=== PATIENT | female | born 1965 | race Caucasian/White ===

== ENCOUNTER 2019-04-29 11:57 | Emergency (ER) | payer SELFPAY ==
[2019-04-29] MEDS ORDERED: DIAZEPAM 5 MG TABLET ONE (13:21)
[2019-04-29] MEDS ORDERED: HYDROCODONE/APAP 10/325 TAB ONE (13:21)
--- NOTE | 2019-04-29 13:36 | RAD REPORT ---
EXAM DESCRIPTION: RAD - Shoulder Right 2 View - 04/29/2019 1:27 pm CLINICAL HISTORY: right arm pain COMPARISON: No comparisons FINDINGS: Mild AC joint degenerative changes are present. No acute fracture or dislocation seen.
--- NOTE | 2019-04-29 13:42 | RAD REPORT ---
EXAM DESCRIPTION: RAD - C Spine Ap/Lat - 04/29/2019 1:34 pm CLINICAL HISTORY: right arm pain COMPARISON: No comparisons FINDINGS: Cervical bodies are normal in height and alignment.No fracture or acute bony process seen. Small posterior osteophyte noted at C4-5. No prevertebral soft tissue thickening or other suspicious soft tissue finding. IMPRESSION: Mild C4-5 spondylosis.
--- NOTE | 2019-04-29 14:16 | ER ---
Nurse's Notes [facility] Name: Bárbara Beebe Age: 53 yrs Sex: Female : 1965 Arrival Date: 04/29/2019 Time: 12:00 Bed 11 Private MD: Diagnosis: Radiculopathy, cervical region Presentation: 04/29 12:22 Presenting complaint: Patient states: pain to R side of neck, R shoulder, and down R ch arm. worse with movment. denies trauma. states I hear my neck poping too. I have hx of scoliosis. pain has been there for the past 2.5 weeks, i cant take it any more. Transition of care: patient was not received from another setting of care. Onset of symptoms was March 2019. Risk Assessment: Do you want to hurt yourself or someone else? Patient reports no desire to harm self or others. Initial Sepsis Screen: Does the patient meet any 2 criteria? No. Patient's initial sepsis screen is negative. Does the patient have a suspected source of infection? No. Patient's initial sepsis screen is negative. Care prior to arrival: None. 12:22 Method Of Arrival: Ambulatory 12:22 Acuity: ANGELA 4 Triage Assessment: 12:24 General: Appears in no apparent distress. Behavior is calm, cooperative, appropriate for age. Pain: Complains of pain in right trapezius, right arm, right posterior aspect of neck and right lateral aspect of neck Pain currently is 7 out of 10 on a pain scale. Neuro: No deficits noted. 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 - Social history:: Smoking status: Patient uses tobacco products, smokes one-half pack cigarettes per day, Patient/guardian denies using alcohol, street drugs. - Ebola Screening: : Patient negative for fever greater than or equal to 101.5 degrees Fahrenheit, and additional compatible Ebola Virus Disease symptoms Patient denies exposure to infectious person Patient denies travel to an Ebola-affected area in the 21 days before illness onset No symptoms or risks identified at this time. Screenin:45 Abuse screen: Denies threats or abuse. Denies injuries from another. Nutritional ch screening: No deficits noted. Tuberculosis screening: No symptoms or risk factors identified. Fall Risk None identified. Assessment: 12:45 General: Appears in no apparent distress. uncomfortable, Behavior is cooperative, ch appropriate for age. Pain: Complains of pain in neck and right arm and right lateral aspect of neck Pain currently is 8 out of 10 on a pain scale. 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 pt co pain to R arm with movement. Respiratory: No deficits noted. Derm: Skin is pink, warm \T\ dry. Musculoskeletal: Capillary refill < 3 seconds, in bilateral fingers. toes. Range of motion: limited in right shoulder pt reports increase in pain with movement of R shoulder and neck. reports sharp shooting pains in entire arm. 14:23 Reassessment: Patient appears in no apparent distress at this time. Patient and/or ss family updated on plan of care and expected duration. Pain level reassessed. Patient is alert, oriented x 3, equal unlabored respirations, skin warm/dry/pink. Vital Signs: 12:24 BP 142 / 91; Pulse 94; Resp 16; Temp 97.8; Pulse Ox 98% on R/A; Weight 77.11 kg; Height 5 ft. 6 in. (167.64 cm); Pain 7/10; 12:24 Body Mass Index 27.44 (77.11 kg, 167.64 cm) ED Course: 12:00 Patient arrived in ED. as 12:23 Triage completed. 12:24 Arm band placed on right wrist. Patient placed in waiting room. 12:44 Nate Hansen PA is PHCP. [facility] 12:44 Juan Joaquin MD is Attending Physician. [facility] 12:45 Anupama Villela RN is Primary Nurse. 12:45 Patient has correct armband on for positive identification. Bed in low position. 13:28 XRAY C Spine Ap/lat In Process Unspecified. EDMS 13:28 Shoulder Right (2 View) XRAY In Process Unspecified. EDMS 14:15 Samson Reed MD is Referral Physician. [facility] 14:22 No provider procedures requiring assistance completed. Patient did not have IV access ss during this emergency room visit. Administered Medications: 13:22 Drug: [place] 10 mg-325 mg 1 tabs Route: PO; ss 14:23 Follow up: Response: No adverse reaction; Pain is decreased ss 13:22 Drug: Valium 5 mg Route: PO; ss 14:23 Follow up: Response: No adverse reaction; Marked relief of symptoms; Pain is decreased ss Outcome: 14:16 Discharge ordered by . jmm 14:22 Discharged to home ambulatory. ss 14:22 Condition: good 14:22 Discharge instructions given to patient, Instructed on discharge instructions, follow up and referral plans. medication usage, Demonstrated understanding of instructions, follow-up care, medications, Prescriptions given X 3. 14:23 Patient left the ED. ss Signatures: Dispatcher [employer] EDMS Anupama Villela, RN RN Nate Ma PA PA jmm Martinez, Amelia as Smirch, Shelby, RN RN ss
--- NOTE | 2019-04-29 14:16 | EDPHYS ---
Physician Documentation [facility] Name: Bárbara Beebe Age: 53 yrs Sex: Female : 1965 Arrival Date: 04/29/2019 Time: 12:00 Bed 11 Private MD: ED Physician Juan Joaquin HPI: 04/29 13:12 This 53 yrs old Female presents to ER via Ambulatory with complaints of Neck jmm Pain, <24hrs Old, Shoulder Pain. 13:12 The patient or guardian complains of pain. Onset: The symptoms/episode began/occurred jmm gradually, 3 week(s) ago. Associated signs and symptoms: Pertinent negatives: fever. The pain radiates to the right arm. Modifying factors: The symptoms are alleviated by nothing. the symptoms are aggravated by moving head. This is a 53 year old female with a history of htn, crohns disease that presents to the ED with complaints of right sided neck pain which radiates down the right arm. Denies chest pain. . 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 - Social history:: Smoking status: Patient uses tobacco products, smokes one-half pack cigarettes per day, Patient/guardian denies using alcohol, street drugs. - Ebola Screening: : Patient negative for fever greater than or equal to 101.5 degrees Fahrenheit, and additional compatible Ebola Virus Disease symptoms Patient denies exposure to infectious person Patient denies travel to an Ebola-affected area in the 21 days before illness onset No symptoms or risks identified at this time. ROS: 13:12 Constitutional: Negative for fever, chills, and weight loss, Cardiovascular: Negative jmm for chest pain, palpitations, and edema, Respiratory: Negative for shortness of breath, cough, wheezing, and pleuritic chest pain. 13:12 Neck: Positive for pain with movement. 13:12 MS/extremity: Positive for pain. 13:12 All other systems are negative. Exam: 13:12 Constitutional: This is a well developed, well nourished patient who is awake, alert, jmm and in no acute distress. Head/Face: atraumatic. Eyes: EOMI, no conjunctival erythema appreciated ENT: Moist Mucus Membranes Neck: Trachea midline, Supple Chest/axilla: Normal chest wall appearance and motion. Cardiovascular: Regular rate and rhythm. No edema appreciated Respiratory: Normal respirations, no respiratory distress appreciated Abdomen/GI: Non distended, soft Skin: General appearance color normal 13:12 Back: right trapezius is TTP, no midline tenderness. 13:12 Musculoskeletal/extremity: ROM: intact in all extremities, full media marketing specialist strength bilaterally. 13:12 Skin: Appearance: Color: normal in color. 13:12 Neuro: Orientation: is normal, Mentation: is normal, Memory: is normal. 13:12 Psych: Behavior/mood is pleasant, cooperative. Vital Signs: 12:24 BP 142 / 91; Pulse 94; Resp 16; Temp 97.8; Pulse Ox 98% on R/A; Weight 77.11 kg; Height ch 5 ft. 6 in. (167.64 cm); Pain 7/10; 12:24 Body Mass Index 27.44 (77.11 kg, 167.64 cm) ch MDM: 13:01 Patient medically screened. [facility] 14:14 Data reviewed: vital signs, nurses notes. Counseling: I had a detailed discussion with wilfrido the patient and/or guardian regarding: the historical points, exam findings, and any diagnostic results supporting the discharge/admit diagnosis, radiology results, the need for outpatient follow up, to return to the emergency department if symptoms worsen or persist or if there are any questions or concerns that arise at home. ED course: Patient is alert and non toxic in appearance in the ED. Patient is advised to follow up ith neurosurgery or pcp for further evaluation of pain. patient is advised to return to the ED if worsening pain or weakness develop. Patient understood and agrees with the plan of care. . 04/29 13:12 Order name: XRAY C Spine Ap/lat; Complete Time: 13:46 jm 04/29 13:12 Order name: Shoulder Right (2 View) XRAY; Complete Time: 13:43 [facility] Administered Medications: 13:22 Drug: [place] 10 mg-325 mg 1 tabs Route: PO; ss 14:23 Follow up: Response: No adverse reaction; Pain is decreased 13:22 Drug: Valium 5 mg Route: PO; ss 14:23 Follow up: Response: No adverse reaction; Marked relief of symptoms; Pain is decreased ss Disposition: 17:15 Co-signature as Attending Physician, Juan Joaquin MD. Disposition: 04/29/19 14:16 Discharged to Home. Impression: Radiculopathy, cervical region. - Condition is Stable. - Discharge Instructions: Cervical Radiculopathy. - Prescriptions for Tylenol- Codeine #3 300-30 mg Oral Tablet - take 1 tablet by ORAL route every 6 hours As needed; 20 tablet. Medrol (Remigio) 4 mg Oral Tablets, Dose Pack - take 1 tablet by ORAL route as directed - follow package instructions; 1 packet. orphenadrine citrate 100 mg Oral Tablet Sustained Release - take 1 tablet by ORAL route 2 times per day As needed; 20 tablet. - Medication Reconciliation Form, Thank You Letter, Antibiotic Education, Prescription Opioid Use form. - Follow up: Samson Reed MD; When: 2 - 3 days; Reason: Recheck today's complaints, Continuance of care, Re-evaluation by your physician. Signatures: Dispatcher [employer] EDAnupama Ruff RN RN Nate Ma PA PA jmm Smirch, Shelby, RN RN ss Starr, Gregory, MD MD Corrections: (The following items were deleted from the chart) 14:23 14:16 04/29/2019 14:16 Discharged to Home. Impression: Radiculopathy, cervical region. ss Condition is Stable. Forms are Medication Reconciliation Form, Thank You Letter, Antibiotic Education, Prescription Opioid Use. Follow up: Samson Reed; When: 2 - 3 days; Reason: Recheck today's complaints, Continuance of care, Re-evaluation by your physician. sajan
[2019-04-29 14:35] VITALS: BP 142/91; TEMP 97.8; O2SAT 98
== END 2019-04-29 14:23 | disposition home or self-care (01) ==
LOC: ER 11:57
DX: M54.12 Radiculopathy, cervical region (principal); I10 Essential (primary) hypertension
CPT/HCPCS: 72040; 99283

== ENCOUNTER 2019-07-05 12:13 | Emergency (ER) | payer SELFPAY ==
--- OUTSIDE RECORDS SUMMARY | 2019-07-05 12:16 | XMS REPORT ---
:1965 Author Organization [facility] Address [address] [place] [address] Care Team Providers Name Role Phone [facility] Primary Care Provider Unavailable Problems This patient has no known problems. Allergies, Adverse Reactions, Alerts This patient has no known allergies or adverse reactions. Medications This patient has no known medications. Encounters Start End Encounter Admission Attending Care Care Encounter Date/Time Date/Time Type Type Clinicians Facility Department ID 2017-03-26 2017-03-26 Emergency [facility] [id number] 14:55:00 14:55:00 2017-03-07 2017-03-07 Emergency [facility] [id number] 17:01:00 17:01:00 2017-02-22 2017-02-22 Emergency [facility] [id number] 11:40:00 11:40:00 Results Test Description Test Time Test Comments Text Results Atomic Results Result Comments XR Abdomen KUB 1 View 2019-03-15 18:15:18 Patient: KEKE HAYNES Date/Time03/15/2019 18:02 CDTReason for ExamAbdominal distentionReportXR ABDOMEN KUB 1 VIEWDIAGNOSIS: Right lower quadrant pain and distention for 3 daysNo bowel obstruction is seen. Vascular calcifications of the abdomen and pelvis. Surgical clips are noted from a cholecystectomy. Thoracolumbar dextroscoliosis and spondylosis are seen.IMPRESSION: No acute radiographic abnormality in the abdomen. Final Dictated by: MD Corrie, Rocky Mitchell DT/TM: 03/15/2019 6:14 pmSigned by: MD Denton Michael JackSigned (Electronic Signature): 03/15/2019 6:15 pm Urinalysis Microscopic 2019-03-15 16:19:42 Test Item Value Reference Range Comments UA WBC (test code=UA WBC) 0-5 /HPF 0-5 UA RBC (test code=UA RBC) 0-4 /HPF 0-4 UA Bacteria (test code=UA Bacteria) Negative /HPF Negative UA Squam Epithelial (test code=UA Squam Epithelial) 21-73 /LPF 0-20 Urinalysis with Culture, if [id number] 16:19:42 Test Item Value Reference Range Comments UA Color (test code=UA Color) Yellow Yellow UA Appear (test code=UA Appear) Clear Clear UA pH (test code=UA pH) 6.5 UA Spec Grav (test code=UA Spec 1.004 SGU 1.005-1.030 Grav) UA Glucose (test code=UA Negative Negative Glucose) UA Bili (test code=UA Bili) Negative Negative UA Ketones (test code=UA Negative Negative Ketones) UA Blood (test code=UA Blood) Trace Negative UA Protein (test code=UA Negative Negative Protein) UA Urobilinogen (test code=UA 0.2 EU/dL >0.2 Urobilinogen) UA Nitrite (test code=UA Negative Negative Nitrite) UA Leuk Est (test code=UA Leuk Negative Negative Est) UA Micro Ind? (test code=UA Indicated Not Indicated Result created by rule Micro Ind?) GL_SET_UA_MICRO_IND [id number] 16:13:11 Test Item Value Reference Range Comments Amylase Level (test code=Amylase Level) 53 IntlUnit/L 25-115 Comprehensive Metabolic [id number] 16:13:11 Test Item Value Reference Range Comments Sodium Level (test code=Sodium Level) 142 mmol/L 136-145 Potassium Level (test code=Potassium Level) 4.0 mmol/L 3.5-5.1 Chloride Level (test code=Chloride Level) 109 mmol/L 98-107 CO2 (test code=CO2) 26 mmol/L 21-32 Anion Gap (test code=Anion Gap) 7 mmol/L 7-16 BUN (test code=BUN) 11 mg/dL 7-18 Creatinine Level (test code=Creatinine Level) 0.5 mg/dL 0.6-1.0 Glucose Level (test code=Glucose Level) 95 mg/dL 74-106 Calcium Level (test code=Calcium Level) 9.4 mg/dL 8.5-10.1 Alk Phos (test code=Alk Phos) 109 IntlUnit/L 50-136 Bilirubin Total (test code=Bilirubin Total) 0.2 mg/dL 0.2-1.0 Albumin Level (test code=Albumin Level) 4.2 g/dL 3.4-5.0 Protein Total (test code=Protein Total) 7.5 g/dL 6.4-8.2 ALT (test code=ALT) 25 IntlUnit/L 12-78 AST (test code=AST) 20 IntlUnit/L 15-37 Comprehensive Metabolic [id number] 16:13:11 Test Item Value Reference Range Comments Sodium Level (test code=Sodium Level) 142 mmol/L 136-145 Potassium Level (test code=Potassium 4.0 mmol/L 3.5-5.1 Level) Chloride Level (test code=Chloride Level) 109 mmol/L 98-107 CO2 (test code=CO2) 26 mmol/L 21-32 Anion Gap (test code=Anion Gap) 7 mmol/L 7-16 BUN (test code=BUN) 11 mg/dL 7-18 Creatinine Level (test code=Creatinine 0.5 mg/dL 0.6-1.0 Level) Glucose Level (test code=Glucose Level) 95 mg/dL 74-106 Calcium Level (test code=Calcium Level) 9.4 mg/dL 8.5-10.1 Alk Phos (test code=Alk Phos) 109 IntlUnit/L 50-136 Bilirubin Total (test code=Bilirubin 0.2 mg/dL 0.2-1.0 Total) Albumin Level (test code=Albumin Level) 4.2 g/dL 3.4-5.0 Protein Total (test code=Protein Total) 7.5 g/dL 6.4-8.2 ALT (test code=ALT) 25 IntlUnit/L 12-78 AST (test code=AST) 20 IntlUnit/L 15-37 eGFR AA (test code=eGFR AA) >60 mL/min/1.73 m2 Comprehensive Metabolic [id number] 16:13:11 Test Item Value Reference Range Comments Sodium Level (test code=Sodium Level) 142 mmol/L 136-145 Potassium Level (test code=Potassium 4.0 mmol/L 3.5-5.1 Level) Chloride Level (test code=Chloride Level) 109 mmol/L 98-107 CO2 (test code=CO2) 26 mmol/L 21-32 Anion Gap (test code=Anion Gap) 7 mmol/L 7-16 BUN (test code=BUN) 11 mg/dL 7-18 Creatinine Level (test code=Creatinine 0.5 mg/dL 0.6-1.0 Level) Glucose Level (test code=Glucose Level) 95 mg/dL 74-106 Calcium Level (test code=Calcium Level) 9.4 mg/dL 8.5-10.1 Alk Phos (test code=Alk Phos) 109 IntlUnit/L 50-136 Bilirubin Total (test code=Bilirubin 0.2 mg/dL 0.2-1.0 Total) Albumin Level (test code=Albumin Level) 4.2 g/dL 3.4-5.0 Protein Total (test code=Protein Total) 7.5 g/dL 6.4-8.2 ALT (test code=ALT) 25 IntlUnit/L 12-78 AST (test code=AST) 20 IntlUnit/L 15-37 eGFR AA (test code=eGFR AA) >60 mL/min/1.73 m2 eGFR Non-AA (test code=eGFR Non-AA) >60 mL/min/1.73 m2 Automated [id number] 16:12:15 Test Item Value Reference Range Comments Neutro Auto (test code=Neutro Auto) 55.4 % Lymph Auto (test code=Lymph Auto) 36.3 % [place] Auto (test code=[place] Auto) 5.5 % Eos, Auto (test code=Eos, Auto) 1.9 % Basophil Auto (test code=Basophil Auto) 0.9 % Neutro Absolute (test code=Neutro Absolute) 4.9 x10 2.7-7.3 Lymph Absolute (test code=Lymph Absolute) 3.2 x10 0.8-3.5 [place] Absolute (test code=[place] Absolute) 0.5 x10 0.3-0.9 Eos Absolute (test code=Eos Absolute) 0.2 x10 0.0-0.3 Baso Absolute (test code=Baso Absolute) 0.1 x10 0.0-0.1 Complete Blood Count with [id number] 16:12:14 Test Item Value Reference Range Comments WBC (test code=WBC) 8.8 x10 4.8-10.8 RBC (test code=RBC) 4.47 x10 4.20-5.50 Hgb (test code=Hgb) 13.9 g/dL 12.0-16.0 MCV (test code=MCV) 91.6 fL 80.0-95.0 Hct (test code=Hct) 41.0 % 35.0-47.0 RDW (test code=RDW) 13.4 % 11.5-14.5 MCHC (test code=MCHC) 33.9 g/dL 31.0-36.0 MCH (test code=MCH) 31.0 pg 26.0-32.0 Platelets (test 342 x10 140-440 code=Platelets) MPV (test code=MPV) 6.8 fL 7.5-11.2 Slide Review (test code=Slide Auto Result created by Review) GL_SET_SLIDE_REVIEW_AUTO Comprehensive Metabolic [id number] 14:21:14 Test Item Value Reference Range Comments Sodium Level (test code=Sodium Level) 138 mmol/L 136-145 Potassium Level (test code=Potassium Level) 4.3 mmol/L 3.5-5.1 Chloride Level (test code=Chloride Level) 105 mmol/L 98-107 CO2 (test code=CO2) 27 mmol/L 21-32 Anion Gap (test code=Anion Gap) 6 mmol/L 7-16 BUN (test code=BUN) 6 mg/dL 7-18 Creatinine Level (test code=Creatinine Level) 0.6 mg/dL 0.6-1.0 Glucose Level (test code=Glucose Level) 114 mg/dL 74-106 Calcium Level (test code=Calcium Level) 9.4 mg/dL 8.5-10.1 Alk Phos (test code=Alk Phos) 125 IntlUnit/L 50-136 Bilirubin Total (test code=Bilirubin Total) 0.4 mg/dL 0.2-1.0 Albumin Level (test code=Albumin Level) 4.1 g/dL 3.4-5.0 Protein Total (test code=Protein Total) 7.5 g/dL 6.4-8.2 ALT (test code=ALT) 31 IntlUnit/L 12-78 AST (test code=AST) 22 IntlUnit/L 15-37 Comprehensive Metabolic [id number] 14:21:14 Test Item Value Reference Range Comments Sodium Level (test code=Sodium Level) 138 mmol/L 136-145 Potassium Level (test code=Potassium 4.3 mmol/L 3.5-5.1 Level) Chloride Level (test code=Chloride Level) 105 mmol/L 98-107 CO2 (test code=CO2) 27 mmol/L 21-32 Anion Gap (test code=Anion Gap) 6 mmol/L 7-16 BUN (test code=BUN) 6 mg/dL 7-18 Creatinine Level (test code=Creatinine 0.6 mg/dL 0.6-1.0 Level) Glucose Level (test code=Glucose Level) 114 mg/dL 74-106 Calcium Level (test code=Calcium Level) 9.4 mg/dL 8.5-10.1 Alk Phos (test code=Alk Phos) 125 IntlUnit/L 50-136 Bilirubin Total (test code=Bilirubin 0.4 mg/dL 0.2-1.0 Total) Albumin Level (test code=Albumin Level) 4.1 g/dL 3.4-5.0 Protein Total (test code=Protein Total) 7.5 g/dL 6.4-8.2 ALT (test code=ALT) 31 IntlUnit/L 78 AST (test code=AST) 22 IntlUnit/L 15-37 eGFR AA (test code=eGFR AA) >60 mL/min/1.73 m2 Comprehensive Metabolic [id number] 14:21:14 Test Item Value Reference Range Comments Sodium Level (test code=Sodium Level) 138 mmol/L 136-145 Potassium Level (test code=Potassium 4.3 mmol/L 3.5-5.1 Level) Chloride Level (test code=Chloride Level) 105 mmol/L 98-107 CO2 (test code=CO2) 27 mmol/L 21-32 Anion Gap (test code=Anion Gap) 6 mmol/L 7-16 BUN (test code=BUN) 6 mg/dL 7-18 Creatinine Level (test code=Creatinine 0.6 mg/dL 0.6-1.0 Level) Glucose Level (test code=Glucose Level) 114 mg/dL 74-106 Calcium Level (test code=Calcium Level) 9.4 mg/dL 8.5-10.1 Alk Phos (test code=Alk Phos) 125 IntlUnit/L 50-136 Bilirubin Total (test code=Bilirubin 0.4 mg/dL 0.2-1.0 Total) Albumin Level (test code=Albumin Level) 4.1 g/dL 3.4-5.0 Protein Total (test code=Protein Total) 7.5 g/dL 6.4-8.2 ALT (test code=ALT) 31 IntlUnit/L 12-78 AST (test code=AST) 22 IntlUnit/L 15-37 eGFR AA (test code=eGFR AA) >60 mL/min/1.73 m2 eGFR Non-AA (test code=eGFR Non-AA) >60 mL/min/1.73 m2 Pro B Natriuretic [id number] 14:05:15 Test Item Value Reference Range Comments NT-proBNP (test 6 pg/mL 0-125 < 300 pg/ml - heart failure code=NT-proBNP) unlikelyAge less than 50 years, > 450 pg/ml - heart failure lilkelyAge 50 - 75 years, > 900 pg/ml - heart failure likelyAge greater than 75 years, > 1800 pg/ml - heart failure likely Complete Blood Count with [id number] 13:59:12 Test Item Value Reference Range Comments WBC (test code=WBC) 12.0 x10 4.8-10.8 RBC (test code=RBC) 4.86 x10 4.20-5.50 Hgb (test code=Hgb) 14.6 g/dL 12.0-16.0 MCV (test code=MCV) 88.9 fL 80.0-95.0 Hct (test code=Hct) 43.2 % 35.0-47.0 MCHC (test code=MCHC) 33.9 g/dL 31.0-36.0 RDW (test code=RDW) 13.7 % 11.5-14.5 MCH (test code=MCH) 30.1 pg 26.0-32.0 Platelets (test 470 x10 140-440 code=Platelets) MPV (test code=MPV) 6.2 fL 7.5-11.2 Slide Review (test code=Slide Auto Result created by Review) GL_SET_SLIDE_REVIEW_AUTO Automated [id number] 13:59:12 Test Item Value Reference Range Comments Neutro Auto (test code=Neutro Auto) 68.5 % Lymph Auto (test code=Lymph Auto) 24.5 % [place] Auto (test code=[place] Auto) 5.6 % Eos, Auto (test code=Eos, Auto) 1.0 % Basophil Auto (test code=Basophil Auto) 0.4 % Neutro Absolute (test code=Neutro Absolute) 8.2 x10 2.7-7.3 Lymph Absolute (test code=Lymph Absolute) 2.9 x10 0.8-3.5 [place] Absolute (test code=[place] Absolute) 0.7 x10 0.3-0.9 Eos Absolute (test code=Eos Absolute) 0.1 x10 0.0-0.3 Baso Absolute (test code=Baso Absolute) 0.0 x10 0.0-0.1 XR Chest 2 [id number] 13:41:47Patient: KEKE HAYNES Date/Time02/24/201913:18 CDTReason for ExamShortness of breathReportInformation: Dyspnea, chest pain, cough and hypertensionChest 2 viewsIn comparison to prior chest x-ray dated 10/06/2018 there is bilateral pulmonary hyperexpansion. The heart and mediastinum are normal. Pulmonary vascularity is unremarkable. Small scattered healed fibrocalcific deposits are identified.IMPRESSION:1. Pulmonary hyperexpansion consistent with COPD2. Sequela of old granulomatous disease. Final Dictated by: MD Webster Gustavo MDictated DT/TM: 02/24/2019 1:40 pmSigned by : MD Webster Gustavo MSigned (Electronic Signature): 02/24/2019 1:41 pmXR Chest 2 [id number] 10:31:38Patient: KEKE HAYNES Date/Time10/06/2018 10:23 CDTReason for ExamCoughReportXR CHEST 2 VIEWSDIAGNOSIS: Cough and chest painThe heart, lungs and bony thorax are unremarkable and unchanged since 09/22/2018. Hyperinflation suggesting early COPD.IMPRESSION: No active disease and no change since 2018. Final Dictated by: MD Denton Michael JackDictjacob DT/TM: 10:30 amSigned by: MD Denton Michael JackSigned (Electronic Signature): 10/06/2018 10:31 amXR Chest 2 [id number] 14:38:49Patient: KEKE HAYNES Date/ Time09/22/201814:05 CSTReason for ExamRespiratory distressReportCHEST 2 VIEWS: HISTORY: Respiratory distress, fever, shortness of breathCOMPARISON: 2017The cardiomediastinal silhouette shows no significant abnormality.No pleural fluid or pulmonary infiltrates are identified.The bony architecture appears intact, where adequately seen.IMPRESSION:No active cardiopulmonary process is identified. Final Dictated by: MD Azevedo Ramon JulioDictated DT/TM: 09/22/2018 2:38 pmSigned by: MD Azevedo Ramon JulioSigned (Electronic Signature): 09/22/2018 2:38 pmXR Ankle Complete 3+ Views [id number] 07:53:52Patient: KEKE HAYNES Date/Time09/04/2018 22:40 CSTReason for ExamInjuryReportEXAMINATION: Right ankle 3 viewsTECHNIQUE: AP, lateral, and oblique views of the right ankle were performed.COMPARISON: NoneINDICATION: Fall with posttraumatic right ankle painFINDINGS:No acute fracture-dislocation. No osseous erosions or periosteal reaction. Jointspaces are are relatively well- maintained. No radiopaque foreign bodies. Soft tissues are grossly unremarkable.IMPRESSION:No acute osseous abnormalities of the right ankle. Final Dictated by: MD Cruz, SamerDictated DT/TM: 09/05/2018 7:49 amSigned by: MD Cruz, RuthrSigned (Electronic Signature): 09/05/2018 7: 53 amXR Foot Complete 3+ Views [id number] 07:53:39Patient: KEKE HAYNES Date/Time09/04/2018 22: 40 CSTReason for ExamInjuryReportEXAMINATION: Left foot 3 viewsTECHNIQUE: AP, lateral, and oblique views of the left foot were performed.COMPARISON: Left foot x-rays 01/05/2008INDICATION: Fall with posttraumatic left foot painFINDINGS: No acute fracture-dislocation. No osseous erosions or periostealreaction. Mild degenerative changes of the midfoot. No radiopaque foreign bodies. Soft tissues are grossly unremarkable.IMPRESSION:No acute osseous abnormalities of the left foot. Final Dictated by: MD Cruz, SamerDictated DT/TM: 2018 7:52 amSigned by: MD Cruz, SamerSigned(Electronic Signature): 2018 7:53 amCT Abdomen and Pelvis w/o [id number] 14:15:18Patient: KEKE HAYNES Date/ Time07/09/2018 13:45 CSTReason for Examhematuria, RLQ pain; HematuriaReportREASON FOR STUDY: Hematuria;hematuria, RLQ painCT ABDOMEN AND CT PELVIS WITHOUT CONTRAST:Radiation dose lowering techniques were used with automated exposure control, adjusting the mA according to patient's size.Multiple transverse images were obtained through the upper abdomen and the pelvis. No intravenous contrast material was administered, as ordered.Small 4 mm nodule noted in the right lower lobe. Suggest 6-8 month follow-up CT scan. Small bullous changes are noted in the left base. Stable density in the left base may represent a focal area of scar.Calcific granulomas are noted within the spleen.There is evidence of prior cholecystectomy.Surgical clip noted along the anterior upper pelvis. The spleen has a normal appearance. The pancreas is unremarkable.Common duct measures 7 mm without definite intrahepatic duct dilatation.No abnormalities are demonstrated in the kidneys. No hydronephrosis is observed.No enlarged lymph nodes areseen in the retroperitoneum or the pelvis. There are a few diverticula involving the left colon without signs of diverticulitis.IMPRESSION:4 mm right lower lobe nodule. Small additional area of focal scarring left lung base with a few small bulla present. Recommend follow-up CT chest 6-8 months.Statuspost cholecystectomy with no intrahepatic duct dilatation.Nonobstructive bowel pattern with a few noncomplicated left colonic diverticula. Final Dictated by: MD Leary Craig ADictated DT/TM: 07/09/2018 2:02 pmSigned by: MD Leary Craig ASigned ( Electronic Signature): 07/09/2018 2:[id number] 18:24:00 Test Item Value Reference Range Comments GLUCOSE (test code=URGLU) NEGATIVE MG/DL NEG-100 BILIRUBN (test code=URBILI) NEGATIVE NEGATIVE KETONE (test code=URKET) NEGATIVE MG/DL NEGATIVE BLOOD (test code=URBLD) TRACE UR PH (test code=URPH) 8.0 5.0-7.5 PROTEIN (test code=URPRO) NEGATIVE MG/DL NEGATIVE NITRITES (test code=URNIT) NEGATIVE NEGATIVE UROBILINGEN (test code=URURO) 0.2 EU/DL 0.2-1.0 LEUKOCYT (test code=URLEU) NEGATIVE NEGATIVE UA COLOR (test code=UA COLOR) YELLOW YELLOW CLARITY (test code=CLARITY) CLEAR CLEAR SP GRAV (test code=URSPGRAV) 1.005 1.000-1.025 UAMICRO (test code=UAMICRO) YES WBC (test code=URWBC) 0 /HPF 0-5 RBC (test code=URRBC) 3 /HPF 0-2 CASTS (test code=CAST) 1 /LPF 0-3 UR EPI (test code=EPI) 15 /LPF BACTERIA (test code=BACTERIA) NEGATIVE NONE [id number] 18:16:00 Test Item Value Reference Range Comments SODIUM (test code=NA) 143 MMOL/L 137-145 K+ (test code=KSERUM) 3.4 MMOL/L 3.5-5.1 PLEASE NOTE NEW REFERENCE RANGE(S) IN EFFECT EFFECTIVE 02/22/2010 - NEW ANALYZER (coRank [id number]) CHLORIDE (test code=CL) 108 MMOL/L 98-107 CO2 (test code=CO2) 30 MMOL/L 22-30 BUN (test code=BUN) 9 MG/DL 7-17 CREA (test code=CREA) 0.5 MG/DL 0.7-1.2 GLUCOSE (test 98 MG/DL 70-99 Fasting glucose normal code=GLUCOSE) <100 MG/DL- P[employer] recommendation CALCIUM (test 9.7 MG/DL 8.4-10.2 code=CABLOOD) TOTPROT (test 7.2 G/DL 6.3-8.2 code=TOTPROT) ALBUMIN (test 4.5 G/DL 3.5-5.0 code=ALBSERUM) BILITOT (test 0.3 MG/DL 0.2-1.3 code=BILITOT) AST (test code=AST) 27 U/L 15-46 PHOSALK (test 80 U/L 38-126 code=PHOSALK) ALT (test code=ALT) 33 U/L 13-69 GFR (test code=GFR) 137 mL/min/1.73m2 A GFR of >90 mL/min/1.73m2 is considered normal. [id number] 18:16:00 Test Item Value Reference Range Comments LIPASE (test code=LIPA) 95 U/L 23-300 [id number] 18:07:00 Test Item Value Reference Range Comments WBC (test code=WBC) 6.9 K/UL 3.5-10.9 RBC (test code=RBC) 4.14 M/UL 4.0-5.0 HGB (test code=HGB) 12.5 G/DL 11.5-15.5 HCT (test code=HCT) 36.5 % 34-46 MCV (test code=MCV) 88.2 FL 80-98 MCH (test code=MCH) 30.2 PG 28-32 MCHC (test code=MCHC) 34.2 G/DL 32.5-36.5 RDW (test code=RDW) 13.0 % 11.5-14.5 PLT (test code=PLT) 343 K/UL 150-450 MPV (test code=MPV) 8.8 FL 7.4-10.4 MANDIFF (test code=MANDIFF) NO SCAN (test code=SCAN) NO NEUT% (test code=NEUT%) 50.6 % 40-75 LYMPH% (test code=LYMPH%) 41.2 % 24-44 MONO% (test code=MONO%) 5.8 % 0-13 EOS% (test code=EOS%) 1.9 % 0-4 BASO % (test code=BASO%) 0.4 % 0-2 IG (test code=IG) 0 % 0-1 IG% (test code=IG%) 0.1 % 0-1 IG%=Metamyelocytes, Myelocytes, and Promyelocytes. (Immature neutrophils not including "bands".) > 3% IG indicates risk of sepsis NRBC% (test code=NRBC%) 0 /100 WBC ABS NEUT (test code=NEUT) 3.5 K/UL 1.2-7.2 OCCULT BLOOD, [id number] 06:35:00 Test Item Value Reference Range Comments OCCULT BLOOD FECES (test code=OCCBLFEC) NEGATIVE NEGATIVE LOT# CRD (test code=LOT# CRD) 23088 EXP CRD (test code=EXP CRD) 10-20 LOT# DVL (test code=LOT# DVL) [id number] EXP DVL (test code=EXP DVL) 7-21 INT QC (test code=INT QC) PASSED [id number] 00:14:00 Test Item Value Reference Range Comments SODIUM (test code=NA) 143 MMOL/L 137-145 K+ (test code=KSERUM) 4.5 MMOL/L 3.5-5.1 PLEASE NOTE NEW REFERENCE RANGE(S) IN EFFECT EFFECTIVE 02/22/2010 - NEW ANALYZER (coRank [id number]) CHLORIDE (test code=CL) 108 MMOL/L 98-107 CO2 (test code=CO2) 24 MMOL/L 22-30 BUN (test code=BUN) 12 MG/DL 7-17 CREA (test code=CREA) 0.6 MG/DL 0.7-1.2 GLUCOSE (test 95 MG/DL 70-99 Fasting glucose normal code=GLUCOSE) <100 MG/DL- P[employer] recommendation CALCIUM (test 9.8 MG/DL 8.4-10.2 code=CABLOOD) TOTPROT (test 6.8 G/DL 6.3-8.2 code=TOTPROT) ALBUMIN (test 4.2 G/DL 3.5-5.0 code=ALBSERUM) BILITOT (test 0.2 MG/DL 0.2-1.3 code=BILITOT) AST (test code=AST) 23 U/L 15-46 PHOSALK (test 87 U/L 38-126 code=PHOSALK) ALT (test code=ALT) 61 U/L 13-69 GFR (test code=GFR) 111 mL/min/1.73m2 A GFR of >90 mL/min/1.73m2 is considered normal. [id number] 00:14:00 Test Item Value Reference Range Comments LIPASE (test code=LIPA) 134 U/L 23-300 ABDOMEN 2 [id number] 21:18:[address] [id number] IMAGING REPORTPatient Name: Amaris HAYNES of Service: [id number]: 52 Sex: F Order #: [id number] [facility] 1965 [facility] Number: [id number] Record Number: [id number] Hospital Number: [id number] Physician: YANNA HAROOrdering Physician: Mallika MAY.History: Abdomen pain.Technique: 3 supine and upright abdominal projections were obtained andreviewed.Findings:There is no specific acute appearing abdominal abnormality.There is no evidence to suggest obstruction or free air.The osseous structures appear intact. There is rotatory dextroscoliosis ofthe lumbar spine.Impression:No specific acute appearing abdominal abnormalities.Electronically Signed By: Hao Cole M.D., 2017 9:16 PMLegally authenticated by CLARA Talley 2018-04-04 21:16: [id number] 17:07:00 Test Item Value Reference Range Comments WBC (test code=WBC) 10.3 K/UL 3.5-10.9 RBC (test code=RBC) 3.62 M/UL 4.0-5.0 HGB (test code=HGB) 11.5 G/DL 11.5-15.5 HCT (test code=HCT) 33.6 % 34-46 MCV (test code=MCV) 92.8 FL 80-98 MCH (test code=MCH) 31.8 PG 28-32 MCHC (test code=MCHC) 34.2 G/DL 32.5-36.5 RDW (test code=RDW) 14.1 % 11.5-14.5 PLT (test code=PLT) 663 K/UL 150-450 MPV (test code=MPV) 8.1 FL 7.4-10.4 MANDIFF (test code=MANDIFF) NO SCAN (test code=SCAN) NO NEUT% (test code=NEUT%) 54.7 % 40-75 LYMPH% (test code=LYMPH%) 35.4 % 24-44 MONO% (test code=MONO%) 6.4 % 0-13 EOS% (test code=EOS%) 2.4 % 0-4 BASO % (test code=BASO%) 0.4 % 0-2 IG (test code=IG) 0 % 0-1 IG% (test code=IG%) 0.7 % 0-1 IG%=Metamyelocytes, Myelocytes, and Promyelocytes. (Immature neutrophils not including "bands".) > 3% IG indicates risk of sepsis NRBC% (test code=NRBC%) 0 /100 WBC ABS NEUT (test code=NEUT) 5.6 K/UL 1.2-7.2 [id number] 17:06:00 Test Item Value Reference Range Comments GLUCOSE (test code=URGLU) NEGATIVE MG/DL NEG-100 BILIRUBN (test code=URBILI) NEGATIVE NEGATIVE KETONE (test code=URKET) NEGATIVE MG/DL NEGATIVE BLOOD (test code=URBLD) NEGATIVE UR PH (test code=URPH) 6.5 5.0-7.5 PROTEIN (test code=URPRO) NEGATIVE MG/DL NEGATIVE NITRITES (test code=URNIT) NEGATIVE NEGATIVE UROBILINGEN (test code=URURO) 0.2 EU/DL 0.2-1.0 LEUKOCYT (test code=URLEU) NEGATIVE NEGATIVE UA COLOR (test code=UA COLOR) YELLOW YELLOW CLARITY (test code=CLARITY) CLEAR CLEAR SP GRAV (test code=URSPGRAV) 1.005 1.000-1.025 UAMICRO (test code=UAMICRO) NO CT ABDOMEN/PELVIS [id number] 16:28:[address] [id number] IMAGING REPORTPatient Name : Amaris HAYNES of Service: [id number]: 52 Sex: F Order #: [id number] [facility] 1965 X-Ray Number: [id number] Record Number: [id number] Hospital Number: [id number] Physician: YANNA HAROOrdering Physician: DANETTE CLARK ABDOMEN/PELVIS WITH 04/01/2018 3:52 PMHistory: Abd pain without fever, nausea, vomiting, Crohn's diseaseComparisons : 01/26/2016This CT exam was performed using one or more of the following dosereduction techniques: Automated exposure control, adjustment of the MAand/ or KV according to patient size or use of iterative reconstructiontechnique.IV and oral contrast was administered for the procedure.FINDINGS:There is diffuse mucosal thickening of the distal descending colon andsigmoid colon, likely representing Crohn's disease.There is a moderate amount colonic fecal loading.There is no small bowel obstruction.There has been cholecystectomy with dilated biliary system also seen onprevious exam.Both kidneys enhance symmetrically without hydronephrosis.There are splenic calcifications.There is no evidence for ascites, pneumoperitoneum or pneumatosis.IMPRESSION:Nonspecific mucosal thickening of the distal colon most likely related tohistory of Crohn's disease.There is no associated perforation or abscess.Electronically Signed By: Juan Rodriguez M.D., 04/01/2018 4:25 PMLegally authenticated by GEORG[place] WISEMAN 2018-04-01 16:25:[id number] 14:29:00 Test Item Value Reference Range Comments BLOOD TYPE (test code=TYPE) O Rh Positive ANTIBODY SCREEN (test code=SCREEN) NEGATIVE NEGATIVE PROTHROMBIN TIME WITH [id number] 14:13:00 Test Item Value Reference Range Comments PROTHROMBIN TIME (test 12.5 SECONDS 12.0-14.6 INR Usual Range=2 to 3 for code=PT) prevention of deep vein thrombosis (DVT) INR (test code=INR) 0.9 [id number] 14:13:00 Test Item Value Reference Range Comments PTT (test code=PTT) 37.8 SECONDS 24.4-36.3 HEPARIN THERAPEUTIC RANGE 57-92 SECONDS [id number] 14:00:00 Test Item Value Reference Range Comments SODIUM (test code=NA) 140 MMOL/L 137-145 K+ (test code=KSERUM) 4.3 MMOL/L 3.5-5.1 PLEASE NOTE NEW REFERENCE RANGE(S) IN EFFECT EFFECTIVE 02/22/2010 - NEW ANALYZER (coRank [id number]) CHLORIDE (test code=CL) 103 MMOL/L 98-107 CO2 (test code=CO2) 29 MMOL/L 22-30 BUN (test code=BUN) 7 MG/DL 7-17 CREA (test code=CREA) 0.5 MG/DL 0.7-1.2 GLUCOSE (test 100 MG/DL 70-99 Fasting glucose normal code=GLUCOSE) <100 MG/DL- [employer] recommendation CALCIUM (test 9.5 MG/DL 8.4-10.2 code=CABLOOD) TOTPROT (test 6.6 G/DL 6.3-8.2 code=TOTPROT) ALBUMIN (test 4.1 G/DL 3.5-5.0 code=ALBSERUM) BILITOT (test 0.4 MG/DL 0.2-1.3 code=BILITOT) AST (test code=AST) 72 U/L 15-46 PHOSALK (test 117 U/L 38-126 code=PHOSALK) ALT (test code=ALT) 139 U/L 13-69 GFR (test code=GFR) 137 mL/min/1.73m2 A GFR of >90 mL/min/1.73m2 is considered normal. [id number] 14:00:00 Test Item Value Reference Range Comments LIPASE (test code=LIPA) 40 U/L 23-300 [id number] 13:51:00 Test Item Value Reference Range Comments WBC (test code=WBC) 12.5 K/UL 3.5-10.9 RBC (test code=RBC) 3.40 M/UL 4.0-5.0 HGB (test code=HGB) 10.5 G/DL 11.5-15.5 HCT (test code=HCT) 31.8 % 34-46 MCV (test code=MCV) 93.5 FL 80-98 MCH (test code=MCH) 30.9 PG 28-32 MCHC (test code=MCHC) 33.0 G/DL 32.5-36.5 RDW (test code=RDW) 13.8 % 11.5-14.5 PLT (test code=PLT) 441 K/UL 150-450 MPV (test code=MPV) 8.5 FL 7.4-10.4 MANDIFF (test code=MANDIFF) NO SCAN (test code=SCAN) NO NEUT% (test code=NEUT%) 70.7 % 40-75 LYMPH% (test code=LYMPH%) 21.5 % 24-44 MONO% (test code=MONO%) 4.7 % 0-13 EOS% (test code=EOS%) 2.3 % 0-4 BASO % (test code=BASO%) 0.2 % 0-2 IG (test code=IG) 0 % 0-1 IG% (test code=IG%) 0.6 % 0-1 IG%=Metamyelocytes, Myelocytes, and Promyelocytes. (Immature neutrophils not including "bands".) > 3% IG indicates risk of sepsis ABS NEUT (test code=NEUT) 8.8 K/UL 1.2-7.2 [id number] 13:22:00 Test Item Value Reference Range Comments GLUCOSE (test code=URGLU) NEGATIVE MG/DL NEG-100 BILIRUBN (test code=URBILI) NEGATIVE NEGATIVE KETONE (test code=URKET) NEGATIVE MG/DL NEGATIVE BLOOD (test code=URBLD) NEGATIVE UR PH (test code=URPH) 7.5 5.0-7.5 PROTEIN (test code=URPRO) NEGATIVE MG/DL NEGATIVE NITRITES (test code=URNIT) NEGATIVE NEGATIVE UROBILINGEN (test code=URURO) 0.2 EU/DL 0.2-1.0 LEUKOCYT (test code=URLEU) NEGATIVE NEGATIVE UA COLOR (test code=UA COLOR) YELLOW YELLOW CLARITY (test code=CLARITY) CLEAR CLEAR SP GRAV (test code=URSPGRAV) 1.003 1.000-1.025 UAMICRO (test code=UAMICRO) NO SPINE LUMBAR [id number] 13:32:[address] [id number] IMAGING REPORTPatient Name: DALLAS Amaris of Service: [id number]: 51 Sex: F Order #: [id number] Room: [facility]: 1965 X-Ray Number: [id number] Record Number: [id number] Hospital Number: [id number] Physician: MICHELLE YEOrdering Physician: LAURNECE HONG SPINE 5 VIEWS:CLINICALHISTORY: Back pain radiates into both legs and hipsTECHNIQUE: AP, lateral, bilateral oblique and coned-down lateral views wereobtainedFINDINGS:There are 5 nonrib-bearing lumbar vertebral bodies demonstrated.There is no fracture or dislocation demonstrated.Changes of discogenic disease are noted at L5-S1 with degenerative changesin the articular facets.There are surgical clips in the right upper quadrant and overlying theright sacroiliac joint.Impression:1. No acute changes are demonstrated.2. Chronic changes as described.Electronically Signed By: Jim Streeter M.D. , 10/16/2017 1:29 PMLegally authenticated by JENNIFER Daniels 2017-10-16 13:29 :[id number] 12:33:00 Test Item Value Reference Range Comments GLUCOSE (test code=URGLU) NEGATIVE MG/DL NEG-100 BILIRUBN (test code=URBILI) NEGATIVE NEGATIVE KETONE (test code=URKET) NEGATIVE MG/DL NEGATIVE BLOOD (test code=URBLD) NEGATIVE UR PH (test code=URPH) 5.5 5.0-7.5 PROTEIN (test code=URPRO) NEGATIVE MG/DL NEGATIVE NITRITES (test code=URNIT) NEGATIVE NEGATIVE UROBILINGEN (test code=URURO) 0.2 EU/DL 0.2-1.0 LEUKOCYT (test code=URLEU) NEGATIVE NEGATIVE UA COLOR (test code=UA COLOR) YELLOW YELLOW CLARITY (test code=CLARITY) CLEAR CLEAR SP GRAV (test code=URSPGRAV) 1.010 1.000-1.025 UAMICRO (test code=UAMICRO) NO WBC (test code=URWBC) 1 /HPF 0-5 RBC (test code=URRBC) 1 /HPF 0-2 CASTS (test code=CAST) 0 /LPF 0-3 UR EPI (test code=EPI) 25 /LPF BACTERIA (test code=BACTERIA) NEGATIVE NONE [id number] 06:46:50CHEST 2 VIEWREASON FOR STUDY: COPD-Cough- SOBFINDINGS:The heart and mediastinum are within normal limits. Minor linearscarring or atelectasis is noted involving the right infrahilar region.Lungs appear slightly hyperinflated. Bony structures appear intact. . No other significant findings. IMPRESSION: Minor linear scarring or atelectasis involving the right infrahilarregion. Chest is otherwise clear.
[2019-07-05] MEDS ORDERED: HYDROCODONE/APAP 5/325 MG TAB ONE (13:40)
[2019-07-05] MEDS ORDERED: DIAZEPAM 5 MG TABLET ONE (13:41)
[2019-07-05 13:50] LABS: Urine Blood TRACE (NEG); Urine Glucose NEGATIVE (NEG); Urine Protein NEGATIVE (NEG); Urine Specific Gravity <1.005 (1.005-1.030); Urine pH 5.5 (5.0-7.0)
[2019-07-05] MEDS ORDERED: dexAMETHasone 10 MG/ML VIAL ONE (13:55)
--- NOTE | 2019-07-05 14:57 | ER ---
Nurse's Notes [facility] Name: Bárbara Beebe Age: 53 yrs Sex: Female : 1965 Arrival Date: 07/05/2019 Time: 12:17 Bed 23 Private MD: Diagnosis: Low back pain Presentation: 07/05 12:20 Presenting complaint: Low back pain x 3 days. Denies injury. Transition of care: hb patient was not received from another setting of care. Onset of symptoms was July 03, 2019. Risk Assessment: Do you want to hurt yourself or someone else? Patient reports no desire to harm self or others. Initial Sepsis Screen: Does the patient meet any 2 criteria? No. Patient's initial sepsis screen is negative. Does the patient have a suspected source of infection? No. Patient's initial sepsis screen is negative. Care prior to arrival: None. 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 - Social history:: Smoking status: Patient uses tobacco products, smokes one-half pack cigarettes per day. - Ebola Screening: : No symptoms or risks identified at this time. Screenin:00 Fall Risk None identified. mg2 15:11 Abuse screen: Denies threats or abuse. Denies injuries from another. Nutritional mg2 screening: No deficits noted. Tuberculosis screening: No symptoms or risk factors identified. Assessment: 14:00 General: Appears in no apparent distress. comfortable, Behavior is calm, cooperative. mg2 14:00 Pain: Complains of pain in right low back Pain does not radiate. Pain currently is 8 mg2 out of 10 on a pain scale. Neuro: Level of Consciousness is awake, alert, obeys commands, Oriented to person, place, time, situation. Cardiovascular: Capillary refill < 3 seconds Patient's skin is warm and dry. Respiratory: Airway is patent Respiratory effort is even, unlabored, Respiratory pattern is regular, symmetrical. GI: No signs and/or symptoms were reported involving the gastrointestinal system. : No signs and/or symptoms were reported regarding the genitourinary system. EENT: No signs and/or symptoms were reported regarding the EENT system. Derm: Skin is intact, is healthy with good turgor, Skin is pink, warm \T\ dry. normal. Musculoskeletal: Circulation, motion, and sensation intact. Capillary refill < 3 seconds, Reports pain in back. Vital Signs: 12:21 BP 179 / 88; Pulse 90; Resp 16; Temp 98.3; Pulse Ox 100% on R/A; Weight 68.04 kg; hb Height 5 ft. 2 in. (157.48 cm); Pain 6/10; 15:05 BP 148 / 80; Pulse 72; Resp 16; Temp 97.9(O); Pulse Ox 98% ; lt1 12:21 Body Mass Index 27.44 (68.04 kg, 157.48 cm) hb ED Course: 12:17 Patient arrived in ED. mr 12:20 Triage completed. hb 12:21 Arm band placed on. hb 13:05 Nate Hansen PA is PHCP. [facility] 13:05 Kamari Salvador MD is Attending Physician. [facility] 13:27 Uri Miller, FRANKI is Primary Nurse. mg2 15:12 Patient has correct armband on for positive identification. mg2 15:12 No provider procedures requiring assistance completed. Patient did not have IV access mg2 during this emergency room visit. Administered Medications: 13:40 Drug: Valium 5 mg Route: PO; mg2 15:01 Follow up: Response: No adverse reaction; Marked relief of symptoms mg2 13:41 Drug: [place] 5 mg-325 mg 1 tabs Route: PO; mg2 15:01 Follow up: Response: No adverse reaction; Marked relief of symptoms mg2 13:57 Drug: Decadron 10 mg Route: IM; Site: left gluteus; mg2 15:01 Follow up: Response: No adverse reaction; Marked relief of symptoms mg2 Outcome: 14:56 Discharge ordered by . jmm 15:12 Discharged to home ambulatory, with family. mg2 15:12 Condition: stable 15:12 Discharge instructions given to patient, family, Instructed on discharge instructions, follow up and referral plans. medication usage, Demonstrated understanding of instructions, follow-up care, medications, Prescriptions given X 3. 15:12 Patient left the ED. mg2 Signatures: Nate Hansen PA PA [facility] Shade Kandice mr Mackenzie Palmer RN RN hb Uri Miller RN RN mg2 Tanesha, Ruby 1 Corrections: (The following items were deleted from the chart) 12:22 12:21 LMP N/A - Post-menopause hb hb
--- NOTE | 2019-07-05 14:58 | EDPHYS ---
Physician Documentation [facility] Name: Bárbara Beebe Age: 53 yrs Sex: Female : 1965 Arrival Date: 07/05/2019 Time: 12:17 Bed 23 Private MD: ED Physician Kamari Salvador HPI: 07/05 13:30 This 53 yrs old Female presents to ER via Ambulatory with complaints of Back jmm Pain. 13:30 The patient presents with pain that is acute. Onset: The symptoms/episode jmm began/occurred gradually, 2 day(s) ago. The pain does not radiate. Associated signs and symptoms: Pertinent negatives: abdominal pain, fever, hematuria, incontinence, nausea, numbness, vomiting, weakness. Patient complains of right lower back pain which began 2 days ago. Patient denies known injury but states she has been lifting her grandson. Denies radiation of pain or weakness. . 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 - Social history:: Smoking status: Patient uses tobacco products, smokes one-half pack cigarettes per day. - Ebola Screening: : No symptoms or risks identified at this time. ROS: 13:30 Constitutional: Negative for fever, chills, and weight loss, Cardiovascular: Negative jmm for chest pain, palpitations, and edema, Respiratory: Negative for shortness of breath, cough, wheezing, and pleuritic chest pain, Abdomen/GI: Negative for abdominal pain, nausea, vomiting, diarrhea, and constipation. 13:30 : Negative for injury, bleeding, discharge, and swelling. 13:30 Back: Positive for pain at rest, pain with movement. 13:30 Neuro: Negative for weakness. 13:30 All other systems are negative. Exam: 13:30 Constitutional: This is a well developed, well nourished patient who is awake, alert, jmm and in no acute distress. Head/Face: atraumatic. Eyes: EOMI, no conjunctival erythema appreciated ENT: Moist Mucus Membranes Neck: Trachea midline, Supple Chest/axilla: Normal chest wall appearance and motion. Cardiovascular: Regular rate and rhythm. No edema appreciated Respiratory: Normal respirations, no respiratory distress appreciated Abdomen/GI: Non distended, soft 13:30 Back: pain, that is mild, of the right low back, vertebral tenderness, is not appreciated. 13:30 Skin: Appearance: Color: normal in color. 13:30 Neuro: Orientation: is normal, Mentation: is normal, Memory: is normal. 13:30 Psych: Behavior/mood is pleasant, cooperative. Vital Signs: 12:21 BP 179 / 88; Pulse 90; Resp 16; Temp 98.3; Pulse Ox 100% on R/A; Weight 68.04 kg; hb Height 5 ft. 2 in. (157.48 cm); Pain 6/10; 15:05 BP 148 / 80; Pulse 72; Resp 16; Temp 97.9(O); Pulse Ox 98% ; lt1 12:21 Body Mass Index 27.44 (68.04 kg, 157.48 cm) hb MDM: 13:06 Patient medically screened. [facility] 14:54 Data reviewed: vital signs, nurses notes. Counseling: I had a detailed discussion with sajan the patient and/or guardian regarding: the historical points, exam findings, and any diagnostic results supporting the discharge/admit diagnosis, lab results, the need for outpatient follow up, to return to the emergency department if symptoms worsen or persist or if there are any questions or concerns that arise at home. ED course: Pain decreased in the ED. Patient given strict return precautions. patient understood and agrees with the plan of care. . 07/05 13:33 Order name: Urine Dipstick--Ancillary (enter results) bd 07/05 13:51 Order name: Urine Dipstick-Ancillary; Complete Time: 13:54 EDMS 07/05 13:06 Order name: Urine Dipstick-Ancillary (obtain specimen); Complete Time: 13:27 [facility] Administered Medications: 13:40 Drug: Valium 5 mg Route: PO; mg2 15:01 Follow up: Response: No adverse reaction; Marked relief of symptoms mg2 13:41 Drug: [place] 5 mg-325 mg 1 tabs Route: PO; mg2 15:01 Follow up: Response: No adverse reaction; Marked relief of symptoms mg2 13:57 Drug: Decadron 10 mg Route: IM; Site: left gluteus; mg2 15:01 Follow up: Response: No adverse reaction; Marked relief of symptoms mg2 Disposition: 14:54 Chart complete. [facility] 15:24 Co-signature as Attending Physician, Kamari Salvador MD I agree with the assessment and vanna plan of care. Disposition: 07/05/19 14:56 Discharged to Home. Impression: Low back pain. - Condition is Stable. - Discharge Instructions: Back Pain, Adult. - Prescriptions for Prednisone 20 mg Oral Tablet - take 3 tablet by ORAL route once daily for 5 days; 15 tablet. Zanaflex 4 mg Oral Tablet - take 1 tablet by ORAL route every 8 hours As needed; 20 tablet. Tramadol 50 mg Oral Tablet - take 1 tablet by ORAL route every 8 hours as needed; 12 tablet. - Medication Reconciliation Form, Thank You Letter, Antibiotic Education, Prescription Opioid Use form. - Follow up: Private Physician; When: 2 - 3 days; Reason: Recheck today's complaints, Continuance of care, Re-evaluation by your physician. Signatures: Dispatcher [employer] EDKamari Gilliam MD MD cha Mickail, Joel, PA PA [facility] Mackenzie Palmer, FRANKI RN Uri Miller RN RN mg2 Corrections: (The following items were deleted from the chart) 15:12 14:56 07/05/2019 14:56 Discharged to Home. Impression: Low back pain. Condition is mg2 Stable. Forms are Medication Reconciliation Form, Thank You Letter, Antibiotic Education, Prescription Opioid Use. Follow up: Private Physician; When: 2 - 3 days; Reason: Recheck today's complaints, Continuance of care, Re-evaluation by your physician. wilfrido
[2019-07-05 15:37] VITALS: BP 148/80; TEMP 97.9; O2SAT 98
== END 2019-07-05 15:12 | disposition home or self-care (01) ==
LOC: ER 12:13
DX: M54.5 Low back pain (principal); I10 Essential (primary) hypertension; F17.210 Nicotine dependence, cigarettes, uncomplicated
CPT/HCPCS: 81003; 96372; 99283; J1100

== ENCOUNTER 2019-08-01 19:10 | Emergency (ER) | payer SELFPAY ==
--- OUTSIDE RECORDS SUMMARY | 2019-08-01 19:13 | XMS REPORT ---
:1965 Author Organization [facility] Address [address] [place] [address] Care Team Providers Name Role Phone [facility] Primary Care Provider Unavailable Problems This patient has no known problems. Allergies, Adverse Reactions, Alerts This patient has no known allergies or adverse reactions. Medications This patient has no known medications. Encounters Start End Encounter Admission Attending Care Care Encounter Date/Time Date/Time Type Type Clinicians Facility Department ID 2017-03-26 2017-03-26 Emergency [facility] [id number] 14:55:00 14:55:00 2017-03-07 2017-03-07 Emergency [facility] [id number] 17:01:00 17:01:00 2017-02-22 2017-02-22 Emergency [facility] [id number] 11:40:00 11:40:00 Results Test Description Test Time [...] 21-73 /LPF 0-20 Urinalysis with Culture, if [id number] 16:19:42 Test Item Value Reference Range Comments [...] Result created by rule Micro Ind?) GL_SET_UA_MICRO_IND [id number] 16:13:11 Test Item Value Reference Range Comments Amylase Level (test code=Amylase Level) 53 IntlUnit/L 25-115 Comprehensive Metabolic [id number] 16:13:11 Test Item Value Reference Range Comments [...] (test code=AST) 20 IntlUnit/L 15-37 Comprehensive Metabolic [id number] 16:13:11 Test Item Value Reference Range Comments [...] code=eGFR AA) >60 mL/min/1.73 m2 Comprehensive Metabolic [id number] 16:13:11 Test Item Value Reference Range Comments [...] (test code=eGFR Non-AA) >60 mL/min/1.73 m2 Automated [id number] 16:12:15 Test Item Value Reference Range Comments Neutro Auto (test code=Neutro Auto) 55.4 % Lymph Auto (test code=Lymph Auto) 36.3 % [place] Auto (test code=[place] Auto) 5.5 % Eos, Auto (test code=Eos, Auto) 1.9 % Basophil Auto (test code=Basophil Auto) 0.9 % Neutro Absolute (test code=Neutro Absolute) 4.9 x10 2.7-7.3 Lymph Absolute (test code=Lymph Absolute) 3.2 x10 0.8-3.5 [place] Absolute (test code=[place] Absolute) 0.5 x10 0.3-0.9 Eos Absolute (test code=Eos Absolute) 0.2 x10 0.0-0.3 Baso Absolute (test code=Baso Absolute) 0.1 x10 0.0-0.1 Complete Blood Count with [id number] 16:12:14 Test Item Value Reference Range Comments [...] Result created by Review) GL_SET_SLIDE_REVIEW_AUTO Comprehensive Metabolic [id number] 14:21:14 Test Item Value Reference Range Comments [...] (test code=AST) 22 IntlUnit/L 15-37 Comprehensive Metabolic [id number] 14:21:14 Test Item Value Reference Range Comments [...] code=eGFR AA) >60 mL/min/1.73 m2 Comprehensive Metabolic [id number] 14:21:14 Test Item Value Reference Range Comments [...] Non-AA) >60 mL/min/1.73 m2 Pro B Natriuretic [id number] 14:05:15 Test Item Value Reference Range Comments NT-proBNP (test 6 pg/mL 0-125 < 300 pg/ml - heart failure code=NT-proBNP) unlikelyAge less than 50 years, > 450 pg/ml - heart failure lilkelyAge 50 - 75 years, > 900 pg/ml - heart failure likelyAge greater than 75 years, > 1800 pg/ml - heart failure likely Complete Blood Count with [id number] 13:59:12 Test Item Value Reference Range Comments [...] Auto Result created by Review) GL_SET_SLIDE_REVIEW_AUTO Automated Vnxtbbqpddlf2888-60-15 13:59:12 Test Item Value Reference Range Comments Neutro Auto (test code=Neutro Auto) 68.5 % Lymph Auto (test code=Lymph Auto) 24.5 % [place] Auto (test code=[place] Auto) 5.6 % Eos, Auto (test code=Eos, Auto) 1.0 % Basophil Auto (test code=Basophil Auto) 0.4 % Neutro Absolute (test code=Neutro Absolute) 8.2 x10 2.7-7.3 Lymph Absolute (test code=Lymph Absolute) 2.9 x10 0.8-3.5 [place] Absolute (test code=[place] Absolute) 0.7 x10 0.3-0.9 Eos Absolute (test code=Eos Absolute) 0.1 x10 0.0-0.3 Baso Absolute (test code=Baso Absolute) 0.0 x10 0.0-0.1 XR Chest 2 [id number] 13:41:47Patient: KEKE HAYNES Date/Time02/24/201913:18 CDTReason for ExamShortness [...] (Electronic Signature): 02/24/2019 1:41 pmXR Chest 2 [id number] 10:31:38Patient: KEKE HAYNES Date/Time10/06/2018 10:23 CDTReason for ExamCoughReportXR CHEST 2 VIEWSDIAGNOSIS: Cough and chest painThe heart, lungs and bony thorax are unremarkable and unchanged since 09/22/2018. Hyperinflation suggesting early COPD.IMPRESSION: No active disease and no change since 2018. Final Dictated by: MD Denton Michael JackDictjacob DT/TM: 10:30 amSigned by: MD Denton Michael JackSigned (Electronic Signature): 10/06/2018 10:31 amXR Chest 2 [id number] 14:38:49Patient: KEKE HAYNES Date/ Time09/22/201814:05 CSTReason for [...] 09/22/2018 2:38 pmXR Ankle Complete 3+ Views [id number] 07:53:52Patient: KEKE HAYNES Date/Time09/04/2018 22:40 CSTReason for [...] 7: 53 amXR Foot Complete 3+ Views [id number] 07:53:39Patient: KEKE HAYNES Date/Time09/04/2018 22: 40 CSTReason [...] 2018 7:53 amCT Abdomen and Pelvis w/o [id number] 14:15:18Patient: KEKE HAYNES Date/ Time07/09/2018 13:45 CSTReason [...] Leary Craig ASigned ( Electronic Signature): 07/09/2018 2:[id number] 18:24:00 Test Item Value Reference Range Comments [...] 15 /LPF BACTERIA (test code=BACTERIA) NEGATIVE NONE [id number] 18:16:00 Test Item Value Reference Range Comments SODIUM (test code=NA) 143 MMOL/L 137-145 K+ (test code=KSERUM) 3.4 MMOL/L 3.5-5.1 PLEASE NOTE NEW REFERENCE RANGE(S) IN EFFECT EFFECTIVE 02/22/2010 - NEW ANALYZER (Threadflip 5600) CHLORIDE (test code=CL) 108 MMOL/L 98-107 CO2 (test code=CO2) 30 MMOL/L 22-30 BUN (test code=BUN) 9 MG/DL 7-17 CREA (test code=CREA) 0.5 MG/DL 0.7-1.2 GLUCOSE (test 98 MG/DL 70-99 Fasting glucose normal code=GLUCOSE) <100 MG/DL- [employer] recommendation CALCIUM (test 9.7 MG/DL 8.4-10.2 code=CABLOOD) TOTPROT (test 7.2 G/DL 6.3-8.2 code=TOTPROT) ALBUMIN (test 4.5 G/DL 3.5-5.0 code=ALBSERUM) BILITOT (test 0.3 MG/DL 0.2-1.3 code=BILITOT) AST (test code=AST) 27 U/L 15-46 PHOSALK (test 80 U/L 38-126 code=PHOSALK) ALT (test code=ALT) 33 U/L 13-69 GFR (test code=GFR) 137 mL/min/1.73m2 A GFR of >90 mL/min/1.73m2 is considered normal. [id number] 18:16:00 Test Item Value Reference Range Comments LIPASE (test code=LIPA) 95 U/L 23-300 [id number] 18:07:00 Test Item Value Reference Range Comments [...] (test code=NEUT) 3.5 K/UL 1.2-7.2 OCCULT BLOOD, [id number] 06:35:00 Test Item Value Reference Range Comments OCCULT BLOOD FECES (test code=OCCBLFEC) NEGATIVE NEGATIVE LOT# CRD (test code=LOT# CRD) 34843 EXP CRD (test code=EXP CRD) 10-20 LOT# DVL (test code=LOT# DVL) 34687 EXP DVL (test code=EXP DVL) 7-21 INT QC (test code=INT QC) PASSED [id number] 00:14:00 Test Item Value Reference Range Comments SODIUM (test code=NA) 143 MMOL/L 137-145 K+ (test code=KSERUM) 4.5 MMOL/L 3.5-5.1 PLEASE NOTE NEW REFERENCE RANGE(S) IN EFFECT EFFECTIVE 02/22/2010 - NEW ANALYZER (Threadflip 5600) CHLORIDE (test code=CL) 108 MMOL/L 98-107 CO2 (test code=CO2) 24 MMOL/L 22-30 BUN (test code=BUN) 12 MG/DL 7-17 CREA (test code=CREA) 0.6 MG/DL 0.7-1.2 GLUCOSE (test 95 MG/DL 70-99 Fasting glucose normal code=GLUCOSE) <100 MG/DL- [employer] recommendation CALCIUM (test 9.8 MG/DL 8.4-10.2 code=CABLOOD) TOTPROT (test 6.8 G/DL 6.3-8.2 code=TOTPROT) ALBUMIN (test 4.2 G/DL 3.5-5.0 code=ALBSERUM) BILITOT (test 0.2 MG/DL 0.2-1.3 code=BILITOT) AST (test code=AST) 23 U/L 15-46 PHOSALK (test 87 U/L 38-126 code=PHOSALK) ALT (test code=ALT) 61 U/L 13-69 GFR (test code=GFR) 111 mL/min/1.73m2 A GFR of >90 mL/min/1.73m2 is considered normal. [id number] 00:14:00 Test Item Value Reference Range Comments LIPASE (test code=LIPA) 134 U/L 23-300 ABDOMEN 2 [id number] 21:18:[address] [id number] IMAGING REPORTPatient Name: Amaris HAYNES of Service: [id number]: 52 Sex: F Order #: [id number] [facility] 1965 [facility] Number: [id number] Record Number: [id number] Hospital Number: [id number] Physician: YANNA HAROOrdering Physician: Mallika MAY.History: Abdomen pain.Technique: 3 supine and upright abdominal projections were obtained andreviewed.Findings:There is no specific acute appearing abdominal abnormality.There is no evidence to suggest obstruction or free air.The osseous structures appear intact. There is rotatory dextroscoliosis ofthe lumbar spine.Impression:No specific acute appearing abdominal abnormalities.Electronically Signed By: Hao Cole M.D., 2017 9:16 PMLegally authenticated by CLARA Talley 2018-04-04 21:16: [id number] 17:07:00 Test Item Value Reference Range Comments [...] ABS NEUT (test code=NEUT) 5.6 K/UL 1.2-7.2 [id number] 17:06:00 Test Item Value Reference Range Comments [...] 1.000-1.025 UAMICRO (test code=UAMICRO) NO CT ABDOMEN/PELVIS [id number] 16:28:[address] [id number] IMAGING REPORTPatient Name : Amaris HAYNES of Service: [id number]: 52 Sex: F Order #: [id number] [facility] 1965 [facility] Number: [id number] Record Number: [id number] Hospital Number: [id number] Physician: YANNA HAROOrdering Physician: DANETTE CLARK ABDOMEN/PELVIS [...] 4:25 PMLegally authenticated by GEORGIA WISEMAN 2018-04-01 16:25:[id number] 14:29:00 Test Item Value Reference Range Comments BLOOD TYPE (test code=TYPE) O Rh Positive ANTIBODY SCREEN (test code=SCREEN) NEGATIVE NEGATIVE PROTHROMBIN TIME WITH [id number] 14:13:00 Test Item Value Reference Range Comments PROTHROMBIN TIME (test 12.5 SECONDS 12.0-14.6 INR Usual Range=2 to 3 for code=PT) prevention of deep vein thrombosis (DVT) INR (test code=INR) 0.9 [id number] 14:13:00 Test Item Value Reference Range Comments PTT (test code=PTT) 37.8 SECONDS 24.4-36.3 HEPARIN THERAPEUTIC RANGE 57-92 SECONDS [id number] 14:00:00 Test Item Value Reference Range Comments SODIUM (test code=NA) 140 MMOL/L 137-145 K+ (test code=KSERUM) 4.3 MMOL/L 3.5-5.1 PLEASE NOTE NEW REFERENCE RANGE(S) IN EFFECT EFFECTIVE 02/22/2010 - NEW ANALYZER (Threadflip 5600) CHLORIDE (test code=CL) 103 MMOL/L 98-107 CO2 (test code=CO2) 29 MMOL/L 22-30 BUN (test code=BUN) 7 MG/DL 7-17 CREA (test code=CREA) 0.5 MG/DL 0.7-1.2 GLUCOSE (test 100 MG/DL 70-99 Fasting glucose normal code=GLUCOSE) <100 MG/DL- [employer] recommendation CALCIUM (test 9.5 MG/DL 8.4-10.2 code=CABLOOD) TOTPROT (test 6.6 G/DL 6.3-8.2 code=TOTPROT) ALBUMIN (test 4.1 G/DL 3.5-5.0 code=ALBSERUM) BILITOT (test 0.4 MG/DL 0.2-1.3 code=BILITOT) AST (test code=AST) 72 U/L 15-46 PHOSALK (test 117 U/L 38-126 code=PHOSALK) ALT (test code=ALT) 139 U/L 13-69 GFR (test code=GFR) 137 mL/min/1.73m2 A GFR of >90 mL/min/1.73m2 is considered normal. [id number] 14:00:00 Test Item Value Reference Range Comments LIPASE (test code=LIPA) 40 U/L 23-300 [id number] 13:51:00 Test Item Value Reference Range Comments [...] ABS NEUT (test code=NEUT) 8.8 K/UL 1.2-7.2 [id number] 13:22:00 Test Item Value Reference Range Comments [...] 1.000-1.025 UAMICRO (test code=UAMICRO) NO SPINE LUMBAR [id number] 13:32:[address] [id number] IMAGING REPORTPatient Name: DALLAS Amaris of Service: [id number]: 51 Sex: F Order #: [id number] [facility]: 1965 X-Ray Number: [id number] Record Number: [id number] Hospital Number: [id number] Physician: MICHELLE YEOrdering Physician: LAURENCE HONG SPINE 5 VIEWS:CLINICALHISTORY: Back pain radiates [...] PMLegally authenticated by JENNIFER Daniels 2017-10-16 13:29 :[id number] 12:33:00 Test Item Value Reference Range Comments [...] 25 /LPF BACTERIA (test code=BACTERIA) NEGATIVE NONE 63781& [id number] 06:46:50CHEST 2 VIEWREASON FOR STUDY: COPD-Cough- SOBFINDINGS:The heart and mediastinum are within normal limits. Minor linearscarring or atelectasis is noted involving the right infrahilar region.Lungs appear slightly hyperinflated. Bony structures appear intact. . No other significant findings. IMPRESSION: Minor linear scarring or atelectasis involving the right infrahilarregion. Chest is otherwise clear.
[2019-08-01] MEDS ORDERED: IPRATROPIUM BROM 0.5MG/2.5ML ONE (20:01)
[2019-08-01] MEDS ORDERED: ALBUTEROL 2.5 MG/3 ML NEB SOL ONE (20:01)
[2019-08-01] MEDS ORDERED: predniSONE 20 MG TAB ONE (20:01)
--- NOTE | 2019-08-01 20:31 | RAD REPORT ---
EXAM DESCRIPTION: RAD - Chest Pa And Lat (2 Views) - 08/01/2019 7:48 pm CLINICAL HISTORY: SOB Chest pain. COMPARISON: No comparisons FINDINGS: Mild reticular opacities are present in both lungs may indicate asthma or interstitial pne umonitis/ bronchitis. No focal infiltrate typical of pneumonia seen. The heart is normal in size. No displaced fractures.
[2019-08-01] MEDS ORDERED: LEVALBUTEROL 0.63 MG/3 ML NEB ONE (21:46)
--- NOTE | 2019-08-01 22:29 | ER ---
Nurse's Notes [facility] Name: Bárbara Beebe Age: 53 yrs Sex: Female : 1965 Arrival Date: 08/01/2019 Time: 19:11 Bed 20 Private MD: Diagnosis: Acute sinusitis;Bronchitis, not specified as acute or chronic Presentation: 08/01 19:13 Presenting complaint: Patient states: "I've had this for 3 weeks it just keeps getting aj1 worse, I've been doing albuterol at home every 4 hours, and I have kind of an infection taste in my mouth and it just feels like I can't do it anymore" Reports subjective fever, cough, nasal congestion, body aches. Transition of care: patient was not received from another setting of care. Onset of symptoms was August 01, 2019. Risk Assessment: Do you want to hurt yourself or someone else? Patient reports no desire to harm self or others. Initial Sepsis Screen: Does the patient meet any 2 criteria? HR > 90 bpm. No. Patient's initial sepsis screen is negative. Does the patient have a suspected source of infection? Yes: Productive cough/pneumonia. Care prior to arrival: None. 19:13 Method Of Arrival: Ambulatory aj1 19:13 Acuity: ANGELA 3 aj1 Triage Assessment: 19:15 General: Appears in no apparent distress. uncomfortable, Behavior is calm, cooperative, aj1 appropriate for age. Pain: Denies pain. EENT: Reports nasal congestion nasal discharge. Neuro: Level of Consciousness is awake, alert, obeys commands. Cardiovascular: Patient's skin is warm and dry. Respiratory: Reports shortness of breath Airway is patent Respiratory effort is even, unlabored, Respiratory pattern is regular, symmetrical, tachypnea Onset: The symptoms/episode began/occurred 3 weeks ago, the patient has moderate shortness of breath. TUBE TURNER: 19:15 LMP N/A - Post-menopause aj1 Historical: - Allergies: 19:15 No Known Allergies; aj1 - PMHx: 19:15 Crohn's; Hypertension; COPD; aj1 - Immunization history:: Flu vaccine is not up to date. - Social history:: Smoking status: Patient uses tobacco products, denies chronic smoking, but will smoke occasionally. - Ebola Screening: : Patient denies travel to an Ebola-affected area in the 21 days before illness onset. Screenin:16 Abuse screen: Denies threats or abuse. Denies injuries from another. Nutritional wh screening: No deficits noted. Tuberculosis screening: No symptoms or risk factors identified. Fall Risk None identified. Assessment: 20:13 General: Appears in no apparent distress. Behavior is calm, cooperative, appropriate wh for age. Pain: Denies pain. Neuro: Level of Consciousness is awake, alert, obeys commands, Oriented to person, place, time, situation, Appropriate for age. Cardiovascular: Heart tones S1 S2 Rhythm is regular. Respiratory: Airway is patent Respiratory effort is even, unlabored, Respiratory pattern is regular, symmetrical, Breath sounds with wheezes. GI: Abdomen is flat, non-distended. : No signs and/or symptoms were reported regarding the genitourinary system. EENT: Throat is pink. Derm: Skin is intact, is healthy with good turgor, Skin is pink, warm \\T\\ dry. normal. Musculoskeletal: Circulation, motion, and sensation intact. 21:15 Reassessment: Patient appears in no apparent distress at this time. No changes from previously documented assessment. Patient and/or family updated on plan of care and expected duration. Pain level reassessed. Patient is alert, oriented x 3, equal unlabored respirations, skin warm/dry/pink. 22:41 Reassessment: Patient appears in no apparent distress at this time. No changes from previously documented assessment. Patient and/or family updated on plan of care and expected duration. Pain level reassessed. Patient is alert, oriented x 3, equal unlabored respirations, skin warm/dry/pink. Patient denies pain at this time. Patient states feeling better. Patient states symptoms have improved. Vital Signs: 19:15 BP 159 / 104; Pulse 98; Resp 24; Temp 98.4; Pulse Ox 98% on R/A; Weight 68.04 kg (R); aj1 Height 5 ft. 2 in. (157.48 cm) (R); Pain 0/10; 20:18 BP 133 / 76; Pulse 85; Resp 18; Pulse Ox 98% on R/A; wh 21:15 BP 127 / 79; Pulse 95; Resp 18; Pulse Ox 96% on R/A; wh 22:41 BP 132 / 62; Pulse 82; Resp 18; Pulse Ox 95% on R/A; wh 19:15 Body Mass Index 27.44 (68.04 kg, 157.48 cm) [facility] ED Course: 19:11 Patient arrived in ED. jg7 19:15 Triage completed. aj1 19:15 Arm band placed on Patient placed in an exam room. aj1 19:19 Salo Golden NP is PHCP. pm1 19:19 Arnulfo Jackson MD is Attending Physician. pm1 19:39 Hoa Cuevas is Primary Nurse. 19:48 Chest Pa And Lat (2 Views) XRAY In Process Unspecified. EDMS 20:16 Patient has correct armband on for positive identification. Bed in low position. Call light in reach. Side rails up X 1. Pulse ox on. NIBP on. 22:42 No provider procedures requiring assistance completed. Patient did not have IV access during this emergency room visit. Administered Medications: 20:03 Drug: Albuterol - atroVENT (3:1) (2.5 mg - 0.5 mg) 3 ml Route: Nebulizer; 21:48 Follow up: Response: No adverse reaction 21:49 Follow up: Response: No adverse reaction; Wheezing diminished 20:03 Drug: predniSONE 60 mg Route: PO; 21:49 Follow up: Response: No adverse reaction 21:48 Drug: Xopenex 1.25 mg Route: Inhalation; 22:43 Follow up: Response: No adverse reaction; Wheezing diminished Outcome: 22:28 Discharge ordered by MD. pm1 22:42 Discharged to home ambulatory. 22:42 Condition: stable 22:42 Discharge instructions given to patient, Instructed on discharge instructions, follow up and referral plans. medication usage, POC Demonstrated understanding of instructions, follow-up care, medications, POC Prescriptions given X 4. 22:43 Patient left the ED. Signatures: Dispatcher [employer] EDOK Selma Cole RN RN aj Salo Golden, MARISOL CARDIO CLINICIAN pm1 Hoa Cuevas Gala Jackson jg7
--- NOTE | 2019-08-01 22:29 | EDPHYS ---
Physician Documentation [facility] Name: Bárbara Beebe Age: 53 yrs Sex: Female : 1965 Arrival Date: 08/01/2019 Time: 19:11 Bed 20 Private MD: ED Physician Arnulfo Jackson HPI: 08/01 19:45 This 53 yrs old Female presents to ER via Ambulatory with complaints of pm1 Breathing Difficulty. 19:45 The patient has shortness of breath at rest. Onset: The symptoms/episode began/occurred pm1 3 week(s) ago. Duration: The symptoms are continuous. The patient's shortness of breath is aggravated by New environment, just moved to the area. House scent fresheners , is alleviated by nothing. Associated signs and symptoms: Pertinent positives: productive cough, Pertinent negatives: chest pain, fever. Severity of symptoms: in the emergency department the symptoms are worse. The patient has experienced similar episodes in the past, a few times. The patient has not recently seen a physician, just moved to the area. Patient reports sinus congestion, drainage, and post nasal drip for the past 3 weeks. Has been using breathing treatment without improvement. Feels that she might need some steroid treatment. 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 - Social history:: Smoking status: Patient uses tobacco products, denies chronic smoking, but will smoke occasionally. - Ebola Screening: : Patient denies travel to an Ebola-affected area in the 21 days before illness onset. ROS: 19:45 Constitutional: Negative for fever, chills, and weight loss, Eyes: Negative for injury, pm1 pain, redness, and discharge, Neck: Negative for injury, pain, and swelling, Cardiovascular: Negative for chest pain, palpitations, and edema. 19:45 Abdomen/GI: Negative for abdominal pain, nausea, vomiting, diarrhea, and constipation, Back: Negative for injury and pain, MS/Extremity: Negative for injury and deformity, Skin: Negative for injury, rash, and discoloration, Neuro: Negative for headache, weakness, numbness, tingling, and seizure. 19:45 ENT: Positive for nasal discharge, sinus congestion, sinus pain, Negative for drainage from ear(s), ear pain. 19:45 Respiratory: Positive for cough, shortness of breath, wheezing. Exam: 19:45 Constitutional: This is a well developed, well nourished patient who is awake, alert, pm1 and in no acute distress. Head/Face: Normocephalic, atraumatic. Neck: Trachea midline, no thyromegaly or masses palpated, and no cervical lymphadenopathy. Supple, full range of motion without nuchal rigidity, or vertebral point tenderness. No Meningismus. Chest/axilla: Normal chest wall appearance and motion. Nontender with no deformity. No lesions are appreciated. Cardiovascular: Regular rate and rhythm with a normal S1 and S2. No gallops, murmurs, or rubs. Normal PMI, no JVD. No pulse deficits. 19:45 Abdomen/GI: Soft, non-tender, with normal bowel sounds. No distension or tympany. No guarding or rebound. No evidence of tenderness throughout. Back: No spinal tenderness. No costovertebral tenderness. Full range of motion. Skin: Warm, dry with normal turgor. Normal color with no rashes, no lesions, and no evidence of cellulitis. MS/ Extremity: Pulses equal, no cyanosis. Neurovascular intact. Full, normal range of motion. 19:45 Respiratory: the patient does not display signs of respiratory distress, Respirations: normal, Breath sounds: wheezing: is heard diffusely. 19:45 Neuro: Orientation: is normal, Motor: is normal, moves all fours. Vital Signs: 19:15 BP 159 / 104; Pulse 98; Resp 24; Temp 98.4; Pulse Ox 98% on R/A; Weight 68.04 kg (R); aj1 Height 5 ft. 2 in. (157.48 cm) (R); Pain 0/10; 20:18 BP 133 / 76; Pulse 85; Resp 18; Pulse Ox 98% on R/A; wh 21:15 BP 127 / 79; Pulse 95; Resp 18; Pulse Ox 96% on R/A; wh 22:41 BP 132 / 62; Pulse 82; Resp 18; Pulse Ox 95% on R/A; wh 19:15 Body Mass Index 27.44 (68.04 kg, 157.48 cm) aj1 MDM: 19:26 Patient medically screened. pm1 22:23 Data reviewed: vital signs. Data interpreted: Pulse oximetry: on room air is 98 %. pm1 Interpretation: normal. Counseling: I had a detailed discussion with the patient and/or guardian regarding: the historical points, exam findings, and any diagnostic results supporting the discharge/admit diagnosis, lab results, radiology results, the need for outpatient follow up, to return to the emergency department if symptoms worsen or persist or if there are any questions or concerns that arise at home. 22:23 ED course: Patient with sinus symptoms for 3 weeks and history of COPD. Patient's pm1 symptoms improved with breathing treatments and steroids. Therefore will discharge the patient home with abx and steroids. 08/01 19:31 Order name: Flu; Complete Time: 20:33 pm1 08/01 19:31 Order name: Strep; Complete Time: 20:33 pm1 08/01 19:31 Order name: Chest Pa And Lat (2 Views) XRAY; Complete Time: 20:33 pm1 08/01 20:18 Order name: Throat Culture EDMS Administered Medications: 20:03 Drug: Albuterol - atroVENT (3:1) (2.5 mg - 0.5 mg) 3 ml Route: Nebulizer; 21:48 Follow up: Response: No adverse reaction 21:49 Follow up: Response: No adverse reaction; Wheezing diminished 20:03 Drug: predniSONE 60 mg Route: PO; 21:49 Follow up: Response: No adverse reaction 21:48 Drug: Xopenex 1.25 mg Route: Inhalation; 22:43 Follow up: Response: No adverse reaction; Wheezing diminished Disposition: 08/02 07:04 Co-signature as Attending Physician, Arnulfo Jackson MD. rn Disposition: 08/01/19 22:28 Discharged to Home. Impression: Acute sinusitis, Bronchitis, not specified as acute or chronic. - Condition is Stable. - Discharge Instructions: Acute Bronchitis, Adult, Sinusitis, Adult. - Prescriptions for Xopenex 1.25 mg/3 mL Inhalation Solution for Nebulization - inhale 1 unit by NEBULIZATION route every 8 hours As needed; 1 box. Medrol (Remigio) 4 mg Oral Tablets, Dose Pack - take 1 tablet by ORAL route as directed - follow package instructions; 1 packet. Guaifenesin AC 10- 100 mg/5 mL Oral Liquid - take 10 milliliter by ORAL route every 4 hours As needed; 240 milliliter. Zithromax Z- Remigio 250 mg Oral Tablet - take 1 tablet by ORAL route as directed for 5 days Day 1 - take two (2) tablets one time. Day 2, 3, 4 , 5 take one (1) tablet once daily.; 6 tablet. - Medication Reconciliation Form, Thank You Letter, Antibiotic Education, Prescription Opioid Use form. - Follow up: Emergency Department; When: As needed; Reason: Worsening of condition. Follow up: Private Physician; When: 2 - 3 days; Reason: Recheck today's complaints, Continuance of care, Re-evaluation by your physician. - Problem is new. - Symptoms have improved. Signatures: Dispatcher [employer] EDMS Selma Cole RN RN aj1 Arnulfo Jackson MD MD rn Marinas, Patrick, PIGMENT FURNACE TENDER PIGMENT FURNACE TENDER pm1 [place] Corrections: (The following items were deleted from the chart) 08/01 22:43 22:28 08/01/2019 22:28 Discharged to Home. Impression: Acute sinusitis; Bronchitis, not wh specified as acute or chronic. Condition is Stable. Forms are Medication Reconciliation Form, Thank You Letter, Antibiotic Education, Prescription Opioid Use. Follow up: Emergency Department; When: As needed; Reason: Worsening of condition. Follow up: Private Physician; When: 2 - 3 days; Reason: Recheck today's complaints, Continuance of care, Re-evaluation by your physician. Problem is new. Symptoms have improved. pm1
[2019-08-01 22:55] VITALS: TEMP 98.4
[2019-08-01 23:00] VITALS: BP 132/62; O2SAT 95
== END 2019-08-01 22:43 | disposition home or self-care (01) ==
LOC: ER 19:10
DX: J40 Bronchitis, not specified as acute or chronic (principal); J01.90 Acute sinusitis, unspecified; I10 Essential (primary) hypertension; Z72.0 Tobacco use
CPT/HCPCS: 71046; 87070; 87081; 87804; 94640; 99284; J7512

== ENCOUNTER 2019-09-28 12:34 | Emergency (ER) | payer SELFPAY ==
--- OUTSIDE RECORDS SUMMARY | 2019-09-28 12:45 | XMS REPORT ---
:1965 Author Organization [facility] Address [address] [place] [address] Care Team Providers Name Role Phone [facility] Primary Care Provider Unavailable Problems This patient has no known problems. Allergies, Adverse Reactions, Alerts This patient has no known allergies or adverse reactions. Medications This patient has no known medications. Encounters Start End Encounter Admission Attending Care Care Encounter Date/Time Date/Time Type Type Clinicians Facility Department ID 2017-03-26 2017-03-26 Emergency [facility] [id number] 14:55:00 14:55:00 2017-03-07 2017-03-07 Emergency [facility] [id number] 17:01:00 17:01:00 2017-02-22 2017-02-22 Emergency [facility] [id number] 11:40:00 11:40:00 Results Test Description Test Time [...] 21-73 /LPF 0-20 Urinalysis with Culture, if [id number] 16:19:42 Test Item Value Reference Range Comments [...] Result created by rule Micro Ind?) GL_SET_UA_MICRO_IND [id number] 16:13:11 Test Item Value Reference Range Comments Amylase Level (test code=Amylase Level) 53 IntlUnit/L 25-115 Comprehensive Metabolic [id number] 16:13:11 Test Item Value Reference Range Comments [...] (test code=AST) 20 IntlUnit/L 15-37 Comprehensive Metabolic [id number] 16:13:11 Test Item Value Reference Range Comments [...] code=eGFR AA) >60 mL/min/1.73 m2 Comprehensive Metabolic [id number] 16:13:11 Test Item Value Reference Range Comments [...] (test code=eGFR Non-AA) >60 mL/min/1.73 m2 Automated [id number] 16:12:15 Test Item Value Reference Range Comments Neutro Auto (test code=Neutro Auto) 55.4 % Lymph Auto (test code=Lymph Auto) 36.3 % [place] Auto (test code=[place] Auto) 5.5 % Eos, Auto (test code=Eos, Auto) 1.9 % Basophil Auto (test code=Basophil Auto) 0.9 % Neutro Absolute (test code=Neutro Absolute) 4.9 x10 2.7-7.3 Lymph Absolute (test code=Lymph Absolute) 3.2 x10 0.8-3.5 [place] Absolute (test code=[place] Absolute) 0.5 x10 0.3-0.9 Eos Absolute (test code=Eos Absolute) 0.2 x10 0.0-0.3 Baso Absolute (test code=Baso Absolute) 0.1 x10 0.0-0.1 Complete Blood Count with [id number] 16:12:14 Test Item Value Reference Range Comments [...] Result created by Review) GL_SET_SLIDE_REVIEW_AUTO Comprehensive Metabolic [id number] 14:21:14 Test Item Value Reference Range Comments [...] (test code=AST) 22 IntlUnit/L 15-37 Comprehensive Metabolic [id number] 14:21:14 Test Item Value Reference Range Comments [...] code=eGFR AA) >60 mL/min/1.73 m2 Comprehensive Metabolic [id number] 14:21:14 Test Item Value Reference Range Comments [...] Non-AA) >60 mL/min/1.73 m2 Pro B Natriuretic [id number] 14:05:15 Test Item Value Reference Range Comments NT-proBNP (test 6 pg/mL 0-125 < 300 pg/ml - heart failure code=NT-proBNP) unlikelyAge less than 50 years, > 450 pg/ml - heart failure lilkelyAge 50 - 75 years, > 900 pg/ml - heart failure likelyAge greater than 75 years, > 1800 pg/ml - heart failure likely Complete Blood Count with [id number] 13:59:12 Test Item Value Reference Range Comments [...] Auto Result created by Review) GL_SET_SLIDE_REVIEW_AUTO Automated [id number] 13:59:12 Test Item Value Reference Range Comments Neutro Auto (test code=Neutro Auto) 68.5 % Lymph Auto (test code=Lymph Auto) 24.5 % Raleigh Auto (test code=R[place] Auto) 5.6 % Eos, Auto (test code=Eos, Auto) 1.0 % Basophil Auto (test code=Basophil Auto) 0.4 % Neutro Absolute (test code=Neutro Absolute) 8.2 x10 2.7-7.3 Lymph Absolute (test code=Lymph Absolute) 2.9 x10 0.8-3.5 [place] Absolute (test code=[place] Absolute) 0.7 x10 0.3-0.9 Eos Absolute (test code=Eos Absolute) 0.1 x10 0.0-0.3 Baso Absolute (test code=Baso Absolute) 0.0 x10 0.0-0.1 XR Chest 2 [id number] 13:41:47Patient: KEKE HAYNES Date/Time02/24/201913:18 CDTReason for ExamShortness [...] (Electronic Signature): 02/24/2019 1:41 pmXR Chest 2 [id number] 10:31:38Patient: KEKE HAYNES Date/Time10/06/2018 10:23 CDTReason for ExamCoughReportXR CHEST 2 VIEWSDIAGNOSIS: Cough and chest painThe heart, lungs and bony thorax are unremarkable and unchanged since 09/22/2018. Hyperinflation suggesting early COPD.IMPRESSION: No active disease and no change since 2018. Final Dictated by: MD Denton Michael JackDictjacob DT/TM: 10:30 amSigned by: MD Denton Michael JackSigned (Electronic Signature): 10/06/2018 10:31 amXR Chest 2 [id number] 14:38:49Patient: KEKE HAYNES Date/ Time09/22/201814:05 CSTReason for [...] 09/22/2018 2:38 pmXR Ankle Complete 3+ Views [id number] 07:53:52Patient: KEKE HAYNES Date/Time09/04/2018 22:40 CSTReason for [...] 7: 53 amXR Foot Complete 3+ Views [id number] 07:53:39Patient: KEKE HAYNES Date/Time09/04/2018 22: 40 CSTReason [...] 2018 7:53 amCT Abdomen and Pelvis w/o [id number] 14:15:18Patient: KEKE HAYNES Date/ Time07/09/2018 13:45 CSTReason [...] Leary Craig ASigned ( Electronic Signature): 07/09/2018 2:[id number] 18:24:00 Test Item Value Reference Range Comments [...] 15 /LPF BACTERIA (test code=BACTERIA) NEGATIVE NONE [id number] 18:16:00 Test Item Value Reference Range Comments SODIUM (test code=NA) 143 MMOL/L 137-145 K+ (test code=KSERUM) 3.4 MMOL/L 3.5-5.1 PLEASE NOTE NEW REFERENCE RANGE(S) IN EFFECT EFFECTIVE 02/22/2010 - NEW ANALYZER (GeneCapture 5600) CHLORIDE (test code=CL) 108 MMOL/L 98-107 CO2 (test code=CO2) 30 MMOL/L 22-30 BUN (test code=BUN) 9 MG/DL 7-17 CREA (test code=CREA) 0.5 MG/DL 0.7-1.2 GLUCOSE (test 98 MG/DL 70-99 Fasting glucose normal code=GLUCOSE) <100 MG/DL- [place] [employer] recommendation CALCIUM (test 9.7 MG/DL 8.4-10.2 code=CABLOOD) TOTPROT (test 7.2 G/DL 6.3-8.2 code=TOTPROT) ALBUMIN (test 4.5 G/DL 3.5-5.0 code=ALBSERUM) BILITOT (test 0.3 MG/DL 0.2-1.3 code=BILITOT) AST (test code=AST) 27 U/L 15-46 PHOSALK (test 80 U/L 38-126 code=PHOSALK) ALT (test code=ALT) 33 U/L 13-69 GFR (test code=GFR) 137 mL/min/1.73m2 A GFR of >90 mL/min/1.73m2 is considered normal. [id number] 18:16:00 Test Item Value Reference Range Comments LIPASE (test code=LIPA) 95 U/L 23-300 [id number] 18:07:00 Test Item Value Reference Range Comments [...] (test code=NEUT) 3.5 K/UL 1.2-7.2 OCCULT BLOOD, [id number] 06:35:00 Test Item Value Reference Range Comments OCCULT BLOOD FECES (test code=OCCBLFEC) NEGATIVE NEGATIVE LOT# CRD (test code=LOT# CRD) [id number] EXP CRD (test code=EXP CRD) 10-20 LOT# DVL (test code=LOT# DVL) [id number] EXP DVL (test code=EXP DVL) 7-21 INT QC (test code=INT QC) PASSED [id number] 00:14:00 Test Item Value Reference Range Comments SODIUM (test code=NA) 143 MMOL/L 137-145 K+ (test code=KSERUM) 4.5 MMOL/L 3.5-5.1 PLEASE NOTE NEW REFERENCE RANGE(S) IN EFFECT EFFECTIVE 02/22/2010 - NEW ANALYZER (GeneCapture 5600) CHLORIDE (test code=CL) 108 MMOL/L 98-107 CO2 (test code=CO2) 24 MMOL/L 22-30 BUN (test code=BUN) 12 MG/DL 7-17 CREA (test code=CREA) 0.6 MG/DL 0.7-1.2 GLUCOSE (test 95 MG/DL 70-99 Fasting glucose normal code=GLUCOSE) <100 MG/DL- [place] [employer] recommendation CALCIUM (test 9.8 MG/DL 8.4-10.2 code=CABLOOD) TOTPROT (test 6.8 G/DL 6.3-8.2 code=TOTPROT) ALBUMIN (test 4.2 G/DL 3.5-5.0 code=ALBSERUM) BILITOT (test 0.2 MG/DL 0.2-1.3 code=BILITOT) AST (test code=AST) 23 U/L 15-46 PHOSALK (test 87 U/L 38-126 code=PHOSALK) ALT (test code=ALT) 61 U/L 13-69 GFR (test code=GFR) 111 mL/min/1.73m2 A GFR of >90 mL/min/1.73m2 is considered normal. [id number] 00:14:00 Test Item Value Reference Range Comments LIPASE (test code=LIPA) 134 U/L 23-300 ABDOMEN 2 [id number] 21:18:[address] [id number] IMAGING REPORTPatient Name: Amaris HAYNES of Service: [id number]: 52 Sex: F Order #: [id number] [facility] 1965 [facility] Number: [id number] Record Number: [id number] Hospital Number: [id number] Physician: YANNA HAROOrdering Physician: Mallika MAY.History: Abdomen pain.Technique: 3 supine and upright abdominal projections were obtained andreviewed.Findings:There is no specific acute appearing abdominal abnormality.There is no evidence to suggest obstruction or free air.The osseous structures appear intact. There is rotatory dextroscoliosis ofthe lumbar spine.Impression:No specific acute appearing abdominal abnormalities.Electronically Signed By: Hao Cole M.D., 2017 9:16 PMLegally authenticated by CLARA Talley 2018-04-04 21:16: [id number] 17:07:00 Test Item Value Reference Range Comments [...] ABS NEUT (test code=NEUT) 5.6 K/UL 1.2-7.2 [id number] 17:06:00 Test Item Value Reference Range Comments [...] 1.000-1.025 UAMICRO (test code=UAMICRO) NO CT ABDOMEN/PELVIS [id number] 16:28:[address] [id number] IMAGING REPORTPatient Name : Amaris HAYNES of Service: [id number]: 52 Sex: F Order #: [id number] [facility] 1965 [facility] Number: [id number] Record Number: [id number] Hospital Number: [id number] Physician: YANNA HAROOrdering Physician: DANETTE CLARK ABDOMEN/PELVIS [...] 4:25 PMLegally authenticated by GEORGIA WISEMAN 2018-04-01 16:25:[id number] 14:29:00 Test Item Value Reference Range Comments BLOOD TYPE (test code=TYPE) O Rh Positive ANTIBODY SCREEN (test code=SCREEN) NEGATIVE NEGATIVE PROTHROMBIN TIME WITH [id number] 14:13:00 Test Item Value Reference Range Comments PROTHROMBIN TIME (test 12.5 SECONDS 12.0-14.6 INR Usual Range=2 to 3 for code=PT) prevention of deep vein thrombosis (DVT) INR (test code=INR) 0.9 [id number] 14:13:00 Test Item Value Reference Range Comments PTT (test code=PTT) 37.8 SECONDS 24.4-36.3 HEPARIN THERAPEUTIC RANGE 57-92 SECONDS [id number] 14:00:00 Test Item Value Reference Range Comments SODIUM (test code=NA) 140 MMOL/L 137-145 K+ (test code=KSERUM) 4.3 MMOL/L 3.5-5.1 PLEASE NOTE NEW REFERENCE RANGE(S) IN EFFECT EFFECTIVE 02/22/2010 - NEW ANALYZER (GeneCapture 5600) CHLORIDE (test code=CL) 103 MMOL/L 98-107 CO2 (test code=CO2) 29 MMOL/L 22-30 BUN (test code=BUN) 7 MG/DL 7-17 CREA (test code=CREA) 0.5 MG/DL 0.7-1.2 GLUCOSE (test 100 MG/DL 70-99 Fasting glucose normal code=GLUCOSE) <100 MG/DL- [place] [employer] recommendation CALCIUM (test 9.5 MG/DL 8.4-10.2 code=CABLOOD) TOTPROT (test 6.6 G/DL 6.3-8.2 code=TOTPROT) ALBUMIN (test 4.1 G/DL 3.5-5.0 code=ALBSERUM) BILITOT (test 0.4 MG/DL 0.2-1.3 code=BILITOT) AST (test code=AST) 72 U/L 15-46 PHOSALK (test 117 U/L 38-126 code=PHOSALK) ALT (test code=ALT) 139 U/L 13-69 GFR (test code=GFR) 137 mL/min/1.73m2 A GFR of >90 mL/min/1.73m2 is considered normal. [id number] 14:00:00 Test Item Value Reference Range Comments LIPASE (test code=LIPA) 40 U/L 23-300 [id number] 13:51:00 Test Item Value Reference Range Comments [...] ABS NEUT (test code=NEUT) 8.8 K/UL 1.2-7.2 [id number] 13:22:00 Test Item Value Reference Range Comments [...] 1.000-1.025 UAMICRO (test code=UAMICRO) NO SPINE LUMBAR [id number] 13:32:[address] [id number] IMAGING REPORTPatient Name: DALLAS Amaris of Service: [id number]: 51 Sex: F Order #: [id number] [facility]: 1965 X-Ray Number: [id number] Record Number: [id number] Hospital Number: [id number] Physician: MICHELLE YEOrdering Physician: LAURENCE HONG SPINE [...] PMLegally authenticated by JENNIFER Daniels 2017-10-16 13:29 :[id number] 12:33:00 Test Item Value Reference Range Comments [...] 25 /LPF BACTERIA (test code=BACTERIA) NEGATIVE NONE 84180& [id number] 06:46:50CHEST 2 VIEWREASON FOR STUDY: COPD-Cough- SOBFINDINGS:The heart and mediastinum are within normal limits. Minor linearscarring or atelectasis is noted involving the right infrahilar region.Lungs appear slightly hyperinflated. Bony structures appear intact. . No other significant findings. IMPRESSION: Minor linear scarring or atelectasis involving the right infrahilarregion. Chest is otherwise clear.
[2019-09-28] MEDS ORDERED: dexAMETHasone 10 MG/ML VIAL ONE (14:08)
[2019-09-28] MEDS ORDERED: KETOROLAC 30 MG/ML INJ ONE (14:08)
--- NOTE | 2019-09-28 14:17 | RAD REPORT ---
EXAM DESCRIPTION: RAD - Lumbar Spine 3 Views - 09/28/2019 2:09 pm CLINICAL HISTORY: Back pain FINDINGS: Mild scoliosis involves the thoracolumbar spine. No fracture or dislocation is seen. Mild spondylosis involves the lumbar spine. Bones appear osteoporotic
--- NOTE | 2019-09-28 15:02 | ER ---
Nurse's Notes [facility] Name: Bárbara Beebe Age: 53 yrs Sex: Female : 1965 Arrival Date: 09/28/2019 Time: 12:39 Bed 25 Private MD: Diagnosis: Low back pain;Rash and other nonspecific skin eruption;Sciatica, left side;Spondylolysis, lumbar region Presentation: 09/27 13:06 Chief complaint: Patient states: pain to L hip/ buttock area that began 2 weeks ago. ss Also reports rash in that same area. Coronavirus screen: The patient has NOT traveled to a country currently being monitored by the CDC within the last 14 days. Ebola Screen: Patient denies exposure to infectious person. Patient denies travel to an Ebola-affected area in the 21 days before illness onset. Initial Sepsis Screen: Does the patient meet any 2 criteria? No. Patient's initial sepsis screen is negative. Does the patient have a suspected source of infection? No. Patient's initial sepsis screen is negative. Risk Assessment: Do you want to hurt yourself or someone else? Patient reports no desire to harm self or others. 13:06 Method Of Arrival: Ambulatory ss 13:06 Acuity: ANGELA 4 ss 15:31 Onset of symptoms was September 14, 2019. 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 - Social history:: Smoking status: Patient reports the use of cigarette tobacco products, < 1/2 pppd. - Family history:: not pertinent. Screenin:13 Abuse screen: Denies threats or abuse. Nutritional screening: No deficits noted. ll1 Tuberculosis screening: No symptoms or risk factors identified. Fall Risk None identified. Total Gant Fall Scale indicates No Risk (0-24 pts). Assessment: 14:11 General: Appears uncomfortable, Behavior is calm, cooperative. Pain: Complains of pain ll1 in left low back. Neuro: Level of Consciousness is awake, alert, Oriented to person, place, time, situation, Ship'S Officer are equal bilaterally Moves all extremities. Full function Gait is steady, Speech is normal, Facial symmetry appears normal. Cardiovascular: No deficits noted. Respiratory: No deficits noted. Derm: Rash noted that is Reports rash to buttocks/groin area bilaterally. Musculoskeletal: Capillary refill < 3 seconds, Reports pain in left leg and left lower back. Vital Signs: 13:06 BP 167 / 93; Pulse 86; Resp 16; Temp 98.4(TE); Pulse Ox 99% on R/A; Weight 68.04 kg; Height 5 ft. 2 in. (157.48 cm); Pain 7/10; 15:13 BP 114 / 76; Pulse 78; Resp 16; Temp 98.4; Pulse Ox 99% ; Pain 7/10; ll1 13:06 Body Mass Index 27.44 (68.04 kg, 157.48 cm) ED Course: 12:39 Patient arrived in ED. rg4 13:09 Triage completed. 13:09 Arm band placed on right wrist. 13:42 Kamari Salvador MD is Attending Physician. [facility] 13:45 Le Taylor, FRANKI is Primary Nurse. ll1 14:09 Lumbar Spine (3 Views) XRAY In Process Unspecified. EDMS 14:14 Patient has correct armband on for positive identification. Bed in low position. Call ll1 light in reach. Side rails up X 1. 15:02 Maco Mazariegos MD is Referral Physician. [facility] 15:30 No provider procedures requiring assistance completed. Patient did not have IV access ll1 during this emergency room visit. Administered Medications: 14:19 Drug: Decadron 10 mg Route: IM; Site: right gluteus; ll1 15:33 Follow up: Response: No adverse reaction; Pain is unchanged, physician notified ll1 14:19 Drug: TORadol 60 mg Route: IM; Site: left gluteus; ll1 15:33 Follow up: Response: No adverse reaction; Pain is unchanged, physician notified ll1 Outcome: 15:02 Discharge ordered by . vanna 15:31 Discharged to home ambulatory. ll1 15:31 Condition: stable 15:31 Discharge instructions given to patient, Instructed on discharge instructions, follow up and referral plans. medication usage, Demonstrated understanding of instructions, follow-up care, medications. 15:33 Patient left the ED. ll1 Signatures: Dispatcher [employer] EDCA Kamari Salvador MD MD cha Smirch, Shelby, RN RN Jo Diego rg4 Le Taylor RN RN ll1 Corrections: (The following items were deleted from the chart) 13:10 13:06 Acuity: ANGELA 5 ss ss
--- NOTE | 2019-09-28 15:03 | EDPHYS ---
Physician Documentation [facility] Name: Bárbara Beebe Age: 53 yrs Sex: Female : 1965 Arrival Date: 09/28/2019 Time: 12:39 Bed 25 Private MD: SILVA Physician Kamari Salvador HPI: 09/27 13:53 This 53 yrs old Female presents to ER via Ambulatory with complaints of Back vanna Pain, Weakness. 13:53 The patient presents with pain that is acute, with no known mechanism of injury. The vanna symptoms are located in the low back, left low back. Onset: The symptoms/episode began/occurred 3 day(s) ago. The pain radiates to the left lower back, left gluteus renae and left leg. Associated signs and symptoms: The patient has no apparent associated signs or symptoms. The problem was sustained from unknown cause. Modifying factors: The patient symptoms are alleviated by remaining still, the patient symptoms are aggravated by movement. Severity of symptoms: At their worst the symptoms were moderate, in the emergency department the symptoms are unchanged. The patient has not experienced similar symptoms in the past. 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 - Social history:: Smoking status: Patient reports the use of cigarette tobacco products, < 1/2 pppd. - Family history:: not pertinent. ROS: 13:53 Constitutional: Negative for fever, chills, and weight loss, Eyes: Negative for injury, vanna pain, redness, and discharge, ENT: Negative for injury, pain, and discharge, Neck: Negative for injury, pain, and swelling, Cardiovascular: Negative for chest pain, palpitations, and edema, Respiratory: Negative for shortness of breath, cough, wheezing, and pleuritic chest pain, Abdomen/GI: Negative for abdominal pain, nausea, vomiting, diarrhea, and constipation, : Negative for injury, bleeding, discharge, and swelling, MS/Extremity: Negative for injury and deformity, Skin: Negative for injury, rash, and discoloration, Neuro: Negative for headache, weakness, numbness, tingling, and seizure, Psych: Negative for depression, anxiety, suicide ideation, homicidal ideation, and hallucinations, Allergy/Immunology: Negative for hives, rash, and allergies, Endocrine: Negative for neck swelling, polydipsia, polyuria, polyphagia, and marked weight changes, Hematologic/Lymphatic: Negative for swollen nodes, abnormal bleeding, and unusual bruising. 13:53 Back: Positive for decreased range of motion, pain at rest, pain with movement, radiated pain, of the left low back. Exam: 13:53 Constitutional: This is a well developed, well nourished patient who is awake, alert, vanna and in no acute distress. Head/Face: Normocephalic, atraumatic. Eyes: Pupils equal round and reactive to light, extra-ocular motions intact. Lids and lashes normal. Conjunctiva and sclera are non-icteric and not injected. Cornea within normal limits. Periorbital areas with no swelling, redness, or edema. ENT: Nares patent. No nasal discharge, no septal abnormalities noted. Tympanic membranes are normal and external auditory canals are clear. Oropharynx with no redness, swelling, or masses, exudates, or evidence of obstruction, uvula midline. Mucous membranes moist. Neck: Trachea midline, no thyromegaly or masses palpated, and no cervical lymphadenopathy. Supple, full range of motion without nuchal rigidity, or vertebral point tenderness. No Meningismus. Chest/axilla: Normal chest wall appearance and motion. Nontender with no deformity. No lesions are appreciated. Cardiovascular: Regular rate and rhythm with a normal S1 and S2. No gallops, murmurs, or rubs. Normal PMI, no JVD. No pulse deficits. Respiratory: Lungs have equal breath sounds bilaterally, clear to auscultation and percussion. No rales, rhonchi or wheezes noted. No increased work of breathing, no retractions or nasal flaring. Abdomen/GI: Soft, non-tender, with normal bowel sounds. No distension or tympany. No guarding or rebound. No evidence of tenderness throughout. Skin: Warm, dry with normal turgor. Normal color with no rashes, no lesions, and no evidence of cellulitis. MS/ Extremity: Pulses equal, no cyanosis. Neurovascular intact. Full, normal range of motion. Neuro: Awake and alert, GCS 15, oriented to person, place, time, and situation. Cranial nerves II-XII grossly intact. Motor strength 5/5 in all extremities. Sensory grossly intact. Cerebellar exam normal. Normal gait. Psych: Awake, alert, with orientation to person, place and time. Behavior, mood, and affect are within normal limits. 13:53 Back: pain, that is mild, that is moderate, ROM is painful, normal spinal alignment noted, CVA tenderness, is absent, vertebral tenderness, is not appreciated. Vital Signs: 13:06 BP 167 / 93; Pulse 86; Resp 16; Temp 98.4(TE); Pulse Ox 99% on R/A; Weight 68.04 kg; ss Height 5 ft. 2 in. (157.48 cm); Pain 7/10; 15:13 BP 114 / 76; Pulse 78; Resp 16; Temp 98.4; Pulse Ox 99% ; Pain 7/10; ll1 13:06 Body Mass Index 27.44 (68.04 kg, 157.48 cm) ss MDM: 13:42 Patient medically screened. [facility] 09/27 13:52 Order name: Urine Culture [facility] 09/27 14:09 Order name: Urine Dipstick--Ancillary (enter results) 09/27 13:52 Order name: Urine Dipstick-Ancillary (obtain specimen); Complete Time: 14:19 [facility] 09/27 13:52 Order name: Lumbar Spine (3 Views) XRAY; Complete Time: 15:01 [facility] Administered Medications: 14:19 Drug: Decadron 10 mg Route: IM; Site: right gluteus; ll1 15:33 Follow up: Response: No adverse reaction; Pain is unchanged, physician notified ll1 14:19 Drug: TORadol 60 mg Route: IM; Site: left gluteus; ll1 15:33 Follow up: Response: No adverse reaction; Pain is unchanged, physician notified ll1 Disposition: 09/28/19 15:02 Discharged to Home. Impression: Low back pain, Rash and other nonspecific skin eruption, Sciatica, left side, Spondylolysis, lumbar region. - Condition is Stable. - Discharge Instructions: Back Pain, Adult, Chronic Back Pain, Musculoskeletal Pain, Rash, Sciatica, Back Injury Prevention, Chde-pe-Uqpd, Back Pain, Adult, Rjou-eb-Khbj, Rash, Kwzq-fh-Gbxs, Sciatica, Rawy-xn-Bkgq, Back Exercises, Ktjt-fo-Wplt. - Prescriptions for Ibuprofen 600 mg Oral Tablet - take 1 tablet by ORAL route every 6 hours As needed take with food; 20 tablet. Tylenol- Codeine #3 300-30 mg Oral Tablet - take 2 tablets by ORAL route every 6 hours As needed; 24 tablet. Medrol (Remigio) 4 mg Oral Tablets, Dose Pack - take 1 tablet by ORAL route as directed - follow package instructions; 1 packet. Cyclobenzaprine 5 mg Oral Tablet - take 1 tablet by ORAL route 3 times per day As needed; 15 tablet. Nystatin- Triamcinolone 100,000-0.1 unit/g-% Topical Cream - apply 1 application by TOPICAL route 2 times per day; 45 gram. - Medication Reconciliation Form, Thank You Letter, Antibiotic Education, Prescription Opioid Use form. - Follow up: Private Physician; When: 2 - 3 days; Reason: Recheck today's complaints, Continuance of care, Re-evaluation by your physician. Follow up: Maco Mazariegos MD; When: 2 - 3 days; Reason: Recheck today's complaints, Re-evaluation by your physician. - Problem is new. - Symptoms have improved. Signatures: Dispatcher [employer] EDKamari Gilliam MD MD cha Smirch, Shelby, RN RN ss Le Taylor RN RN ll1 Corrections: (The following items were deleted from the chart) 15:02 15:02 09/28/2019 15:02 Discharged to Home. Impression: Low back pain; Rash and other vanna nonspecific skin eruption; Sciatica, left side; Spondylolysis, lumbar region. Condition is Stable. Discharge Instructions: Back Pain, Adult, Chronic Back Pain, Musculoskeletal Pain, Rash, Sciatica, Back Injury Prevention, Rmhc-sp-Ddpz, Back Pain, Adult, Komo-rw-Rioy, Rash, Oxvp-gs-Dvya, Sciatica, Qezi-ue-Ucry, Back Exercises, Mmba-tb-Vkgm. Prescriptions for Ibuprofen 600 mg Oral Tablet - take 1 tablet by ORAL route every 6 hours As needed take with food; 20 tablet, Tylenol-Codeine #3 300-30 mg Oral Tablet - take 2 tablets by ORAL route every 6 hours As needed; 24 tablet, Medrol (Remigio) 4 mg Oral Tablets, Dose Pack - take 1 tablet by ORAL route as directed - follow package instructions; 1 packet, Cyclobenzaprine 5 mg Oral Tablet - take 1 tablet by ORAL route 3 times per day As needed; 15 tablet, Nystatin-Triamcinolone 100,000-0.1 unit/g-% Topical Cream - apply 1 application by TOPICAL route 2 times per day; 45 gram. and Forms are Medication Reconciliation Form, Thank You Letter, Antibiotic Education, Prescription Opioid Use. Follow up: Private Physician; When: 2 - 3 days; Reason: Recheck today's complaints, Continuance of care, Re-evaluation by your physician. Problem is new. Symptoms have improved. vanna 15:33 15:02 09/28/2019 15:02 Discharged to Home. Impression: Low back pain; Rash and other ll1 nonspecific skin eruption; Sciatica, left side; Spondylolysis, lumbar region. Condition is Stable. Discharge Instructions: Back Pain, Adult, Chronic Back Pain, Musculoskeletal Pain, Rash, Sciatica, Back Injury Prevention, Ewtz-az-Bxvz, Back Pain, Adult, Jkeu-op-Ffbe, Rash, Yxli-dt-Sfbn, Sciatica, Gwzb-rp-Kzjn, Back Exercises, Raob-cp-Qyig. Prescriptions for Ibuprofen 600 mg Oral Tablet - take 1 tablet by ORAL route every 6 hours As needed take with food; 20 tablet, Tylenol-Codeine #3 300-30 mg Oral Tablet - take 2 tablets by ORAL route every 6 hours As needed; 24 tablet, Medrol (Remigio) 4 mg Oral Tablets, Dose Pack - take 1 tablet by ORAL route as directed - follow package instructions; 1 packet, Cyclobenzaprine 5 mg Oral Tablet - take 1 tablet by ORAL route 3 times per day As needed; 15 tablet, Nystatin-Triamcinolone 100,000-0.1 unit/g-% Topical Cream - apply 1 application by TOPICAL route 2 times per day; 45 gram. and Forms are Medication Reconciliation Form, Thank You Letter, Antibiotic Education, Prescription Opioid Use. Follow up: Private Physician; When: 2 - 3 days; Reason: Recheck today's complaints, Continuance of care, Re-evaluation by your physician. Follow up: Dr. Maco Mazariegos; When: 2 - 3 days; Reason: Recheck today's complaints, Re-evaluation by your physician. Problem is new. Symptoms have improved. vanna
[2019-09-28 15:12] LABS: Urine Blood TRACE (NEG); Urine Glucose NEGATIVE (NEG); Urine Protein NEGATIVE (NEG); Urine Specific Gravity <1.005 (1.005-1.030); Urine pH 5.5 (5.0-7.0)
[2019-09-28 16:26] VITALS: TEMP 98.4; O2SAT 99
[2019-09-28 16:28] VITALS: BP 114/76
== END 2019-09-28 15:33 | disposition home or self-care (01) ==
LOC: ER 12:34
DX: M54.42 Lumbago with sciatica, left side (principal); M47.896 Other spondylosis, lumbar region; R21 Rash and other nonspecific skin eruption; F17.210 Nicotine dependence, cigarettes, uncomplicated
CPT/HCPCS: 72100; 81003; 87086; 87088; 96372; 99283; J1100

== ENCOUNTER 2019-11-09 17:29 | Emergency (ER) | payer SELFPAY ==
--- OUTSIDE RECORDS SUMMARY | 2019-11-09 17:32 | XMS REPORT ---
:1965 Author Organization [facility] t Address [address] [place] [address] Care Team Providers Name Role Phone [facility] Primary Care Provider Unavailable Problems This patient has no known problems. Allergies, Adverse Reactions, Alerts This patient has no known allergies or adverse reactions. Medications This patient has no known medications. Encounters Start End Encounter Admission Attending Care Care Encounter Date/Time Date/Time Type Type Clinicians Facility Department ID 2017-03-26 2017-03-26 Emergency [facility] [id number] 14:55:00 14:55:00 2017-03-07 2017-03-07 Emergency [facility] [id number] 17:01:00 17:01:00 2017-02-22 2017-02-22 Emergency [facility] [id number] 11:40:00 11:40:00 Results Test Description Test Time Test Comments Text Results Atomic Results Result Comments XR Abdomen KUB 1 View 2019-03-15 18:15:18 Patient: KEKE MCCAULEY Date/Time03/15 18:02 CDTReason for ExamAbdominal distentionReportXR ABDOMEN K UB 1 VIEWDIAGNOSIS: Right lower q uadrant pain and distention for 3 da ysNo bowel obstruction is seen. Vascula r calcifications of the abdome n and pelvis. Surgical clips are n oted from a cholecystectomy. Thoracolumb ar dextroscoliosis and spondylo sis are seen.IMPRESSION: No acute ra diographic abnormality in the abdomen.* Final Dictated by: MD Corrie, Rocky Mitchell DT/TM: 03/15/2019 6:14 pmSigned by: Jae Denton, Rocky Luico (Electronic Signa ture): 03/15/2019 6:15 pm Urinalysis Microscopic 2019-03-15 16:19:42 Test Item Value Reference Range Comments UA WBC (test code = UA WBC) 0-5 /HPF 0-5 UA RBC (test code = UA RBC) 0-4 /HPF 0-4 UA Bacteria (test code = UA Bacteria) Negative /HPF Negative UA Squam Epithelial (test code = UA Squam Epithelial) 21-73 /LPF 0-20 Urinalysis with Culture, if [id number] 16:19:42 Test Item Value Reference Range Comments UA Color (test code = UA Color) Yellow Yellow UA Appear (test code = UA Clear Clear Appear) UA pH (test code = UA pH) 6.5 UA Spec Grav (test code = UA 1.004 SGU 1.005-1.030 Spec Grav) UA Glucose (test code = UA Negative Negative Glucose) UA Bili (test code = UA Bili) Negative Negative UA Ketones (test code = UA Negative Negative Ketones) UA Blood (test code = UA Blood) Trace Negative UA Protein (test code = UA Negative Negative Protein) UA Urobilinogen (test code = UA 0.2 EU/dL >0.2 Urobilinogen) UA Nitrite (test code = UA Negative Negative Nitrite) UA Leuk Est (test code = UA Leuk Negative Negative Est) UA Micro Ind? (test code = UA Indicated Not Indicated Re sult created by rule Micro Ind?) GL_SET_UA_MICRO_ IND [id number] 16:13:11 Test Item Value Reference Range Comments Amylase Level (test code = Amylase Level) 53 IntlUnit/L 25-115 Comprehensive Metabolic [id number] 16:13:11 Test Item Value Reference Range Comments Sodium Level (test code = Sodium Level) 142 mmol/L 136-145 Potassium Level (test code = Potassium Level) 4.0 mmol/L 3. 5-5.1 Chloride Level (test code = Chloride Level) 109 mmol/L 98-1 07 CO2 (test code = CO2) 26 mmol/L 21-32 Anion Gap (test code = Anion Gap) 7 mmol/L 7-16 BUN (test code = BUN) 11 mg/dL 7-18 Creatinine Level (test code = Creatinine 0.5 mg/dL 0.6-1.0 Level) Glucose Level (test code = Glucose Level) 95 mg/dL 74-106 Calcium Level (test code = Calcium Level) 9.4 mg/dL 8.5-10 .1 Alk Phos (test code = Alk Phos) 109 IntlUnit/L 50-136 Bilirubin Total (test code = Bilirubin Total) 0.2 mg/dL 0. 2-1.0 Albumin Level (test code = Albumin Level) 4.2 g/dL 3.4-5. 0 Protein Total (test code = Protein Total) 7.5 g/dL 6.4-8. 2 ALT (test code = ALT) 25 IntlUnit/L 12-78 AST (test code = AST) 20 IntlUnit/L 15-37 Comprehensive Metabolic [id number] 16:13:11 Test Item Value Reference Range Comments Sodium Level (test code = Sodium Level) 142 mmol/L 136-145 Potassium Level (test code = Potassium 4.0 mmol/L 3.5-5.1 Level) Chloride Level (test code = Chloride 109 mmol/L 98-107 Level) CO2 (test code = CO2) 26 mmol/L 21-32 Anion Gap (test code = Anion Gap) 7 mmol/L 7-16 BUN (test code = BUN) 11 mg/dL 7-18 Creatinine Level (test code = Creatinine 0.5 mg/dL 0.6-1.0 Level) Glucose Level (test code = Glucose Level) 95 mg/dL 74-106 Calcium Level (test code = Calcium Level) 9.4 mg/dL 8.5-10 .1 Alk Phos (test code = Alk Phos) 109 IntlUnit/L 50-136 Bilirubin Total (test code = Bilirubin 0.2 mg/dL 0.2-1.0 Total) Albumin Level (test code = Albumin Level) 4.2 g/dL 3.4-5. 0 Protein Total (test code = Protein Total) 7.5 g/dL 6.4-8. 2 ALT (test code = ALT) 25 IntlUnit/L 12-78 AST (test code = AST) 20 IntlUnit/L 15-37 eGFR AA (test code = eGFR AA) >60 mL/min/1.73 m2 Comprehensive Metabolic [id number] 16:13:11 Test Item Value Reference Range Comments Sodium Level (test code = Sodium Level) 142 mmol/L 136-145 Potassium Level (test code = Potassium 4.0 mmol/L 3.5-5.1 Level) Chloride Level (test code = Chloride 109 mmol/L 98-107 Level) CO2 (test code = CO2) 26 mmol/L 21-32 Anion Gap (test code = Anion Gap) 7 mmol/L 7-16 BUN (test code = BUN) 11 mg/dL 7-18 Creatinine Level (test code = Creatinine 0.5 mg/dL 0.6-1.0 Level) Glucose Level (test code = Glucose Level) 95 mg/dL 74-106 Calcium Level (test code = Calcium Level) 9.4 mg/dL 8.5-10 .1 Alk Phos (test code = Alk Phos) 109 IntlUnit/L 50-136 Bilirubin Total (test code = Bilirubin 0.2 mg/dL 0.2-1.0 Total) Albumin Level (test code = Albumin Level) 4.2 g/dL 3.4-5. 0 Protein Total (test code = Protein Total) 7.5 g/dL 6.4-8. 2 ALT (test code = ALT) 25 IntlUnit/L 12-78 AST (test code = AST) 20 IntlUnit/L 15-37 eGFR AA (test code = eGFR AA) >60 mL/min/1.73 m2 eGFR Non-AA (test code = eGFR Non-AA) >60 mL/min/1.73 m2 Automated [id number] 16:12:15 Test Item Value Reference Range Comments Neutro Auto (test code = Neutro Auto) 55.4 % Lymph Auto (test code = Lymph Auto) 36.3 % [place] Auto (test code = [place] Auto) 5.5 % Eos, Auto (test code = Eos, Auto) 1.9 % Basophil Auto (test code = Basophil Auto) 0.9 % Neutro Absolute (test code = Neutro Absolute) 4.9 x10 2. 7-7.3 Lymph Absolute (test code = Lymph Absolute) 3.2 x10 0.8- 3.5 [place] Absolute (test code = [place] Absolute) 0.5 x10 0.3-0. 9 Eos Absolute (test code = Eos Absolute) 0.2 x10 0.0-0.3 Baso Absolute (test code = Baso Absolute) 0.1 x10 0.0-0. 1 Complete Blood Count with [id number] 16:12:14 Test Item Value Reference Range Comments WBC (test code = WBC) 8.8 x10 4.8-10.8 RBC (test code = RBC) 4.47 x10 4.20-5.50 Hgb (test code = Hgb) 13.9 g/dL 12.0-16.0 MCV (test code = MCV) 91.6 fL 80.0-95.0 Hct (test code = Hct) 41.0 % 35.0-47.0 RDW (test code = RDW) 13.4 % 11.5-14.5 MCHC (test code = MCHC) 33.9 g/dL 31.0-36.0 MCH (test code = MCH) 31.0 pg 26.0-32.0 Platelets (test code = 342 x10 140-440 Platelets) MPV (test code = MPV) 6.8 fL 7.5-11.2 Slide Review (test code = Auto Result created by Slide Review) GL_SET_SLIDE_REV IEW_AUTO Comprehensive Metabolic [id number] 14:21:14 Test Item Value Reference Range Comments Sodium Level (test code = Sodium Level) 138 mmol/L 136-145 Potassium Level (test code = Potassium Level) 4.3 mmol/L 3. 5-5.1 Chloride Level (test code = Chloride Level) 105 mmol/L 98-1 07 CO2 (test code = CO2) 27 mmol/L 21-32 Anion Gap (test code = Anion Gap) 6 mmol/L 7-16 BUN (test code = BUN) 6 mg/dL 7-18 Creatinine Level (test code = Creatinine 0.6 mg/dL 0.6-1.0 Level) Glucose Level (test code = Glucose Level) 114 mg/dL 74-106 Calcium Level (test code = Calcium Level) 9.4 mg/dL 8.5-10 .1 Alk Phos (test code = Alk Phos) 125 IntlUnit/L 50-136 Bilirubin Total (test code = Bilirubin Total) 0.4 mg/dL 0. 2-1.0 Albumin Level (test code = Albumin Level) 4.1 g/dL 3.4-5. 0 Protein Total (test code = Protein Total) 7.5 g/dL 6.4-8. 2 ALT (test code = ALT) 31 IntlUnit/L 12-78 AST (test code = AST) 22 IntlUnit/L 15-37 Comprehensive Metabolic [id number] 14:21:14 Test Item Value Reference Range Comments Sodium Level (test code = Sodium Level) 138 mmol/L 136-145 Potassium Level (test code = Potassium 4.3 mmol/L 3.5-5.1 Level) Chloride Level (test code = Chloride 105 mmol/L 98-107 Level) CO2 (test code = CO2) 27 mmol/L 21-32 Anion Gap (test code = Anion Gap) 6 mmol/L 7-16 BUN (test code = BUN) 6 mg/dL 7-18 Creatinine Level (test code = Creatinine 0.6 mg/dL 0.6-1.0 Level) Glucose Level (test code = Glucose Level) 114 mg/dL 74-106 Calcium Level (test code = Calcium Level) 9.4 mg/dL 8.5-10 .1 Alk Phos (test code = Alk Phos) 125 IntlUnit/L 50-136 Bilirubin Total (test code = Bilirubin 0.4 mg/dL 0.2-1.0 Total) Albumin Level (test code = Albumin Level) 4.1 g/dL 3.4-5. 0 Protein Total (test code = Protein Total) 7.5 g/dL 6.4-8. 2 ALT (test code = ALT) 31 IntlUnit/L 12-78 AST (test code = AST) 22 IntlUnit/L 15-37 eGFR AA (test code = eGFR AA) >60 mL/min/1.73 m2 Comprehensive Metabolic [id number] 14:21:14 Test Item Value Reference Range Comments Sodium Level (test code = Sodium Level) 138 mmol/L 136-145 Potassium Level (test code = Potassium 4.3 mmol/L 3.5-5.1 Level) Chloride Level (test code = Chloride 105 mmol/L 98-107 Level) CO2 (test code = CO2) 27 mmol/L 21-32 Anion Gap (test code = Anion Gap) 6 mmol/L 7-16 BUN (test code = BUN) 6 mg/dL 7-18 Creatinine Level (test code = Creatinine 0.6 mg/dL 0.6-1.0 Level) Glucose Level (test code = Glucose Level) 114 mg/dL 74-106 Calcium Level (test code = Calcium Level) 9.4 mg/dL 8.5-10 .1 Alk Phos (test code = Alk Phos) 125 IntlUnit/L 50-136 Bilirubin Total (test code = Bilirubin 0.4 mg/dL 0.2-1.0 Total) Albumin Level (test code = Albumin Level) 4.1 g/dL 3.4-5. 0 Protein Total (test code = Protein Total) 7.5 g/dL 6.4-8. 2 ALT (test code = ALT) 31 IntlUnit/L 12-78 AST (test code = AST) 22 IntlUnit/L 15-37 eGFR AA (test code = eGFR AA) >60 mL/min/1.73 m2 eGFR Non-AA (test code = eGFR Non-AA) >60 mL/min/1.73 m2 Pro B Natriuretic [id number] 14:05:15 Test Item Value Reference Range Comments NT-proBNP (test code = 6 pg/mL 0-125 < 300 pg/ ml - heart failure NT-proBNP) unlikelyAge less than 50 years, > 450 pg/ml - hear t failure lilkelyAge 50 - 75 years, > 900 pg/ml - heart fa ilure likelyAge greater than 75 years, > 1800 pg/ml - heart fa ilure likely Complete Blood Count with [id number] 13:59:12 Test Item Value Reference Range Comments WBC (test code = WBC) 12.0 x10 4.8-10.8 RBC (test code = RBC) 4.86 x10 4.20-5.50 Hgb (test code = Hgb) 14.6 g/dL 12.0-16.0 MCV (test code = MCV) 88.9 fL 80.0-95.0 Hct (test code = Hct) 43.2 % 35.0-47.0 MCHC (test code = MCHC) 33.9 g/dL 31.0-36.0 RDW (test code = RDW) 13.7 % 11.5-14.5 MCH (test code = MCH) 30.1 pg 26.0-32.0 Platelets (test code = 470 x10 140-440 Platelets) MPV (test code = MPV) 6.2 fL 7.5-11.2 Slide Review (test code = Auto Result created by Slide Review) GL_SET_SLIDE_REV IEW_AUTO Automated [id number] 13:59:12 Test Item Value Reference Range Comments Neutro Auto (test code = Neutro Auto) 68.5 % Lymph Auto (test code = Lymph Auto) 24.5 % [place] Auto (test code = [place] Auto) 5.6 % Eos, Auto (test code = Eos, Auto) 1.0 % Basophil Auto (test code = Basophil Auto) 0.4 % Neutro Absolute (test code = Neutro Absolute) 8.2 x10 2. 7-7.3 Lymph Absolute (test code = Lymph Absolute) 2.9 x10 0.8- 3.5 [place] Absolute (test code = [place] Absolute) 0.7 x10 0.3-0. 9 Eos Absolute (test code = Eos Absolute) 0.1 x10 0.0-0.3 Baso Absolute (test code = Baso Absolute) 0.0 x10 0.0-0. 1 XR Chest 2 [id number] 13:41:47Patient: KEKE HAYNES Date/Time02/24/201913:18 CDTReason for ExamShortness [...] Webster Gustavo MDictated DT/TM: 02/24/2019 1:40 pmSigned by: MD Webster Gustavo MSigned (Electronic Signature): 02/24/2019 1:41 pmXR Chest 2 [id number] 10:31:38Patient: KEKE HAYNES Date/Time10/06/2018 10:23 CDTReason for ExamCoughReportXR CHEST 2 VIEWSDIAGNOSIS: Cough and chest painThe heart, lungs and bony thorax are unremarkable and unchanged since 09/22/2018. Hyperinflation suggesting early COPD.IMPRESSION: No active disease and no change since 12/07/2018. Final Dictated by: MD Corrie, Rocky Melendezctjacob DT/TM: 10/06/2018 10:30 amSigned by: MD Denton Michael JackSignsubha (Electronic Signature): 10/06/2018 10:31 amXR Chest 2 Views 2018-09-22 14:38:49Patient: KEKE HAYNES Date/Time09/22/201814:05 CSTReason for ExamRespiratory distressReportCHEST 2 VIEWS:HISTORY: Respiratory distress, fever, shortness of breathCOMPARISON: 03/29/2018The cardiomediastinal silhouette shows no significant abnormality.No pleural fluid or pulmonary infiltrates are identified.The bony architecture appears intact, where adequately seen.IMPRESSION:No active cardiopulmonary process is identified. Final Dictated by: MD Azevedo Ramon JulioDictated DT/TM: 09/22/2018 2:38 pmSigned by: MD Azevedo Ramon JulioSigned (Electronic Signature): 09/22/2018 2:38 pmXR Ankle Complete 3+ Views [id number] 07:53:52Patient: KEKE HAYNES Date/Time09/04/2018 22:40 CSTReason for ExamInjuryReportEXAMINATION: Right ankle 3 viewsTECHNIQUE: AP, lateral, and obli que views of the right ankle were performed.COMPARISON: NoneINDICATION: Fall with posttraumatic right ankle painFINDINGS:No acute fracture-dislocation. No osseous erosions or periosteal reaction. Jointspaces are are relatively well- maintained. No radiopaque foreign bodies. Soft tissues are grossly unr emarkable.IMPRESSION:No acute osseous abnormalities of the right ankle. Final Dictated by: MD Cruz, SamerDictated DT/TM: 09/05/2018 7:49 amSigned by: MD Cruz, RuthrSigned (Electronic Signature): 09/05/2018 7:53 amXR Foot Complete 3+ Views [id number] 07:53:39Patient: KEKE HAYNES Date/Time09/04/2018 22:40 CSTReason for ExamInjuryReportEXAMINATION: Left foot 3 viewsTECHNIQUE: AP, lateral, and oblique views of the left foot were performed.COMPARISON: Left foot x-rays 01/05/2008INDICATION: Fall with posttraumatic left foot painFINDINGS:No acute fracture-dislocation. No osseous erosions or periostealreaction. Mild degenerative changes of the midfoot. No radiopaque foreign bodies. Soft tissues are grossly unremarkable.IMPRESSION:No acute osseous abnormalities of the left foot. Final Dictated by: MD Cruz, SamerDictated DT/TM: 09/05/2018 7:52 amSigned by: MD Cruz, SamerSigned(Electronic Signature): 09/05/2018 7:53 amCT Abdomen and Pelvis w/o [id number] 14:15:18Patient: KEKE HAYNES Date/Time07/09/2018 13:45 CSTReason for Examhematuria, RLQ pain;HematuriaReportREASON FOR STUDY: Hematuria;hematuria, RLQ painCT ABDOMEN AND [...] with a few small bulla present. Recommend follow- up CT chest 6-8 months.Statuspost cholecystectomy with no intrahepatic duct dilatation.Nonobstructive bowel pattern with a few noncomplicated left colonic diverticula. Final Dictated by: MD Leary Craig ADictated DT/TM: 07/09/2018 2:02 pmSigned by: MD Leary Craig ASigned (Electronic Signature): 07/09/2018 2:[id number] 18:24:00 Test Item Value Reference Range Comments GLUCOSE (test code = URGLU) NEGATIVE MG/DL NEG-100 BILIRUBN (test code = URBILI) NEGATIVE NEGATIVE KETONE (test code = URKET) NEGATIVE MG/DL NEGATIVE BLOOD (test code = URBLD) TRACE UR PH (test code = URPH) 8.0 5.0-7.5 PROTEIN (test code = URPRO) NEGATIVE MG/DL NEGATIVE NITRITES (test code = URNIT) NEGATIVE NEGATIVE UROBILINGEN (test code = URURO) 0.2 EU/DL 0.2-1.0 LEUKOCYT (test code = URLEU) NEGATIVE NEGATIVE UA COLOR (test code = UA COLOR) YELLOW YELLOW CLARITY (test code = CLARITY) CLEAR CLEAR SP GRAV (test code = URSPGRAV) 1.005 1.000-1.025 UAMICRO (test code = UAMICRO) YES WBC (test code = URWBC) 0 /HPF 0-5 RBC (test code = URRBC) 3 /HPF 0-2 CASTS (test code = CAST) 1 /LPF 0-3 UR EPI (test code = EPI) 15 /LPF BACTERIA (test code = BACTERIA) NEGATIVE NONE [id number] 18:16:00 Test Item Value Reference Range Comments SODIUM (test code = NA) 143 MMOL/L 137-145 K+ (test code = KSERUM) 3.4 MMOL/L 3.5-5.1 PLE ASE NOTE NEW REFERENCE RANGE( S) IN EFFECT EFFE CTIVE 02/22/2010 - NEW A NALYZER (VITROS 5600) CHLORIDE (test code = CL) 108 MMOL/L 98-107 CO2 (test code = CO2) 30 MMOL/L 22-30 BUN (test code = BUN) 9 MG/DL 7-17 CREA (test code = CREA) 0.5 MG/DL 0.7-1.2 GLUCOSE (test code = 98 MG/DL 70-99 Fasting g lucose normal GLUCOSE) <100 MG/DL- [facility] Diabetes Assoc recommendation CALCIUM (test code = 9.7 MG/DL 8.4-10.2 CABLOOD) TOTPROT (test code = 7.2 G/DL 6.3-8.2 TOTPROT) ALBUMIN (test code = 4.5 G/DL 3.5-5.0 ALBSERUM) BILITOT (test code = 0.3 MG/DL 0.2-1.3 BILITOT) AST (test code = AST) 27 U/L 15-46 PHOSALK (test code = 80 U/L 38-126 PHOSALK) ALT (test code = ALT) 33 U/L 13-69 GFR (test code = GFR) 137 mL/min/1.73m2 A GFR of >90 mL/min/1.73m2 is considered no rmal. [id number] 18:16:00 Test Item Value Reference Range Comments LIPASE (test code = LIPA) 95 U/L 23-300 [id number] 18:07:00 Test Item Value Reference Range Comments WBC (test code = WBC) 6.9 K/UL 3.5-10.9 RBC (test code = RBC) 4.14 M/UL 4.0-5.0 HGB (test code = HGB) 12.5 G/DL 11.5-15.5 HCT (test code = HCT) 36.5 % 34-46 MCV (test code = MCV) 88.2 FL 80-98 MCH (test code = MCH) 30.2 PG 28-32 MCHC (test code = MCHC) 34.2 G/DL 32.5-36.5 RDW (test code = RDW) 13.0 % 11.5-14.5 PLT (test code = PLT) 343 K/UL 150-450 MPV (test code = MPV) 8.8 FL 7.4-10.4 MANDIFF (test code = NO MANDIFF) SCAN (test code = SCAN) NO NEUT% (test code = NEUT%) 50.6 % 40-75 LYMPH% (test code = LYMPH%) 41.2 % 24-44 MONO% (test code = MONO%) 5.8 % 0-13 EOS% (test code = EOS%) 1.9 % 0-4 BASO % (test code = BASO%) 0.4 % 0-2 IG (test code = IG) 0 % 0-1 IG% (test code = IG%) 0.1 % 0-1 IG% = [place] myelocytes, Myelocytes, and Promyelocytes. (Immature neutro phils not including "bands ".) > 3% IG indicates risk o f sepsis NRBC% (test code = NRBC%) 0 /100 WBC ABS NEUT (test code = NEUT) 3.5 K/UL 1.2-7.2 OCCULT BLOOD, [id number] 06:35:00 Test Item Value Reference Range Comments OCCULT BLOOD FECES (test code = OCCBLFEC) NEGATIVE NEGATI VE LOT# CRD (test code = LOT# CRD) 61584 EXP CRD (test code = EXP CRD) 10-20 LOT# DVL (test code = LOT# DVL) [id number] EXP DVL (test code = EXP DVL) 7-21 INT QC (test code = INT QC) PASSED [id number] 00:14:00 Test Item Value Reference Range Comments SODIUM (test code = NA) 143 MMOL/L 137-145 K+ (test code = KSERUM) 4.5 MMOL/L 3.5-5.1 PLE ASE NOTE NEW REFERENCE RANGE( S) IN EFFECT EFFE CTIVE 02/22/2010 - NEW A NALYZER (VITROS 5600) CHLORIDE (test code = CL) 108 MMOL/L 98-107 CO2 (test code = CO2) 24 MMOL/L 22-30 BUN (test code = BUN) 12 MG/DL 7-17 CREA (test code = CREA) 0.6 MG/DL 0.7-1.2 GLUCOSE (test code = 95 MG/DL 70-99 Fasting g lucose normal GLUCOSE) <100 MG/DL- [employer] [place] [employer] recommendation CALCIUM (test code = 9.8 MG/DL 8.4-10.2 CABLOOD) TOTPROT (test code = 6.8 G/DL 6.3-8.2 TOTPROT) ALBUMIN (test code = 4.2 G/DL 3.5-5.0 ALBSERUM) BILITOT (test code = 0.2 MG/DL 0.2-1.3 BILITOT) AST (test code = AST) 23 U/L 15-46 PHOSALK (test code = 87 U/L 38-126 PHOSALK) ALT (test code = ALT) 61 U/L 13-69 GFR (test code = GFR) 111 mL/min/1.73m2 A GFR of >90 mL/min/1.73m2 is considered no rmal. [id number] 00:14:00 Test Item Value Reference Range Comments LIPASE (test code = LIPA) 134 U/L 23-300 ABDOMEN 2 [id number] 21:18:[address] [id number] IMAGING REPORTPatient Name: Amaris HAYNES of Service: [id number]: [id number] Sex: F Order #: [id number] Room: [facility]: 1965 X-Ray Number: [id number] Record Number: [id number] Hospital Number: [id number] Physician: YANNA HAROOrdering Physician: Mallika MAY.History: Abdomen pain.Technique: 3 supine and upright abdominal projections were obtained andreviewed.Findings:There is no s pecific acute appearing abdominal abnormality.There is no evidence to suggest obstruction or free air.The osseous structures appear intact. There is rotatory dextroscoliosis ofthe lumbar spine.Impression:No specific acute appearing abdominal abnormalities.Electronically Signed By: Hao Cole M.D., 04/04/2018 9:16 PMLegally authenticated by CLARA Talley 2018-04-04 21:16:02 [id number] 17:07:00 Test Item Value Reference Range Comments WBC (test code = WBC) 10.3 K/UL 3.5-10.9 RBC (test code = RBC) 3.62 M/UL 4.0-5.0 HGB (test code = HGB) 11.5 G/DL 11.5-15.5 HCT (test code = HCT) 33.6 % 34-46 MCV (test code = MCV) 92.8 FL 80-98 MCH (test code = MCH) 31.8 PG 28-32 MCHC (test code = MCHC) 34.2 G/DL 32.5-36.5 RDW (test code = RDW) 14.1 % 11.5-14.5 PLT (test code = PLT) 663 K/UL 150-450 MPV (test code = MPV) 8.1 FL 7.4-10.4 MANDIFF (test code = NO MANDIFF) SCAN (test code = SCAN) NO NEUT% (test code = NEUT%) 54.7 % 40-75 LYMPH% (test code = LYMPH%) 35.4 % 24-44 MONO% (test code = MONO%) 6.4 % 0-13 EOS% (test code = EOS%) 2.4 % 0-4 BASO % (test code = BASO%) 0.4 % 0-2 IG (test code = IG) 0 % 0-1 IG% (test code = IG%) 0.7 % 0-1 IG% = [place] myelocytes, Myelocytes, and Promyelocytes. (Immature neutro phils not including "bands ".) > 3% IG indicates risk o f sepsis NRBC% (test code = NRBC%) 0 /100 WBC ABS NEUT (test code = NEUT) 5.6 K/UL 1.2-7.2 [id number] 17:06:00 Test Item Value Reference Range Comments GLUCOSE (test code = URGLU) NEGATIVE MG/DL NEG-100 BILIRUBN (test code = URBILI) NEGATIVE NEGATIVE KETONE (test code = URKET) NEGATIVE MG/DL NEGATIVE BLOOD (test code = URBLD) NEGATIVE UR PH (test code = URPH) 6.5 5.0-7.5 PROTEIN (test code = URPRO) NEGATIVE MG/DL NEGATIVE NITRITES (test code = URNIT) NEGATIVE NEGATIVE UROBILINGEN (test code = URURO) 0.2 EU/DL 0.2-1.0 LEUKOCYT (test code = URLEU) NEGATIVE NEGATIVE UA COLOR (test code = UA COLOR) YELLOW YELLOW CLARITY (test code = CLARITY) CLEAR CLEAR SP GRAV (test code = URSPGRAV) 1.005 1.000-1.025 UAMICRO (test code = UAMICRO) NO CT ABDOMEN/PELVIS [id number] 16:28:[address] [id number] IMAGING REPORTPatient Name: Amaris HAYNES of Service: [id number]: 52 Sex: F Order #: [id number] Room: ERSDOB: 1965 X-Ray Number: [id number] Record Number: [id number] Hospital Number: [id number] Physician: YANNA HAROOrderkelsi Physician: DANETTE CLARK ABDOMEN/PELVIS WITH 04/01/2018 3:52 PMHistory: Abd pain without fever, nausea, vomiting, Crohn's diseaseComparisons: 01/26/2016This CT exam was performed using one or more of the following dosereduction techniques: Automated exposure control, adjustment of the MAand/or KV according to patient size or use of iterative reconstruc tiontechnique.IV and oral contrast was administered for the [...] 4:25 PMLegally authenticated by GEORGIA WISEMAN 2018-04-01 16:25:[id number] 14:29:00 Test Item Value Reference Range Comments BLOOD TYPE (test code = TYPE) O Rh Positive ANTIBODY SCREEN (test code = SCREEN) NEGATIVE NEGATIVE PROTHROMBIN TIME WITH [id number] 14:13:00 Test Item Value Reference Range Comments PROTHROMBIN TIME (test code = 12.5 SECONDS 12.0-14.6 IN R Usual Range = 2 to 3 PT) for prevention o f deep vein thrombosis (DVT) INR (test code = INR) 0.9 [id number] 14:13:00 Test Item Value Reference Range Comments PTT (test code = PTT) 37.8 SECONDS 24.4-36.3 HEPARIN TH ERAPEUTIC RANGE 57-92 SECONDS [id number] 14:00:00 Test Item Value Reference Range Comments SODIUM (test code = NA) 140 MMOL/L 137-145 K+ (test code = KSERUM) 4.3 MMOL/L 3.5-5.1 PLE ASE NOTE NEW REFERENCE RANGE( S) IN EFFECT EFFE CTIVE 02/22/2010 - NEW A NALYZER (VITROS 5600) CHLORIDE (test code = CL) 103 MMOL/L 98-107 CO2 (test code = CO2) 29 MMOL/L 22-30 BUN (test code = BUN) 7 MG/DL 7-17 CREA (test code = CREA) 0.5 MG/DL 0.7-1.2 GLUCOSE (test code = 100 MG/DL 70-99 Fasting g lucose normal GLUCOSE) <100 MG/DL- [employer] [place] [employer] recommendation CALCIUM (test code = 9.5 MG/DL 8.4-10.2 CABLOOD) TOTPROT (test code = 6.6 G/DL 6.3-8.2 TOTPROT) ALBUMIN (test code = 4.1 G/DL 3.5-5.0 ALBSERUM) BILITOT (test code = 0.4 MG/DL 0.2-1.3 BILITOT) AST (test code = AST) 72 U/L 15-46 PHOSALK (test code = 117 U/L 38-126 PHOSALK) ALT (test code = ALT) 139 U/L 13-69 GFR (test code = GFR) 137 mL/min/1.73m2 A GFR of >90 mL/min/1.73m2 is considered no rmal. [id number] 14:00:00 Test Item Value Reference Range Comments LIPASE (test code = LIPA) 40 U/L 23-300 [id number] 13:51:00 Test Item Value Reference Range Comments WBC (test code = WBC) 12.5 K/UL 3.5-10.9 RBC (test code = RBC) 3.40 M/UL 4.0-5.0 HGB (test code = HGB) 10.5 G/DL 11.5-15.5 HCT (test code = HCT) 31.8 % 34-46 MCV (test code = MCV) 93.5 FL 80-98 MCH (test code = MCH) 30.9 PG 28-32 MCHC (test code = MCHC) 33.0 G/DL 32.5-36.5 RDW (test code = RDW) 13.8 % 11.5-14.5 PLT (test code = PLT) 441 K/UL 150-450 MPV (test code = MPV) 8.5 FL 7.4-10.4 MANDIFF (test code = NO MANDIFF) SCAN (test code = SCAN) NO NEUT% (test code = NEUT%) 70.7 % 40-75 LYMPH% (test code = LYMPH%) 21.5 % 24-44 MONO% (test code = MONO%) 4.7 % 0-13 EOS% (test code = EOS%) 2.3 % 0-4 BASO % (test code = BASO%) 0.2 % 0-2 IG (test code = IG) 0 % 0-1 IG% (test code = IG%) 0.6 % 0-1 IG% = [place] myelocytes, Myelocytes, and Promyelocytes. (Immature neutro phils not including "bands ".) > 3% IG indicates risk o f sepsis ABS NEUT (test code = NEUT) 8.8 K/UL 1.2-7.2 [id number] 13:22:00 Test Item Value Reference Range Comments GLUCOSE (test code = URGLU) NEGATIVE MG/DL NEG-100 BILIRUBN (test code = URBILI) NEGATIVE NEGATIVE KETONE (test code = URKET) NEGATIVE MG/DL NEGATIVE BLOOD (test code = URBLD) NEGATIVE UR PH (test code = URPH) 7.5 5.0-7.5 PROTEIN (test code = URPRO) NEGATIVE MG/DL NEGATIVE NITRITES (test code = URNIT) NEGATIVE NEGATIVE UROBILINGEN (test code = URURO) 0.2 EU/DL 0.2-1.0 LEUKOCYT (test code = URLEU) NEGATIVE NEGATIVE UA COLOR (test code = UA COLOR) YELLOW YELLOW CLARITY (test code = CLARITY) CLEAR CLEAR SP GRAV (test code = URSPGRAV) 1.003 1.000-1.025 UAMICRO (test code = UAMICRO) NO SPINE LUMBAR [id number] 13:32:[address] [id number] IMAGING REPORTPatient Name: Amaris HAYNES of Service: [id number]: [id number] Sex: F Order #: [id number] [facility] 1965 [facility] Number: [id number] Record Number: [id number] Hospital Number: [id number] Physician: MICHELLE YEOrdering Physician: LAURENCE HONG SPINE [...] changes as described.Electronically Signed By: Jim Streeter M.D., 10/16/2017 1:29 PMLegally authenticated by JENNIFER Daniels 2017-10-16 13:29:[id number] 12:33:00 Test Item Value Reference Range Comments GLUCOSE (test code = URGLU) NEGATIVE MG/DL NEG-100 BILIRUBN (test code = URBILI) NEGATIVE NEGATIVE KETONE (test code = URKET) NEGATIVE MG/DL NEGATIVE BLOOD (test code = URBLD) NEGATIVE UR PH (test code = URPH) 5.5 5.0-7.5 PROTEIN (test code = URPRO) NEGATIVE MG/DL NEGATIVE NITRITES (test code = URNIT) NEGATIVE NEGATIVE UROBILINGEN (test code = URURO) 0.2 EU/DL 0.2-1.0 LEUKOCYT (test code = URLEU) NEGATIVE NEGATIVE UA COLOR (test code = UA COLOR) YELLOW YELLOW CLARITY (test code = CLARITY) CLEAR CLEAR SP GRAV (test code = URSPGRAV) 1.010 1.000-1.025 UAMICRO (test code = UAMICRO) NO WBC (test code = URWBC) 1 /HPF 0-5 RBC (test code = URRBC) 1 /HPF 0-2 CASTS (test code = CAST) 0 /LPF 0-3 UR EPI (test code = EPI) 25 /LPF BACTERIA (test code = BACTERIA) NEGATIVE NONE [id number] 06:46:50CHEST 2 VIEWREASON FOR STUDY: [id number]:The heart and mediastinum are within normal limits. Minor linearscarring or atelectasis is noted involving the right infrahilar region.Lungs appear slightly hyperinflated. Bony structures appear intact. . No other significant findings. IMPRESSION: Minor linear scarring or atelectasis involving the right infrahilarregion. Chest is otherwise clear.
[2019-11-09] MEDS ORDERED: HYDROCODONE/APAP 10/325 TAB ONE (18:27)
--- NOTE | 2019-11-09 18:41 | RAD REPORT ---
EXAM DESCRIPTION: RAD - Pelvis - 11/09/2019 6:33 pm CLINICAL HISTORY: pelvic and back pain COMPARISON: No comparisons FINDINGS: No fracture, dislocation or radiographic evidence of AVN. IMPRESSION: Negative study.
--- NOTE | 2019-11-09 18:42 | RAD REPORT ---
EXAM DESCRIPTION: RAD - Lumbar Spine 3 Views - 11/09/2019 6:35 pm CLINICAL HISTORY: Pain;Lower back pain Radiculopathy COMPARISON: Lumbar Spine 3 Views dated 09/28/2019 FINDINGS: Vertebral body heights appear maintained. No compression fracture noted. Disc thinning wit h small endplate osteophytes noted lower lumbar levels. Mild dextroscoliosis. Aortic atherosclerosis. Cholecystectomy clips. IMPRESSION: Mild lower lumbar spondylosis.
--- NOTE | 2019-11-09 18:47 | EDPHYS ---
Physician Documentation [facility] Name: Bárbara Beebe Age: 54 yrs Sex: Female : 1965 Arrival Date: 11/09/2019 Time: 17:30 Bed 19 Private MD: ED Physician Toñito Baldwin HPI: 11/09 08:13 This 54 yrs old Female presents to ER via Ambulatory with complaints of Fall kdr Injury. 08:13 Details of fall: The patient fell from an upright position, while standing, while kdr walking. Onset: The symptoms/episode began/occurred suddenly, yesterday. Associated injuries: The patient sustained injury to the low back. Severity of symptoms: At their worst the symptoms were mild, in the emergency department the symptoms are unchanged. The patient has not experienced similar symptoms in the past. The patient has not recently seen a physician. Historical: - Allergies: 11/08 17:45 No Known Allergies; ll1 - PMHx: 17:45 COPD; Crohn's; Hypertension; psoriasis; ll1 - PSHx: 17:45 Appendectomy; Hysterectomy; Tonsillectomy; ll1 - Immunization history:: Flu vaccine is not up to date. - Social history:: Smoking status: Patient reports the use of cigarette tobacco products, smokes one-half pack cigarettes per day, Patient/guardian denies using alcohol, street drugs. ROS: 11/09 08:13 Constitutional: Negative for fever, chills, and weight loss, Eyes: Negative for injury, kdr pain, redness, and discharge, ENT: Negative for injury, pain, and discharge, Neck: Negative for injury, pain, and swelling, Cardiovascular: Negative for chest pain, palpitations, and edema, Respiratory: Negative for shortness of breath, cough, wheezing, and pleuritic chest pain, Abdomen/GI: Negative for abdominal pain, nausea, vomiting, diarrhea, and constipation, : Negative for injury, bleeding, discharge, and swelling, MS/Extremity: Negative for injury and deformity, Skin: Negative for injury, rash, and discoloration, Neuro: Negative for headache, weakness, numbness, tingling, and seizure activity. Psych: Negative for depression, anxiety, suicide ideation, homicidal ideation, and hallucinations, Allergy/Immunology: Negative for hives, rash, and allergies, Endocrine: Negative for neck swelling, polydipsia, polyuria, polyphagia, and marked weight changes, Hematologic/Lymphatic: Negative for swollen nodes, abnormal bleeding, and unusual bruising. Back: Positive for injury or acute deformity, pain at rest, pain with movement, of the low back area. Exam: 08:13 Constitutional: This is a well developed, well nourished patient who is awake, alert, kdr and in no acute distress. Head/Face: Normocephalic, atraumatic. Eyes: Pupils equal round and reactive to light, extra-ocular motions intact. Lids and lashes normal. Conjunctiva and sclera are non-icteric and not injected. Cornea within normal limits. Periorbital areas with no swelling, redness, or edema. Neck: Trachea midline, no thyromegaly or masses palpated, and no cervical lymphadenopathy. Supple, full range of motion without nuchal rigidity, or vertebral point tenderness. No Meningismus. Chest/axilla: Normal chest wall appearance and motion. Nontender with no deformity. No lesions are appreciated. Cardiovascular: Regular rate and rhythm with a normal S1 and S2. No gallops, murmurs, or rubs. Normal PMI, no JVD. No pulse deficits. Respiratory: Lungs have equal breath sounds bilaterally, clear to auscultation and percussion. No rales, rhonchi or wheezes noted. No increased work of breathing, no retractions or nasal flaring. Abdomen/GI: Soft, non-tender, with normal bowel sounds. No distension or tympany. No guarding or rebound. No evidence of tenderness throughout. MS/ Extremity: Pulses equal, no cyanosis. Neurovascular intact. Full, normal range of motion. Neuro: Awake and alert, GCS 15, oriented to person, place, time, and situation. Cranial nerves II-XII grossly intact. Motor strength 5/5 in all extremities. Sensory grossly intact. Cerebellar exam normal. Normal gait. Psych: Awake, alert, with orientation to person, place and time. Behavior, mood, and affect are within normal limits. 08:13 Back: pain, that is mild, of the low back area, normal spinal alignment noted, vertebral tenderness, is appreciated at lumbar spine. 08:13 Skin: injury, contusion(s), that are superficial, of the low back area. Vital Signs: 11/08 17:42 BP 181 / 80; Pulse 99; Resp 18; Temp 98.0; Pulse Ox 97% ; Weight 70.31 kg; Height 5 ft. ll1 2 in. (157.48 cm); Pain 7/10; 17:42 Body Mass Index 28.35 (70.31 kg, 157.48 cm) ll1 MDM: 18:46 Patient medically screened. kdr 11/09 08:49 Data reviewed: vital signs, nurses notes, radiologic studies. Counseling: I had a kdr detailed discussion with the patient and/or guardian regarding: the historical points, exam findings, and any diagnostic results supporting the discharge/admit diagnosis, radiology results, the need for outpatient follow up. 11/08 18:12 Order name: Lumbar Spine (3 Views) XRAY; Complete Time: 18:44 kdr 11/08 18:12 Order name: Pelvis XRAY; Complete Time: 18:44 kdr Administered Medications: 11/08 18:25 Drug: Omar 10 mg-325 mg 1 tabs Route: PO; 18:25 Follow up: Response: No adverse reaction Disposition: 11/09/19 18:46 Discharged to Home. Impression: Contusion of back wall of thorax, Contusion of left back wall of thorax, Contusion of right back wall of thorax, Low back pain. - Condition is Stable. - Discharge Instructions: Musculoskeletal Pain, Back Pain, Adult, [id number]. - Prescriptions for Ibuprofen 600 mg Oral Tablet - take 1 tablet by ORAL route every 6 hours As needed take with food; 16 tablet. Tylenol- Codeine #3 300-30 mg Oral Tablet - take 2 tablets by ORAL route every 6 hours As needed; 12 tablet. Cyclobenzaprine 10 mg Oral Tablet - take 1 tablet by ORAL route every 8 hours As needed; 16 tablet. - Medication Reconciliation Form, Thank You Letter, Prescription Opioid Use form. - Follow up: Private Physician; When: 2 - 3 days; Reason: If symptoms return, Further diagnostic work-up, Recheck today's complaints, Continuance of care, Re-evaluation by your physician. - Problem is new. - Symptoms are unchanged. Signatures: Dispatcher [employer] EDToñito Jean MD MD [facility] Griselda Monson RN RN ah Lewis, Lynsay, RN RN ll1 Corrections: (The following items were deleted from the chart) 19:10 18:46 11/09/2019 18:46 Discharged to Home. Impression: Contusion of back wall of ah thorax; Contusion of left back wall of thorax; Contusion of right back wall of thorax; Low back pain. Condition is Stable. Forms are Medication Reconciliation Form, Thank You Letter, Antibiotic Education, Prescription Opioid Use. Follow up: Private Physician; When: 2 - 3 days; Reason: If symptoms return, Further diagnostic work-up, Recheck today's complaints, Continuance of care, Re-evaluation by your physician. Problem is new. Symptoms are unchanged. kdr
--- NOTE | 2019-11-09 18:47 | ER ---
Nurse's Notes [facility] Name: Bárbara Beebe Age: 54 yrs Sex: Female : 1965 Arrival Date: 11/09/2019 Time: 17:30 Bed 19 Private MD: Diagnosis: Contusion of back wall of thorax;Contusion of left back wall of thorax;Contusion of right back wall of thorax;Low back pain Presentation: 11/08 17:42 Chief complaint: Patient states: Back seized up last night and she fell down. Hit Right ll1 lower back on stairs. Pain to entire lower back and left hip pain. Bruising noted to right lower back. No blood thinners. No LOC. + legs aching also. Coronavirus screen: Proceed with normal triage. Patient denies a cough. Patient denies shortness of breath or difficulty breathing. Patient denies measured and/or subjective temperature greater than 100.4F prior to today's visit. Patient denies travel on a cruise ship or to a country [facility] currently lists as an affected area. Patient denies contact with known and/or suspected case of COVID-19. Ebola Screen: Patient denies travel to an Ebola-affected area in the 21 days before illness onset. Initial Sepsis Screen: Does the patient meet any 2 criteria? HR > 90 bpm. No. Patient's initial sepsis screen is negative. Does the patient have a suspected source of infection? No. Patient's initial sepsis screen is negative. Risk Assessment: Do you want to hurt yourself or someone else? Patient reports no desire to harm self or others. Onset of symptoms was November 08, 2019. 17:42 Method Of Arrival: Ambulatory ll1 17:42 Acuity: ANGELA 3 ll1 Triage Assessment: 17:45 General: Behavior is calm, cooperative. 23:02 General: Appears. Historical: - Allergies: 17:45 No Known Allergies; ll1 - PMHx: 17:45 COPD; Crohn's; Hypertension; psoriasis; ll1 - PSHx: 17:45 Appendectomy; Hysterectomy; Tonsillectomy; ll1 - Immunization history:: Flu vaccine is not up to date. - Social history:: Smoking status: Patient reports the use of cigarette tobacco products, smokes one-half pack cigarettes per day, Patient/guardian denies using alcohol, street drugs. Screenin:45 Abuse screen: Denies threats or abuse. Nutritional screening: No deficits noted. Tuberculosis screening: No symptoms or risk factors identified. Fall Risk None identified. Assessment: 17:45 General: Appears uncomfortable, Behavior is calm, cooperative. Pain: Complains of pain ah in low back area Pain radiates to right leg Pain currently is 6 out of 10 on a pain scale. Quality of pain is described as aching, Pain began 1 day ago. Is continuous, Aggravated by increased activity, weight bearing. 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 Cardiovascular: Heart tones S1 S2 present. Cardiovascular: Capillary refill < 3 seconds Patient's skin is warm and dry. Respiratory: Airway is patent Respiratory effort is even, unlabored, Respiratory pattern is regular, symmetrical. GI: Bowel sounds present X 4 quads. Abd is soft and non tender. : No signs and/or symptoms were reported regarding the genitourinary system. EENT: No signs and/or symptoms were reported regarding the EENT system. Derm: No signs and/or symptoms reported regarding the dermatologic system. Musculoskeletal: Circulation, motion, and sensation intact. Reports bruising noted to right hip from falling down the steps. She states that her back tensed up and her legs went out from under her. Vital Signs: 17:42 BP 181 / 80; Pulse 99; Resp 18; Temp 98.0; Pulse Ox 97% ; Weight 70.31 kg; Height 5 ft. ll1 2 in. (157.48 cm); Pain 7/10; 17:42 Body Mass Index 28.35 (70.31 kg, 157.48 cm) ll1 ED Course: 17:30 Patient arrived in ED. ag5 17:44 Triage completed. ll1 17:46 Arm band placed on Patient placed in an exam room, on a stretcher. ll1 17:49 Griselda Monson RN is Primary Nurse. ah 17:52 Toñito Baldwin MD is Attending Physician. kdr 18:00 Patient has correct armband on for positive identification. Placed in gown. Bed in low ah position. Call light in reach. 18:32 Pelvis XRAY In Process Unspecified. EDMS 18:34 Lumbar Spine (3 Views) XRAY In Process Unspecified. EDMS 18:45 No provider procedures requiring assistance completed. Patient did not have IV access during this emergency room visit. Administered Medications: 18:25 Drug: Rinard 10 mg-325 mg 1 tabs Route: PO; 18:25 Follow up: Response: No adverse reaction Outcome: 18:46 Discharge ordered by . [facility] 19:05 Discharged to home ambulatory. 19:05 Condition: stable 19:05 Discharge instructions given to patient, Instructed on discharge instructions, follow up and referral plans. medication usage, Demonstrated understanding of instructions, follow-up care, medications, Prescriptions given X 3. 19:10 Patient left the ED. Signatures: Dispatcher [employer] EDFL Toñito Baldwin MD MD kdr Gaskin, Ajare ag5 Griselda Monson, RN RN Le Taylor RN RN ll1
[2019-11-09 19:16] VITALS: BP 181/80; TEMP 98; O2SAT 97
== END 2019-11-09 19:10 | disposition home or self-care (01) ==
LOC: ER 17:29
DX: S20.222A Contusion of left back wall of thorax, initial encounter (principal); S20.221A Contusion of right back wall of thorax, initial encounter; W19.XXXA Unspecified fall, initial encounter; Y93.01 Activity, walking, marching and hiking; Y92.9 Unspecified place or not applicable; I10 Essential (primary) hypertension; F17.210 Nicotine dependence, cigarettes, uncomplicated
CPT/HCPCS: 72100; 72170; 99283

== ENCOUNTER 2019-12-23 10:41 | Emergency (ER) | payer SELFPAY ==
--- OUTSIDE RECORDS SUMMARY | 2019-12-23 11:48 | XMS REPORT | Continuity of Care Document ---
:1965 Author Organization [facility] t Address [address] [place] [address] Care Team Providers Name Role Phone GC Primary Care Physician Unavailable Problems This patient has no known problems. Allergies, Adverse Reactions, Alerts This patient has no known allergies or adverse reactions. Medications This patient has no known medications. Procedures This patient has no known procedures. Encounters Start End Encounter Admission Attending Care Care Encounter Source Date/Time Date/Time Type Type Clinicians Facility Department ID 2017-03-26 2017-03-26 Emergency [facility] [id number] Medical 14:55:00 14:55:00 [facility] 2017-03-07 2017-03-07 Emergency [facility] [id number] Medical 17:01:00 17:01:00 [facility] 2017-02-22 2017-02-22 Emergency [facility] [id number] Medical 11:40:00 11:40:00 [facility] Results Test Description Test Time Test Comments Results Result Sourc e Comments XR Abdomen KUB 1 2019-03-15 Patient: Lisseth HAYNES 18:15:18 KEKE Date/Time03/15/2019 18:02 CDTReason for ExamAbdominal distentionReportXR ABDOMEN KUB 1 VIEWDIAGNOSIS: Right lower quadrant pain and distention for 3 daysNo bowel obstruction is seen. Vascular calcifications of the abdomen and pelvis. Surgical clips are noted from a cholecystectomy. Thoracolumbar dextroscoliosis and spondylosis are seen.IMPRESSION: No acute radiographic abnormality in the abdomen. Final Dictated by: MD Denton Michael JackDictated DT/TM: 03/15/2019 6:14 pmSigned by: MD Denton Michael JackSigned (Electronic Signature): 03/15/2019 6:15 pm Urinalysis Microscopic 2019-03-15 16:19:42 Test Item Value Reference Range Interpretation Comme nts UA WBC (test code = UA WBC) 0-5 /HPF 0-5 UA RBC (test code = UA RBC) 0-4 /HPF 0-4 UA Bacteria (test code = UA Bacteria) Negative /HPF Negative UA Squam Epithelial (test code = UA Squam Epithelial) 21-73 /LPF 0-20 A Urinalysis with Culture, if [id number] 16:19:42 Test Item Value Reference Range Interpretation Comments UA Color (test code = UA Yellow Yellow Color) UA Appear (test code = Clear Clear UA Appear) UA pH (test code = UA 6.5 pH) UA Spec Grav (test code 1.004 SGU 1.005-1.030 L = UA Spec Grav) UA Glucose (test code = Negative Negative UA Glucose) UA Bili (test code = UA Negative Negative Bili) UA Ketones (test code = Negative Negative UA Ketones) UA Blood (test code = UA Trace Negative A Blood) UA Protein (test code = Negative Negative UA Protein) UA Urobilinogen (test 0.2 EU/dL >0.2 code = UA Urobilinogen) UA Nitrite (test code = Negative Negative UA Nitrite) UA Leuk Est (test code = Negative Negative UA Leuk Est) UA Micro Ind? (test code Indicated Not Indicated A Re sult created by = UA Micro Ind?) rule GL_SET_UA_MICRO _IND [id number] 16:13:11 Test Item Value Reference Range Interpretation Comments Amylase Level (test code = 53 IntlUnit/L 25-115 Amylase Level) Comprehensive Metabolic [id number] 16:13:11 Test Item Value Reference Range Interpretation Comments Sodium Level (test code = 142 mmol/L 136-145 Sodium Level) Potassium Level (test code = 4.0 mmol/L 3.5-5.1 Potassium Level) Chloride Level (test code = 109 mmol/L 98-107 H Chloride Level) CO2 (test code = CO2) 26 mmol/L 21-32 Anion Gap (test code = Anion 7 mmol/L 7-16 Gap) BUN (test code = BUN) 11 mg/dL 7-18 Creatinine Level (test code = 0.5 mg/dL 0.6-1.0 L Creatinine Level) Glucose Level (test code = 95 mg/dL 74-106 Glucose Level) Calcium Level (test code = 9.4 mg/dL 8.5-10.1 Calcium Level) Alk Phos (test code = Alk 109 IntlUnit/L 50-136 Phos) Bilirubin Total (test code = 0.2 mg/dL 0.2-1.0 Bilirubin Total) Albumin Level (test code = 4.2 g/dL 3.4-5.0 Albumin Level) Protein Total (test code = 7.5 g/dL 6.4-8.2 Protein Total) ALT (test code = ALT) 25 IntlUnit/L 12-78 AST (test code = AST) 20 IntlUnit/L 15- Comprehensive Metabolic [id number] 16:13:11 Test Item Value Reference Range Interpretation Comments Sodium Level (test code = 142 mmol/L 136-145 Sodium Level) Potassium Level (test code 4.0 mmol/L 3.5-5.1 = Potassium Level) Chloride Level (test code 109 mmol/L 98-107 H = Chloride Level) CO2 (test code = CO2) 26 mmol/L 21-32 Anion Gap (test code = 7 mmol/L 7-16 Anion Gap) BUN (test code = BUN) 11 mg/dL 7-18 Creatinine Level (test 0.5 mg/dL 0.6-1.0 L code = Creatinine Level) Glucose Level (test code = 95 mg/dL 74-106 Glucose Level) Calcium Level (test code = 9.4 mg/dL 8.5-10.1 Calcium Level) Alk Phos (test code = Alk 109 IntlUnit/L 50-136 Phos) Bilirubin Total (test code 0.2 mg/dL 0.2-1.0 = Bilirubin Total) Albumin Level (test code = 4.2 g/dL 3.4-5.0 Albumin Level) Protein Total (test code = 7.5 g/dL 6.4-8.2 Protein Total) ALT (test code = ALT) 25 IntlUnit/L 12-78 AST (test code = AST) 20 IntlUnit/L 15-37 eGFR AA (test code = eGFR >60 mL/min/1.73 m2 N AA) Comprehensive Metabolic [id number] 16:13:11 Test Item Value Reference Range Interpretation Comments Sodium Level (test code = 142 mmol/L 136-145 Sodium Level) Potassium Level (test code 4.0 mmol/L 3.5-5.1 = Potassium Level) Chloride Level (test code 109 mmol/L 98-107 H = Chloride Level) CO2 (test code = CO2) 26 mmol/L 21-32 Anion Gap (test code = 7 mmol/L 7-16 Anion Gap) BUN (test code = BUN) 11 mg/dL 7-18 Creatinine Level (test 0.5 mg/dL 0.6-1.0 L code = Creatinine Level) Glucose Level (test code = 95 mg/dL 74-106 Glucose Level) Calcium Level (test code = 9.4 mg/dL 8.5-10.1 Calcium Level) Alk Phos (test code = Alk 109 IntlUnit/L 50-136 Phos) Bilirubin Total (test code 0.2 mg/dL 0.2-1.0 = Bilirubin Total) Albumin Level (test code = 4.2 g/dL 3.4-5.0 Albumin Level) Protein Total (test code = 7.5 g/dL 6.4-8.2 Protein Total) ALT (test code = ALT) 25 IntlUnit/L 12-78 AST (test code = AST) 20 IntlUnit/L 15-37 eGFR AA (test code = eGFR >60 mL/min/1.73 m2 N AA) eGFR Non-AA (test code = >60 mL/min/1.73 m2 N eGFR Non-AA) Automated [id number] 16:12:15 Test Item Value Reference Range Interpretation Comments Neutro Auto (test code = Neutro Auto) 55.4 % N Lymph Auto (test code = Lymph Auto) 36.3 % N Lincoln Auto (test code = Lincoln Auto) 5.5 % N Eos, Auto (test code = Eos, Auto) 1.9 % N Basophil Auto (test code = Basophil 0.9 % N Auto) Neutro Absolute (test code = Neutro 4.9 x10 2.7-7.3 Absolute) Lymph Absolute (test code = Lymph 3.2 x10 0.8-3.5 Absolute) Lincoln Absolute (test code = Lincoln 0.5 x10 0.3-0.9 Absolute) Eos Absolute (test code = Eos 0.2 x10 0.0-0.3 Absolute) Baso Absolute (test code = Baso 0.1 x10 0.0-0.1 Absolute) Complete Blood Count with [id number] 16:12:14 Test Item Value Reference Range Interpretation Comments WBC (test code = WBC) 8.8 [...] (test code = MPV) 6.8 fL 7.5-11.2 L Slide Review (test code Auto N Resu lt created by = Slide Review) GL_SET_SLIDE _REVIEW_A [facility] Comprehensive Metabolic [id number] 14:21:14 Test Item Value Reference Range Interpretation Comments Sodium Level (test code = 138 mmol/L 136-145 Sodium Level) Potassium Level (test code = 4.3 mmol/L 3.5-5.1 Potassium Level) Chloride Level (test code = 105 mmol/L 98-107 Chloride Level) CO2 (test code = CO2) 27 mmol/L 21-32 Anion Gap (test code = Anion 6 mmol/L 7-16 L Gap) BUN (test code = BUN) 6 mg/dL 7-18 L Creatinine Level (test code = 0.6 mg/dL 0.6-1.0 Creatinine Level) Glucose Level (test code = 114 mg/dL 74-106 H Glucose Level) Calcium Level (test code = 9.4 mg/dL 8.5-10.1 Calcium Level) Alk Phos (test code = Alk 125 IntlUnit/L 50-136 Phos) Bilirubin Total (test code = 0.4 mg/dL 0.2-1.0 Bilirubin Total) Albumin Level (test code = 4.1 g/dL 3.4-5.0 Albumin Level) Protein Total (test code = 7.5 g/dL 6.4-8.2 Protein Total) ALT (test code = ALT) 31 IntlUnit/L 12-78 AST (test code = AST) 22 IntlUnit/L 15-37 Comprehensive Metabolic [id number] 14:21:14 Test Item Value Reference Range Interpretation Comments Sodium Level (test code = 138 mmol/L 136-145 Sodium Level) Potassium Level (test code 4.3 mmol/L 3.5-5.1 = Potassium Level) Chloride Level (test code 105 mmol/L 98-107 = Chloride Level) CO2 (test code = CO2) 27 mmol/L 21-32 Anion Gap (test code = 6 mmol/L 7-16 L Anion Gap) BUN (test code = BUN) 6 mg/dL 7-18 L Creatinine Level (test 0.6 mg/dL 0.6-1.0 code = Creatinine Level) Glucose Level (test code = 114 mg/dL 74-106 H Glucose Level) Calcium Level (test code = 9.4 mg/dL 8.5-10.1 Calcium Level) Alk Phos (test code = Alk 125 IntlUnit/L 50-136 Phos) Bilirubin Total (test code 0.4 mg/dL 0.2-1.0 = Bilirubin Total) Albumin Level (test code = 4.1 g/dL 3.4-5.0 Albumin Level) Protein Total (test code = 7.5 g/dL 6.4-8.2 Protein Total) ALT (test code = ALT) 31 IntlUnit/L 12-78 AST (test code = AST) 22 IntlUnit/L 15-37 eGFR AA (test code = eGFR >60 mL/min/1.73 m2 N AA) Comprehensive Metabolic [id number] 14:21:14 Test Item Value Reference Range Interpretation Comments Sodium Level (test code = 138 mmol/L 136-145 Sodium Level) Potassium Level (test code 4.3 mmol/L 3.5-5.1 = Potassium Level) Chloride Level (test code 105 mmol/L 98-107 = Chloride Level) CO2 (test code = CO2) 27 mmol/L 21-32 Anion Gap (test code = 6 mmol/L 7-16 L Anion Gap) BUN (test code = BUN) 6 mg/dL 7-18 L Creatinine Level (test 0.6 mg/dL 0.6-1.0 code = Creatinine Level) Glucose Level (test code = 114 mg/dL 74-106 H Glucose Level) Calcium Level (test code = 9.4 mg/dL 8.5-10.1 Calcium Level) Alk Phos (test code = Alk 125 IntlUnit/L 50-136 Phos) Bilirubin Total (test code 0.4 mg/dL 0.2-1.0 = Bilirubin Total) Albumin Level (test code = 4.1 g/dL 3.4-5.0 Albumin Level) Protein Total (test code = 7.5 g/dL 6.4-8.2 Protein Total) ALT (test code = ALT) 31 IntlUnit/L 12-78 AST (test code = AST) 22 IntlUnit/L 15-37 eGFR AA (test code = eGFR >60 mL/min/1.73 m2 N AA) eGFR Non-AA (test code = >60 mL/min/1.73 m2 N eGFR Non-AA) Pro B Natriuretic [id number] 14:05:15 Test Item Value Reference Range Interpretation Comments NT-proBNP (test code 6 pg/mL 0-125 < 300 p g/ml - heart = NT-proBNP) failure unlikel yAge less than 50 years, > 450 pg/ml - heart f ailure lilkelyAge 50 - 75 years, > 900 pg/ml - h eart failure likelyA ge greater than 75 years, > 1800 pg/ml - heart f ailure likely Complete Blood Count with [id number] 13:59:12 Test Item Value Reference Range Interpretation Comments WBC (test code = WBC) 12.0 x10 4.8-10.8 H RBC (test code = RBC) 4.86 x10 4.20-5.50 Hgb (test code = Hgb) 14.6 g/dL 12.0-16.0 MCV (test code = MCV) 88.9 fL 80.0-95.0 Hct (test code = Hct) 43.2 % 35.0-47.0 MCHC (test code = MCHC) 33.9 g/dL 31.0-36.0 RDW (test code = RDW) 13.7 % 11.5-14.5 MCH (test code = MCH) 30.1 pg 26.0-32.0 Platelets (test code = 470 x10 140-440 H Platelets) MPV (test code = MPV) 6.2 fL 7.5-11.2 L Slide Review (test code Auto N Resu lt created by = Slide Review) GL_SET_SLIDE _REVIEW_A UTO Automated [id number] 13:59:12 Test Item Value Reference Range Interpretation Comments Neutro Auto (test code = Neutro Auto) 68.5 % N Lymph Auto (test code = Lymph Auto) 24.5 % N Lincoln Auto (test code = Lincoln Auto) 5.6 % N Eos, Auto (test code = Eos, Auto) 1.0 % N Basophil Auto (test code = Basophil 0.4 % N Auto) Neutro Absolute (test code = Neutro 8.2 x10 2.7-7.3 H Absolute) Lymph Absolute (test code = Lymph 2.9 x10 0.8-3.5 Absolute) Lincoln Absolute (test code = Lincoln 0.7 x10 0.3-0.9 Absolute) Eos Absolute (test code = Eos 0.1 x10 0.0-0.3 Absolute) Baso Absolute (test code = Baso 0.0 x10 0.0-0.1 Absolute) XR Chest 2 [id number] 13:41:47Patient: KEKE HAYNES Date/Time02/24/201913:18 CDTReason for ExamShortness [...] (Electronic Signature): 02/24/2019 1:41 pmXR Chest 2 [id number] 10:31:38Patient: KEKE HAYNES Date/Time10/06/2018 10:23 CDTReason for ExamCoughReportXR CHEST 2 VIEWSDIAGNOSIS: Cough and chest painThe heart, lungs and bony thorax are unremarkable and unchanged since 09/22/2018. Hyperinflation suggesting early COPD.IMPRESSION: No active disease and no change since 12/07/2018. Final Dictated by: MD Corrie, Rocky Mitchell DT/TM: 10/06/2018 10:30 amSigned by: MD Corrie, Rocky Lucio (Electronic Signature): 10/06/2018 10:31 amXR Chest 2 Views 2018-09-22 14:38:49Patient: KEKE HAYNES Date/Time09/22/201814:05 CSTReason for ExamRespiratory distressReportCHEST 2 VIEWS:HISTORY: Respiratory distress, fever, shortness of breathCOMPARISON: 03/29/2018The cardiomediastinal silhouette shows no significant abnormality.No pleural fluid or pulmonary infiltrates are identified.The bony architecture appears intact, where adequately seen.IMPRESSION:No active cardiopulmonary process is identified. Final Dictated by: MD Azevedo Ramon JulioDictjacob DT/TM: 09/22/2018 2:38 pmSigned by: MD Azevedo Ramon JulioSigned (Electronic Signature): 09/22/2018 2:38 pmXR Ankle Complete 3+ Views [id number] 07:53:52Patient: KEKE HAYNES Date/Time09/04/2018 22:40 CSTReason for [...] DT/TM: 09/05/2018 7:49 amSigned by: MD Cruz, Apoloniaigned (Electronic Signature): 09/05/2018 7:53 amXR Foot Complete 3+ Views [id number] 07:53:39Patient: KEKE HAYNES Date/Time09/04/2018 22:40 CSTReason for [...] SamerDictated DT/TM: 09/05/2018 7:52 amSigned by: MD Arroyo SamerSigned(Electronic Signature): 09/05/2018 7:53 amCT Abdomen and Pelvis w/o [id number] 14:15:18Patient: KEKE HAYNES Date/Time07/09/2018 13:45 CSTReason for [...] MD Leary Craig ASigned (Electronic Signature): 07/09/2018 2:[id number] 18:24:00 Test Item Value Reference Range Interpretation Comments GLUCOSE (test code = URGLU) NEGATIVE MG/DL NEG-100 BILIRUBN (test code = URBILI) NEGATIVE NEGATIVE KETONE (test code = URKET) NEGATIVE MG/DL NEGATIVE BLOOD (test code = URBLD) TRACE UR PH (test code = URPH) 8.0 5.0-7.5 H PROTEIN (test code = URPRO) NEGATIVE MG/DL NEGATIVE NITRITES (test code = URNIT) NEGATIVE NEGATIVE UROBILINGEN (test code = 0.2 EU/DL 0.2-1.0 URURO) LEUKOCYT (test code = URLEU) NEGATIVE NEGATIVE UA COLOR (test code = UA YELLOW YELLOW COLOR) CLARITY (test code = CLARITY) CLEAR CLEAR SP GRAV (test code = URSPGRAV) 1.005 1.000-1.025 UAMICRO (test code = UAMICRO) YES WBC (test code = URWBC) 0 /HPF 0-5 RBC (test code = URRBC) 3 /HPF 0-2 H CASTS (test code = CAST) 1 /LPF 0-3 UR EPI (test code = EPI) 15 /LPF BACTERIA (test code = NEGATIVE NONE BACTERIA) [id number] 18:16:00 Test Item Value Reference Range Interpretation Comments SODIUM (test code = 143 MMOL/L 137-145 NA) K+ (test code = 3.4 MMOL/L 3.5-5.1 L PLEASE NOTE NEW KSERUM) REFERENCE RANGE (S) IN EFFECT EFFECTIVE 010 - NEW ANALYZER (V ITROS 5600) CHLORIDE (test code 108 MMOL/L 98-107 H = CL) CO2 (test code = 30 MMOL/L 22-30 CO2) BUN (test code = 9 MG/DL 7-17 BUN) CREA (test code = 0.5 MG/DL 0.7-1.2 L CREA) GLUCOSE (test code 98 MG/DL 70-99 Fasting glucose = GLUCOSE) normal <100 MG/ DL- [employer] recommendation* * CALCIUM (test code 9.7 MG/DL 8.4-10.2 = CABLOOD) TOTPROT (test code 7.2 G/DL 6.3-8.2 = TOTPROT) ALBUMIN (test code 4.5 G/DL 3.5-5.0 = ALBSERUM) BILITOT (test code 0.3 MG/DL 0.2-1.3 = BILITOT) AST (test code = 27 U/L 15-46 AST) PHOSALK (test code 80 U/L 38-126 = PHOSALK) ALT (test code = 33 U/L 13-69 ALT) GFR (test code = 137 A GFR of >9 0 GFR) mL/min/1.73m2 mL/min/1.73m2 is considered norm al. [id number] 18:16:00 Test Item Value Reference Range Interpretation Comments LIPASE (test code = LIPA) 95 U/L 23-300 [id number] 18:07:00 Test Item Value Reference Range Interpretation Comments WBC (test code = 6.9 K/UL 3.5-10.9 WBC) RBC (test code = 4.14 M/UL 4.0-5.0 RBC) HGB (test code = 12.5 G/DL 11.5-15.5 HGB) HCT (test code = 36.5 % 34-46 HCT) MCV (test code = 88.2 FL 80-98 MCV) MCH (test code = 30.2 PG 28-32 MCH) MCHC (test code = 34.2 G/DL 32.5-36.5 MCHC) RDW (test code = 13.0 % 11.5-14.5 RDW) PLT (test code = 343 K/UL 150-450 PLT) MPV (test code = 8.8 FL 7.4-10.4 MPV) MANDIFF (test code = NO MANDIFF) SCAN (test code = NO SCAN) NEUT% (test code = 50.6 % 40-75 NEUT%) LYMPH% (test code = 41.2 % 24-44 LYMPH%) MONO% (test code = 5.8 % 0-13 MONO%) EOS% (test code = 1.9 % 0-4 EOS%) BASO % (test code = 0.4 % 0-2 BASO%) IG (test code = IG) 0 % 0-1 IG% (test code = 0.1 % 0-1 IG% = Metam yelocytes, IG%) Myelocytes, and Promyelocytes. (Immature neutr ophils not including " bands".) > 3% IG indic ates risk of sepsis NRBC% (test code = 0 /100 WBC NRBC%) ABS NEUT (test code 3.5 K/UL 1.2-7.2 = NEUT) OCCULT BLOOD, [id number] 06:35:00 Test Item Value Reference Range Interpretation Comments OCCULT BLOOD FECES (test code = NEGATIVE NEGATIVE OCCBLFEC) LOT# CRD (test code = LOT# CRD) [id number] EXP CRD (test code = EXP CRD) 10-20 LOT# DVL (test code = LOT# DVL) [id number] EXP DVL (test code = EXP DVL) 7- INT QC (test code = INT QC) PASSED [id number] 00:14:00 Test Item Value Reference Range Interpretation Comments SODIUM (test code = 143 MMOL/L 137-145 NA) K+ (test code = 4.5 MMOL/L 3.5-5.1 PLEASE NOTE NEW KSERUM) REFERENCE RANGE (S) IN EFFECT EFFECTIVE 010 - NEW ANALYZER (V ITROS 5600) CHLORIDE (test code 108 MMOL/L 98-107 H = CL) CO2 (test code = 24 MMOL/L 22-30 CO2) BUN (test code = 12 MG/DL 7-17 BUN) CREA (test code = 0.6 MG/DL 0.7-1.2 L CREA) GLUCOSE (test code 95 MG/DL 70-99 Fasting glucose = GLUCOSE) normal <100 MG/ DL- [employer] recommendation* * CALCIUM (test code 9.8 MG/DL 8.4-10.2 = CABLOOD) TOTPROT (test code 6.8 G/DL 6.3-8.2 = TOTPROT) ALBUMIN (test code 4.2 G/DL 3.5-5.0 = ALBSERUM) BILITOT (test code 0.2 MG/DL 0.2-1.3 = BILITOT) AST (test code = 23 U/L 15-46 AST) PHOSALK (test code 87 U/L 38-126 = PHOSALK) ALT (test code = 61 U/L 13-69 ALT) GFR (test code = 111 A GFR of >9 0 GFR) mL/min/1.73m2 mL/min/1.73m2 is considered norm al. [id number] 00:14:00 Test Item Value Reference Range Interpretation Comments LIPASE (test code = LIPA) 134 U/L 23-300 ABDOMEN 2 [id number] 21:18:[address] [id number] IMAGING REPORTPatient Name: Amaris HAYNES of Service: [id number]: 52 Sex: F Order #: [id number] Room: [facility]: 1965 X-Ray Number: [id number] Record Number: [id number] Hospital Number: [id number] Physician: YANNA HAROOrdering Physician: Mallika MAY.History: Abdomen [...] PMLegally authenticated by CLARA Talley 2018-04-04 21:16:02 [id number] 17:07:00 Test Item Value Reference Range Interpretation Comments WBC (test code = 10.3 K/UL 3.5-10.9 WBC) RBC (test code = 3.62 M/UL 4.0-5.0 L RBC) HGB (test code = 11.5 G/DL 11.5-15.5 HGB) HCT (test code = 33.6 % 34-46 L HCT) MCV (test code = 92.8 FL 80-98 MCV) MCH (test code = 31.8 PG 28-32 MCH) MCHC (test code = 34.2 G/DL 32.5-36.5 MCHC) RDW (test code = 14.1 % 11.5-14.5 RDW) PLT (test code = 663 K/UL 150-450 H PLT) MPV (test code = 8.1 FL 7.4-10.4 MPV) MANDIFF (test code = NO MANDIFF) SCAN (test code = NO SCAN) NEUT% (test code = 54.7 % 40-75 NEUT%) LYMPH% (test code = 35.4 % 24-44 LYMPH%) MONO% (test code = 6.4 % 0-13 MONO%) EOS% (test code = 2.4 % 0-4 EOS%) BASO % (test code = 0.4 % 0-2 BASO%) IG (test code = IG) 0 % 0-1 IG% (test code = 0.7 % 0-1 IG% = Metam yelocytes, IG%) Myelocytes, and Promyelocytes. (Immature neutr ophils not including " bands".) > 3% IG indic ates risk of sepsis NRBC% (test code = 0 /100 WBC NRBC%) ABS NEUT (test code 5.6 K/UL 1.2-7.2 = NEUT) [id number] 17:06:00 Test Item Value Reference Range Interpretation Comments GLUCOSE (test code = URGLU) NEGATIVE MG/DL NEG-100 BILIRUBN (test code = URBILI) NEGATIVE NEGATIVE KETONE (test code = URKET) NEGATIVE MG/DL NEGATIVE BLOOD (test code = URBLD) NEGATIVE UR PH (test code = URPH) 6.5 5.0-7.5 PROTEIN (test code = URPRO) NEGATIVE MG/DL NEGATIVE NITRITES (test code = URNIT) NEGATIVE NEGATIVE UROBILINGEN (test code = 0.2 EU/DL 0.2-1.0 URURO) LEUKOCYT (test code = URLEU) NEGATIVE NEGATIVE UA COLOR (test code = UA YELLOW YELLOW COLOR) CLARITY (test code = CLARITY) CLEAR CLEAR SP GRAV (test code = URSPGRAV) 1.005 1.000-1.025 UAMICRO (test code = UAMICRO) NO CT ABDOMEN/PELVIS [id number] 16:28:[address] [id number] IMAGING REPORTPatient Name: Amaris HAYNES of Service: [id number]: 52 Sex: F Order #: [id number] [facility] 1965 [facility] Number: [id number] Record Number: [id number] Hospital Number: [id number] Physician: YANNA HAROOrdering Physician: DANETTE CLARK ABDOMEN/PELVIS [...] 4:25 PMLegally authenticated by GEORGIA WISEMAN 2018-04-01 16:25:[id number] 14:29:00 Test Item Value Reference Range Interpretation Comments BLOOD TYPE (test code = TYPE) O Rh Positive ANTIBODY SCREEN (test code = NEGATIVE NEGATIVE SCREEN) PROTHROMBIN TIME WITH [id number] 14:13:00 Test Item Value Reference Range Interpretation Comments PROTHROMBIN TIME 12.5 SECONDS 12.0-14.6 INR Usual R john = 2 (test code = PT) to 3 for pr evention of deep vein thrombosis (DVT ) INR (test code = INR) 0.9 [id number] 14:13:00 Test Item Value Reference Range Interpretation Comments PTT (test code = 37.8 SECONDS 24.4-36.3 H HEPARIN THE RAPEUTIC PTT) RANGE 57-92 SEC ONDS [id number] 14:00:00 Test Item Value Reference Range Interpretation Comments SODIUM (test code = 140 MMOL/L 137-145 NA) K+ (test code = 4.3 MMOL/L 3.5-5.1 PLEASE NOTE NEW KSERUM) REFERENCE RANGE (S) IN EFFECT EFFECTIVE 010 - NEW ANALYZER (V ITROS 5600) CHLORIDE (test code 103 MMOL/L 98-107 = CL) CO2 (test code = 29 MMOL/L 22-30 CO2) BUN (test code = 7 MG/DL 7-17 BUN) CREA (test code = 0.5 MG/DL 0.7-1.2 L CREA) GLUCOSE (test code 100 MG/DL 70-99 H Fasting glucose = GLUCOSE) normal <100 MG/ DL- [employer] recommendation* * CALCIUM (test code 9.5 MG/DL 8.4-10.2 = CABLOOD) TOTPROT (test code 6.6 G/DL 6.3-8.2 = TOTPROT) ALBUMIN (test code 4.1 G/DL 3.5-5.0 = ALBSERUM) BILITOT (test code 0.4 MG/DL 0.2-1.3 = BILITOT) AST (test code = 72 U/L 15-46 H AST) PHOSALK (test code 117 U/L 38-126 = PHOSALK) ALT (test code = 139 U/L 13-69 H ALT) GFR (test code = 137 A GFR of >9 0 GFR) mL/min/1.73m2 mL/min/1.73m2 is considered norm al. [id number] 14:00:00 Test Item Value Reference Range Interpretation Comments LIPASE (test code = LIPA) 40 U/L 23-300 [id number] 13:51:00 Test Item Value Reference Range Interpretation Comments WBC (test code = 12.5 K/UL 3.5-10.9 H WBC) RBC (test code = 3.40 M/UL 4.0-5.0 L RBC) HGB (test code = 10.5 G/DL 11.5-15.5 L HGB) HCT (test code = 31.8 % 34-46 L HCT) MCV (test code = 93.5 FL 80-98 MCV) MCH (test code = 30.9 PG 28-32 MCH) MCHC (test code = 33.0 G/DL 32.5-36.5 MCHC) RDW (test code = 13.8 % 11.5-14.5 RDW) PLT (test code = 441 K/UL 150-450 PLT) MPV (test code = 8.5 FL 7.4-10.4 MPV) MANDIFF (test code = NO MANDIFF) SCAN (test code = NO SCAN) NEUT% (test code = 70.7 % 40-75 NEUT%) LYMPH% (test code = 21.5 % 24-44 L LYMPH%) MONO% (test code = 4.7 % 0-13 MONO%) EOS% (test code = 2.3 % 0-4 EOS%) BASO % (test code = 0.2 % 0-2 BASO%) IG (test code = IG) 0 % 0-1 IG% (test code = 0.6 % 0-1 IG% = Metam yelocytes, IG%) Myelocytes, and Promyelocytes. (Immature neutrophils not including "band s".) > 3% IG indicates risk of sepsis ABS NEUT (test code 8.8 K/UL 1.2-7.2 H = NEUT) [id number] 13:22:00 Test Item Value Reference Range Interpretation Comments GLUCOSE (test code = URGLU) NEGATIVE MG/DL NEG-100 BILIRUBN (test code = URBILI) NEGATIVE NEGATIVE KETONE (test code = URKET) NEGATIVE MG/DL NEGATIVE BLOOD (test code = URBLD) NEGATIVE UR PH (test code = URPH) 7.5 5.0-7.5 PROTEIN (test code = URPRO) NEGATIVE MG/DL NEGATIVE NITRITES (test code = URNIT) NEGATIVE NEGATIVE UROBILINGEN (test code = 0.2 EU/DL 0.2-1.0 URURO) LEUKOCYT (test code = URLEU) NEGATIVE NEGATIVE UA COLOR (test code = UA YELLOW YELLOW COLOR) CLARITY (test code = CLARITY) CLEAR CLEAR SP GRAV (test code = URSPGRAV) 1.003 1.000-1.025 UAMICRO (test code = UAMICRO) NO SPINE LUMBAR [id number] 13:32:[address] [id number] IMAGING REPORTPatient Name: Amaris HAYNES of Service: [id number]: [phone] Sex: F Order #: [id number] [facility] 1965 [facility] Number: [id number] Record Number: [id number] Hospital Number: [id number] Physician: MICHELLE YEOrdering Physician: LAURENCE HONG SPINE [...] 1:29 PMLegally authenticated by JENNIFER Daniels 2017-10-16 13:29:[id number] 12:33:00 Test Item Value Reference Range Interpretation Comments GLUCOSE (test code = URGLU) NEGATIVE MG/DL NEG-100 BILIRUBN (test code = URBILI) NEGATIVE NEGATIVE KETONE (test code = URKET) NEGATIVE MG/DL NEGATIVE BLOOD (test code = URBLD) NEGATIVE UR PH (test code = URPH) 5.5 5.0-7.5 PROTEIN (test code = URPRO) NEGATIVE MG/DL NEGATIVE NITRITES (test code = URNIT) NEGATIVE NEGATIVE UROBILINGEN (test code = 0.2 EU/DL 0.2-1.0 URURO) LEUKOCYT (test code = URLEU) NEGATIVE NEGATIVE UA COLOR (test code = UA YELLOW YELLOW COLOR) CLARITY (test code = CLARITY) CLEAR CLEAR SP GRAV (test code = URSPGRAV) 1.010 1.000-1.025 UAMICRO (test code = UAMICRO) NO WBC (test code = URWBC) 1 /HPF 0-5 RBC (test code = URRBC) 1 /HPF 0-2 CASTS (test code = CAST) 0 /LPF 0-3 UR EPI (test code = EPI) 25 /LPF BACTERIA (test code = NEGATIVE NONE BACTERIA) [id number]& [id number] 06:46:50CHEST 2 VIEWREASON FOR STUDY: [id number]:The heart and mediastinum are within normal limits. Minor linearscarring or atelectasis is noted involving the right infrahilar region.Lungs appear slightly hyperinflated. Bony structures appear intact. . No other significant findings. IMPRESSION: Minor linear scarring or atelectasis involving the right infrahilarregion. Chest is otherwise clear.
[2019-12-23] MEDS ORDERED: MORPHINE 4 MG/ML SYR ONE (11:49)
[2019-12-23] MEDS ORDERED: ONDANSETRON 4 MG (ODT) TAB ONE (11:49)
--- NOTE | 2019-12-23 11:52 | RAD REPORT ---
EXAM DESCRIPTION: CT - Abdomen Pelvis Wo Contrast - 12/23/2019 11:35 am CLINICAL HISTORY: Abdominal pain COMPARISON: None TECHNIQUE: Computed axial tomography of the abdomen and pelvis was obtained. IV and oral contrast we re not requested. All CT scans are performed using dose optimization technique as appropriate and may include automated exposure control or mA/KV adjustment according to patient size. FINDINGS: The evaluation of solid organs, vessels and bowel is limited secondary to the lack of con trast administration. The liver, spleen, pancreas, adrenals and kidneys appear grossly normal. There is no evidence of diverticulitis. Hysterectomy. Cholecystectomy IMPRESSION: No acute abnormality is displayed.
--- NOTE | 2019-12-23 14:18 | RAD REPORT ---
EXAM DESCRIPTION: MRI - Lumbar Spine Wo Thomas - 12/23/2019 1:45 pm CLINICAL HISTORY: low back pain, bowel incontinence COMPARISON: No comparisons TECHNIQUE: Sagittal T1-weighted, T2-weighted and T2-STIR weighted sequences were obtained. Axial T1 -weighted and heavily T2-weighted sequenceswere obtained through the lumbar disc levels. FINDINGS: Lumbar bodies are normal in height and alignment. No suspicious marrow replacing pattern. Scattered fatty degenerative changes are present. There are active marrow edema changes along the ri ght side of the L4-5 disc level at the endplates. Conus is normal with no clumping or thickening of the cauda equina. T12-L1 level: No significant findings. L1-2 level: No significant findings. L2-3 level: Disc is desiccated with slight loss in disc height. Prominent anterior endplate spurring and protruding disc material. In the midline central canal and extending into the left exit foramen t here is prominent disc herniation. This is 5 mm AP x 16 mm CC by 13 mm TR. No central spinal stenosis present. Patient does have moderate severity left foraminal stenosis from the protrusion of disc mat erial. Facet degenerative changes minimal. No right foraminal stenosis. L3-4 level: Early desiccation change. No other significant finding. L4-5 level: Disc is desiccated with minimal loss in disc height. A small midline annular fissure is p resent. There is a minimal bulging of disc material across the central canal and into each exit tia en. No significant left foraminal encroachment. Central canal is 10 mm. Right foraminal encroachment is mild with perineural fat still surrounding the exiting nerve roots. L5-S1 level: Disc is desiccated with central canal disc herniation 5 mm AP x 11 mm CC x 14 mm TR. The herniated disc material contacts and posteriorly displaces the S1 nerve roots. Central spinal stenos is is present down to 7 mm. No significant foraminal encroachment. IMPRESSION: L5-S1 central canal disc herniation contacting and displacing the S1 nerve root sleeves. Central canal is stenotic to 7 mm. No foraminal encroachment. L2-3 disc herniation without central spinal stenosis. Patient has moderately severe left foraminal st enosis from protruding disc material. No abnormality involving the conus near the thoracolumbar junction. Fatty marrow degenerative changes in the L4-5 disc level. No aggressive marrow process in any vertebr ae.
--- NOTE | 2019-12-23 15:18 | ER ---
Nurse's Notes [facility] Name: Bárbara Beebe Age: 54 yrs Sex: Female : 1965 Arrival Date: 12/23/2019 Time: 10:42 Bed 13 Private MD: Diagnosis: Sciatica, left side Presentation: 12/22 10:56 Chief complaint: Patient states: had a fall 6 weeks ago, left hip keeps popping and now iw has tingling down her spine and left leg X 10 days, had xrays done December 20, was told she probably needed an MRI. Coronavirus screen: Proceed with normal triage. Patient denies a cough. Patient denies shortness of breath or difficulty breathing. Patient denies measured and/or subjective temperature greater than 100.4F prior to today's visit. Patient denies travel on a cruise ship or to a country the [facility] currently lists as an affected area. Patient denies contact with known and/or suspected case of COVID-19. Ebola Screen: Patient negative for fever greater than or equal to 101.5 degrees Fahrenheit, and additional compatible Ebola Virus Disease symptoms Patient denies exposure to infectious person. Patient denies travel to an Ebola-affected area in the 21 days before illness onset. No symptoms or risks identified at this time. Initial Sepsis Screen: Does the patient meet any 2 criteria? No. Patient's initial sepsis screen is negative. Does the patient have a suspected source of infection? No. Patient's initial sepsis screen is negative. Risk Assessment: Do you want to hurt yourself or someone else? Patient reports no desire to harm self or others. Onset of symptoms was October 2019. 10:56 Method Of Arrival: Ambulatory iw 10:56 Acuity: ANGELA 3 iw Historical: - Allergies: 10:59 No Known Allergies; iw - Home Meds: 10:59 trazodone 50 mg Oral tab nightly [Active]; iw - PMHx: 10:59 COPD; Crohn's; Hypertension; psoriasis; iw - PSHx: 10:59 Appendectomy; Hysterectomy; Tonsillectomy; iw - Immunization history:: Adult Immunizations up to date. - Social history:: Smoking status: Patient reports the use of cigarette tobacco products, smokes one-half pack cigarettes per day. Screenin:45 Abuse screen: Denies threats or abuse. Denies injuries from another. Nutritional jl7 screening: No deficits noted. Tuberculosis screening: No symptoms or risk factors identified. Fall Risk None identified. Assessment: 11:30 General: Appears in no apparent distress. uncomfortable, Behavior is calm, cooperative, jl7 appropriate for age. Pain: Complains of pain in low back area Pain radiates to thoracic area and left leg. Neuro: Level of Consciousness is awake, alert, obeys commands, Oriented to person, place, time, situation. Cardiovascular: Patient's skin is warm and dry. Respiratory: Airway is patent Respiratory effort is even, unlabored, Respiratory pattern is regular, symmetrical. Derm: Skin is pink, warm \T\ dry. 12:41 Reassessment: Patient appears in no apparent distress at this time. Patient and/or jl7 family updated on plan of care and expected duration. Pain level reassessed. Patient is alert, oriented x 3, equal unlabored respirations, skin warm/dry/pink. pain reduced to 6/10. 13:53 Reassessment: Patient appears in no apparent distress at this time. No changes from jl7 previously documented assessment. Patient and/or family updated on plan of care and expected duration. Pain level reassessed. Patient is alert, oriented x 3, equal unlabored respirations, skin warm/dry/pink. Vital Signs: 10:56 BP 152 / 97; Pulse 92; Resp 16; Temp 99.0; Pulse Ox 98% on R/A; Weight 70.31 kg; Height iw 5 ft. 2 in. (157.48 cm); Pain 7/10; 11:45 BP 146 / 86; Pulse 74; Resp 16; Pulse Ox 99% ; Pain 7/10; jl7 12:34 BP 133 / 87; Pulse 70; Resp 16; Pulse Ox 100% ; Pain 6/10; jl7 13:53 BP 130 / 85; Pulse 79; Resp 17; Pulse Ox 100% ; jl7 15:00 BP 125 / 83; Pulse 75; Resp 16; Pulse Ox 100% ; ca1 10:56 Body Mass Index 28.35 (70.31 kg, 157.48 cm) iw ED Course: 10:42 Patient arrived in ED. ag5 10:58 Triage completed. iw 10:59 Arm band placed on. iw 11:01 Verónica Jacob RN is Primary Nurse. jl7 11:03 Mickail, Nate, PA is PHCP. [facility] 11:03 Toñito Baldwin MD is Attending Physician. [facility] 11:38 CT Abd/Pelvis - Without Contrast In Process Unspecified. EDMS 11:45 Patient has correct armband on for positive identification. Bed in low position. Call jl7 light in reach. Side rails up X2. Pulse ox on. NIBP on. 13:45 MRI Lumbar Spine wo Con In Process Unspecified. EDMS 15:38 No provider procedures requiring assistance completed. Patient did not have IV access ca1 during this emergency room visit. Administered Medications: 11:45 Drug: Zofran (Ondansetron) 4 mg Route: PO; jl7 15:38 Follow up: Response: No adverse reaction ca1 11:47 Drug: morphine 4 mg Route: IM; Site: right deltoid; jl7 12:30 Follow up: Response: No adverse reaction; Pain is decreased ca1 Outcome: 15:17 Discharge ordered by MD. [facility] 15:38 Discharged to home ambulatory. ca1 15:38 Condition: stable 15:38 Discharge instructions given to patient, Instructed on discharge instructions, follow up and referral plans. medication usage, Demonstrated understanding of instructions, follow-up care, medications, Prescriptions given X 2. 15:38 Patient left the ED. ca1 Signatures: Dispatcher [employer] EDTN Nate Hansen PA PA Lien Gant, RN Verónica Bearden RN RN jl7 Dorys Singh RN RN ca1 Lynnette Zepeda ag5 Corrections: (The following items were deleted from the chart) 12:43 12:34 BP 140 / 86; Pulse 70bpm; Resp 16bpm; Pulse Ox 100%; Pain 6/10; jl7 jl7
--- NOTE | 2019-12-23 15:19 | EDPHYS ---
Physician Documentation [facility] Name: Bárbara Beebe Age: 54 yrs Sex: Female : 1965 Arrival Date: 12/23/2019 Time: 10:42 Bed 13 Private MD: ED Physician Toñito Baldwin HPI: 12/22 11:22 This 54 yrs old Female presents to ER via Ambulatory with complaints of Hip jmm Pain, Low Back Pain, Leg Pain. 11:22 The patient or guardian reports pain. Onset: The symptoms/episode began/occurred jmm acutely, 8 week(s) ago. Modifying factors: The symptoms are alleviated by nothing, the symptoms are aggravated by any movement. This is a 54 year old female with a history of COPD, Crohns, HTN, that presents to the ED with complaints of lower back pain which radiates down the left hip. Patient states she injured herself approx 2 months ago and since has had ongoing pain. Denies fever, weakness. . Historical: - Allergies: 10:59 No Known Allergies; iw - Home Meds: 10:59 trazodone 50 mg Oral tab nightly [Active]; iw - PMHx: 10:59 COPD; Crohn's; Hypertension; psoriasis; iw - PSHx: 10:59 Appendectomy; Hysterectomy; Tonsillectomy; iw - Immunization history:: Adult Immunizations up to date. - Social history:: Smoking status: Patient reports the use of cigarette tobacco products, smokes one-half pack cigarettes per day. ROS: 11:22 Constitutional: Negative for fever, chills, and weight loss, Cardiovascular: Negative jmm for chest pain, palpitations, and edema, Respiratory: Negative for shortness of breath, cough, wheezing, and pleuritic chest pain. 11:22 Back: Positive for pain at rest, pain with movement. 11:22 MS/extremity: Positive for pain. 11:22 All other systems are negative. Exam: 11:22 Constitutional: This is a well developed, well nourished patient who is awake, alert, jmm and in no acute distress. Head/Face: atraumatic. Eyes: EOMI, no conjunctival erythema appreciated ENT: Moist Mucus Membranes Neck: Trachea midline, Supple Chest/axilla: Normal chest wall appearance and motion. Cardiovascular: Regular rate and rhythm. No edema appreciated Respiratory: Normal respirations, no respiratory distress appreciated Abdomen/GI: Non distended, soft 11:22 Back: ROM is painful, with all movement, vertebral tenderness, is appreciated at L1, L2 and L3. 11:22 Musculoskeletal/extremity: ROM: intact in all extremities, Circulation is intact in all extremities. Sensation intact. 11:22 Skin: Appearance: Color: normal in color. 11:22 Neuro: Orientation: is normal, Mentation: is normal, Memory: is normal. 11:22 Psych: Behavior/mood is pleasant, cooperative. Vital Signs: 10:56 BP 152 / 97; Pulse 92; Resp 16; Temp 99.0; Pulse Ox 98% on R/A; Weight 70.31 kg; Height iw 5 ft. 2 in. (157.48 cm); Pain 7/10; 11:45 BP 146 / 86; Pulse 74; Resp 16; Pulse Ox 99% ; Pain 7/10; jl7 12:34 BP 133 / 87; Pulse 70; Resp 16; Pulse Ox 100% ; Pain 6/10; jl7 13:53 BP 130 / 85; Pulse 79; Resp 17; Pulse Ox 100% ; jl7 15:00 BP 125 / 83; Pulse 75; Resp 16; Pulse Ox 100% ; ca1 10:56 Body Mass Index 28.35 (70.31 kg, 157.48 cm) iw MDM: 11:22 Patient medically screened. justice 15:15 Data reviewed: vital signs, nurses notes. Counseling: I had a detailed discussion with sajan the patient and/or guardian regarding: the historical points, exam findings, and any diagnostic results supporting the discharge/admit diagnosis, lab results, radiology results, the need for outpatient follow up, to return to the emergency department if symptoms worsen or persist or if there are any questions or concerns that arise at home. ED course: Patient advised to follow up with pain management/neurosurgery for further evaluation. I discussed MRI with radiologist. Negative for an acute emergent process. I discussed the findings with the patient. Will follow up with pcp with results. . 12/22 11:24 Order name: CT Abd/Pelvis - Without Contrast; Complete Time: 12:04 justice 12/22 12:37 Order name: MRI Lumbar Spine wo Con; Complete Time: 14:[address] [facility] Administered Medications: 11:45 Drug: Zofran (Ondansetron) 4 mg Route: PO; jl7 15:38 Follow up: Response: No adverse reaction ca1 11:47 Drug: morphine 4 mg Route: IM; Site: right deltoid; jl7 12:30 Follow up: Response: No adverse reaction; Pain is decreased ca1 Disposition: 17:06 Co-signature as Attending Physician, Toñito Baldwin MD I agree with the assessment and kdr plan of care. Disposition: 12/23/19 15:17 Discharged to Home. Impression: Sciatica, left side. - Condition is Stable. - Discharge Instructions: Sciatica. - Prescriptions for Prednisone 20 mg Oral Tablet - take 3 tablet by ORAL route once daily for 5 days; 15 tablet. Zanaflex 4 mg Oral Tablet - take 1 tablet by ORAL route every 8 hours As needed; 20 tablet. levalbuterol HCl 0.63 mg/3 mL Inhalation solution for nebulization - inhale 3 milliliter by NEBULIZATION route every 8 hours; 1 box. - Medication Reconciliation Form, Thank You Letter, Antibiotic Education, Prescription Opioid Use form. - Follow up: Private Physician; When: 2 - 3 days; Reason: Recheck today's complaints, Continuance of care, Re-evaluation by your physician. Signatures: Dispatcher [employer] EDToñito Jean MD MD kdr Mickail, Joel, PA PA [facility] Lien Massey, FRANKI DOAN iw Verónica Jacob RN RN jl7 Dorys Singh RN RN ca1 Corrections: (The following items were deleted from the chart) 15:38 15:17 12/23/2019 15:17 Discharged to Home. Impression: Sciatica, left side. Condition ca1 is Stable. Forms are Medication Reconciliation Form, Thank You Letter, Antibiotic Education, Prescription Opioid Use. Follow up: Private Physician; When: 2 - 3 days; Reason: Recheck today's complaints, Continuance of care, Re-evaluation by your physician. sajan
[2019-12-23 15:53] VITALS: TEMP 99
[2019-12-23 15:56] VITALS: O2SAT 100
[2019-12-23 15:58] VITALS: BP 125/83
== END 2019-12-23 15:38 | disposition home or self-care (01) ==
LOC: ER 10:41
DX: M54.32 Sciatica, left side (principal); F17.210 Nicotine dependence, cigarettes, uncomplicated; I10 Essential (primary) hypertension
CPT/HCPCS: 72148; 74176; 96372; 99284

== ENCOUNTER 2020-08-13 12:09 | Emergency (ER) | payer SELFPAY ==
--- OUTSIDE RECORDS SUMMARY | 2020-08-13 12:12 | XMS REPORT | Continuity of Care Document ---
:1965 Author Organization [facility] t Address [address] [place] [address] Care Team Providers Name Role Phone [facility] Primary Care Physician Unavailable Taylor Taveras MD Attending Clinician Problems This patient has no known problems. Allergies, Adverse Reactions, Alerts This patient has no known allergies or adverse reactions. Medications This patient has no known medications. Procedures This patient has no known procedures. Encounters Start End Encounter Admission Attending Care Care Encounter Source Date/Time Date/Time Type Type Clinicians Facility Department ID 2020-04-04 2020-04-04 Office LUCIUS Taveras [id number] 10:33:36 10:48:36 Visit [facility] [id number] [place] [id number] [place] [id number] Medical [facility] Office Building 2017-03-26 2017-03-26 Emergency [facility] [id number] Medical 14:55:00 14:55:00 [facility] 2017-03-07 2017-03-07 Emergency E [facility] [id number] Medical 17:01:00 17:01:00 [facility] 2017-02-22 2017-02-22 Emergency E [facility] [id number] Medical 11:40:00 11:40:00 [facility] Results Test Description Test Time Test Comments Results Result Sourc e Comments XR Abdomen KUB 1 2019-03-15 Patient: CARVER, View 18:15:18 KEKE Date/Time03/15/2019 18:02 CDTReason for ExamAbdominal [...] /LPF 0-20 A Urinalysis with Culture, if [id number] 16:19:42 Test Item Value Reference Range Interpretation [...] = UA Micro Ind?) rule GL_SET_UA_MICRO _IND [id number] 16:13:11 Test Item Value Reference Range Interpretation Comments Amylase Level (test code = 53 IntlUnit/L 25-115 Amylase Level) Comprehensive Metabolic [id number] 16:13:11 Test Item Value Reference Range Interpretation [...] = AST) 20 IntlUnit/L 15-37 Comprehensive Metabolic [id number] 16:13:11 Test Item Value Reference Range Interpretation [...] >60 mL/min/1.73 m2 N AA) Comprehensive Metabolic [id number] 16:13:11 Test Item Value Reference Range Interpretation [...] >60 mL/min/1.73 m2 N eGFR Non-AA) Automated [id number] 16:12:15 Test Item Value Reference Range Interpretation Comments Neutro Auto (test code = Neutro Auto) 55.4 % N Lymph Auto (test code = Lymph Auto) 36.3 % N Lanier Auto (test code = Lanier Auto) 5.5 % N Eos, Auto (test code = Eos, Auto) 1.9 % N Basophil Auto (test code = Basophil 0.9 % N Auto) Neutro Absolute (test code = Neutro 4.9 x10 2.7-7.3 Absolute) Lymph Absolute (test code = Lymph 3.2 x10 0.8-3.5 Absolute) Lanier Absolute (test code = Lanier 0.5 x10 0.3-0.9 Absolute) Eos Absolute (test code = Eos 0.2 x10 0.0-0.3 Absolute) Baso Absolute (test code = Baso 0.1 x10 0.0-0.1 Absolute) Complete Blood Count with [id number] 16:12:14 Test Item Value Reference Range Interpretation [...] created by = Slide Review) GL_SET_SLIDE _REVIEW_A [facility] Comprehensive Metabolic [id number] 14:21:14 Test Item Value Reference Range Interpretation [...] = AST) 22 IntlUnit/L 15-37 Comprehensive Metabolic [id number] 14:21:14 Test Item Value Reference Range Interpretation [...] >60 mL/min/1.73 m2 N AA) Comprehensive Metabolic [id number] 14:21:14 Test Item Value Reference Range Interpretation [...] m2 N eGFR Non-AA) Pro B Natriuretic [id number] 14:05:15 Test Item Value Reference Range Interpretation [...] f ailure likely Complete Blood Count with [id number] 13:59:12 Test Item Value Reference Range Interpretation [...] = Slide Review) GL_SET_SLIDE _REVIEW_A UTO Automated [id number] 13:59:12 Test Item Value Reference Range Interpretation Comments Neutro Auto (test code = Neutro Auto) 68.5 % N Lymph Auto (test code = Lymph Auto) 24.5 % N Lanier Auto (test code = Lanier Auto) 5.6 % N Eos, Auto (test code = Eos, Auto) 1.0 % N Basophil Auto (test code = Basophil 0.4 % N Auto) Neutro Absolute (test code = Neutro 8.2 x10 2.7-7.3 H Absolute) Lymph Absolute (test code = Lymph 2.9 x10 0.8-3.5 Absolute) Lanier Absolute (test code = Lanier 0.7 x10 0.3-0.9 Absolute) Eos Absolute (test code = Eos 0.1 x10 0.0-0.3 Absolute) Baso Absolute (test code = Baso 0.0 x10 0.0-0.1 Absolute) XR Chest 2 [id number] 13:41:47Patient: KEKE HAYNES Date/Time02/24/201913:18 CDTReason for ExamShortness [...] (Electronic Signature): 02/24/2019 1:41 pmXR Chest 2 [id number] 10:31:38Patient: KEKE HAYNES Date/Time10/06/2018 10:23 CDTReason for ExamCoughReportXR CHEST 2 VIEWSDIAGNOSIS: Cough and chest painThe heart, lungs and bony thorax are unremarkable and unchanged since 09/22/2018. Hyperinflation suggesting early COPD.IMPRESSION: No active disease and no change since 12/07/2018. Final Dictated by: MD Denton Michael JackDictated DT/TM: 10/06/2018 10:30 amSigned by: MD Denton Michael JackSigned [...] Ramon JulioDictated DT/TM: 09/22/2018 2:38 pmSigned by: Roberto Carlos, MD, Wei JulioSigned (Electronic Signature): 09/22/2018 2:38 pmXR Ankle Complete 3+ Views [id number] 07:53:52Patient: KEKE HAYNES Date/Time09/04/2018 22:40 CSTReason for [...] SamerDictated DT/TM: 09/05/2018 7:49 amSigned by: MD Arroyo SamerSigned (Electronic Signature): 09/05/2018 7:53 amXR Foot Complete 3+ Views [id number] 07:53:39Patient: KEKE HAYNES Date/Time09/04/2018 22:40 CSTReason for [...] 09/05/2018 7:53 amCT Abdomen and Pelvis w/o [id number] 14:15:18Patient: KEKE HAYNES Date/Time07/09/2018 13:45 CSTReason for [...] MD Leary Craig ASigned (Electronic Signature): 07/09/2018 2:[id number] 18:24:00 Test Item Value Reference Range Interpretation [...] BACTERIA (test code = NEGATIVE NONE BACTERIA) [id number] 18:16:00 Test Item Value Reference Range Interpretation [...] glucose = GLUCOSE) normal <100 MG/ DL- [place] recommendation* * CALCIUM (test [...] GFR) mL/min/1.73m2 mL/min/1.73m2 is considered norm al. [id number] 18:16:00 Test Item Value Reference Range Interpretation Comments LIPASE (test code = LIPA) 95 U/L 23-300 [id number] 18:07:00 Test Item Value Reference Range Interpretation [...] 3.5 K/UL 1.2-7.2 = NEUT) OCCULT BLOOD, [id number] 06:35:00 Test Item Value Reference Range Interpretation Comments OCCULT BLOOD FECES (test code = NEGATIVE NEGATIVE OCCBLFEC) LOT# CRD (test code = LOT# CRD) [id number] EXP CRD (test code = EXP CRD) 10-20 LOT# DVL (test code = LOT# DVL) 76863 EXP DVL (test code = EXP DVL) 7- INT QC (test code = INT QC) PASSED [id number] 00:14:00 Test Item Value Reference Range Interpretation [...] glucose = GLUCOSE) normal <100 MG/ DL- [place] [employer] recommendation* * CALCIUM (test [...] GFR) mL/min/1.73m2 mL/min/1.73m2 is considered norm al. [id number] 00:14:00 Test Item Value Reference Range Interpretation Comments LIPASE (test code = LIPA) 134 U/L 23-300 ABDOMEN 2 [id number] 21:18:[address] [id number] IMAGING REPORTPatient Name: Amaris HAYNES of Service: [id number]: 52 Sex: F Order #: [id number] Room: [facility]: 1965 X-Ray Number: [id number] Record Number: [id number] Hospital Number: [id number] Physician: YANNA HAROOrdering Physician: Mallika MAY.History: Abdomen [...] PMLegally authenticated by CLARA Talley 2018-04-04 21:16:02 [id number] 17:07:00 Test Item Value Reference Range Interpretation [...] (test code 5.6 K/UL 1.2-7.2 = NEUT) [id number] 17:06:00 Test Item Value Reference Range Interpretation [...] (test code = UAMICRO) NO CT ABDOMEN/PELVIS [id number] 16:28:[address] [id number] IMAGING REPORTPatient Name: Amaris HAYNES of Service: [id number]: 52 Sex: F Order #: [id number] Room: [facility]: 1965 X-Ray Number: [id number] Record Number: [id number] Hospital Number: [id number] Physician: YANNA HAROOrdering Physician: DANETTE CLARK ABDOMEN/PELVIS [...] 4:25 PMLegally authenticated by GEORGIA WISEMAN 2018-04-01 16:25:[id number] 14:29:00 Test Item Value Reference Range Interpretation Comments BLOOD TYPE (test code = TYPE) O Rh Positive ANTIBODY SCREEN (test code = NEGATIVE NEGATIVE SCREEN) PROTHROMBIN TIME WITH [id number] 14:13:00 Test Item Value Reference Range Interpretation Comments PROTHROMBIN TIME 12.5 SECONDS 12.0-14.6 INR Usual R john = 2 (test code = PT) to 3 for pr evention of deep vein thrombosis (DVT ) INR (test code = INR) 0.9 [id number] 14:13:00 Test Item Value Reference Range Interpretation Comments PTT (test code = 37.8 SECONDS 24.4-36.3 H HEPARIN THE RAPEUTIC PTT) RANGE 57-92 SEC ONDS [id number] 14:00:00 Test Item Value Reference Range Interpretation [...] glucose = GLUCOSE) normal <100 MG/ DL- [place] recommendation* * CALCIUM (test [...] GFR) mL/min/1.73m2 mL/min/1.73m2 is considered norm al. [id number] 14:00:00 Test Item Value Reference Range Interpretation Comments LIPASE (test code = LIPA) 40 U/L 23-300 [id number] 13:51:00 Test Item Value Reference Range Interpretation [...] code 8.8 K/UL 1.2-7.2 H = NEUT) [id number] 13:22:00 Test Item Value Reference Range Interpretation [...] (test code = UAMICRO) NO SPINE LUMBAR [id number] 13:32:[address] [id number] IMAGING REPORTPatient Name: Amaris HAYNES of Service: [id number]: 51 Sex: F Order #: [id number] [facility] 1965 [facility] Number: [id number] Record Number: [id number] Hospital Number: [id number] Physician: Abelardo YEing Physician: LAURENCE HONG SPINE 5 VIEWS:CLINICALHISTORY: Back [...] 1:29 PMLegally authenticated by JENNIFER Daniels 2017-10-16 13:29:[id number] 12:33:00 Test Item Value Reference Range Interpretation [...] BACTERIA (test code = NEGATIVE NONE BACTERIA) 14824& [id number] 06:46:50CHEST 2 VIEWREASON FOR STUDY: [id number]:The heart and mediastinum are within normal limits. Minor linearscarring or atelectasis is noted involving the right infrahilar region.Lungs appear slightly hyperinflated. Bony structures appear intact. . No other significant findings. IMPRESSION: Minor linear scarring or atelectasis involving the right infrahilarregion. Chest is otherwise clear.
[2020-08-13 13:10] LABS: Absolute Lymphocytes (CBC) 2.9 K/uL (0.7-4.9); Basophils % 0.9 % (0-1.3); Hematocrit 44.3 % (36.0-45.0); Lymphocytes % 29.2 % (15.3-44.8); MPV 7.8 fL (7.6-11.3)
[2020-08-13] MEDS ORDERED: METHYLPREDNISOLONE 125 MG INJ ONE (13:20)
[2020-08-13] MEDS ORDERED: ALBUTEROL 2.5 MG/3 ML NEB SOL ONE (13:21)
[2020-08-13] MEDS ORDERED: IPRATROPIUM BROM 0.5MG/2.5ML ONE (13:21)
[2020-08-13] MEDS ORDERED: Magnesium Sulfate 2gm IVPB 2 G/50 ML BAG IV ONE (13:21)
[2020-08-13 13:24] LABS: BUN Blood Urea Nitrogen 10 mg/dL (7-18); Bicarbonate 26 mmol/L (21-32); Glucose Level 85 mg/dL (74-106); Potassium 4.2 mmol/L (3.5-5.1); Sodium Level 141 mmol/L (136-145)
[2020-08-13 14:01] LABS: Urine Blood TRACE (NEG); Urine Glucose NEGATIVE (NEG); Urine Protein NEGATIVE (NEG)
[2020-08-13 14:20] LABS: SARS-COV-2 RT PCR NEGATIVE (NEGATIVE)
--- NOTE | 2020-08-13 15:19 | RAD REPORT ---
EXAM DESCRIPTION: RAD - Chest Single View - 08/13/2020 2:38 pm CLINICAL HISTORY: Dyspnea;Cough COMPARISON: Two-view chest July 2019 TECHNIQUE: AP portable chest image was obtained 08/13/2020 2:38 pm . FINDINGS: No focal lung parenchymal process seen. Interstitial pattern is mildly prominent but stabl e. Heart and vasculature are normal. No measurable pleural effusion and no pneumothorax. No acute bon y abnormality seen. No acute aortic findings suspected. IMPRESSION: No acute cardiopulmonary process. No significant change from the comparison study.
--- NOTE | 2020-08-13 15:21 | ER ---
Nurse's Notes [facility] Name: Bárbara Beebe Age: 54 yrs Sex: Female : 1965 Arrival Date: 08/13/2020 Time: 12:10 Bed 13 Private MD: Diagnosis: Chronic obstructive pulmonary disease with (acute) exacerbation Presentation: 08/13 12:13 Chief complaint: Patient states: HX of COPD, SOB 2 - 3 days, a little cough. Exposure ca1 to Covid-19. Denies fever. Reports colds sweats and chills. Pain on on the R upper back started 3 days [employer]. Coronavirus screen: Client denies travel out of the [place] in the last 14 days. chills, cough unrelated to allergies, shortness of breath, Client presents with at least one sign or symptom that may indicate coronavirus-19. Standard/surgical mask placed on the client. Provider contacted for isolation considerations. Ebola Screen: Patient negative for fever greater than or equal to 101.5 degrees Fahrenheit, and additional compatible Ebola Virus Disease symptoms Patient denies exposure to infectious person. Patient denies travel to an Ebola-affected area in the 21 days before illness onset. No symptoms or risks identified at this time. Initial Sepsis Screen: Does the patient meet any 2 criteria? No. Patient's initial sepsis screen is negative. Does the patient have a suspected source of infection? No. Patient's initial sepsis screen is negative. Risk Assessment: Do you want to hurt yourself or someone else? Patient reports no desire to harm self or others. Onset of symptoms was August 10, 2020. 12:13 Method Of Arrival: Ambulatory ca1 12:13 Acuity: ANGELA 2 ca1 Triage Assessment: 13:33 General: Appears in no apparent distress. uncomfortable. Respiratory: Onset: The zb symptoms/episode began/occurred yesterday, the patient has moderate shortness of breath. Historical: - Allergies: 12:17 unknown steroid; ca1 - Home Meds: 12:17 meloxicam 15 mg oral tab 1 tab once daily [Active]; metoprolol succinate 50 mg oral ca1 Tb24 1 tab once daily [Active]; - PMHx: 12:17 COPD; Crohn's; Hypertension; psoriasis; ca1 - PSHx: 12:17 Appendectomy; Hysterectomy; Tonsillectomy; ca1 - Immunization history:: Flu vaccine is up to date. - Social history:: Smoking status: Patient reports the use of cigarette tobacco products, smokes one-half pack cigarettes per day. Screenin:34 Abuse screen: Denies threats or abuse. Denies injuries from another. Nutritional zb screening: No deficits noted. Tuberculosis screening: No symptoms or risk factors identified. Fall Risk None identified. Assessment: 12:31 General: Appears uncomfortable, Behavior is cooperative, anxious, Reports chills for zb 1-2 days, feeling ill for 1-2 days, fatigue for 1-2 days, Denies fever. Pain: Complains of pain in right mid back and right low back Pain does not radiate. Pain currently is 6 out of 10 on a pain scale. Quality of pain is described as aching, tender. Neuro: Cardiovascular: Heart tones S1 S2 present Capillary refill < 3 seconds in bilateral fingers Patient's skin is warm and dry. Respiratory: Airway is patent Respiratory effort is labored, Respiratory pattern is tachypnea Breath sounds with wheezes bilaterally. GI: Abdomen is round non-distended, Bowel sounds present X 4 quads. Abd is soft and non tender X 4 quads. Reports diarrhea, nausea, vomiting. : No signs and/or symptoms were reported regarding the genitourinary system. EENT: No signs and/or symptoms were reported regarding the EENT system. Derm: Skin is intact, is healthy with good turgor, Skin is dry, Skin is normal, Skin temperature is warm. Musculoskeletal: Circulation, motion, and sensation intact. Capillary refill < 3 seconds, in bilateral fingers. Range of motion: intact in all extremities. 13:22 Reassessment: Patient appears in no apparent distress at this time. Patient and/or zb family updated on plan of care and expected duration. Pain level reassessed. Patient is alert, oriented x 3, equal unlabored respirations, skin warm/dry/pink. pt receiving neb treatment at this time. 14:30 Reassessment: Patient appears in no apparent distress at this time. Patient and/or zb family updated on plan of care and expected duration. Pain level reassessed. Patient is alert, oriented x 3, equal unlabored respirations, skin warm/dry/pink. pt able to ambulate to restroom. c/o of body aches. Cardiovascular:. 15:30 Reassessment: Patient appears in no apparent distress at this time. Patient and/or zb family updated on plan of care and expected duration. Pain level reassessed. Patient is alert, oriented x 3, equal unlabored respirations, skin warm/dry/pink. 16:18 Reassessment: Patient appears in no apparent distress at this time. d/c instructions zb given. patient left ambulatory. gait steady. 16:20 Cardiovascular: Rhythm is regular. zb Vital Signs: 12:13 BP 147 / 73; Pulse 106; Resp 20; Temp 97.6(TE); Pulse Ox 98% on R/A; Weight 68.95 kg ca1 (R); Height 5 ft. 2 in. (157.48 cm) (R); Pain 5/10; 13:00 BP 130 / 70; Pulse 98; Resp 22; Pulse Ox 98% on R/A; zb 14:00 BP 141 / 90; Pulse 86; Resp 20; Pulse Ox 97% on R/A; zb 15:00 BP 116 / 74; Pulse 92; Resp 20; Pulse Ox 96% on R/A; zb 16:00 BP 118 / 80; Pulse 94; Resp 20; Pulse Ox 95% on R/A; zb 12:13 Body Mass Index 27.80 (68.95 kg, 157.48 cm) ca1 ED Course: 12:10 Patient arrived in ED. as 12:15 Triage completed. ca1 12:17 Arm band placed on right wrist. ca1 12:18 Delilah Perez FNP-C is [facility]. kb 12:18 Arnulfo Jackson MD is Attending Physician. kb 12:19 Kym Del Rosario RN is Primary Nurse. zb 12:34 Patient has correct armband on for positive identification. Bed in low position. Call zb light in reach. Pulse ox on. NIBP on. 12:50 Inserted saline lock: 20 gauge in right forearm, using aseptic technique. zb 14:38 Chest Single View XRAY In Process Unspecified. EDMS 16:20 No provider procedures requiring assistance completed. IV discontinued, intact, zb bleeding controlled, No redness/swelling at site. Pressure dressing applied. Administered Medications: 13:20 Drug: SOLU-Medrol 125 mg Route: IVP; Site: right femoral; zb 14:00 Follow up: Response: No adverse reaction zb 13:20 Drug: DuoNeb (3:1) (2.5 mg - 0.5 mg) 3 ml Route: Nebulizer; zb 14:00 Follow up: Response: No adverse reaction zb 13:21 Drug: Magnesium Sulfate 2 grams Route: IVPB; Infused Over: 2 hrs; Site: right forearm; zb 15:00 Follow up: Response: No adverse reaction; IV Status: Completed infusion; IV Intake: 50mlzb Intake: 15:00 IV: 50ml; Total: 50ml. zb Outcome: 15:20 Discharge ordered by MD. mars 16:21 Discharged to home ambulatory. zb 16:21 Condition: stable 16:21 Discharge instructions given to patient, Instructed on discharge instructions, follow up and referral plans. medication usage, covid precautions Demonstrated understanding of instructions, follow-up care, medications, Prescriptions given X 2. 16:22 Patient left the ED. zb Signatures: Dispatcher [employer] EDDelilah Wilson, AMITA YATES-Gudelia Brewer Cheryl RN Kym Conner RN RN zb
--- NOTE | 2020-08-13 15:22 | EDPHYS ---
Physician Documentation [facility] Name: Bárbara Beebe Age: 54 yrs Sex: Female : 1965 Arrival Date: 08/13/2020 Time: 12:10 Bed 13 Private MD: ED Physician Arnulfo Jackson HPI: 08/13 15:24 This 54 yrs old Female presents to ER via Ambulatory with complaints of kb Shortness Of Breath. 15:24 The patient has shortness of breath at rest, and the patient has a history of COPD. kb Onset: The symptoms/episode began/occurred 3 day(s) ago. Duration: The symptoms are continuous. The patient's shortness of breath is aggravated by exertion, is alleviated by nothing. Associated signs and symptoms: Pertinent positives: non-productive cough, Pertinent negatives: chest pain, productive cough, fever. Severity of symptoms: At their worst the symptoms were moderate in the emergency department the symptoms are unchanged. The patient has experienced similar episodes in the past, a few times. The patient has not recently seen a physician. Historical: - Allergies: 12:17 unknown steroid; ca1 - Home Meds: 12:17 meloxicam 15 mg oral tab 1 tab once daily [Active]; metoprolol succinate 50 mg oral ca1 Tb24 1 tab once daily [Active]; - PMHx: 12:17 COPD; Crohn's; Hypertension; psoriasis; ca1 - PSHx: 12:17 Appendectomy; Hysterectomy; Tonsillectomy; ca1 - Immunization history:: Flu vaccine is up to date. - Social history:: Smoking status: Patient reports the use of cigarette tobacco products, smokes one-half pack cigarettes per day. ROS: 12:26 Constitutional: Negative for fever, chills, and weight loss, Cardiovascular: Negative kb for chest pain, palpitations, and edema, Abdomen/GI: Negative for abdominal pain, nausea, vomiting, diarrhea, and constipation, Back: Negative for injury and pain, MS/Extremity: Negative for injury and deformity, Skin: Negative for injury, rash, and discoloration, Neuro: Negative for headache, weakness, numbness, tingling, and seizure. 12:26 Respiratory: Positive for cough, dyspnea on exertion, shortness of breath. Exam: 15:22 Constitutional: This is a well developed, well nourished patient who is awake, alert, kb and in no acute distress. Head/Face: Normocephalic, atraumatic. Chest/axilla: Normal chest wall appearance and motion. Nontender with no deformity. No lesions are appreciated. Cardiovascular: Regular rate and rhythm with a normal S1 and S2. No gallops, murmurs, or rubs. Normal PMI, no JVD. No pulse deficits. Abdomen/GI: Soft, non-tender, with normal bowel sounds. No distension or tympany. No guarding or rebound. No evidence of tenderness throughout. Skin: Warm, dry with normal turgor. Normal color with no rashes, no lesions, and no evidence of cellulitis. MS/ Extremity: Pulses equal, no cyanosis. Neurovascular intact. Full, normal range of motion. Neuro: Awake and alert, GCS 15, oriented to person, place, time, and situation. Cranial nerves II-XII grossly intact. Motor strength 5/5 in all extremities. Sensory grossly intact. Cerebellar exam normal. Normal gait. 15:22 Respiratory: mild respiratory distress is noted, Respirations: labored breathing, Breath sounds: decreased breath sounds, that are moderate, are located in both bases, wheezing: expiratory that is moderate, is scattered. Vital Signs: 12:13 BP 147 / 73; Pulse 106; Resp 20; Temp 97.6(TE); Pulse Ox 98% on R/A; Weight 68.95 kg ca1 (R); Height 5 ft. 2 in. (157.48 cm) (R); Pain 5/10; 13:00 BP 130 / 70; Pulse 98; Resp 22; Pulse Ox 98% on R/A; zb 14:00 BP 141 / 90; Pulse 86; Resp 20; Pulse Ox 97% on R/A; zb 15:00 BP 116 / 74; Pulse 92; Resp 20; Pulse Ox 96% on R/A; zb 16:00 BP 118 / 80; Pulse 94; Resp 20; Pulse Ox 95% on R/A; zb 12:13 Body Mass Index 27.80 (68.95 kg, 157.48 cm) ca1 MDM: 12:20 Patient medically screened. kb 12:27 Data reviewed: vital signs, nurses notes. Data interpreted: Pulse oximetry: on room air kb is 98 %. Interpretation: normal. 15:16 Counseling: I had a detailed discussion with the patient and/or guardian regarding: the kb historical points, exam findings, and any diagnostic results supporting the discharge/admit diagnosis, lab results, radiology results, the need for outpatient follow up, a family practitioner, to return to the emergency department if symptoms worsen or persist or if there are any questions or concerns that arise at home. 15:20 Response to treatment: the patient's symptoms have markedly improved after treatment. kb 08/13 12:27 Order name: CBC with Diff; Complete Time: 13:19 kb 08/13 12:27 Order name: Basic Metabolic Panel; Complete Time: 13:30 kb 08/13 12:27 Order name: Blood Culture Adult (2) kb 08/13 12:27 Order name: Lactate; Complete Time: 13:30 kb 08/13 12:27 Order name: Procalcitonin; Complete Time: 14:02 kb 08/13 13:31 Order name: Chest Single View XRAY; Complete Time: 15:21 kb 08/13 13:36 Order name: Urine Dipstick--Ancillary (enter results) eb 08/13 13:36 Order name: Urine Dipstick-Ancillary; Complete Time: 14:02 EDMS 08/13 14:21 Order name: COVID-19/FLU A+B; Complete Time: 14:22 EDMS 08/13 12:27 Order name: IV Start; Complete Time: 13:21 kb 08/13 13:04 Order name: Urine Dipstick-Ancillary (obtain specimen); Complete Time: 13:21 zb Administered Medications: 13:20 Drug: SOLU-Medrol 125 mg Route: IVP; Site: right femoral; zb 14:00 Follow up: Response: No adverse reaction zb 13:20 Drug: DuoNeb (3:1) (2.5 mg - 0.5 mg) 3 ml Route: Nebulizer; zb 14:00 Follow up: Response: No adverse reaction zb 13:21 Drug: Magnesium Sulfate 2 grams Route: IVPB; Infused Over: 2 hrs; Site: right forearm; zb 15:00 Follow up: Response: No adverse reaction; IV Status: Completed infusion; IV Intake: 50mlzb Disposition: 17:48 Co-signature as Attending Physician, Arnulfo Jackson MD. rn Disposition: 08/13/20 15:20 Discharged to Home. Impression: Chronic obstructive pulmonary disease with (acute) exacerbation. - Condition is Stable. - Discharge Instructions: Chronic Obstructive Pulmonary Disease Exacerbation. - Prescriptions for Prednisone 20 mg Oral Tablet - take 2 tablet by ORAL route once daily for 5 days; 10 tablet. Albuterol Sulfate 2.5 mg /3 mL (0.083 %) Inhalation Solution for Nebulization - inhale 1 unit by NEBULIZATION route every 8 hours As needed; 1 box. Albuterol Sulfate 90 mcg/actuation - inhale 1-2 puff by INHALATION route every 4-6 hours; 1 Inhaler. - Medication Reconciliation Form, Thank You Letter, Antibiotic Education, Prescription Opioid Use form. - Follow up: Emergency Department; When: As needed; Reason: Worsening of condition. Follow up: Private Physician; When: 2 - 3 days; Reason: Recheck today's complaints, Continuance of care, Re-evaluation by your physician. Signatures: Dispatcher [employer] EDAR Delilah Perez, MECHANICAL ENGINEERING TECHNOLOGIST-C MECHANICAL ENGINEERING TECHNOLOGIST-CkArnulfo Garcia MD MD rn Acob, FRANKI Saul RN, Z[place]or[place], RN RN zb Corrections: (The following items were deleted from the chart) 13:17 12:39 CORONAVIRUS+MR.LAB.BRZ ordered. [facility] 16:22 15:20 08/13/2020 15:20 Discharged to Home. Impression: Chronic obstructive pulmonary zb disease with (acute) exacerbation. Condition is Stable. Forms are Medication Reconciliation Form, Thank You Letter, Antibiotic Education, Prescription Opioid Use. Follow up: Emergency Department; When: As needed; Reason: Worsening of condition. Follow up: Private Physician; When: 2 - 3 days; Reason: Recheck today's complaints, Continuance of care, Re-evaluation by your physician. kb
[2020-08-13 16:26] VITALS: TEMP 97.6
[2020-08-13 16:31] VITALS: BP 118/80; O2SAT 95
== END 2020-08-13 16:22 | disposition home or self-care (01) ==
LOC: ER 12:09
DX: J44.1 Chronic obstructive pulmonary disease with (acute) exacerbation (principal); Z20.822 Contact with and (suspected) exposure to COVID-19; I10 Essential (primary) hypertension; F17.210 Nicotine dependence, cigarettes, uncomplicated; Z88.8 Allergy status to other drugs, medicaments and biological substances
CPT/HCPCS: 0240U; 36415; 71045; 80048; 81003; 83605; 84145; 85025; 87040; 96365; 96366; 96375; 99284; J2930; J3475

== ENCOUNTER 2020-10-02 11:55 | Emergency (ER) | payer SELFPAY ==
--- OUTSIDE RECORDS SUMMARY | 2020-10-02 11:58 | XMS REPORT | Continuity of Care Document ---
:1965 Author Organization [facility] t Address [address] [place] [address] Care Team Providers Name Role Phone [facility]ERT[facility] [place] Primary Care Physician Unavailable Nitin WEBB, Taylor Attending Clinician Problems This patient has no known problems. Allergies, Adverse Reactions, Alerts This patient has no known allergies or adverse reactions. Medications This patient has no known medications. Procedures This patient has no known procedures. Encounters Start End Encounter Admission Attending Care Care Encounter Source Date/Time Date/Time Type Type Clinicians Facility Department ID 2020-04-04 2020-04-04 Office LUCIUS Taveras [id number] 10:33:36 10:48:36 Visit [facility] [id number] [place] [id number] [place] [id number] Medical [facility] Office Building 2017-03-26 2017-03-26 Emergency E [facility] [id number] Medical 14:55:00 14:55:00 [facility] 2017-03-07 2017-03-07 Emergency E [facility] [id number] Medical 17:01:00 17:01:00 [facility] 2017-02-22 2017-02-22 Emergency E [facility] [id number] Medical 11:40:00 11:40:00 [facility] Results Test Description Test Time Test Comments [...] abdomen. Final Dictated by: MD Corrie, Rocky Melendezctated DT/TM: 03/15/2019 6:14 pmSigned by: MD Denton [...] /LPF 0-20 A Urinalysis with Culture, if [id number] 16:19:42 Test Item Value Reference Range Interpretation [...] = UA Micro Ind?) rule GL_SET_UA_MICRO _IND [id number] 16:13:11 Test Item Value Reference Range Interpretation Comments Amylase Level (test code = 53 IntlUnit/L 25-115 Amylase Level) Comprehensive Metabolic [id number] 16:13:11 Test Item Value Reference Range Interpretation [...] = AST) 20 IntlUnit/L 15-37 Comprehensive Metabolic [id number] 16:13:11 Test Item Value Reference Range Interpretation [...] >60 mL/min/1.73 m2 N AA) Comprehensive Metabolic [id number] 16:13:11 Test Item Value Reference Range Interpretation [...] >60 mL/min/1.73 m2 N eGFR Non-AA) Automated [id number] 16:12:15 Test Item Value Reference Range Interpretation Comments Neutro Auto (test code = Neutro Auto) 55.4 % N Lymph Auto (test code = Lymph Auto) 36.3 % N [facility] Auto (test code = [facility] Auto) 5.5 % N Eos, Auto (test code = Eos, Auto) 1.9 % N Basophil Auto (test code = Basophil 0.9 % N Auto) Neutro Absolute (test code = Neutro 4.9 x10 2.7-7.3 Absolute) Lymph Absolute (test code = Lymph 3.2 x10 0.8-3.5 Absolute) [facility] Absolute (test code = [facility] 0.5 x10 0.3-0.9 Absolute) Eos Absolute (test code = Eos 0.2 x10 0.0-0.3 Absolute) Baso Absolute (test code = Baso 0.1 x10 0.0-0.1 Absolute) Complete Blood Count with [id number] 16:12:14 Test Item Value Reference Range Interpretation [...] created by = Slide Review) GL_SET_SLIDE _REVIEW_A [facility] Comprehensive Metabolic [id number] 14:21:14 Test Item Value Reference Range Interpretation [...] = AST) 22 IntlUnit/L 15-37 Comprehensive Metabolic [id number] 14:21:14 Test Item Value Reference Range Interpretation [...] >60 mL/min/1.73 m2 N AA) Comprehensive Metabolic [id number] 14:21:14 Test Item Value Reference Range Interpretation [...] m2 N eGFR Non-AA) Pro B Natriuretic [id number] 14:05:15 Test Item Value Reference Range Interpretation [...] f ailure likely Complete Blood Count with [id number] 13:59:12 Test Item Value Reference Range Interpretation [...] = Slide Review) GL_SET_SLIDE _REVIEW_A UTO Automated [id number] 13:59:12 Test Item Value Reference Range Interpretation Comments Neutro Auto (test code = Neutro Auto) 68.5 % N Lymph Auto (test code = Lymph Auto) 24.5 % N [facility] Auto (test code = [facility] Auto) 5.6 % N Eos, Auto (test code = Eos, Auto) 1.0 % N Basophil Auto (test code = Basophil 0.4 % N Auto) Neutro Absolute (test code = Neutro 8.2 x10 2.7-7.3 H Absolute) Lymph Absolute (test code = Lymph 2.9 x10 0.8-3.5 Absolute) [facility] Absolute (test code = [facility] 0.7 x10 0.3-0.9 Absolute) Eos Absolute (test code = Eos 0.1 x10 0.0-0.3 Absolute) Baso Absolute (test code = Baso 0.0 x10 0.0-0.1 Absolute) XR Chest 2 [id number] 13:41:47Patient: KEKE HAYNES Date/Time02/24/201913:18 CDTReason for ExamShortness [...] (Electronic Signature): 02/24/2019 1:41 pmXR Chest 2 [id number] 10:31:38Patient: KEKE HAYNES Date/Time10/06/2018 10:23 CDTReason for [...] amXR Chest 2 Views 2018-09-22 14:38:49Patient: KEKE HANYES Date/Time09/22/201814:05 CSTReason for ExamRespiratory distressReportCHEST 2 VIEWS:HISTORY: [...] 09/22/2018 2:38 pmXR Ankle Complete 3+ Views [id number] 07:53:52Patient: KEKE HAYNES Date/Time09/04/2018 22:40 CSTReason for [...] 09/05/2018 7:53 amXR Foot Complete 3+ Views [id number] 07:53:39Patient: KEKE HAYNES Date/Time09/04/2018 22:40 CSTReason for [...] 09/05/2018 7:53 amCT Abdomen and Pelvis w/o [id number] 14:15:18Patient: KEKE HAYNES Date/Time07/09/2018 13:45 CSTReason for [...] MD Leary Craig ASigned (Electronic Signature): 07/09/2018 2:[id number] 18:24:00 Test Item Value Reference Range Interpretation [...] BACTERIA (test code = NEGATIVE NONE BACTERIA) [id number] 18:16:00 Test Item Value Reference Range Interpretation [...] glucose = GLUCOSE) normal <100 MG/ DL- [place] recommendation* * CALCIUM (test [...] GFR) mL/min/1.73m2 mL/min/1.73m2 is considered norm al. [id number] 18:16:00 Test Item Value Reference Range Interpretation Comments LIPASE (test code = LIPA) 95 U/L 23-300 [id number] 18:07:00 Test Item Value Reference Range Interpretation [...] 3.5 K/UL 1.2-7.2 = NEUT) OCCULT BLOOD, [id number] 06:35:00 Test Item Value Reference Range Interpretation Comments OCCULT BLOOD FECES (test code = NEGATIVE NEGATIVE OCCBLFEC) LOT# CRD (test code = LOT# CRD) 29951 EXP CRD (test code = EXP CRD) 10-20 LOT# DVL (test code = LOT# DVL) 93145 EXP DVL (test code = EXP DVL) 7-21 INT QC (test code = INT QC) PASSED [id number] 00:14:00 Test Item Value Reference Range Interpretation [...] glucose = GLUCOSE) normal <100 MG/ DL- [place] recommendation* * CALCIUM (test [...] GFR) mL/min/1.73m2 mL/min/1.73m2 is considered norm al. [id number] 00:14:00 Test Item Value Reference Range Interpretation Comments LIPASE (test code = LIPA) 134 U/L 23-300 ABDOMEN 2 [id number] 21:18:[address] [id number] IMAGING REPORTPatient Name: Amaris HAYNES of Service: [id number]: 52 Sex: F Order #: [id number] Room: [facility]: 1965 X-Ray Number: [id number] Record Number: [id number] Hospital Number: [id number] Physician: YANNA HAROOrdering Physician: Mallika MAY.History: Abdomen [...] PMLegally authenticated by CLARA Talley 2018-04-04 21:16:02 [id number] 17:07:00 Test Item Value Reference Range Interpretation [...] (test code 5.6 K/UL 1.2-7.2 = NEUT) [id number] 17:06:00 Test Item Value Reference Range Interpretation [...] (test code = UAMICRO) NO CT ABDOMEN/PELVIS [id number] 16:28:[address] [id number] IMAGING REPORTPatient Name: Amaris HAYNES of Service: [id number]: 52 Sex: F Order #: [id number] Room: [facility]: 1965 X-Ray Number: [id number] Record Number: [id number] Hospital Number: [id number] Physician: YANNA HAROOrderkelsi Physician: DANETTE CLARK ABDOMEN/PELVIS [...] 4:25 PMLegally authenticated by GEORGIA WISEMAN 2018-04-01 16:25:[id number] 14:29:00 Test Item Value Reference Range Interpretation Comments BLOOD TYPE (test code = TYPE) O Rh Positive ANTIBODY SCREEN (test code = NEGATIVE NEGATIVE SCREEN) PROTHROMBIN TIME WITH [id number] 14:13:00 Test Item Value Reference Range Interpretation Comments PROTHROMBIN TIME 12.5 SECONDS 12.0-14.6 INR Usual R john = 2 (test code = PT) to 3 for pr evention of deep vein thrombosis (DVT ) INR (test code = INR) 0.9 [id number] 14:13:00 Test Item Value Reference Range Interpretation Comments PTT (test code = 37.8 SECONDS 24.4-36.3 H HEPARIN THE RAPEUTIC PTT) RANGE 57-92 SEC ONDS [id number] 14:00:00 Test Item Value Reference Range Interpretation [...] glucose = GLUCOSE) normal <100 MG/ DL- [place] recommendation* * CALCIUM (test [...] GFR) mL/min/1.73m2 mL/min/1.73m2 is considered norm al. [id number] 14:00:00 Test Item Value Reference Range Interpretation Comments LIPASE (test code = LIPA) 40 U/L 23-300 [id number] 13:51:00 Test Item Value Reference Range Interpretation [...] code 8.8 K/UL 1.2-7.2 H = NEUT) [id number] 13:22:00 Test Item Value Reference Range Interpretation [...] (test code = UAMICRO) NO SPINE LUMBAR [id number] 13:32:[address] [id number] IMAGING REPORTPatient Name: Amaris HAYNES of Service: [id number]: 51 Sex: F Order #: [id number] Room: [facility]: 1965 X-Ray Number: [id number] Record Number: [id number] Hospital Number: [id number] Physician: Abelardo YEing Physician: LAURENCE HONG SPINE [...] 1:29 PMLegally authenticated by JENNIFER Daniels 2017-10-16 13:29:[id number] 12:33:00 Test Item Value Reference Range Interpretation [...] BACTERIA (test code = NEGATIVE NONE BACTERIA) 07881& [id number] 06:46:50CHEST 2 VIEWREASON FOR STUDY: [id number]:The heart and mediastinum are within normal limits. Minor linearscarring or atelectasis is noted involving the right infrahilar region.Lungs appear slightly hyperinflated. Bony structures appear intact. . No other significant findings. IMPRESSION: Minor linear scarring or atelectasis involving the right infrahilarregion. Chest is otherwise clear.
[2020-10-02] MEDS ORDERED: ONDANSETRON 4 MG/2 ML VIAL ONE (13:50)
[2020-10-02 13:51] LABS: BUN Blood Urea Nitrogen 17 mg/dL (7-18); Bicarbonate 24 mmol/L (21-32); Glucose Level 100 mg/dL (74-106); Sodium Level 141 mmol/L (136-145)
[2020-10-02 13:53] LABS: Absolute Lymphocytes (CBC) 2.8 K/uL (0.7-4.9); Basophils % 1.1 % (0-1.3); Hematocrit 39.4 % (36.0-45.0); Lymphocytes % 27.6 % (15.3-44.8); MPV 7.2 fL (7.6-11.3); RBC Red Blood Cell Count 4.32 M/uL (3.86-4.86)
[2020-10-02] MEDS ORDERED: ACETAMINOPHEN 500 MG TAB ONE (14:31)
[2020-10-02] MEDS ORDERED: MORPHINE 2 MG/ML SYR ONE (15:48)
[2020-10-02 16:58] LABS: Urine Bacteria NONE SEEN /HPF (<20)
[2020-10-02 16:59] LABS: Urine Blood TRACE (NEG); Urine Glucose TRACE (NEG); Urine Protein NEGATIVE (NEG); Urine Specific Gravity 1.015 (1.005-1.030)
--- NOTE | 2020-10-02 17:10 | RAD REPORT ---
EXAM DESCRIPTION: CT - Abdomen Pelvis W Contrast - 10/02/2020 4:20 pm CLINICAL HISTORY: Abdominal pain COMPARISON: 2019 TECHNIQUE: Computed axial tomography of the abdomen pelvis was obtained. 100 cc Isovue-300 was admin istered intravenously. Oral contrast was not requested which limits evaluation of bowel. All CT scans are performed using dose optimization technique as appropriate and may include automated exposure control or mA/KV adjustment according to patient size. FINDINGS: The liver, pancreas, adrenals kidneys appear unremarkable. Splenic granulomata are present . Cholecystectomy. The common bile duct has become more prominent than on prior exam. Mild dilatation i ntrahepatic biliary tree. Hysterectomy. There is no evidence of diverticulitis. IMPRESSION: Prominence of the biliary tree. This can be physiologic in patient status post cholecyst ectomy. Pathology such as stricture or stone can also result in this appearance and should be correla sherry clinically and with appropriate lab values
--- NOTE | 2020-10-02 17:29 | ER ---
Nurse's Notes [facility] Name: Bárbara Beebe Age: 54 yrs Sex: Female : 1965 Arrival Date: 10/02/2020 Time: 12:00 Bed 23 Private MD: Diagnosis: Dysuria;Rash and other nonspecific skin eruption Presentation: 10/02 12:03 Chief complaint: Patient states: Pain with urination, urinary urgency and frequency, ca1 nausea since yesterday. R flank pain. Coronavirus screen: Client denies travel out of the [place] in the last 14 days. nausea, Client presents with at least one sign or symptom that may indicate coronavirus-19. Standard/surgical mask placed on the client. Provider contacted for isolation considerations. Ebola Screen: Patient negative for fever greater than or equal to 101.5 degrees Fahrenheit, and additional compatible Ebola Virus Disease symptoms Patient denies exposure to infectious person. Patient denies travel to an Ebola-affected area in the 21 days before illness onset. No symptoms or risks identified at this time. Initial Sepsis Screen: Does the patient meet any 2 criteria? No. Patient's initial sepsis screen is negative. Does the patient have a suspected source of infection? No. Patient's initial sepsis screen is negative. Risk Assessment: Do you want to hurt yourself or someone else? Patient reports no desire to harm self or others. Onset of symptoms was October 02, 2020. 12:03 Method Of Arrival: Ambulatory ca1 12:03 Acuity: ANGELA 4 ca1 13:13 Acuity: ANGELA 3 iw Historical: - Allergies: 12:05 UNKNOWN STEROID; ca1 - Home Meds: 12:05 None [Active]; ca1 - PMHx: 12:05 COPD; Crohn's; Hypertension; psoriasis; ca1 - PSHx: 12:05 Appendectomy; Hysterectomy; Tonsillectomy; ca1 - Immunization history:: Flu vaccine is up to date. - Social history:: Smoking status: Patient reports the use of cigarette tobacco products, smokes one-half pack cigarettes per day. Screenin:27 Abuse screen: Denies threats or abuse. Denies injuries from another. Nutritional iw screening: No deficits noted. Tuberculosis screening: No symptoms or risk factors identified. Fall Risk None identified. Assessment: 13:05 General: Appears in no apparent distress. Behavior is calm, cooperative. Pain: iw Complains of pain in posterior aspect of right lateral abdomen. 13:05 Neuro: Level of Consciousness is awake, alert, obeys commands, Oriented to person, iw place, time, situation, Moves all extremities. Full function. Cardiovascular: Patient's skin is warm and dry. Respiratory: Respiratory effort is even, unlabored, Respiratory pattern is regular. : Reports pain with urination. Derm: Skin is intact, is healthy with good turgor. 13:36 General: Appears in no apparent distress. uncomfortable, Behavior is calm, cooperative, zb appropriate for age. Pain: Complains of pain in right flank and abdomen and posterior aspect of right lateral abdomen Pain does not radiate. Pain currently is 6 out of 10 on a pain scale. Quality of pain is described as aching, squeezing, Pain began 2-3 days ago. Neuro: Level of Consciousness is awake, alert, obeys commands, Oriented to person, place, time, situation, Gait is steady, Speech is normal. Cardiovascular: Patient's skin is warm and dry. Respiratory: Airway is patent Respiratory effort is even, unlabored, Respiratory pattern is regular, symmetrical. GI: No signs and/or symptoms were reported involving the gastrointestinal system. : Reports pain with urination. EENT: No signs and/or symptoms were reported regarding the EENT system. Derm: Skin is intact, is healthy with good turgor, Rash noted that is itchy, papular, red. Musculoskeletal: Range of motion: intact in all extremities. 14:15 Reassessment: Patient appears in no apparent distress at this time. Patient and/or zb family updated on plan of care and expected duration. Pain level reassessed. Patient is alert, oriented x 3, equal unlabored respirations, skin warm/dry/pink. pt reported pain. notified ECP. medication ordered. 15:29 Reassessment: Patient appears in no apparent distress at this time. Patient and/or zb family updated on plan of care and expected duration. Pain level reassessed. Patient is alert, oriented x 3, equal unlabored respirations, skin warm/dry/pink. patient c/o of pain. notified ecp medication ordered. 16:44 Reassessment: Patient appears in no apparent distress at this time. Patient and/or zb family updated on plan of care and expected duration. Pain level reassessed. Patient is alert, oriented x 3, equal unlabored respirations, skin warm/dry/pink. lights dimmed patient appears to be resting. 17:32 Reassessment: Patient appears in no apparent distress at this time. Patient and/or zb family updated on plan of care and expected duration. Pain level reassessed. Patient is alert, oriented x 3, equal unlabored respirations, skin warm/dry/pink. ecp at bedside discussing care. patient d/c gait steady and even. no questions at this time. Vital Signs: 12:03 BP 125 / 78; Pulse 99; Resp 17 S; Temp 97.6(TE); Pulse Ox 98% on R/A; Weight 67.59 kg ca1 (R); Height 5 ft. 2 in. (157.48 cm) (R); Pain 2/10; 13:38 BP 118 / 70; Pulse 78; Resp 16; Pulse Ox 99% on R/A; zb 14:30 BP 142 / 103; Pulse 75; Resp 16; Pulse Ox 100% on R/A; zb 15:32 BP 131 / 85; Pulse 79; Resp 16; Pulse Ox 95% on R/A; zb 16:00 BP 99 / 80; Pulse 73; Resp 16; Pulse Ox 100% on R/A; zb 17:30 BP 115 / 77; Pulse 69; Resp 16; Pulse Ox 100% on R/A; zb 12:03 Body Mass Index 27.25 (67.59 kg, 157.48 cm) ca1 ED Course: 12:00 Patient arrived in ED. am2 12:05 Triage completed. ca1 12:05 Arm band placed on right wrist. ca1 12:54 Lien Massey, FRANKI is Primary Nurse. iw 12:58 Nate Hansen PA is PHCP. jmm 12:58 Kamari Salvador MD is Attending Physician. [facility] 13:06 Urine collected: clean catch specimen, ORANGE URINE COLOR. 5 13:08 Urine Culture Sent. 5 13:08 Urine Culture Sent. 5 15:00 Patient has correct armband on for positive identification. Placed in gown. Bed in low zb position. Call light in reach. Side rails up X 1. Pulse ox on. NIBP on. 16:20 CT Abd/Pelvis - IV Contrast Only In Process Unspecified. EDMS 17:32 No provider procedures requiring assistance completed. IV discontinued, intact, zb bleeding controlled, No redness/swelling at site. Pressure dressing applied. Administered Medications: 13:32 Drug: Zofran (Ondansetron) 4 mg Route: IVP; Site: right antecubital; zb 14:20 Follow up: Response: No adverse reaction; Nausea is decreased zb 14:20 Drug: Tylenol 1000 mg Route: PO; zb 15:28 Follow up: Response: No adverse reaction; Pain is decreased zb 15:00 Drug: morphine 2 mg {Note: rass 0.} Route: IVP; Site: right antecubital; zb 16:42 Follow up: Response: No adverse reaction; Pain is decreased zb 17:30 Drug: Rocephin (cefTRIAXone) 1 grams Route: IV; Rate: calculated rate; Site: right zb antecubital; 17:30 Follow up: Response: No adverse reaction; IV Status: Completed infusion; IV Intake: 20mlzb Intake: 17:30 IV: 20ml; Total: 20ml. zb Outcome: 17:29 Discharge ordered by . sajan 17:33 Discharged to home ambulatory. zb 17:33 Condition: stable 17:33 Discharge instructions given to patient, Instructed on discharge instructions, follow up and referral plans. medication usage, Demonstrated understanding of instructions, follow-up care, medications, Prescriptions given X 2. 17:37 Patient left the ED. zb Signatures: Dispatcher [employer] EDMS Nate Hansen PA PA jmm Williams, Irene, RN RN Dulce Tafoya [facility] Fabiana Mcmahon Cheryl, RN RN ca1 Brown, Zipporah, RN RN zb Corrections: (The following items were deleted from the chart) 13:27 13:05 Pain: Complains of pain in posterior aspect of right lateral abdomen iw iw 16:42 15:00 morphine 2 mg IVP in right antecubital zb zb
--- NOTE | 2020-10-02 17:29 | EDPHYS ---
Physician Documentation [facility] Name: Bárbara Beebe Age: 54 yrs Sex: Female : 1965 Arrival Date: 10/02/2020 Time: 12:00 Bed 23 Private MD: SILVA Physician Kamari Salvador HPI: 10/02 13:51 This 54 yrs old Female presents to ER via Ambulatory with complaints of Pain jmm With Urination, Back Pain. 13:51 The patient presents with urinary symptoms, dysuria. Onset: The symptoms/episode jmm began/occurred gradually, 2 day(s) ago. Modifying factors: The symptoms are alleviated by nothing, the symptoms are aggravated by nothing. Associated signs and symptoms: Pertinent negatives: fever. This is a 54 year old female with a history of crohns, htn, copd that presents to the ED with dysuria, right sided back pain, chills beginning approx 2 days ago. . Historical: - Allergies: 12:05 UNKNOWN STEROID; ca1 - Home Meds: 12:05 None [Active]; ca1 - PMHx: 12:05 COPD; Crohn's; Hypertension; psoriasis; ca1 - PSHx: 12:05 Appendectomy; Hysterectomy; Tonsillectomy; ca1 - Immunization history:: Flu vaccine is up to date. - Social history:: Smoking status: Patient reports the use of cigarette tobacco products, smokes one-half pack cigarettes per day. ROS: 13:51 Constitutional: Positive for body aches, chills. jmm 13:51 Back: Positive for flank pain, on the right. 13:51 : Positive for urinary symptoms. 13:51 All other systems are negative. Exam: 13:51 Constitutional: This is a well developed, well nourished patient who is awake, alert, jmm and in no acute distress. Head/Face: atraumatic. Eyes: EOMI, no conjunctival erythema appreciated ENT: Moist Mucus Membranes Neck: Trachea midline, Supple Chest/axilla: Normal chest wall appearance and motion. Cardiovascular: Regular rate and rhythm. No edema appreciated Respiratory: Normal respirations, no respiratory distress appreciated 13:51 Back: Normal ROM Skin: General appearance color normal MS/ Extremity: Moves all extremities, no obvious deformities appreciated, no edema noted to the lower extremities Neuro: Awake and alert, normal gait Psych: Behavior is normal, Mood is normal, Patient is cooperative and pleasant 13:51 Abdomen/GI: Inspection: abdomen appears normal, Bowel sounds: normal, Palpation: soft, mild abdominal tenderness, in the right lower quadrant. 13:51 Back: CVA tenderness, that is moderate, is noted on the right. Vital Signs: 12:03 BP 125 / 78; Pulse 99; Resp 17 S; Temp 97.6(TE); Pulse Ox 98% on R/A; Weight 67.59 kg ca1 (R); Height 5 ft. 2 in. (157.48 cm) (R); Pain 2/10; 13:38 BP 118 / 70; Pulse 78; Resp 16; Pulse Ox 99% on R/A; zb 14:30 BP 142 / 103; Pulse 75; Resp 16; Pulse Ox 100% on R/A; zb 15:32 BP 131 / 85; Pulse 79; Resp 16; Pulse Ox 95% on R/A; zb 16:00 BP 99 / 80; Pulse 73; Resp 16; Pulse Ox 100% on R/A; zb 17:30 BP 115 / 77; Pulse 69; Resp 16; Pulse Ox 100% on R/A; zb 12:03 Body Mass Index 27.25 (67.59 kg, 157.48 cm) ca1 MDM: 13:06 Patient medically screened. sajan 17:27 Data reviewed: vital signs, nurses notes. Counseling: I had a detailed discussion with sajan the patient and/or guardian regarding: the historical points, exam findings, and any diagnostic results supporting the discharge/admit diagnosis, lab results, radiology results, the need for outpatient follow up, to return to the emergency department if symptoms worsen or persist or if there are any questions or concerns that arise at home. ED course: Patient is alert and non toxic in appearance in the ED. Patient is advised to follow up with pcp and otherwise given strict return precautions. Patient understood and agrees with the plan of care. . 10/02 13:07 Order name: Urine Culture [facility] 10/02 13:07 Order name: Urine Culture [facility] 10/02 13:09 Order name: BMP; Complete Time: 14:09 [facility] 10/02 13:09 Order name: CBC with Diff; Complete Time: 14:09 [facility] 10/02 13:09 Order name: Procalcitonin; Complete Time: 15:00 [facility] 10/02 13:09 Order name: Lactate; Complete Time: 14:09 [facility] 10/02 13:09 Order name: Urine Microscopic Only; Complete Time: 17:14 [facility] 10/02 13:10 Order name: Urine --Ancillary (enter results); Complete Time: 17:14 10/02 13:10 Order name: Urine Dipstick--Ancillary (enter results); Complete Time: 17:14 10/02 15:57 Order name: CT Abd/Pelvis - IV Contrast Only; Complete Time: 17:14 [facility] 10/02 13:07 Order name: Urine Dipstick-Ancillary (obtain specimen); Complete Time: 13:08 [facility] 10/02 13:09 Order name: Saline Lock; Complete Time: 13:31 [facility] Administered Medications: 13:32 Drug: Zofran (Ondansetron) 4 mg Route: IVP; Site: right antecubital; zb 14:20 Follow up: Response: No adverse reaction; Nausea is decreased zb 14:20 Drug: Tylenol 1000 mg Route: PO; zb 15:28 Follow up: Response: No adverse reaction; Pain is decreased zb 15:00 Drug: morphine 2 mg {Note: rass 0.} Route: IVP; Site: right antecubital; zb 16:42 Follow up: Response: No adverse reaction; Pain is decreased zb 17:30 Drug: Rocephin (cefTRIAXone) 1 grams Route: IV; Rate: calculated rate; Site: right zb antecubital; 17:30 Follow up: Response: No adverse reaction; IV Status: Completed infusion; IV Intake: 20mlzb Disposition: 10/03 09:44 Co-signature as Attending Physician, Kamari Salvador MD I agree with the assessment and vanna plan of care. Disposition: 10/02/20 17:29 Discharged to Home. Impression: Dysuria, Rash and other nonspecific skin eruption. - Condition is Stable. - Discharge Instructions: Dysuria, Rash. - Prescriptions for Cephalexin 500 mg Oral Capsule - take 1 capsule by ORAL route every 8 hours for 10 days; 30 capsule. Hydroxyzine HCl 25 mg Oral Tablet - take 1 tablet by ORAL route every 6 hours As needed; 30 tablet. - Medication Reconciliation Form, Thank You Letter, Antibiotic Education, Prescription Opioid Use form. - Follow up: Private Physician; When: 2 - 3 days; Reason: Recheck today's complaints, Continuance of care, Re-evaluation by your physician. Signatures: Dispatcher [employer] Kamari Allison MD MD cha Mickail, Joel, PA PA jmm Acob, Cheryl, RN RN ca1 Brown, Zipporah, RN RN zb Corrections: (The following items were deleted from the chart) 10/02 17:37 17:29 10/02/2020 17:29 Discharged to Home. Impression: Dysuria; Rash and other zb nonspecific skin eruption. Condition is Stable. Forms are Medication Reconciliation Form, Thank You Letter, Antibiotic Education, Prescription Opioid Use. Follow up: Private Physician; When: 2 - 3 days; Reason: Recheck today's complaints, Continuance of care, Re-evaluation by your physician. sajan
[2020-10-02] MEDS ORDERED: CEFTRIAXONE/SWI 1gm 1 GM/10 ML SYR ONE (17:44)
[2020-10-02 23:45] VITALS: TEMP 97.6
[2020-10-02 23:49] VITALS: O2SAT 100
[2020-10-02 23:50] VITALS: BP 115/77
== END 2020-10-02 17:37 | disposition home or self-care (01) ==
LOC: ER 11:55
DX: R30.0 Dysuria (principal); R21 Rash and other nonspecific skin eruption; J44.9 Chronic obstructive pulmonary disease, unspecified; K50.90 Crohn's disease, unspecified, without complications; I10 Essential (primary) hypertension; L40.9 Psoriasis, unspecified; F17.210 Nicotine dependence, cigarettes, uncomplicated
CPT/HCPCS: 36415; 74177; 80048; 81003; 81015; 81025; 83605; 84145; 85025; 87086; 87088; 96374; 96375; 99284; J0696; J2270; J2405; Q9967

== ENCOUNTER 2020-10-30 13:30 | Emergency (ER) | payer SELFPAY ==
--- OUTSIDE RECORDS SUMMARY | 2020-10-30 13:33 | XMS REPORT | Continuity of Care Document ---
:1965 Author Organization [facility] t Address [address] [place] [address] Care Team Providers Name Role Phone [facility] Primary Care Physician Unavailable Yves Gaston DO Attending Clinician Taylor Taveras MD Attending Clinician Problems This patient has no known problems. Allergies, Adverse Reactions, Alerts This patient has no known allergies or adverse reactions. Medications This patient has no known medications. Procedures This patient has no known procedures. Encounters Start End Encounter Admission Attending Care Care Encounter Source Date/Time Date/Time Type Type Clinicians Facility Department ID 2020-10-10 2020-10-10 Patient LUCIUS Gaston [id number] 00:00:00 00:00:00 Outreach [facility] [id number] Yves [facility] [id number] YEISON [id number] [facility] 2020-04-04 2020-04-04 Office LUCIUS Taveras [id number] 10:33:36 10:48:36 Visit [facility] [id number] [place] [id number] [place] [phone] Medical [facility] Office Building 2017-03-26 2017-03-26 Emergency E [facility] [id number] Medical 14:55:00 14:55:00 [facility] 2017-03-07 2017-03-07 Emergency E [facility] [id number] Medical 17:01:00 17:01:00 [facility] 2017-02-22 2017-02-22 Emergency E [facility] [id number] Medical 11:40:00 11:40:00 [facility] Results Test Description Test Time Test Comments Results Result Sourc e Comments XR Abdomen KUB 1 2019-03-15 Patient: [place], View 18:15:18 KEKE Date/Time03/15/2019 18:02 CDTReason for [...] /LPF 0-20 A Urinalysis with Culture, if [id number] 16:19:42 Test Item Value Reference Range Interpretation [...] = UA Micro Ind?) rule GL_SET_UA_MICRO _IND [id number] 16:13:11 Test Item Value Reference Range Interpretation Comments Amylase Level (test code = 53 IntlUnit/L 25-115 Amylase Level) Comprehensive Metabolic [id number] 16:13:11 Test Item Value Reference Range Interpretation [...] = AST) 20 IntlUnit/L 15-37 Comprehensive Metabolic [id number] 16:13:11 Test Item Value Reference Range Interpretation [...] >60 mL/min/1.73 m2 N AA) Comprehensive Metabolic [id number] 16:13:11 Test Item Value Reference Range Interpretation [...] >60 mL/min/1.73 m2 N eGFR Non-AA) Automated [id number] 16:12:15 Test Item Value Reference Range Interpretation Comments Neutro Auto (test code = Neutro Auto) 55.4 % N Lymph Auto (test code = Lymph Auto) 36.3 % N [place] Auto (test code = [place] Auto) 5.5 % N Eos, Auto (test code = Eos, Auto) 1.9 % N Basophil Auto (test code = Basophil 0.9 % N Auto) Neutro Absolute (test code = Neutro 4.9 x10 2.7-7.3 Absolute) Lymph Absolute (test code = Lymph 3.2 x10 0.8-3.5 Absolute) [place] Absolute (test code = [place] 0.5 x10 0.3-0.9 Absolute) Eos Absolute (test code = Eos 0.2 x10 0.0-0.3 Absolute) Baso Absolute (test code = Baso 0.1 x10 0.0-0.1 Absolute) Complete Blood Count with [id number] 16:12:14 Test Item Value Reference Range Interpretation [...] created by = Slide Review) GL_SET_SLIDE _REVIEW_A [facility] Comprehensive Metabolic [id number] 14:21:14 Test Item Value Reference Range Interpretation [...] = AST) 22 IntlUnit/L 15-37 Comprehensive Metabolic [id number] 14:21:14 Test Item Value Reference Range Interpretation [...] >60 mL/min/1.73 m2 N AA) Comprehensive Metabolic [id number] 14:21:14 Test Item Value Reference Range Interpretation [...] m2 N eGFR Non-AA) Pro B Natriuretic [id number] 14:05:15 Test Item Value Reference Range Interpretation [...] f ailure likely Complete Blood Count with [id number] 13:59:12 Test Item Value Reference Range Interpretation [...] = Slide Review) GL_SET_SLIDE _REVIEW_A UTO Automated [id number] 13:59:12 Test Item Value Reference Range Interpretation Comments Neutro Auto (test code = Neutro Auto) 68.5 % N Lymph Auto (test code = Lymph Auto) 24.5 % N [place] Auto (test code = [place] Auto) 5.6 % N Eos, Auto (test code = Eos, Auto) 1.0 % N Basophil Auto (test code = Basophil 0.4 % N Auto) Neutro Absolute (test code = Neutro 8.2 x10 2.7-7.3 H Absolute) Lymph Absolute (test code = Lymph 2.9 x10 0.8-3.5 Absolute) [place] Absolute (test code = [place] 0.7 x10 0.3-0.9 Absolute) Eos Absolute (test code = Eos 0.1 x10 0.0-0.3 Absolute) Baso Absolute (test code = Baso 0.0 x10 0.0-0.1 Absolute) XR Chest 2 [id number] 13:41:47Patient: KEKE HAYNES Date/Time02/24/201913:18 CDTReason for ExamShortness [...] (Electronic Signature): 02/24/2019 1:41 pmXR Chest 2 [id number] 10:31:38Patient: KEKE HAYNES Date/Time10/06/2018 10:23 CDTReason for [...] 09/22/2018 2:38 pmXR Ankle Complete 3+ Views [id number] 07:53:52Patient: KEKE HAYNES Date/Time09/04/2018 22:40 CSTReason for [...] right ankle. Final Dictated by: MD Cruz, Mansiictjacob DT/TM: 09/05/2018 7:49 amSigned by: MD Cruz, RuthrSigned (Electronic Signature): 09/05/2018 7:53 amXR Foot Complete 3+ Views [id number] 07:53:39Patient: KEKE HAYNES Date/Time09/04/2018 22:40 CSTReason for [...] left foot. Final Dictated by: MD Cruz, SameEzekielictated DT/TM: 09/05/2018 7:52 amSigned by: MD Cruz, SamerSigned(Electronic Signature): 09/05/2018 7:53 amCT Abdomen and Pelvis w/o [id number] 14:15:18Patient: KEKE HAYNES Date/Time07/09/2018 13:45 CSTReason for [...] MD Leary Craig ASigned (Electronic Signature): 07/09/2018 2:[id number] 18:24:00 Test Item Value Reference Range Interpretation [...] BACTERIA (test code = NEGATIVE NONE BACTERIA) [id number] 18:16:00 Test Item Value Reference Range Interpretation [...] glucose = GLUCOSE) normal <100 MG/ DL- [employer] recommendation* * CALCIUM (test [...] GFR) mL/min/1.73m2 mL/min/1.73m2 is considered norm al. [id number] 18:16:00 Test Item Value Reference Range Interpretation Comments LIPASE (test code = LIPA) 95 U/L 23-300 [id number] 18:07:00 Test Item Value Reference Range Interpretation [...] 3.5 K/UL 1.2-7.2 = NEUT) OCCULT BLOOD, [id number] 06:35:00 Test Item Value Reference Range Interpretation Comments OCCULT BLOOD FECES (test code = NEGATIVE NEGATIVE OCCBLFEC) LOT# CRD (test code = LOT# CRD) [id number] EXP CRD (test code = EXP CRD) 10- LOT# DVL (test code = LOT# DVL) 39576 EXP DVL (test code = EXP DVL) 7-21 INT QC (test code = INT QC) PASSED [id number] 00:14:00 Test Item Value Reference Range Interpretation [...] glucose = GLUCOSE) normal <100 MG/ DL- [employer] recommendation* * CALCIUM (test [...] GFR) mL/min/1.73m2 mL/min/1.73m2 is considered norm al. [id number] 00:14:00 Test Item Value Reference Range Interpretation Comments LIPASE (test code = LIPA) 134 U/L 23-300 ABDOMEN 2 [id number] 21:18:[address] [id number] IMAGING REPORTPatient Name: Amaris HAYNES of Service: [id number]: 52 Sex: F Order #: [id number] Room: ERDOB: 1965 X-Ray Number: [id number] Record Number: [id number] Hospital Number: [id number] Physician: YANNA HAROOrdering Physician: Mallika MAY.History: Abdomen [...] PMLegally authenticated by CLARA Talley 2018-04-04 21:16:02 [id number] 17:07:00 Test Item Value Reference Range Interpretation [...] (test code 5.6 K/UL 1.2-7.2 = NEUT) [id number] 17:06:00 Test Item Value Reference Range Interpretation [...] (test code = UAMICRO) NO CT ABDOMEN/PELVIS [id number] 16:28:[address] [id number] IMAGING REPORTPatient Name: Amaris HAYNES of Service: [id number]: 52 Sex: F Order #: [id number] [facility] 1965 [facility] Number: [id number] Record Number: [id number] Hospital Number: [id number] Physician: YANNA HAROOrdering Physician: DANETTE CLARK ABDOMEN/PELVIS [...] 4:25 PMLegally authenticated by GEORGIA WISEMAN 2018-04-01 16:25:[id number] 14:29:00 Test Item Value Reference Range Interpretation Comments BLOOD TYPE (test code = TYPE) O Rh Positive ANTIBODY SCREEN (test code = NEGATIVE NEGATIVE SCREEN) PROTHROMBIN TIME WITH [id number] 14:13:00 Test Item Value Reference Range Interpretation Comments PROTHROMBIN TIME 12.5 SECONDS 12.0-14.6 INR Usual R john = 2 (test code = PT) to 3 for pr evention of deep vein thrombosis (DVT ) INR (test code = INR) 0.9 [id number] 14:13:00 Test Item Value Reference Range Interpretation Comments PTT (test code = 37.8 SECONDS 24.4-36.3 H HEPARIN THE RAPEUTIC PTT) RANGE 57-92 SEC ONDS [id number] 14:00:00 Test Item Value Reference Range Interpretation [...] glucose = GLUCOSE) normal <100 MG/ DL- [employer] recommendation* * CALCIUM (test [...] GFR) mL/min/1.73m2 mL/min/1.73m2 is considered norm al. [id number] 14:00:00 Test Item Value Reference Range Interpretation Comments LIPASE (test code = LIPA) 40 U/L 23-300 [id number] 13:51:00 Test Item Value Reference Range Interpretation [...] code 8.8 K/UL 1.2-7.2 H = NEUT) [id number] 13:22:00 Test Item Value Reference Range Interpretation [...] (test code = UAMICRO) NO SPINE LUMBAR [id number] 13:32:[address] [id number] IMAGING REPORTPatient Name: Amaris HAYNES of Service: [id number]: 51 Sex: F Order #: [id number] [facility] 1965 [facility]-Ray Number: [id number] Record Number: [id number] Hospital Number: [id number] Physician: MICHELLE YEOrdering Physician: LAURENCE HONG SPINE [...] 1:29 PMLegally authenticated by JENNIFER Daniels 2017-10-16 13:29:[id number] 12:33:00 Test Item Value Reference Range Interpretation [...] BACTERIA (test code = NEGATIVE NONE BACTERIA) 34795& [id number] 06:46:50CHEST 2 VIEWREASON FOR STUDY: [id number]:The heart and mediastinum are within normal limits. Minor linearscarring or atelectasis is noted involving the right infrahilar region.Lungs appear slightly hyperinflated. Bony structures appear intact. . No other significant findings. IMPRESSION: Minor linear scarring or atelectasis involving the right infrahilarregion. Chest is otherwise clear.
--- NOTE | 2020-10-30 14:52 | RAD REPORT ---
EXAM DESCRIPTION: RAD - Chest Pa And Lat (2 Views) - 10/30/2020 2:27 pm CLINICAL HISTORY: COUGH, shortness of breath, body aches COMPARISON: Single-view chest July 2020 TECHNIQUE: Frontal and lateral views of the chest were obtained. FINDINGS: The lungs are clear of an acute process. Interstitial pattern matches comparison. Heart size is normal and central vasculature is within normal limits. No pleural effusion or pneumothorax seen. No acute bony finding noted. No aortic abnormality. No significant change from comparison s tudy. IMPRESSION: No acute cardiopulmonary process.
[2020-10-30] MEDS ORDERED: METHYLPREDNISOLONE 125 MG INJ ONE (16:32)
[2020-10-30] MEDS ORDERED: LEVALBUTEROL 1.25 MG/3 ML NEB ONE (16:32)
[2020-10-30 16:51] LABS: SARS-COV-2 RT PCR NEGATIVE (NEGATIVE)
--- NOTE | 2020-10-30 17:16 | EDPHYS ---
Physician Documentation [facility] Name: Bárbara Beebe Age: 54 yrs Sex: Female : 1965 Arrival Date: 10/30/2020 Time: 13:31 Bed 16 Private MD: Marisa Franklin ED Physician Kamari Salvador HPI: 10/30 15:34 This 54 yrs old Female presents to ER via Ambulatory with complaints of pm1 Shortness Of Breath, Headache. 15:34 The patient has shortness of breath at rest. pm1 15:34 Onset: The symptoms/episode began/occurred 3 day(s) ago. Duration: The symptoms are pm1 continuous. The patient's shortness of breath is aggravated by nothing, is alleviated by nothing. Associated signs and symptoms: Pertinent positives: non-productive cough, Pertinent negatives: chest pain, fever. Severity of symptoms: in the emergency department the symptoms are worse. The patient has experienced similar episodes in the past, multiple times. The patient has not recently seen a physician. Historical: - Allergies: 14:02 UNKNOWN STEROID; ca1 - PMHx: 14:02 COPD; Crohn's; Hypertension; psoriasis; ca1 - PSHx: 14:02 Appendectomy; Hysterectomy; Tonsillectomy; back surgery; ca1 - Immunization history:: Flu vaccine is up to date. - Social history:: Smoking status: Patient reports the use of cigarette tobacco products, smokes one-half pack cigarettes per day. ROS: 15:34 Neck: Negative for injury, pain, and swelling, Cardiovascular: Negative for chest pain, pm1 palpitations, and edema. 15:34 Abdomen/GI: Negative for abdominal pain, nausea, vomiting, diarrhea, and constipation, Back: Negative for injury and pain, MS/Extremity: Negative for injury and deformity, Skin: Negative for injury, rash, and discoloration. 15:34 Constitutional: Positive for body aches, chills, Negative for fever. 15:34 Respiratory: Positive for cough, with no reported sputum. 15:34 Neuro: Positive for headache, Negative for numbness, tingling, weakness. Exam: 15:34 Constitutional: This is a well developed, well nourished patient who is awake, alert, pm1 and in no acute distress. Head/Face: Normocephalic, atraumatic. 15:34 Back: No spinal tenderness. No costovertebral tenderness. Full range of motion. Skin: Warm, dry with normal turgor. Normal color with no rashes, no lesions, and no evidence of cellulitis. MS/ Extremity: Pulses equal, no cyanosis. Neurovascular intact. Full, normal range of motion. 15:34 Cardiovascular: Exam negative for acute changes, Rate: normal, Rhythm: regular, Pulses: no pulse deficits are appreciated. 15:34 Respiratory: the patient does not display signs of respiratory distress, Respirations: normal, Breath sounds: wheezing: expiratory that is mild, is heard diffusely. 15:34 Neuro: Exam negative for acute changes, Orientation: is normal, Mentation: is normal, Motor: is normal, moves all fours. Vital Signs: 13:59 BP 152 / 93; Pulse 83; Resp 16 S; Temp 97.1(TE); Pulse Ox 99% on R/A; Weight 65.77 kg ca1 (R); Height 5 ft. 2 in. (157.48 cm) (R); Pain 7/10; 15:39 BP 158 / 98; Pulse 69; Resp 18; Temp 98.0(O); Pulse Ox 97% ; mh5 16:36 BP 156 / 120; Pulse 73; Resp 16; Pulse Ox 100% ; bp 17:41 BP 150 / 75; Pulse 78; Resp 17; Temp 98; Pulse Ox 95% ; bp 13:59 Body Mass Index 26.52 (65.77 kg, 157.48 cm) ca1 MDM: 15:26 Patient medically screened. [facility] 16:52 Data reviewed: vital signs. Data interpreted: Pulse oximetry: on room air is 100 %. pm1 Interpretation: normal. 17:16 Counseling: I had a detailed discussion with the patient and/or guardian regarding: the pm1 historical points, exam findings, and any diagnostic results supporting the discharge/admit diagnosis, lab results, radiology results, the need for outpatient follow up, to return to the emergency department if symptoms worsen or persist or if there are any questions or concerns that arise at home. 10/30 14:03 Order name: Chest Pa And Lat (2 Views) XRAY; Complete Time: 15:30 ca1 10/30 16:51 Order name: COVID-19/FLU A+B; Complete Time: 16:58 EDMS Administered Medications: 16:05 Drug: Xopenex (3) 1.25 mg Route: Inhalation; bp 16:05 Drug: SOLU-Medrol 125 mg Route: IM; Site: left deltoid; bp 17:42 Follow up: Response: No adverse reaction bp Disposition: 10/30/20 17:16 Discharged to Home. Impression: Bronchitis, not specified as acute or chronic. - Condition is Stable. - Discharge Instructions: Acute Bronchitis, Adult, How to Use an Inhaler. - Prescriptions for Prednisone 20 mg Oral Tablet - take 3 tablet by ORAL route once daily for 5 days; 15 tablet. Xopenex 1.25 mg/3 mL Inhalation Solution for Nebulization - inhale 1 unit by NEBULIZATION route every 8 hours As needed; 1 box. Guaifenesin AC 10- 100 mg/5 mL Oral Liquid - take 10 milliliter by ORAL route every 4 hours As needed; 240 milliliter. - Medication Reconciliation Form, Thank You Letter, Antibiotic Education, Prescription Opioid Use form. - Follow up: Emergency Department; When: As needed; Reason: Worsening of condition. Follow up: Private Physician; When: 2 - 3 days; Reason: Recheck today's complaints, Continuance of care, Re-evaluation by your physician. - Problem is new. - Symptoms have improved. Addendum: 11/01/2020 06:51 Co-signature as Attending Physician, Kamari Salvador MD I agree with the assessment and c burger plan of care. Signatures: Dispatcher [employer] [facility] Kamari Salvador MD MD cha Marinas, Patrick, PERSONAL INJURY PARALEGAL PERSONAL INJURY PARALEGAL pm1 Wilfredo Whyte RN RN bp Acob, Cheryl, RN RN ca1 Corrections: (The following items were deleted from the chart) 10/30 16:01 14:04 CORONAVIRUS+MR.LAB.BRZ ordered. [facility] 17:42 17:16 10/30/2020 17:16 Discharged to Home. Impression: Bronchitis, not specified as bp acute or chronic. Condition is Stable. Discharge Instructions: Acute Bronchitis, Adult, How to Use an Inhaler. Prescriptions for Prednisone 20 mg Oral Tablet - take 3 tablet by ORAL route once daily for 5 days; 15 tablet, Xopenex 1.25 mg/3 mL Inhalation Solution for Nebulization - inhale 1 unit by NEBULIZATION route every 8 hours As needed; 1 box, Guaifenesin AC 10-100 mg/5 mL Oral Liquid - take 10 milliliter by ORAL route every 4 hours As needed; 240 milliliter. and Forms are Medication Reconciliation Form, Thank You Letter, Antibiotic Education, Prescription Opioid Use. Follow up: Emergency Department; When: As needed; Reason: Worsening of condition. Follow up: Private Physician; When: 2 - 3 days; Reason: Recheck today's complaints, Continuance of care, Re-evaluation by your physician. Problem is new. Symptoms have improved. pm1
--- NOTE | 2020-10-30 17:16 | ER ---
Nurse's Notes [facility] Name: Bárbara Beebe Age: 54 yrs Sex: Female : 1965 Arrival Date: 10/30/2020 Time: 13:31 Bed 16 Private MD: Marisa Franklin Diagnosis: Bronchitis, not specified as acute or chronic Presentation: 10/30 13:59 Chief complaint: Patient states: cough, SOB, headache, nausea, body aches x 3 days. ca1 Pain on R shoulder blade. Been using inhaler for the SOB, no relief. Coronavirus screen: Client denies travel out of the [place] in the last 14 days. congestion, cough unrelated to allergies, headache, nausea, shortness of breath, Client presents with at least one sign or symptom that may indicate coronavirus-19. Standard/surgical mask placed on the client. Provider contacted for isolation considerations. Ebola Screen: Patient negative for fever greater than or equal to 101.5 degrees Fahrenheit, and additional compatible Ebola Virus Disease symptoms Patient denies exposure to infectious person. Patient denies travel to an Ebola-affected area in the 21 days before illness onset. No symptoms or risks identified at this time. Initial Sepsis Screen: Does the patient meet any 2 criteria? No. Patient's initial sepsis screen is negative. Does the patient have a suspected source of infection? No. Patient's initial sepsis screen is negative. Risk Assessment: Do you want to hurt yourself or someone else? Patient reports no desire to harm self or others. Onset of symptoms was October 30, 2020. 13:59 Method Of Arrival: Ambulatory ca1 13:59 Acuity: ANGELA 3 ca1 Triage Assessment: 15:20 General: Appears in no apparent distress. uncomfortable, Behavior is cooperative, bp appropriate for age, anxious. Pain: Complains of pain in head. EENT: No deficits noted. Neuro: Reports headache. Cardiovascular: No deficits noted. Respiratory: Reports shortness of breath Onset: The symptoms/episode began/occurred 3 DAYS, the patient has moderate shortness of breath. GI: No signs and/or symptoms were reported involving the gastrointestinal system. : No signs and/or symptoms were reported regarding the genitourinary system. Derm: No deficits noted. Musculoskeletal: No deficits noted. Historical: - Allergies: 14:02 UNKNOWN STEROID; ca1 - PMHx: 14:02 COPD; Crohn's; Hypertension; psoriasis; ca1 - PSHx: 14:02 Appendectomy; Hysterectomy; Tonsillectomy; back surgery; ca1 - Immunization history:: Flu vaccine is up to date. - Social history:: Smoking status: Patient reports the use of cigarette tobacco products, smokes one-half pack cigarettes per day. Screenin:20 Abuse screen: Denies threats or abuse. Denies injuries from another. Nutritional bp screening: No deficits noted. Tuberculosis screening: No symptoms or risk factors identified. Fall Risk None identified. Assessment: 15:20 General: SEE TRIAGE NOTE. Cardiovascular: Rhythm is regular. Respiratory: Airway is bp patent Respiratory effort is even, unlabored, Breath sounds with wheezes bilaterally. 16:30 Reassessment: No changes from previously documented assessment. Patient and/or family bp updated on plan of care and expected duration. Pain level reassessed. Patient is alert, oriented x 3, equal unlabored respirations, skin warm/dry/pink. 17:41 Reassessment: PT D/C HOME AMBULATORY, DX WITH BRONCHITIS. bp Vital Signs: 13:59 BP 152 / 93; Pulse 83; Resp 16 S; Temp 97.1(TE); Pulse Ox 99% on R/A; Weight 65.77 kg ca1 (R); Height 5 ft. 2 in. (157.48 cm) (R); Pain 7/10; 15:39 BP 158 / 98; Pulse 69; Resp 18; Temp 98.0(O); Pulse Ox 97% ; mh5 16:36 BP 156 / 120; Pulse 73; Resp 16; Pulse Ox 100% ; bp 17:41 BP 150 / 75; Pulse 78; Resp 17; Temp 98; Pulse Ox 95% ; bp 13:59 Body Mass Index 26.52 (65.77 kg, 157.48 cm) ca1 ED Course: 13:31 Patient arrived in ED. am2 13:31 Marisa Franklin MD is Private Physician. am2 14:01 Triage completed. ca1 14:02 Arm band placed on right wrist. ca1 14:27 Chest Pa And Lat (2 Views) XRAY In Process Unspecified. EDMS 15:20 Patient has correct armband on for positive identification. Bed in low position. Call bp light in reach. Side rails up X2. 15:21 Salo Golden NP is PHCP. pm1 15:21 Kamari Salvador MD is Attending Physician. pm1 15:22 Wilfredo Whyte, RN is Primary Nurse. bp 15:38 COVID swab sent to lab. Flu and/or RSV swab sent to lab. 5 17:41 No provider procedures requiring assistance completed. Patient did not have IV access bp during this emergency room visit. Administered Medications: 16:05 Drug: Xopenex (3) 1.25 mg Route: Inhalation; bp 16:05 Drug: SOLU-Medrol 125 mg Route: IM; Site: left deltoid; bp 17:42 Follow up: Response: No adverse reaction bp Outcome: 17:16 Discharge ordered by . pm1 17:41 Discharged to home ambulatory. bp 17:41 Condition: stable 17:41 Discharge instructions given to patient, Instructed on discharge instructions, follow up and referral plans. medication usage, Demonstrated understanding of instructions, follow-up care, medications, Prescriptions given X 3. 17:42 Patient left the ED. bp Signatures: Dispatcher [employer] EDMS Salo Golden NP INORGANIC CHEMIST pm1 Dulce Tafoya 5 Fabiana Mcmahon am2 Wilfredo Whyte, RN RN bp Dorys Singh RN RN ca1 Corrections: (The following items were deleted from the chart) 14:01 13:59 Chief complaint: Patient states: cough, SOB, headache, nausea, body aches x 3 ca1 days. Pain on R shoulder blade ca1 16:01 14:05 CORONAVIRUS+MR.LAB.SAÚL drawn and sent. ca1 EDMS
[2020-10-30 17:53] VITALS: BP 150/75; TEMP 98; O2SAT 95
== END 2020-10-30 17:42 | disposition home or self-care (01) ==
LOC: ER 13:30
DX: J40 Bronchitis, not specified as acute or chronic (principal); Z20.822 Contact with and (suspected) exposure to COVID-19; I10 Essential (primary) hypertension; F17.210 Nicotine dependence, cigarettes, uncomplicated; Z88.8 Allergy status to other drugs, medicaments and biological substances
CPT/HCPCS: 0240U; 71046; 96372; 99284; J2930

== ENCOUNTER 2021-01-24 15:02 | Emergency (ER) | payer OTHER, SELFPAY ==
--- OUTSIDE RECORDS SUMMARY | 2021-01-24 15:31 | XMS REPORT | Continuity of Care Document ---
:1965 Author Organization [facility] t Address [address] [place] [address] Care Team Providers Name Role Phone [facility] Primary Care Physician Unavailable Yves Gaston [...] Clinicians Facility Department ID 2020-10-10 2020-10-10 Patient Alek [facility] [id number] 00:00:00 00:00:00 Outreach [facility] [id number] Yves [facility] [id number] YEISON [id number] 2020-04-04 2020-04-04 Office LUCIUS Taveras [id number] 10:33:36 10:48:36 Visit [facility]ly [facility] [id number] [place] [id number] [place] [phone] Medical [facility] Office Building 2017-03-26 2017-03-26 Emergency E [facility] [id number] Medical 14:55:00 14:55:00 [facility] 2017-03-07 2017-03-07 Emergency E [facility] [id number] Medical 17:01:00 17:01:00 [facility] 2017-02-22 2017-02-22 Emergency E [facility] [id number] Medical 11:40:00 11:40:00 [facility] Results Test Description Test Time Test [...] /LPF 0-20 A Urinalysis with Culture, if [id number] 16:19:42 Test Item Value Reference Range Interpretation [...] = UA Micro Ind?) rule GL_SET_UA_MICRO _IND [id number] 16:13:11 Test Item Value Reference Range Interpretation Comments Amylase Level (test code = 53 IntlUnit/L 25-115 Amylase Level) Comprehensive Metabolic [id number] 16:13:11 Test Item Value Reference Range Interpretation [...] = AST) 20 IntlUnit/L 15-37 Comprehensive Metabolic [id number] 16:13:11 Test Item Value Reference Range Interpretation [...] >60 mL/min/1.73 m2 N AA) Comprehensive Metabolic [id number] 16:13:11 Test Item Value Reference Range Interpretation [...] >60 mL/min/1.73 m2 N eGFR Non-AA) Automated [id number] 16:12:15 Test Item Value Reference Range Interpretation Comments Neutro Auto (test code = Neutro Auto) 55.4 % N Lymph Auto (test code = Lymph Auto) 36.3 % N [place] Auto (test code = [place] Auto) 5.5 % N Eos, Auto (test code = Eos, Auto) 1.9 % N Basophil Auto (test code = Basophil 0.9 % N Auto) Neutro Absolute (test code = Neutro 4.9 x10 2.7-7.3 Absolute) Lymph Absolute (test code = Lymph 3.2 x10 0.8-3.5 Absolute) [place] Absolute (test code = [place] 0.5 x10 0.3-0.9 Absolute) Eos Absolute (test code = Eos 0.2 x10 0.0-0.3 Absolute) Baso Absolute (test code = Baso 0.1 x10 0.0-0.1 Absolute) Complete Blood Count with [id number] 16:12:14 Test Item Value Reference Range Interpretation [...] created by = Slide Review) GL_SET_SLIDE _REVIEW_A [facility] Comprehensive Metabolic [id number] 14:21:14 Test Item Value Reference Range Interpretation [...] = AST) 22 IntlUnit/L 15-37 Comprehensive Metabolic [id number] 14:21:14 Test Item Value Reference Range Interpretation [...] >60 mL/min/1.73 m2 N AA) Comprehensive Metabolic [id number] 14:21:14 Test Item Value Reference Range Interpretation [...] m2 N eGFR Non-AA) Pro B Natriuretic [id number] 14:05:15 Test Item Value Reference Range Interpretation [...] f ailure likely Complete Blood Count with Pbsabwbncekr4840-13-56 13:59:12 Test Item Value Reference Range Interpretation [...] = Slide Review) GL_SET_SLIDE _REVIEW_A UTO Automated [id number] 13:59:12 Test Item Value Reference Range Interpretation Comments Neutro Auto (test code = Neutro Auto) 68.5 % N Lymph Auto (test code = Lymph Auto) 24.5 % N [place] Auto (test code = [place] Auto) 5.6 % N Eos, Auto (test code = Eos, Auto) 1.0 % N Basophil Auto (test code = Basophil 0.4 % N Auto) Neutro Absolute (test code = Neutro 8.2 x10 2.7-7.3 H Absolute) Lymph Absolute (test code = Lymph 2.9 x10 0.8-3.5 Absolute) [place] Absolute (test code = [place] 0.7 x10 0.3-0.9 Absolute) Eos Absolute (test code = Eos 0.1 x10 0.0-0.3 Absolute) Baso Absolute (test code = Baso 0.0 x10 0.0-0.1 Absolute) XR Chest 2 [id number] 13:41:47Patient: KEKE HAYNES Date/Time02/24/201913:18 CDTReason for ExamShortness [...] (Electronic Signature): 02/24/2019 1:41 pmXR Chest 2 [id number] 10:31:38Patient: KEKE HAYNES Date/Time10/06/2018 10:23 CDTReason for [...] 09/22/2018 2:38 pmXR Ankle Complete 3+ Views [id number] 07:53:52Patient: KEKE HAYNES Date/Time09/04/2018 22:40 CSTReason for [...] DT/TM: 09/05/2018 7:49 amSigned by: MD Cruz, SamerSigned (Electronic Signature): 09/05/2018 7:53 amXR Foot Complete 3+ Views [id number] 07:53:39Patient: KEKE HAYNES Date/Time09/04/2018 22:40 CSTReason for [...] 09/05/2018 7:53 amCT Abdomen and Pelvis w/o Qsbzrjlp5415-06-04 14:15:18Patient: KEKE HAYNES Date/Time07/09/2018 13:45 CSTReason for [...] MD Leary Craig ASigned (Electronic Signature): 07/09/2018 2:[id number] 18:24:00 Test Item Value Reference Range Interpretation [...] BACTERIA (test code = NEGATIVE NONE BACTERIA) [id number] 18:16:00 Test Item Value Reference Range Interpretation [...] glucose = GLUCOSE) normal <100 MG/ DL- [employer] recommendation* * CALCIUM (test [...] GFR) mL/min/1.73m2 mL/min/1.73m2 is considered norm al. [id number] 18:16:00 Test Item Value Reference Range Interpretation Comments LIPASE (test code = LIPA) 95 U/L 23-300 [id number] 18:07:00 Test Item Value Reference Range Interpretation [...] 3.5 K/UL 1.2-7.2 = NEUT) OCCULT BLOOD, [id number] 06:35:00 Test Item Value Reference Range Interpretation Comments OCCULT BLOOD FECES (test code = NEGATIVE NEGATIVE OCCBLFEC) LOT# CRD (test code = LOT# CRD) 08824 EXP CRD (test code = EXP CRD) 10- LOT# DVL (test code = LOT# DVL) 74528 EXP DVL (test code = EXP DVL) 7-21 INT QC (test code = INT QC) PASSED [id number] 00:14:00 Test Item Value Reference Range Interpretation [...] glucose = GLUCOSE) normal <100 MG/ DL- [employer] recommendation* * CALCIUM (test [...] GFR) mL/min/1.73m2 mL/min/1.73m2 is considered norm al. [id number] 00:14:00 Test Item Value Reference Range Interpretation Comments LIPASE (test code = LIPA) 134 U/L 23-300 ABDOMEN 2 [id number] 21:18:[address] [id number] IMAGING REPORTPatient Name: Amaris HAYNES of Service: [id number]: 52 Sex: F Order #: [id number] Room: ERDOB: 1965 X-Ray Number: [id number] Record Number: [id number] Hospital Number: [id number] Physician: YANNA HAROOrdering Physician: Mallika MAY.History: Abdomen [...] PMLegally authenticated by CLARA Talley 2018-04-04 21:16:02 [id number] 17:07:00 Test Item Value Reference Range Interpretation [...] (test code 5.6 K/UL 1.2-7.2 = NEUT) [id number] 17:06:00 Test Item Value Reference Range Interpretation [...] (test code = UAMICRO) NO CT ABDOMEN/PELVIS [id number] 16:28:[address] [id number] IMAGING REPORTPatient Name: Amaris HAYNES of Service: [id number]: 52 Sex: F Order #: [id number] [facility] [place] 1965 X-Ray Number: [id number] Record Number: [id number] Hospital Number: [id number] Physician: YANNA HAROOrdering Physician: DANETTE CLARK ABDOMEN/PELVIS [...] 4:25 PMLegally authenticated by GEORGIA WISEMAN 2018-04-01 16:25:[id number] 14:29:00 Test Item Value Reference Range Interpretation Comments BLOOD TYPE (test code = TYPE) O Rh Positive ANTIBODY SCREEN (test code = NEGATIVE NEGATIVE SCREEN) PROTHROMBIN TIME WITH [id number] 14:13:00 Test Item Value Reference Range Interpretation Comments PROTHROMBIN TIME 12.5 SECONDS 12.0-14.6 INR Usual R john = 2 (test code = PT) to 3 for pr evention of deep vein thrombosis (DVT ) INR (test code = INR) 0.9 [id number] 14:13:00 Test Item Value Reference Range Interpretation Comments PTT (test code = 37.8 SECONDS 24.4-36.3 H HEPARIN THE RAPEUTIC PTT) RANGE 57-92 SEC ONDS [id number] 14:00:00 Test Item Value Reference Range Interpretation [...] glucose = GLUCOSE) normal <100 MG/ DL- [employer] recommendation* * CALCIUM (test [...] GFR) mL/min/1.73m2 mL/min/1.73m2 is considered norm al. [id number] 14:00:00 Test Item Value Reference Range Interpretation Comments LIPASE (test code = LIPA) 40 U/L 23-300 [id number] 13:51:00 Test Item Value Reference Range Interpretation [...] code 8.8 K/UL 1.2-7.2 H = NEUT) [id number] 13:22:00 Test Item Value Reference Range Interpretation [...] (test code = UAMICRO) NO SPINE LUMBAR [id number] 13:32:[address] [id number] IMAGING REPORTPatient Name: Amaris HAYNES of Service: [id number]: 51 Sex: F Order #: [id number] [facility] 1965 [facility] Number: [id number] Record Number: [id number] Hospital Number: [id number] Physician: MICHELLE YEOrdering Physician: PRITI HONGDOUGLAS SPINE 5 VIEWS:CLINICALHISTORY: Back pain radiates into [...] 1:29 PMLegally authenticated by JENNIFER Daniels 2017-10-16 13:29:[id number] 12:33:00 Test Item Value Reference Range Interpretation [...] BACTERIA (test code = NEGATIVE NONE BACTERIA) 15281& [id number] 06:46:50CHEST 2 VIEWREASON FOR STUDY: [id number]-[id number]:The heart and mediastinum are within normal limits. Minor linearscarring or atelectasis is noted involving the right infrahilar region.Lungs appear slightly hyperinflated. Bony structures appear intact. . No other significant findings. IMPRESSION: Minor linear scarring or atelectasis involving the right infrahilarregion. Chest is otherwise clear.
[2021-01-24] MEDS ORDERED: ALBUTEROL 2.5 MG/3 ML NEB SOL ONE (16:21)
[2021-01-24] MEDS ORDERED: IPRATROPIUM BROM 0.5MG/2.5ML ONE (16:21)
[2021-01-24] MEDS ORDERED: ONDANSETRON 4 MG/2 ML VIAL ONE (16:32)
[2021-01-24] MEDS ORDERED: MORPHINE 4 MG/ML SYR ONE (16:32)
[2021-01-24] MEDS ORDERED: PANTOPRAZOLE 40 MG INJ ONE (16:32)
[2021-01-24] MEDS ORDERED: NA CHLORIDE 0.9% 1,000 ML ONE (16:32)
[2021-01-24 16:39] LABS: Absolute Lymphocytes (CBC) 3.2 K/uL (0.7-4.9); Basophils % 0.5 % (0-1.3); Hematocrit 39.5 % (36.0-45.0); Lymphocytes % 43.8 % (15.3-44.8); MPV 7.1 fL (7.6-11.3); RBC Red Blood Cell Count 4.46 M/uL (3.86-4.86)
[2021-01-24 16:48] LABS: ALT/SGPT 30 U/L (12-78); AST/SGOT 17 U/L (15-37); Albumin 3.9 g/dL (3.4-5.0); Alkaline Phosphatase 109 U/L (45-117); BUN Blood Urea Nitrogen 10 mg/dL (7-18); Bicarbonate 26 mmol/L (21-32); Bilirubin Direct < 0.1 mg/dL (0-0.2); Bilirubin Total 0.4 mg/dL (0.2-1.0); Glucose Level 99 mg/dL (74-106); Lipase 45 U/L (73-393); Potassium 3.7 mmol/L (3.5-5.1); Protein, Total 7.4 g/dL (6.4-8.2); Sodium Level 141 mmol/L (136-145)
--- NOTE | 2021-01-24 17:36 | RAD REPORT ---
EXAM DESCRIPTION: CT - Abdomen Pelvis W Contrast - 01/24/2021 5:04 pm CLINICAL HISTORY: Abdominal pain COMPARISON: September 2020 TECHNIQUE: Computed axial tomography of the abdomen pelvis was obtained. 100 cc Isovue-300 was admin istered intravenously. Oral contrast was not requested which limits evaluation of bowel. All CT scans are performed using dose optimization technique as appropriate and may include automated exposure control or mA/KV adjustment according to patient size. FINDINGS: Sub centimeter low-density area within the liver are too small to characterize by CT crite sachin. Cholecystectomy. Common bile duct remains prominent. Splenic granulomata. The Pancreas, adrenal and kidneys appear unremarkable. There is no evidence of diverticulitis. Hysterectomy. No adnexal mass seen IMPRESSION: Prominence of the biliary tree may be physiologic or secondary to pathology in the regio n of the distal common bile duct. This should be correlated clinically and with appropriate lab value s
--- NOTE | 2021-01-24 17:36 | RAD REPORT ---
EXAM DESCRIPTION: Phuc Single View01/24/2021 4:56 pm CLINICAL HISTORY: Shortness of breath COMPARISON: October 2020 FINDINGS: The lungs appear clear of acute infiltrate. The heart is normal size IMPRESSION: No acute abnormalities displayed
--- NOTE | 2021-01-24 18:26 | EDPHYS ---
Physician Documentation [facility] Name: Bárbara Beebe Age: 55 yrs Sex: Female : 1965 Arrival Date: 01/24/2021 Time: 15:05 Bed 28 Private MD: ED Physician Toñito Baldwin HPI: 01/24 16:31 This 55 yrs old Female presents to ER via Ambulatory with complaints of kb Abdominal Swelling, Weakness. 16:31 The patient presents with abdominal pain that is diffuse, abdominal distention that is kb diffuse. Onset: The symptoms/episode began/occurred 4 day(s) ago. The symptoms do not radiate. Associated signs and symptoms: Pertinent positives: blood in stools, shortness of breath. The symptoms are described as constant. Modifying factors: The symptoms are alleviated by nothing, the symptoms are aggravated by nothing. Severity of pain: At its worst the pain was moderate in the emergency department the pain is unchanged. The patient has experienced similar episodes in the past, a few times. The patient has not recently seen a physician. Pt reports abd pain and swelling with black, tarry stools for 4 days. Also reports weakness and shortness of breath. Historical: - Allergies: 15:17 UNKNOWN STEROID; ll1 - PMHx: 15:17 COPD; Crohn's; Hypertension; psoriasis; bleeding ulcers; ll1 - PSHx: 15:17 hysterectomy; Cholecystectomy; Appendectomy; ll1 - Immunization history:: Client reports having NOT received the Covid vaccine. Flu vaccine is up to date. - Social history:: Smoking status: Patient reports the use of cigarette tobacco products, smokes one-half pack cigarettes per day. ROS: 16:30 Constitutional: Negative for fever, chills, and weight loss. kb 16:30 Respiratory: Positive for shortness of breath. 16:30 Abdomen/GI: Positive for abdominal pain, abdominal distension, black/tarry stool. 16:30 Neuro: Positive for weakness. 16:30 All other systems are negative. Exam: 16:30 Constitutional: This is a well developed, well nourished patient who is awake, alert, kb and in no acute distress. Head/Face: Normocephalic, atraumatic. ENT: Moist Mucous membranes Cardiovascular: Regular rate and rhythm with a normal S1 and S2. No gallops, murmurs, or rubs. No pulse deficits. Skin: Warm, dry with normal turgor. Normal color. MS/ Extremity: Pulses equal, no cyanosis. Neurovascular intact. Full, normal range of motion. Neuro: Awake and alert, GCS 15, oriented to person, place, time, and situation. Moves all extremities. Normal gait. Psych: Awake, alert, with orientation to person, place and time. Behavior, mood, and affect are within normal limits. 16:30 Respiratory: the patient does not display signs of respiratory distress, Respirations: normal, Breath sounds: wheezing: inspiratory expiratory that is moderate, is scattered. 16:30 Abdomen/GI: Inspection: distension, that is mild, that is moderate, in the abdomen diffusely, Bowel sounds: normal, Palpation: soft, in all quadrants, moderate abdominal tenderness, in all quadrants. 01/25 00:37 Abdomen/GI: Rectal exam: rectal tone normal, Stool: normal, guaiac negative. kb Vital Signs: 01/24 15:19 BP 144 / 67; Pulse 86; Resp 17; Temp 99.2; Pulse Ox 99% ; Weight 68.04 kg; Height 5 ft. ll1 2 in. (157.48 cm); Pain 8/10; 15:31 BP 137 / 70; Pulse 86; Resp 22; Pulse Ox 97% on R/A; Pain 7/10; ld1 15:58 BP 122 / 71 LA Supine (man/); Pulse 81; Resp 18; ld1 16:00 BP 134 / 86 LA Sitting (auto/); Pulse 82; ld1 16:01 BP 127 / 84 LA Standing (auto/); Pulse 85; ld1 16:25 BP 114 / 78; Pulse 76; Resp 17; Pulse Ox 100% on R/A; ld1 17:07 BP 126 / 76; Pulse 82; Resp 18; Pulse Ox 99% on R/A; ld1 18:16 BP 132 / 84; Pulse 76; Resp 18; Pulse Ox 100% ; ld1 15:19 Body Mass Index 27.44 (68.04 kg, 157.48 cm) ll1 MDM: 15:35 Patient medically screened. kb 16:30 Data reviewed: vital signs, nurses notes. Data interpreted: Pulse oximetry: on room air kb is 100 %. Interpretation: normal. 18:25 Counseling: I had a detailed discussion with the patient and/or guardian regarding: the kb historical points, exam findings, and any diagnostic results supporting the discharge/admit diagnosis, lab results, radiology results, the need for outpatient follow up, a family practitioner, to return to the emergency department if symptoms worsen or persist or if there are any questions or concerns that arise at home. 01/24 15:35 Order name: Basic Metabolic Panel; Complete Time: 16:51 kb 01/24 15:35 Order name: CBC with Diff; Complete Time: 16:46 kb 01/24 15:35 Order name: Hepatic Function; Complete Time: 16:51 kb 01/24 15:35 Order name: Lipase; Complete Time: 16:51 kb 01/24 16:06 Order name: Type And Screen; Complete Time: 17:11 kb 01/24 17:37 Order name: ABO/RH no charge; Complete Time: 17:37 EDMS 01/24 15:54 Order name: Chest Single View XRAY; Complete Time: 17:37 kb 01/24 15:54 Order name: CT Abd/Pelvis - IV Contrast Only; Complete Time: 17:37 kb 01/24 15:35 Order name: IV Saline Lock; Complete Time: 16:24 kb 01/24 15:35 Order name: Labs collected and sent; Complete Time: 16:24 kb 01/24 15:54 Order name: Orthostatics; Complete Time: 16:08 kb Administered Medications: 16:08 Drug: DuoNeb (albuterol 2.5 mg, ipratropium 0.5 mg) (3:1) (2.5 mg - 0.5 mg) 3 ml Route: ld1 Nebulizer; 16:24 Follow up: Response: No adverse reaction ld1 16:23 Drug: NS 0.9% 1000 ml Route: IV; Rate: 1000 ml; Site: left antecubital; ld1 16:24 Follow up: Response: No adverse reaction; IV Status: Infusion continued ld1 16:23 Drug: ProTONIX (pantoprazole) 40 mg Route: IVP; Site: left antecubital; ld1 16:23 Follow up: Response: No adverse reaction ld1 16:23 Drug: Zofran (Ondansetron) 4 mg Route: IVP; Site: left antecubital; ld1 16:23 Follow up: Response: No adverse reaction ld1 16:23 Drug: morphine 4 mg Route: IVP; Site: left antecubital; ld1 16:23 Follow up: Response: No adverse reaction ld1 Disposition: 19:06 Co-signature as Attending Physician, Toñito Baldwin MD I agree with the assessment and kdr plan of care. Disposition Summary: 01/24/21 18:26 Discharge Ordered Location: Home kb Condition: Stable kb Diagnosis - Abdominal pain, unspecified kb Followup: kb - With: Emergency Department - When: As needed - Reason: Worsening of condition Followup: kb - With: Private Physician - When: 2 - 3 days - Reason: Recheck today's complaints, Continuance of care, Re-evaluation by your physician Discharge Instructions: - Discharge Summary Sheet kb - Abdominal Pain, Adult, Lbij-tz-Cnug kb Forms: - Medication Reconciliation Form kb - Thank You Letter kb - Antibiotic Education kb - Prescription Opioid Use kb Prescriptions: - dicyclomine 20 mg Oral Tablet - take 1 tablet by ORAL route 4 times per day; 20 tablet; Refills: 0, Product kb Selection Permitted Signatures: Dispatcher [employer] EDMS Delilah Perez, DENTAL MECHANIC-C DENTAL MECHANIC-Toñito Burton MD MD kdr Le Taylor RN RN ll1 Roxanne Luke, RN RN ld1
--- NOTE | 2021-01-24 18:26 | ER ---
Nurse's Notes [facility] Priya Name: Bárbara Beebe Age: 55 yrs Sex: Female : 1965 Arrival Date: 01/24/2021 Time: 15:05 Bed 28 Private MD: Diagnosis: Abdominal pain, unspecified Presentation: 01/24 15:19 Chief complaint: Patient states: Epigastric pain for 4 days with black tarry stools. ll1 History of bleeding ulcers, has had blood transfusions in the past. Feels weak and dizzy. Coronavirus screen: Client denies travel out of the [place] in the last 14 days. At this time, the client does not indicate any symptoms associated with coronavirus-19. Ebola Screen: Patient denies travel to an Ebola-affected area in the 21 days before illness onset. Initial Sepsis Screen: Does the patient meet any 2 criteria? No. Patient's initial sepsis screen is negative. Does the patient have a suspected source of infection? Yes: Acute abdominal pain. Risk Assessment: Do you want to hurt yourself or someone else? Patient reports no desire to harm self or others. Onset of symptoms was January 21, 2021. 15:19 Method Of Arrival: Ambulatory ll1 15:19 Acuity: ANGELA 3 ll1 Historical: - Allergies: 15:17 UNKNOWN STEROID; ll1 - PMHx: 15:17 COPD; Crohn's; Hypertension; psoriasis; bleeding ulcers; ll1 - PSHx: 15:17 hysterectomy; Cholecystectomy; Appendectomy; ll1 - Immunization history:: Client reports having NOT received the Covid vaccine. Flu vaccine is up to date. - Social history:: Smoking status: Patient reports the use of cigarette tobacco products, smokes one-half pack cigarettes per day. Screenin:31 Abuse screen: Denies threats or abuse. Denies injuries from another. Nutritional ld1 screening: No deficits noted. Tuberculosis screening: No symptoms or risk factors identified. Fall Risk None identified. Assessment: 15:31 General: Appears in no apparent distress. comfortable, Behavior is calm, cooperative, ld1 appropriate for age. Pain: Complains of pain in right upper quadrant and left upper quadrant Pain does not radiate. Pain currently is 7 out of 10 on a pain scale. Quality of pain is described as stabbing, throbbing, Pain began 2-3 days ago. Is continuous. Neuro: Level of Consciousness is awake, alert, obeys commands, Oriented to person, place, time, situation, Appropriate for age. Cardiovascular: Capillary refill < 3 seconds Patient's skin is warm and dry. Respiratory: Airway is patent Respiratory effort is even, unlabored, Respiratory pattern is regular, symmetrical. GI: Abdomen is round distended, Bowel sounds present X 4 quads. Abd is soft Abdomen is tender to palpation in right upper quadrant and left upper quadrant Reports bloody stool, epigastric pain. : No signs and/or symptoms were reported regarding the genitourinary system. EENT: No signs and/or symptoms were reported regarding the EENT system. Derm: No signs and/or symptoms reported regarding the dermatologic system. Musculoskeletal: No signs and/or symptoms reported regarding the musculoskeletal system. 16:25 Reassessment: Patient appears in no apparent distress at this time. No changes from ld1 previously documented assessment. Patient and/or family updated on plan of care and expected duration. Pain level reassessed. Patient is alert, oriented x 3, equal unlabored respirations, skin warm/dry/pink. 17:07 Reassessment: Patient appears in no apparent distress at this time. No changes from ld1 previously documented assessment. Patient and/or family updated on plan of care and expected duration. Pain level reassessed. 18:16 Reassessment: Patient appears in no apparent distress at this time. No changes from ld1 previously documented assessment. Patient and/or family updated on plan of care and expected duration. Pain level reassessed. Patient is alert, oriented x 3, equal unlabored respirations, skin warm/dry/pink. 18:31 Reassessment:. ld1 Vital Signs: 15:19 BP 144 / 67; Pulse 86; Resp 17; Temp 99.2; Pulse Ox 99% ; Weight 68.04 kg; Height 5 ft. ll1 2 in. (157.48 cm); Pain 8/10; 15:31 BP 137 / 70; Pulse 86; Resp 22; Pulse Ox 97% on R/A; Pain 7/10; ld1 15:58 BP 122 / 71 LA Supine (man/); Pulse 81; Resp 18; ld1 16:00 BP 134 / 86 LA Sitting (auto/); Pulse 82; ld1 16:01 BP 127 / 84 LA Standing (auto/); Pulse 85; ld1 16:25 BP 114 / 78; Pulse 76; Resp 17; Pulse Ox 100% on R/A; ld1 17:07 BP 126 / 76; Pulse 82; Resp 18; Pulse Ox 99% on R/A; ld1 18:16 BP 132 / 84; Pulse 76; Resp 18; Pulse Ox 100% ; ld1 15:19 Body Mass Index 27.44 (68.04 kg, 157.48 cm) ll1 ED Course: 15:05 Patient arrived in ED. ds1 15:17 Arm band placed on. ll1 15:20 Triage completed. ll1 15:21 Roxanne Luke, FRANKI is Primary Nurse. ld1 15:31 Patient has correct armband on for positive identification. Placed in gown. Bed in low ld1 position. Call light in reach. Side rails up X2. quality assurance monitor chassis on. Pulse ox on. NIBP on. Door closed. Noise minimized. Warm blanket given. 15:31 No provider procedures requiring assistance completed. ld1 15:35 Delilah Perez FNP-C is PHCP. kb 15:35 Toñito Baldwin MD is Attending Physician. kb 16:24 Type And Screen Sent. ld1 16:56 Chest Single View XRAY In Process Unspecified. EDMS 17:04 CT Abd/Pelvis - IV Contrast Only In Process Unspecified. EDMS 18:31 IV discontinued, intact, bleeding controlled, No redness/swelling at site. ld1 Administered Medications: 16:08 Drug: DuoNeb (albuterol 2.5 mg, ipratropium 0.5 mg) (3:1) (2.5 mg - 0.5 mg) 3 ml Route: ld1 Nebulizer; 16:24 Follow up: Response: No adverse reaction ld1 16:23 Drug: NS 0.9% 1000 ml Route: IV; Rate: 1000 ml; Site: left antecubital; ld1 16:24 Follow up: Response: No adverse reaction; IV Status: Infusion continued ld1 16:23 Drug: ProTONIX (pantoprazole) 40 mg Route: IVP; Site: left antecubital; ld1 16:23 Follow up: Response: No adverse reaction ld1 16:23 Drug: Zofran (Ondansetron) 4 mg Route: IVP; Site: left antecubital; ld1 16:23 Follow up: Response: No adverse reaction ld1 16:23 Drug: morphine 4 mg Route: IVP; Site: left antecubital; ld1 16:23 Follow up: Response: No adverse reaction ld1 Outcome: 18:26 Discharge ordered by MD. mars 18:31 Discharged to home ambulatory. ld1 18:31 Condition: stable 18:31 Discharge instructions given to patient, Instructed on discharge instructions, follow up and referral plans. medication usage, Demonstrated understanding of instructions, follow-up care, medications. 18:32 Patient left the ED. ld1 Signatures: Dispatcher [employer] EDMS Delilah Perez, CHOREOGRAPHY DIRECTOR-C CHOREOGRAPHY DIRECTOR-Wilda Valencia ds1 Le Taylor RN RN ll1 Roxanne Luke RN RN ld1 Corrections: (The following items were deleted from the chart) 16:08 16:06 BP 122 / 71 Supine Manual L Arm; Pulse 81bpm; Resp 18bpm; ld1 ld1 16:08 16:06 BP 134 / 86 Sitting Auto L Arm; Pulse 82bpm; ld1 ld1 16:08 16:06 BP 127 / 84 Standing Auto L Arm; Pulse 85bpm; ld1 ld1
[2021-01-24] MEDS ORDERED: DICYCLOMINE HCL 10 MG CAP ONE (18:41)
[2021-01-24 18:42] VITALS: TEMP 99.2
[2021-01-24 18:51] VITALS: BP 132/84; O2SAT 100
== END 2021-01-24 18:32 | disposition home or self-care (01) ==
LOC: ER 15:02
DX: R10.9 Unspecified abdominal pain (principal); F17.210 Nicotine dependence, cigarettes, uncomplicated; I10 Essential (primary) hypertension; Z88.8 Allergy status to other drugs, medicaments and biological substances
CPT/HCPCS: 85025; 80048; 36415; 86900; 86850; 86901; 80076; 83690; 74177; 71045; 96375; 96374; 99285; Q9967; C9113; J7030; J2405

== ENCOUNTER 2021-02-26 16:41 | Emergency (ER) | payer OTHER ==
--- OUTSIDE RECORDS SUMMARY | 2021-02-26 16:44 | XMS REPORT | Continuity of Care Document ---
:1965 Author Organization [facility] t Address [address] [place] [address] Care Team Providers Name Role Phone [facility] Primary Care Physician Unavailable Yves Gaston [...] Facility Department ID 2020-10-10 2020-10-10 Patient Alek [facility] [id number] 00:00:00 00:00:00 Outreach [facility] [id number] Yves [facility] [id number] [place]ISON [id number] [id number] 2020-04-04 2020-04-04 Office Nitin PAMARIELENA [id number] 10:33:36 10:48:36 Visit [facility] [id number] [place] [id number] [place] [phone] Medical [facility] Office Building 2017-03-26 2017-03-26 Emergency E [facility] [id number] Medical 14:55:00 14:55:00 [facility] 2017-03-07 2017-03-07 Emergency E [facility] [id number] Medical 17:01:00 17:01:00 [facility] 2017-02-22 2017-02-22 Emergency E [facility] [id number] Medical 11:40:00 11:40:00 [facility] Results Test Description Test Time Test [...] /LPF 0-20 A Urinalysis with Culture, if [id number] 16:19:42 Test Item Value Reference Range Interpretation [...] = UA Micro Ind?) rule GL_SET_UA_MICRO _IND [id number] 16:13:11 Test Item Value Reference Range Interpretation Comments Amylase Level (test code = 53 IntlUnit/L 25-115 Amylase Level) Comprehensive Metabolic [id number] 16:13:11 Test Item Value Reference Range Interpretation [...] = AST) 20 IntlUnit/L 15-37 Comprehensive Metabolic [id number] 16:13:11 Test Item Value Reference Range Interpretation [...] >60 mL/min/1.73 m2 N AA) Comprehensive Metabolic [id number] 16:13:11 Test Item Value Reference Range Interpretation [...] >60 mL/min/1.73 m2 N eGFR Non-AA) Automated [id number] 16:12:15 Test Item Value Reference Range Interpretation Comments Neutro Auto (test code = Neutro Auto) 55.4 % N Lymph Auto (test code = Lymph Auto) 36.3 % N Putnam Auto (test code = Putnam Auto) 5.5 % N Eos, Auto (test code = Eos, Auto) 1.9 % N Basophil Auto (test code = Basophil 0.9 % N Auto) Neutro Absolute (test code = Neutro 4.9 x10 2.7-7.3 Absolute) Lymph Absolute (test code = Lymph 3.2 x10 0.8-3.5 Absolute) Putnam Absolute (test code = Putnam 0.5 x10 0.3-0.9 Absolute) Eos Absolute (test code = Eos 0.2 x10 0.0-0.3 Absolute) Baso Absolute (test code = Baso 0.1 x10 0.0-0.1 Absolute) Complete Blood Count with [id number] 16:12:14 Test Item Value Reference Range Interpretation [...] created by = Slide Review) GL_SET_SLIDE _REVIEW_A [facility] Comprehensive Metabolic [id number] 14:21:14 Test Item Value Reference Range Interpretation [...] = AST) 22 IntlUnit/L 15-37 Comprehensive Metabolic [id number] 14:21:14 Test Item Value Reference Range Interpretation [...] >60 mL/min/1.73 m2 N AA) Comprehensive Metabolic [id number] 14:21:14 Test Item Value Reference Range Interpretation [...] m2 N eGFR Non-AA) Pro B Natriuretic [id number] 14:05:15 Test Item Value Reference Range Interpretation [...] f ailure likely Complete Blood Count with [id number] 13:59:12 Test Item Value Reference Range Interpretation [...] = Slide Review) GL_SET_SLIDE _REVIEW_A UTO Automated [id number] 13:59:12 Test Item Value Reference Range Interpretation Comments Neutro Auto (test code = Neutro Auto) 68.5 % N Lymph Auto (test code = Lymph Auto) 24.5 % N Putnam Auto (test code = Putnam Auto) 5.6 % N Eos, Auto (test code = Eos, Auto) 1.0 % N Basophil Auto (test code = Basophil 0.4 % N Auto) Neutro Absolute (test code = Neutro 8.2 x10 2.7-7.3 H Absolute) Lymph Absolute (test code = Lymph 2.9 x10 0.8-3.5 Absolute) Putnam Absolute (test code = Putnam 0.7 x10 0.3-0.9 Absolute) Eos Absolute (test code = Eos 0.1 x10 0.0-0.3 Absolute) Baso Absolute (test code = Baso 0.0 x10 0.0-0.1 Absolute) XR Chest 2 [id number] 13:41:47Patient: KEKE HAYNES Date/Time02/24/201913:18 CDTReason for ExamShortness [...] (Electronic Signature): 02/24/2019 1:41 pmXR Chest 2 [id number] 10:31:38Patient: KEKE HAYNES Date/Time10/06/2018 10:23 CDTReason for [...] 09/22/2018 2:38 pmXR Ankle Complete 3+ Views [id number] 07:53:52Patient: KEKE HAYNES Date/Time09/04/2018 22:40 CSTReason for [...] 09/05/2018 7:53 amXR Foot Complete 3+ Views [id number] 07:53:39Patient: KEKE HAYNES Date/Time09/04/2018 22:40 CSTReason for [...] 09/05/2018 7:53 amCT Abdomen and Pelvis w/o [id number] 14:15:18Patient: KEKE HAYNES Date/Time07/09/2018 13:45 CSTReason for [...] MD Leary Craig ASigned (Electronic Signature): 07/09/2018 2:[id number] 18:24:00 Test Item Value Reference Range Interpretation [...] BACTERIA (test code = NEGATIVE NONE BACTERIA) [id number] 18:16:00 Test Item Value Reference Range Interpretation [...] glucose = GLUCOSE) normal <100 MG/ DL- [employer] recommendation* * CALCIUM (test [...] GFR) mL/min/1.73m2 mL/min/1.73m2 is considered norm al. [id number] 18:16:00 Test Item Value Reference Range Interpretation Comments LIPASE (test code = LIPA) 95 U/L 23-300 [id number] 18:07:00 Test Item Value Reference Range Interpretation [...] 3.5 K/UL 1.2-7.2 = NEUT) OCCULT BLOOD, [id number] 06:35:00 Test Item Value Reference Range Interpretation Comments OCCULT BLOOD FECES (test code = NEGATIVE NEGATIVE OCCBLFEC) LOT# CRD (test code = LOT# CRD) 59758 EXP CRD (test code = EXP CRD) 10- LOT# DVL (test code = LOT# DVL) 53485 EXP DVL (test code = EXP DVL) 7-21 INT QC (test code = INT QC) PASSED [id number] 00:14:00 Test Item Value Reference Range Interpretation [...] glucose = GLUCOSE) normal <100 MG/ DL- [employer] recommendation* * CALCIUM (test [...] GFR) mL/min/1.73m2 mL/min/1.73m2 is considered norm al. [id number] 00:14:00 Test Item Value Reference Range Interpretation Comments LIPASE (test code = LIPA) 134 U/L 23-300 ABDOMEN 2 [id number] 21:18:[address] [id number] IMAGING REPORTPatient Name: Amaris HAYNES of Service: [id number]: 52 Sex: F Order #: [id number] Room: ERDOB: 1965 X-Ray Number: [id number] Record Number: [id number] Hospital Number: [id number] Physician: YANNA HAROOrdering Physician: Mallika MAY.History: Abdomen [...] PMLegally authenticated by CLARA Talley 2018-04-04 21:16:02 [id number] 17:07:00 Test Item Value Reference Range Interpretation [...] (test code 5.6 K/UL 1.2-7.2 = NEUT) [id number] 17:06:00 Test Item Value Reference Range Interpretation [...] (test code = UAMICRO) NO CT ABDOMEN/PELVIS [id number] 16:28:[address] [id number] IMAGING REPORTPatient Name: Amaris HAYNES of Service: [id number]: 52 Sex: F Order #: [id number] [facility] 1965 X-[facility] Number: [id number] Record Number: [id number] Hospital Number: [id number] Physician: YANNA HAROOrdering Physician: DANETTE CLARK ABDOMEN/PELVIS [...] 4:25 PMLegally authenticated by GEORGIA WISEMAN 2018-04-01 16:25:[id number] 14:29:00 Test Item Value Reference Range Interpretation Comments BLOOD TYPE (test code = TYPE) O Rh Positive ANTIBODY SCREEN (test code = NEGATIVE NEGATIVE SCREEN) PROTHROMBIN TIME WITH [id number] 14:13:00 Test Item Value Reference Range Interpretation Comments PROTHROMBIN TIME 12.5 SECONDS 12.0-14.6 INR Usual R john = 2 (test code = PT) to 3 for pr evention of deep vein thrombosis (DVT ) INR (test code = INR) 0.9 [id number] 14:13:00 Test Item Value Reference Range Interpretation Comments PTT (test code = 37.8 SECONDS 24.4-36.3 H HEPARIN THE RAPEUTIC PTT) RANGE 57-92 SEC ONDS [id number] 14:00:00 Test Item Value Reference Range Interpretation [...] glucose = GLUCOSE) normal <100 MG/ DL- [employer] recommendation* * CALCIUM (test [...] GFR) mL/min/1.73m2 mL/min/1.73m2 is considered norm al. [id number] 14:00:00 Test Item Value Reference Range Interpretation Comments LIPASE (test code = LIPA) 40 U/L 23-300 [id number] 13:51:00 Test Item Value Reference Range Interpretation [...] code 8.8 K/UL 1.2-7.2 H = NEUT) [id number] 13:22:00 Test Item Value Reference Range Interpretation [...] (test code = UAMICRO) NO SPINE LUMBAR [id number] 13:32:[address] [id number] IMAGING REPORTPatient Name: Amaris HAYNES of Service: [id number]: 51 Sex: F Order #: [id number] [facility] 1965 [facility]-Ray Number: [id number] Record Number: [id number] Hospital Number: [id number] Physician: MICHELLE YEOrdering Physician: PRITI HONGDOUGLAS SPINE [...] 1:29 PMLegally authenticated by JENNIFER Daniels 2017-10-16 13:29:[id number] 12:33:00 Test Item Value Reference Range Interpretation [...] BACTERIA (test code = NEGATIVE NONE BACTERIA) 56393& [id number] 06:46:50CHEST 2 VIEWREASON FOR STUDY: [id number]-[id number]-[id number]:The heart and mediastinum are within normal limits. Minor linearscarring or atelectasis is noted involving the right infrahilar region.Lungs appear slightly hyperinflated. Bony structures appear intact. . No other significant findings. IMPRESSION: Minor linear scarring or atelectasis involving the right infrahilarregion. Chest is otherwise clear.
[2021-02-26] MEDS ORDERED: HYDROCODONE/APAP 10/325 TAB ONE (17:50)
--- NOTE | 2021-02-26 18:07 | RAD REPORT ---
EXAM DESCRIPTION: RAD - Lumbar Spine 3 Views - 02/26/2021 5:58 pm CLINICAL HISTORY: LOWER BACK PAIN COMPARISON: Lumbar Spine 3 Views dated 11/09/2019; Lumbar Spine 3 Views dated 09/28/2019 FINDINGS: No acute fracture of the lumbar spine is identified. Mild multilevel degenerate disc disea se with disc height loss and endplate spurring. Partially imaged thoracolumbar scoliosis. Surgical cl ips in right upper quadrant IMPRESSION: No acute fracture of the lumbar spine.
--- NOTE | 2021-02-26 18:22 | ER ---
Nurse's Notes [facility] Name: Bárbara Beebe Age: 55 yrs Sex: Female : 1965 Arrival Date: 02/26/2021 Time: 16:50 Bed Waiting Private MD: Diagnosis: Lumbago with sciatica, left side Presentation: 02/26 17:20 Chief complaint: Patient states: Back pain x 2 days. Pt stated she was pulling a box kg and fell backwards onto her bottom. Denies hitting head. 17:20 Method Of Arrival: Ambulatory kg 17:21 Coronavirus screen: Client denies travel out of the [place] in the last 14 days. At this kg time, unable to obtain information related to travel outside the [place] At this time, the client does not indicate any symptoms associated with coronavirus-19. Ebola Screen: Patient negative for fever greater than or equal to 101.5 degrees Fahrenheit, and additional compatible Ebola Virus Disease symptoms Patient denies exposure to infectious person. Patient denies travel to an Ebola-affected area in the 21 days before illness onset. No symptoms or risks identified at this time. Initial Sepsis Screen: Does the patient meet any 2 criteria? No. Patient's initial sepsis screen is negative. Does the patient have a suspected source of infection? No. Patient's initial sepsis screen is negative. Risk Assessment: Do you want to hurt yourself or someone else? Patient reports no desire to harm self or others. Onset of symptoms was February 24, 2021. 17:21 Acuity: ANGELA 4 kg Triage Assessment: 17:23 General: Appears in no apparent distress. Behavior is calm, cooperative, appropriate kg for age, quiet. Pain: Complains of pain in lumbar area, left low back and right low back Pain currently is 8 out of 10 on a pain scale. at worst was 10 out of 10 on a pain scale. level that patient reports is acceptable is 3 out of 10 on a pain scale. Historical: - Allergies: 17:23 Z-Pack- Possibly but unsure,; kg 17:23 UNKNOWN STEROID; kg - Home Meds: 17:23 Flexeril 10 mg Oral tab [Active]; Bleed pressure medications [Active]; kg - PMHx: 17:23 bleeding ulcers; COPD; Crohn's; Hypertension; psoriasis; kg - PSHx: 17:23 hysterectomy; Cholecystectomy; Appendectomy; Back Sx; kg - Immunization history:: Adult Immunizations up to date, Client reports having NOT received the Covid vaccine. - Social history:: Smoking status: Patient/guardian denies using tobacco, Stopped _ months ago 1. Screenin:58 Abuse screen: Denies threats or abuse. Denies injuries from another. Nutritional kg screening: No deficits noted. Tuberculosis screening: No symptoms or risk factors identified. Fall Risk None identified. Vital Signs: 17:21 BP 154 / 82; Pulse 79; Resp 20; Temp 98.2(O); Pulse Ox 97% on R/A; Weight 68.04 kg (R); kg Height 5 ft. 2 in. (157.48 cm) (R); Pain 8/10; 17:21 Body Mass Index 27.44 (68.04 kg, 157.48 cm) kg ED Course: 16:50 Patient arrived in ED. mr 17:23 Triage completed. kg 17:23 Salo Golden NP is PHCP. pm1 17:23 Arnulfo Jackson MD is Attending Physician. pm1 17:23 Arm band placed on. kg 17:57 Lumbar Spine (3 Views) XRAY In Process Unspecified. EDMS 18:23 Samson Reed MD is Referral Physician. pm1 18:58 Patient has correct armband on for positive identification. kg 18:58 No provider procedures requiring assistance completed. kg 18:58 Patient did not have IV access during this emergency room visit. kg Administered Medications: 17:29 Drug: Roach (HYDROcodone-acetaminophen) 10 mg-325 mg 1 tabs Route: PO; kg 18:00 Follow up: Response: No adverse reaction; Marked relief of symptoms kg Outcome: 18:22 Discharge ordered by . pm1 18:33 Patient left the ED. iw 18:58 Discharged to home ambulatory. kg 18:58 Condition: good 18:58 Discharge instructions given to patient, Instructed on discharge instructions, follow up and referral plans. Demonstrated understanding of instructions, follow-up care, medications, Prescriptions given X 1. Signatures: Dispatcher [employer] [facility] ShadeKandice mr Lien Massey RN RN iw Salo Golden NP TRACK LABORER pm1 Anahi Calderón RN RN kg Corrections: (The following items were deleted from the chart) 17:26 17:23 Home Meds: meloxicam 15 mg Oral tab 1 tab once daily; kg kg
--- NOTE | 2021-02-26 18:23 | EDPHYS ---
Physician Documentation [facility] Name: Bárbara Beebe Age: 55 yrs Sex: Female : 1965 Arrival Date: 02/26/2021 Time: 16:50 Bed Waiting Private MD: ED Physician Arnulfo Jackson HPI: 02/26 17:24 This 55 yrs old Female presents to ER via Unassigned with complaints of Fall pm1 Injury, Back Pain. 17:24 Details of fall: The patient fell from an upright position, while standing. Onset: The pm1 symptoms/episode began/occurred 2 day(s) ago. Associated injuries: The patient sustained injury to the low back, pain. Severity of symptoms: in the emergency department the symptoms are unchanged. Patient with a history of low back injury due to fall down stairs about 1 year ago requiring surgical intervention for possible compression fracture. The patient has not recently seen a physician. Patient was pulling a table. She lost her chancellor and fell backwards landing on her buttocks 2 days ago. Pain to lower back with radiation of pain down left leg. No numbness or tingling. No urinary or stool incontinence. Historical: - Allergies: 17:23 Z-Pack- Possibly but unsure,; kg 17:23 UNKNOWN STEROID; kg - Home Meds: 17:23 Flexeril 10 mg Oral tab [Active]; Bleed pressure medications [Active]; kg - PMHx: 17:23 bleeding ulcers; COPD; Crohn's; Hypertension; psoriasis; kg - PSHx: 17:23 hysterectomy; Cholecystectomy; Appendectomy; Back Sx; kg - Immunization history:: Adult Immunizations up to date, Client reports having NOT received the Covid vaccine. - Social history:: Smoking status: Patient/guardian denies using tobacco, Stopped _ months ago 1. ROS: 17:24 Constitutional: Negative for fever, chills, and weight loss, Neck: Negative for injury, pm1 pain, and swelling, Cardiovascular: Negative for chest pain, palpitations, and edema, Respiratory: Negative for shortness of breath, cough, wheezing, and pleuritic chest pain, Abdomen/GI: Negative for abdominal pain, nausea, vomiting, diarrhea, and constipation. 17:24 : Negative for injury, bleeding, discharge, and swelling, MS/Extremity: Negative for injury and deformity, Skin: Negative for injury, rash, and discoloration. 17:24 Back: Positive for of the lumbar area, pain. Radiation of pain to left leg. 17:24 Neuro: Negative for numbness, tingling, weakness. 17:24 All other systems are negative. Exam: 17:24 Constitutional: This is a well developed, well nourished patient who is awake, alert, pm1 and in no acute distress. Head/Face: Normocephalic, atraumatic. 17:24 Skin: Warm, dry with normal turgor. Normal color with no rashes, no lesions, and no evidence of cellulitis. MS/ Extremity: Pulses equal, no cyanosis. Neurovascular intact. Full, normal range of motion. 17:24 Cardiovascular: Rate: normal, Rhythm: regular, Pulses: no pulse deficits are appreciated. 17:24 Respiratory: Exam negative for acute changes, respiratory distress, shortness of breath. 17:24 Back: normal spinal alignment noted, vertebral tenderness, is appreciated at lumbar spine, muscle spasm, is not present. 17:24 Neuro: Exam negative for acute changes, Orientation: is normal, Mentation: is normal, Motor: is normal, moves all fours, strength is 5/5 in all extremities, Sensation: is normal, no obvious gross deficits. Vital Signs: 17:21 BP 154 / 82; Pulse 79; Resp 20; Temp 98.2(O); Pulse Ox 97% on R/A; Weight 68.04 kg (R); kg Height 5 ft. 2 in. (157.48 cm) (R); Pain 8/10; 17:21 Body Mass Index 27.44 (68.04 kg, 157.48 cm) kg MDM: 17:36 Patient medically screened. pm1 18:20 Data reviewed: vital signs. Data interpreted: Pulse oximetry: on room air is 97 %. pm1 Interpretation: normal. Counseling: I had a detailed discussion with the patient and/or guardian regarding: the historical points, exam findings, and any diagnostic results supporting the discharge/admit diagnosis, radiology results, the need for outpatient follow up, a family practitioner, a neurosurgeon, to return to the emergency department if symptoms worsen or persist or if there are any questions or concerns that arise at home, MRI of back if symptoms continue. 18:26 ED course: FIELD MARKETING ASSOCIATE Aware reviewed. Patient with history of ulcers. Will not prescribe pm1 NSAIDs. Will prescribe the patient Tylenol with codeine. Patient is currently taking Flexeril for her back pain. 02/26 17:24 Order name: Lumbar Spine (3 Views) XRAY; Complete Time: 18:16 pm1 Administered Medications: 17:29 Drug: [place] (HYDROcodone-acetaminophen) 10 mg-325 mg 1 tabs Route: PO; kg 18:00 Follow up: Response: No adverse reaction; Marked relief of symptoms kg Disposition: 18:44 Co-signature as Attending Physician, Arnulfo Jackson MD I agree with the assessment and rn plan of care. Attestation: The patient's history, exam findings, diagnostics, and a summary of any interventions or procedures was reviewed in detail with Salo Golden NP. Disposition Summary: 02/26/21 18:22 Discharge Ordered Location: Home pm1 Problem: new pm1 Symptoms: have improved pm1 Condition: Stable pm1 Diagnosis - Lumbago with sciatica, left side pm1 Followup: pm1 - With: Emergency Department - When: As needed - Reason: Worsening of condition Followup: pm1 - With: Private Physician - When: 2 - 3 days - Reason: Recheck today's complaints, Continuance of care, Re-evaluation by your physician Followup: pm1 - With: Samson Reed MD - When: 2 - 3 days - Reason: Recheck today's complaints, Continuance of care, Re-evaluation by your physician Discharge Instructions: - Discharge Summary Sheet pm1 - Acute Back Pain, Adult pm1 - Sciatica pm1 Forms: - Medication Reconciliation Form pm1 - Thank You Letter pm1 - Antibiotic Education pm1 - Prescription Opioid Use pm1 Prescriptions: - acetaminophen-codeine 300-15 mg Oral tablet - take 2 tablet by ORAL route every 6 hours As needed as needed; 20 tablet; pm1 Refills: 0, Product Selection Permitted Signatures: Dispatcher [employer] EDMS Arnulfo Jackson MD MD rn Marinas, Patrick, NP AIR DISPATCHER pm1 Anahi Calderón RN RN kg Corrections: (The following items were deleted from the chart) 17:26 17:23 Home Meds: meloxicam 15 mg Oral tab 1 tab once daily; kg kg 18:22 18:20 Counseling: I had a detailed discussion with the patient and/or guardian pm1 regarding: the historical points, exam findings, and any diagnostic results supporting the discharge/admit diagnosis, radiology results, the need for outpatient follow up, a family practitioner, a neurosurgeon, to return to the emergency department if symptoms worsen or persist or if there are any questions or concerns that arise at home, pm1 18:28 18:26 ED course: FIELD MARKETING ASSOCIATE Aware reviewed. Patient with history of ulcers. Will not prescribe pm1 NSAIDs. Will prescribe the patient Tylenol with codeine. pm1
[2021-02-26 18:48] VITALS: BP 154/82; TEMP 98.2; O2SAT 97
== END 2021-02-26 18:33 | disposition home or self-care (01) ==
LOC: ER 16:41
DX: M54.42 Lumbago with sciatica, left side (principal); I10 Essential (primary) hypertension; J44.9 Chronic obstructive pulmonary disease, unspecified; Z88.8 Allergy status to other drugs, medicaments and biological substances
CPT/HCPCS: 72100; 99283

== ENCOUNTER 2021-04-14 13:31 | Emergency (ER) | payer OTHER ==
[2021-04-14 14:22] LABS: Urine Blood Trace-intact (Negative); Urine Glucose Negative (Negative); Urine Protein Negative (Negative); Urine pH 6.5 (5.0-7.0)
[2021-04-14] MEDS ORDERED: ONDANSETRON 4 MG/2 ML VIAL ONE (15:10)
[2021-04-14] MEDS ORDERED: LIDOCAINE 4% PATCH ONE (15:10)
[2021-04-14] MEDS ORDERED: MORPHINE 4 MG/ML SYR ONE ×2 (15:10→17:33)
[2021-04-14 15:13] LABS: Basophils % 0.5 % (0-1.3); Hematocrit 35.3 % (36.0-45.0); RBC Red Blood Cell Count 3.89 M/uL (3.86-4.86)
--- NOTE | 2021-04-14 15:16 | RAD REPORT ---
EXAM DESCRIPTION: CT - Stone Protocol - 04/14/2021 3:01 pm CLINICAL HISTORY: Flank pain. Low back pain COMPARISON: Abdomen Pelvis W Contrast dated 01/24/2021 TECHNIQUE: Axial images were obtained without oral or IV contrast. Lack of contrast limits solid org an and vascular assessment. The [id number] spans the entirety of the system partially obscuring uppermost abdomen and lung bases. Coronal reformatted images were obtained and reviewed. All CT scans are performed using dose optimization technique as appropriate and may include automated exposure control or mA/KV adjustment according to patient size. FINDINGS: The lower lung carnes are clear. Cholecystectomy clips. Imaged portions of the liver and spleen show no suspicious findings on non-contrast imaging. The panc reas and adrenal glands are normal. No pathologic lymphadenopathy in the abdomen or pelvis. No urinary tract stones or obstructive uropathy. No bowel obstruction, free air, free fluid or abscess. Appendectomy. Prominent degenerative change at L2-3. IMPRESSION: No urinary tract stones or obstructive uropathy. Prominent degenerative spondylosis L2-3.
[2021-04-14 15:30] LABS: ALT/SGPT 103 U/L (12-78); AST/SGOT 30 U/L (15-37); Albumin 3.7 g/dL (3.4-5.0); Alkaline Phosphatase 132 U/L (45-117); BUN Blood Urea Nitrogen 10 mg/dL (7-18); Bicarbonate 28 mmol/L (21-32); Bilirubin Direct 0.1 mg/dL (0-0.2); Bilirubin Total 0.4 mg/dL (0.2-1.0); Glucose Level 95 mg/dL (74-106); Lipase 85 U/L (73-393); Potassium 4.1 mmol/L (3.5-5.1); Protein, Total 7.1 g/dL (6.4-8.2); Sodium Level 141 mmol/L (136-145)
--- NOTE | 2021-04-14 17:01 | ER ---
Nurse's Notes [facility] Name: Bárbara Beebe Age: 55 yrs Sex: Female : 1965 Arrival Date: 04/14/2021 Time: 13:33 Bed 10 Private MD: Diagnosis: Low back pain Presentation: 04/14 13:51 Chief complaint: Patient states: Low back pain for 2 weeks, worse than usual. Pain ll1 radiates down L leg. Dr. Buckner gave her tramadol time release. Coronavirus screen: Client denies travel out of the [place] in the last 14 days. At this time, the client does not indicate any symptoms associated with coronavirus-19. Ebola Screen: Patient denies travel to an Ebola-affected area in the 21 days before illness onset. Initial Sepsis Screen: Does the patient meet any 2 criteria? No. Patient's initial sepsis screen is negative. Does the patient have a suspected source of infection? No. Patient's initial sepsis screen is negative. Risk Assessment: Do you want to hurt yourself or someone else? Patient reports no desire to harm self or others. Onset of symptoms was March 31, 2021. 13:51 Method Of Arrival: Ambulatory ll1 13:51 Acuity: ANGELA 3 ll1 Historical: - Allergies: 13:53 Z-Pack- Possibly but unsure,; ll1 - PMHx: 13:53 bleeding ulcers; COPD; Crohn's; Hypertension; psoriasis; ll1 - PSHx: 13:53 Appendectomy; back sx; Cholecystectomy; hysterectomy; ll1 - Immunization history:: Client reports having NOT received the Covid vaccine. Flu vaccine is not up to date. - Social history:: Smoking status: Patient/guardian denies using tobacco, Stopped _ months ago 3. Screenin:13 Abuse screen: Denies threats or abuse. Nutritional screening: No deficits noted. vg1 Tuberculosis screening: No symptoms or risk factors identified. Fall Risk No fall in past 12 months (0 pts). No secondary diagnosis (0 pts). No IV (0 pts). Ambulatory Aid- None/Bed Rest/Nurse Assist (0 pts). Gait- Normal/Bed Rest/Wheelchair (0 pts) Mental Status- Oriented to own ability (0 pts). Total Gant Fall Scale indicates No Risk (0-24 pts). Assessment: 14:10 General: Appears in no apparent distress. uncomfortable, Behavior is calm, cooperative. vg1 Pain: Complains of pain in back Pain currently is 10 out of 10 on a pain scale. Pain began x2 weeks Noted to be grimacing, moaning. Neuro: Level of Consciousness is awake, alert, obeys commands, Oriented to person, place, time, situation, Reports numbness in right arm and left arm that happens every morning paresthesias. Cardiovascular: Patient's skin is warm and dry. Respiratory: Airway is patent Respiratory effort is even, unlabored. GI: Reports nausea, lose BM and states 'sometimes I have a BM without knowing until I can feel it in my pants'. : No signs and/or symptoms were reported regarding the genitourinary system. EENT: No signs and/or symptoms were reported regarding the EENT system. Derm: Skin is intact, is healthy with good turgor. Musculoskeletal: Circulation, motion, and sensation intact. 15:14 Reassessment: Patient appears in no apparent distress at this time. Patient and/or vg1 family updated on plan of care and expected duration. Pain level reassessed. Patient is alert, oriented x 3, equal unlabored respirations, skin warm/dry/pink. Stated pain subsided; stated back pain 6/10 Patient states feeling better. 16:21 Reassessment: Patient appears in no apparent distress at this time. Patient and/or vg1 family updated on plan of care and expected duration. Pain level reassessed. Patient is alert, oriented x 3, equal unlabored respirations, skin warm/dry/pink. Stated pain is still 6/10. Vital Signs: 13:51 BP 148 / 85; Pulse 89; Resp 17; Temp 98.6; Pulse Ox 99% ; Weight 68.04 kg; Height 5 ft. ll1 2 in. (157.48 cm); Pain 10/10; 14:13 BP 137 / 84; Pulse 82; Resp 16; Pulse Ox 100% ; vg1 15:15 BP 132 / 76; Pulse 70; Resp 16; Pulse Ox 99% ; vg1 16:21 BP 117 / 76; Pulse 70; Resp 16; Pulse Ox 99% ; vg1 17:27 BP 135 / 72; Pulse 68; Resp 16; Pulse Ox 100% ; vg1 13:51 Body Mass Index 27.44 (68.04 kg, 157.48 cm) ll1 ED Course: 13:33 Patient arrived in ED. ds1 13:41 Yaneth Peoples MD is Attending Physician. ma2 13:51 Arm band placed on. ll1 13:53 Triage completed. ll1 13:59 Angelique Azevedo, RN is Primary Nurse. vg1 14:05 Salo Golden NP is PHCP. pm1 14:05 Yaneth Peoples MD is Attending Physician. pm1 14:13 Patient has correct armband on for positive identification. Bed in low position. Call vg1 light in reach. Side rails up X 1. 14:48 Initial lab(s) drawn, by me, sent to lab. Inserted saline lock: 20 gauge in right vg1 antecubital area, using aseptic technique. Blood collected. 15:01 CT Stone Protocol In Process Unspecified. EDMS 17:00 Samson Reed MD is Referral Physician. pm1 17:28 No provider procedures requiring assistance completed. IV discontinued, intact, vg1 bleeding controlled, No redness/swelling at site. Pressure dressing applied. Administered Medications: 14:09 CANCELLED (Physician Discretion): NS 0.9% 1000 ml IV at 1 bolus Per protocol; 1000 mL vg1 bolus 14:50 Drug: Zofran (Ondansetron) 4 mg Route: IVP; Site: right antecubital; vg1 15:14 Follow up: Response: No adverse reaction vg1 14:52 Drug: morphine 4 mg Route: IVP; Site: right antecubital; vg1 15:14 Follow up: Response: Pain is decreased vg1 15:14 Drug: Lidoderm Patch 5 % (700 mg/patch) 1 patches Route: Topical; Site: affected area; vg1 17:27 Follow up: Response: No adverse reaction vg1 17:13 Drug: Decadron - Dexamethasone 10 mg Route: IVP; Site: right antecubital; vg1 17:27 Follow up: Response: Medication administered at discharge. vg1 17:15 Drug: morphine 4 mg Route: IVP; Site: right antecubital; vg1 17:27 Follow up: Response: Medication administered at discharge. vg1 Outcome: 17:00 Discharge ordered by . pm1 17:28 Discharged to home ambulatory. vg1 17:28 Condition: stable 17:28 Discharge instructions given to patient, Instructed on discharge instructions, follow up and referral plans. medication usage, Demonstrated understanding of instructions, follow-up care, medications, Prescriptions given X 2. 17:28 Patient left the ED. vg1 Signatures: Dispatcher [employer] EDIN Wilda Kent dsSha Salo Golden, CLINICAL NURSE OCCUPATIONAL MEDICINE CLINICAL NURSE OCCUPATIONAL MEDICINE pm1 Yaneth Peoples MD MD ma2 Angelique Azevedo RN RN vg1 Le Taylor RN RN ll1 Corrections: (The following items were deleted from the chart) 14:14 14:10 GI: Reports lose BM and states 'sometimes I have a BM without knowing until I can vg1 feel it in my pants' vg1 15:15 15:14 Reassessment: Patient appears in no apparent distress at this time. Patient vg1 and/or family updated on plan of care and expected duration. Pain level reassessed. Patient is alert, oriented x 3, equal unlabored respirations, skin warm/dry/pink. Patient states feeling better. vg1
--- NOTE | 2021-04-14 17:01 | EDPHYS ---
Physician Documentation [facility] Name: Bárbara Beebe Age: 55 yrs Sex: Female : 1965 Arrival Date: 04/14/2021 Time: 13:33 Bed 10 Private MD: ED Physician Yaneth Peoples HPI: 04/14 14:36 This 55 yrs old Female presents to ER via Ambulatory with complaints of Back pm1 Pain. 14:36 The patient presents with pain that is chronic. The symptoms are located in the low pm1 back. Onset: The symptoms/episode began/occurred Back pain worse the past 2 weeks. The pain radiates to the left leg. Associated signs and symptoms: Pertinent positives: Patient reports occasional stool incontinence for the past 3 days, Pertinent negatives: abdominal pain, chest pain, dysuria, fever, numbness, tingling. The problem was sustained from a chronic condition. Modifying factors: The patient symptoms are alleviated by nothing, the patient symptoms are aggravated by movement. Severity of symptoms: in the emergency department the symptoms are actually worse. The patient has been recently seen by a physician: the patient's primary care provider, Dr. Anderson, and prescribed tramadol for her pain. Reports no improvement with that medication. Historical: - Allergies: 13:53 Z-Pack- Possibly but unsure,; ll1 - PMHx: 13:53 bleeding ulcers; COPD; Crohn's; Hypertension; psoriasis; ll1 - PSHx: 13:53 Appendectomy; back sx; Cholecystectomy; hysterectomy; ll1 - Immunization history:: Client reports having NOT received the Covid vaccine. Flu vaccine is not up to date. - Social history:: Smoking status: Patient/guardian denies using tobacco, Stopped _ months ago 3. ROS: 14:36 Constitutional: Negative for fever, chills, and weight loss, Cardiovascular: Negative pm1 for chest pain, palpitations, and edema, Respiratory: Negative for shortness of breath, cough, wheezing, and pleuritic chest pain. 14:36 Abdomen/GI: Negative for abdominal pain, nausea, vomiting, diarrhea, and constipation, MS/Extremity: Negative for injury and deformity, Skin: Negative for injury, rash, and discoloration, Neuro: Negative for headache, weakness, numbness, tingling, and seizure. 14:36 : Negative for injury, bleeding, discharge, and swelling. 14:36 Back: Positive for of the left low back, Pain. 14:36 All other systems are negative. Exam: 14:36 Constitutional: This is a well developed, well nourished patient who is awake, alert, pm1 and in no acute distress. Head/Face: Normocephalic, atraumatic. 14:36 Skin: Warm, dry with normal turgor. Normal color with no rashes, no lesions, and no evidence of cellulitis. MS/ Extremity: Pulses equal, no cyanosis. Neurovascular intact. Full, normal range of motion. 14:36 Eyes: Exam is negative for acute changes, Extraocular movements: intact throughout, Conjunctiva: no acute changes, no injection. 14:36 ENT: Exam is negative for acute changes, Mouth: Lips: normal, moist, Oral mucosa: normal, pink and intact, moist. 14:36 Cardiovascular: Rate: normal, Rhythm: regular, Pulses: no pulse deficits are appreciated, Edema: is not appreciated. 14:36 Respiratory: Exam negative for acute changes, respiratory distress, shortness of breath. 14:36 Abdomen/GI: Inspection: abdomen appears normal, Palpation: abdomen is soft and non-tender, in all quadrants. 14:36 Back: vertebral tenderness, is not appreciated, muscle spasm, is appreciated in the right low back, Straight leg raises: right lower extremity illicits pain, at 45 degrees, left lower extremity illicits pain, at 15 degrees. 14:36 Neuro: Exam negative for acute changes, Orientation: is normal, Mentation: is normal, Motor: is normal, moves all fours. 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 Vital Signs: 13:51 BP 148 / 85; Pulse 89; Resp 17; Temp 98.6; Pulse Ox 99% ; Weight 68.04 kg; Height 5 ft. ll1 2 in. (157.48 cm); Pain 10/10; 14:13 BP 137 / 84; Pulse 82; Resp 16; Pulse Ox 100% ; vg1 15:15 BP 132 / 76; Pulse 70; Resp 16; Pulse Ox 99% ; vg1 16:21 BP 117 / 76; Pulse 70; Resp 16; Pulse Ox 99% ; vg1 17:27 BP 135 / 72; Pulse 68; Resp 16; Pulse Ox 100% ; vg1 13:51 Body Mass Index 27.44 (68.04 kg, 157.48 cm) ll1 MDM: 13:41 Patient medically screened. ma2 16:59 Data reviewed: vital signs. Data interpreted: Pulse oximetry: on room air is 99 %. pm1 Interpretation: normal. Counseling: I had a detailed discussion with the patient and/or guardian regarding: the historical points, exam findings, and any diagnostic results supporting the discharge/admit diagnosis, lab results, radiology results, the need for outpatient follow up, to return to the emergency department if symptoms worsen or persist or if there are any questions or concerns that arise at home. 17:25 ED course: CALL TAKER aware reviewed and patient with recent prescription for tramadol 60 pm1 pills. Prescribed on 04/09/2021. Therefore patient will need to follow-up with PCP for different pain medications. 04/14 14:21 Order name: Urine Dipstick-Ancillary; Complete Time: 14:35 EDMS 04/14 14:38 Order name: Basic Metabolic Panel; Complete Time: 15:33 pm1 04/14 13:41 Order name: EKG; Complete Time: 13:43 ma2 04/14 14:38 Order name: CBC with Diff; Complete Time: 15:19 pm1 04/14 14:38 Order name: Hepatic Function; Complete Time: 15:33 pm1 04/14 14:38 Order name: Lipase; Complete Time: 15:33 pm1 04/14 14:38 Order name: CT Stone Protocol; Complete Time: 15:19 pm1 04/14 14:36 Order name: IV Saline Lock; Complete Time: 14:54 pm1 04/14 14:38 Order name: Labs collected and sent; Complete Time: 14:54 pm1 Administered Medications: 14:09 CANCELLED (Physician Discretion): NS 0.9% 1000 ml IV at 1 bolus Per protocol; 1000 mL vg1 bolus 14:50 Drug: Zofran (Ondansetron) 4 mg Route: IVP; Site: right antecubital; vg1 15:14 Follow up: Response: No adverse reaction vg1 14:52 Drug: morphine 4 mg Route: IVP; Site: right antecubital; vg1 15:14 Follow up: Response: Pain is decreased vg1 15:14 Drug: Lidoderm Patch 5 % (700 mg/patch) 1 patches Route: Topical; Site: affected area; vg1 17:27 Follow up: Response: No adverse reaction vg1 17:13 Drug: Decadron - Dexamethasone 10 mg Route: IVP; Site: right antecubital; vg1 17:27 Follow up: Response: Medication administered at discharge. vg1 17:15 Drug: morphine 4 mg Route: IVP; Site: right antecubital; vg1 17:27 Follow up: Response: Medication administered at discharge. vg1 Disposition Summary: 04/14/21 17:00 Discharge Ordered Location: Home pm1 Problem: new pm1 Symptoms: have improved pm1 Condition: Stable pm1 Diagnosis - Low back pain pm1 Followup: pm1 - With: Emergency Department - When: As needed - Reason: Worsening of condition Followup: pm1 - With: Private Physician - When: 2 - 3 days - Reason: Recheck today's complaints, Continuance of care, Re-evaluation by your physician Followup: pm1 - With: Samson Reed MD - When: 2 - 3 days - Reason: Recheck today's complaints, Continuance of care, Re-evaluation by your physician Discharge Instructions: - Discharge Summary Sheet pm1 - Chronic Back Pain pm1 Forms: - Medication Reconciliation Form pm1 - Thank You Letter pm1 - Antibiotic Education pm1 - Prescription Opioid Use pm1 Prescriptions: - Prednisone 20 mg Oral Tablet - take 3 tablets by ORAL route once daily for 5 days; 15 tablet; Refills: 0, pm1 Product Selection Permitted - Lidoderm 5 % Topical adhesive patch,medicated - apply 1 patch by TRANSDERMAL route once daily As needed 12 hours on and 12 pm1 hours off in a 24 hour period; 10 patch; Refills: 0, Product Selection Permitted Signatures: Dispatcher [employer] EDMS Salo Golden NP REROLLING MACHINE OPERATOR pm1 Yaneth Peoples MD MD ma2 Angelique Azevedo, RN RN vg1 Le Taylor RN RN ll1 Corrections: (The following items were deleted from the chart) 13:44 13:42 CT-STROKE BRAIN W/O CONTRAST+CT.RAD.BRZ ordered. EDMS EDMS 13:46 13:42 AMYLASE, SERUM+C.LAB.BRZ ordered. EDMS EDMS 13:46 13:42 BASIC METABOLIC PANEL+C.LAB.BRZ ordered. EDMS EDMS 13:46 13:42 CBC+H.LAB.BRZ ordered. EDMS EDMS 13:46 13:42 CREATINE PHOSPHOKINASE+C.LAB.BRZ ordered. EDMS EDMS 13:46 13:42 CKMB+C.LAB.BRZ ordered. EDMS EDMS 13:46 13:42 HEPATIC FUNCTION+C.LAB.BRZ ordered. EDMS EDMS 13:46 13:42 LIPASE+C.LAB.BRZ ordered. EDMS EDMS 13:46 13:42 MAGNESIUM+C.LAB.BRZ ordered. EDMS EDMS 13:46 13:42 PROTIME (+INR)+COAG.LAB.BRZ ordered. EDMS EDMS 13:46 13:42 PTT, ACTIVATED+COAG.LAB.BRZ ordered. EDMS EDMS 13:46 13:42 TROPONIN (EMERG DEPT USE ONLY)+C.LAB.BRZ ordered. EDMS EDMS 13:46 13:42 URINE DRUG SCREEN+CHEM UR.LAB.BRZ ordered. EDMS EDMS 14:01 13:42 Chest Single View+RAD.RAD.BRZ ordered. EDMS EDMS 14:08 13:41 Stroke Swallow Screen ordered. [place] [id number] 14:09 13:41 Accucheck ordered. [place] [id number] 14:09 13:41 Cardiac monitoring ordered. [place] [id number] 14:09 13:41 EKG - Nurse/Tech ordered. [place] [id number] 14:09 13:41 IV Saline Lock ordered. [place] [id number] 14:09 13:41 Labs collected and sent ordered. [place] [id number] 14:09 13:41 NPO ordered. [place] [id number] 14:09 13:41 Oxygen Per Protocol ordered. [place] [id number] 14:09 13:41 O2 Sat Monitoring ordered. [place] [id number] 14:09 13:42 NS 0.9% 1000 ml IV at 1 bolus Per protocol; 1000 mL bolus ordered. [place] [id number]
[2021-04-14] MEDS ORDERED: dexAMETHasone 10 MG/ML VIAL ONE (17:33)
[2021-04-14 17:48] VITALS: TEMP 98.6
[2021-04-14 17:53] VITALS: BP 135/72; O2SAT 100
== END 2021-04-14 17:28 | disposition home or self-care (01) ==
LOC: ER 13:31
DX: M54.5 Low back pain (principal)
CPT/HCPCS: 85025; 80048; 36415; 80076; 81003; 83690; 76377; 74176; 96375; 96374; 99284; J1100; J2405

== ENCOUNTER 2021-05-20 09:52 | Emergency (ER) | payer OTHER ==
--- NOTE | 2021-05-20 11:15 | RAD REPORT ---
EXAM DESCRIPTION: Shoulder Right 2 View - 05/20/2021 10:27 am CLINICAL HISTORY: PAIN, work injury COMPARISON: Shoulder Right 2 View dated 04/29/2019 TECHNIQUE: Internal and external rotation views of the right shoulder were obtained. FINDINGS: Acromial humeral joint space is normal. No soft tissue calcifications. AC joint is normal in appearance. No acute or suspicious findings. No identifiable changes from the comparison study. IMPRESSION: Negative two-view right shoulder examination.
[2021-05-20] MEDS ORDERED: CYCLOBENZAPRINE 10 MG TAB ONE (11:16)
[2021-05-20] MEDS ORDERED: KETOROLAC 30 MG/ML INJ ONE (11:16)
[2021-05-20] MEDS ORDERED: LIDOCAINE 4% PATCH ONE (11:17)
--- NOTE | 2021-05-20 11:59 | EDPHYS ---
Physician Documentation [facility] Name: Bárbara Beebe Age: 55 yrs Sex: Female : 1965 Arrival Date: 05/20/2021 Time: 09:54 Bed 2 Private MD: Heron Anderson ED Physician Toñito Baldwin HPI: 05/20 10:08 This 55 yrs old Female presents to ER via Unassigned with complaints of pm1 Shoulder Pain. 10:08 The patient or guardian complains of pain, that is acute. right shoulder and right pm1 trapezius. 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 Negative for trauma. Onset: The symptoms/episode began/occurred 3 day(s) ago. Modifying factors: the symptoms are alleviated by remaining still, The symptoms are aggravated by movement. Associated signs and symptoms: Pertinent negatives: abdominal pain, chest pain, Numbness in right arm tingling. Severity of symptoms: in the emergency department the symptoms are actually worse. Treatment prior to arrival includes: no previous treatment. The patient has not experienced similar symptoms in the past. The patient has not recently seen a physician. Patient reports onset of right trapezius and right shoulder pain onset . 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 Historical: - Allergies: 10:10 UNKNOWN STEROID; bp 10:10 Z-Pack- Possibly but unsure,; bp - Home Meds: 10:10 irbesartan oral [Active]; bp - PMHx: 10:10 bleeding ulcers; COPD; Crohn's; Hypertension; psoriasis; bp - PSHx: 10:10 Appendectomy; back sx; Cholecystectomy; hysterectomy; bp - Immunization history:: Adult Immunizations up to date. - Social history:: Smoking status: Patient denies any tobacco usage or history of. ROS: 10:08 Constitutional: Negative for fever, chills, and weight loss. pm1 10:08 Cardiovascular: Negative for chest pain, palpitations, and edema, Respiratory: Negative for shortness of breath, cough, wheezing, and pleuritic chest pain, Abdomen/GI: Negative for abdominal pain, nausea, vomiting, diarrhea, and constipation. 10:08 Skin: Negative for injury, rash, and discoloration, Neuro: Negative for headache, weakness, numbness, tingling, and seizure. 10:08 Back: Positive for of the right trapezius, Pain. 10:08 MS/extremity: Positive for pain, of the right shoulder. 10:08 All other systems are negative. Exam: 10:08 Constitutional: This is a well developed, well nourished patient who is awake, alert, pm1 and in no acute distress. Head/Face: Normocephalic, atraumatic. 10:08 Skin: Warm, dry with normal turgor. Normal color with no rashes, no lesions, and no evidence of cellulitis. 10:08 Neck: C-spine: vertebral tenderness, is not appreciated. 10:08 Chest/axilla: Exam negative for acute changes. 10:08 Cardiovascular: Exam negative for acute changes, Rate: normal, Rhythm: regular, Pulses: no pulse deficits are appreciated, Pulses are 2+ in right radial artery. 10:08 Respiratory: Exam negative for acute changes, the patient does not display signs of respiratory distress, Respirations: normal, Breath sounds: are clear throughout. 10:08 Back: muscle spasm, is appreciated in the right trapezius and right shoulder. 10:08 Musculoskeletal/extremity: Extremities: grossly normal except: noted in the right shoulder, muscle spasm: tenderness. 10:08 Neuro: Exam negative for acute changes, Orientation: is normal, Motor: is normal, moves all fours. Vital Signs: 10:08 BP 165 / 68; Pulse 98; Resp 17; Temp 97.9; Pulse Ox 99% ; Weight 68.04 kg; Height 5 ft. bp 2 in. (157.48 cm); 11:26 BP 128 / 83; Pulse 75; Resp 16; Pulse Ox 98% ; aa5 10:08 Body Mass Index 27.44 (68.04 kg, 157.48 cm) bp MDM: 10:03 Patient medically screened. pm1 10:13 Data reviewed: vital signs. Data interpreted: Pulse oximetry: on room air is 99 %. pm1 Interpretation: normal. 11:57 Counseling: I had a detailed discussion with the patient and/or guardian regarding: the pm1 historical points, exam findings, and any diagnostic results supporting the discharge/admit diagnosis, radiology results, the need for outpatient follow up, to return to the emergency department if symptoms worsen or persist or if there are any questions or concerns that arise at home. 05/20 10:08 Order name: Shoulder Right (2 View) XRAY; Complete Time: 11:56 pm1 05/20 10:34 Order name: Sling; Complete Time: 10:54 pm1 Administered Medications: 10:26 Drug: Ketorolac 60 mg Route: IM; Site: right gluteus; aa5 12:05 Follow up: Response: No adverse reaction aa5 10:27 Drug: Flexeril (cyclobenzaprine) 10 mg Route: PO; aa5 12:05 Follow up: Response: No adverse reaction aa5 10:27 Drug: Lidoderm Patch 5 % (700 mg/patch) 1 patches {Note: to right shoulder.} Route: aa5 Topical; Site: affected area; 12:05 Follow up: Response: No adverse reaction aa5 Disposition: 14:00 Co-signature as Attending Physician, Toñito Baldwin MD I agree with the assessment and kdr plan of care. Disposition Summary: 05/20/21 11:58 Discharge Ordered Location: Home pm1 Problem: new pm1 Symptoms: have improved pm1 Condition: Stable pm1 Diagnosis - Strain of other muscles, fascia and tendons at shoulder and upper arm level, right pm1 arm Followup: pm1 - With: Emergency Department - When: As needed - Reason: Worsening of condition Followup: pm1 - With: Private Physician - When: 2 - 3 days - Reason: Recheck today's complaints, Continuance of care, Re-evaluation by your physician Discharge Instructions: - Discharge Summary Sheet pm1 - Shoulder Pain pm1 - How to Use a Sling pm1 Forms: - Medication Reconciliation Form pm1 - Thank You Letter pm1 - Antibiotic Education pm1 - Prescription Opioid Use pm1 Prescriptions: - Cyclobenzaprine 10 mg Oral Tablet - take 1 tablet by ORAL route every 8 hours As needed; 30 tablet; Refills: 0, pm1 Product Selection Permitted - Diclofenac Sodium 75 mg Oral tablet,delayed release (DR/EC) - take 1 tablet by ORAL route 2 times per day As needed; 30 tablet; Refills: 0, pm1 Product Selection Permitted Signatures: Dispatcher [employer] EDToñito Jean MD MD kdr Calderon, Audri, RN RN aa5 Salo Golden NP FINAL INSPECTOR pm1 Wilfredo Whyte, RN RN bp Corrections: (The following items were deleted from the chart) 10:11 10:10 Home Meds: Bleed pressure medications; bp bp
--- NOTE | 2021-05-20 11:59 | ER ---
Nurse's Notes [facility] Name: Bárbara Beebe Age: 55 yrs Sex: Female : 1965 Arrival Date: 05/20/2021 Time: 09:54 Bed 2 Private MD: Heron Anderson Diagnosis: Strain of other muscles, fascia and tendons at shoulder and upper arm level, right arm Presentation: 05/20 10:08 Chief complaint: Patient states: R SHOULDER PAIN, RADICULOPATHY PATTERN. Coronavirus bp screen: At this time, the client does not indicate any symptoms associated with coronavirus-19. Ebola Screen: No symptoms or risks identified at this time. Initial Sepsis Screen: Does the patient meet any 2 criteria? No. Patient's initial sepsis screen is negative. Does the patient have a suspected source of infection? No. Patient's initial sepsis screen is negative. Risk Assessment: Do you want to hurt yourself or someone else? Patient reports no desire to harm self or others. Onset of symptoms was May 17, 2021. 10:08 Method Of Arrival: Ambulatory bp 10:08 Acuity: ANGELA 3 bp Triage Assessment: 10:10 General: Appears distressed, uncomfortable, Behavior is cooperative, appropriate for bp age, anxious. Pain: Complains of pain in right shoulder. EENT: No deficits noted. Neuro: Level of Consciousness is awake, alert, obeys commands, Oriented to Appropriate for age. Cardiovascular: Rhythm is sinus rhythm. Respiratory: No deficits noted. GI: No signs and/or symptoms were reported involving the gastrointestinal system. : No signs and/or symptoms were reported regarding the genitourinary system. Derm: No deficits noted. Musculoskeletal: Range of motion: limited in right shoulder. Historical: - Allergies: 10:10 UNKNOWN STEROID; bp 10:10 Z-Pack- Possibly but unsure,; bp - Home Meds: 10:10 irbesartan oral [Active]; bp - PMHx: 10:10 bleeding ulcers; COPD; Crohn's; Hypertension; psoriasis; bp - PSHx: 10:10 Appendectomy; back sx; Cholecystectomy; hysterectomy; bp - Immunization history:: Adult Immunizations up to date. - Social history:: Smoking status: Patient denies any tobacco usage or history of. Assessment: 10:10 General: SEE TRIAGE NOTE. bp 10:27 Reassessment: x-ray completed . aa5 11:27 Reassessment: No changes from previously documented assessment. Patient and/or family bp updated on plan of care and expected duration. Pain level reassessed. SLING IN PLACE. 12:07 Reassessment: Patient is alert, oriented x 3, equal unlabored respirations, skin aa5 warm/dry/pink. Vital Signs: 10:08 BP 165 / 68; Pulse 98; Resp 17; Temp 97.9; Pulse Ox 99% ; Weight 68.04 kg; Height 5 ft. bp 2 in. (157.48 cm); 11:26 BP 128 / 83; Pulse 75; Resp 16; Pulse Ox 98% ; aa5 10:08 Body Mass Index 27.44 (68.04 kg, 157.48 cm) bp ED Course: 09:54 Patient arrived in ED. as 09:54 Herno Anderson MD is Private Physician. as 10:03 Salo Golden NP is PHCP. pm1 10:03 Toñito Baldwin MD is Attending Physician. pm1 10:08 Wilfredo Whyte, FRANKI is Primary Nurse. bp 10:09 Triage completed. bp 10:10 Arm band placed on. bp 10:27 Shoulder Right (2 View) XRAY In Process Unspecified. EDMS 12:07 No provider procedures requiring assistance completed. Patient did not have IV access aa5 during this emergency room visit. Administered Medications: 10:26 Drug: Ketorolac 60 mg Route: IM; Site: right gluteus; aa5 12:05 Follow up: Response: No adverse reaction aa5 10:27 Drug: Flexeril (cyclobenzaprine) 10 mg Route: PO; aa5 12:05 Follow up: Response: No adverse reaction aa5 10:27 Drug: Lidoderm Patch 5 % (700 mg/patch) 1 patches {Note: to right shoulder.} Route: aa5 Topical; Site: affected area; 12:05 Follow up: Response: No adverse reaction aa5 Outcome: 11:58 Discharge ordered by . pm1 12:07 Discharged to home ambulatory. aa5 12:07 Condition: improved 12:07 Discharge instructions given to patient, Instructed on discharge instructions, follow up and referral plans. medication usage, Demonstrated understanding of instructions, follow-up care, medications, Prescriptions given X 2. 12:07 Patient left the ED. aa5 Signatures: Dispatcher [employer] EDMS Gudelia Tafoya as Xenia Chris, RN RN aa5 Salo Golden, MARISOL CASE HARDENER pm1 Wilfredo Whyte RN RN bp Corrections: (The following items were deleted from the chart) 10: 10:10 Home Meds: Bleed pressure medications; bp bp 10: 10:08 Xenia Chris, RN is Primary Nurse. aa5 aa5 10: 10:08 Primary Nurse role handed off by Xenia Chris, RN bp aa5 12:08 11:26 BP 128 / 3; Pulse 75bpm; Resp 16bpm; Pulse Ox 98%; bp aa5
[2021-05-20 12:11] VITALS: TEMP 97.9
[2021-05-20 12:13] VITALS: BP 128/83; O2SAT 98
== END 2021-05-20 12:07 | disposition home or self-care (01) ==
LOC: ER 09:52
DX: S46.811A Strain of other muscles, fascia and tendons at shoulder and upper arm level, right arm, initial encounter (principal); I10 Essential (primary) hypertension; Z88.8 Allergy status to other drugs, medicaments and biological substances
CPT/HCPCS: 96372; 99284

== ENCOUNTER 2021-08-17 18:36 | Emergency (ER) | payer OTHER ==
--- OUTSIDE RECORDS SUMMARY | 2021-08-17 18:44 | XMS REPORT | Continuity of Care Document ---
:1965 Author Organization [facility] t Address [address] [place] [address] Care Team Providers Name Role Phone [facility] Primary Care Physician Unavailable Titus Attending Clinician Unavailable Yves Gaston DO Attending Clinician INGRID ANDRADE Attending Clinician Unavailable Ingrid Andrade MD Attending Clinician NASREEN Attending Clinician Unavailable Nasreen WEBB Attending Clinician Doctor Unassigned, Name Attending Clinician Unavailable Clinic, Resident Attending Clinician Unavailable Frank Attending Clinician Geo CORONADO Attending Clinician Tanner Bansal MD Attending Clinician Alex WEBB Attending Clinician Avis WEBB Attending Clinician Tong Hart Attending Clinician Tong GUTIERREZ Attending Clinician Unavailable Shar Anderson Admitting Clinician Unavailable Alex WEBB Admitting Clinician Payers Payer Name Policy Type Policy Number Effective Date Expiration Date S ource Problems Condition Condition Condition Status Onset Resolution Last Treating Co mments Source Name Details Category Date Date Treatment Clinician Date Lumbar Lumbar Disease Active Univers stenosis stenosis 01-23 ity of with with 00:00: [place] neurogenic neurogenic 00 Me dical claudicati claudicati Br anch on on Perforated Perforated Disease Active U nivers ulcer ulcer 03-29 ity of 00:00: [place] 00 Medical Branch Melena Melena Disease Active Overview: Univer s 03-29 Added ity of 00:00: automatic [place] 00 ally from Medical request Branch for surgery [id number] Allergies, Adverse Reactions, Alerts Allergy Allergy Status Severity Reaction(s) Onset Inactive Treating Comm ents Source Name Type Date Date Clinician No Known DA Active U 2020-07 [facility] Allergie 0[facility]22 [place] 00:[facility]: d 00 [facility] sucralfa FA Active U Rash 2020-07 [facility] te 0-22 [place] 00:00: d 00 [facility] No Known DA Active U 2020-07 [facility] Allergie 0-22 [place] 00:[facility]: d 00 [facility] sucralfa FA Active U 2020-07 [facility] te 0[facility] [place] [facility] NO KNOWN Drug Active Univers ALLERGIE Class ity of S [facility] Social History Social Habit Start Date Stop Date Quantity Comments Source History of Cigarette Smoker Universi ty of tobacco use [facility] Exposure to Not sure [facility] SARS-CoV-2 [facility] (event) Branch Tobacco use and 2020-03-02 2020-03-02 Never used Universit y of exposure 00:00:00 00:00:00 [facility] Alcohol intake 2020-03-02 2020-03-02 Current University of 00:00:00 00:00:00 non-drinker of [facility] alcohol (finding) Branch Tobacco Comment 2020-01-21 2020-01-21 1/2 pack a day Unive rsity of 00:00:00 00:00:00 [facility] Sex [birth year] Universit y of 00:00:00 00:00:00 [facility] Smoking Status Start Date Stop Date Source Current every day smoker 2020-03-02 00:00:00 Uni versity of [facility] Medications Ordered Filled Start Stop Current Ordering Indication Dosage Frequency Signature Comments Components Source Medication Medication Date Date Medication? Clinician (SIG) Name Name gabapentin 2020- No [id number] 600mg Take 1 Univers 600 mg 02-21 tablet by ity of tablet 00:00: 05:59 mouth 3 [place] 00 :00 (three) Medical times Branch daily for 90 days. cyclobenzap 2020-0 2020- No [id number] 10mg Take 1 Univers rine 10 mg 8-04 11-03 tablet by ity of tablet 00:00: 05:59 mouth 3 [place] 00 :00 (three) Medical times Branch daily for 90 days. gabapentin 2020-0 2020- No [id number] 600mg Take 1 Univers 600 mg 8-04 11-03 tablet by ity of tablet 00:00: 05:59 mouth 3 [place] 00 :00 (three) Medical times Branch daily for 90 days. cyclobenzap 2020-0 2020- No [id number] 10mg Take 1 Univers rine 10 mg 8-04 11-03 tablet by ity of tablet 00:00: 05:59 mouth 3 [place] 00 :00 (three) Medical times Branch daily for 90 days. gabapentin 2020-0 2020- No [id number] 600mg Take 1 Univers 600 mg 8-04 11-03 tablet by ity of tablet 00:00: 05:59 mouth 3 [place] 00 :00 (three) Medical times Branch daily for 90 days. cyclobenzap 2020-0 2020- No [id number] 10mg Take 1 Univers rine 10 mg 8-04 11-03 tablet by ity of tablet 00:00: 05:59 mouth 3 [place] 00 :00 (three) Medical times Branch daily for 90 days. gabapentin 2020-0 2020- No [id number] 600mg Take 1 Univers 600 mg 8-04 11-03 tablet by ity of tablet 00:00: 05:59 mouth 3 [place] 00 :00 (three) Medical times Branch daily for 90 days. cyclobenzap 2020-0 2020- No [id number] 10mg Take 1 Univers rine 10 mg 8-04 11-03 tablet by ity of tablet 00:00: 05:59 mouth 3 [place] 00 :00 (three) Medical times Branch daily for 90 days. gabapentin 2020-0 2020- No [id number] 600mg Take 1 Univers 600 mg 8-04 11-03 tablet by ity of tablet 00:00: 05:59 mouth 3 [place] 00 :00 (three) Medical times Branch daily for 90 days. cyclobenzap 2020-0 2020- No [id number] 10mg Take 1 Univers rine 10 mg 8-04 11-03 tablet by ity of tablet 00:00: 05:59 mouth 3 [place] 00 :00 (three) Medical times Branch daily for 90 days. gabapentin 2020-0 2020- No [id number] 600mg Take 1 Univers 600 mg 8-04 11-03 tablet by ity of tablet 00:00: 05:59 mouth 3 [place] 00 :00 (three) Medical times Branch daily for 90 days. cyclobenzap 2020-0 2020- No [id number] 10mg Take 1 Univers rine 10 mg 8-04 11-03 tablet by ity of tablet 00:00: 05:59 mouth 3 [place] 00 :00 (three) Medical times Branch daily for 90 days. gabapentin 2020-0 2020- No [id number] 600mg Take 1 Univers 600 mg 8-04 11-03 tablet by ity of tablet 00:00: 05:59 mouth 3 [place] 00 :00 (three) Medical times Branch daily for 90 days. cyclobenzap 2020-0 2020- No [id number] 10mg Take 1 Univers rine 10 mg 8-04 11-03 tablet by ity of tablet 00:00: 05:59 mouth 3 [place] 00 :00 (three) Medical times Branch daily for 90 days. gabapentin 2020-0 2020- No [id number] 600mg Take 1 Univers 600 mg 8-04 11-03 tablet by ity of tablet 00:00: 05:59 mouth 3 [place] 00 :00 (three) Medical times Branch daily for 90 days. cyclobenzap 2020-0 2020- No [id number] 10mg Take 1 Univers rine 10 mg 8-04 11-03 tablet by ity of tablet 00:00: 05:59 mouth 3 [place] 00 :00 (three) Medical times Branch daily for 90 days. gabapentin 2020-0 2020- No [id number] 600mg Take 1 Univers 600 mg 8-04 11-03 tablet by ity of tablet 00:00: 05:59 mouth 3 [place] 00 :00 (three) Medical times Branch daily for 90 days. cyclobenzap 2020-0 2020- No [id number] 10mg Take 1 Univers rine 10 mg 8-04 11-03 tablet by ity of tablet 00:00: 05:59 mouth 3 [place] 00 :00 (three) Medical times Branch daily for 90 days. gabapentin 2020-0 2020- No [id number] 600mg Take 1 Univers 600 mg 8-04 11-03 tablet by ity of tablet 00:00: 05:59 mouth 3 [place] 00 :00 (three) Medical times Branch daily for 90 days. cyclobenzap 2020-0 2020- No [id number] 10mg Take 1 Univers rine 10 mg 8- 11-03 tablet by ity of tablet 00:00: 05:59 mouth 3 [place] 00 :00 (three) Medical times Branch daily for 90 days. gabapentin 2020-0 2020- No [id number] 600mg Take 1 Univers 600 mg 8- 11-03 tablet by ity of tablet 00:00: 05:59 mouth 3 [place] 00 :00 (three) Medical times Branch daily for 90 days. cyclobenzap 2020-0 2020- No [id number] 10mg Take 1 Univers rine 10 mg 8-10 29-03 tablet by ity of tablet 00:00: 05:59 mouth 3 [place] 00 :00 (three) Medical times Branch daily for 90 days. methylPREDN 2020-0 Yes [id number] Take by Univers ISolone 7-30 mouth ity of (MEDROL, 00:00: SEE-INSTRU [place] as NGA,) 4 mg 00 CTIONS. Medica l tablets follow Branch package directions methylPREDN 2020-0 Yes [id number] Take by Univers ISolone 7-30 mouth ity of (MEDROL, 00:00: SEE-INSTRU [place] NGA,) 4 mg 00 CTIONS. Medica l tablets follow Branch package directions methylPREDN 2020-0 Yes [id number] Take by Univers ISolone 7-30 mouth ity of (MEDROL, 00:00: SEE-INSTRU [place] NGA,) 4 mg 00 CTIONS. Medica l tablets follow Branch package directions methylPREDN 2020-0 Yes [id number] Take by Univers ISolone 7-30 mouth ity of (MEDROL, 00:00: SEE-INSTRU [place] NGA,) 4 mg 00 CTIONS. Medica l tablets follow Branch package directions methylPREDN 2020-0 Yes [id number] Take by Univers ISolone 7-30 mouth ity of (MEDROL, 00:00: SEE-INSTRU [place] NGA,) 4 mg 00 CTIONS. Medica l tablets follow Branch package directions methylPREDN 2020-0 Yes [id number] Take by Univers ISolone 7-30 mouth ity of (MEDROL, 00:00: SEE-INSTRU [place] NGA,) 4 mg 00 CTIONS. Medica l tablets follow Branch package directions methylPREDN 2020-0 Yes [id number] Take by Univers ISolone 7-30 mouth ity of (MEDROL, 00:00: SEE-INSTRU [place] NGA,) 4 mg 00 CTIONS. Medica l tablets follow Branch package directions methylPREDN 2020-0 Yes [id number] Take by Univers ISolone 7-30 mouth ity of (MEDROL, 00:00: SEE-INSTRU [place] NGA,) 4 mg 00 CTIONS. Medica l tablets follow Branch package directions methylPREDN 2020-0 Yes [id number] Take by Univers ISolone 7-30 mouth ity of (MEDROL, 00:00: SEE-INSTRU [place] NGA,) 4 mg 00 CTIONS. Medica l tablets follow Branch package directions methylPREDN 2020-0 Yes [id number] Take by Univers ISolone 7-30 mouth ity of (MEDROL, 00:00: SEE-INSTRU [place] NGA,) 4 mg 00 CTIONS. Medica l tablets follow Branch package directions methylPREDN 2020-0 Yes [id number] Take by Univers ISolone 7-30 mouth ity of (MEDROL, 00:00: SEE-INSTRU [place] NGA,) 4 mg 00 CTIONS. Medica l tablets follow Branch package directions methylPREDN 2020-0 Yes [id number] Take by Univers ISolone 7-30 mouth ity of (MEDROL, 00:00: SEE-INSTRU [place] NGA,) 4 mg 00 CTIONS. Medica l tablets follow Branch package directions methylPREDN 2020-0 Yes [id number] Take by Univers ISolone 7-30 mouth ity of (MEDROL, 00:00: SEE-INSTRU [place] NGA,) 4 mg 00 CTIONS. Medica l tablets follow Branch package directions heparin 2020-0 Yes 5000U 5,000 Univers (porcine) 7-11 Units, ity of injection 01:00: [place] 5,000 Units 00 us, BID, Medi niranjan First dose Branch on Fri01/28/20 at 2000, Until Discontinu ed, Routine traZODone 2020-0 Yes 50mg Take 50 mg Un satinder 50 mg 7-10 by mouth ity of tablet 20:46: as needed [place] 54 for Medical Insomnia. Branch traZODone 2020-0 Yes 50mg Take 50 mg Un satinder 50 mg 7-10 by mouth ity of tablet 20:46: as needed [place] 54 for Medical Insomnia. Branch traZODone 2020-0 Yes 50mg Take 50 mg Un satinder 50 mg 7-10 by mouth ity of tablet 20:46: as needed [place] 54 for Medical Insomnia. Branch traZODone 2020-0 Yes 50mg Take 50 mg Un satinder 50 mg 7-10 by mouth ity of tablet 20:46: as needed [place] 54 for Medical Insomnia. Branch traZODone 2020-0 Yes 50mg Take 50 mg Un satinder 50 mg 7-10 by mouth ity of tablet 20:46: as needed [place] 54 for Medical Insomnia. Branch traZODone 2020-0 Yes 50mg Take 50 mg Un satinder 50 mg 7-10 by mouth ity of tablet 20:46: as needed [place] 54 for Medical Insomnia. Branch traZODone 2020-0 Yes 50mg Take 50 mg Un satinder 50 mg 7-10 by mouth ity of tablet 20:46: as needed [place] 54 for Medical Insomnia. Branch traZODone 2020-0 Yes 50mg Take 50 mg Un satinder 50 mg 7-10 by mouth ity of tablet 20:46: as needed [place] 54 for Medical Insomnia. Branch traZODone 2020-0 Yes 50mg Take 50 mg Un satinder 50 mg 7-10 by mouth ity of tablet 20:46: as needed [place] 54 for Medical Insomnia. Branch traZODone 2020-0 Yes 50mg Take 50 mg Un satinder 50 mg 7-10 by mouth ity of tablet 20:46: as needed [place] 54 for Medical Insomnia. Branch traZODone 2020-0 Yes 50mg Take 50 mg Un satinder 50 mg 7-10 by mouth ity of tablet 20:46: as needed [place] 54 for Medical Insomnia. Branch traZODone 2020-0 Yes 50mg Take 50 mg Un satinder 50 mg 7-10 by mouth ity of tablet 20:46: as needed [place] 54 for Medical Insomnia. Branch traZODone 2020-0 Yes 50mg Take 50 mg Un satinder 50 mg 7-10 by mouth ity of tablet 20:46: as needed [place] 54 for Medical Insomnia. Branch traZODone 2020-0 Yes 50mg Take 50 mg Un satinder 50 mg 7-10 by mouth ity of tablet 20:46: as needed [place] 54 for Medical Insomnia. Branch traZODone 2020-0 Yes 50mg Take 50 mg Un satinder 50 mg 7-10 by mouth ity of tablet 20:46: as needed [place] [address] for Medical Insomnia. Branch traZODone 2020-0 Yes 50mg Take 50 mg Un satinder 50 mg 7-10 by mouth ity of tablet 20:46: as needed [place] [address] for Medical Insomnia. Branch traZODone 2020-0 Yes 50mg Take 50 mg Un satinder 50 mg 7-10 by mouth ity of tablet 20:46: as needed [place] [address] for Medical Insomnia. Branch traZODone 2020-0 Yes 50mg Take 50 mg Un satinder 50 mg 7-10 by mouth ity of tablet 20:46: as needed [place] [address] for Medical Insomnia. Branch traZODone 2020-0 Yes 50mg Take 50 mg Un satinder 50 mg 7-10 by mouth ity of tablet 20:46: as needed [place] [address] for Medical Insomnia. Branch traZODone 2020-0 Yes 50mg Take 50 mg Un satinder 50 mg 7-10 by mouth ity of tablet 20:46: as needed [place] [address] for Medical Insomnia. Branch pneumococca 2020-0 2020- No .5mL 0.5 mL, Un satinder l vac 7-10 07-10 Intramuscu ity of polyvalent 19:30: 20:00 lar, ONCE, [place] (PNEUMOVAX- 00 :00 1 dose, Medic al 23) [place] [facility] Branch injection 01/28/20 at 0.5 mL 1430, Routine cyclobenzap 2020-0 Yes [id number] 5mg Take 1 Univers rine 5 mg 7-10 tablet by ity o f tablet 00:00: mouth 3 [place] 00 (three) Medical times Branch daily. cyclobenzap 2020-0 Yes [id number] 5mg Take 1 Univers rine 5 mg 7-10 tablet by ity o f tablet 00:00: mouth 3 [place] 00 (three) Medical times Branch daily. cyclobenzap 2020-0 Yes [id number] 5mg Take 1 Univers rine 5 mg 7-10 tablet by ity o f tablet 00:00: mouth 3 [place] 00 (three) Medical times Branch daily. cyclobenzap 2020-0 Yes [id number] 5mg Take 1 Univers rine 5 mg 7-10 tablet by ity o f tablet 00:00: mouth 3 [place] 00 (three) Medical times Branch daily. cyclobenzap 2020-0 Yes [id number] 5mg Take 1 Univers rine 5 mg 7-10 tablet by ity o f tablet 00:00: mouth 3 00 (three) Medical times Branch daily. cyclobenzap 2020-0 Yes [id number] 5mg Take 1 Univers rine 5 mg 7-10 tablet by ity o f tablet 00:00: mouth 3 00 (three) Medical times Branch daily. cyclobenzap 2020-0 Yes [id number] 5mg Take 1 Univers rine 5 mg 7-10 tablet by ity o f tablet 00:00: mouth 3 00 (three) Medical times Branch daily. cyclobenzap 2020-0 Yes [id number] 5mg Take 1 Univers rine 5 mg 7-10 tablet by ity o f tablet 00:00: mouth 3 (three) Medical times Branch daily. cyclobenzap 2020-0 Yes [id number] 5mg Take 1 Univers rine 5 mg 7-10 tablet by ity o f tablet 00:00: mouth 3 (three) Medical times Branch daily. cyclobenzap 2020-0 Yes [id number] 5mg Take 1 Univers rine 5 mg 7-10 tablet by ity o f tablet 00:00: mouth 3 (three) Medical times Branch daily. cyclobenzap 2020-0 Yes [id number] 5mg Take 1 Univers rine 5 mg 7-10 tablet by ity o f tablet 00:00: mouth 3 (three) Medical times Branch daily. cyclobenzap 2020-0 Yes [id number] 5mg Take 1 Univers rine 5 mg 7-10 tablet by ity o f tablet 00:00: mouth 3 (three) Medical times Branch daily. cyclobenzap 2020-0 Yes [id number] 5mg Take 1 Univers rine 5 mg 7-10 tablet by ity o f tablet 00:00: mouth 3 00 (three) Medical times Branch daily. cyclobenzap 2020-0 Yes [id number] 5mg Take 1 Univers rine 5 mg 7-10 tablet by ity o f tablet 00:00: mouth 3 00 (three) Medical times Branch daily. cyclobenzap 2020-0 Yes [id number] 5mg Take 1 Univers rine 5 mg 7-10 tablet by ity o f tablet 00:00: mouth 3 00 (three) Medical times Branch daily. cyclobenzap 2020-0 Yes [id number] 5mg Take 1 Univers rine 5 mg 7-10 tablet by ity o f tablet 00:00: mouth 3 [place] 00 (three) Medical times Branch daily. cyclobenzap 2020-0 Yes [id number] 5mg Take 1 Univers rine 5 mg 7-10 tablet by ity o f tablet 00:00: mouth 3 [place] 00 (three) Medical times Branch daily. cyclobenzap 2020-0 Yes [id number] 5mg Take 1 Univers rine 5 mg 7-10 tablet by ity o f tablet 00:00: mouth 3 [place] 00 (three) Medical times Branch daily. cyclobenzap 2020-0 Yes [id number] 5mg Take 1 Univers rine 5 mg 7-10 tablet by ity o f tablet 00:00: mouth 3 [place] 00 (three) Medical times Branch daily. cyclobenzap 2020-0 Yes [id number] 5mg Take 1 Univers rine 5 mg 7-10 tablet by ity o f tablet 00:00: mouth 3 [place] 00 (three) Medical times Branch daily. HYDROcodone 2019-2019- No [id number] 1{tbl} Take 1 U nivers -acetaminop 7-10 07-18 tablet by it y of hen 5-325 00:00: 04:59 mouth [place] mg tablet 00 :00 every 6 Medical (six) Branch hours as needed for Pain (scale 4-6) or Pain (scale 7-10) for up to 7 days. Indication s: acute pain HYDROcodone 2019-2019- No 4647 1{tbl} Take 1 U nivers -acetaminop 7-10 07-18 tablet by it y of hen 5-325 00:00: 04:59 mouth [place] mg tablet 00 :00 every 6 Medical (six) Branch hours as needed for Pain (scale 4-6) or Pain (scale 7-10) for up to 7 days. Indication s: acute pain HYDROcodone 2019-0 2019- No 4647 1{tbl} Take 1 U nivers -acetaminop 7-10 07-18 tablet by it y of hen 5-325 00:00: 04:59 mouth [place] mg tablet 00 :00 every 6 Medical (six) Branch hours as needed for Pain (scale 4-6) or Pain (scale 7-10) for up to 7 days. Indication s: acute pain HYDROcodone 2020-0 2019- No 4647 1{tbl} Take 1 U nivers -acetaminop 01-27 tablet by it y of hen 5-325 00:00: 04:59 mouth [place] mg tablet 00 :00 every 6 Medical (six) Branch hours as needed for Pain (scale 4-6) or Pain (scale 7-10) for up to 7 days. Indication s: acute pain HYDROcodone 2020-0 2020- No 4647 1{tbl} Take 1 U nivers -acetaminop -02-04 tablet by it y of hen 5-325 00:00: 04:59 mouth [place] mg tablet 00 :00 every 6 Medical (six) Branch hours as needed for Pain (scale 4-6) or Pain (scale 7-10) for up to 7 days. Indication s: acute pain morpHINE 2020-0 Yes 4mg 4 mg, Slow Uni vers injection 4 01-26 IV Push, ity of mg 23:20: Q3HPRN, [place] 12 Starting Medical [facility]af 01/27/20 Branch at 1820, Until Discontinu ed, Routine, severe pain not controlled by tylenol acetaminoph 2020-0 Yes 650mg 650 mg, Un satinder en 01-26 Oral, ity of (TYLENOL) 23:18: Q6HPRN, [place] tablet 650 26 Starting Medic al mg [facility] 01/27/20 Branch at 1818, Until Discontinu ed, Routine, Pain (scale 1-3), Temp > 38.5 C ceFAZolin 2019-0 2020- No 1000mg 1,000 mg, Univers (ANCEF) 01-26 IV ity of 1,000 mg in 23:15: 23:14 Piggyback, [place] NaCl 0.9% 00 :00 Q8H ABX, 3 Medi niranjan (NS) 50 mL doses, Branch MINI-BAG First dose on Sadaf 01/27/20 at 1815, Last dose on Fri01/28/20 at 1015, 50 mL
Reas on for Anti-Infec tive: Surgical Prophylaxi s
Surgi niranjan Prophylaxi s: Neurosurge ry
Dura tion of therapy: within 24 hours of surgery HYDROcodone 2020-0 2020- No 1{tbl} 1 tablet, Univers -acetaminop 01-26 Oral, ity of hen (NORCO 22:45: 22:50 ONCE, 1 [place] as 5) 5-325 mg 00 :00 dose, Sadaf Med ical tablet 1 01/27/20 at [place] tablet 1745, Routine, PACU HYDROmorpho 2020-0 2020- No .2mg 0.2 mg, Un satinder ne 01-26 07- Slow IV ity of (DILAUDID) 22:32: 23:48 Push, [place] injection 54 :12 Q5MIN PRN, Medi niranjan 0.2 mg 10 doses, Branch Starting Fri01/27/20 at 1732, Until Sadaf 01/27/20 at 1848, Routine, Pain (scale 7-10), PACU
Us e approved by (Faculty): PACU USE -ANESTHESI A SERVICE-HY DROMORPHON E INJECTIONS nicotine 2020-0 Yes 1{patch 1 Patch, Un satinder (NICODERM) 01-25 } Topical, ity o f 14 mg/24 hr 22:15: Administer [place] patch 1 00 over 24 Medical Patch Hours, [place] Q24H, First dose on Fri01/26/20 at 1715, Until Discontinu ed, Routine diphenhydrA 2020-0 Yes 25mg 25 mg, Univ ers MINE 01-24 Oral, ity of (BENADRYL) 17:05: Q6HPRN, [place] tablet 25 56 Starting Medica l mg Fri01/25/20 Branch at 1205, Until Discontinu ed, Routine, Itching docusate 2020-0 Yes 100mg 100 mg, Unive rs (COLACE) 01-24 Oral, ity of capsule 100 14:00: DAILY, [place] mg 00 First dose Medical on [place] 01/25/20 at 0900, Until Discontinu ed, Routine pantoprazol 2020-0 Yes 40mg 40 mg, Univ ers e 01-24 Oral, BID, ity of (PROTONIX) 01:00: First dose [place] tablet 00 on [facility] 40 mg 01/24/20 at [place] 1999, Until Discontinu ed, Routine gabapentin 2020-0 Yes 300mg 300 mg, Uni vers (NEURONTIN) 01-24 Oral, TID, it y of capsule 300 01:00: First dose [place] mg 00 on [facility] 01/24/20 at Branch 1999, Until Discontinu ed, Routine NaCl 0.9% 2020-0 Yes 1000mL at 50 Unive rs (NS) IV 7-06 mL/hr, IV ity of infusion 22:45: Infusion, [place] 1,000 mL 00 CONTINUOUS Medic al , Starting Branch [facility] 01/24/20 at 1745, Until Discontinu ed, Routine traZODone 2020-0 Yes 50mg 50 mg, Univer s (DESYREL) 7-06 Oral, ity of tablet 50 21:54: QHSPRN, [place] mg 43 Starting Medical [facility] 01/24/20 Branch at 1654, Until Discontinu ed, Routine, Insomnia ondansetron 2020-0 Yes 4mg 4 mg, Slow Univers (ZOFRAN 7- IV Push, ity of (PF)) 21:38: Q6HPRN, [place] injection 4 49 Starting Medi niranjan mg [facility] 01/24/20 Branch at 1638, Until Discontinu ed, Routine, Nausea and Vomiting (N/V) HYDROcodone 2020-0 Yes 1{tbl} 1 tablet, Univers -acetaminop 7 Oral, ity of hen (NORCO 21:38: Q4HPRN, [place] 5) 5-325 mg 49 Starting Medi niranjan tablet 1 Fri01/24/20 Branc h tablet at 1638, Until Discontinu ed, Routine, Pain (scale 7-10) traMADol 2020-0 Yes 50mg 50 mg, Univers (ULTRAM) 7-06 Oral, ity of tablet 50 21:38: Q4HPRN, [place] mg 49 Starting Medical [facility] 01/24/20 Branch at 1638, Until Discontinu ed, Routine, Pain (scale 4-6) acetaminoph 2020-0 2020- No 650mg 650 mg, U nivers en 01-23 07-06 Oral, ity of (TYLENOL) 15:00: 14:45 ONCE, 1 [place] tablet 650 00 :00 dose, Mon Medi niranjan mg 01/24/20 at Branch 1000, MC gadoteridol 2020-0 2020- No .2mL/kg 14.42 mL Univers (PROHANCE-1 01-23-06 (0.2 mL/kg i ty of 5 mL) 02:30: 02:00 ?72.1 kg), [place] injection 00 :00 Intravenou Medi niranjan 14.42 mL s, ONCE, 1 Branc h dose, 01/23/20 at 2130, Routine traZODone 2020-0 Yes 50mg Take 50 mg Un satinder 50 mg 7-03 by mouth ity of tablet 18:45: as needed [place] 45 for Medical Insomnia. Branch traZODone 2020-0 Yes 50mg Take 50 mg Un satinder 50 mg 7-03 by mouth ity of tablet 18:45: as needed [place] 45 for Medical Insomnia. Branch gabapentin 2020-0 Yes [id number] 300mg Take 1 Univers 300 mg 7-03 capsule by ity of capsule 00:00: mouth 3 [place] 00 (three) Medical times Branch daily. gabapentin 2020-0 Yes [id number] 300mg Take 1 Univers 300 mg 7-03 capsule by ity of capsule 00:00: mouth 3 [place] (three) Medical times Branch daily. gabapentin 2020-0 Yes [id number] 300mg Take 1 Univers 300 mg 7-03 capsule by ity of capsule 00:00: mouth 3 [place] (three) Medical times Branch daily. gabapentin 2020-0 Yes [id number] 300mg Take 1 Univers 300 mg 7-03 capsule by ity of capsule 00:00: mouth [place] (three) Medical times Branch daily. gabapentin 2020-0 Yes [id number] 300mg Take 1 Univers 300 mg 7-03 capsule by ity of capsule 00:00: mouth [place] (three) Medical times Branch daily. gabapentin 2020-0 Yes [id number] 300mg Take 1 Univers 300 mg 7-03 capsule by ity of capsule 00:00: mouth 3 [place] (three) Medical times Branch daily. gabapentin 2020-0 Yes [id number] 300mg Take 1 Univers 300 mg 7-03 capsule by ity of capsule 00:00: mouth 3 [place] (three) Medical times Branch daily. gabapentin 2020-0 Yes [id number] 300mg Take 1 Univers 300 mg 7-03 capsule by ity of capsule 00:00: mouth 3 [place] 00 (three) Medical times Branch daily. gabapentin 2020-0 Yes [id number] 300mg Take 1 Univers 300 mg 7-03 capsule by ity of capsule 00:00: mouth 3 00 (three) Medical times Branch daily. gabapentin 2020-0 Yes [id number] 300mg Take 1 Univers 300 mg 7-03 capsule by ity of capsule 00:00: mouth 3 [place] 00 (three) Medical times Branch daily. gabapentin 2020-0 Yes [id number] 300mg Take 1 Univers 300 mg 7-03 capsule by ity of capsule 00:00: mouth (three) Medical times Branch daily. gabapentin 2020-0 Yes [id number] 300mg Take 1 Univers 300 mg 7-03 capsule by ity of capsule 00:00: mouth (three) Medical times Branch daily. gabapentin 2020-0 Yes [id number] 300mg Take 1 Univers 300 mg 7-03 capsule by ity of capsule 00:00: mouth (three) Medical times Branch daily. gabapentin 2020-0 Yes [id number] 300mg Take 1 Univers 300 mg 7-03 capsule by ity of capsule 00:00: mouth (three) Medical times Branch daily. gabapentin 2020-0 Yes [id number] 300mg Take 1 Univers 300 mg 7-03 capsule by ity of capsule 00:00: mouth (three) Medical times Branch daily. gabapentin 2020-0 Yes [id number] 300mg Take 1 Univers 300 mg 7-03 capsule by ity of capsule 00:00: mouth (three) Medical times Branch daily. gabapentin 2020-0 Yes [id number] 300mg Take 1 Univers 300 mg 7-03 capsule by ity of capsule 00:00: mouth (three) Medical times Branch daily. gabapentin 2020-0 Yes [id number] 300mg Take 1 Univers 300 mg 7-03 capsule by ity of capsule 00:00: mouth (three) Medical times Branch daily. gabapentin 2020-0 Yes [id number] 300mg Take 1 Univers 300 mg 7-03 capsule by ity of capsule 00:00: mouth (three) Medical times Branch daily. gabapentin 2020-0 Yes [id number] 300mg Take 1 Univers 300 mg 7-03 capsule by ity of capsule 00:00: mouth (three) Medical times Branch daily. gabapentin 2020-0 Yes [id number] 300mg Take 1 Univers 300 mg 7-03 capsule by ity of capsule 00:00: mouth (three) Medical times Branch daily. gabapentin 2020-0 Yes [id number] 300mg Take 1 Univers 300 mg 7-03 capsule by ity of capsule 00:00: mouth 3 (three) Medical times Branch daily. pantoprazol 2018-0 Yes 40mg Take 1 Univ ers e 40 mg EC 9-11 tablet by ity of tablet 00:00: mouth 2 (two) Medical times Branch daily. pantoprazol 2018-0 Yes 40mg Take 1 Univ ers e 40 mg EC 9-11 tablet by ity of tablet 00:00: mouth (two) Medical times Branch daily. albuterol 2018-0 Yes 2{puff} Inhale 2 U nivers 90 9-11 Puffs ity of mcg/actuati 00:00: every 6 [place] as on inhaler 00 (six) Medical hours as Branch needed for Wheezing or Shortness of Breath. albuterol 2018-0 Yes 2{puff} Inhale 2 U nivers 90 9-11 Puffs ity of mcg/actuati 00:00: every 6 [place] as on inhaler 00 (six) Medical hours as Branch needed for Wheezing or Shortness of Breath. pantoprazol 2018-0 Yes 40mg Take 1 Univ ers e 40 mg EC 9-11 tablet by ity of tablet 00:00: mouth (two) Medical times Branch daily. albuterol 2018-0 Yes 2{puff} Inhale 2 U nivers 90 9-11 Puffs ity of mcg/actuati 00:00: every 6 [place] as on inhaler 00 (six) Medical hours as Branch needed for Wheezing or Shortness of Breath. pantoprazol 2018-0 Yes 40mg Take 1 Univ ers e 40 mg EC 9-11 tablet by ity of tablet 00:00: mouth 2 (two) Medical times Branch daily. albuterol 2018-0 Yes 2{puff} Inhale 2 U nivers 90 9-11 Puffs ity of mcg/actuati 00:00: every 6 [place] as on inhaler 00 (six) Medical hours as Branch needed for Wheezing or Shortness of Breath. pantoprazol 2018-0 Yes 40mg Take 1 Univ ers e 40 mg EC 9-11 tablet by ity of tablet 00:00: mouth (two) Medical times Branch daily. albuterol 2018-0 Yes 2{puff} Inhale 2 U nivers 90 9-11 Puffs ity of mcg/actuati 00:00: every 6 [place] as on inhaler 00 (six) Medical hours as Branch needed for Wheezing or Shortness of Breath. pantoprazol 2018-0 Yes 40mg Take 1 Univ ers e 40 mg EC 9-11 tablet by ity of tablet 00:00: mouth 2 (two) Medical times Branch daily. albuterol 2018-0 Yes 2{puff} Inhale 2 U nivers 90 9-11 Puffs ity of mcg/actuati 00:00: every 6 [place] as on inhaler 00 (six) Medical hours as Branch needed for Wheezing or Shortness of Breath. pantoprazol 2018-0 Yes 40mg Take 1 Univ ers e 40 mg EC 9-11 tablet by ity of tablet 00:00: mouth (two) Medical times Branch daily. albuterol 2018-0 Yes 2{puff} Inhale 2 U nivers 90 9-11 Puffs ity of mcg/actuati 00:00: every 6 [place] as on inhaler 00 (six) Medical hours as Branch needed for Wheezing or Shortness of Breath. pantoprazol 2018-0 Yes 40mg Take 1 Univ ers e 40 mg EC 9-11 tablet by ity of tablet 00:00: mouth (two) Medical times Branch daily. albuterol 2018-0 Yes 2{puff} Inhale 2 U nivers 90 9-11 Puffs ity of mcg/actuati 00:00: every 6 [place] on inhaler 00 (six) Medical hours as Branch needed for Wheezing or Shortness of Breath. pantoprazol 2018-0 Yes 40mg Take 1 Univ ers e 40 mg EC 9-11 tablet by ity of tablet 00:00: mouth (two) Medical times Branch daily. albuterol 2018-0 Yes 2{puff} Inhale 2 U nivers 90 9-11 Puffs ity of mcg/actuati 00:00: every 6 [place] as on inhaler 00 (six) Medical hours as Branch needed for Wheezing or Shortness of Breath. pantoprazol 2018-0 Yes 40mg Take 1 Univ ers e 40 mg EC 9-11 tablet by ity of tablet 00:00: mouth 2 (two) Medical times Branch daily. albuterol 2018-0 Yes 2{puff} Inhale 2 U nivers 90 9-11 Puffs ity of mcg/actuati 00:00: every 6 [place] as on inhaler 00 (six) Medical hours as Branch needed for Wheezing or Shortness of Breath. pantoprazol 2018-0 Yes 40mg Take 1 Univ ers e 40 mg EC 9-11 tablet by ity of tablet 00:00: mouth (two) Medical times Branch daily. albuterol 2018-0 Yes 2{puff} Inhale 2 U nivers 90 9-11 Puffs ity of mcg/actuati 00:00: every 6 [place] as on inhaler 00 (six) Medical hours as Branch needed for Wheezing or Shortness of Breath. pantoprazol 2018-0 Yes 40mg Take 1 Univ ers e 40 mg EC 9-11 tablet by ity of tablet 00:00: mouth (two) Medical times Branch daily. albuterol 2018-0 Yes 2{puff} Inhale 2 U nivers 90 9-11 Puffs ity of mcg/actuati 00:00: every 6 [place] as on inhaler 00 (six) Medical hours as Branch needed for Wheezing or Shortness of Breath. pantoprazol 2018-0 Yes 40mg Take 1 Univ ers e 40 mg EC 9-11 tablet by ity of tablet 00:00: mouth (two) Medical times Branch daily. pantoprazol 2018-0 Yes 40mg Take 1 Univ ers e 40 mg EC 9-11 tablet by ity of tablet 00:00: mouth (two) Medical times Branch daily. albuterol 2018-0 Yes 2{puff} Inhale 2 U nivers 90 9-11 Puffs ity of mcg/actuati 00:00: every 6 [place] as on inhaler 00 (six) Medical hours as Branch needed for Wheezing or Shortness of Breath. albuterol 2018-0 Yes 2{puff} Inhale 2 U nivers 90 9-11 Puffs ity of mcg/actuati 00:00: every 6 [place] as on inhaler 00 (six) Medical hours as Branch needed for Wheezing or Shortness of Breath. pantoprazol 2018-0 Yes 40mg Take 1 Univ ers e 40 mg EC 9-11 tablet by ity of tablet 00:00: mouth (two) Medical times Branch daily. albuterol 2018-0 Yes 2{puff} Inhale 2 U nivers 90 9-11 Puffs ity of mcg/actuati 00:00: every 6 [place] as on inhaler 00 (six) Medical hours as Branch needed for Wheezing or Shortness of Breath. pantoprazol 2018-0 Yes 40mg Take 1 Univ ers e 40 mg EC 9-11 tablet by ity of tablet 00:00: mouth (two) Medical times Branch daily. albuterol 2018-0 Yes 2{puff} Inhale 2 U nivers 90 9-11 Puffs ity of mcg/actuati 00:00: every 6 [place] as on inhaler 00 (six) Medical hours as Branch needed for Wheezing or Shortness of Breath. pantoprazol 2018-0 Yes 40mg Take 1 Univ ers e 40 mg EC 9-11 tablet by ity of tablet 00:00: mouth (two) Medical times Branch daily. albuterol 2018-0 Yes 2{puff} Inhale 2 U nivers 90 9-11 Puffs ity of mcg/actuati 00:00: every 6 [place] as on inhaler 00 (six) Medical hours as Branch needed for Wheezing or Shortness of Breath. pantoprazol 2018-0 Yes 40mg Take 1 Univ ers e 40 mg EC 9-11 tablet by ity of tablet 00:00: mouth (two) Medical times Branch daily. albuterol 2018-0 Yes 2{puff} Inhale 2 U nivers 90 9-11 Puffs ity of mcg/actuati 00:00: every 6 [place] as on inhaler 00 (six) Medical hours as Branch needed for Wheezing or Shortness of Breath. pantoprazol 2018-0 Yes 40mg Take 1 Univ ers e 40 mg EC 9-11 tablet by ity of tablet 00:00: mouth (two) Medical times Branch daily. albuterol 2018-0 Yes 2{puff} Inhale 2 U nivers 90 9-11 Puffs ity of mcg/actuati 00:00: every 6 [place] as on inhaler 00 (six) Medical hours as Branch needed for Wheezing or Shortness of Breath. pantoprazol 2018-0 Yes 40mg Take 1 Univ ers e 40 mg EC 9-11 tablet by ity of tablet 00:00: mouth (two) Medical times Branch daily. albuterol 2018-0 Yes 2{puff} Inhale 2 U nivers 90 9-11 Puffs ity of mcg/actuati 00:00: every 6 [place] as on inhaler 00 (six) Medical hours as Branch needed for Wheezing or Shortness of Breath. pantoprazol 2018-0 Yes 40mg Take 1 Univ ers e 40 mg EC 9-11 tablet by ity of tablet 00:00: mouth 2 [place] 00 (two) Medical times Branch daily. albuterol Yes 2{puff} Inhale 2 U nivers 90 9-11 Puffs ity of mcg/actuati 00:00: every 6 [place] as on inhaler 00 (six) Medical hours as Branch needed for Wheezing or Shortness of Breath. pantoprazol Yes 40mg Take 1 Univ ers e 40 mg EC 9-11 tablet by ity of tablet 00:00: mouth 2 [place] 00 (two) Medical times Branch daily. albuterol Yes 2{puff} Inhale 2 U nivers 90 9-11 Puffs ity of mcg/actuati 00:00: every 6 [place] as on inhaler 00 (six) Medical hours as Branch needed for Wheezing or Shortness of Breath. Immunizations Ordered Filled Immunization Date Status Comments [facility] Immunization Name Name Pneumococcal 2020-01-28 Completed University o f Polysaccharide, 00:00:00 [place] [facility] ical PPSV23 (PNEUMOVAX) Branch Pneumococcal 2020-01-28 Completed University o f Polysaccharide, 00:00:00 [place] [facility] ical PPSV23 (PNEUMOVAX) Branch Pneumococcal 2020-01-28 Completed University o f Polysaccharide, 00:00:00 [place] [facility] ical PPSV23 (PNEUMOVAX) Branch Pneumococcal 2020-01-28 Completed University o f Polysaccharide, 00:00:00 [place] [facility] ical PPSV23 (PNEUMOVAX) Branch Pneumococcal 2020-01-28 Completed University o f Polysaccharide, 00:00:00 [place] [facility] ical PPSV23 (PNEUMOVAX) Branch Pneumococcal 2020-01-28 Completed University o f Polysaccharide, 00:00:00 [place] [facility] ical PPSV23 (PNEUMOVAX) Branch Pneumococcal 2020-01-28 Completed University o f Polysaccharide, 00:00:00 [place] [facility] ical PPSV23 (PNEUMOVAX) Branch Pneumococcal 2020-01-28 Completed University o f Polysaccharide, 00:00:00 [place] [facility] ical PPSV23 (PNEUMOVAX) Branch Pneumococcal 2020-01-28 Completed University o f Polysaccharide, 00:00:00 [place] [facility] ical PPSV23 (PNEUMOVAX) Branch Pneumococcal 2020-01-28 Completed University o f Polysaccharide, 00:00:00 [place] [facility] ical PPSV23 (PNEUMOVAX) Branch Pneumococcal 2020-01-28 Completed University o f Polysaccharide, 00:00:00 [place] [facility] ical PPSV23 (PNEUMOVAX) Branch Pneumococcal 2020-01-28 Completed University o f Polysaccharide, 00:00:00 [place] [facility] ical PPSV23 (PNEUMOVAX) Branch Pneumococcal 2020-01-28 Completed University o f Polysaccharide, 00:00:00 [place] [facility] ical PPSV23 (PNEUMOVAX) Branch Pneumococcal 2020-01-28 Completed University o f Polysaccharide, 00:00:00 [place] [facility] ical PPSV23 (PNEUMOVAX) Branch Pneumococcal 2020-01-28 Completed University o f Polysaccharide, 00:00:00 [place] [facility] ical PPSV23 (PNEUMOVAX) Branch Pneumococcal 2020-01-28 Completed University o f Polysaccharide, 00:00:00 [place] [facility] ical PPSV23 (PNEUMOVAX) Branch Pneumococcal 2020-01-28 Completed University o f Polysaccharide, 00:00:00 [place] [facility] ical PPSV23 (PNEUMOVAX) Branch Pneumococcal 2020-01-28 Completed University o f Polysaccharide, 00:00:00 [place] [facility] ical PPSV23 (PNEUMOVAX) Branch Pneumococcal 2020-01-28 Completed University o f Polysaccharide, 00:00:00 [place] [facility] ical PPSV23 (PNEUMOVAX) Branch Vital Signs Vital Name Observation Time Observation Value Comments Source Systolic blood 2020-04-04 16:13:00 137 mm[Hg] Univer [facility] Diastolic blood 2020-04-04 16:13:00 82 mm[Hg] Unive rsity of [facility] Heart rate 2020-04-04 16:13:00 101 /min [facility] Body height 2020-04-04 16:13:00 157.5 cm [facility] Body weight 2020-04-04 16:13:00 72.576 kg [facility] BMI 2020-04-04 16:13:00 29.26 kg/m2 [facility] Systolic blood 2020-04-04 16:13:00 137 mm[Hg] Univer sity of pressure [facility] Diastolic blood 2020-04-04 16:13:00 82 mm[Hg] Unive rsity of pressure [facility] Heart rate 2020-04-04 16:13:00 101 /min [facility] [place] [facility] Body height 2020-04-04 16:13:00 157.5 cm [facility] [place] [facility] Body weight 2020-04-04 16:13:00 72.576 kg [facility] [place] [facility] BMI 2020-04-04 16:13:00 29.26 kg/m2 Universi ty of [facility] Systolic blood 2020-03-02 13:56:00 128 mm[Hg] Univer sity of pressure [place] [facility] Diastolic blood 2020-03-02 13:56:00 78 mm[Hg] Unive rsity of pressure [facility] Heart rate 2020-03-02 13:55:00 100 /min Universi ty of [facility] Respiratory rate 2020-03-02 13:55:00 16 /min Univ ersity of [facility] Body height 2020-03-02 13:55:00 157.5 cm Universi ty of [facility] Body weight 2020-03-02 13:55:00 73.755 kg [facility]i [facility] [place] [facility] BMI 2020-03-02 13:55:00 29.74 kg/m2 [facility] [place] [facility] Oxygen saturation in 2020-03-02 13:55:00 98 /min University of Arterial blood by [facility] Pulse oximetry Branch Systolic blood 2020-02-22 19:48:00 128 mm[Hg] Univer sity of pressure [place] [facility] Diastolic blood 2020-02-22 19:48:00 77 mm[Hg] Unive rsity of pressure [facility] Branch Heart rate 2020-02-22 19:48:00 109 /min [facility]i [facility] [place] [facility] Body height 2020-02-22 19:48:00 157.5 cm [facility] [place] [facility] Body weight 2020-02-22 19:48:00 72.984 kg [facility] [place] [facility] BMI 2020-02-22 19:48:00 29.43 kg/m2 Universi ty of [facility] Systolic blood 2020-01-28 16:24:00 126 mm[Hg] Univer sity of pressure [place] [facility] Diastolic blood 2020-01-28 16:24:00 64 mm[Hg] Unive rsity of pressure [facility] Branch Heart rate 2020-01-28 16:24:00 88 /min Universi ty of [facility] Body temperature 2020-01-28 16:24:00 36.67 Stefany [facility] Respiratory rate 2020-01-28 16:24:00 18 /min [facility] Oxygen saturation in 2020-01-28 16:24:00 97 /min [facility] Arterial blood by [facility] Pulse oximetry Branch Body height 2020-01-25 02:01:00 157.5 cm Universi ty [facility] Body weight 2020-01-25 02:01:00 67.586 kg Universi ty [facility] BMI 2020-01-25 02:01:00 27.25 kg/m2 Universi ty [facility] Systolic blood 2020-01-21 18:46:00 143 mm[Hg] Univer sity of [facility] Diastolic blood 2020-01-21 18:46:00 84 mm[facility]Hg[facility] 2020-01-21 18:46:00 76 /min Universi [facility] Body temperature 2020-01-21 18:43:00 37.17 Stefany [facility] 2020-01-21 18:43:00 15 /min [facility] Body height 2020-01-21 18:43:00 157.5 cm Universi ty [facility] Body weight 2020-01-21 18:43:00 [facility] BMI 2020-01-21 18:43:00 29.08 kg/m2 [facility] Procedures Procedure Date / Time Performing Clinician Source Performed PATIENT QUESTIONNAIRE 2020-03-02 05:01:00 Doctor Unassigned, No [facility] BASIC METABOLIC PANEL 2020-01-28 09:58:00 [facility] (NA, K, CL, CO2, Medical Branch GLUCOSE, BUN, CREATININE, CA) CBC WITH DIFFERENTIAL 2020-01-28 09:58:00 Wilfredo Devine [facility] XR LUMBAR SPINE 1 VW 2020-01-27 20:09:01 Eris Marcano [facility] XR LUMBAR SPINE 1 VW 2020-01-27 19:46:40 Eris Marcano [facility] LAMINECTOMY LUMBAR WITH 2020-01-27 18:12:00 Qian Andrade Ingrid [facility] DISCECTOMY [facility] Branch URINE CULTURE 2020-01-27 17:19:00 Nilson [facility] PROTHROMBIN TIME / INR 2020-01-27 12:35:00 [facility] ACTIVATED PARTIAL 2020-01-27 12:35:00 Nilson [facility] HB ABO GROUPING 2020-01-27 12:30:00 Nilson [facility] CBC WITH DIFFERENTIAL 2020-01-27 10:04:00 Nilson [facility] BASIC METABOLIC PANEL 2020-01-27 10:04:00 Nilson [facility] (NA, K, CL, CO2, Medical Branch GLUCOSE, BUN, CREATININE, CA) CBC WITH DIFFERENTIAL 2020-01-26 09:35:00 Nilson [facility] BASIC METABOLIC PANEL 2020-01-26 09:35:00 Nilson [facility] (NA, K, CL, CO2, Medical Branch GLUCOSE, BUN, CREATININE, CA) CBC WITH DIFFERENTIAL 2020-01-25 09:15:00 Nilson [facility] BASIC METABOLIC PANEL 2020-01-25 09:15:00 Nilson [facility] (NA, K, CL, CO2, Medical Branch GLUCOSE, BUN, CREATININE, CA) PROTHROMBIN TIME / INR 2020-01-25 00:22:00 [facility] 2020-01-25 00:22:00 [facility] 2020-01-25 00:22:00 Nilson [facility] BASIC METABOLIC PANEL 2020-01-25 00:22:00 Nilson [facility] (NA, K, CL, CO2, Medical Branch GLUCOSE, BUN, CREATININE, CA) CBC WITH DIFFERENTIAL 2020-01-25 00:21:00 Nilson [facility] MR LUMBAR SPINE W WO 2020-01-24 02:15:00 Shin Albarran [facility] COVID-19 (ID NOW RAPID 2020-01-24 00:01:00 Shin Albarran [facility] TESTING) Medical Branch URINALYSIS 2020-01-23 22:59:00 [facility] o f [facility] BASIC METABOLIC PANEL 2020-01-23 22:58:00 Shin [facility] (NA, K, CL, CO2, Medical Branch GLUCOSE, BUN, CREATININE, CA) Encounters Start End Encounter Admission Attending Care Care Encounter Source Date/Time Date/Time Type Type Clinicians Facility Department ID 2021-05-[address] [facility] [id number] [facility]-05-11 Inpatient HCAPM CHERYL [id number] [facility] 17:52:00 [id number] [facility] 2021-05-11 2021-05-11 Emergency EM Federico Qureshi HCAPM CHERYL [id number] [facility] 17:52:00 21:42:00 14 [facility] 2020-10-10 2020-10-10 [facility] 1.2.840.114 [id number] Univers 00:00:00 00:00:00 Outreach Mohit PRIMARY [id number] i ty of [place] CARE [id number] [place] [phone] Nh dical [address] [place] [address] 2020-10-10 2020-10-10 [facility] 1.2.840.114 [id number] 00:00:00 00:00:00 Outreach Mohit PRIMARY [id number] Yves CARE [id number] PAVILLION [id number] 2020-04-04 2020-04-04 [facility] [id number] Q-[id number] Univers 11:15:00 11:15:00 [id number] [facility] 2020-04-04 2020-04-[address] [facility] [id number] Univers 11:15:00 11:15:00 DECEMBER ity [facility] 2020-04-04 2020-04-04 [facility] [id number] Univers 11:15:00 11:15:00 DECEMBER ity [facility] 2020-04-04 2020-04-04 Office Nitin [facility] 1.2.840.114 [id number] Univers 10:33:36 10:48:36 Visit Qian [facility] [id number] ity [id number] [phone] [address] Office Building 2020-04-04 2020-04-04 Office Nitin [facility] 1.2.840.114 [id number] 10:33:36 10:48:36 Visit [facility] [id number] [place] [id number] [place] [id number] [address] 2020-03-29 2020-03-[address] [facility] [id number] Q-[id number] Univers 11:15:00 11:15:00 December [facility] 2020-03-29 2020-03-[address] [facility] [id number] Univers 11:15:00 11:15:00 [facility] ity [facility] 2020-03-24 2020-03-24 Telephone [facility] 1.2.840.114 [id number] Univers 00:00:00 00:00:00 [facility] [id number] ity [id number] [id number] [address] Office Building 2020-03-23 2020-03-[address] [facility] [id number] Univers 14:30:00 14:30:00 [facility] 2020-03-23 2020-03-[address] [facility] [id number] Univers 14:30:00 14:30:00 [facility] 2020-03-23 2020-03-23 Telephone [facility] 1.2.840.114 [id number] Univers 00:00:00 00:00:00 Bahman MULTISPEC [id number] ity [id number] [id number] [facility] [address] [facility] 2020-03-22 2020-03-22 [address] [facility] [id number] Q-[id number] Univers 13:15:00 13:15:00 December ity of [facility] 2020-03-15 2020-03-[address] [facility] [id number] Q-[id number] Univers 10:30:00 10:30:00 [id number] ity of [facility] 2020-03-15 2020-03-15 Outpatient [facility] [id number] Univers 10:30:00 10:30:00 DECEMBER ity of [facility] 2020-03-07 2020-03-07 Outpatient R [facility] [id number] Q-20 Univers 10:45:00 10:45:00 [id number] ity of [facility] 2020-03-02 2020-03-02 Office [facility] 1.2.840.114 [id number] Univers 08:38:55 10:24:57 Visit Bahman [facility] [id number] ity of [facility] [id number] [facility] [place] [phone] [facility] 2020-03-02 2020-03-02 [facility] [id number] Univers 09:00:00 09:00:00 BAHMAN [id number] ity of [facility] 2020-03-02 2020-03-[address] [facility] [id number] Univers 09:00:00 09:00:00 [facility] ity [facility] 2020-03-02 2020-03-02 Orders Doctor ANU 1.2.840.114 [id number] Univers 00:00:00 00:00:00 Only Unassigned, TRAY [id number] ity of [place] [facility] [id number] [place] [phone] [place] [address] Branch 2020-02-22 2020-02-22 [facility] 1.2.840.114 [id number] Univers 13:48:46 15:34:27 Visit December [facility] [id number] ity [id number] [phone] [address] Office Building 2020-02-22 2020-02-[address] [facility] [id number] Q-[id number] Univers 14:15:00 14:15:00 December ity of [facility] 2020-02-22 2020-02-22 [facility] [id number] Univers 14:15:00 14:15:00 QIAN ity [facility] 2020-02-17 2020-02-17 Telephone [facility] 1.2.840.114 [id number] Univers 00:00:00 00:00:00 Qian [facility] [id number] ity [id number] [id number] [address] Office Building 2020-02-11 2020-02-11 Office Clinic, Neurosurgery Residen t UNIVERSIT 1.2.840.114 [id number] Univers 12:40:36 14:03:31 Visit Nitin Qian [employer] [facility] 350.1.13 .10 ity of [id number] [id number] [address] 2020-02-11 2020-02-[address] [facility] [id number] Univers 13:00:00 13:00:00 QIAN ity [facility] 2020-02-03 2020-02-03 Telephone [facility] 1.2.840.114 [id number] Univers 00:00:00 00:00:00 Qian [facility] [id number] ity [id number] [id number] [address] Office Building 2020-01-31 2020-01-31 Transition Kristina Marie 1.2.840.114 [id number] Univers 00:00:00 00:00:00 of Care Michaela Alanis [id number] ity [id number] [phone] [address] 2020-01-23 2020-01-28 [facility] Jenelle Guardado 1.2.84 0.114 [id number] Univers 16:20:21 15:18:00 Encounter Eduin Bansal 350.1.13.1 0 ity of [facility] [id number] [place] Qian Andrade [id number] Medical 094 Branch 2020-01-25 2020-01-25 Telephone ANU Albarran 1.2.840.114 [id number] Univers 00:00:00 00:00:00 Shin FELIZ [id number] it y of [facility] [id number] [place] [phone] [facility] 019 Branch 2020-01-21 2020-01-21 Office SEVEN Gutierrez 1.2.840.114 [id number] Univers 13:30:27 14:00:27 Visit Yadi Fortune [facility] [id number] ity of [facility] [id number] Kaleb comer [id number] [facility] 196 Branch 2020-01-21 2020-01-[address] [facility] [id number] Univers 13:15:00 13:15:00 YADI [facility] 2017-03-26 2017-03-26 Emergency E [facility] [id number] Medical 14:55:00 14:55:00 [facility] [facility] 2017-03-07 2017-03-07 Emergency E [facility] MED [id number] Medical 17:01:00 17:01:00 [facility] 2017-02-22 2017-02-22 Emergency E [facility] MED [id number] Medical 11:40:00 11:40:00 [facility] Results Test Description Test Time Test Comments Results Result [facility] e Comments - CT ABD PELVIS 2021-05-11 W/CONT 20:45:00 [facility] DONNALANDName: KEKE HAYNES : 1965 Sex: F Name: KEKE HAYNES : 1965 Age/S: 55 / F [address] [place] Unit #: [id number] Loc: [place] [address] Phys: Federico Qureshi DO Acct: [id number] Dis Date: Status: REG ER PHONE #: [phone] Exam Date: 05/11/20212029 FAX #: Reason: pain - s/p colonoscopy yesterday EXAMS: CPT: [id number] CT ABD PELVIS W/CONT 54939 EXAMINATION: - CT ABD PELVIS W/CONT COMPARISON: None HISTORY: Abdominal pain after colonoscopy LOCATION CODE: C3 TECHNIQUE: CT of the Abdomen and Pelvis with intravenous contrast. Oral contrast was not administered. Axial contrast enhanced images of the abdomen and pelvis were obtained and reviewed in soft tissue, bone and lung windows. Coronal and sagittal reconstructed images were also provided for review. All CT scans are performed using dose optimization techniques as appropriate to a performed exam including one or more of the following: ?Automated exposure control ?Adjustment of the mA and/or kV according to patient size ?Use of iterative reconstruction technique FINDINGS ABDOMEN: 1 cm cyst is seen inferiorly in the right lobe the liver. The liver is otherwise normal. The gallbladder is absent. The common bile duct is dilated measuring 1.9 cm there is also dilatation of intrahepatic biliary system. The common bile duct is patent throughout the head of the pancreas and there is no dilatation of the pancreatic duct. In the absence of abnormal laboratory values, findings may be related to reservoir effect secondary to the patient's cholecystectomy status. Benign granulomas are present in the spleen. The pancreas, adrenal glands and kidneys are normal. There is no free air, free fluid or lymphadenopathy. Atheromatous plaquing is present in the vessels. Dependent atelectasis is seen in the lower lungs. Bilateral breast implants are present and are partially imaged. Dextroscoliosis and degenerative disc changes are present in the spine. FINDINGS PELVIS: Urinary bladder is mildly distended but is otherwise unremarkable. Uterus and ovaries are absent. There is no free air, free fluid or lymphadenopathy. Atheromatous plaquing is present in the vessels. No suspicious bowel lesions are identified. Osteoarthritic changes are seen in the hips and sacroiliac joints. IMPRESSION: PAGE 1 Signed Report (CONTINUED) Name: KEKE HAYNES : 1965 Age/S: 55 / F [address] Unit #: [id number] Loc: [place] [address] Phys: Federico Qureshi DO Acct: [id number] Dis Date: Status: REG ER PHONE #: [phone] Exam Date: 05/11/20212029 FAX #: Reason: pain - s/p colonoscopy yesterday EXAMS: CPT: [id number] CT ABD PELVIS W/CONT 39099 <Continued> No evidence of bowel perforation or other acute abnormality Dilated common bile duct and intrahepatic biliary system. In the absence of abnormal laboratory values, findings may be related to reservoir effect secondary to the patient's cholecystectomy status at 2044 Reported and signed by: Silvia Olmedo M.D. CC: Federico Qureshi DO Technologist:RT Todd (R)(CT) CTDI: DLP: Trnscb Date/Time: 05/11/2021 (2044) [id number] Orig Print D/T: S: 05/11/2021 (2047) PAGE 2 Signed Report LIPASE 2021-05-11 19:26:00 Test Item Value Reference Range Interpretation Comme nts LIPASE (test code = LIP) 73 Unit/L 114-286 L BASIC METABOLIC [id number] 19:26:00 Test Item Value Reference Range Interpretation Comments SODIUM (test code = NA) 138 mmol/L 134-147 N POTASSIUM (test code = 3.7 mmol/L 3.4-5.0 N K) CHLORIDE (test code = 104 mmol/L 100-108 N CL) CARBON DIOXIDE (test 26 mmol/L 21-32 N code = CO2) ANION GAP (test code = 8.0 GAP calc 4.0-15.0 N GAP) GLUCOSE (test code = 102 MG/DL 70-110 N GLU) BLOOD UREA NITROGEN 9 MG/DL 7-18 N (test code = BUN) GLOMERULAR FILTRATION >=60 max estimate >60 RATE (test code = GFR) estGFR CREATININE (test code = 0.6 MG/DL 0.6-1.0 N CREAT) CALCIUM (test code = CA) 9.5 MG/DL 8.5-10.1 N HEPATIC FUNCTION [id number] 19:26:00 Test Item Value Reference Range Interpretation Comments TOTAL PROTEIN (test code = PROT) 7.9 G/DL 6.4-8.2 N ALBUMIN (test code = ALB) 4.1 G/DL 3.4-5.0 N BILIRUBIN TOTAL (test code = 0.40 MG/DL 0.2-1.2 N BILT) BILIRUBIN DIRECT (test code = < 0.10 MG/DL 0.00-0.30 N BILD) BILIRUBIN INDIRECT (test code = 0.30 MG/DL 0.2-1.2 N BILIND) SGOT/AST (test code = AST) 29 Unit/L 15-37 N SGPT/ALT (test code = ALT) 52 Unit/L 12-78 N ALKALINE PHOSPHATASE TOTAL (test 108 Unit/L 45-117 N code = ALKP) UA RFLX MICR CULT IF [id number] 19:08:00 Test Item Value Reference Range Interpretation Comments UA COLOR (test code = YELLOW discript YEL/STRAW COLU) UA APPEARANCE (test code CLEAR discript CLEAR = APPU) UA GLUCOSE DIPSTICK (test NEGATIVE mg/dL NEG code = DGLUU) UA BILIRUBIN DIPSTICK NEGATIVE mg/dL NEG (test code = BILU) UA KETONE DIPSTICK (test NEGATIVE mg/dL NEG code = KETU) UA SPECIFIC GRAVITY (test <=1.005 SG 1.005-1.030 code = SGU) UA BLOOD DIPSTICK (test 1+ mg/DL NEG A code = ERMELINDA) UA PH DIPSTICK (test code 6.0 pH UNITS 5.0-7.0 = SID) UA PROTEIN DIPSTICK (test NEGATIVE mg/dL NEG code = PROU) UA UROBILINIOGEN DIPSTICK 0.2 mg/dL <2.0 (test code = URO) UA NITRITE DIPSTICK (test NEGATIVE SCREEN NEG code = RADHA) UA LEUKOCYTE ESTERASE NEGATIVE Leuk/mcL NEGATIVE DIPSTICK (test code = LEUU) UA CULTURE NEEDED? (test NO, WBC<10 Criteria Culture CHK code = UACULT) UA WBC (test code = WBCU) NONE SEEN #WBC/HPF 0-3 UA RBC (test code = RBCU) NONE SEEN #RBC/HPF 0-3 UA BACTERIA (test code = TRACE /HPF NONE-TRACE BACU) Indication for culture: Flank PainCBC W/AUTO [id number] 18:41:00 Test Item Value Reference Range Interpretation Comments WHITE BLOOD CELL (test code = 6.6 K/mm3 3.5-11.0 N WBC) RED BLOOD CELL (test code = 4.27 M/mm3 4.70-6.10 L RBC) HEMOGLOBIN (test code = HGB) 12.9 G/DL 10.4-14.9 N HEMATOCRIT (test code = HCT) 39.5 % 31.5-44.1 N MEAN CELL VOLUME (test code = 92.5 Fl 84.5-98.6 N MCV) MEAN CELL HGB (test code = MCH) 30.2 pg 27.0-34.2 N MEAN CELL HGB CONCETRATION 32.7 G/DL 31.5-34.0 N (test code = MCHC) RED CELL DISTRIBUTION WIDTH 12.7 SD 11.5-14.5 N (test code = RDW) PLATELET COUNT (test code = 344 K/mm3 150-450 N PLT) MEAN PLATELET VOLUME (test code 8.30 fL 7.0-10.5 N = MPV) NEUTROPHIL % (test code = NT%) 52.6 % 40-76 N IMMATURE GRANULOCYTE % (test 0.2 % 0.0-5.0 N code = IG%) LYMPHOCYTE % (test code = LY%) 36.7 % 20.5-51.1 N MONOCYTE % (test code = MO%) 7.2 % 1.7-9.3 N EOSINOPHIL % (test code = EO%) 3.0 % 0.0-6.0 N BASOPHIL % (test code = BA%) 0.3 % 0.0-2.0 N NUCLEATED RBC % (test code = 0.0 /100WBC% 0.0-1.0 N NRBC%) NEUTROPHIL # (test code = NT#) 3.5 K/mm3 1.8-7.6 N IMMATURE GRANULOCYTE # (test 0.01 x10 3/uL 0.00-0.03 N code = IG#) LYMPHOCYTE # (test code = LY#) 2.4 K/mm3 0.6-3.2 N MONOCYTE # (test code = MO#) 0.5 K/mm3 0.3-1.1 N EOSINOPHIL # (test code = EO#) 0.2 K/mm3 0.0-0.4 N BASOPHIL # (test code = BA#) 0.0 K/mm3 0.0-0.1 N NUCLEATED RBC # (test code = 0.0 K/mm3 0.0-0.1 N NRBC#) MANUAL DIFF REQUIRED (test code NO DIFF/SCN CRITERIA = MDIFF) URINE [id number] 11:57:00 Test Item Value Reference Range Interpretation Comments URINE CULTURE (test No aerobic organisms code = 630-4) isolated [facility] METABOLIC PANEL (NA, K, CL, CO2, GLUCOSE, BUN, CREATININE, CA)2020-01-28 10:47:00 Test Item Value Reference Range Interpretation Comments NA (test code = 135 mmol/L 135-145 9367261817) K (test code = 4.0 mmol/L 3.5-5 0812583546) CL (test code = 104 mmol/L 98-108 3601279436) CO2 TOTAL (test code = 26 mmol/L 23-31 6323592690) AGAP (test code = 2-16 8421684290) BUN (test code = 7 mg/dL 7-23 9126442699) GLUCOSE (test code = 128 mg/dL 70-110 H 4084598044) CREATININE (test code = 0.42 mg/dL 0.5-1.04 L 1113271976) CALCIUM (test code = 9.1 mg/dL 8.6-10.6 3046513793) eGFR Calculation mL/min/1.73m2 (Non-) (test code = 0020170663) eGFR Calculation mL/min/1.73m2 () (test code = 2982908138) SOLEDAD (test code = SOLEDAD) Association of Glomerular Filtration Rate (GFR) and Staging of Kidney Disease* + --+ --+ ------+| GFR (mL/min/1.73 m2) ?| With Kidney Damage ?| ?Without Kidney Damage+ --------+ --------+ +| ?>90 ?| ?Stage one ?| ? Normal ?+ ---+ ---+ -------+| ?60-89 ?| ?Stage two ?| ? Decreased GFR ? + --+ --+ ------+| ?30-59 ?| ?Stage three ?| ? Stage three ? + --+ --+ ------+| ?15-29 ?| ?Stage four ? | ? Stage four ?+ ---+ ---+ -------+| ?<15 (or dialysis) ? ?| ?Stage five ? | ? Stage five ?+ ---+ ---+ -------+ *Each stage assumes the associated GFR level has been in effect for at least three months. ?Stages 1 to 5, with or without kidney disease, indicate chronic kidney disease. Notes: Determination of stages one and two (with eGFR >59mL/min/1.73 m2) requires estimation of kidney damage for at least three months as defined by structural or functional abnormalities of the kidney, manifested by either:Pathological abnormalities or Markers of kidney damage (including abnormalities in the composition of the blood or urine or abnormalities in imaging tests). Lab Interpretation Abnormal (test code = 88554-2) [facility] WITH [id number] 10:28:00 Test Item Value Reference Range Interpretation Comments WBC (test code = See_Comment H [Automated 4158-2) message] The system which generated this result transmit sherry reference range : 4.30 - 11.10 10*3/?L. The reference range was not used to interpret this result as normal/abnormal . RBC (test code = See_Comment L [Automated 259-8) message] The system which generated this result transmit sherry reference range : 3.93 - 5.25 10*6/?L. The reference range was not used to interpret this result as normal/abnormal . HGB (test code = 11.6 g/dL 11.6-15 718-7) HCT (test code = 34.9 % 35.7-45.2 L 4544-3) MCV (test code = 90.9 fL 80.6-95.5 787-2) MCH (test code = 30.2 pg 25.9-32.8 785-6) MCHC (test code = 33.2 g/dL 31.6-35.1 786-4) RDW-SD (test code = 40.6 fL 39-49.9 75457-0) RDW-CV (test code = 12.2 % 12-15.5 788-0) PLT (test code = See_Comment [Automated 777-3) message] The system which generated this result transmit sherry reference range : 166 - 358 10*3/ ?L. The reference range was not u sed to interpret th is result as normal/abnormal . MPV (test code = 8.8 fL 9.5-12.9 L 40997-7) NRBC/100 WBC (test See_Comment [Automat ed code = 6571201390) message] The system which generated this result transmit sherry reference range : 0.0 - 10.0 /100 WBCs. The reference range was not used to interpret this result as normal/abnormal . NRBC x10^3 (test code <0.01 See_Comment [Auto mated = 9554280521) message] The system which generated this result transmit sherry reference range : 10*3/?L. The reference range was not used to interpret this result as normal/abnormal . GRAN MAT (NEUT) % 84.9 % (test code = 770-8) IMM GRAN % (test code 0.40 % = 3372739282) LYMPH % (test code = 10.7 % 736-9) MONO % (test code = 3.7 % 5905-5) EOS % (test code = 0.1 % 713-8) BASO % (test code = 0.2 % 706-2) GRAN MAT x10^3(ANC) 10.00 10*3/uL 1.88-7.09 H (test code = 5084368850) IMM GRAN x10^3 (test 0.05 10*3/uL 0-0.06 code = 1662565782) LYMPH x10^3 (test code 1.26 10*3/uL 1.32-3.29 L = 731-0) MONO x10^3 (test code 0.43 10*3/uL 0.33-0.92 = 742-7) EOS x10^3 (test code = <0.03 0.03-0.39 L 711-2) BASO x10^3 (test code <0.03 0.01-0.07 = 704-7) Lab Interpretation Abnormal (test code = 00095-2) [facility] LUMBAR SPINE 1 [id number] 20:33:47 Lateral intraoperative radiographs of the lumbar spine was obtained. ?Themost inferior fully formeddisc is presumed L5-S1. On the second lateral intraoperative radiograph, superior localizinginstrument tips are identified L2- L3 level. Inferior localizing instrumenttip is identified at L5-S1 level.EXA MINATION: XR LUMBAR SPINE 1 CLINICAL HISTORY: Intraoperative COMPARISON: ?None [facility], Radiant Results Inft User - 01/27/2020 3:34 PM CDTEXAMINATION: XR LUMBAR SPINE 1 VWCLINICAL HISTORY: IntraoperativeCOMPARISON: NoneIMPRESSIONLateral intraoperative radiographs of the lumbar spine was obtained. Themost inferior fully formed disc is presumed L5-S1.On the second lateral intraoperative radiograph, superior localizinginstrument tips are identified L2-L3 level. Inferior localizing instrumenttip is identified at L5-S1 level.[facility] LUMBAR SPINE 1 [id number] 19:58:40 Single lateral intraoperative radiograph of the lumbar spine was obtained. The most inferior fully formed disc is presumed L5-S1. The superior localizing instrument tip is posterior to the L1 spinousprocess at the level of the L2 vertebral body. The inferior localizinginstrument tip is at the level of the L5 vertebral body.EXAMINATION: XR LUMBAR SPINE 1 CLINICAL HISTORY: Intraoperative COMPARISON: ?None [facility], Radiant Results Inft User - 01/27/2020 2:59 PM CDTEXAMINATION: XR LUMBAR SPINE 1 VWCLINICAL HISTORY: IntraoperativeCOMPARISON: NoneIMPRESSIONSingle lateral intraoperative radiograph of the lumbar spine was obtained. The most inferior fully formed disc is presumed L5-S1.The superior localizing instrument tip is posterior to the L1 spinousprocess at the level of the L2 vertebral body. The inferior localizinginstrument tip is at the level of the L5 vertebral body.[facility] CenterPROTHROMBIN TIME / [id number] 13:21:00 Test Item Value Reference Range Interpretation Comments PROTIME PATIENT (test See_Comment [Auto mated message] code = 5964-2) The system [facility] generated this result transmitted ref erence range: 10.1 - 1 2.6 Seconds. The re ference range was not u sed to interpret this result as normal/abnor mal. INR (test code = 6301-6) Nor mal INR <1.1; Warfarin Therap eutic range 2.0 to 3. 0 or 2.5 to 3.5, dep ending upon the indica tions. Lab Interpretation (test Normal code = 49847-5) [facility] CenteraPTT2020-07-09 13:21:00 Test Item Value Reference Range Interpretation Comments APTT Patient (test code See_Comment H [Au tomated message] = 3173-2) The system [employer] generated this result transmitted ref erence range: 26 - 36 Seconds. The reference range was not used to int erpret this result as normal/abnormal . Lab Interpretation (test Abnormal code = 03794-7) [facility] CenterType and Screen - ONCE [id number] 13:15:10 Test Item Value Reference Range Interpretation Comments ABO & RH (test code O POSITIVE Performe d at [facility] = 20) Laboratory Serv [facility] s [address]Hice Free: [phone] A No. [id number] IAT (test code = Negative Performed a t [facility] 1185) Laboratory Serv [facility] s [address]Mqkm Free: [phone] A No. [id number] [facility] CenterBAS[facility] METABOLIC PANEL (NA, K, CL, CO2, GLUCOSE, BUN, CREATININE, CA)2020-01-27 10:53:00 Test Item Value Reference Range Interpretation Comments NA (test code = 138 mmol/L 135-145 2063537402) K (test code = 3.7 mmol/L 3.5-5 1833476557) CL (test code = 105 mmol/L 98-108 3014587571) CO2 TOTAL (test code = 26 mmol/L 23-31 9205991635) AGAP (test code = 2-16 5454837350) BUN (test code = 13 mg/dL 7-23 4658636068) GLUCOSE (test code = 98 mg/dL 70-110 0691949513) CREATININE (test code 0.51 mg/dL 0.5-1.04 = 0085227480) CALCIUM (test code = 9.1 mg/dL 8.6-10.6 4145803356) eGFR Calculation mL/min/1.73m2 (Non-) (test code = 6767107692) eGFR Calculation mL/min/1.73m2 () (test code = 0946504980) SOLEDAD (test code = SOLEDAD) Association of Glomerular Filtration Rate (GFR) and Staging of Kidney Disease* + -+ + ---+| GFR (mL/min/1.73 m2) ?| With Kidney Damage ?| ?Without Kidney Damage+ -------+ ------+ ---------+| ?>90 ?| ?Stage one ?| ? Normal ?+ --+ -+ ----+| ?60-89 ?| ?Stage two ?| ? Decreased GFR ? + -+ + ---+| ?30-59 ?| ?Stage three ?| ? Stage three ? + -+ + ---+| ?15-29 ?| ?Stage four ? | ? Stage four ?+ --+ -+ ----+| ?<15 (or dialysis) ? ?| ?Stage five ? | ? Stage five ?+ --+ -+ ----+ *Each stage assumes the associated GFR level has been in effect for at least three months. ?Stages 1 to 5, with or without kidney disease, indicate chronic kidney disease. Notes: Determination of stages one and two (with eGFR >59mL/min/1.73 m2) requires estimation of kidney damage for at least three months as defined by structural or functional abnormalities of the kidney, manifested by either:Pathological abnormalities or Markers of kidney damage (including abnormalities in the composition of the blood or urine or abnormalities in imaging tests). [facility] WITH [id number] 10:32:00 Test Item Value Reference Range Interpretation Comments WBC (test code = See_Comment [Automated 4732-2) message] The sy stem which generated this result transmitted reference range : 4.30 - 11.10 10*3/?L. The reference range was not used to interpret this result as normal/abnormal . RBC (test code = See_Comment [Automated 789-8) message] The sy stem which generated this result transmitted reference range : 3.93 - 5.25 10*6/?L. The reference range was not used to interpret this result as normal/abnormal . HGB (test code = 12.5 g/dL 11.6-15 718-7) HCT (test code = 37.1 % 35.7-45.2 4544-3) MCV (test code = 89.6 fL 80.6-95.5 787-2) MCH (test code = 30.2 pg 25.9-32.8 785-6) MCHC (test code = 33.7 g/dL 31.6-35.1 786-4) RDW-SD (test code = 39.8 fL 39-49.9 48707-6) RDW-CV (test code = 12.2 % 12-15.5 788-0) PLT (test code = See_Comment [Automated 777-3) message] The sy stem which generated this result transmitted reference range : 166 - 358 10*3/ ?L. The reference r john was not used to interpret this result as normal/abnormal . MPV (test code = 8.5 fL 9.5-12.9 L 83108-7) NRBC/100 WBC (test See_Comment [Automat ed code = 0146125530) message] The system which generated this result transmitted reference range : 0.0 - 10.0 /100 WBCs. The refer ence range was not u sed to interpret th is result as normal/abnormal . NRBC x10^3 (test code <0.01 See_Comment [Auto mated = 7968128652) message] The s ystem which generated this result transmitted reference range : 10*3/?L. The reference range was not used to interpret this result as normal/abnormal . GRAN MAT (NEUT) % 44.4 % (test code = 770-8) IMM GRAN % (test code 0.30 % = 7132760844) LYMPH % (test code = 42.7 % 736-9) MONO % (test code = 7.1 % 5905-5) EOS % (test code = 4.9 % 713-8) BASO % (test code = 0.6 % 706-2) GRAN MAT x10^3(ANC) 2.81 10*3/uL 1.88-7.09 (test code = 6973774275) IMM GRAN x10^3 (test <0.03 0-0.06 code = 9679125185) LYMPH x10^3 (test code 2.71 10*3/uL 1.32-3.29 = 731-0) MONO x10^3 (test code 0.45 10*3/uL 0.33-0.92 = 742-7) EOS x10^3 (test code = 0.31 10*3/uL 0.03-0.39 711-2) BASO x10^3 (test code 0.04 10*3/uL 0.01-0.07 = 704-7) Lab Interpretation Abnormal (test code = 42328-7) [facility] METABOLIC PANEL (NA, K, CL, CO2, GLUCOSE, BUN, CREATININE, CA)2020-01-26 11:01:00 Test Item Value Reference Range Interpretation Comments NA (test code = 135 mmol/L 135-145 9623116732) K (test code = 4.3 mmol/L 3.5-5 Slight 5720962453) hemolysis CL (test code = 105 mmol/L 98-108 4301380544) CO2 TOTAL (test code 22 mmol/L 23-31 L = 2519956441) AGAP (test code = 2-16 9301020174) BUN (test code = 17 mg/dL 7-23 Slight 1759203812) hemolysis GLUCOSE (test code = 103 mg/dL 70-110 3864218254) CREATININE (test code 0.59 mg/dL 0.5-1.04 = 8279343533) CALCIUM (test code = 9.3 mg/dL 8.6-10.6 7321486329) eGFR Calculation mL/min/1.73m2 (Non-) (test code = 9263471980) eGFR Calculation mL/min/1.73m2 () (test code = 1501889351) SOLEDAD (test code = SOLEDAD) Association of Glomerular Filtration Rate (GFR) and Staging of Kidney Disease* + -----+ --------+ +| GFR (mL/min/1.73 m2) ?| With Kidney Damage ?| ?Without Kidney Damage+ +------- +---- --+| ?>90 ?| ?Stage one ?| ? Normal ?+ ------+ ---------+--------- +| ?60-89 ?| ?Stage two ?| ? Decreased GFR ? + -----+ --------+ +| ?30-59 ?| ?Stage three ?| ? Stage three ? + -----+ --------+ +| ?15-29 ?| ?Stage four ? | ? Stage four ?+ ------+ ---------+--------- +| ?<15 (or dialysis) ? ?| ?Stage five ? | ? Stage five ?+ ------+ ---------+--------- + *Each stage assumes the associated GFR level has been in effect for at least three months. ?Stages 1 to 5, with or without kidney disease, indicate chronic kidney disease. Notes: Determination of stages one and two (with eGFR >59mL/min/1.73 m2) requires estimation of kidney damage for at least three months as defined by structural or functional abnormalities of the kidney, manifested by either:Pathological abnormalities or Markers of kidney damage (including abnormalities in the composition of the blood or urine or abnormalities in imaging tests). Lab Interpretation Abnormal (test code = 74493-1) [facility] WITH [id number] 10:18:00 Test Item Value Reference Range Interpretation Comments WBC (test code = See_Comment [Automated 3723-2) message] The sy stem which generated this result transmitted reference range : 4.30 - 11.10 10*3/?L. The reference range was not used to interpret this result as normal/abnormal . RBC (test code = See_Comment [Automated 836-8) message] The sy stem which generated this result transmitted reference range : 3.93 - 5.25 10*6/?L. The reference range was not used to interpret this result as normal/abnormal . HGB (test code = 12.8 g/dL 11.6-15 718-7) HCT (test code = 38.0 % 35.7-45.2 4544-3) MCV (test code = 90.7 fL 80.6-95.5 787-2) MCH (test code = 30.5 pg 25.9-32.8 785-6) MCHC (test code = 33.7 g/dL 31.6-35.1 786-4) RDW-SD (test code = 40.5 fL 39-49.9 58848-7) RDW-CV (test code = 12.2 % 12-15.5 788-0) PLT (test code = See_Comment H [Automated 777-3) message] The sy stem which generated this result transmitted reference range : 166 - 358 10*3/ ?L. The reference r john was not used to interpret this result as normal/abnormal . MPV (test code = 9.1 fL 9.5-12.9 L 76590-1) NRBC/100 WBC (test See_Comment [Automat ed code = 5105058804) message] The system which generated this result transmitted reference range : 0.0 - 10.0 /100 WBCs. The refer ence range was not u sed to interpret th is result as normal/abnormal . NRBC x10^3 (test code <0.01 See_Comment [Auto mated = 3029820241) message] The s ystem which generated this result transmitted reference range : 10*3/?L. The reference range was not used to interpret this result as normal/abnormal . GRAN MAT (NEUT) % 44.6 % (test code = 770-8) IMM GRAN % (test code 0.10 % = 2640214031) LYMPH % (test code = 42.5 % 736-9) MONO % (test code = 7.2 % 5905-5) EOS % (test code = 5.2 % 713-8) BASO % (test code = 0.4 % 706-2) GRAN MAT x10^3(ANC) 3.01 10*3/uL 1.88-7.09 (test code = 7902971033) IMM GRAN x10^3 (test <0.03 0-0.06 code = 8290553847) LYMPH x10^3 (test code 2.88 10*3/uL 1.32-3.29 = 731-0) MONO x10^3 (test code 0.49 10*3/uL 0.33-0.92 = 742-7) EOS x10^3 (test code = 0.35 10*3/uL 0.03-0.39 711-2) BASO x10^3 (test code 0.03 10*3/uL 0.01-0.07 = 704-7) Lab Interpretation Abnormal (test code = 31282-0) [facility] WITH [id number] 10:55:00 Test Item Value Reference Range Interpretation Comments WBC (test code = See_Comment [Automated 6690-2) message] The sy stem which generated this result transmitted reference range : 4.30 - 11.10 10*3/?L. The reference range was not used to interpret this result as normal/abnormal . RBC (test code = See_Comment [Automated 789-8) message] The sy stem which generated this result transmitted reference range : 3.93 - 5.25 10*6/?L. The reference range was not used to interpret this result as normal/abnormal . HGB (test code = 12.3 g/dL 11.6-15 718-7) HCT (test code = 37.1 % 35.7-45.2 4544-3) MCV (test code = 90.9 fL 80.6-95.5 787-2) MCH (test code = 30.1 pg 25.9-32.8 785-6) MCHC (test code = 33.2 g/dL 31.6-35.1 786-4) RDW-SD (test code = 41.4 fL 39-49.9 48381-2) RDW-CV (test code = 12.5 % 12-15.5 788-0) PLT (test code = See_Comment [Automated 777-3) message] The sy stem which generated this result transmitted reference range : 166 - 358 10*3/ ?L. The reference r john was not used to interpret this result as normal/abnormal . MPV (test code = 9.2 fL 9.5-12.9 L 15454-6) NRBC/100 WBC (test See_Comment [Automat ed code = 1991851514) message] The system which generated this result transmitted reference range : 0.0 - 10.0 /100 WBCs. The refer ence range was not u sed to interpret th is result as normal/abnormal . NRBC x10^3 (test code <0.01 See_Comment [Auto mated = 2927373629) message] The s ysteRunMyProcess which generated this result transmitted reference range : 10*3/?L. The reference range was not used to interpret this result as normal/abnormal . GRAN MAT (NEUT) % 31.3 % (test code = 770-8) IMM GRAN % (test code 0.20 % = 3572410359) LYMPH % (test code = 53.1 % 736-9) MONO % (test code = 8.6 % 5905-5) EOS % (test code = 6.3 % 713-8) BASO % (test code = 0.5 % 706-2) GRAN MAT x10^3(ANC) 1.79 10*3/uL 1.88-7.09 L (test code = 9508593403) IMM GRAN x10^3 (test <0.03 0-0.06 code = 7782760732) LYMPH x10^3 (test code 3.04 10*3/uL 1.32-3.29 = 731-0) MONO x10^3 (test code 0.49 10*3/uL 0.33-0.92 = 742-7) EOS x10^3 (test code = 0.36 10*3/uL 0.03-0.39 711-2) BASO x10^3 (test code 0.03 10*3/uL 0.01-0.07 = 704-7) REACT LYMPHS (test Moderate code = 1149538269) Lab Interpretation Abnormal (test code = 38930-5) [facility] METABOLIC PANEL (NA, K, CL, CO2, GLUCOSE, BUN, CREATININE, CA)2020-01-25 10:38:00 Test Item Value Reference Range Interpretation Comments NA (test code = 139 mmol/L 135-145 1162424298) K (test code = 4.0 mmol/L 3.5-5 3704409926) CL (test code = 105 mmol/L 98-108 8071309524) CO2 TOTAL (test code = 26 mmol/L 23-31 1675685640) AGAP (test code = 2-16 3335830141) BUN (test code = 12 mg/dL 7-23 7955089683) GLUCOSE (test code = 99 mg/dL 70-110 0703192691) CREATININE (test code = 0.47 mg/dL 0.5-1.04 L 9233071907) CALCIUM (test code = 9.2 mg/dL 8.6-10.6 8597345243) eGFR Calculation mL/min/1.73m2 (Non-) (test code = 8997446233) eGFR Calculation mL/min/1.73m2 () (test code = 7638099258) SOLEDAD (test code = SOLEDAD) Association of Glomerular Filtration Rate (GFR) and Staging of Kidney Disease* + --+ --+ ------+| GFR (mL/min/1.73 m2) ?| With Kidney Damage ?| ?Without Kidney Damage+ --------+ --------+ +| ?>90 ?| ?Stage one ?| ? Normal ?+ ---+ ---+ -------+| ?60-89 ?| ?Stage two ?| ? Decreased GFR ? + --+ --+ ------+| ?30-59 ?| ?Stage three ?| ? Stage three ? + --+ --+ ------+| ?15-29 ?| ?Stage four ? | ? Stage four ?+ ---+ ---+ -------+| ?<15 (or dialysis) ? ?| ?Stage five ? | ? Stage five ?+ ---+ ---+ -------+ *Each stage assumes the associated GFR level has been in effect for at least three months. ?Stages 1 to 5, with or without kidney disease, indicate chronic kidney disease. Notes: Determination of stages one and two (with eGFR >59mL/min/1.73 m2) requires estimation of kidney damage for at least three months as defined by structural or functional abnormalities of the kidney, manifested by either:Pathological abnormalities or Markers of kidney damage (including abnormalities in the composition of the blood or urine or abnormalities in imaging tests). Lab Interpretation Abnormal (test code = 11558-2) [facility] METABOLIC PANEL (NA, K, CL, CO2, GLUCOSE, BUN, CREATININE, CA)2020-01-25 00:52:00 Test Item Value Reference Range Interpretation Comments NA (test code = 138 mmol/L 135-145 1063873122) K (test code = 5.0 mmol/L 3.5-5 Slight hemoly sis 0119036325) CL (test code = 107 mmol/L 98-108 4058873801) CO2 TOTAL (test 24 mmol/L 23-31 code = 8508917487) AGAP (test code = 2-16 3610817591) BUN (test code = 8 mg/dL 7-23 Slight hemo lysis 5544077449) GLUCOSE (test code 107 mg/dL 70-110 = 1260628584) CREATININE (test 0.53 mg/dL 0.5-1.04 code = 0355652502) CALCIUM (test code 9.3 mg/dL 8.6-10.6 = 3538335422) eGFR Calculation mL/min/1.73m2 (Non-) (test code = 1677453283) eGFR Calculation mL/min/1.73m2 () (test code = 0965373963) SOLEDAD (test code = Association of SOLEDAD) Glomerular Filtration Rate (GFR) and Staging of Kidney Disease* + ----+ ------+ +| GFR (mL/min/1.73 m2) ?| With Kidney Damage ?| ?Without Kidney Damage+ +--------- +------- +| ?>90 ?| ?Stage one ?| ? Normal ?+ -----+ -------+ +| ?60-89 ?| ?Stage two ?| ? Decreased GFR ? + ----+ ------+ +| ?30-59 ?| ?Stage three ?| ? Stage three ? + ----+ ------+ +| ?15-29 ?| ?Stage four ? | ? Stage four ?+ -----+ -------+ +| ?<15 (or dialysis) ? ?| ?Stage five ? | ? Stage five ?+ -----+ -------+ + *Each stage assumes the associated GFR level has been in effect for at least three months. ?Stages 1 to 5, with or without kidney disease, indicate chronic kidney disease. Notes: Determination of stages one and two (with eGFR >59mL/min/1.73 m2) requires estimation of kidney damage for at least three months as defined by structural or functional abnormalities of the kidney, manifested by either:Pathological abnormalities or Markers of kidney damage (including abnormalities in the composition of the blood or urine or abnormalities in imaging tests). [facility] / [id number] 00:41:00 Test Item Value Reference Range Interpretation Comments PROTIME PATIENT (test See_Comment [Auto mated message] code = 5964-2) The system wh ich generated this result transmitted ref erence range: 10.1 - 1 2.6 Seconds. The re ference range was not u sed to interpret this result as normal/abnor mal. INR (test code = 6301-6) Nor mal INR <1.1; Warfarin Therap eutic range 2.0 to 3. 0 or 2.5 to 3.5, dep ending upon the indica tions. Lab Interpretation (test Normal code = 94928-1) [facility] 00:[facility]00 Test Item Value Reference Range Interpretation Comments APTT Patient (test code See_Comment H [Au tomated message] = 3173-2) The system whic h generated this result transmitted ref erence range: 26 - 36 Seconds. The reference range was not used to int erpret this result as normal/abnormal . Lab Interpretation (test Abnormal code = 61244-8) [facility]EN2020-[facility]07 00:41:00 Test Item Value Reference Range Interpretation Comments Fibrinogen (test code = 2332085025) 488 mg/dL 167-453 H Lab Interpretation (test code = Abnormal 17811-9) [facility] CenterCBC WITH [id number] 00:37:00 Test Item Value Reference Range Interpretation Comments WBC (test code = See_Comment [Automated 4072-2) message] The sy stem which generated this result transmitted reference range : 4.30 - 11.10 10*3/?L. The reference range was not used to interpret this result as normal/abnormal . RBC (test code = See_Comment [Automated 659-8) message] The sy stem which generated this result transmitted reference range : 3.93 - 5.25 10*6/?L. The reference range was not used to interpret this result as normal/abnormal . HGB (test code = 13.4 g/dL 11.6-15 718-7) HCT (test code = 40.7 % 35.7-45.2 4544-3) MCV (test code = 90.0 fL 80.6-95.5 787-2) MCH (test code = 29.6 pg 25.9-32.8 785-6) MCHC (test code = 32.9 g/dL 31.6-35.1 786-4) RDW-SD (test code = 41.0 fL 39-49.9 27954-6) RDW-CV (test code = 12.4 % 12-15.5 788-0) PLT (test code = See_Comment H [Automated 777-3) message] The sy stem which generated this result transmitted reference range : 166 - 358 10*3/ ?L. The reference r john was not used to interpret this result as normal/abnormal . MPV (test code = 8.6 fL 9.5-12.9 L 41174-1) NRBC/100 WBC (test See_Comment [Automat ed code = 2287476826) message] The system which generated this result transmitted reference range : 0.0 - 10.0 /100 WBCs. The refer ence range was not u sed to interpret th is result as normal/abnormal . NRBC x10^3 (test code <0.01 See_Comment [Auto mated = 9355115502) message] The s ystem which generated this result transmitted reference range : 10*3/?L. The reference range was not used to interpret this result as normal/abnormal . GRAN MAT (NEUT) % 44.8 % (test code = 770-8) IMM GRAN % (test code 0.20 % = 2202126012) LYMPH % (test code = 41.3 % 736-9) MONO % (test code = 8.3 % 5905-5) EOS % (test code = 4.8 % 713-8) BASO % (test code = 0.6 % 706-2) GRAN MAT x10^3(ANC) 2.91 10*3/uL 1.88-7.09 (test code = 9255439294) IMM GRAN x10^3 (test <0.03 0-0.06 code = 1556120737) LYMPH x10^3 (test code 2.68 10*3/uL 1.32-3.29 = 731-0) MONO x10^3 (test code 0.54 10*3/uL 0.33-0.92 = 742-7) EOS x10^3 (test code = 0.31 10*3/uL 0.03-0.39 711-2) BASO x10^3 (test code 0.04 10*3/uL 0.01-0.07 = 704-7) Lab Interpretation Abnormal (test code = 50999-1) [facility] CenterMR [facility] W WO [id number] 13:56:48 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 Narrowing of subarticular zones at L2-L3 and L5-S1 with potentialimpingement on the descending L3 and S1 nerve roots.EXAM: MR LUMBAR SPINE W WO CONTRAST HISTORY: Back pain, cauda equina syndr ome suspected TECHNIQUE: MRI of the lumbar spine was performed on 1.5 Yesenia withoutintravenous contrast. COMPARISON: None. FINDINGS: The vertebral bodies are normal in height and alignment. Mild heterogenicity of the background bone marrow signal likely due topatchy T1/T2 hyperintensities likely reflective of fatty infiltration. Noabnormal enhancement. Conus medullaris terminates at L1 and is normal. Cauda equina nerve rootsare unremarkable. No abnormal intraspinal enhancement. Disc desiccation isnoted at L2-S1. At L1-L2, no high-grade spinal canal stenosis or significant neuralforaminal narrowing. At L2-L3, there is diffuse disc bulge with left paracentral discprotrusion, mild facet arthrosis a nd ligamentum flavum thickening result inmoderate spinal canal stenosis and mild left neural foraminal narrowing.There is narrowing of subarticular zones with potential impingement on thedescending L3 nerve roots. At L3-L4, mild diffuse disc bulge with mild ligamentum flavum thickening.No high-grade spinal canal stenosis or significant neural foraminalnarrowing. At L4-L5, mild diffuse disc bulge with mild facet arthrosis and ligamentumflavum thickening result in mild bilateral neural foraminal narrowing andmild spinal canal stenosis. Small annular fissure noted. At L5-S1, there is a broad-based central disc protrusion with ligamentumflavum thickening result in moderate spinal canal stenosis and lucas barticularzones narrowing with potential impingement on the descending S1 nerveroots. The paraspinalsoft tissues are unremarkable. [facility], Radiant Results Inft User - 01/24/2020 8:57 AM CDTEXAM: MR LUMBAR SPINE W WO CONTRASTHISTORY: Back pain, cauda equina syndrome suspected TECHNIQUE: MRI of the lumbar spine was performed on 1.5 [place] withoutintravenous contrast.COMPARISON: None.FINDINGS: The vertebral bodies are normal in height and alignment.Mild heterogenicity of the background bone marrow signal likely due topatchy T1/T2 hyperintensities likely reflective of fatty infiltration. Noabnormal enhan cement.Conus medullaris terminates at L1 and is normal. Cauda equina nerve rootsare unremarkable. Noabnormal intraspinal enhancement.Disc desiccation is noted at L2-S1.At L1-L2, no high-grade spinal canal stenosis or significant neuralforaminal narrowing.At L2-L3, there is diffuse disc bulge with left paracentral discprotrusion, mild facet arthrosis and ligamentum flavum thickening result inmoderatespinal canal stenosis and mild left neural foraminal narrowing.There is narrowing of subarticular zones with potential impingement on thedescending L3 nerve roots. At L3-L4, mild diffuse disc bulge with mild ligamentum flavum thickening.No high-grade spinal canal stenosis or significant neural foraminalnarrowing.At L4-L5, mild diffuse disc bulge with mild facet arthrosis and ligamentumflavum thickening result in mild bilateral neural foraminal narrowing andmild spinal canal stenosis. Small annular fissure noted.At L5-S1, there is a broad-based central disc protrusion with ligamentumflavum thickening result in moderate spinal canal stenosis and subarticularzones narrowing with potential impingementon the descending S1 nerveroots.The paraspinal soft tissues are unremarkable.IMPRESSIONSpondylosis an d spondyloarthropathy result in moderate spinal canalstenosis at L2-L3 and L5- S1, mild at L4-L5.Narrowing of subarticular zones at L2-L3 and L5-S1 with potentialimpingement on the descending L3 and S1 nerve roots.[facility] CenterCOVID-19 (ID NOW RAPID TESTING)2020-01-24 00:44:00 Test Item Value Reference Range Interpretation Comments SARS-CoV-2 Rapid ID NOW Not Detected Not Detected (test code = 41256-7) SOLEDAD (test code = SOLEDAD) ID NOW COVID-19 Assay is an isothermal nucleic acid amplification test intended for the qualitative detection of nucleic acid from SARS-CoV-2 viral RNA in nasopharyngeal (TICKER WIRER) specimens. It is used under Emergency Use Authorization (EUA) by FDA. The limit of detection (LOD) of the assay is 125 Genome Equivalents/mL. A positive result is indicative of the presence of SARS-CoV-2 RNA. ?Clinical correlation with patient history and other diagnostic information is necessary to determine patient infection status. A negative (Not Detected) result does not preclude SARS-CoV-2 infection. In patients with clinical symptoms and other tests that are consistent with SARS-CoV-2 infection, negative results should be treated as presumptive negative and a new specimen should be tested with alternative PCR molecular test. Invalid: Please collect a new specimen for repeat patient testing if clinically indicated. Lab Interpretation Normal (test code = 78237-4) [facility] METABOLIC PANEL (NA, K, CL, CO2, GLUCOSE, BUN, CREATININE, CA)2020-01-23 23:29:00 Test Item Value Reference Range Interpretation Comments NA (test code = 138 mmol/L 135-145 3888097160) K (test code = 4.3 mmol/L 3.5-5 0483360614) CL (test code = 108 mmol/L 98-108 7945119061) CO2 TOTAL (test code = 23 mmol/L 23-31 7960168507) AGAP (test code = 2-16 7858337929) BUN (test code = 8 mg/dL 7-23 0411807057) GLUCOSE (test code = 83 mg/dL 70-110 8019351094) CREATININE (test code = 0.44 mg/dL 0.5-1.04 L 1764115272) CALCIUM (test code = 9.6 mg/dL 8.6-10.6 2769804675) eGFR Calculation mL/min/1.73m2 (Non-) (test code = 1934679298) eGFR Calculation mL/min/1.73m2 () (test code = 9296662962) SOLEDAD (test code = SOLEDAD) Association of Glomerular Filtration Rate (GFR) and Staging of Kidney Disease* + --+ --+ ------+| GFR (mL/min/1.73 m2) ?| With Kidney Damage ?| ?Without Kidney Damage+ --------+ --------+ +| ?>90 ?| ?Stage one ?| ? Normal ?+ ---+ ---+ -------+| ?60-89 ?| ?Stage two ?| ? Decreased GFR ? + --+ --+ ------+| ?30-59 ?| ?Stage three ?| ? Stage three ? + --+ --+ ------+| ?15-29 ?| ?Stage four ? | ? Stage four ?+ ---+ ---+ -------+| ?<15 (or dialysis) ? ?| ?Stage five ? | ? Stage five ?+ ---+ ---+ -------+ *Each stage assumes the associated GFR level has been in effect for at least three months. ?Stages 1 to 5, with or without kidney disease, indicate chronic kidney disease. Notes: Determination of stages one and two (with eGFR >59mL/min/1.73 m2) requires estimation of kidney damage for at least three months as defined by structural or functional abnormalities of the kidney, manifested by either:Pathological abnormalities or Markers of kidney damage (including abnormalities in the composition of the blood or urine or abnormalities in imaging tests). Lab Interpretation Abnormal (test code = 88307-5) [facility] CenterURINALYSIS2020-07-05 23:25:00 Test Item Value Reference Range Interpretation Comments APPEARANCE (test code = Clear Clear 0709132409) COLOR (test code = Yellow Yellow 5244334010) PH (test code = 4.8-8.0 7479680487) SP GRAVITY (test code = 1.003-1.030 7783553022) GLU U QUAL (test code = Normal Normal 8475251226) BLOOD (test code = 1+ Negative A 7609221986) KETONES (test code = Negative Negative 9933188492) PROTEIN (test code = Negative Negative 2887-8) UROBILIN (test code = Normal Normal 6958694775) BILIRUBIN (test code = Negative Negative 9568674906) NITRITE (test code = Negative Negative 4911746483) LEUK IRAJ (test code = Negative Negative 8780194794) RBC/HPF (test code = See_Comment [Autom ated message] 0979637768) The system [employer] generated this result transmitted ref erence range: 0 - 3 HP F. The reference range was not used to int erpret this result as normal/abnormal . WBC/HPF (test code = See_Comment [Autom ated message] 8760745495) The system [employer] generated this result transmitted ref erence range: 0 - 5 HP F. The reference range was not used to int erpret this result as normal/abnormal . BACTERIA (test code = Negative Negative 4695269114) SQ EPITH (test code = See_Comment [Auto mated message] 0949998349) The system [employer] generated this result transmitted ref erence range: <=2 HPF. The reference range was not used to int erpret this result as normal/abnormal . Lab Interpretation (test Abnormal code = 84306-1) [facility] CenterXR Abdomen KUB 1 Hfey9332-63-08 18:15:18 Patient: KEKE HAYNES Date/Time03/15/2019 18:02 CDTReason [...] [place] Michael JackSigned (Electronic Signature): 03/15/2019 6:15 pmUrinalysis Sjkfgwgkijg5053-97-70 16:19:42 Test Item Value Reference Range Interpretation Comments UA WBC (test code = UA WBC) 0-5 /HPF 0-5 UA RBC (test code = UA RBC) 0-4 /HPF 0-4 UA Bacteria (test code = UA Negative /HPF Negative Bacteria) UA Squam Epithelial (test code 21-73 /LPF 0-20 A = UA Squam Epithelial) Urinalysis with Culture, if jplbadjfz9350-34-84 16:19:42 Test Item Value Reference Range Interpretation [...] = UA Micro Ind?) rule GL_SET_UA_MICRO _IND Aloqmsx4877-02-02 16:13:11 Test Item Value Reference Range Interpretation Comments Amylase Level (test code = 53 IntlUnit/L 25-115 Amylase Level) Comprehensive Metabolic Dpfuk8682-00-82 16:13:11 Test Item Value Reference Range Interpretation [...] = AST) 20 IntlUnit/L 15-37 Comprehensive Metabolic Prgwz0640-65-24 16:13:11 Test Item Value Reference Range Interpretation [...] >60 mL/min/1.73 m2 N AA) Comprehensive Metabolic Nhjfp5638-68-13 16:13:11 Test Item Value Reference Range Interpretation [...] >60 mL/min/1.73 m2 N eGFR Non-AA) Automated Awbvxpfcyzfw4872-88-74 16:12:15 Test Item Value Reference Range Interpretation Comments Neutro Auto (test code = Neutro Auto) 55.4 % N Lymph Auto (test code = Lymph Auto) 36.3 % N [place] Auto (test code = [place] Auto) 5.5 % N Eos, Auto (test code = Eos, Auto) 1.9 % N Basophil Auto (test code = Basophil 0.9 % N Auto) Neutro Absolute (test code = Neutro 4.9 x10 2.7-7.3 Absolute) Lymph Absolute (test code = Lymph 3.2 x10 0.8-3.5 Absolute) [place] Absolute (test code = [place] 0.5 x10 0.3-0.9 Absolute) Eos Absolute (test code = Eos 0.2 x10 0.0-0.3 Absolute) Baso Absolute (test code = Baso 0.1 x10 0.0-0.1 Absolute) Complete Blood Count with Ahhkmrqjvcik4791-05-61 16:12:14 Test Item Value Reference Range Interpretation [...] created by = Slide Review) GL_SET_SLIDE _REVIEW_A [facility] Comprehensive Metabolic Rpmir8796-53-41 14:21:14 Test Item Value Reference Range Interpretation [...] = AST) 22 IntlUnit/L 15-37 Comprehensive Metabolic Xrrla8151-30-94 14:21:14 Test Item Value Reference Range Interpretation [...] >60 mL/min/1.73 m2 N AA) Comprehensive Metabolic Deren3633-59-30 14:21:14 Test Item Value Reference Range Interpretation [...] m2 N eGFR Non-AA) Pro B Natriuretic Bodbvic3010-62-27 14:05:15 Test Item Value Reference Range Interpretation [...] f ailure likely Complete Blood Count with Pnchrcstklui0718-57-35 13:59:12 Test Item Value Reference Range Interpretation [...] = Slide Review) GL_SET_SLIDE _REVIEW_A UTO Automated Crzrwmwghfob2255-40-25 13:59:12 Test Item Value Reference Range Interpretation Comments Neutro Auto (test code = Neutro Auto) 68.5 % N Lymph Auto (test code = Lymph Auto) 24.5 % N [place] Auto (test code = [place] Auto) 5.6 % N Eos, Auto (test code = Eos, Auto) 1.0 % N Basophil Auto (test code = Basophil 0.4 % N Auto) Neutro Absolute (test code = Neutro 8.2 x10 2.7-7.3 H Absolute) Lymph Absolute (test code = Lymph 2.9 x10 0.8-3.5 Absolute) [place] Absolute (test code = [place] 0.7 x10 0.3-0.9 Absolute) Eos Absolute (test code = Eos 0.1 x10 0.0-0.3 Absolute) Baso Absolute (test code = Baso 0.0 x10 0.0-0.1 Absolute) XR Chest 2 Toefv7203-69-49 13:41:47Patient: KEKE HAYNES Date/Time02/24/201913:18 CDTReason for ExamShortness [...] (Electronic Signature): 02/24/2019 1:41 pmXR Chest 2 Famlh8602-56-23 10:31:38Patient: KEKE HAYNES Date/Time10/06/2018 10:23 CDTReason for [...] 09/22/2018 2:38 pmXR Ankle Complete 3+ Views Gehek2354-30-12 07:53:52Patient: KEKE HAYNES Date/Time09/04/2018 22:40 CSTReason for [...] 09/05/2018 7:53 amXR Foot Complete 3+ Views Clcs6268-08-68 07:53:39Patient: KEKE HAYNES Date/Time09/04/2018 22:40 CSTReason for [...] 09/05/2018 7:53 amCT Abdomen and Pelvis w/o Lbhjemtz2341-47-80 14:15:18Patient: KEKE HAYNES Date/Time07/09/2018 13:45 CSTReason for [...] MD Leary Craig ASigned (Electronic Signature): 07/09/2018 2:51biBWEKGZJTQC3258-88-49 18:24:00 Test Item Value Reference Range Interpretation [...] BACTERIA (test code = NEGATIVE NONE BACTERIA) [id number] 18:16:00 Test Item Value Reference Range Interpretation [...] glucose = GLUCOSE) normal <100 MG/ DL- [place] [employer] recommendation* * CALCIUM (test [...] GFR) mL/min/1.73m2 mL/min/1.73m2 is considered norm al. [id number] 18:16:00 Test Item Value Reference Range Interpretation Comments LIPASE (test code = LIPA) 95 U/L 23-300 [id number] 18:07:00 Test Item Value Reference Range Interpretation [...] 3.5 K/UL 1.2-7.2 = NEUT) OCCULT BLOOD, [id number] 06:35:00 Test Item Value Reference Range Interpretation Comments OCCULT BLOOD FECES (test code = NEGATIVE NEGATIVE OCCBLFEC) LOT# CRD (test code = LOT# CRD) 84742 EXP CRD (test code = EXP CRD) 10- LOT# DVL (test code = LOT# DVL) 00648 EXP DVL (test code = EXP DVL) 7- INT QC (test code = INT QC) PASSED [id number] 00:14:00 Test Item Value Reference Range Interpretation [...] glucose = GLUCOSE) normal <100 MG/ DL- [place] [employer] recommendation* * CALCIUM (test [...] GFR) mL/min/1.73m2 mL/min/1.73m2 is considered norm al. [id number] 00:14:00 Test Item Value Reference Range Interpretation Comments LIPASE (test code = LIPA) 134 U/L 23-300 ABDOMEN 2 [id number] 21:18:[address] [id number] IMAGING REPORTPatient Name: Amaris HAYNES of Service: [id number]: 52 Sex: F Order #: [id number] Room: ERB: 1965 X-Ray Number: [id number] Record Number: [id number] Hospital Number: [id number] Physician: YANNA GUTIERREZOrdering Physician: Mallika MAY.History: Abdomen pain.Technique: 3 supine and upright abdominal projections were obtained andreviewed.Findings:There is no s pecific acute appearing abdominal abnormality.There is no evidence to suggest obstruction or free air.The osseous structures appear intact. There is rotatory dextroscoliosis ofthe lumbar spine.Impression:No specific acute appearing abdominal abnormalities.Electronically Signed By: Hao Cole M.D., 04/04/2018 9:16 PMLegally authenticated by CLARA Talley 2018-04-04 21:16:02 [id number] 17:07:00 Test Item Value Reference Range Interpretation [...] (test code 5.6 K/UL 1.2-7.2 = NEUT) [id number] 17:06:00 Test Item Value Reference Range Interpretation [...] (test code = UAMICRO) NO CT ABDOMEN/PELVIS NAHJ1891-11-61 16:28:[address] [id number] IMAGING REPORTPatient Name: Amaris HAYNES of Service: [id number]: 52 Sex: F Order #: [id number] Room: [facility]: 1965 X-Ray Number: [id number] Record Number: [id number] Hospital Number: [id number] Physician: YANNA GUTIERREZOrdering Physician: DANETTE CLARK ABDOMEN/PELVIS WITH 04/01/2018 3:52 [...] 4:25 PMLegally authenticated by GEORGIA WISEMAN 2018-04-01 16:25:[id number] 14:29:00 Test Item Value Reference Range Interpretation Comments BLOOD TYPE (test code = TYPE) O Rh Positive ANTIBODY SCREEN (test code = NEGATIVE NEGATIVE SCREEN) PROTHROMBIN TIME WITH [id number] 14:13:00 Test Item Value Reference Range Interpretation Comments PROTHROMBIN TIME 12.5 SECONDS 12.0-14.6 INR Usual R john = 2 (test code = PT) to 3 for pr evention of deep vein thrombosis (DVT ) INR (test code = INR) 0.9 [id number] 14:13:00 Test Item Value Reference Range Interpretation Comments PTT (test code = 37.8 SECONDS 24.4-36.3 H HEPARIN THE RAPEUTIC PTT) RANGE 57-92 SEC ONDS [id number] 14:00:00 Test Item Value Reference Range Interpretation [...] glucose = GLUCOSE) normal <100 MG/ DL- [employer] recommendation* * CALCIUM (test [...] GFR) mL/min/1.73m2 mL/min/1.73m2 is considered norm al. [id number] 14:00:00 Test Item Value Reference Range Interpretation Comments LIPASE (test code = LIPA) 40 U/L 23-300 [id number] 13:51:00 Test Item Value Reference Range Interpretation [...] code 8.8 K/UL 1.2-7.2 H = NEUT) [id number] 13:22:00 Test Item Value Reference Range Interpretation [...] (test code = UAMICRO) NO SPINE LUMBAR [id number] 13:32:[address] [id number] IMAGING REPORTPatient Name: Amaris HAYNES of Service: [id number]: [id number] Sex: F Order #: [id number] [facility] 1965 [facility]-Ray Number: [id number] Record Number: [id number] Hospital Number: [id number] Physician: MICHELLE YEOrdering Physician: LAURENCE HONG SPINE [...] 1:29 PMLegally authenticated by JENNIFER Daniels 2017-10-16 13:29:[id number] 12:33:00 Test Item Value Reference Range Interpretation [...] BACTERIA (test code = NEGATIVE NONE BACTERIA) [id number] 06:46:50CHEST 2 VIEWREASON FOR STUDY: [id number]:The heart and mediastinum are within normal limits. Minor linearscarring or atelectasis is noted involving the right infrahilar region.Lungs appear slightly hyperinflated. Bony structures appear intact. . No other significant findings. IMPRESSION: Minor linear scarring or atelectasis involving the right infrahilarregion. Chest is otherwise clear.
[2021-08-17 20:07] LABS: Urine Blood 3+ (Negative); Urine Glucose Negative (Negative); Urine Protein 1+ (Negative); Urine Specific Gravity 1.025 (1.005-1.030)
[2021-08-17] MEDS ORDERED: FENTANYL CITR 100 MCG/2 ML ONE (21:05)
[2021-08-17 21:28] LABS: Absolute Lymphocytes (CBC) 3.1 K/uL (0.7-4.9); Hematocrit 42.1 % (36.0-45.0); MPV 6.1 fL (7.6-11.3); RBC Red Blood Cell Count 4.69 M/uL (3.86-4.86)
[2021-08-17 21:41] LABS: ALT/SGPT 51 U/L (12-78); AST/SGOT 32 U/L (15-37); Albumin 3.8 g/dL (3.4-5.0); Alkaline Phosphatase 89 U/L (45-117); BUN Blood Urea Nitrogen 11 mg/dL (7-18); Bicarbonate 30 mmol/L (21-32); Bilirubin Direct < 0.1 mg/dL (0-0.2); Bilirubin Total 0.5 mg/dL (0.2-1.0); Glucose Level 87 mg/dL (74-106); Lipase 53 U/L (73-393); Potassium 3.7 mmol/L (3.5-5.1); Protein, Total 7.5 g/dL (6.4-8.2); Sodium Level 142 mmol/L (136-145)
[2021-08-17] MEDS ORDERED: NA CHLORIDE 0.9% 500 ML ONE (21:45)
--- NOTE | 2021-08-17 21:51 | RAD REPORT ---
EXAM DESCRIPTION: CT - Stone Protocol - 08/17/2021 9:30 pm CLINICAL HISTORY: Abdominal pain. Right flank pain COMPARISON: January 2021 TECHNIQUE: Computed axial tomography of the abdomen pelvis was obtained without oral or IV contrast. Lack of IV and oral contrast limits evaluation of solid organs, bowel, and vessels. Coronal reformat sherry images were obtained and reviewed. All CT scans are performed using dose optimization technique as appropriate and may include automated exposure control or mA/KV adjustment according to patient size. FINDINGS: A renal calculus is not seen. An ureteral calculus is not noted. A bladder calculus is not present. Cholecystectomy. The liver, spleen, pancreas and adrenals appear grossly normal There is no evidence of diverticulitis. Marked narrowing of L2-3 with vacuum phenomena. Subchondral sclerosis is present. This has progressed since prior exam. IMPRESSION: Negative for a genitourinary calculus Marked narrowing of L2-3 with vacuum phenomena. Subchondral sclerosis is present. This has progressed since prior exam. This could be secondary to an inflammatory/infectious process or simply progressio n in marked spondylosis. This should be correlated clinically and with appropriate lab values
[2021-08-17] MEDS ORDERED: NA CHLORIDE 0.9% 50 ML ONE (23:33)
[2021-08-17] MEDS ORDERED: CEFTRIAXONE 1000 MG/VIAL ONE (23:33)
[2021-08-17 23:49] LABS: Urine Blood 3+ (Negative); Urine Glucose Negative (Negative); Urine Protein Negative (Negative); Urine Specific Gravity 1.015 (1.005-1.030)
[2021-08-18] LABS: Urine Bacteria 20-50 /HPF (<20); Urine RBC TNTC /HPF (NONE SEEN)
--- NOTE | 2021-08-18 00:15 | ER ---
Nurse's Notes [facility] Name: Bárbara Beebe Age: 55 yrs Sex: Female : 1965 Arrival Date: 08/17/2021 Time: 18:39 Bed 18 Private MD: Heron Anderson Diagnosis: UTI/ Urinary tract infection, site not specified;Low back pain Presentation: 08/17 19:18 Chief complaint: Patient states: 2-3 weeks ago symptoms started with blood in urine did sf1 a virtual visit with pcp and he prescribed antibiotics (macrobid) - 2-3 days ago symptoms have gotten worse with back pain and night sweats. 20:14 Coronavirus screen: Vaccine status: Patient reports being unvaccinated. Client denies sf1 travel out of the [place] in the last 14 days. Ebola Screen: Patient negative for fever greater than or equal to 101.5 degrees Fahrenheit, and additional compatible Ebola Virus Disease symptoms. Initial Sepsis Screen: Does the patient meet any 2 criteria? No. Patient's initial sepsis screen is negative. Does the patient have a suspected source of infection? Yes: Dysuria/Frequency/Urgency/UTI. Risk Assessment: Do you want to hurt yourself or someone else? Patient reports no desire to harm self or others. Onset of symptoms was August 14, 2021. 20:14 Method Of Arrival: Ambulatory sf1 20:14 Acuity: ANGELA 3 sf1 Triage Assessment: 20:09 General: Appears in no apparent distress. uncomfortable, Behavior is calm, cooperative, sf1 appropriate for age. Pain: Complains of pain in low back area and right low back. Musculoskeletal: Capillary refill < 3 seconds. Historical: - Allergies: 20:09 UNKNOWN STEROID; sf1 - Home Meds: 20:09 methocarbamol 750 mg Oral tab 1 tab 3 times per day [Active]; losartan 100 mg oral tab sf1 1 tab once daily [Active]; gabapentin 300 mg oral cap 1 cap 3 times per day [Active]; Lunesta 3 mg oral tab 1 tab once daily [Active]; - PMHx: 20:09 bleeding ulcers; COPD; Crohn's; Hypertension; psoriasis; sf1 - PSHx: 20:09 Appendectomy; back sx; Cholecystectomy; hysterectomy; sf1 - Immunization history:: Flu vaccine is up to date. - Social history:: Smoking status: Patient/guardian denies using tobacco, Stopped _ months ago 7. Screenin:13 Abuse screen: Denies threats or abuse. Nutritional screening: No deficits noted. sf1 Tuberculosis screening: No symptoms or risk factors identified. Fall Risk None identified. Assessment: 21:50 General: Appears in no apparent distress. uncomfortable, Behavior is cooperative, ll3 anxious. General: Behavior is calm. Pain: Complains of pain in back and low back area. Neuro: Level of Consciousness is awake, alert, obeys commands, Oriented to person, place, time, situation. Cardiovascular: Patient's skin is warm and dry. Respiratory: Respiratory effort is even, unlabored, Respiratory pattern is regular, symmetrical. Derm: Skin is pink, warm \T\ dry. Musculoskeletal: Range of motion: limited in low back area Reports pain in low back area. 22:58 Reassessment: Patient appears in no apparent distress at this time. No changes from ll3 previously documented assessment. Patient and/or family updated on plan of care and expected duration. Pain level reassessed. Patient is alert, oriented x 3, equal unlabored respirations, skin warm/dry/pink. 08/18 00:08 Reassessment: Patient appears in no apparent distress at this time. Patient and/or ll3 family updated on plan of care and expected duration. Pain level reassessed. Patient is alert, oriented x 3, equal unlabored respirations, skin warm/dry/pink. Patient states feeling better. Vital Signs: 08/17 19:18 BP 164 / 79; Pulse 105; Resp 18; Temp 99.0(TE); Pulse Ox 100% ; sf1 21:59 BP 160 / 78; Pulse 84; Resp 17; Pulse Ox 100% on R/A; ll3 22:58 BP 140 / 72; Pulse 79; Resp 16; Pulse Ox 100% on R/A; ll3 08/18 00:08 BP 144 / 75; Pulse 88; Resp 16; Pulse Ox 98% on R/A; ll3 ED Course: 08/17 18:39 Patient arrived in ED. mr 18:39 Heron Anderson MD is Private Physician. mr 20:14 Triage completed. sf1 20:20 Kamari Ames PA is PHCP. cp 20:20 Stew Bolaños MD is Attending Physician. cp 21:17 Inserted saline lock: 20 gauge in right antecubital area, using aseptic technique. tp1 Blood collected. 21:17 Patient has correct armband on for positive identification. Bed in low position. Call tp1 light in reach. 21:27 Nany Dawn, FRANKI is Primary Nurse. ll3 21:30 CT Stone Protocol In Process Unspecified. EDMS 21:52 No provider procedures requiring assistance completed. ll3 21:52 Arm band placed on Patient placed in an exam room. ll3 08/18 00:14 Heron Anderson MD is Referral Physician. cp 00:47 IV discontinued, intact, bleeding controlled, No redness/swelling at site. Pressure ll3 dressing applied. Administered Medications: 08/17 21:49 Drug: NS 0.9% 500 ml Route: IV; Rate: bolus; Site: right antecubital; ll3 23:01 Follow up: Response: No adverse reaction; IV Status: Completed infusion; IV Intake: ll3 500ml 21:50 Drug: fentaNYL (PF) 25 mcg Route: IVP; Site: right antecubital; ll3 22:19 Follow up: Response: No adverse reaction ll3 23:41 Drug: Rocephin - (cefTRIAXone) 1 grams Route: IVPB; Infused Over: 30 mins; Site: right ll3 antecubital; 08/18 00:46 Follow up: Response: No adverse reaction; IV Status: Completed infusion; IV Intake: [id number] Intake: 08/17 23:01 IV: 500ml; Total: 500ml. ll3 08/18 00:46 IV: 50ml; Total: 550ml. ll3 Outcome: 00:15 Discharge ordered by . cp 00:47 Discharged to home ambulatory. ll3 00:47 Condition: stable 00:47 Discharge instructions given to patient, Instructed on discharge instructions, follow up and referral plans. Demonstrated understanding of instructions, follow-up care, medications, Prescriptions given X 4. 00:48 Patient left the ED. ll3 Signatures: Dispatcher [employer] [facility] ShadeKandice Corey, PA PA cp Nany Dawn, RN RN ll3 Alesia iWlkerson tp1 Kerry Maharaj RN RN sf1
--- NOTE | 2021-08-18 00:15 | EDPHYS ---
Physician Documentation [facility] Name: Bárbara Beebe Age: 55 yrs Sex: Female : 1965 Arrival Date: 08/17/2021 Time: 18:39 Bed 18 Private MD: Heron Anderson ED Physician Stew Bolaños HPI: 08/17 22:20 This 55 yrs old Female presents to ER via Ambulatory with complaints of Back Pain. cp 22:50 The patient presents with pain that is chronic, became worse. cp 22:50 The symptoms are located in the right low back. The pain radiates to the right flank. cp Associated signs and symptoms: Pertinent positives: dysuria, night sweats, Pertinent negatives: abdominal pain, chest pain, constipation, hematuria, numbness, weakness. Patient reports recently finishing prescribed Macrobid for UTI, but symptoms did not resolve. Historical: - Allergies: 20:09 UNKNOWN STEROID; sf1 - Home Meds: 20:09 methocarbamol 750 mg Oral tab 1 tab 3 times per day [Active]; losartan 100 mg oral tab sf1 1 tab once daily [Active]; gabapentin 300 mg oral cap 1 cap 3 times per day [Active]; Lunesta 3 mg oral tab 1 tab once daily [Active]; - PMHx: 20:09 bleeding ulcers; COPD; Crohn's; Hypertension; psoriasis; sf1 - PSHx: 20:09 Appendectomy; back sx; Cholecystectomy; hysterectomy; sf1 - Immunization history:: Flu vaccine is up to date. - Social history:: Smoking status: Patient/guardian denies using tobacco, Stopped _ months ago 7. ROS: 22:05 Constitutional: Positive for night sweats, Negative for fever. cp 22:05 Eyes: Negative for injury, pain, redness, and discharge. cp 22:05 Cardiovascular: Negative for chest pain. 22:05 Respiratory: Negative for cough, shortness of breath, wheezing. 22:05 Abdomen/GI: Negative for vomiting, diarrhea, constipation. 22:05 Back: Positive for flank pain, on the right, of the right low back. 22:05 : Positive for urinary symptoms. 22:05 Neuro: Negative for altered mental status, headache, weakness. 22:05 All other systems are negative. Exam: 22:30 Constitutional: The patient appears in no acute distress, alert, awake, non-toxic, well cp developed, well nourished, uncomfortable. 22:30 Head/Face: Normocephalic, atraumatic. cp 22:30 Eyes: Periorbital structures: appear normal, Conjunctiva: normal, no exudate, no injection, Sclera: no appreciated abnormality, Lids and lashes: appear normal, bilaterally. 22:30 ENT: External ear(s): are unremarkable, Nose: is normal, Mouth: Lips: moist, Oral mucosa: moist, Posterior pharynx: Airway: no evidence of obstruction, patent. 22:30 Chest/axilla: Inspection: normal. 22:30 Cardiovascular: Rate: normal, Rhythm: regular. 22:30 Respiratory: the patient does not display signs of respiratory distress, Respirations: normal, no use of accessory muscles, no retractions, labored breathing, is not present, Breath sounds: are clear throughout, no decreased breath sounds, no stridor, no wheezing. 22:30 Abdomen/GI: Inspection: abdomen appears normal, Bowel sounds: active, all quadrants, Palpation: soft, in all quadrants, moderate abdominal tenderness, in the posterior lower aspect of right lateral abdomen and anterior lower aspect of right lateral abdomen, voluntary guarding, is not appreciated, involuntary guarding, is not appreciated. 22:30 Back: pain, that is moderate, of the right low back, ROM is painful, with all movement. 22:30 Skin: no rash present. 22:30 Neuro: Orientation: to person, place \T\ time. Mentation: is normal, Motor: moves all fours, strength is normal, Sensation: is normal, Gait: is steady, at a normal pace, without difficulty. Vital Signs: 19:18 BP 164 / 79; Pulse 105; Resp 18; Temp 99.0(TE); Pulse Ox 100% ; sf1 21:59 BP 160 / 78; Pulse 84; Resp 17; Pulse Ox 100% on R/A; ll3 22:58 BP 140 / 72; Pulse 79; Resp 16; Pulse Ox 100% on R/A; ll3 08/18 00:08 BP 144 / 75; Pulse 88; Resp 16; Pulse Ox 98% on R/A; ll3 MDM: 08/17 21:00 Differential diagnosis: Cholelithiasis chronic back pain, Pyelonephritis ruptured disc, cp Ureterolithiasis. 21:06 Patient medically screened. 08/18 00:15 Data reviewed: vital signs, nurses notes, lab test result(s), radiologic studies, CT cp scan. 00:15 Counseling: I had a detailed discussion with the patient and/or guardian regarding: the cp historical points, exam findings, and any diagnostic results supporting the discharge/admit diagnosis, lab results, radiology results, to return to the emergency department if symptoms worsen or persist or if there are any questions or concerns that arise at home. Response to treatment: the patient's symptoms have markedly improved after treatment, VSS. Pain improved. Patient appears non-toxic. Will discharge to home for continued monitoring. 08/17 20:07 Order name: Urine Dipstick-Ancillary; Complete Time: 22:14 EDSD 08/17 22:14 Interpretation: Normal except: UBLD 3+; UPROT 1+; UESTR Trace. 08/17 20:09 Order name: Urine Microscopic Only; Complete Time: 00:14 [facility] 08/18 00:14 Interpretation: Normal except: UWBC 5-10; URBC TNTC; UBACT 20-50. 08/17 20:21 Order name: Basic Metabolic Panel; Complete Time: 22:12 08/17 22:13 Interpretation: Reviewed. 08/17 20:21 Order name: CBC with Diff; Complete Time: 21:33 08/17 21:34 Interpretation: Normal except: MPV 6.1. 08/17 20:21 Order name: Hepatic Function; Complete Time: 22:12 08/17 22:13 Interpretation: Normal except: GLOB 3.7; A/G 1.0. 08/17 20:21 Order name: Lipase; Complete Time: 22:12 08/17 22:13 Interpretation: LIP 53; Reviewed. 08/17 20:02 Order name: Urine Dipstick-Ancillary (obtain specimen); Complete Time: 20:08 [facility] 08/17 20:21 Order name: CT Stone Protocol; Complete Time: 22:12 08/17 20:21 Order name: IV Saline Lock; Complete Time: 21:18 08/17 23:24 Order name: Urine Culture 08/17 23:48 Order name: Urine Dipstick-Ancillary; Complete Time: 00:14 EDSD 08/17 20:21 Order name: Labs collected and sent; Complete Time: 21:18 cp Administered Medications: 08/17 21:49 Drug: NS 0.9% 500 ml Route: IV; Rate: bolus; Site: right antecubital; ll3 23:01 Follow up: Response: No adverse reaction; IV Status: Completed infusion; IV Intake: ll3 500ml 21:50 Drug: fentaNYL (PF) 25 mcg Route: IVP; Site: right antecubital; ll3 22:19 Follow up: Response: No adverse reaction ll3 23:41 Drug: Rocephin - (cefTRIAXone) 1 grams Route: IVPB; Infused Over: 30 mins; Site: right ll3 antecubital; 08/18 00:46 Follow up: Response: No adverse reaction; IV Status: Completed infusion; IV Intake: [id number] Disposition: 02:44 Co-signature as Attending Physician, Stew Bolaños MD. [email or web address] Disposition Summary: 08/18/21 00:15 Discharge Ordered Location: Home cp Problem: new cp Symptoms: have improved cp Condition: Stable cp Diagnosis - UTI/ Urinary tract infection, site not specified cp - Low back pain cp Followup: cp - With: Heron Anderson MD - When: 2 - 3 days - Reason: Recheck today's complaints Discharge Instructions: - Discharge Summary Sheet cp - Urinary Tract Infection, Adult cp - Heat Therapy cp - Back Exercises cp Forms: - Medication Reconciliation Form cp - Thank You Letter cp - Antibiotic Education cp - Prescription Opioid Use cp Prescriptions: - Lidoderm 5 % Topical adhesive patch,medicated - apply 1 patch by TOPICAL route once daily; 1 box; Refills: 0, Product Selection cp Permitted - Zofran 4 mg Oral Tablet - take 1 tablet by ORAL route every 12 hours As needed; 20 tablet; Refills: 0, cp Product Selection Permitted - Cyclobenzaprine 10 mg Oral Tablet - take 1 tablet by ORAL route every 8 hours As needed; 20 tablet; Refills: 0, cp Product Selection Permitted - Bactrim DS 800-160 mg Oral Tablet - take 1 tablet by ORAL route every 12 hours for 7 days; 14 tablet; Refills: 0, cp Product Selection Permitted Signatures: Dispatcher [facility] Kamari Ames PA PA Stew Dao MD MD 7 Loubet, Lynsea, RN RN ll3 Fillers, Kerry, RN RN sf1
[2021-08-18 00:51] VITALS: TEMP 99
[2021-08-18 00:55] VITALS: BP 144/75; O2SAT 98
== END 2021-08-18 00:48 | disposition home or self-care (01) ==
LOC: ER 18:36
DX: N39.0 Urinary tract infection, site not specified (principal); I10 Essential (primary) hypertension; J44.9 Chronic obstructive pulmonary disease, unspecified; Z88.8 Allergy status to other drugs, medicaments and biological substances
CPT/HCPCS: 96365; 96361; 87088; 85025; 87086; 80048; 36415; 80076; 83690; 76377; 74176; 96375; 99284; J3010; J7040; 81003; 81015

== ENCOUNTER 2021-09-12 07:01 | Emergency (ER) | payer OTHER ==
--- OUTSIDE RECORDS SUMMARY | 2021-09-12 07:07 | XMS REPORT | Continuity of Care Document ---
:1965 Author Organization [facility] t Address [address] [place] [address] Care Team Providers Name Role Phone [facility] Primary Care Physician Unavailable Titus Attending Clinician [...] Lumbar Lumbar Disease Active Univers stenosis stenosis 7-06 ity of with with 00:00: [place] neurogenic neurogenic 00 Me dical claudicati claudicati Br anch on on Perforated Perforated Disease Active U nivers ulcer ulcer 03-29 ity of 00:00: [place] 00 Medical Branch Melena Melena Disease Active Overview: Univer s 03-29 Added ity of 00:00: automatic [place] 00 ally from Medical request Branch for surgery [id number] Allergies, Adverse Reactions, Alerts Allergy Allergy Status Severity Reaction(s) Onset Inactive Treating Comm ents Source Name Type Date Date Clinician No Known DA Active U 2020-07 [facility] Allergie 0-22 [place] [facility] 00:[facility]: d 00 [facility] sucralfa FA Active U Rash 2020-07 [facility] te 022 [place] 00:00: d 00 [facility] No Known DA Active U 2020-07 [facility] Allergie 0-22 [place] 00:00: d 00 [facility] sucralfa FA Active U 2020-07 [facility] te 0-22 [place] [facility]: [facility] NO KNOWN Drug Active Univers ALLERGIE Class ity of S [facility] Social History Social Habit Start Date Stop Date Quantity Comments Source History of Cigarette Smoker Universi ty of tobacco use [facility] Exposure to Not sure [facility] SARS-CoV-2 [facility] (event) [facility] Tobacco use and 2020-03-02 2020-03-02 Never used Universit y of exposure 00:00:00 00:00:00 [facility] Alcohol intake 2020-03-02 2020-03-02 Current University of 00:00:00 00:00:00 non-drinker of [facility] alcohol (finding) Branch Tobacco Comment 2020-01-21 2020-01-21 1/2 pack a day Unive rsity of 00:00:00 00:00:00 [facility] Sex Ass[birth year] At [birth year] Universit y of 00:00:00 00:00:00 [facility] Smoking Status Start Date Stop Date Source Current every day smoker 2020-03-02 00:00:00 Uni versity of [facility] Medications Ordered Filled Start Stop Current Ordering Indication Dosage Frequency Signature Comments Components Source Medication Medication Date Date Medication? Clinician (SIG) Name Name gabapentin 2020- No [id number] 600mg Take 1 Univers 600 mg 8-04 11-03 tablet by ity of tablet 00:00: 05:59 mouth 3 [place] 00 :00 (three) Medical times Branch daily for 90 days. cyclobenzap 2020-0 2020- No [id number] 10mg Take 1 Univers rine 10 mg 8-04 11-03 tablet by ity of tablet 00:00: 05:59 mouth 3 [place] 00 :00 (three) Medical times Branch daily for 90 days. gabapentin 2020-0 2020- No [id number] 600mg Take 1 Univers 600 mg 8-04 11-03 tablet by ity of tablet 00:00: 05:59 mouth 3 [place] 00 :00 (three) Medical times Branch daily for 90 days. cyclobenzap 2020-0 2020- No [id number] 10mg Take 1 Univers rine 10 mg 8-04 11-03 tablet by ity of tablet 00:00: 05:59 mouth 3 [place] 00 :00 (three) Medical times Branch daily for 90 days. gabapentin 2020-0 2020- No [id number] 600mg Take 1 Univers 600 mg 8-04 11-03 tablet by ity of tablet 00:00: 05:59 mouth 3 [place] 00 :00 (three) Medical times Branch daily for 90 days. cyclobenzap 2020-0 2020- No [id number] 10mg Take 1 Univers rine 10 mg 8-04 11-03 tablet by ity of tablet 00:00: 05:59 mouth 3 [place] 00 :00 (three) Medical times Branch daily for 90 days. gabapentin 2020-0 2020- No [id number] 600mg Take 1 Univers 600 mg 8-04 11-03 tablet by ity of tablet 00:00: 05:59 mouth 3 [place] 00 :00 (three) Medical times Branch daily for 90 days. cyclobenzap 2020-0 2020- No [id number] 10mg Take 1 Univers rine 10 mg 8-04 11-03 tablet by ity of tablet 00:00: 05:59 mouth 3 [place] 00 :00 (three) Medical times Branch daily for 90 days. gabapentin 2020-0 2020- No [id number] 600mg Take 1 Univers 600 mg 8-04 11-03 tablet by ity of tablet 00:00: 05:59 mouth 3 [place] 00 :00 (three) Medical times Branch daily for 90 days. cyclobenzap 2020-0 2020- No [id number] 10mg Take 1 Univers rine 10 mg 8-04 11-03 tablet by ity of tablet 00:00: 05:59 mouth 3 [place] 00 :00 (three) Medical times Branch daily for 90 days. gabapentin 2020-0 2020- No [id number] 600mg Take 1 Univers 600 mg 8-04 11-03 tablet by ity of tablet 00:00: 05:59 mouth 3 [place] 00 :00 (three) Medical times Branch daily for 90 days. cyclobenzap 2020-0 2020- No [id number] 10mg Take 1 Univers rine 10 mg 8-04 11-03 tablet by ity of tablet 00:00: 05:59 mouth 3 [place] 00 :00 (three) Medical times Branch daily for 90 days. gabapentin 2020-0 2020- No [id number] 600mg Take 1 Univers 600 mg 8-04 11-03 tablet by ity of tablet 00:00: 05:59 mouth 3 [place] 00 :00 (three) Medical times Branch daily for 90 days. cyclobenzap 2020-0 2020- No [id number] 10mg Take 1 Univers rine 10 mg 8-04 11-03 tablet by ity of tablet 00:00: 05:59 mouth 3 [place] 00 :00 (three) Medical times Branch daily for 90 days. gabapentin 2020-0 2020- No [id number] 600mg Take 1 Univers 600 mg 8-04 11-03 tablet by ity of tablet 00:00: 05:59 mouth 3 [place] 00 :00 (three) Medical times Branch daily for 90 days. cyclobenzap 2020-0 2020- No [id number] 10mg Take 1 Univers rine 10 mg 8-04 11-03 tablet by ity of tablet 00:00: 05:59 mouth 3 [place] 00 :00 (three) Medical times Branch daily for 90 days. gabapentin 2020-0 2020- No [id number] 600mg Take 1 Univers 600 mg 8-04 11-03 tablet by ity of tablet 00:00: 05:59 mouth 3 [place] 00 :00 (three) Medical times Branch daily for 90 days. cyclobenzap 2020-0 2020- No [id number] 10mg Take 1 Univers rine 10 mg 8-04 11-03 tablet by ity of tablet 00:00: 05:59 mouth 3 [place] 00 :00 (three) Medical times Branch daily for 90 days. gabapentin 2020-0 2020- No [id number] 600mg Take 1 Univers 600 mg 8-04 11-03 tablet by ity of tablet 00:00: 05:59 mouth 3 [place] 00 :00 (three) Medical times Branch daily for 90 days. cyclobenzap 2020-0 2020- No [id number] 10mg Take 1 Univers rine 10 mg 8-10 29-03 tablet by ity of tablet 00:00: 05:59 mouth 3 [place] 00 :00 (three) Medical times Branch daily for 90 days. gabapentin 2020-0 2020- No [id number] 600mg Take 1 Univers 600 mg 8- 11-03 tablet by ity of tablet 00:00: 05:59 mouth 3 [place] 00 :00 (three) Medical times Branch daily for 90 days. cyclobenzap 2020-0 2020- No [id number] 10mg Take 1 Univers rine 10 mg 8-10 29-03 tablet by ity of tablet 00:00: 05:59 mouth 3 [place] 00 :00 (three) Medical times Branch daily for 90 days. methylPREDN 2020-0 Yes [id number] Take by Univers ISolone 7-30 mouth ity of (MEDROL, 00:00: SEE-INSTRU [place] NGA,) 4 mg 00 CTIONS. Medica l tablets follow Branch package directions methylPREDN 2020-0 Yes [id number] Take by Univers ISolone 7-30 mouth ity of (MEDROL, 00:00: SEE-INSTRU [place] NGA,) 4 mg 00 CTIONS. Medica l tablets follow Branch package directions methylPREDN 2020-0 Yes [id number] Take by Univers ISolone 7-30 mouth ity of (MEDROL, 00:00: SEE-INSTRU [place] NGA,) 4 mg 00 CTIONS. Medica l tablets follow Branch package directions methylPREDN 2020-0 Yes [id number] Take by Univers ISolone 7-30 mouth ity of (MEDROL, 00:00: SEE-INSTRU [place] NGA,) 4 mg 00 CTIONS. Medica l tablets follow Branch package directions methylPREDN 2020-0 Yes [id number] Take by Univers ISolone 7-30 mouth ity of (MEDROL, 00:00: SEE-INSTRU [place] NGA,) 4 mg 00 CTIONS. Medica l tablets follow Branch package directions methylPREDN 2020-0 Yes [id number] Take by Univers ISolone 7-30 mouth ity of (MEDROL, 00:00: SEE-INSTRU [place]GA,) 4 mg 00 CTIONS. Medica l tablets follow Branch package directions methylPREDN 2020-0 Yes [id number] Take by Univers ISolone 7-30 mouth ity of (MEDROL, 00:00: SEE-INSTRU [place] NGA,) 4 mg 00 CTIONS. Medica l tablets follow Branch package directions methylPREDN 2020-0 Yes [id number] Take by Univers ISolone 7-30 mouth ity of (MEDROL, 00:00: SEE-INSTRU [place] NGA,) 4 mg 00 CTIONS. Medica l tablets follow Branch package directions methylPREDN 2020-0 Yes [id number] Take by Univers ISolone 7-30 mouth ity of (MEDROL, 00:00: SEE-INSTRU [place]GA,) 4 mg 00 CTIONS. Medica l tablets follow Branch package directions methylPREDN 2020-0 Yes [id number] Take by Univers ISolone 7-30 mouth ity of (MEDROL, 00:00: SEE-INSTRU [place] NGA,) 4 mg 00 CTIONS. Medica l tablets follow Branch package directions methylPREDN 2020-0 Yes [id number] Take by Univers ISolone 7-30 mouth ity of (MEDROL, 00:00: SEE-INSTRU [place] as NGA,) 4 mg 00 CTIONS. Medica l tablets follow Branch package directions methylPREDN 2020-0 Yes [id number] Take by Univers ISolone 7-30 mouth ity of (MEDROL, 00:00: SEE-INSTRU [place] NGA,) 4 mg 00 CTIONS. Medica l tablets follow Branch package directions methylPREDN 2020-0 Yes [id number] Take by Univers ISolone 7-30 mouth ity [...] mouth ity of tablet 20:46: as needed [place] [id number] for Medical Insomnia. Branch traZODone 2020-0 Yes 50mg Take 50 mg Un satinder 50 mg 7-10 by mouth ity of tablet 20:46: as needed [place] [id number] for Medical Insomnia. Branch traZODone 2020-0 Yes 50mg Take 50 mg Un satinder 50 mg 7-10 by mouth ity of tablet 20:46: as needed [place] [address] for Medical Insomnia. Branch traZODone 2020-0 Yes 50mg Take 50 mg Un satinder 50 mg 7-10 by mouth ity of tablet 20:46: as needed [place] [address] for Medical Insomnia. Branch traZODone 2020-0 Yes 50mg Take 50 mg Un satinder 50 mg 7-10 by mouth ity of tablet 20:46: as needed [place] [address] for Medical Insomnia. Branch traZODone 2020-0 Yes 50mg Take 50 mg Un satinder 50 mg 7-10 by mouth ity of tablet 20:46: as needed [place] [address] for Medical Insomnia. Branch pneumococca 2020-0 2020- No .5mL 0.5 mL, Un satinder l vac 7-10 07-10 Intramuscu ity of polyvalent 19:30: 20:00 lar, ONCE, [place] (PNEUMOVAX- 00 :00 1 dose, Medic al 23) Fri Branch injection 01/28/20 at 0.5 mL 1430, Routine cyclobenzap 2020-0 Yes [id number] 5mg Take 1 Univers rine 5 mg 7-10 tablet by ity o f tablet 00:00: mouth 3 [place] 00 (three) Medical times Branch daily. cyclobenzap 2020-0 Yes [id number] 5mg Take 1 Univers rine 5 mg 7-10 tablet by ity o f tablet 00:00: mouth 3 [place] 00 (three) Medical times Branch daily. cyclobenzap 2020-0 Yes [id number] 5mg Take 1 Univers rine 5 mg 7-10 tablet by ity o f tablet 00:00: mouth 3 [place] 00 (three) Medical times Branch daily. cyclobenzap 2020-0 Yes [id number] 5mg Take 1 Univers rine 5 mg 7-10 tablet by ity o f tablet 00:00: mouth 3 [place] 00 (three) Medical times Branch daily. cyclobenzap 2020-0 Yes [id number] 5mg Take 1 Univers rine 5 mg 7-10 tablet by ity o f tablet 00:00: mouth 3 00 (three) Medical times Branch daily. cyclobenzap 2020-0 Yes [id number] 5mg Take 1 Univers rine 5 mg 7-10 tablet by ity o f tablet 00:00: mouth 3 00 (three) Medical times Branch daily. cyclobenzap 2020-0 Yes [id number] 5mg Take 1 Univers rine 5 mg 7-10 tablet by ity o f tablet 00:00: mouth 3 00 (three) Medical times Branch daily. cyclobenzap 2020-0 Yes [id number] 5mg Take 1 Univers rine 5 mg 7-10 tablet by ity o f tablet 00:00: mouth 3 (three) Medical times Branch daily. cyclobenzap 2020-0 Yes [id number] 5mg Take 1 Univers rine 5 mg 7-10 tablet by ity o f tablet 00:00: mouth 3 (three) Medical times Branch daily. cyclobenzap 2020-0 Yes [id number] 5mg Take 1 Univers rine 5 mg 7-10 tablet by ity o f tablet 00:00: mouth 3 (three) Medical times Branch daily. cyclobenzap 2020-0 Yes [id number] 5mg Take 1 Univers rine 5 mg 7-10 tablet by ity o f tablet 00:00: mouth 3 (three) Medical times Branch daily. cyclobenzap 2020-0 Yes [id number] 5mg Take 1 Univers rine 5 mg 7-10 tablet by ity o f tablet 00:00: mouth 3 (three) Medical times Branch daily. cyclobenzap 2020-0 Yes [id number] 5mg Take 1 Univers rine 5 mg 7-10 tablet by ity o f tablet 00:00: mouth 3 00 (three) Medical times Branch daily. cyclobenzap 2020-0 Yes [id number] 5mg Take 1 Univers rine 5 mg 7-10 tablet by ity o f tablet 00:00: mouth 3 00 (three) Medical times Branch daily. cyclobenzap 2020-0 Yes [id number] 5mg Take 1 Univers rine 5 mg 7-10 tablet by ity o f tablet 00:00: mouth 3 00 (three) Medical times Branch daily. cyclobenzap 2020-0 Yes [id number] 5mg Take 1 Univers rine 5 mg 7-10 tablet by ity o f tablet 00:00: mouth 3 [place] 00 (three) Medical times Branch daily. cyclobenzap 2020-0 Yes [id number] 5mg Take 1 Univers rine 5 mg 7-10 tablet by ity o f tablet 00:00: mouth 3 [place] 00 (three) Medical times Branch daily. cyclobenzap 2020-0 Yes [id number] 5mg Take 1 Univers rine 5 mg 7-10 tablet by ity o f tablet 00:00: mouth 3 [place] 00 (three) Medical times Branch daily. cyclobenzap 2020-0 Yes [id number] 5mg Take 1 Univers rine 5 mg 7-10 tablet by ity o f tablet 00:00: mouth 3 [place] 00 (three) Medical times Branch daily. cyclobenzap 2020-0 Yes [id number] 5mg Take 1 Univers rine 5 mg 7-10 tablet by ity o f tablet 00:00: mouth 3 [place] 00 (three) Medical times Branch daily. HYDROcodone 2019-0 2019- No [id number] 1{tbl} Take [...] IV Push, ity of mg 23:20: Q3HPRN, [place] 12 Starting Medical Sadaf 01/27/20 Branch at 1820, Until Discontinu ed, Routine, severe pain not controlled by tylenol acetaminoph 2019-0 Yes 650mg 650 mg, Un satinder en 01-26 Oral, ity of (TYLENOL) 23:18: Q6HPRN, [place] tablet 650 26 Starting Medic al mg [facility] 01/27/20 Branch at 1818, Until Discontinu ed, Routine, Pain (scale 1-3), Temp > 38.5 C ceFAZolin 2019-0 2020- No 1000mg 1,000 mg, Univers (ANCEF) 01-26 IV ity of 1,000 mg in 23:15: 23:14 Piggyback, [place] NaCl 0.9% 00 :00 Q8H ABX, 3 Medi niranjan (NS) 50 mL doses, Branch MINI-BAG First dose on Fri01/27/20 at 1815, Last dose on Fri01/28/20 at [...] Sadaf Med ical tablet 1 01/27/20 at [facility] tablet 1745, Routine, PACU HYDROmorpho 2020-0 2020- No .2mg 0.2 mg, Un satinder ne 01-26 07-09 Slow IV ity of (DILAUDID) 22:32: 23:48 Push, [place] injection 54 :12 Q5MIN PRN, Medi niranjan 0.2 mg 10 doses, Branch Starting Fri01/27/20 at 1732, Until Fri01/27/20 at 1848, Routine, Pain (scale 7-10), PACU
Us e approved by (Faculty): PACU USE -ANESTHESI A SERVICE-HY DROMORPHON E INJECTIONS nicotine 2020-0 Yes 1{patch 1 Patch, Un satinder (NICODERM) 01-25 } Topical, ity o f 14 mg/24 hr 22:15: Administer [place] patch 1 00 over 24 Medical Patch Hours, [facility] Q24H, First dose on Fri01/26/20 at 1715, [...] s mg 00 First dose Medical on Fri [facility] 01/25/20 at 0900, Until Discontinu ed, Routine pantoprazol 2020-0 Yes 40mg 40 mg, Univ ers e 01-24 Oral, BID, ity of (PROTONIX) 01:00: First dose [place] tablet 00 on [facility] 40 mg 01/24/20 at [facility] 1999, Until Discontinu ed, Routine gabapentin 2020-0 Yes 300mg 300 mg, Uni vers (NEURONTIN) 01-24 Oral, TID, it y of capsule 300 01:00: First dose [place] mg 00 on [facility] 01/24/20 at Branch 1999, Until Discontinu ed, Routine NaCl 0.9% 2020-0 Yes 1000mL at 50 Unive rs (NS) IV 7-06 mL/hr, IV ity of infusion 22:45: Infusion, [place] 1,000 mL 00 CONTINUOUS Medic al , Starting Branch [facility] 01/24/20 at 1745, Until Discontinu ed, Routine traZODone 2020-0 Yes 50mg 50 mg, Univer s (DESYREL) 7-06 Oral, ity of tablet 50 21:54: QHSPRN, [place] mg 43 Starting Medical [facility] 01/24/20 Branch at 1654, Until Discontinu ed, Routine, Insomnia ondansetron 2020-0 Yes 4mg 4 mg, Slow Univers (ZOFRAN 7- IV Push, ity of (PF)) 21:38: Q6HPRN, [place] injection 4 49 Starting Medi niranjan mg [facility] 01/24/20 Branch at 1638, Until Discontinu ed, [...] 21:38: Q4HPRN, [place] mg 49 Starting Medical [facility] 01/24/20 Branch at 1638, Until Discontinu ed, Routine, Pain (scale 4-6) acetaminoph 2020-0 2020- No 650mg 650 mg, U nivers en 01-23 07- Oral, ity of (TYLENOL) 15:00: 14:45 ONCE, 1 [place] tablet 650 00 :00 dose, Mon Medi niranjan mg 01/24/20 at Branch 1000, [facility] gadoteridol 2020-0 2020- No .2mL/kg 14.42 mL Univers (PROHANCE-1 01-23- (0.2 mL/kg i ty of 5 mL) 02:30: 02:00 ?72.1 kg), [place] injection 00 :00 Intravenou Medi niranjan 14.42 mL s, ONCE, 1 Branc h dose, 01/23/20 at 2130, Routine traZODone 2020-0 Yes 50mg Take 50 mg Un satinder 50 mg 7-03 by mouth ity of tablet 18:45: as needed [place] 45 for Medical Insomnia. Branch traZODone 2020-0 Yes 50mg Take 50 mg Un satinder 50 mg 7-03 by mouth ity of tablet 18:45: as needed [place] 45 for Medical Insomnia. Branch gabapentin 2020-0 Yes [id number] 300mg Take 1 Univers 300 mg 7-03 capsule by ity of capsule 00:00: mouth 3 [place] 00 (three) Medical times Branch daily. gabapentin 2020-0 Yes [id number] 300mg Take 1 Univers 300 mg 7-03 capsule by ity of capsule 00:00: mouth 3 (three) Medical times Branch daily. gabapentin 2020-0 Yes [id number] 300mg Take 1 Univers 300 mg 7-03 capsule by ity of capsule 00:00: mouth (three) Medical times Branch daily. gabapentin 2020-0 Yes [id number] 300mg Take 1 Univers 300 mg 7-03 capsule by ity of capsule 00:00: mouth (three) Medical times Branch daily. gabapentin 2020-0 Yes [id number] 300mg Take 1 Univers 300 mg 7-03 capsule by ity of capsule 00:00: mouth 3 (three) Medical times Branch daily. gabapentin 2020-0 Yes [id number] 300mg Take 1 Univers 300 mg 7-03 capsule by ity of capsule 00:00: mouth 3 (three) Medical times Branch daily. gabapentin 2020-0 Yes [id number] 300mg Take 1 Univers 300 mg 7-03 capsule by ity of capsule 00:00: mouth 3 [place] (three) Medical times Branch daily. gabapentin 2020-0 Yes [id number] 300mg Take 1 Univers 300 mg 7-03 capsule by ity of capsule 00:00: mouth 3 [place] 00 (three) Medical times Branch daily. gabapentin 2020-0 Yes [id number] 300mg Take 1 Univers 300 mg 7-03 capsule by ity of capsule 00:00: mouth 3 (three) Medical times Branch daily. gabapentin 2020-0 Yes [id number] 300mg Take 1 Univers 300 mg 7-03 capsule by ity of capsule 00:00: mouth 3 [place] (three) Medical times Branch daily. gabapentin 2020-0 Yes [id number] 300mg Take 1 Univers 300 mg 7-03 capsule by ity of capsule 00:00: mouth (three) Medical times Branch daily. gabapentin 2020-0 Yes [id number] 300mg Take 1 Univers 300 mg 7-03 capsule by ity of capsule 00:00: mouth 3 (three) Medical times Branch daily. gabapentin 2020-0 Yes [id number] 300mg Take 1 Univers 300 mg 7-03 capsule by ity of capsule 00:00: mouth (three) Medical times Branch daily. gabapentin 2020-0 Yes [id number] 300mg Take 1 Univers 300 mg 7-03 capsule by ity of capsule 00:00: mouth (three) Medical times Branch daily. gabapentin 2020-0 Yes [id number] 300mg Take 1 Univers 300 mg 7-03 capsule by ity of capsule 00:00: mouth (three) Medical times Branch daily. gabapentin 2020-0 Yes [id number] 300mg Take 1 Univers 300 mg 7-03 capsule by ity of capsule 00:00: mouth (three) Medical times Branch daily. gabapentin 2020-0 Yes [id number] 300mg Take 1 Univers 300 mg 7-03 capsule by ity of capsule 00:00: mouth (three) Medical times Branch daily. gabapentin 2020-0 Yes [id number] 300mg Take 1 Univers 300 mg 7-03 capsule by ity of capsule 00:00: mouth (three) Medical times Branch daily. gabapentin 2020-0 Yes [id number] 300mg Take 1 Univers 300 mg 7-03 capsule by ity of capsule 00:00: mouth (three) Medical times Branch daily. gabapentin 2020-0 Yes [id number] 300mg Take 1 Univers 300 mg 7-03 capsule by ity of capsule 00:00: mouth (three) Medical times Branch daily. gabapentin 2020-0 Yes [id number] 300mg Take 1 Univers 300 mg 7-03 capsule by ity of capsule 00:00: mouth (three) Medical times Branch daily. gabapentin 2020-0 Yes [id number] 300mg Take 1 Univers 300 mg 7-03 [...] by ity of tablet 00:00: mouth 2 [place] 00 (two) Medical times Branch daily. albuterol Yes 2{puff} Inhale 2 U nivers 90 9-11 Puffs ity of mcg/actuati 00:00: every 6 [place] as on inhaler 00 (six) Medical hours as Branch needed for Wheezing or Shortness of Breath. pantoprazol Yes 40mg Take 1 Univ ers e 40 mg EC 9-11 tablet by ity of tablet 00:00: mouth 2 [place] 00 (two) Medical times Branch daily. albuterol Yes 2{puff} Inhale 2 U nivers 90 9-11 Puffs ity of mcg/actuati 00:00: every 6 [place] as on inhaler 00 (six) Medical hours as Branch needed for Wheezing or Shortness of Breath. Immunizations Ordered Filled Immunization Date Status Comments [facility] Immunization Name Name Pneumococcal 2020-01-28 [...] blood 2020-04-04 16:13:00 137 mm[Hg] Univer sity [facility] Diastolic blood 2020-04-04 16:13:00 82 mm[Hg] Unive rsity of [facility] Heart rate 2020-04-04 16:13:00 101 /min [facility] Body height 2020-04-04 16:13:00 157.5 cm [facility] Body weight 2020-04-04 16:13:00 72.576 kg [facility] BMI 2020-04-04 16:13:00 29.26 kg/m2 [facility] Systolic blood 2020-04-04 16:13:00 137 mm[Hg] Univer sity of [facility] Diastolic blood 2020-04-04 16:13:00 82 mm[Hg] Unive rsity of pressure [facility] Heart rate 2020-04-04 16:13:00 101 /min Universi ty of [place] [facility] Body height 2020-04-04 16:13:00 157.5 cm Universi ty of [place] [facility] Body weight 2020-04-04 16:13:00 72.576 kg Universi ty of [place] [facility] BMI 2020-04-04 16:13:00 29.26 kg/m2 Universi ty of [facility] Branch Systolic blood 2020-03-02 13:56:00 128 mm[Hg] Univer sity of pressure [place] [facility] Diastolic blood 2020-03-02 13:56:00 78 mm[Hg] Unive rsity of pressure [place] [facility] Heart rate 2020-03-02 13:55:00 100 /min Universi ty of [facility] Branch Respiratory rate 2020-03-02 13:55:00 16 /min Univ ersity of [facility] Branch Body height 2020-03-02 13:55:00 157.5 cm Universi ty of [place] [facility] Body weight 2020-03-02 13:55:00 73.755 kg Universi ty of [place] [facility] BMI 2020-03-02 13:55:00 29.74 kg/m2 Universi ty of [place] [facility] Oxygen saturation in 2020-03-02 13:55:00 98 /min University of Arterial blood by [facility] Pulse oximetry Branch Systolic blood 2020-02-22 19:48:00 128 mm[Hg] Univer sity of pressure [place] [facility] Diastolic blood 2020-02-22 19:48:00 77 mm[Hg] Unive rsity of pressure [facility] Branch Heart rate 2020-02-22 19:48:00 109 /min Universi ty of [place] [facility] Body height 2020-02-22 19:48:00 157.5 cm Universi ty of [place] [facility] Body weight 2020-02-22 19:48:00 72.984 kg Universi ty of [place] [facility] BMI 2020-02-22 19:48:00 29.43 kg/m2 Universi ty of [place] [facility] Systolic blood 2020-01-28 16:24:00 126 mm[Hg] Univer sity of pressure [place] [facility] Diastolic blood 2020-01-28 16:24:00 64 mm[Hg] Unive rsity of pressure [place] [facility] Heart rate 2020-01-28 16:24:00 88 /min Universi ty of [facility] Branch Body temperature 2020-01-28 16:24:00 36.67 Stefany [facility] Respiratory rate 2020-01-28 16:24:00 18 /min [facility] Oxygen saturation in 2020-01-28 16:24:00 97 /min [facility] Arterial blood by [facility] Pulse oximetry Branch Body height 2020-01-25 02:01:00 157.5 cm Universi ty of [facility] Body weight 2020-01-25 02:01:00 67.586 kg Universi ty of [facility] BMI 2020-01-25 02:01:00 27.25 kg/m2 Universi ty of [facility] Systolic blood 2020-01-21 18:46:00 143 mm[Hg] [facility] sity of [facility] Diastolic blood 2020-01-21 18:46:00 84 mm[Hg] [facility] Heart rate 2020-01-21 18:46:00 76 /min Universi ty of [facility] Body temperature 2020-01-21 18:43:00 37.17 Stefany [facility] Respiratory rate 2020-01-21 18:43:00 15 /min [facility] Body height 2020-01-21 18:43:00 157.5 cm Universi ty of [facility] Body weight 2020-01-21 18:43:00 72.122 kg Universi ty [facility] BMI 2020-01-21 18:43:00 29.08 kg/m2 [facility] [place] [facility] Procedures Procedure Date / Time Performing Clinician Source Performed PATIENT QUESTIONNAIRE 2020-03-02 05:01:00 Doctor Unassigned, No [facility] BASIC METABOLIC PANEL 2020-01-28 09:58:00 Wilfredo Devine [facility] (NA, K, CL, CO2, Medical Branch GLUCOSE, BUN, CREATININE, CA) CBC WITH DIFFERENTIAL 2020-01-28 09:58:00 Wilfredo Devine [facility] XR LUMBAR SPINE 1 VW 2020-01-27 20:09:01 Eris Marcano [facility] XR LUMBAR SPINE 1 VW 2020-01-27 19:46:40 Eris Marcano [facility] LAMINECTOMY LUMBAR WITH 2020-01-27 18:12:00 Qian Andrade Ingrid [facility] DISCECTOMY Medical Branch URINE CULTURE 2020-01-27 17:19:00 Nilson [facility] PROTHROMBIN TIME / INR 2020-01-27 12:35:00 [facility] ACTIVATED PARTIAL 2020-01-27 12:35:00 Nilson [facility] HB ABO GROUPING 2020-01-27 12:30:00 [facility] WITH DIFFERENTIAL 2020-01-27 10:04:00 Nilson [facility] BASIC METABOLIC PANEL 2020-01-27 10:04:00 Nilson [facility] (NA, K, CL, CO2, Medical Branch GLUCOSE, BUN, CREATININE, CA) CBC WITH DIFFERENTIAL 2020-01-26 09:35:00 Nilson [facility] BASIC METABOLIC PANEL 2020-01-26 09:35:00 Nilson [facility] (NA, K, CL, CO2, Medical Branch GLUCOSE, BUN, CREATININE, CA) CBC WITH DIFFERENTIAL 2020-01-25 09:15:00 Nilson [facility] BASIC METABOLIC PANEL 2020-01-25 09:15:00 Nilson [facility] (NA, K, CL, CO2, Medical Branch GLUCOSE, BUN, CREATININE, CA) PROTHROMBIN TIME / INR 2020-01-25 00:22:00 Wilfredo Devine [facility] ACTIVATED PARTIAL 2020-01-25 00:22:00 [facility] 2020-01-25 00:22:00 Nilson [facility] BASIC METABOLIC PANEL 2020-01-25 00:22:00 Nilson [facility] (NA, K, CL, CO2, Medical Branch GLUCOSE, BUN, CREATININE, CA) CBC WITH DIFFERENTIAL 2020-01-25 00:21:00 Nilson [facility] MR LUMBAR SPINE W WO 2020-01-24 02:15:00 Shin Albarran [facility] COVID-19 (ID NOW RAPID 2020-01-24 00:01:00 Shin Albarran [facility] TESTING) Medical Branch URINALYSIS 2020-01-23 22:59:00 Avis [place] [facility] BASIC METABOLIC PANEL 2020-01-23 22:58:00 Shin Albarran [facility] (NA, K, CL, CO2, Medical Branch GLUCOSE, BUN, CREATININE, CA) Encounters Start End Encounter Admission Attending Care Care Encounter Source Date/Time Date/Time Type Type Clinicians Facility Department ID 2021-05-18 Emergency [facility] [id number] Univers 04:44:59 [facility] 2021-05-11 Inpatient HCAPM CHERYL [id number] [facility] 17:52:00 [id number] [facility] 2021-05-11 2021-05-11 Emergency EM Federico Qureshi HCAPM CHERYL [id number] [facility] 17:52:00 21:42:00 14 [facility] 2020-10-10 2020-10-10 [facility] 1.2.840.114 [id number] Univers 00:00:00 00:00:00 Outreach Mohit PRIMARY 350.1.13.10 i ty of [place] [phone] Ut dical [facility] Branch 2020-10-10 2020-10-10 [facility] 1.2.840.114 [id number] 00:00:00 00:00:00 Outreach Mohit PRIMARY 350.1.13.10 [place] CARE 4.2.7.2.686 PAVILLION [id number] 388 2020-04-04 2020-04-04 Outpatient Radha ANDRADE [facility] [id number] Q-20 Univers 11:15:00 11:15:00 [id number] [facility] 2020-04-04 2020-04-04 Outpatient Radha ANDRADE [facility] [id number] Univers 11:15:00 11:15:00 DECEMBER [facility] 2020-04-04 2020-04-04 [facility] [id number] Univers 11:15:00 11:15:00 QIAN ity [facility] 2020-04-04 2020-04-04 Office Nitin [facility] 1.2.840.114 [id number] Univers 10:33:36 10:48:36 Visit [facility] 350.1.13.10 [place] [phone] [address] Office Building 2020-04-04 2020-04-04 Office [facility] 1.2.840.114 [id number] 10:33:36 10:48:36 Visit [facility] 350.1.13.10 Clear 4.2.7.2.686 [place] [phone] [address] 2020-03-29 2020-03-29 Outpatient [facility] [id number] Q-20 Univers 11:15:00 11:15:00 December [facility] 2020-03-29 2020-03-29 Outpatient Radha ANDRADE [facility] [id number] Univers 11:15:00 11:15:00 [facility] 2020-03-24 2020-03-24 Telephone [facility] 1.2.840.114 [id number] Univers 00:00:00 00:00:00 [facility] 350.1.13.10 [place] [phone] [address] Office [facility] 2020-03-23 2020-03-23 Outpatient Radha DOWNEY [facility] [id number] Univers 14:30:00 14:30:00 [facility] 2020-03-23 2020-03-23 Outpatient R NASREEN [facility] [id number] Univers 14:30:00 14:30:00 [facility] 2020-03-23 2020-03-23 Telephone [facility] 1.2.840.114 [id number] Univers 00:00:00 00:00:00 Bahman MULTISPEC 350.1.13.10 ity of [place] [phone] [facility] AND BLAS [facility] [facility] 2020-03-22 2020-03-22 Outpatient R MARIAJOSESTEFFI [facility] [id number] Q-20 Univers 13:15:00 13:15:00 December ity of [facility] 2020-03-15 2020-03-15 Outpatient R MARIAJOSESTEFFI [facility] [id number] Q-20 Univers 10:30:00 10:30:00 [id number] ity of [facility] 2020-03-15 2020-03-15 Outpatient R MARIAJOSESTEFFI [facility] [id number] Univers 10:30:00 10:30:00 DECEMBER ity of [facility] 2020-03-07 2020-03-07 Outpatient R MARIAJOSESTEFFI [facility] [id number] Q-20 Univers 10:45:00 10:45:00 [id number] ity [facility] 2020-03-02 2020-03-02 Office [facility] 1.2.840.114 [id number] Univers 08:38:55 10:24:[address] [facility] 350.1.13.10 ity of [facility] 4.2.7.2.686 [facility] [phone] [facility] 2020-03-02 2020-03-02 Outpatient R NASREEN [facility] [id number] Univers 09:00:00 09:00:00 BAHMAN [id number] ity [facility] 2020-03-02 2020-03-02 Outpatient R NASREEN [facility] [id number] Univers 09:00:00 09:00:00 [facility] 2020-03-02 2020-03-02 Orders Doctor ANU 1.2.840.114 [id number] Univers 00:00:00 00:00:00 Only Unassigned, TRAY 350.1.13.10 ity of [facility] 4.2.7.2.686 [facility] [phone] [place] [address] Branch 2020-02-22 2020-02-22 Office [facility] 1.2.840.114 [id number] Univers 13:48:46 15:34:27 Visit Qian [facility] 350.1.13.10 [place] [phone] [address] Office Building 2020-02-22 2020-02-22 Outpatient R NITIN [facility] [id number] Q-20 Univers 14:15:00 14:15:00 December ity of [facility] 2020-02-22 2020-02-22 Outpatient [facility] [id number] Univers 14:15:00 14:15:00 QIAN ity of [facility] 2020-02-17 2020-02-17 Telephone [facility] 1.2.840.114 [id number] Univers 00:00:00 00:00:00 [facility] 350.1.13.10 [place] [phone] [address] Office Building 2020-02-11 2020-02-11 Office Clinic, Neurosurgery Residen t [facility]ERS[facility] 1.2.840.114 [id number] Univers 12:40:36 14:03:31 Visit Qian Andrade [facility] 350.1.13 .10 ity of CL[place] [phone] [address] 2020-02-11 2020-02-11 Outpatient R NITIN [facility] [id number] Univers 13:00:00 13:00:00 QIAN ity [facility] 2020-02-03 2020-02-03 Telephone [facility] 1.2.840.114 [id number] Univers 00:00:00 00:00:00 Qian [facility] 350.1.13.10 [place] [phone] [address] Office Building 2020-01-31 2020-01-31 Transition Kristina Marie 1.2.840.114 [id number] Univers 00:00:00 00:00:00 of Care Michaela Alanis 350.1.13.10 [place] [phone] [address] 2020-01-23 2020-01-28 Hospital Jenelle Guardado 1.2.84 0.114 [id number] Univers 16:20:21 15:18:00 Encounter Eduin Bansal 350.1.13.1 0 ity of [facility] 4.2.7.2.686 [place] Qian Andradewtgiselle [id number] Medical 094 Branch 2020-01-25 2020-01-25 Telephone ANU Albarran 1.2.840.114 [id number] Univers 00:00:00 00:00:00 Shinosvaldo FELIZ 350.1.13.10 it [facility] 4.2.7.2.686 [place] [phone] [facility] 019 Branch 2020-01-21 2020-01-21 Office SEVEN Gutierrez 1.2.840.114 [id number] Univers 13:30:27 14:00:27 Visit Yadi [facility] 350.1.13.10 ity of [facility] 4.2.7.2.686 Kaleb comer [phone] [facility] 196 Branch 2020-01-21 2020-01-21 Outpatient Radha GUTIERREZ [facility] [id number] Univers 13:15:00 13:15:00 YADI [facility] 2017-03-26 2017-03-26 Emergency E [facility] [id number] Medical 14:55:00 14:55:00 [facility] 2017-03-07 2017-03-07 Emergency E [facility] [id number] Medical 17:01:00 17:01:00 [facility] 2017-02-22 2017-02-22 Emergency E [facility] [id number] Medical 11:40:00 11:40:00 [facility] Results Test Description Test Time Test Comments Results Result [facility] e Comments - CT ABD PELVIS 2021-05-11 W/CONT 20:45:00 [facility] 1965 Sex: F Name: KEKE HAYNES : 1965 Age/S: 55 / F [address] [place] Unit #: [id number] Loc: [place] [address] Phys: Federico Qureshi DO Acct: [id number] Dis Date: Status: REG ER PHONE #: [phone] Exam Date: 05/11/20212029 FAX #: Reason: pain - s/p colonoscopy yesterday EXAMS: CPT: [id number] CT ABD PELVIS W/CONT 63417 EXAMINATION: - CT ABD PELVIS W/CONT COMPARISON: [...] HAYNES : 1965 Age/S: 55 / F [address] [address] [place] Unit #: [id number] Loc: [place] [address] Phys: Federico Qureshi DO Acct: [id number] Dis Date: Status: REG ER PHONE #: [phone] Exam Date: 05/11/20212029 FAX #: Reason: pain - s/p colonoscopy yesterday EXAMS: CPT: [id number] CT ABD PELVIS W/CONT 95820 <Continued> No evidence of bowel perforation or other acute abnormality Dilated common bile duct and intrahepatic biliary system. In the absence of abnormal laboratory values, findings may be related to reservoir effect secondary to the patient's cholecystectomy status at 2044 Reported and signed by: Silvia Olmedo M.D. CC: Federico Qureshi DO Technologist:Jonelle Mazariegos, RT (R)(CT) CTDI: DLP: Trnscb Date/Time: 05/11/2021 (2044) Chantell.AG38 Orig Print D/T: S: 05/11/2021 (2047) PAGE 2 Signed Report LIPASE 2021-05-11 19:26:00 Test Item Value Reference Range Interpretation Comme nts LIPASE (test code = LIP) 73 Unit/L 114-286 L BASIC METABOLIC [id number] 19:26:00 Test Item Value Reference Range Interpretation [...] CA) 9.5 MG/DL 8.5-10.1 N HEPATIC FUNCTION [id number] 19:26:00 Test Item Value Reference Range Interpretation [...] = ALKP) UA RFLX MICR CULT IF [id number] 19:08:00 Test Item Value Reference Range Interpretation [...] BACU) Indication for culture: Flank PainCBC W/AUTO [id number] 18:41:00 Test Item Value Reference Range Interpretation [...] code NO DIFF/SCN CRITERIA = MDIFF) URINE [id number] 11:57:00 Test Item Value Reference Range Interpretation Comments URINE CULTURE (test No aerobic organisms code = 630-4) isolated [facility] METABOLIC PANEL (NA, K, CL, CO2, GLUCOSE, BUN, CREATININE, CA)2020-01-28 10:47:00 Test Item Value Reference Range Interpretation Comments NA (test code = 135 mmol/L 135-145 5883017860) K (test code = 4.0 mmol/L 3.5-5 5939676931) CL (test code = 104 mmol/L 98-108 2399170536) CO2 TOTAL (test code = 26 mmol/L 23-31 9769655525) AGAP (test code = 2-16 8173527726) BUN (test code = 7 mg/dL 7-23 1213084462) GLUCOSE (test code = 128 mg/dL 70-110 H 3770844631) CREATININE (test code = 0.42 mg/dL 0.5-1.04 L 0826160975) CALCIUM (test code = 9.1 mg/dL 8.6-10.6 5777912424) eGFR Calculation mL/min/1.73m2 (Non-) (test code = 0824413228) eGFR Calculation mL/min/1.73m2 () (test code = 1372134703) SOLEDAD (test code = SOLEDAD) Association of [...] tests). Lab Interpretation Abnormal (test code = 14731-0) [facility] WITH [id number] 10:28:00 Test Item Value Reference Range Interpretation Comments WBC (test code = See_Comment H [Automated 7210-2) message] The system which generated this result transmit sherry reference range : 4.30 - 11.10 10*3/?L. The reference range was not used to interpret this result as normal/abnormal . RBC (test code = See_Comment L [Automated 013-8) message] The system which generated this result [...] RDW-SD (test code = 40.6 fL 39-49.9 04137-6) RDW-CV (test code = 12.2 % 12-15.5 788-0) PLT (test code = See_Comment [Automated 777-3) message] The system which generated this result transmit sherry reference range : 166 - 358 10*3/ ?L. The reference range was not u sed to interpret th is result as normal/abnormal . MPV (test code = 8.8 fL 9.5-12.9 L 29366-3) NRBC/100 WBC (test See_Comment [Automat ed code = 5056160332) message] The system which generated this result transmit sherry reference range : 0.0 - 10.0 /100 WBCs. The reference range was not used to interpret this result as normal/abnormal . NRBC x10^3 (test code <0.01 See_Comment [Auto mated = 0570404979) message] The system which generated this result transmit shrery reference range : 10*3/?L. The reference range was not used to interpret this result as normal/abnormal . GRAN MAT (NEUT) % 84.9 % (test code = 770-8) IMM GRAN % (test code 0.40 % = 1468519382) LYMPH % (test code = 10.7 % 736-9) MONO % (test code = 3.7 % 5905-5) EOS % (test code = 0.1 % 713-8) BASO % (test code = 0.2 % 706-2) GRAN MAT x10^3(ANC) 10.00 10*3/uL 1.88-7.09 H (test code = 9834464093) IMM GRAN x10^3 (test 0.05 10*3/uL 0-0.06 code = 9499124993) LYMPH x10^3 (test code 1.26 10*3/uL 1.32-3.29 L = 731-0) MONO x10^3 (test code 0.43 10*3/uL 0.33-0.92 = 742-7) EOS x10^3 (test code = <0.03 0.03-0.39 L 711-2) BASO x10^3 (test code <0.03 0.01-0.07 = 704-7) Lab Interpretation Abnormal (test code = 20558-3) [facility] LUMBAR SPINE 1 [id number] 20:33:47 Lateral intraoperative radiographs of the lumbar spine was obtained. ?Themost inferior fully formeddisc is presumed L5-S1. On the second lateral intraoperative radiograph, superior localizinginstrument tips are identified L2- L3 level. Inferior localizing instrumenttip is identified at L5-S1 level.EXA MINATION: XR LUMBAR SPINE 1 CLINICAL HISTORY: Intraoperative COMPARISON: ?None [facility], Radiant Results Inft User - 01/27/2020 3:34 PM CDTEXAMINATION: XR LUMBAR SPINE 1 CLINICAL HISTORY: IntraoperativeCOMPARISON: NoneIMPRESSIONLateral intraoperative radiographs of the lumbar spine was obtained. Themost inferior fully formed disc is presumed L5-S1.On the second lateral intraoperative radiograph, superior localizinginstrument tips are identified L2-L3 level. Inferior localizing instrumenttip is identified at L5-S1 level.[facility] LUMBAR SPINE 1 [id number] 19:58:40 Single lateral intraoperative radiograph of the [...] 2:59 PM CDTEXAMINATION: XR LUMBAR SPINE 1 CLINICAL HISTORY: IntraoperativeCOMPARISON: NoneIMPRESSIONSingle lateral intraoperative radiograph of the lumbar spine was obtained. The most inferior fully formed disc is presumed L5-S1.The superior localizing instrument tip is posterior to the L1 spinousprocess at the level of the L2 vertebral body. The inferior localizinginstrument tip is at the level of the L5 vertebral body.[facility] / [id number] 13:21:00 Test Item Value Reference Range Interpretation Comments PROTIME PATIENT (test See_Comment [Auto mated message] code = 5964-2) The system [facility] generated this result transmitted ref erence range: 10.1 - 1 2.6 Seconds. The re ference range was not u sed to interpret this result as normal/abnor mal. INR (test code = 6301-6) Nor mal INR <1.1; Warfarin Therap eutic range 2.0 to 3. 0 or 2.5 to 3.5, dep ending upon the indica tions. Lab Interpretation (test Normal code = 13035-2) [facility] 13:21:00 Test Item Value Reference Range Interpretation Comments APTT Patient (test code See_Comment H [Au tomated message] = 3173-2) The system [employer] generated this result transmitted ref erence range: 26 - 36 Seconds. The reference range was not used to int erpret this result as normal/abnormal . Lab Interpretation (test Abnormal code = 90385-4) [facility]Type and Screen - ONCE [id number] 13:15:10 Test Item Value Reference Range Interpretation Comments ABO & RH (test code O POSITIVE Performe d at [facility] = 20) Laboratory Serv [facility] [place] [address] s [id number] Free: [phone] A No. [id number] IAT (test code = Negative Performed a t [facility] 1185) Laboratory Serv [facility] [address] [place] [address] s [id number] Free: [phone] A No. [id number] [facility] (NA, K, CL, CO2, GLUCOSE, BUN, CREATININE, CA)2020-01-27 10:53:00 Test Item Value Reference Range Interpretation Comments NA (test code = 138 mmol/L 135-145 5082732390) K (test code = 3.7 mmol/L 3.5-5 0595578941) CL (test code = 105 mmol/L 98-108 5805519860) CO2 TOTAL (test code = 26 mmol/L 23-31 5204296151) AGAP (test code = 2-16 4642670798) BUN (test code = 13 mg/dL 7-23 2551148492) GLUCOSE (test code = 98 mg/dL 70-110 4218037576) CREATININE (test code 0.51 mg/dL 0.5-1.04 = 0906602895) CALCIUM (test code = 9.1 mg/dL 8.6-10.6 0686746421) eGFR Calculation mL/min/1.73m2 (Non-) (test code = 9977011881) eGFR Calculation mL/min/1.73m2 () (test code = 8235583403) SOLEDAD (test code = SOLEDAD) Association of [...] or urine or abnormalities in imaging tests). [facility] WITH [id number] 10:32:00 Test Item Value Reference Range Interpretation Comments WBC (test code = See_Comment [Automated 2890-2) message] The sy stem which generated this [...] RDW-SD (test code = 39.8 fL 39-49.9 81045-7) RDW-CV (test code = 12.2 % 12-15.5 788-0) PLT (test code = See_Comment [Automated 777-3) message] The sy stem which generated this result transmitted reference range : 166 - 358 10*3/ ?L. The reference r john was not used to interpret this result as normal/abnormal . MPV (test code = 8.5 fL 9.5-12.9 L 43851-7) NRBC/100 WBC (test See_Comment [Automat ed code = 8048045432) message] The system which generated this result transmitted reference range : 0.0 - 10.0 /100 WBCs. The refer ence range was not u sed to interpret th is result as normal/abnormal . NRBC x10^3 (test code <0.01 See_Comment [Auto mated = 6484256375) message] The s ystem which generated this result transmitted reference range : 10*3/?L. The reference range was not used to interpret this result as normal/abnormal . GRAN MAT (NEUT) % 44.4 % (test code = 770-8) IMM GRAN % (test code 0.30 % = 0495768577) LYMPH % (test code = 42.7 % 736-9) MONO % (test code = 7.1 % 5905-5) EOS % (test code = 4.9 % 713-8) BASO % (test code = 0.6 % 706-2) GRAN MAT x10^3(ANC) 2.81 10*3/uL 1.88-7.09 (test code = 4255129570) IMM GRAN x10^3 (test <0.03 0-0.06 code = 0373879827) LYMPH x10^3 (test code 2.71 10*3/uL 1.32-3.29 = 731-0) MONO x10^3 (test code 0.45 10*3/uL 0.33-0.92 = 742-7) EOS x10^3 (test code = 0.31 10*3/uL 0.03-0.39 711-2) BASO x10^3 (test code 0.04 10*3/uL 0.01-0.07 = 704-7) Lab Interpretation Abnormal (test code = 43830-1) [facility] METABOLIC PANEL (NA, K, CL, CO2, GLUCOSE, BUN, CREATININE, CA)2020-01-26 11:01:00 Test Item Value Reference Range Interpretation Comments NA (test code = 135 mmol/L 135-145 4183195491) K (test code = 4.3 mmol/L 3.5-5 Slight 6932549722) hemolysis CL (test code = 105 mmol/L 98-108 5252830474) CO2 TOTAL (test code 22 mmol/L 23-31 L = 2216124070) AGAP (test code = 2-16 2365135727) BUN (test code = 17 mg/dL 7-23 Slight 6515379963) hemolysis GLUCOSE (test code = 103 mg/dL 70-110 9072184284) CREATININE (test code 0.59 mg/dL 0.5-1.04 = 7612448230) CALCIUM (test code = 9.3 mg/dL 8.6-10.6 0770303417) eGFR Calculation mL/min/1.73m2 (Non-) (test code = 2323332683) eGFR Calculation mL/min/1.73m2 () (test code = 9153507865) SOLEDAD (test code = SOLEDAD) Association of [...] tests). Lab Interpretation Abnormal (test code = 65553-4) [facility] WITH [id number] 10:18:00 Test Item Value Reference Range Interpretation Comments WBC (test code = See_Comment [Automated 3532-2) message] The sy stem which generated this result transmitted reference range : 4.30 - 11.10 10*3/?L. The reference range was not used to interpret this result as normal/abnormal . RBC (test code = See_Comment [Automated 762-8) message] The sy stem which generated this [...] RDW-SD (test code = 40.5 fL 39-49.9 12972-0) RDW-CV (test code = 12.2 % 12-15.5 788-0) PLT (test code = See_Comment H [Automated 777-3) message] The sy stem which generated this result transmitted reference range : 166 - 358 10*3/ ?L. The reference r john was not used to interpret this result as normal/abnormal . MPV (test code = 9.1 fL 9.5-12.9 L 96970-2) NRBC/100 WBC (test See_Comment [Automat ed code = 3542277543) message] The system which generated this result transmitted reference range : 0.0 - 10.0 /100 WBCs. The refer ence range was not u sed to interpret th is result as normal/abnormal . NRBC x10^3 (test code <0.01 See_Comment [Auto mated = 1182840286) message] The s ystem which generated this result transmitted reference range : 10*3/?L. The reference range was not used to interpret this result as normal/abnormal . GRAN MAT (NEUT) % 44.6 % (test code = 770-8) IMM GRAN % (test code 0.10 % = 0654506343) LYMPH % (test code = 42.5 % 736-9) MONO % (test code = 7.2 % 5905-5) EOS % (test code = 5.2 % 713-8) BASO % (test code = 0.4 % 706-2) GRAN MAT x10^3(ANC) 3.01 10*3/uL 1.88-7.09 (test code = 0567056818) IMM GRAN x10^3 (test <0.03 0-0.06 code = 7286354241) LYMPH x10^3 (test code 2.88 10*3/uL 1.32-3.29 = 731-0) MONO x10^3 (test code 0.49 10*3/uL 0.33-0.92 = 742-7) EOS x10^3 (test code = 0.35 10*3/uL 0.03-0.39 711-2) BASO x10^3 (test code 0.03 10*3/uL 0.01-0.07 = 704-7) Lab Interpretation Abnormal (test code = 66410-0) [facility] WITH [id number] 10:55:00 Test Item Value Reference Range Interpretation [...] RDW-SD (test code = 41.4 fL 39-49.9 78586-5) RDW-CV (test code = 12.5 % 12-15.5 788-0) PLT (test code = See_Comment [Automated 777-3) message] The sy stem which generated this result transmitted reference range : 166 - 358 10*3/ ?L. The reference r john was not used to interpret this result as normal/abnormal . MPV (test code = 9.2 fL 9.5-12.9 L 31732-2) NRBC/100 WBC (test See_Comment [Automat ed code = [id number]) message] The system which generated this result transmitted reference range : 0.0 - 10.0 /100 WBCs. The refer ence range was not u sed to interpret th is result as normal/abnormal . NRBC x10^3 (test code <0.01 See_Comment [Auto mated = [id number]) message] The [employer] which generated this result transmitted reference range : 10*3/?L. The reference range was not used to interpret this result as normal/abnormal . GRAN MAT (NEUT) % 31.3 % (test code = 770-8) IMM GRAN % (test code 0.20 % = 9433782166) LYMPH % (test code = 53.1 % 736-9) MONO % (test code = 8.6 % 5905-5) EOS % (test code = 6.3 % 713-8) BASO % (test code = 0.5 % 706-2) GRAN MAT x10^3(ANC) 1.79 10*3/uL 1.88-7.09 L (test code = 3602741864) IMM GRAN x10^3 (test <0.03 0-0.06 code = 2233882188) LYMPH x10^3 (test code 3.04 10*3/uL 1.32-3.29 = 731-0) MONO x10^3 (test code 0.49 10*3/uL 0.33-0.92 = 742-7) EOS x10^3 (test code = 0.36 10*3/uL 0.03-0.39 711-2) BASO x10^3 (test code 0.03 10*3/uL 0.01-0.07 = 704-7) REACT LYMPHS (test Moderate code = 0434336818) Lab Interpretation Abnormal (test code = 88968-0) [facility] METABOLIC PANEL (NA, K, CL, CO2, GLUCOSE, BUN, CREATININE, CA)2020-01-25 10:38:00 Test Item Value Reference Range Interpretation Comments NA (test code = 139 mmol/L 135-145 5971117389) K (test code = 4.0 mmol/L 3.5-5 5459553616) CL (test code = 105 mmol/L 98-108 6710018494) CO2 TOTAL (test code = 26 mmol/L 23-31 8466410913) AGAP (test code = 2-16 5126955799) BUN (test code = 12 mg/dL 7-23 4298524275) GLUCOSE (test code = 99 mg/dL 70-110 2774008357) CREATININE (test code = 0.47 mg/dL 0.5-1.04 L 6501206631) CALCIUM (test code = 9.2 mg/dL 8.6-10.6 0287803502) eGFR Calculation mL/min/1.73m2 (Non-) (test code = 8515370637) eGFR Calculation mL/min/1.73m2 () (test code = 4987604094) SOLEDAD (test code = SOLEDAD) Association of [...] tests). Lab Interpretation Abnormal (test code = 91196-3) [facility] METABOLIC PANEL (NA, K, CL, CO2, GLUCOSE, BUN, CREATININE, CA)2020-01-25 00:52:00 Test Item Value Reference Range Interpretation Comments NA (test code = 138 mmol/L 135-145 1094748655) K (test code = 5.0 mmol/L 3.5-5 Slight hemoly sis 4103645490) CL (test code = 107 mmol/L 98-108 1439435936) CO2 TOTAL (test 24 mmol/L 23-31 code = 0563342892) AGAP (test code = 2-16 0701077207) BUN (test code = 8 mg/dL 7-23 Slight hemo lysis 1846823170) GLUCOSE (test code 107 mg/dL 70-110 = 3665349214) CREATININE (test 0.53 mg/dL 0.5-1.04 code = 9037063224) CALCIUM (test code 9.3 mg/dL 8.6-10.6 = 0898789005) eGFR Calculation mL/min/1.73m2 (Non-) (test code = 5091765271) eGFR Calculation mL/min/1.73m2 () (test code = 1863437974) SOLEDAD (test code = Association of SOLEDAD) [...] or urine or abnormalities in imaging tests). [facility] [id number] 00:41:00 Test Item Value Reference Range Interpretation [...] tions. Lab Interpretation (test Normal code = 11888-5) [facility]00 Test Item Value Reference Range Interpretation Comments APTT Patient (test code See_Comment H [Au tomated message] = 3173-2) The system whic h generated this result transmitted ref erence range: 26 - 36 Seconds. The reference range was not used to int erpret this result as normal/abnormal . Lab Interpretation (test Abnormal code = 82269-2) [facility] 00:41:00 Test Item Value Reference Range Interpretation Comments Fibrinogen (test code = 5607095935) 488 mg/dL 167-453 H Lab Interpretation (test code = Abnormal 87877-0) [facility]CBC WITH [id number] 00:37:00 Test Item Value Reference Range Interpretation Comments WBC (test code = See_Comment [Automated 0133-2) message] The sy stem which generated this result transmitted reference range : 4.30 - 11.10 10*3/?L. The reference range was not used to interpret this result as normal/abnormal . RBC (test code = See_Comment [Automated 809-8) message] The sy stem which generated this [...] RDW-SD (test code = 41.0 fL 39-49.9 18689-7) RDW-CV (test code = 12.4 % 12-15.5 788-0) PLT (test code = See_Comment H [Automated 777-3) message] The sy stem which generated this result transmitted reference range : 166 - 358 10*3/ ?L. The reference r john was not used to interpret this result as normal/abnormal . MPV (test code = 8.6 fL 9.5-12.9 L 19191-5) NRBC/100 WBC (test See_Comment [Automat ed code = 9781345984) message] The system which generated this result transmitted reference range : 0.0 - 10.0 /100 WBCs. The refer ence range was not u sed to interpret th is result as normal/abnormal . NRBC x10^3 (test code <0.01 See_Comment [Auto mated = 3074060239) message] The s ystem which generated this result transmitted reference range : 10*3/?L. The reference range was not used to interpret this result as normal/abnormal . GRAN MAT (NEUT) % 44.8 % (test code = 770-8) IMM GRAN % (test code 0.20 % = 2338441488) LYMPH % (test code = 41.3 % 736-9) MONO % (test code = 8.3 % 5905-5) EOS % (test code = 4.8 % 713-8) BASO % (test code = 0.6 % 706-2) GRAN MAT x10^3(ANC) 2.91 10*3/uL 1.88-7.09 (test code = 6594374959) IMM GRAN x10^3 (test <0.03 0-0.06 code = 2176414688) LYMPH x10^3 (test code 2.68 10*3/uL 1.32-3.29 = 731-0) MONO x10^3 (test code 0.54 10*3/uL 0.33-0.92 = 742-7) EOS x10^3 (test code = 0.31 10*3/uL 0.03-0.39 711-2) BASO x10^3 (test code 0.04 10*3/uL 0.01-0.07 = 704-7) Lab Interpretation Abnormal (test code = 33620-4) [facility]MR [facility] W WO [id number] 13:56:48 Spondylosis and spondyloarthropathy result in moderate [...] on the descending L3 and S1 nerve roots.[facility] HospitalCOVID[facility] (ID NOW RAPID TESTING)2020-01-24 00:44:00 Test Item Value Reference Range Interpretation Comments SARS-CoV-2 Rapid ID NOW Not Detected Not Detected (test code = 33319-1) SOLEDAD (test code = SOLEDAD) ID NOW COVID-19 Assay is an isothermal nucleic acid amplification test intended for the qualitative detection of nucleic acid from SARS-CoV-2 viral RNA in nasopharyngeal ([employer]) specimens. It is used under Emergency Use [...] indicated. Lab Interpretation Normal (test code = 09074-7) [facility] METABOLIC PANEL (NA, K, CL, CO2, GLUCOSE, BUN, CREATININE, CA)2020-01-23 23:29:00 Test Item Value Reference Range Interpretation Comments NA (test code = 138 mmol/L 135-145 0588191730) K (test code = 4.3 mmol/L 3.5-5 3418235874) CL (test code = 108 mmol/L 98-108 0947764352) CO2 TOTAL (test code = 23 mmol/L 23-31 4063639621) AGAP (test code = 2-16 6832600687) BUN (test code = 8 mg/dL 7-23 6439163742) GLUCOSE (test code = 83 mg/dL 70-110 7428249499) CREATININE (test code = 0.44 mg/dL 0.5-1.04 L 6401732444) CALCIUM (test code = 9.6 mg/dL 8.6-10.6 7602845519) eGFR Calculation mL/min/1.73m2 (Non-) (test code = 7442093722) eGFR Calculation mL/min/1.73m2 () (test code = 8642429256) SOLEDAD (test code = SOLEDAD) Association of [...] tests). Lab Interpretation Abnormal (test code = 12619-2) [facility]IS2020-[facility] 23:25:00 Test Item Value Reference Range Interpretation Comments APPEARANCE (test code = Clear Clear 2634490386) COLOR (test code = Yellow Yellow 0285749541) PH (test code = 4.8-8.0 0838101133) SP GRAVITY (test code = 1.003-1.030 1109056729) GLU U QUAL (test code = Normal Normal 4604086343) BLOOD (test code = 1+ Negative A 0815114008) KETONES (test code = Negative Negative 9449429038) PROTEIN (test code = Negative Negative 2887-8) UROBILIN (test code = Normal Normal 2093229105) BILIRUBIN (test code = Negative Negative 9111710747) NITRITE (test code = Negative Negative 2243830967) LEUK IRAJ (test code = Negative Negative 9517498892) RBC/HPF (test code = See_Comment [Autom ated message] 4161127001) The system [employer] generated this result transmitted ref erence range: 0 - 3 HP F. The reference range was not used to int erpret this result as normal/abnormal . WBC/HPF (test code = See_Comment [Autom ated message] 4380937903) The system [employer] generated this result transmitted ref erence range: 0 - 5 HP F. The reference range was not used to int erpret this result as normal/abnormal . BACTERIA (test code = Negative Negative 1197952397) SQ EPITH (test code = See_Comment [Auto mated message] 5642953826) The system [employer] generated this result transmitted ref erence range: <=2 HPF. The reference range was not used to int erpret this result as normal/abnormal . Lab Interpretation (test Abnormal code = 63222-8) [facility] HospitalXR Abdomen KUB 1 Mkdr0882-17-40 18:15:18 Patient: KEKE HAYNES Date/Time03/15/2019 18:02 CDTReason [...] Michael JackSigned (Electronic Signature): 03/15/2019 6:15 pmUrinalysis Cfwnbyxefbu3888-87-61 16:19:42 Test Item Value Reference Range Interpretation Comments UA WBC (test code = UA WBC) 0-5 /HPF 0-5 UA RBC (test code = UA RBC) 0-4 /HPF 0-4 UA Bacteria (test code = UA Negative /HPF Negative Bacteria) UA Squam Epithelial (test code 21-73 /LPF 0-20 A = UA Squam Epithelial) Urinalysis with Culture, if tbujjnkxc9369-30-68 16:19:42 Test Item Value Reference Range Interpretation [...] = UA Micro Ind?) rule GL_SET_UA_MICRO _IND Lwkakmn2244-23-90 16:13:11 Test Item Value Reference Range Interpretation Comments Amylase Level (test code = 53 IntlUnit/L 25-115 Amylase Level) Comprehensive [facility] Ebbsz0653-69-78 16:13:11 Test Item Value Reference Range Interpretation [...] = AST) 20 IntlUnit/L 15-37 Comprehensive Metabolic Fnsqg7025-99-25 16:13:11 Test Item Value Reference Range Interpretation [...] >60 mL/min/1.73 m2 N AA) Comprehensive [facility] Yqrpj5366-42-58 16:13:11 Test Item Value Reference Range Interpretation [...] >60 mL/min/1.73 m2 N eGFR Non-AA) Automated Zlwjbtajsiis3484-53-03 16:12:15 Test Item Value Reference Range Interpretation Comments Neutro Auto (test code = Neutro Auto) 55.4 % N Lymph Auto (test code = Lymph Auto) 36.3 % N [place] Auto (test code = [place] Auto) 5.5 % N Eos, Auto (test code = Eos, Auto) 1.9 % N Basophil Auto (test code = Basophil 0.9 % N Auto) Neutro Absolute (test code = Neutro 4.9 x10 2.7-7.3 Absolute) Lymph Absolute (test code = Lymph 3.2 x10 0.8-3.5 Absolute) [place] Absolute (test code = [place] 0.5 x10 0.3-0.9 Absolute) Eos Absolute (test code = Eos 0.2 x10 0.0-0.3 Absolute) Baso Absolute (test code = Baso 0.1 x10 0.0-0.1 Absolute) Complete Blood Count with Ggginoohyfar7754-82-59 16:12:14 Test Item Value Reference Range Interpretation [...] created by = Slide Review) GL_SET_SLIDE _REVIEW_A [facility] Comprehensive Metabolic Ivzrm2858-85-41 14:21:14 Test Item Value Reference Range Interpretation [...] = AST) 22 IntlUnit/L 15-37 Comprehensive Metabolic Gduzn5483-54-16 14:21:14 Test Item Value Reference Range Interpretation [...] >60 mL/min/1.73 m2 N AA) Comprehensive Metabolic Vyuqc6827-10-70 14:21:14 Test Item Value Reference Range Interpretation [...] m2 N eGFR Non-AA) Pro B Natriuretic Orszsen5577-10-59 14:05:15 Test Item Value Reference Range Interpretation [...] f ailure likely Complete Blood Count with Iehddwhppwgj7254-44-61 13:59:12 Test Item Value Reference Range Interpretation [...] = Slide Review) GL_SET_SLIDE _REVIEW_A UTO Automated Zsikweqsgfxf0947-99-52 13:59:12 Test Item Value Reference Range Interpretation Comments Neutro Auto (test code = Neutro Auto) 68.5 % N Lymph Auto (test code = Lymph Auto) 24.5 % N [place] Auto (test code = [place] Auto) 5.6 % N Eos, Auto (test code = Eos, Auto) 1.0 % N Basophil Auto (test code = Basophil 0.4 % N Auto) Neutro Absolute (test code = Neutro 8.2 x10 2.7-7.3 H Absolute) Lymph Absolute (test code = Lymph 2.9 x10 0.8-3.5 Absolute) [place] Absolute (test code = [place] 0.7 x10 0.3-0.9 Absolute) Eos Absolute (test code = Eos 0.1 x10 0.0-0.3 Absolute) Baso Absolute (test code = Baso 0.0 x10 0.0-0.1 Absolute) XR Chest 2 Lfhbo7792-19-90 13:41:47Patient: KEKE HAYNES Date/Time02/24/201913:18 CDTReason for ExamShortness [...] (Electronic Signature): 02/24/2019 1:41 pmXR Chest 2 [id number] 10:31:38Patient: KEKE HAYNES Date/Time10/06/2018 10:23 CDTReason for [...] 09/22/2018 2:38 pmXR Ankle Complete 3+ Views Rmwrb0673-35-69 07:53:52Patient: KEKE HAYNES Date/Time09/04/2018 22:40 CSTReason for [...] 09/05/2018 7:53 amXR Foot Complete 3+ Views Tpeo9509-36-25 07:53:39Patient: KEKE HAYNES Date/Time09/04/2018 22:40 CSTReason for [...] 09/05/2018 7:53 amCT Abdomen and Pelvis w/o Bdgixbqz3820-19-35 14:15:18Patient: KEKE HAYNES Date/Time07/09/2018 13:45 CSTReason for [...] MD Leary Craig ASigned (Electronic Signature): 07/09/2018 2:67qzJPTDUPAMQV1981-32-47 18:24:00 Test Item Value Reference Range Interpretation [...] BACTERIA (test code = NEGATIVE NONE BACTERIA) [id number] 18:16:00 Test Item Value Reference Range Interpretation [...] glucose = GLUCOSE) normal <100 MG/ DL- [employer] recommendation* * CALCIUM (test [...] GFR) mL/min/1.73m2 mL/min/1.73m2 is considered norm al. [id number] 18:16:00 Test Item Value Reference Range Interpretation Comments LIPASE (test code = LIPA) 95 U/L 23-300 [id number] 18:07:00 Test Item Value Reference Range Interpretation [...] 3.5 K/UL 1.2-7.2 = NEUT) OCCULT BLOOD, VLCQE2622-03-34 06:35:00 Test Item Value Reference Range Interpretation Comments OCCULT BLOOD FECES (test code = NEGATIVE NEGATIVE OCCBLFEC) LOT# CRD (test code = LOT# CRD) 82560 EXP CRD (test code = EXP CRD) 10- LOT# DVL (test code = LOT# DVL) 43491 EXP DVL (test code = EXP DVL) 7- INT QC (test code = INT QC) PASSED [id number] 00:14:00 Test Item Value Reference Range Interpretation [...] glucose = GLUCOSE) normal <100 MG/ DL- [employer] recommendation* * CALCIUM (test [...] GFR) mL/min/1.73m2 mL/min/1.73m2 is considered norm al. [id number] 00:14:00 Test Item Value Reference Range Interpretation Comments LIPASE (test code = LIPA) 134 U/L 23-300 ABDOMEN 2 [id number] 21:18:[address] [id number] IMAGING REPORTPatient Name: Amaris HAYNES of Service: [id number]: 52 Sex: F Order #: [id number] [facility] 1965 [facility] Number: [id number] Record Number: [id number] Hospital Number: [id number] Physician: YANNA GUTIERREZOrdering Physician: Mallika AMY.History: Abdomen pain.Technique: 3 supine and upright abdominal projections were obtained andreviewed.Findings:There is no s pecific acute appearing abdominal abnormality.There is no evidence to suggest obstruction or free air.The osseous structures appear intact. There is rotatory dextroscoliosis ofthe lumbar spine.Impression:No specific acute appearing abdominal abnormalities.Electronically Signed By: Hao Cole M.D., 04/04/2018 9:16 PMLegally authenticated by CLARA Talley 2018-04-04 21:16:02 [id number] 17:07:00 Test Item Value Reference Range Interpretation [...] (test code 5.6 K/UL 1.2-7.2 = NEUT) [id number] 17:06:00 Test Item Value Reference Range Interpretation [...] (test code = UAMICRO) NO CT ABDOMEN/PELVIS [id number] 16:28:[address] [id number] IMAGING REPORTPatient Name: Amaris HAYNES of Service: [id number]: 52 Sex: F Order #: [id number] Room: [facility]: 1965 X-Ray Number: [id number] Record Number: [id number] Hospital Number: [id number] Physician: YANNA GUTIERREZOrdering Physician: DANETTE CLARK ABDOMEN/PELVIS [...] 4:25 PMLegally authenticated by GEORGIA WISEMAN 2018-04-01 16:25:[id number] 14:29:00 Test Item Value Reference Range Interpretation Comments BLOOD TYPE (test code = TYPE) O Rh Positive ANTIBODY SCREEN (test code = NEGATIVE NEGATIVE SCREEN) PROTHROMBIN TIME WITH [id number] 14:13:00 Test Item Value Reference Range Interpretation Comments PROTHROMBIN TIME 12.5 SECONDS 12.0-14.6 INR Usual R john = 2 (test code = PT) to 3 for pr evention of deep vein thrombosis (DVT ) INR (test code = INR) 0.9 [id number] 14:13:00 Test Item Value Reference Range Interpretation Comments PTT (test code = 37.8 SECONDS 24.4-36.3 H HEPARIN THE RAPEUTIC PTT) RANGE 57-92 SEC ONDS [id number] 14:00:00 Test Item Value Reference Range Interpretation [...] glucose = GLUCOSE) normal <100 MG/ DL- [employer] recommendation* * CALCIUM (test [...] GFR) mL/min/1.73m2 mL/min/1.73m2 is considered norm al. [id number] 14:00:00 Test Item Value Reference Range Interpretation Comments LIPASE (test code = LIPA) 40 U/L 23-300 [id number] 13:51:00 Test Item Value Reference Range Interpretation [...] code 8.8 K/UL 1.2-7.2 H = NEUT) [id number] 13:22:00 Test Item Value Reference Range Interpretation [...] (test code = UAMICRO) NO SPINE LUMBAR [id number] 13:32:[address] [id number] IMAGING REPORTPatient Name: Amaris HAYNES of Service: [id number]: 51 Sex: F Order #: [id number] [facility] 1965 [facility] Number: [id number] Record Number: [id number] Hospital Number: [id number] Physician: MICHELLE YEOrdering Physician: LAURENCE HONG SPINE [...] 1:29 PMLegally authenticated by JENNIFER Daniels 2017-10-16 13:29:13BBJEDRHWTD2279-82-15 12:33:00 Test Item Value Reference Range Interpretation [...] BACTERIA (test code = NEGATIVE NONE BACTERIA) 38227& [id number] 06:46:50CHEST 2 VIEWREASON FOR STUDY: [id number]-UNJLLGZWTHD:The heart and mediastinum are within normal limits. Minor linearscarring or atelectasis is noted involving the right infrahilar region.Lungs appear slightly hyperinflated. Bony structures appear intact. . No other significant findings. IMPRESSION: Minor linear scarring or atelectasis involving the right infrahilarregion. Chest is otherwise clear.
[2021-09-12] MEDS ORDERED: MORPHINE 4 MG/ML SYR ONE (08:00)
[2021-09-12] MEDS ORDERED: ONDANSETRON 4 MG/2 ML VIAL ONE (08:00)
[2021-09-12 08:15] LABS: Absolute Lymphocytes (CBC) 2.2 K/uL (0.7-4.9); Hematocrit 37.8 % (36.0-45.0); Lymphocytes % 37.5 % (15.3-44.8); MPV 6.5 fL (7.6-11.3); RBC Red Blood Cell Count 4.28 M/uL (3.86-4.86)
[2021-09-12 08:23] LABS: BUN Blood Urea Nitrogen 16 mg/dL (7-18); Bicarbonate 26 mmol/L (21-32); Glucose Level 105 mg/dL (74-106); Sodium Level 141 mmol/L (136-145)
--- NOTE | 2021-09-12 08:29 | RAD REPORT ---
EXAM DESCRIPTION: CT - Stone Protocol - 09/12/2021 8:14 am CLINICAL HISTORY: retention, abdominal pain, prior back injury and surgery with subsequent bowel and bladder dysfunction; prior cholecystectomy, appendectomy and hysterectomy COMPARISON: Stone Protocol dated 08/17/2021 TECHNIQUE: Axial 3 mm thick images were obtained without oral or IV contrast. The rglil-jg-zhbv span s the entirety of the system including uppermost abdomen and lung bases. All CT scans are performed using dose optimization technique as appropriate and may include automated exposure control or mA/KV adjustment according to patient size. FINDINGS: No suspicious findings the lung bases. No cardiomegaly or pericardial effusion. No hydronephrosis is present and no obstructing ureteral calculi. No suspicious renal masses. Isodens e masses and pyelonephritis are not excluded on a stone protocol CT scan. No significant adrenal find ing. No urinary bladder suspicious finding. Uterus is absent. Small, unremarkable ovaries are identif ied. No adnexal abnormality seen. Imaged portions of the liver, spleen and pancreas show no suspicious findings on non-contrast imaging . Gallbladder is absent. Biliary tree normal size. Stomach is decompressed which accentuates the wall thickness. True gastric wall thickening or edema n ot suspected. No gastric mass. No small bowel abnormality. The appendix is absent. There is a moderat uma large stool volume present filling but not dilating the colon from cecum to the mid sigmoid level . No colon wall mass or wall thickening. No hernia, mass or bulky lymphadenopathy noted. No free air, free fluid or inflammatory stranding. No significant bony abnormality. IMPRESSION: Noncontrast CT abdomen and pelvis imaging shows no acute or emergent finding. Moderately large stool volume filling but not dilating the colon from cecum to mid sigmoid level. No colon wall mass or wall thickening. Isodense masses and pyelonephritis are not excluded on stone protocol technique.
--- NOTE | 2021-09-12 09:19 | RAD REPORT ---
EXAM DESCRIPTION: MRI - Lumbar Spine Con - 09/12/2021 8:53 am CLINICAL HISTORY: Pain;Numbness/tingling COMPARISON: Lumbar Spine Wo Con dated 12/23/2019 TECHNIQUE: Sagittal T1-weighted, T2-weighted and T2-STIR weighted sequences were obtained. Axial T1 -weighted and heavily T2-weighted sequenceswere obtained through the lumbar disc levels. FINDINGS: Lumbar bodies are normal in height. Very slight retrolisthesis present L2 on L3. There is a degenerative scoliotic curvature in the spine with a right convexity in the upper lumbar spine and the left convexity in the lower lumbar spine. No pathologic marrow process seen. Hypointense T1 and h yperintense T2 signal is present in the mid and left lateral aspect of the L2 and L3 vertebrae abutti ng the endplates. A similar but less extensive marrow edema degenerative signal pattern is present in the right lateral aspect of the L4 and L5 bodies abutting the L4-5 disc space. Conus is normal with no clumping or thickening of the cauda equina. T12-L1 level: No significant findings. L1-2 level: No significant findings. L2-3 level: Disc desiccation and loss in disc height noted. Prominent protrusion of disc material is seen across the central canal and into each exit foramen. This protrusion or broad-based disc herniat ion is similar to the December 2019 exam. The degenerative marrow edema pattern is much more pronounced. Loss in disc height is progressive. Facet joint degenerative changes are present but relatively mild. This causes mild compression of the lateral aspects of the thecal sac. No overall central spinal corey nosis. AP diameter is 14 mm in the midline. Transverse diameter is 10 mm. Mild right-sided foraminal stenosis is present with ample perineural fat. Patient has very pronounced left foraminal stenosis wi th effacement of the perineural fat. L3-4 level: Mild desiccation changes are present with no herniation or significant disc bulge in the central canal. Foraminal disc bulge changes are mild. Mild ligamentous thickening seen. No central sp inal stenosis or significant foraminal encroachment. L4-5 level: Disc is desiccated. Mild disc bulge seen across the central canal and into each exit fora men. Ligamentous thickening is seen with mild facet degenerative changes. Canal is borderline stenoti c at 10 mm. Disc protrusion, endplate spurring and facet degenerative change cause moderately severe right foraminal stenosis and no significant left foraminal stenosis. Very little right-side perineura l fat remains. L5-S1 level: Disc is desiccated. There is been height loss posteriorly. Left laminectomy surgical vanna nges are noted. The herniation has been removed since the prior study. There is a remnant broad-based bulging of disc material across the central canal and into each exit foramen. Facet degenerative vanna nges are present. Central canal is 10 mm in diameter. The thecal sac has tapered significantly by thi s level. Disc bulge, endplate spurring and facet degenerative changes cause moderate right foraminal stenosis with only a small amount of perineural fat remaining. Moderate left foraminal stenosis is pr esent from the same process. IMPRESSION: Borderline to mild central spinal stenosis L4-5 (9-10 mm central canal) from disc bulge, facet hypertrophy and ligamentous thickening. L4-5 left laminectomy surgical changes with remnant bulging of disc material in the central canal. Th e canal is only 10 mm but the thecal sac has significantly tapered. Significant active marrow degenerative change in the vertebrae abutting the L2-3 endplates. This has progressed from 2020. The amount of protruding disc material in the central canal and exit foramina h as not changed significantly. Patient has significant multilevel foraminal stenoses detailed at each level in the body of the repor t.
[2021-09-12 10:06] LABS: Urine Blood Negative (Negative); Urine Glucose Negative (Negative); Urine Protein Negative (Negative); Urine Specific Gravity 1.025 (1.005-1.030); Urine pH 5.5 (5.0-7.0)
[2021-09-12 10:08] LABS: Urine Bacteria 20-50 /HPF (<20); Urine RBC <5 /HPF (NONE SEEN)
--- NOTE | 2021-09-12 10:53 | EDPHYS ---
Physician Documentation [facility] Name: Bárbara Beebe Age: 55 yrs Sex: Female : 1965 Arrival Date: 09/12/2021 Time: 07:02 Bed 13 Private MD: SILVA Physician Stew Bolaños HPI: 09/12 10:45 This 55 yrs old Female presents to ER via Ambulatory with complaints of Urinary kb Retention, Constipation, Back Pain, Abdominal Pain. 10:45 The patient presents with pain that is chronic. The symptoms are located in the low kb back. The pain does not radiate. The problem was sustained from a chronic condition. Onset: The symptoms/episode began/occurred 1 month(s) ago. Modifying factors: The patient symptoms are alleviated by nothing, the patient symptoms are aggravated by any movement. Associated signs and symptoms: Pertinent positives: constipation, urinary retention. Severity of symptoms: At their worst the symptoms were moderate, in the emergency department the symptoms are unchanged. The patient has not experienced similar symptoms in the past. The patient has been recently seen by a physician: the patient's primary care provider. Pt reports chronic back pain since having back surgery 2 years ago. States the pain has been worse over the last month. States she has been having constipation and difficulty urinating for 6 weeks. Went to PCP and was told she needed a MRI and told her to follow up with her spine surgeon. Came in today because the pain is worse with radiation down left leg. Concerned that she is having issues with her spine because of the inability to have a normal BM. . Historical: - Allergies: 07:16 UNKNOWN STEROID; ap3 - Home Meds: 07:13 methocarbamol 750 mg Oral tab 1 tab 3 times per day [Active]; gabapentin 300 mg Oral ap3 cap 1 cap 3 times per day [Active]; Lunesta 3 mg Oral tab 1 tab once daily [Active]; losartan 100 mg Oral tab 1 tab once daily [Active]; tramadol 50 mg Oral TbDi 50 mg every 8 hours for pain [Active]; - PMHx: 07:13 psoriasis; Hypertension; Crohn's; COPD; bleeding ulcers; ap3 - PSHx: 07:13 Appendectomy; back sx; Cholecystectomy; hysterectomy; ap3 - Immunization history:: Client reports having NOT received the Covid vaccine. Flu vaccine is up to date. - Social history:: Smoking status: Reported history of juuling and/or vaping. ROS: 10:38 Constitutional: Negative for fever, chills, and weight loss. kb 10:38 Abdomen/GI: Positive for constipation, Negative for abdominal pain, nausea, vomiting, and diarrhea. 10:38 Back: Positive for pain at rest, pain with movement, of the low back area. 10:38 : Positive for difficulty urinating. 10:38 All other systems are negative. Exam: 10:45 Constitutional: This is a well developed, well nourished patient who is awake, alert, kb and in no acute distress. Head/Face: Normocephalic, atraumatic. ENT: Moist Mucous membranes Respiratory: Respirations even and unlabored. No increased work of breathing. Talking in full sentences Abdomen/GI: Soft, non-tender. No distention Skin: Warm, dry with normal turgor. Normal color. MS/ Extremity: Pulses equal, no cyanosis. Neurovascular intact. Full, normal range of motion. Neuro: Awake and alert, GCS 15, oriented to person, place, time, and situation. Moves all extremities. Normal gait. Psych: Awake, alert, with orientation to person, place and time. Behavior, mood, and affect are within normal limits. 10:45 Back: pain, that is moderate, ROM is painful, normal spinal alignment noted. Vital Signs: 07:09 BP 134 / 87; Pulse 96; Resp 18; Temp 97.9; Pulse Ox 98% ; Weight 75.3 kg; Height 5 ft. ap3 2 in. (157.48 cm); Pain 8/10; 10:25 BP 129 / 84; Pulse 79; Resp 18; Temp 98.4; Pulse Ox 99% ; Pain 2/10; cb5 07:09 Body Mass Index 30.36 (75.30 kg, 157.48 cm) ap3 MDM: 07:18 Patient medically screened. kb 10:41 Data reviewed: vital signs, nurses notes. Data interpreted: Pulse oximetry: on room air kb is 98 %. Interpretation: normal. Counseling: I had a detailed discussion with the patient and/or guardian regarding: the historical points, exam findings, and any diagnostic results supporting the discharge/admit diagnosis, lab results, radiology results, the need for outpatient follow up, a neurosurgeon, to return to the emergency department if symptoms worsen or persist or if there are any questions or concerns that arise at home. 09/12 07:43 Order name: Basic Metabolic Panel; Complete Time: 08:35 kb 09/12 07:43 Order name: CBC with Diff; Complete Time: 08:20 kb 09/12 07:43 Order name: CT Stone Protocol; Complete Time: 08:35 kb 09/12 07:43 Order name: Urine Microscopic Only; Complete Time: 10:18 kb 09/12 10:06 Order name: Urine Dipstick-Ancillary; Complete Time: 10:18 EDMS 09/12 10:09 Order name: Urine Culture EDMS 09/12 07:19 Order name: Bladder Scanner; Complete Time: 07:45 kb 09/12 07:43 Order name: IV Saline Lock; Complete Time: 08:01 kb 09/12 07:43 Order name: Labs collected and sent; Complete Time: 08:01 kb 09/12 07:43 Order name: Urine Dipstick-Ancillary (obtain specimen); Complete Time: 10:07 kb 09/12 07:43 Order name: MRI Lumbar Spine wo Con; Complete Time: 09:28 kb Administered Medications: 08:01 Drug: morphine 4 mg Route: IVP; Site: right antecubital; cb5 08:01 Drug: Zofran (Ondansetron) 4 mg Route: IVP; Site: right antecubital; cb5 10:58 Drug: Dulcolax (bisacodyl) Delayed Release Tablet 5 mg Route: PO; cb5 Disposition Summary: 09/12/21 10:51 Discharge Ordered Location: Home kb Condition: Stable kb Diagnosis - Constipation kb - Low back pain - chronic kb Followup: kb - With: Emergency Department - When: As needed - Reason: Worsening of condition Followup: kb - With: Private Physician - When: 2 - 3 days - Reason: Recheck today's complaints, Continuance of care, Re-evaluation by your physician Discharge Instructions: - Discharge Summary Sheet kb - Constipation, Adult, [id number] kb - Chronic Back Pain, [id number] kb Forms: - Medication Reconciliation Form kb - Thank You Letter kb - Antibiotic Education kb - Prescription Opioid Use kb Addendum: 09/14/2021 22:43 Co-signature as Attending Physician, Stew anna h7 Signatures: [facility] Delilah Arce, FURNITURE MECHANIC-C FURNITURE MECHANIC-Ckb Fabiana Phan, RN RN ap3 Stew Bolaños MD MD [id number] Denise Garvey, RN RN cb5
--- NOTE | 2021-09-12 10:53 | ER ---
Nurse's Notes [facility] Name: Bárbara Beebe Age: 55 yrs Sex: Female : 1965 Arrival Date: 09/12/2021 Time: 07:02 Bed 13 Private MD: Diagnosis: Constipation;Low back pain-chronic Presentation: 09/12 07:09 Chief complaint: Patient states: she was evaluated in the ED last week, but is having ap3 worsening in symptoms. Patient reports that she feels her bladder is full, but can't urinate. She also states that she is having a hard time passing her bowels. She reports waking up this morning in a deep sweat from the discomfort. She says that 2 years ago she broke her back, which required emergency surgery due to the injury causing her to have loss of control of her bowels. Patient is concerned of the symptoms, as she can't see a urologist until October, and has yet to hear back from the spinal surgeon. Coronavirus screen: At this time, the client does not indicate any symptoms associated with coronavirus-19. Ebola Screen: No symptoms or risks identified at this time. Initial Sepsis Screen: Does the patient meet any 2 criteria? No. Patient's initial sepsis screen is negative. Does the patient have a suspected source of infection? No. Patient's initial sepsis screen is negative. Risk Assessment: Do you want to hurt yourself or someone else? Patient reports no desire to harm self or others. Onset of symptoms was September 06, 2021. 07:09 Method Of Arrival: Ambulatory ap3 07:09 Acuity: ANGELA 3 ap3 Triage Assessment: 07:15 General: Appears uncomfortable, Behavior is cooperative, restless. Pain: Complains of ap3 pain in back and abdomen Pain radiates to right leg and left leg Pain currently is 8 out of 10 on a pain scale. Neuro: Level of Consciousness is awake, alert, obeys commands, Oriented to person, place, time, situation, Appropriate for age. Cardiovascular: Patient's skin is warm and dry. Respiratory: Airway is patent. GI: Reports constipation. : Reports inability to void. Historical: - Allergies: 07:16 UNKNOWN STEROID; ap3 - Home Meds: 07:13 methocarbamol 750 mg Oral tab 1 tab 3 times per day [Active]; gabapentin 300 mg Oral ap3 cap 1 cap 3 times per day [Active]; Lunesta 3 mg Oral tab 1 tab once daily [Active]; losartan 100 mg Oral tab 1 tab once daily [Active]; tramadol 50 mg Oral TbDi 50 mg every 8 hours for pain [Active]; - PMHx: 07:13 psoriasis; Hypertension; Crohn's; COPD; bleeding ulcers; ap3 - PSHx: 07:13 Appendectomy; back sx; Cholecystectomy; hysterectomy; ap3 - Immunization history:: Client reports having NOT received the Covid vaccine. Flu vaccine is up to date. - Social history:: Smoking status: Reported history of juuling and/or vaping. Screenin:16 Abuse screen: Denies threats or abuse. Nutritional screening: No deficits noted. ap3 Tuberculosis screening: No symptoms or risk factors identified. Fall Risk None identified. No fall in past 12 months (0 pts). Assessment: 07:20 General: Appears uncomfortable, slender, well groomed, Behavior is cooperative, cb5 anxious, crying. Pain: Complains of pain in left leg and abdomen and back Pain currently is 7 out of 10 on a pain scale. Quality of pain is described as shooting, tingling, numb. Neuro: No deficits noted. Level of Consciousness is awake, alert, obeys commands, Oriented to person, place, time, Appropriate for age. Cardiovascular: No deficits noted. Respiratory: No deficits noted. GI: Bowel sounds present X 4 quads. Abd is soft and non tender X 4 quads. : Reports pt states sometimes she doesn't feel the sensation to void but is able to. EENT: No deficits noted. Derm: No deficits noted. Musculoskeletal: Reports weakness in left leg numbness in left leg and back. 07:50 General: pt left ER dept via w/c to have MRI. cb5 08:52 General: waiting for patient to return back to room to re-assess pain. . cb5 08:52 General: pt is currently having MRI. cb5 09:10 Pain: Pain currently is 3 out of 10 on a pain scale. cb5 09:28 General: pt was able to ambulate to the bathroom and back without distress.. cb5 09:30 Reassessment: No changes from previously documented assessment. Patient is alert, cb5 oriented x 3, equal unlabored respirations, skin warm/dry/pink. 10:30 Reassessment: Patient and/or family updated on plan of care and expected duration. Pain cb5 level reassessed. Patient is alert, oriented x 3, equal unlabored respirations, skin warm/dry/pink. Vital Signs: 07:09 BP 134 / 87; Pulse 96; Resp 18; Temp 97.9; Pulse Ox 98% ; Weight 75.3 kg; Height 5 ft. ap3 2 in. (157.48 cm); Pain 8/10; 10:25 BP 129 / 84; Pulse 79; Resp 18; Temp 98.4; Pulse Ox 99% ; Pain 2/10; cb5 07:09 Body Mass Index 30.36 (75.30 kg, 157.48 cm) ap3 ED Course: 07:02 Patient arrived in ED. as 07:13 Triage completed. ap3 07:16 Arm band placed on right wrist. ap3 07:17 Delilah Perez [facility]C [facility] kb 07:17 Stew Bolaños MD is Attending Physician. kb 07:20 Patient has correct armband on for positive identification. Call light in reach. Side cb5 rails up X 1. 07:45 Denise Garvey, RN is Primary Nurse. cb5 08:01 Basic Metabolic Panel Sent. cb5 08:01 CBC with Diff Sent. cb5 08:14 CT Stone Protocol In Process Unspecified. EDMS 08:19 No provider procedures requiring assistance completed. cb5 08:53 MRI Lumbar Spine wo Con In Process Unspecified. EDMS 11:15 IV discontinued. cb5 Administered Medications: 08:01 Drug: morphine 4 mg Route: IVP; Site: right antecubital; cb5 08:01 Drug: Zofran (Ondansetron) 4 mg Route: IVP; Site: right antecubital; cb5 10:58 Drug: Dulcolax (bisacodyl) Delayed Release Tablet 5 mg Route: PO; cb5 Outcome: 10:51 Discharge ordered by . kb 11:15 Discharged to home with family. cb5 11:15 Condition: stable 11:15 Discharge instructions given to patient. 11:15 Patient left the ED. cb5 Signatures: Dispatcher [employer] EDMS Delilah Perez FNP-C FNP-Gudelia Brewer as Fabiana Phan, RN RN ap3 Denise Garvey, RN RN cb5
[2021-09-12] MEDS ORDERED: BISACODYL E.C. 5 MG TAB PO ONE (10:58)
[2021-09-12 11:22] VITALS: BP 129/84; TEMP 98.4; O2SAT 99
== END 2021-09-12 11:15 | disposition home or self-care (01) ==
LOC: ER 07:01
DX: M54.50 Low back pain, unspecified (principal); R33.9 Retention of urine, unspecified; I10 Essential (primary) hypertension; Z88.8 Allergy status to other drugs, medicaments and biological substances
CPT/HCPCS: 87088; 85025; 87086; 80048; 36415; 76377; 74176; 72148; 96375; 96374; 99283; J2405; 81003; 81015

== ENCOUNTER 2022-07-28 14:56 | Emergency (ER) | payer OTHER ==
--- OUTSIDE RECORDS SUMMARY | 2022-07-28 15:03 | XMS REPORT | Continuity of Care Document ---
:1965 Author Organization [facility] [place] t Address [address] [place] [address] Care Team Providers Name Role Phone Heron Anderson Jr. Primary Care Physician [phone] Francisco Sharma DO Attending Clinician Federico Qureshi Attending Clinician Unavailable Mohit Gaston DO Attending Clinician QIAN ANDRADE Attending Clinician Unavailable Qian Andrade MD Attending Clinician BAHMAN DOWNEY Attending Clinician Unavailable Bahman Downey MD Attending Clinician Doctor Unassigned, [place] Attending Clinician Unavailable Clinic, Neurosurgery Resident Attending Clinician UnavailMichaela Gomez Attending Clinician Jenelle Guardado DO Attending Clinician Eduin Bansal MD Attending Clinician Ilsa Johnson MD Attending Clinician Avis WEBB, Shin Attending Clinician Yadi Hart Attending Clinician YADI GUTIERREZ Attending Clinician Unavailable Heron Anderson Admitting Clinician Unavailable Alex WEBB, Ilsa Admitting Clinician Payers Payer Name Policy Type Policy Number Effective Date Expiration Date S ource Problems Condition Condition Condition Status Onset Resolution Last Treating Co mments Source Name Details Category Date Date Treatment Clinician Date Lumbar Lumbar Disease Active Univers stenosis stenosis 706 ity of with with 00:00: [place] neurogenic neurogenic 00 Me dical claudicati claudicati Br anch on on Perforated Perforated Disease Active U nivers ulcer ulcer 03-29 ity of 00:00: [place] 00 Medical Branch Melena Melena Disease Active Overview: Univer s 03-29 Added ity of 00:00: automatic 00 ally from Medical request Branch for surgery [id number] Allergies, Adverse Reactions, Alerts Allergy Allergy Status Severity Reaction(s) Onset Inactive Treating Comm ents Source Name Type Date Date Clinician sucralfa FA Active U 2020-07 [facility] te 0-22 [place] 00:00: d 00 [facility] No Known DA Active U 2020-07 [facility] Allergie 0-22 [place] 00:[facility]: d 00 [facility] sucralfa FA Active U Rash 2020-07 [facility] te 0[facility] [place] [facility]: d [facility] No Known DA Active U 2020-07 [facility] Allergie 0-22 [place] 00:[facility]: d [facility] NO KNOWN Drug Active Univers ALLERGIE Class ity of S [facility] Social History Social Habit Start Date Stop Date Quantity Comments Source History of Cigarette Smoker Universi ty of tobacco use [facility] Exposure to Not sure University of SARS-CoV-2 [facility] (event) Branch Tobacco use and 2020-03-02 2020-03-02 Never used Universit y of exposure 00:00:00 00:00:00 [facility] Alcohol intake 2020-03-02 2020-03-02 Current University of 00:00:00 00:00:00 non-drinker of [facility] alcohol (finding) Branch Tobacco Comment 2020-01-21 2020-01-21 1/2 pack a day Unive rsity of 00:00:00 00:00:00 [facility] Sex Assigned At [birth year] [facility] 00:[facility] 00:00:00 Smoking Status Start Date Stop Date Source Tobacco smoking consumption [facility] unknown Current every day smoker 2020-03-02 00:00:00 [facility] Medical Branch Medications Ordered Filled Start Stop Current Ordering Indication Dosage Frequency Signature Comments Components Source Medication Medication Date Date Medication? Clinician (SIG) Name Name gabapentin 2019-0 2020- No [id number] 600mg Take 1 Univers 600 mg 8-04 11-03 tablet by ity of tablet 00:00: 05:59 mouth 3 [place] 00 :00 (three) Medical times Branch daily for 90 days. cyclobenzap 2019- 2020- No [id number] 10mg Take 1 Univers rine 10 mg 8-04 11-03 tablet by ity of tablet 00:00: 05:59 mouth 3 [place] 00 :00 (three) Medical times Branch daily for 90 days. gabapentin 2019- 2020- No [id number] 600mg Take 1 Univers 600 mg 8-04 11-03 tablet by ity of tablet 00:00: 05:59 mouth 3 [place] 00 :00 (three) Medical times Branch daily for 90 days. cyclobenzap 2019-2019- No [id number] 10mg Take 1 Univers rine 10 mg 8-04 11-03 tablet by ity of tablet 00:00: 05:59 mouth 3 [place] 00 :00 (three) Medical times Branch daily for 90 days. gabapentin 2019-0 2020- No [id number] 600mg Take 1 Univers 600 mg 8-04 11-03 tablet by ity of tablet 00:00: 05:59 mouth 3 [place] 00 :00 (three) Medical times Branch daily for 90 days. cyclobenzap 2019-0 2020- No [id number] 10mg Take 1 Univers rine 10 mg 8-04 11-03 tablet by ity of tablet 00:00: 05:59 mouth 3 [place] 00 :00 (three) Medical times Branch daily for 90 days. gabapentin 2020-0 2020- No [id number] 600mg Take 1 Univers 600 mg 8-04 11-03 tablet by ity of tablet 00:00: 05:59 mouth 3 [place] 00 :00 (three) Medical times Branch daily for 90 days. cyclobenzap 2019-0 2020- No [id number] 10mg Take 1 Univers rine 10 mg 8-04 11-03 tablet by ity of tablet 00:00: 05:59 mouth 3 [place] 00 :00 (three) Medical times Branch daily for 90 days. gabapentin 2020-0 2020- No [id number] 600mg Take 1 Univers 600 mg 8-04 11-03 tablet by ity of tablet 00:00: 05:59 mouth 3 [place] 00 :00 (three) Medical times Branch daily for 90 days. cyclobenzap 2020-0 2020- No [id number] 10mg Take 1 Univers rine 10 mg 8-04 11-03 tablet by ity of tablet 00:00: 05:59 mouth 3 [place] 00 :00 (three) Medical times Branch daily for 90 days. gabapentin 2020-0 2020- No [id number] 600mg Take 1 Univers 600 mg 8-04 11-03 tablet by ity of tablet 00:00: 05:59 mouth 3 [place] 00 :00 (three) Medical times Branch daily for 90 days. cyclobenzap 2020-0 2020- No [id number] 10mg Take 1 Univers rine 10 mg 8-04 11-03 tablet by ity of tablet 00:00: 05:59 mouth 3 [place] 00 :00 (three) Medical times Branch daily for 90 days. gabapentin 2020-0 2020- No [id number] 600mg Take 1 Univers 600 mg 8-04 11-03 tablet by ity of tablet 00:00: 05:59 mouth 3 [place] 00 :00 (three) Medical times Branch daily for 90 days. cyclobenzap 2020-0 2020- No [id number] 10mg Take 1 Univers rine 10 mg 8-04 11-03 tablet by ity of tablet 00:00: 05:59 mouth 3 [place] 00 :00 (three) Medical times Branch daily for 90 days. gabapentin 2020-0 2020- No [id number] 600mg Take 1 Univers 600 mg 8-04 11-03 tablet by ity of tablet 00:00: 05:59 mouth 3 [place] 00 :00 (three) Medical times Branch daily for 90 days. cyclobenzap 2020-0 2020- No [id number] 10mg Take 1 Univers rine 10 mg 8-04 11-03 tablet by ity of tablet 00:00: 05:59 mouth 3 [place] 00 :00 (three) Medical times Branch daily for 90 days. gabapentin 2020-0 2020- No [id number] 600mg Take 1 Univers 600 mg 8-04 11-03 tablet by ity of tablet 00:00: 05:59 mouth 3 [place] 00 :00 (three) Medical times Branch daily for 90 days. cyclobenzap 2020-0 2020- No [id number] 10mg Take 1 Univers rine 10 mg 8- 11-03 tablet by ity of tablet 00:00: 05:59 mouth 3 [place] 00 :00 (three) Medical times Branch daily for 90 days. gabapentin 2020-0 2019- No [id number] 600mg Take 1 Univers 600 mg 8-04 11-03 tablet by ity of tablet 00:00: 05:59 mouth 3 [place] 00 :00 (three) Medical times Branch daily for 90 days. cyclobenzap 2020-0 2019- No [id number] 10mg Take 1 Univers rine 10 mg 8-04 11-03 tablet by ity of tablet 00:00: 05:59 mouth 3 [place] 00 :00 (three) Medical times Branch daily for 90 days. gabapentin 2020-0 2019- No [id number] 600mg Take 1 Univers 600 mg 8-10 29-03 tablet by ity of tablet 00:00: 05:59 mouth 3 [place] 00 :00 (three) Medical times Branch daily for 90 days. cyclobenzap 2019-2019- No [id number] 10mg Take 1 Univers rine 10 mg 8-10 29- tablet by ity of tablet 00:00: 05:59 mouth 3 [place] 00 :00 (three) Medical times Branch daily for 90 days. methylPREDN 2020-0 Yes [id number] Take by Univers ISolone 7-30 mouth ity of (MEDROL, 00:00: SEE-INSTRU [place] NGA,) 4 mg 00 CTIONS. Medica l tablets follow Branch package directions methylPREDN 2020-0 Yes [id number] Take by Univers ISolone 7-30 mouth ity of (MEDROL, 00:00: SEE-INSTRU [place] NGA,) 4 mg 00 CTIONS. Medica l tablets follow Branch package directions methylPREDN 2020-0 Yes [id number] Take by Univers ISolone 7-30 mouth ity of (MEDROL, 00:00: SEE-INSTRU [place]GA,) 4 mg 00 CTIONS. Medica l tablets follow Branch package directions methylPREDN 2020-0 Yes [id number] Take by Univers ISolone 7-30 mouth ity of (MEDROL, 00:00: SEE-INSTRU [place]GA,) 4 mg 00 CTIONS. Medica l tablets follow Branch package directions methylPREDN 2020-0 Yes [id number] Take by Univers ISolone 7-30 mouth ity of (MEDROL, 00:00: SEE-INSTRU [place]GA,) 4 mg 00 CTIONS. Medica l tablets follow Branch package directions methylPREDN 2020-0 Yes [id number] Take by Univers ISolone 7-30 mouth ity of (MEDROL, 00:00: SEE-INSTRU [place]GA,) 4 mg 00 CTIONS. Medica l tablets follow Branch package directions methylPREDN 2020-0 Yes [id number] Take by Univers ISolone 7-30 mouth ity of (MEDROL, 00:00: SEE-INSTRU [place]GA,) 4 mg 00 CTIONS. Medica l tablets follow Branch package directions methylPREDN 2020-0 Yes [id number] Take by Univers ISolone 7-30 mouth ity of (MEDROL, 00:00: SEE-INSTRU [place]GA,) 4 mg 00 CTIONS. Medica l tablets follow Branch package directions methylPREDN 2020-0 Yes [id number] Take by Univers ISolone 7-30 mouth ity of (MEDROL, 00:00: SEE-INSTRU [place]GA,) 4 mg 00 CTIONS. Medica l tablets follow Branch package directions methylPREDN 2020-0 Yes [id number] Take by Univers ISolone 7-30 mouth ity of (MEDROL, 00:00: SEE-INSTRU [place]GA,) 4 mg 00 CTIONS. Medica l tablets follow Branch package directions methylPREDN 2020-0 Yes [id number] Take by Univers ISolone 7-30 mouth ity of (MEDROL, 00:00: SEE-INSTRU [place] NGA,) 4 mg 00 CTIONS. Medica l tablets follow Branch package directions methylPREDN 2020-0 Yes [id number] Take by Univers ISolone 7-30 mouth ity of (MEDROL, 00:00: SEE-INSTRU [place] NGA,) 4 mg 00 CTIONS. Medica l tablets follow Branch package directions methylPREDN 2020-0 Yes [id number] Take by Univers ISolone 7-30 mouth ity of (MEDROL, 00:00: SEE-INSTRU [place] NGA,) 4 mg 00 CTIONS. Medica l tablets follow Branch package directions heparin 2020-0 Yes 5000U 5,000 Univers (porcine) 7-11 Units, ity of injection 01:00: [place] 5,000 Units 00 us, BID, Medi niranjan First dose Branch on Fri01/28/20 at 1999, Until Discontinu ed, Routine traZODone 2020-0 Yes [...] ity of tablet 20:46: as needed [place] for Medical Insomnia. Branch traZODone 2020-0 Yes [...] ity of tablet 20:46: as needed [place] for Medical Insomnia. Branch traZODone 2020-0 Yes 50mg Take 50 mg Un satinder 50 mg 7-10 by mouth ity of tablet 20:46: as needed [place] [id number] for Medical Insomnia. Branch traZODone 2020-0 Yes 50mg Take 50 mg Un satinder 50 mg 7-10 by mouth ity of tablet 20:46: as needed [place] [address] for Medical Insomnia. Branch traZODone 2020-0 Yes 50mg Take 50 mg Un satinder 50 mg 7-10 by mouth ity of tablet 20:46: as needed [place] [address] for Medical Insomnia. Branch traZODone 2020-0 Yes 50mg Take 50 mg Un satinder 50 mg 7-10 by mouth ity of tablet 20:46: as needed [place] [address] for Medical Insomnia. Campus pneumococca 2020-0 2020- No .5mL 0.5 mL, Un satinder l vac 7- 07-10 Intramuscu ity of polyvalent 19:30: 20:00 lar, ONCE, [place] (PNEUMOVAX- 00 :00 1 dose, Medic al 23) Fri Branch injection 01/28/20 at 0.5 mL 1430, Routine cyclobenzap 2020-0 Yes [id number] 5mg Take 1 Univers rine 5 mg 7-10 tablet by ity o f tablet 00:00: mouth 3 [place] 00 (three) Medical times Branch daily. cyclobenzap 2020-0 Yes [id number] 5mg Take 1 Univers rine 5 mg 7-10 tablet by ity o f tablet 00:00: mouth 3 [place] 00 (three) Medical times Branch daily. cyclobenzap 2020-0 Yes [id number] 5mg Take 1 Univers rine 5 mg 7-10 tablet by ity o f tablet 00:00: mouth 3 00 (three) Medical times Branch daily. cyclobenzap 2020-0 Yes [id number] 5mg Take 1 Univers rine 5 mg 7-10 tablet by ity o f tablet 00:00: mouth 3 00 (three) Medical times Branch daily. cyclobenzap 2020-0 Yes [id number] 5mg Take 1 Univers rine 5 mg 7-10 tablet by ity o f tablet 00:00: mouth 3 00 (three) Medical times Branch daily. cyclobenzap 2020-0 Yes [id number] 5mg Take 1 Univers rine 5 mg 7-10 tablet by ity o f tablet 00:00: mouth 3 00 (three) Medical times Branch daily. cyclobenzap 2020-0 Yes [id number] 5mg Take 1 Univers rine 5 mg 7-10 tablet by ity o f tablet 00:00: mouth 3 00 (three) Medical times Branch daily. cyclobenzap 2020-0 Yes [id number] 5mg Take 1 Univers rine 5 mg 7-10 tablet by ity o f tablet 00:00: mouth 3 (three) Medical times Branch daily. cyclobenzap 2020-0 Yes [id number] 5mg Take 1 Univers rine 5 mg 7-10 tablet by ity o f tablet 00:00: mouth 3 00 (three) Medical times Branch daily. cyclobenzap 2020-0 Yes [id number] 5mg Take 1 Univers rine 5 mg 7-10 tablet by ity o f tablet 00:00: mouth 3 00 (three) Medical times Branch daily. cyclobenzap 2020-0 Yes [id number] 5mg Take 1 Univers rine 5 mg 7-10 tablet by ity o f tablet 00:00: mouth 3 00 (three) Medical times Branch daily. cyclobenzap 2020-0 Yes [id number] 5mg Take 1 Univers rine 5 mg 7-10 tablet by ity o f tablet 00:00: mouth 3 00 (three) Medical times Branch daily. cyclobenzap 2020-0 Yes [id number] 5mg Take 1 Univers rine 5 mg 7-10 tablet by ity o f tablet 00:00: mouth 3 00 (three) Medical times Branch daily. cyclobenzap 2020-0 Yes [id number] 5mg Take 1 Univers rine 5 mg 7-10 tablet by ity o f tablet 00:00: mouth 3 [place] 00 (three) Medical times Branch daily. cyclobenzap 2020-0 Yes [id number] 5mg Take 1 Univers rine 5 mg 7-10 tablet by ity o f tablet 00:00: mouth 3 [place] 00 (three) Medical times Branch daily. cyclobenzap 2020-0 Yes [id number] 5mg Take 1 Univers rine 5 mg 7-10 tablet by ity o f tablet 00:00: mouth 3 [place] 00 (three) Medical times Branch daily. cyclobenzap 2020-0 Yes [id number] 5mg Take 1 Univers rine 5 mg 7-10 tablet by ity o f tablet 00:00: mouth 3 00 (three) Medical times Branch daily. cyclobenzap 2020-0 Yes [id number] 5mg Take 1 Univers rine 5 mg 7-10 tablet by ity o f tablet 00:00: mouth 3 00 (three) Medical times Branch daily. cyclobenzap 2020-0 Yes [id number] 5mg Take 1 Univers rine 5 mg 7-10 tablet by ity o f tablet 00:00: mouth 3 [place] 00 (three) Medical times Branch daily. cyclobenzap 2020-0 Yes [id number] 5mg Take 1 Univers rine 5 mg 7-10 tablet by ity o f tablet 00:00: mouth 3 00 (three) Medical times Branch daily. HYDROcodone [...] 1{tbl} Take 1 U nivers -acetaminop 7-10 -18 tablet by it y of hen 5-325 00:00: 04:59 mouth [place] mg tablet 00 :00 every 6 Medical (six) Branch hours as needed for Pain (scale 4-6) or Pain (scale 7-10) for up to 7 days. Indication s: acute pain HYDROcodone 2020-0 2020- No [id number] 1{tbl} Take 1 U nivers -acetaminop 7-10 -18 tablet by it y of hen 5-325 00:00: 04:59 mouth [place] mg tablet 00 :00 every 6 Medical (six) Branch hours as needed for Pain (scale 4-6) or Pain (scale 7-10) for up to 7 days. Indication s: acute pain HYDROcodone 2020-0 2020- No [id number] 1{tbl} Take 1 U nivers -acetaminop 7-10 -18 tablet by it y of hen 5-325 00:00: 04:59 mouth [place] mg tablet 00 :00 every 6 Medical (six) Branch hours as needed for Pain (scale 4-6) or Pain (scale 7-10) for up to 7 days. Indication s: acute pain morpHINE 2019-0 Yes 4mg 4 mg, Slow Uni vers injection 4 01-26 IV Push, ity of mg 23:20: Q3HPRN, [place] 12 Starting Medical Sadaf 01/27/20 Branch at 1820, Until Discontinu ed, Routine, severe pain not controlled by tylenol acetaminoph 2019-0 Yes 650mg 650 mg, Un satinder en 01-26 Oral, ity of (TYLENOL) 23:18: Q6HPRN, [place] tablet 650 26 Starting Medic al mg [facility] 01/27/20 Branch at 1818, Until Discontinu ed, Routine, Pain (scale 1-3), Temp > 38.5 C ceFAZolin 2019-0 2020- No 1000mg 1,000 mg, Univers (ANCEF) 01-26 IV ity of 1,000 mg in 23:15: 23:14 Piggyback, [place] NaCl 0.9% 00 :00 Q8H ABX, 3 [...] Sadaf Med ical tablet 1 01/27/20 at Branch tablet 1745, Routine, PACU HYDROmorpho 2020-0 2020- No .2mg 0.2 mg, Un satinder ne 01-26 Slow IV ity of (DILAUDID) 22:32: 23:48 [...] 1 00 over 24 Medical Patch Hours, Branch Q24H, First dose on Fri01/26/20 at 1715, Until Discontinu ed, Routine diphenhydrA 2019-0 Yes 25mg 25 mg, Univ ers MINE 01-24 Oral, ity of (BENADRYL) 17:05: Q6HPRN, [place] tablet 25 56 Starting Medica l mg Fri01/25/20 Branch at 1205, Until Discontinu ed, Routine, Itching docusate 2020-0 Yes 100mg 100 mg, Unive rs (COLACE) 01-24 Oral, ity of capsule 100 14:00: DAILY, [place] mg 00 First dose Medical on Fri Campus 01/25/20 at 0900, Until Discontinu ed, Routine pantoprazol 2020-0 Yes 40mg 40 mg, Univ ers e 01-24 Oral, BID, ity of (PROTONIX) 01:00: First dose [place] EC tablet 00 on Fri Medical 40 mg 01/24/20 at Branch 1999, Until Discontinu ed, Routine gabapentin 2020-0 Yes 300mg 300 mg, Uni vers (NEURONTIN) 7-07 Oral, TID, it y of capsule 300 01:00: First dose [place] mg 00 on [facility] Medical 01/24/20 at Branch 2000, Until Discontinu ed, Routine NaCl 0.9% 2020-0 Yes 1000mL at 50 Unive rs (NS) IV 7-06 mL/hr, IV ity of infusion 22:45: Infusion, [place] 1,000 mL 00 CONTINUOUS Medic al , Starting Branch [facility] 01/24/20 at 1745, Until Discontinu ed, Routine traZODone 2020-0 Yes 50mg 50 mg, Univer s (DESYREL) 7- Oral, ity of tablet 50 21:54: QHSPRN, [place] mg 43 Starting Medical [facility] 01/24/20 Branch at 1654, Until Discontinu ed, Routine, Insomnia ondansetron 2020-0 Yes 4mg 4 mg, Slow Univers (ZOFRAN 01-23 IV Push, ity of (PF)) 21:38: Q6HPRN, [place] injection 4 49 Starting Medi niranjan mg 01/24/20 Branch at 1638, Until Discontinu ed, Routine, Nausea and Vomiting (N/V) HYDROcodone 2020-0 Yes 1{tbl} 1 tablet, Univers -acetaminop 01-23 Oral, ity of hen (NORCO 21:38: Q4HPRN, [place] 5) 5-325 mg 49 Starting Medi niranjan tablet 1 [facility] 01/24/20 Branc h tablet at 1638, Until Discontinu ed, Routine, Pain (scale 7-10) traMADol 2020-0 Yes 50mg 50 mg, Univers (ULTRAM) 7-06 Oral, ity of tablet 50 21:38: Q4HPRN, [place] mg 49 Starting Medical [facility] 01/24/20 Branch at 1638, Until Discontinu ed, Routine, Pain (scale 4-6) acetaminoph 2020-0 2020- No 650mg 650 mg, U nivers en 7- 07-06 Oral, ity of (TYLENOL) 15:00: 14:45 ONCE, 1 [place] tablet 650 00 :00 dose, Mon Medi niranjan mg 01/24/20 at Branch 1000, [facility] gadoteridol 2020-0 2020- No .2mL/kg 14.42 mL Univers (PROHANCE-1 01-23 07-06 (0.2 mL/kg i ty of 5 mL) 02:30: 02:00 ?72.1 kg), [place] injection 00 :00 Intravenou Medi niranjan 14.42 mL s, ONCE, 1 Branc h dose, 01/23/20 at 2130, Routine traZODone 2020-0 Yes 50mg Take 50 mg Un satinder 50 mg 7-03 by mouth ity of tablet 18:45: as needed [place] 45 for Medical Insomnia. Branch traZODone 2020-0 Yes 50mg Take 50 mg Un satinder 50 mg 7-03 by mouth ity of tablet 18:45: as needed [place] 45 for Medical Insomnia. Branch gabapentin 2020-0 Yes [id number] 300mg Take 1 Univers 300 mg 7-03 capsule by ity of capsule 00:00: mouth 3 [place] [address] (three) Medical times Branch daily. gabapentin 2020-0 Yes [id number] 300mg Take 1 Univers 300 mg 7-03 capsule by ity of capsule 00:00: mouth 3 [place] [address] ([facility]) Medical times Branch daily. gabapentin 2020-0 Yes [id number] 300mg Take 1 Univers 300 mg 7-03 capsule by ity of capsule 00:00: mouth 3 [place] ([facility]) Medical times Branch daily. gabapentin 2020-0 Yes [id number] 300mg Take 1 Univers 300 mg 7-03 capsule by ity of capsule 00:00: mouth 3 [place] 00 (three) Medical times Branch daily. gabapentin 2020-0 Yes [id number] 300mg Take 1 Univers 300 mg 7-03 capsule by ity of capsule 00:00: mouth 3 [place] 00 (three) Medical times Branch daily. gabapentin 2020-0 Yes [id number] 300mg Take 1 Univers 300 mg 7-03 capsule by ity of capsule 00:00: mouth 3 [place] 00 (three) Medical times Branch daily. gabapentin 2020-0 Yes [id number] 300mg Take 1 Univers 300 mg 7-03 capsule by ity of capsule 00:00: mouth 3 [place] (three) Medical times Branch daily. gabapentin 2020-0 Yes [id number] 300mg Take 1 Univers 300 mg 7-03 capsule by ity of capsule 00:00: mouth 3 [place] [address] (three) Medical times Branch daily. gabapentin 2020-0 Yes [id number] 300mg Take 1 Univers 300 mg 7-03 capsule by ity of capsule 00:00: mouth (three) Medical times Branch daily. gabapentin 2020-0 Yes [id number] 300mg Take 1 Univers 300 mg 7-03 capsule by ity of capsule 00:00: mouth 3 (three) Medical times Branch daily. gabapentin 2020-0 Yes [id number] 300mg Take 1 Univers 300 mg 7-03 capsule by ity of capsule 00:00: mouth (three) Medical times Branch daily. gabapentin 2020-0 Yes [id number] 300mg Take 1 Univers 300 mg 7-03 capsule by ity of capsule 00:00: mouth (three) Medical times Branch daily. gabapentin 2020-0 Yes [id number] 300mg Take 1 Univers 300 mg 7-03 capsule by ity of capsule 00:00: mouth (three) Medical times Branch daily. gabapentin 2020-0 Yes [id number] 300mg Take 1 Univers 300 mg 7-03 capsule by ity of capsule 00:00: mouth (three) Medical times Branch daily. gabapentin 2020-0 Yes [id number] 300mg Take 1 Univers 300 mg 7-03 capsule by ity of capsule 00:00: mouth (three) Medical times Branch daily. gabapentin 2020-0 Yes [id number] 300mg Take 1 Univers 300 mg 7-03 capsule by ity of capsule 00:00: mouth (three) Medical times Branch daily. gabapentin 2020-0 Yes [id number] 300mg Take 1 Univers 300 mg 7-03 capsule by ity of capsule 00:00: mouth (three) Medical times Branch daily. gabapentin 2020-0 Yes [id number] 300mg Take 1 Univers 300 mg 7-03 capsule by ity of capsule 00:00: mouth (three) Medical times Branch daily. gabapentin 2020-0 Yes [id number] 300mg Take 1 Univers 300 mg 7-03 capsule by ity of capsule 00:00: mouth 3 (three) Medical times Branch daily. gabapentin 2020-0 Yes [id number] 300mg Take 1 Univers 300 mg 7-03 capsule by ity of capsule 00:00: mouth 3 (three) Medical times Branch daily. gabapentin 2020-0 Yes [id number] 300mg Take 1 Univers 300 mg 7-03 capsule by ity of capsule 00:00: mouth 3 (three) Medical times Branch daily. gabapentin 2020-0 Yes [id number] 300mg Take 1 Univers 300 mg 7-03 [...] 00 (two) Medical times Branch daily. albuterol 2018-0 [...] tablet by ity of tablet 00:00: mouth [place] (two) Medical times Branch daily. albuterol 2018-0 Yes 2{puff} Inhale 2 U nivers 90 9-11 Puffs ity of mcg/actuati 00:00: every 6 [place] as on inhaler 00 (six) Medical hours as Branch needed for Wheezing or Shortness of Breath. pantoprazol 2018-0 Yes 40mg Take 1 Univ ers e 40 mg EC 9-11 tablet by ity of tablet 00:00: mouth [place] (two) Medical times Branch daily. pantoprazol 2018-0 Yes 40mg Take 1 Univ ers e 40 mg EC 9-11 tablet by ity of tablet 00:00: mouth [place] (two) Medical times Branch daily. albuterol 2018-0 [...] by ity of tablet 00:00: mouth 2 00 (two) Medical times Branch daily. albuterol 2018-0 [...] by ity of tablet 00:00: mouth 2 [place] 00 (two) Medical times Branch daily. albuterol 2018-0 Yes 2{puff} Inhale 2 U nivers 90 9-11 Puffs ity of mcg/actuati 00:00: every 6 [place] as on inhaler 00 (six) Medical hours as Branch needed for Wheezing or Shortness of Breath. pantoprazol 2018-0 Yes 40mg Take 1 Univ ers e 40 mg EC 9-11 tablet by ity of tablet 00:00: mouth 2 [place] (two) Medical times Branch daily. albuterol 2018-0 Yes 2{puff} Inhale 2 U nivers 90 9-11 Puffs ity of mcg/actuati 00:00: every 6 [place] as on inhaler 00 (six) Medical hours as Branch needed for Wheezing or Shortness of Breath. pantoprazol 2017-0 Yes 40mg Take 1 Univ ers e 40 mg EC 9-11 tablet by ity of tablet 00:00: mouth 2 [place] [address] (two) Medical times Branch daily. albuterol 2017-0 Yes 2{puff} Inhale 2 U nivers 90 9-11 Puffs ity of mcg/actuati 00:00: every 6 [place] as on inhaler 00 (six) Medical hours as Branch needed for Wheezing or Shortness of Breath. Immunizations Ordered Filled Immunization Date Status Comments [facility] Immunization Name Name Pneumococcal 2020-01-28 Completed University [...] 16:13:00 137 mm[Hg] Univer sity of pressure [facility] Diastolic blood 2020-04-04 16:13:00 82 mm[Hg] Unive rsity of pressure [facility] Heart rate 2020-04-04 16:13:00 101 /min [facility] Body height 2020-04-04 16:13:00 157.5 cm [facility] Body weight 2020-04-04 16:13:00 72.576 kg [facility] BMI 2020-04-04 16:13:00 29.26 kg/m2 [facility] [place] [facility] Systolic blood 2020-04-04 16:13:00 137 mm[Hg] Univer sity of pressure [place] [facility] Diastolic blood 2020-04-04 16:13:00 82 mm[Hg] Unive rsity of [facility] Heart rate 2020-04-04 16:13:00 101 /min [facility] Body height 2020-04-04 16:13:00 157.5 cm [facility] Body weight 2020-04-04 16:13:00 72.576 kg [facility] BMI 2020-04-04 16:13:00 29.26 kg/m2 [facility] Systolic blood 2020-03-02 13:56:00 128 mm[Hg] Univer sity of pressure [facility] Diastolic blood 2020-03-02 13:56:00 78 mm[Hg] Unive rsity of pressure [facility] Heart rate 2020-03-02 13:55:00 100 /min [facility] Respiratory rate 2020-03-02 13:55:00 16 /min Univ ersity of [facility] Body height 2020-03-02 13:55:00 157.5 cm [facility] Body weight 2020-03-02 13:55:00 73.755 kg [facility] BMI 2020-03-02 13:55:00 29.74 kg/m2 [facility] Oxygen saturation in 2020-03-02 13:55:00 98 /min University Arterial blood by [facility] Pulse oximetry Branch Systolic blood 2020-02-22 19:48:00 128 mm[Hg] Univer sity of pressure [facility] Diastolic blood 2020-02-22 19:48:00 77 mm[Hg] Unive rsity of pressure [facility] Heart rate 2020-02-22 19:48:00 109 /min [facility] Body height 2020-02-22 19:48:00 157.5 cm [facility] Body weight 2020-02-22 19:48:00 72.984 kg [facility] BMI 2020-02-22 19:48:00 29.43 kg/m2 Universi ty of [facility] Systolic blood 2020-01-28 16:24:00 126 mm[Hg] Univer sity of pressure [facility] Diastolic blood 2020-01-28 16:24:00 64 mm[Hg] Unive rsity of pressure [facility] Heart rate 2020-01-28 16:24:00 88 /min Universi ty of [facility] Body temperature 2020-01-28 16:24:00 36.67 Stefany [facility] Respiratory rate 2020-01-28 16:24:00 18 /min [facility] Oxygen saturation in 2020-01-28 16:24:00 97 /min [facility] Arterial blood by [facility] Pulse oximetry Campus Body height 2020-01-25 02:01:00 157.5 cm Universi ty of [facility] Body weight 2020-01-25 02:01:00 67.586 kg Universi ty [facility] BMI 2020-01-25 02:01:00 27.25 kg/m2 Universi ty [facility] Systolic blood 2020-01-21 18:46:00 143 mm[Hg] Univer sity of [facility] Diastolic blood 2020-01-21 18:46:00 84 mm[Hg] Unive rsity of pressure [facility] Heart rate 2020-01-21 18:46:00 76 /min Universi ty of [facility] Body temperature 2020-01-21 18:43:00 37.17 Stefany Univ ersity of [facility] Respiratory rate 2020-01-21 18:43:00 15 /min [facility] Body height 2020-01-21 18:43:00 157.5 cm Universi ty [facility] Body weight 2020-01-21 18:43:00 72.122 kg Universi ty [facility] BMI 2020-01-21 18:43:00 29.08 kg/m2 Universi ty [facility] Procedures Procedure Date / Time Performing Clinician Source Performed PATIENT QUESTIONNAIRE 2020-03-02 05:01:00 Doctor Unassigned, No [facility] Name [facility] BASIC METABOLIC PANEL 2020-01-28 09:58:00 Wilfredo Devine [facility] (NA, K, CL, CO2, Medical Branch GLUCOSE, BUN, CREATININE, CA) CBC WITH DIFFERENTIAL 2020-01-28 09:58:00 Wilfredo Devine [facility] XR LUMBAR SPINE 1 VW 2020-01-27 20:09:01 Eris Marcano [facility] XR LUMBAR SPINE 1 VW 2020-01-27 19:46:40 Eris Marcano [facility] LAMINECTOMY LUMBAR WITH 2020-01-27 18:12:[address] [facility] DISCECTOMY Medical Branch URINE CULTURE 2020-01-27 17:19:00 Nilson [facility] PROTHROMBIN TIME / INR 2020-01-27 12:35:00 Wilfredo Devine [facility] ACTIVATED PARTIAL 2020-01-27 12:35:00 Nilson [facility] HB ABO GROUPING 2020-01-27 12:30:00 Nilson [facility] CBC WITH DIFFERENTIAL 2020-01-27 10:04:00 Nilson [facility] BASIC METABOLIC PANEL 2020-01-27 10:04:00 Nilson [facility] (NA, K, CL, CO2, Medical Branch GLUCOSE, BUN, CREATININE, CA) CBC WITH DIFFERENTIAL 2020-01-26 09:35:00 Nilson [facility] BASIC METABOLIC PANEL 2020-01-26 09:35:00 Nilson [facility] (NA, K, CL, CO2, Medical Branch GLUCOSE, BUN, CREATININE, CA) CBC WITH DIFFERENTIAL 2020-01-25 09:15:00 Nilson [facility] BASIC METABOLIC PANEL 2020-01-25 09:15:00 Nilson [facility] (NA, K, CL, CO2, Medical Branch GLUCOSE, BUN, CREATININE, CA) PROTHROMBIN TIME / INR 2020-01-25 00:22:00 Wilfredo Devine [facility] ACTIVATED PARTIAL 2020-01-25 00:22:00 Nilson [facility] FIBRINOGEN 2020-01-25 00:22:00 Nilson [facility] BASIC METABOLIC PANEL 2020-01-25 00:22:00 Nilson, Wilfredo [facility] (NA, K, CL, CO2, Medical Branch GLUCOSE, BUN, CREATININE, CA) CBC WITH DIFFERENTIAL 2020-01-25 00:21:00 Wilfredo Devine [facility] MR LUMBAR SPINE W WO 2020-01-24 02:15:00 Shin Albarran [facility] CONTRAST [facility] COVID-19 (ID NOW RAPID 2020-01-24 00:01:00 Shin Albarran [facility] TESTING) Medical Branch URINALYSIS 2020-01-23 22:59:00 [facility] o f [facility] BASIC METABOLIC PANEL 2020-01-23 22:58:00 [facility] Shin [facility] (NA, K, CL, CO2, Medical Branch GLUCOSE, BUN, CREATININE, CA) Encounters Start End Encounter Admission Attending Care Care Encounter Source Date/Time Date/Time Type Type Clinicians Facility Department ID 2021-05-18 Emergency [facility] [id number] [facility] 04:44:59 [facility] 2021-09-03 2021-09-03 Telephone Francisco Sharma [facility] 1.2.840.114 [id number] MS 00:00:00 00:00:00 ORTHO AND 350.1.13.58 Health SPINE 9.2.7.2.686 MEDICAL [id number] PLAZA 1 2021-05-11 2021-05-11 Inpatient EM Federico Qureshi [facility] [id number] [facility] 17:52:00 21:42:00 14 [facility] 2020-10-10 2020-10-10 [facility] 1.2.840.114 [id number] Univers 00:00:00 00:00:00 Outreach Mohit PRIMARY 350.1.13.10 i ty of Yves CARE 4.2.7.2.686 [facility]aleb s PAVILLION [phone] Co dical 388 Branch 2020-10-10 2020-10-10 Patient Alek [facility] 1.2.840.114 [id number] 00:00:00 00:00:00 Outreach Mohit PRIMARY 350.1.13.10 Yves CARE 4.2.7.2.686 PAVILLION [id number] 388 2020-04-04 2020-04-04 Outpatient R NITIN [facility] [id number] Univers 11:15:00 11:15:00 QIAN ity [facility] 2020-04-04 2020-04-04 Outpatient R NITIN [facility] [id number] Univers 11:15:00 11:15:00 QIAN ity [facility] 2020-04-04 2020-04-04 Office [facility] 1.2.840.114 [id number] Univers 10:33:36 10:48:36 Visit [facility] 350.1.13.10 [place] [phone] [address] Office Building 2020-04-04 2020-04-04 Office [facility] 1.2.840.114 [id number] 10:33:36 10:48:36 Visit [facility] 350.1.13.10 [place] 4.2.7.2.686 [place] [phone] [place] [address] Office Building 2020-03-29 2020-03-29 Outpatient R NITIN [facility] [id number] Univers 11:15:00 11:15:00 QIAN ity [facility] 2020-03-24 2020-03-24 Telephone [facility] 1.2.840.114 [id number] Univers 00:00:00 00:00:00 [facility] 350.1.13.10 it[place] [phone] [address] Office Building 2020-03-23 2020-03-23 Outpatient R NASREEN [facility] [id number] Univers 14:30:00 14:30:00 BAHMAN ity [facility] 2020-03-23 2020-03-23 Telephone [facility] 1.2.840.114 [id number] Univers 00:00:00 00:00:00 Bahman MULTISPEC 350.1.13.10 it[place] [id number] [address] [facility] 2020-03-15 2020-03-15 [facility] [id number] Univers 10:30:00 10:30:00 QIAN ity [facility] 2020-03-02 2020-03-02 Office Nasreen [facility] 1.2.840.114 [id number] Univers 08:38:55 10:24:57 Visit [facility] 350.1.13.10 ity [place] [id number] [address] DIABETES CLINIC 2020-03-02 2020-03-02 Outpatient R NASREEN [facility] [id number] Univers 09:00:00 09:00:00 BAHMAN ity [facility] 2020-03-02 2020-03-02 Orders Doctor ANU 1.2.840.114 [id number] Univers 00:00:00 00:00:00 Only Unassigned, TRAY 350.1.13.10 ity [address] [place] [facility] 4.2.7.2.686 [place] [phone] [address] 2020-02-22 2020-02-22 Office [facility] 1.2.840.114 [id number] Univers 13:48:46 15:34:27 Visit [facility] 350.1.13.10 [place] [id number] [address] Office Building 2020-02-22 2020-02-22 [facility] [id number] Univers 14:15:00 14:15:00 [facility] ity [facility] 2020-02-17 2020-02-17 Telephone [facility] 1.2.840.114 [id number] Univers 00:00:00 00:00:00 [facility] 350.1.13.10 [place] [phone] [address] Office Building 2020-02-11 2020-02-11 Office Clinic, Neurosurgery Residen t UN[facility]ERSIT 1.2.840.114 [id number] Univers 12:40:36 14:03:31 Visit Qian Andrade HEALTH 350.1.13 .10 ity of [place] [id number] [address] 2020-02-11 2020-02-11 Outpatient R NITIN [facility] [id number] Univers 13:00:00 13:00:00 QIAN ity of [facility] 2020-02-03 2020-02-03 Telephone [facility] 1.2.840.114 [id number] Univers 00:00:00 00:00:00 Qian [facility] 350.1.13.10 [place] [id number] [address] Office Building 2020-01-31 2020-01-31 Transition Kristina Marie 1.2.840.114 [id number] Univers 00:00:00 00:00:00 of Care Michaela Alanis 350.1.13.10 ity [place] [id number] [facility] 403 Branch 2020-01-23 2020-01-28 [facility] Emmanuelyuriy Jenelle Izaguirre 1.2.84 0.114 [id number] Univers 16:20:21 15:18:00 Encounter Eduin Bansal 350.1.13.1 0 ity of [facility] 4.2.7.2.686 [facility] [id number] [facility] 094 Campus 2020-01-25 2020-01-25 Telephone ANU Albarran 1.2.840.114 [id number] Univers 00:00:00 00:00:00 Shin FELIZ 350.1.13.[address] [facility] 4.2.7.2.686 [place] [phone] [facility] 019 Branch 2020-01-21 2020-01-21 Office SEVEN Gutierrez 1.2.840.114 [id number] Univers 13:30:27 14:00:27 Visit [facility] Y HEALTH 350.1.13.10 ity of [place] [id number] [address] 2020-01-21 2020-01-21 Outpatient R TAHIR [facility] [id number] [facility] 13:15:00 13:15:00 YADI edwards [facility] 2017-03-26 2017-03-26 Emergency E [facility] [id number] Medical 14:55:00 14:55:00 [facility] 2017-03-07 2017-03-07 Emergency E [facility] MED [id number] Medical 17:01:00 17:01:00 [facility] 2017-02-22 2017-02-22 Emergency E [facility] [id number] Medical 11:40:00 11:40:00 [facility] Results Test Description Test Time Test Comments Results Result Sour e Comments - CT ABD PELVIS 2021-05-11 W/CONT 20:45:00 [facility] 1965 Sex: F Name: KEKE HAYNES [facility] : 1965 Age/S: 55 / F [address] [place] Unit #: [id number] Loc: [place] [address] Phys: RashidcarlozFederico Acct: [id number] Dis Date: Status: REG ER PHONE #: [phone] Exam Date: 05/11/20212029 FAX #: Reason: pain - s/p colonoscopy yesterday EXAMS: CPT: [id number] CT ABD PELVIS W/CONT 69599 EXAMINATION: - CT ABD PELVIS W/CONT COMPARISON: [...] 1 Signed Report (CONTINUED) Name: KEKE HAYNES [place] : 1965 Age/S: 55 / F [address] [facility] [place] Unit #: [id number] Loc: [place] [address] Phys: TitusFederico DO Acct: [id number] Dis Date: Status: REG ER PHONE #: [phone] Exam Date: 05/11/20212029 FAX #: Reason: pain - s/p colonoscopy yesterday EXAMS: CPT: [id number] CT ABD PELVIS W/CONT 05274 (Continued) No evidence of bowel perforation or other acute abnormality Dilated common bile duct and intrahepatic biliary system. In the absence of abnormal laboratory values, findings may be related to reservoir effect secondary to the patient's cholecystectomy status at 2045 Reported and signed by: Silvia Olmedo M.D. CC: Federico Qureshi DO Technologist:Jonelle Mazariegos, RT (R)(CT) CTDI: DLP: Trnscb Date/Time: 05/11/2021 (2044) [id number] Orig Print D/T: S: 05/11/2021 (2047) PAGE 2 Signed Report LIPASE 2021-05-11 19:26:00 Test Item Value Reference Range Interpretation Comme nts LIPASE (test code = LIP) 73 Unit/L 114-286 L BASIC METABOLIC [id number] 19:26:00 Test Item Value Reference Range Interpretation [...] CA) 9.5 MG/DL 8.5-10.1 N HEPATIC FUNCTION [id number] 19:26:00 Test Item Value Reference Range Interpretation [...] = ALKP) UA RFLX MICR CULT IF [id number] 19:08:00 Test Item Value Reference Range Interpretation [...] BACU) Indication for culture: Flank PainCBC W/AUTO [id number] 18:41:00 Test Item Value Reference Range Interpretation [...] code NO DIFF/SCN CRITERIA = MDIFF) URINE [id number] 11:57:00 Test Item Value Reference Range Interpretation Comments URINE CULTURE (test No aerobic organisms code = 630-4) isolated [facility] METABOLIC PANEL (NA, K, CL, CO2, GLUCOSE, BUN, CREATININE, CA)2020-01-28 10:47:00 Test Item Value Reference Range Interpretation Comments NA (test code = 135 mmol/L 135-145 6379114778) K (test code = 4.0 mmol/L 3.5-5 9976270592) CL (test code = 104 mmol/L 98-108 6715640958) CO2 TOTAL (test code = 26 mmol/L 23-31 0905768618) AGAP (test code = 2-16 8536213968) BUN (test code = 7 mg/dL 7-23 6759447957) GLUCOSE (test code = 128 mg/dL 70-110 H 2366519299) CREATININE (test code = 0.42 mg/dL 0.5-1.04 L 3614407883) CALCIUM (test code = 9.1 mg/dL 8.6-10.6 3895486291) eGFR Calculation mL/min/1.73m2 (Non-) (test code = 0962512770) eGFR Calculation mL/min/1.73m2 () (test code = 2615998618) SOLEDAD (test code = SOLEDAD) Association of [...] tests). Lab Interpretation Abnormal (test code = 64224-3) [facility] WITH [id number] 10:28:00 Test Item Value Reference Range Interpretation Comments WBC (test code = See_Comment H [Automated 6690-2) message] The system which generated this result transmit sherry reference range : 4.30 - 11.10 10*3/?L. The reference range was not used to interpret this result as normal/abnormal . RBC (test code = See_Comment L [Automated 789-8) message] The system which generated this result [...] RDW-SD (test code = 40.6 fL 39-49.9 65100-9) RDW-CV (test code = 12.2 % 12-15.5 788-0) PLT (test code = See_Comment [Automated 777-3) message] The system which generated this result transmit sherry reference range : 166 - 358 10*3/ ?L. The reference range was not u sed to interpret th is result as normal/abnormal . MPV (test code = 8.8 fL 9.5-12.9 L 63458-6) NRBC/100 WBC (test See_Comment [Automat ed code = 3792080608) message] The system which generated this result transmit sherry reference range : 0.0 - 10.0 /100 WBCs. The reference range was not used to interpret this result as normal/abnormal . NRBC x10^3 (test code <0.01 See_Comment [Auto mated = 5369574585) message] The system which generated this result transmit sherry reference range : 10*3/?L. The reference range was not used to interpret this result as normal/abnormal . GRAN MAT (NEUT) % 84.9 % (test code = 770-8) IMM GRAN % (test code 0.40 % = 8365014348) LYMPH % (test code = 10.7 % 736-9) MONO % (test code = 3.7 % 5905-5) EOS % (test code = 0.1 % 713-8) BASO % (test code = 0.2 % 706-2) GRAN MAT x10^3(ANC) 10.00 10*3/uL 1.88-7.09 H (test code = 1523927491) IMM GRAN x10^3 (test 0.05 10*3/uL 0-0.06 code = 1121460602) LYMPH x10^3 (test code 1.26 10*3/uL 1.32-3.29 L = 731-0) MONO x10^3 (test code 0.43 10*3/uL 0.33-0.92 = 742-7) EOS x10^3 (test code = <0.03 0.03-0.39 L 711-2) BASO x10^3 (test code <0.03 0.01-0.07 = 704-7) Lab Interpretation Abnormal (test code = 79134-1) [facility] [id number] 20:33:47 Lateral intraoperative radiographs of the lumbar spine was obtained. ?Themost inferior fully formeddisc is presumed L5-S1. On the second lateral intraoperative radiograph, superior localizinginstrument tips are identified L2- L3 level. Inferior localizing instrumenttip is identified at L5-S1 level.EXA MINATION: XR LUMBAR SPINE 1 VW CLINICAL HISTORY: Intraoperative COMPARISON: ?None [facility], Radiant Results Inft User - 01/27/2020 3:34 PM CDTEXAMINATION: XR LUMBAR SPINE 1 VWCLINICAL HISTORY: IntraoperativeCOMPARISON: NoneIMPRESSIONLateral intraoperative radiographs of the lumbar spine was obtained. Themost inferior fully formed disc is presumed L5-S1.On the second lateral intraoperative radiograph, superior localizinginstrument tips are identified L2-L3 level. Inferior localizing instrumenttip is identified at L5-S1 level.[facility] LUMBAR SPINE 1 [id number] 19:58:40 Single lateral intraoperative radiograph of the lumbar spine was obtained. The most inferior fully formed disc is presumed L5-S1. The superior localizing instrument tip is posterior to the L1 spinousprocess at the level of the L2 vertebral body. The inferior localizinginstrument tip is at the level of the L5 vertebral body.EXAMINATION: XR LUMBAR SPINE 1 VW CLINICAL HISTORY: Intraoperative COMPARISON: ?None [facility], Radiant Results Inft User - 01/27/2020 2:59 PM CDTEXAMINATION: XR LUMBAR SPINE 1 VWCLINICAL HISTORY: IntraoperativeCOMPARISON: NoneIMPRESSIONSingle lateral intraoperative radiograph of thelumbar spine was obtained. The most inferior fully formed disc is presumed L5-S1.The superior localizing instrument tip is posterior to the L1 spinousprocess at the level of the L2 vertebral body. The inferior localizinginstrument tip is at the level of the L5 vertebral body.[facility] DallasPROTHROMBIN TIME / [id number] 13:21:00 Test Item Value Reference Range Interpretation Comments PROTIME PATIENT (test See_Comment [Auto mated message] code = 5964-2) The system Orchestrate generated this result transmitted ref erence range: 10.1 - 1 2.6 Seconds. The re ference range was not u sed to interpret this result as normal/abnor mal. INR (test code = 6301-6) Nor mal INR <1.1; Warfarin Therap eutic range 2.0 to 3. 0 or 2.5 to 3.5, dep ending upon the indica tions. Lab Interpretation (test Normal code = 68411-3) [facility] DallasaPTT2020-07-09 13:21:00 Test Item Value Reference Range Interpretation Comments APTT Patient (test code See_Comment H [Au tomated message] = 3173-2) The system Fatsoma h generated this result transmitted ref erence range: 26 - 36 Seconds. The reference range was not used to int erpret this result as normal/abnormal . Lab Interpretation (test Abnormal code = 78116-6) [facility] DallasType and Screen - ONCE [id number] 13:15:10 Test Item Value Reference Range Interpretation Comments ABO & RH (test code O POSITIVE Performe d at [facility] = 20) Laboratory Serv [facility] Blood Bank3 [address] [facility] [address]Sazg Free: [phone] A No. [id number] IAT (test code = Negative Performed a t [facility] 1185) Laboratory Serv [facility] Blood Bank3 [facility] [address]Wfft Free: [phone] A No. [id number] [facility] (NA, K, CL, CO2, GLUCOSE, BUN, CREATININE, CA)2020-01-27 10:53:00 Test Item Value Reference Range Interpretation Comments NA (test code = 138 mmol/L 135-145 7059944963) K (test code = 3.7 mmol/L 3.5-5 2226637506) CL (test code = 105 mmol/L 98-108 8109997477) CO2 TOTAL (test code = 26 mmol/L 23-31 6250979988) AGAP (test code = 2-16 9234679803) BUN (test code = 13 mg/dL 7-23 7146412436) GLUCOSE (test code = 98 mg/dL 70-110 6425351719) CREATININE (test code 0.51 mg/dL 0.5-1.04 = 0847812827) CALCIUM (test code = 9.1 mg/dL 8.6-10.6 8390905992) eGFR Calculation mL/min/1.73m2 (Non-) (test code = 9633526109) eGFR Calculation mL/min/1.73m2 () (test code = 3872228285) SOLEDAD (test code = SOLEDAD) Association of [...] or urine or abnormalities in imaging tests). [facility] WITH [id number] 10:32:00 Test Item Value Reference Range Interpretation Comments WBC (test code = See_Comment [Automated 4090-2) message] The sy stem which generated this result transmitted reference range : 4.30 - 11.10 10*3/?L. The reference range was not used to interpret this result as normal/abnormal . RBC (test code = See_Comment [Automated 269-8) message] The sy stem which generated this [...] RDW-SD (test code = 39.8 fL 39-49.9 07894-4) RDW-CV (test code = 12.2 % 12-15.5 788-0) PLT (test code = See_Comment [Automated 777-3) message] The sy stem which generated this result transmitted reference range : 166 - 358 10*3/ ?L. The reference r john was not used to interpret this result as normal/abnormal . MPV (test code = 8.5 fL 9.5-12.9 L 70661-9) NRBC/100 WBC (test See_Comment [Automat ed code = 4236899278) message] The system which generated this result transmitted reference range : 0.0 - 10.0 /100 WBCs. The refer ence range was not u sed to interpret th is result as normal/abnormal . NRBC x10^3 (test code <0.01 See_Comment [Auto mated = 4258325401) message] The s ystem which generated this result transmitted reference range : 10*3/?L. The reference range was not used to interpret this result as normal/abnormal . GRAN MAT (NEUT) % 44.4 % (test code = 770-8) IMM GRAN % (test code 0.30 % = 4944865113) LYMPH % (test code = 42.7 % 736-9) MONO % (test code = 7.1 % 5905-5) EOS % (test code = 4.9 % 713-8) BASO % (test code = 0.6 % 706-2) GRAN MAT x10^3(ANC) 2.81 10*3/uL 1.88-7.09 (test code = 2876072186) IMM GRAN x10^3 (test <0.03 0-0.06 code = 3776576977) LYMPH x10^3 (test code 2.71 10*3/uL 1.32-3.29 = 731-0) MONO x10^3 (test code 0.45 10*3/uL 0.33-0.92 = 742-7) EOS x10^3 (test code = 0.31 10*3/uL 0.03-0.39 711-2) BASO x10^3 (test code 0.04 10*3/uL 0.01-0.07 = 704-7) Lab Interpretation Abnormal (test code = 41485-7) [facility] METABOLIC PANEL (NA, K, CL, CO2, GLUCOSE, BUN, CREATININE, CA)2020-01-26 11:01:00 Test Item Value Reference Range Interpretation Comments NA (test code = 135 mmol/L 135-145 1546194824) K (test code = 4.3 mmol/L 3.5-5 Slight 5071107970) hemolysis CL (test code = 105 mmol/L 98-108 4765478978) CO2 TOTAL (test code 22 mmol/L 23-31 L = 5807188708) AGAP (test code = 2-16 3071439552) BUN (test code = 17 mg/dL 7-23 Slight 7467796990) hemolysis GLUCOSE (test code = 103 mg/dL 70-110 5038332838) CREATININE (test code 0.59 mg/dL 0.5-1.04 = 0666887592) CALCIUM (test code = 9.3 mg/dL 8.6-10.6 8368975466) eGFR Calculation mL/min/1.73m2 (Non-) (test code = 9620571525) eGFR Calculation mL/min/1.73m2 () (test code = 4913343585) SOLEDAD (test code = SOLEDAD) Association of [...] tests). Lab Interpretation Abnormal (test code = 89418-8) [facility] WITH [id number] 10:18:00 Test Item Value Reference Range Interpretation [...] RDW-SD (test code = 40.5 fL 39-49.9 34665-1) RDW-CV (test code = 12.2 % 12-15.5 788-0) PLT (test code = See_Comment H [Automated 777-3) message] The sy stem which generated this result transmitted reference range : 166 - 358 10*3/ ?L. The reference r john was not used to interpret this result as normal/abnormal . MPV (test code = 9.1 fL 9.5-12.9 L 06840-6) NRBC/100 WBC (test See_Comment [Automat ed code = 1445100577) message] The system which generated this result transmitted reference range : 0.0 - 10.0 /100 WBCs. The refer ence range was not u sed to interpret th is result as normal/abnormal . NRBC x10^3 (test code <0.01 See_Comment [Auto mated = 5637734135) message] The s ystem which generated this result transmitted reference range : 10*3/?L. The reference range was not used to interpret this result as normal/abnormal . GRAN MAT (NEUT) % 44.6 % (test code = 770-8) IMM GRAN % (test code 0.10 % = 2430033949) LYMPH % (test code = 42.5 % 736-9) MONO % (test code = 7.2 % 5905-5) EOS % (test code = 5.2 % 713-8) BASO % (test code = 0.4 % 706-2) GRAN MAT x10^3(ANC) 3.01 10*3/uL 1.88-7.09 (test code = 6166370312) IMM GRAN x10^3 (test <0.03 0-0.06 code = 9128679576) LYMPH x10^3 (test code 2.88 10*3/uL 1.32-3.29 = 731-0) MONO x10^3 (test code 0.49 10*3/uL 0.33-0.92 = 742-7) EOS x10^3 (test code = 0.35 10*3/uL 0.03-0.39 711-2) BASO x10^3 (test code 0.03 10*3/uL 0.01-0.07 = 704-7) Lab Interpretation Abnormal (test code = 58542-1) [facility] WITH [id number] 10:55:00 Test Item Value Reference Range Interpretation Comments WBC (test code = See_Comment [Automated 4884-2) message] The sy stem which generated this result transmitted reference range : 4.30 - 11.10 10*3/?L. The reference range was not used to interpret this result as normal/abnormal . RBC (test code = See_Comment [Automated 250-8) message] The sy stem which generated this [...] RDW-SD (test code = 41.4 fL 39-49.9 88070-8) RDW-CV (test code = 12.5 % 12-15.5 788-0) PLT (test code = See_Comment [Automated 777-3) message] The sy stem which generated this result transmitted reference range : 166 - 358 10*3/ ?L. The reference r john was not used to interpret this result as normal/abnormal . MPV (test code = 9.2 fL 9.5-12.9 L 16651-7) NRBC/100 WBC (test See_Comment [Automat ed code = 5259826738) message] The system which generated this result transmitted reference range : 0.0 - 10.0 /100 WBCs. The refer ence range was not u sed to interpret th is result as normal/abnormal . NRBC x10^3 (test code <0.01 See_Comment [Auto mated = 3471406267) message] The s ystem which generated this result transmitted reference range : 10*3/?L. The reference range was not used to interpret this result as normal/abnormal . GRAN MAT (NEUT) % 31.3 % (test code = 770-8) IMM GRAN % (test code 0.20 % = 4775748289) LYMPH % (test code = 53.1 % 736-9) MONO % (test code = 8.6 % 5905-5) EOS % (test code = 6.3 % 713-8) BASO % (test code = 0.5 % 706-2) GRAN MAT x10^3(ANC) 1.79 10*3/uL 1.88-7.09 L (test code = 5467621844) IMM GRAN x10^3 (test <0.03 0-0.06 code = 9033207924) LYMPH x10^3 (test code 3.04 10*3/uL 1.32-3.29 = 731-0) MONO x10^3 (test code 0.49 10*3/uL 0.33-0.92 = 742-7) EOS x10^3 (test code = 0.36 10*3/uL 0.03-0.39 711-2) BASO x10^3 (test code 0.03 10*3/uL 0.01-0.07 = 704-7) REACT LYMPHS (test Moderate code = 1577344104) Lab Interpretation Abnormal (test code = 53543-5) [facility] METABOLIC PANEL (NA, K, CL, CO2, GLUCOSE, BUN, CREATININE, CA)2020-01-25 10:38:00 Test Item Value Reference Range Interpretation Comments NA (test code = 139 mmol/L 135-145 1343634632) K (test code = 4.0 mmol/L 3.5-5 7125357714) CL (test code = 105 mmol/L 98-108 2591881039) CO2 TOTAL (test code = 26 mmol/L 23-31 8763942137) AGAP (test code = 2-16 2482481894) BUN (test code = 12 mg/dL 7-23 2142779676) GLUCOSE (test code = 99 mg/dL 70-110 1348659061) CREATININE (test code = 0.47 mg/dL 0.5-1.04 L 8048139081) CALCIUM (test code = 9.2 mg/dL 8.6-10.6 6010129416) eGFR Calculation mL/min/1.73m2 (Non-) (test code = 4271892587) eGFR Calculation mL/min/1.73m2 () (test code = 2461890121) SOLEDAD (test code = SOLEDAD) Association of [...] tests). Lab Interpretation Abnormal (test code = 96154-0) [facility] METABOLIC PANEL (NA, K, CL, CO2, GLUCOSE, BUN, CREATININE, CA)2020-01-25 00:52:00 Test Item Value Reference Range Interpretation Comments NA (test code = 138 mmol/L 135-145 7070693219) K (test code = 5.0 mmol/L 3.5-5 Slight hemoly sis 5548468905) CL (test code = 107 mmol/L 98-108 4730201576) CO2 TOTAL (test 24 mmol/L 23-31 code = 8676399401) AGAP (test code = 2-16 6769342736) BUN (test code = 8 mg/dL 7-23 Slight hemo lysis 3209081677) GLUCOSE (test code 107 mg/dL 70-110 = 3713067751) CREATININE (test 0.53 mg/dL 0.5-1.04 code = 6811972635) CALCIUM (test code 9.3 mg/dL 8.6-10.6 = 1589206538) eGFR Calculation mL/min/1.73m2 (Non-) (test code = 1397890539) eGFR Calculation mL/min/1.73m2 () (test code = 3448988847) SOLEDAD (test code = Association of SOLEDAD) [...] or urine or abnormalities in imaging tests). [facility] / [id number] 00:41:00 Test Item Value Reference Range Interpretation Comments PROTIME PATIENT (test See_Comment [Auto mated message] code = 5964-2) The system [employer] generated this result transmitted ref erence range: 10.1 - 1 2.6 Seconds. The re ference range was not u sed to interpret this result as normal/abnor mal. INR (test code = 6301-6) Nor mal INR <1.1; Warfarin Therap eutic range 2.0 to 3. 0 or 2.5 to 3.5, dep ending upon the indica tions. Lab Interpretation (test Normal code = 84832-4) [facility]2020-[facility] 00:41:00 Test Item Value Reference Range Interpretation Comments APTT Patient (test code See_Comment H [Au tomated message] = 3173-2) The system [employer] generated this result transmitted ref erence range: 26 - 36 Seconds. The reference range was not used to int erpret this result as normal/abnormal . Lab Interpretation (test Abnormal code = 51217-7) [facility] Dallas[facility]IBRINOGEN2020-07-07 00:41:00 Test Item Value Reference Range Interpretation Comments Fibrinogen (test code = 4471126430) 488 mg/dL 167-453 H Lab Interpretation (test code = Abnormal 26685-7) [facility] DallasCB WITH [id number] 00:37:00 Test Item Value Reference Range Interpretation Comments WBC (test code = See_Comment [Automated 7490-2) message] The sy stem which generated this [...] RDW-SD (test code = 41.0 fL 39-49.9 95421-9) RDW-CV (test code = 12.4 % 12-15.5 788-0) PLT (test code = See_Comment H [Automated 777-3) message] The sy stem which generated this result transmitted reference range : 166 - 358 10*3/ ?L. The reference r john was not used to interpret this result as normal/abnormal . MPV (test code = 8.6 fL 9.5-12.9 L 44636-4) NRBC/100 WBC (test See_Comment [Automat ed code = 6565416451) message] The system which generated this result transmitted reference range : 0.0 - 10.0 /100 WBCs. The refer ence range was not u sed to interpret th is result as normal/abnormal . NRBC x10^3 (test code <0.01 See_Comment [Auto mated = 1882568946) message] The s [employer] which generated this result transmitted reference range : 10*3/?L. The reference range was not used to interpret this result as normal/abnormal . GRAN MAT (NEUT) % 44.8 % (test code = 770-8) IMM GRAN % (test code 0.20 % = 7920333035) LYMPH % (test code = 41.3 % 736-9) MONO % (test code = 8.3 % 5905-5) EOS % (test code = 4.8 % 713-8) BASO % (test code = 0.6 % 706-2) GRAN MAT x10^3(ANC) 2.91 10*3/uL 1.88-7.09 (test code = 0306098760) IMM GRAN x10^3 (test <0.03 0-0.06 code = 0798646499) LYMPH x10^3 (test code 2.68 10*3/uL 1.32-3.29 = 731-0) MONO x10^3 (test code 0.54 10*3/uL 0.33-0.92 = 742-7) EOS x10^3 (test code = 0.31 10*3/uL 0.03-0.39 711-2) BASO x10^3 (test code 0.04 10*3/uL 0.01-0.07 = 704-7) Lab Interpretation Abnormal (test code = 14561-5) [facility] DallasMR LUMBAR SPINE W WO [id number] 13:56:48 Spondylosis and spondyloarthropathy result in moderate [...] Conus medullaris terminates at L1 and is normal.Cauda equina nerve rootsare unremarkable. No abnormal intraspinal enhancement. Disc desiccation is noted at L2-S1. At L1-L2, no high-grade spinal canal stenosis or significant neuralforaminal narrowing. At L2-L3, there is diffuse disc bulge with left paracentral discprotrusion, mild facet arthrosis and ligamentum flavum thickening result inmoderate spinal canal stenosis and mild left neural foraminalnarrowing.There is narrowing of subarticular zones with potential [...] canal stenosis and subarticularzones narrowing with potential impingement on the descending S1 nerveroots. The paraspinal soft tissues are unremarkable. [facility], Radiant Results Inft [...] hyperintensities likely reflective of fatty infiltration. Noabnormal enhanceme nt.Conus medullaris terminates at L1 and is normal. Cauda equina nerve rootsare unremarkable. No abnormal intraspinal enhancement.Disc desiccation is noted at L2-S1.At L1-L2, no high-grade spinal canalstenosis or significant neuralforaminal narrowing.At L2-L3, there is diffuse disc bulge with left par acentral discprotrusion, mild facet arthrosis and ligamentum flavum thickening result inmoderate spinal canal [...] canal stenosis and subarticularzones narrowing with potential impingement on the descending S1 nerveroots.The paraspinal soft tissues are unremarkable.IMPRESSIONSpondylosis and spondyloarthropathy result in moderate spinal canalstenosis at L2-L3 and L5- S1, mild at L4-L5.Narrowing of subarticular zones at L2-L3 and L5-S1 with potentialimpingement on the descending L3 and S1 nerve roots.[facility] DallasCOVID-19 (ID NOW RAPID TESTING)2020-01-24 00:44:00 Test Item Value Reference Range Interpretation Comments SARS-CoV-2 Rapid ID NOW Not Detected Not Detected (test code = 35520-1) SOLEDAD (test code = SOLEDAD) ID NOW COVID-19 Assay is an isothermal nucleic acid amplification test intended for the qualitative detection of nucleic acid from SARS-CoV-2 viral RNA in nasopharyngeal (DE[employer]CHNI[employer]ES) specimens. It is used under Emergency Use [...] indicated. Lab Interpretation Normal (test code = 30437-6) [facility] METABOLIC PANEL (NA, K, CL, CO2, GLUCOSE, BUN, CREATININE, CA)2020-01-23 23:29:00 Test Item Value Reference Range Interpretation Comments NA (test code = 138 mmol/L 135-145 5646170684) K (test code = 4.3 mmol/L 3.5-5 8611970146) CL (test code = 108 mmol/L 98-108 3675809124) CO2 TOTAL (test code = 23 mmol/L 23-31 9699789478) AGAP (test code = 2-16 4568396063) BUN (test code = 8 mg/dL 7-23 4618865258) GLUCOSE (test code = 83 mg/dL 70-110 9225396864) CREATININE (test code = 0.44 mg/dL 0.5-1.04 L 7934750980) CALCIUM (test code = 9.6 mg/dL 8.6-10.6 3169256693) eGFR Calculation mL/min/1.73m2 (Non-) (test code = 6325099901) eGFR Calculation mL/min/1.73m2 () (test code = 8303679189) SOLEDAD (test code = SOLEDAD) Association of [...] tests). Lab Interpretation Abnormal (test code = 21975-9) [facility] DallasURINALYSIS2020-07-05 23:25:00 Test Item Value Reference Range Interpretation Comments APPEARANCE (test code = Clear Clear 0910224234) COLOR (test code = Yellow Yellow 0394757185) PH (test code = 4.8-8.0 1534591147) SP GRAVITY (test code = 1.003-1.030 6327628393) GLU U QUAL (test code = Normal Normal 0765058298) BLOOD (test code = 1+ Negative A 5084276052) KETONES (test code = Negative Negative 1424233822) PROTEIN (test code = Negative Negative 2887-8) UROBILIN (test code = Normal Normal 0621343482) BILIRUBIN (test code = Negative Negative 4910929034) NITRITE (test code = Negative Negative 5855191474) LEUK IRAJ (test code = Negative Negative 6813084739) RBC/HPF (test code = See_Comment [Autom ated message] 4177186852) The system [employer] generated this result transmitted ref erence range: 0 - 3 HP F. The reference range was not used to int erpret this result as normal/abnormal . WBC/HPF (test code = See_Comment [Autom ated message] 2160728955) The system [employer] generated this result transmitted ref erence range: 0 - 5 HP F. The reference range was not used to int erpret this result as normal/abnormal . BACTERIA (test code = Negative Negative 6993013432) SQ EPITH (test code = See_Comment [Auto mated message] 6568286760) The system [employer] generated this result transmitted ref erence range: <=2 HPF. The reference range was not used to int erpret this result as normal/abnormal . Lab Interpretation (test Abnormal code = 03537-4) [facility] DallasXR Abdomen KUB 1 [id number] 18:15:18 Patient: KEKE HAYNES Date/Time03/15/2019 18:02 CDTReason for ExamAbdominal distentionReportXR ABDOMEN KUB 1 VIEWDIAGNOSIS: Right lower quadrant pain and distention for 3 daysNo bowel obstruction is seen. Vascular calcifications of the abdomen and pelvis. Surgical clips are noted from a cholecystectomy. Thoracolumbar dextroscoliosis and spondylosis are seen.IMPRESSION: No acute radiographic abnormality in the abdomen. Final Dictated by: MD Corrie, Rocky MelendezctatedDT/TM: 03/15/2019 6:14 pmSigned by: MD Denton Michael JackSigned (Electronic Signature): 03/15/2019 6:15 pmUrinalysis Ibmslahmtvm7889-60-13 16:19:42 Test Item Value Reference Range Interpretation Comments UA WBC (test code = UA WBC) 0-5 /HPF 0-5 UA RBC (test code = UA RBC) 0-4 /HPF 0-4 UA Bacteria (test code = UA Negative /HPF Negative Bacteria) UA Squam Epithelial (test code 21-73 /LPF 0-20 A = UA Squam Epithelial) Urinalysis with Culture, if [id number] 16:19:42 Test Item Value Reference Range Interpretation [...] = UA Micro Ind?) rule GL_SET_UA_MICRO _IND [id number] 16:13:11 Test Item Value Reference Range Interpretation Comments Amylase Level (test code = 53 IntlUnit/L 25-115 Amylase Level) Comprehensive Metabolic [id number] 16:13:11 Test Item Value Reference Range Interpretation [...] = AST) 20 IntlUnit/L 15-37 Comprehensive Metabolic [id number] 16:13:11 Test Item Value Reference Range Interpretation [...] >60 mL/min/1.73 m2 N AA) Comprehensive Metabolic [id number] 16:13:11 Test Item Value Reference Range Interpretation [...] >60 mL/min/1.73 m2 N eGFR Non-AA) Automated [id number] 16:12:15 Test Item Value Reference Range Interpretation Comments Neutro Auto (test code = Neutro Auto) 55.4 % N Lymph Auto (test code = Lymph Auto) 36.3 % N Frederick Auto (test code = Frederick Auto) 5.5 % N Eos, Auto (test code = Eos, Auto) 1.9 % N Basophil Auto (test code = Basophil 0.9 % N Auto) Neutro Absolute (test code = Neutro 4.9 x10 2.7-7.3 Absolute) Lymph Absolute (test code = Lymph 3.2 x10 0.8-3.5 Absolute) Frederick Absolute (test code = Frederick 0.5 x10 0.3-0.9 Absolute) Eos Absolute (test code = Eos 0.2 x10 0.0-0.3 Absolute) Baso Absolute (test code = Baso 0.1 x10 0.0-0.1 Absolute) Complete Blood Count with Xkotjcunkzfy6090-83-51 16:12:14 Test Item Value Reference Range Interpretation [...] created by = Slide Review) GL_SET_SLIDE _REVIEW_A MSO Comprehensive Metabolic [id number] 14:21:14 Test Item Value Reference Range Interpretation [...] = AST) 22 IntlUnit/L 15-37 Comprehensive Metabolic [id number] 14:21:14 Test Item Value Reference Range Interpretation [...] >60 mL/min/1.73 m2 N AA) Comprehensive Metabolic [id number] 14:21:14 Test Item Value Reference Range Interpretation [...] m2 N eGFR Non-AA) Pro B Natriuretic [id number] 14:05:15 Test Item Value Reference Range Interpretation Comments NT-proBNP (test code 6 pg/mL 0-125 < 300 p g/ml - heart = NT-proBNP) failure unlikel yAge less than 50 years, > 450 pg/ml - heart failure lilkelyAge 50 - 75 years, > 900 pg/ml - heart failure likelyAge greater than 75 years, > 1800 pg/ml - he art failure likely Complete Blood Count with Pziyhznpblow2855-49-32 13:59:12 Test Item Value Reference Range Interpretation [...] = Slide Review) GL_SET_SLIDE _REVIEW_A UTO Automated Bivsowvastgc1350-87-64 13:59:12 Test Item Value Reference Range Interpretation Comments Neutro Auto (test code = Neutro Auto) 68.5 % N Lymph Auto (test code = Lymph Auto) 24.5 % N Frederick Auto (test code = Frederick Auto) 5.6 % N Eos, Auto (test code = Eos, Auto) 1.0 % N Basophil Auto (test code = Basophil 0.4 % N Auto) Neutro Absolute (test code = Neutro 8.2 x10 2.7-7.3 H Absolute) Lymph Absolute (test code = Lymph 2.9 x10 0.8-3.5 Absolute) Frederick Absolute (test code = Frederick 0.7 x10 0.3-0.9 Absolute) Eos Absolute (test code = Eos 0.1 x10 0.0-0.3 Absolute) Baso Absolute (test code = Baso 0.0 x10 0.0-0.1 Absolute) XR Chest 2 [id number] 13:41:47Patient: KEKE HAYNES Date/Time02/24/2019 13:18 CDTReason for ExamShortness of breathReportInformation: Dyspnea, chest pain, cough and hypertensionChest 2 viewsIn comparison to prior chest x-ray dated 10/06/2018 there is bilateral pulmonary hyperexpansion. The heart and mediastinum are normal. Pulmonary vascularity is unremarkable. Small scattered healed fibrocalcific deposits are identified.IMPRESSION:1. Pulmonary hyperexpansion consistent with COPD2. Sequela of old granulomatousdisease. Final Dictated by: MD Webster Gustavo MDictated DT/TM: 02/24/2019 1:40 pmSigned by: MD Webster Gustavo MSigned (Electronic Signature): 02/24/2019 1:41 pmXR Chest 2 Jfcat1030-02-95 10:31:38Patient: KEKE HAYNES Date/Time10/06/2018 10:23 CDTReason for ExamCoughReportXRCHEST 2 VIEWSDIAGNOSIS: Cough and chest painThe heart, lungs and bony thorax are unremarkable and unc hanged since 09/22/2018. Hyperinflation suggesting early COPD.IMPRESSION: No active disease and no change since 12/07/2018. Final Dictated by: MD Denton Michael JackDictated DT/TM: 10/06/2018 10:30 amSigned by: MD Denton Michael JackSigned (Electronic Signature): 10/06/2018 10:31 amXR Chest 2 [id number] 14:38:49Patient: KEKE HAYNES Date/Time09/22/2018 14:05 CSTReason for ExamRespiratory distressReportCHEST 2 VIEWS:HISTORY: Respiratory distress, fever, shortness of breathCOMPARISON: 03/29/2018The cardiomediastinal silhouette shows no significant abnormality.No pleural fluid or pulmonary infiltrates are identified.The bony architecture appears intact, where adequately seen.IMPRESSION:No active cardiopulmonary process is identified. Final Dictated by: MD Azevedo Ramon JulioDictated DT/TM: 09/22/2018 2:38 pmSigned by: MD Azevedo Ramon JulioSigned (Electronic Signature): 09/22/2018 2:38 pmXR Ankle Complete 3+ Views Right 2018-09-05 07:53:52Patient: KEKE HAYNES Date/Time09/04/2018 22:40 CSTReason for ExamInjuryReportEXAMINATION: Right ankle 3 viewsTECHNIQUE: AP, lateral, and oblique views of the right ankle were perf ormed.COMPARISON: NoneINDICATION: Fall with posttraumatic right ankle painFINDINGS:No acute fracture-dislocation. No osseous erosions or periosteal reaction. Joint spaces are are relatively well-maintained. No radiopaque foreign bodies. Soft tissues are grossly unremarkable.IMPRESSION:No acute osseous abnormalities of the right ankle. Final Dictated by: MD Cruz, SamerDictated DT/TM: 09/05/2018 7:49 amSigned by: MD Cruz, SameGenetigned (Electronic Signature): 09/05/2018 7:53 amXR Foot Complete 3+ Views Left 2018-09-05 07:53:39Patient: KEKE HAYNES Date/Time09/04/2018 22:40 CSTReason for ExamInjuryReportEXAMINATION: Left foot 3 viewsTECHNIQUE: AP, lateral, and oblique views of the left foot were performed .COMPARISON: Left foot x-rays 01/05/2008INDICATION: Fall with posttraumatic left foot painFINDINGS:Noacute fracture-dislocation. No osseous erosions or periosteal reaction. Mild degenerative changes ofthe midfoot. No radiopaque foreign bodies. Soft tissues are grossly unremarkable.IMPRESSION:No acuteosseous abnormalities of the left foot. Final Dictated by: MD Cruz, SamerDictated DT/TM: 09/05/2018 7:52 amSigned by: MD Cruz, Same[employer]etigned (Electronic Signature): 09/05/2018 7:53 amCT Abdomen and Pelvis w/o Contrast 2018-07-09 14:15:18Patient: KEKE HAYNES Date/Time07/09/2018 13:45 CSTReason for [...] represent a focal area of scar.Calcific granulomas arenoted within the spleen.There is evidence of prior cholecystectomy.Surgical clip noted along the anterior upper pelvis. The spleen has a normal appearance. The pancreas is unremarkable.Common duct measures 7 mm without definite intrahepatic duct dilatation.No abnormalities are demonstrated in the kidneys. No hydronephrosis is observed.No enlarged lymph nodes are seen in the retroperitoneum or the pelv is. There are a few diverticula involving the left colon without signs of diverticulitis.IMPRESSION:4 mm right lower lobe nodule. Small additional area of focal scarring left lung base with a few smallbulla present. Recommend follow-up CT chest 6-8 months.Status post cholecystectomy with no intrahepatic duct dilatation.Nonobstructive bowel pattern with a few noncomplicated left colonic diverticula. Final Dictated by: MD Leary Craig ADictated DT/TM: 07/09/2018 2:02 pmSigned by: MD Leary Craig ASigned (Electronic Signature): 07/09/2018 2:15 [id number] 18:24:00 Test Item Value Reference Range Interpretation [...] BACTERIA (test code = NEGATIVE NONE BACTERIA) [id number] 18:16:00 Test Item Value Reference Range Interpretation [...] glucose = GLUCOSE) normal <100 MG/ DL- [place] recommendation* * CALCIUM (test [...] GFR) mL/min/1.73m2 mL/min/1.73m2 is considered norm al. [id number] 18:16:00 Test Item Value Reference Range Interpretation Comments LIPASE (test code = LIPA) 95 U/L 23-300 [id number] 18:07:00 Test Item Value Reference Range Interpretation [...] 3.5 K/UL 1.2-7.2 = NEUT) OCCULT BLOOD, [id number] 06:35:00 Test Item Value Reference Range Interpretation Comments OCCULT BLOOD FECES (test code = NEGATIVE NEGATIVE OCCBLFEC) LOT# CRD (test code = LOT# CRD) 84161 EXP CRD (test code = EXP CRD) 10-20 LOT# DVL (test code = LOT# DVL) 68136 EXP DVL (test code = EXP DVL) 7- INT QC (test code = INT QC) PASSED [id number] 00:14:00 Test Item Value Reference Range Interpretation [...] glucose = GLUCOSE) normal <100 MG/ DL- [place] recommendation* * CALCIUM (test [...] GFR) mL/min/1.73m2 mL/min/1.73m2 is considered norm al. [id number] 00:14:00 Test Item Value Reference Range Interpretation Comments LIPASE (test code = LIPA) 134 U/L 23-300 ABDOMEN 2 [id number] 21:18:[address] [id number] IMAGING REPORTPatient Name: Amaris HAYNES of Service: [id number]: 52 Sex: F Order #: [id number] Room: QERDOB: 1965 X-Ray Number: [id number] Record Number: [id number] Hospital Number: [id number] Physician: YANNA GUTIERREZOrdering Physician: Mallika MAY.History: Abdomen pain.Technique: 3 supineand upright abdominal projections were obtained andreviewed.Findings:There is no specific acute appea ring abdominal abnormality.There is no evidence to suggest obstruction or free air.The osseous structures appear intact. There is rotatory dextroscoliosis ofthe lumbar spine.Impression:No specific acute appearing abdominal abnormalities.Electronically Signed By: Hao Cole M.D., 04/04/2018 9:16 PMLegally authenticated by CLARA Talley 2018-04-04 21:16:[id number] 17:07:00 Test Item Value Reference Range Interpretation [...] (test code 5.6 K/UL 1.2-7.2 = NEUT) [id number] 17:06:00 Test Item Value Reference Range Interpretation [...] (test code = UAMICRO) NO CT ABDOMEN/PELVIS [id number] 16:28:[address] [id number] IMAGING REPORTPatient Name: Amaris HAYNES of Service: [id number]: 52 Sex: F Order #: [id number] [facility] 1965 [facility] Number: [id number] Record Number: [id number] Hospital Number: [id number] Physician: YANNA GUTIERREZOrdering Physician: DANETTE CLARK ABDOMEN/PELVIS [...] 4:25 PMLegally authenticated by GEORGIA WISEMAN 2018-04-01 16:25:[id number] 14:29:00 Test Item Value Reference Range Interpretation Comments BLOOD TYPE (test code = TYPE) O Rh Positive ANTIBODY SCREEN (test code = NEGATIVE NEGATIVE SCREEN) PROTHROMBIN TIME WITH [id number] 14:13:00 Test Item Value Reference Range Interpretation Comments PROTHROMBIN TIME 12.5 SECONDS 12.0-14.6 INR Usual R john = 2 (test code = PT) to 3 for pr evention of deep vein thrombosis (DVT ) INR (test code = INR) 0.9 [id number] 14:13:00 Test Item Value Reference Range Interpretation Comments PTT (test code = 37.8 SECONDS 24.4-36.3 H HEPARIN THE RAPEUTIC PTT) RANGE 57-92 SEC ONDS [id number] 14:00:00 Test Item Value Reference Range Interpretation [...] glucose = GLUCOSE) normal <100 MG/ DL- [employer] recommendation* * CALCIUM (test [...] GFR) mL/min/1.73m2 mL/min/1.73m2 is considered norm al. [id number] 14:00:00 Test Item Value Reference Range Interpretation Comments LIPASE (test code = LIPA) 40 U/L 23-300 [id number] 13:51:00 Test Item Value Reference Range Interpretation [...] code 8.8 K/UL 1.2-7.2 H = NEUT) [id number] 13:22:00 Test Item Value Reference Range Interpretation [...] (test code = UAMICRO) NO SPINE LUMBAR [id number] 13:32:00[address] [id number] IMAGING REPORTPatient Name: Amaris HAYNES of Service: [id number]: 51 Sex: F Order #: [id number] [facility] 1965 X[facility]Ray Number: [id number] Record Number: [id number] Hospital Number: [id number] Physician: MICHELLE YEOrdering Physician: LAURENCE HONG SPINE 5 VIEWS:CLINICAL HISTORY: Back painradiates into both legs and hipsTECHNIQUE: AP, lateral, bilateral oblique and coned-down lateral views wereobtainedFINDINGS:There are 5 nonrib-bearing lumbar vertebral bodies demonstrated.There is no fracture or dislocation demonstrated.Changes of discogenic disease are noted at L5-S1 with degenerative changesin the articular facets.There are surgical clips in the right upper quadrant and overlying th eright sacroiliac joint.Impression:1. No acute changes are demonstrated.2. Chronic changes as described.Electronically Signed By: Jim Streeter M.D., 10/16/2017 1:29 PMLegallmike authenticated by JENNIFER Daniels 2017-10-16 13:29:[id number] 12:33:00 Test Item Value Reference Range Interpretation [...] BACTERIA (test code = NEGATIVE NONE BACTERIA) 01978& [id number] 06:46:50CHEST 2 VIEWREASON FOR STUDY: [id number]:The heart and mediastinum are within normal limits. Minor linearscarring or atelectasis is noted involving the right infrahilar region.Lungs appear slightly hyperinflated. Bony structures appear intact. . No other significant findings. IMPRESSION: Minor linear scarring or atelectasis involving the right infrahilarregion. Chest is otherwise clear.
[2022-07-28] MEDS ORDERED: dexAMETHasone 10 MG/ML VIAL ONE (15:30)
--- NOTE | 2022-07-28 16:50 | RAD REPORT ---
EXAM DESCRIPTION: US - Extremity Venous Uni Ltd - 07/28/2022 4:40 pm CLINICAL HISTORY: PAIN Arm swelling and edema. COMPARISON: No comparisons FINDINGS: Right upper extremity venous system was interrogated with Doppler technique. Normal flow, compressibility and augmentation was noted. There is no DVT present. IMPRESSION: No evidence of right upper extremity deep venous thrombosis.
--- NOTE | 2022-07-28 17:02 | EDPHYS ---
Physician Documentation [facility] Name: Bárbara Beebe Age: 56 yrs Sex: Female : 1965 Arrival Date: 07/28/2022 Time: 15:06 Bed 12 Private MD: Heron Anderson ED Physician Arnulfo Jackson HPI: 07/28 17:38 This 56 yrs old Female presents to ER via Ambulatory with complaints of Numbness Of kb Hand, Rash. 17:38 The patient or guardian reports decreased range of motion, pain, swelling, tenderness. kb The complaints affect the right wrist diffusely. Context: The problem was sustained at home, resulted from a chronic condition. Onset: The symptoms/episode began/occurred 5 month(s) ago. Modifying factors: The symptoms are alleviated by nothing, the symptoms are aggravated by movement. Associated signs and symptoms: Pertinent positives: numbness distally, tingling distally. The patient has not experienced similar symptoms in the past. The patient has been recently seen by a physician: the patient's primary care provider. Pt reports pain, tingling, numbness and swelling to right wrist, hand and forearm for the last 5 months. Went to PCP for this and had a nerve test done, then was supposed to be referred to neurology, but her PCP never did the referral paperwork. . Historical: - Allergies: 15:50 Codeine; jl7 - Home Meds: 15:47 propranolol 10 mg Oral tab [Active]; zolpidem 12.5 mg Oral TbMP 1 tab once daily jl7 [Active]; tizanidine 4 mg oral cap [Active]; - PMHx: 15:11 bleeding ulcers; COPD; Crohn's; Hypertension; psoriasis; hb - PSHx: 15:11 Appendectomy; back sx; Cholecystectomy; hysterectomy; hb - Immunization history:: Adult Immunizations up to date. - Social history:: Smoking status: unknown. ROS: 17:19 Constitutional: Negative for fever, chills, and weight loss. kb 17:19 MS/extremity: Positive for injury or acute deformity, decreased range of motion, pain, swelling, tenderness. 17:19 All other systems are negative. Exam: 17:38 Constitutional: This is a well developed, well nourished patient who is awake, alert, kb and in no acute distress. Head/Face: Normocephalic, atraumatic. ENT: Moist Mucous membranes Cardiovascular: Regular rate and rhythm with a normal S1 and S2. No gallops, murmurs, or rubs. No pulse deficits. Respiratory: Respirations even and unlabored. No increased work of breathing. Talking in full sentences Abdomen/GI: Soft, non-tender. No distention Skin: Warm, dry with normal turgor. Normal color. Neuro: Awake and alert, GCS 15, oriented to person, place, time, and situation. Moves all extremities. Normal gait. Psych: Awake, alert, with orientation to person, place and time. Behavior, mood, and affect are within normal limits. 17:38 Musculoskeletal/extremity: Extremities: grossly normal except: noted in the right wrist: decreased ROM, pain, tenderness, noted in the dorsal aspect of right forearm: swelling, tenderness, ROM: intact in all extremities, Circulation is intact in all extremities. Sensation intact. Vital Signs: 15:09 BP 207 / 96; Pulse 94; Resp 16; Temp 97.7; Pulse Ox 100% on R/A; Weight 74.84 kg; hb Height 5 ft. 2 in. (157.48 cm); Pain 5/10; 15:48 BP 183 / 91; Pulse 75; Resp 15; Pulse Ox 100% ; jl7 17:18 BP 181 / 89; Pulse 75; Resp 15; Pulse Ox 100% ; jl7 15:09 Body Mass Index 30.18 (74.84 kg, 157.48 cm) hb MDM: 15:16 Patient medically screened. kb 16:51 Differential diagnosis: tendonitis, Carpal tunnel, neuropathy. Data reviewed: vital kb signs, nurses notes. Data interpreted: Pulse oximetry: on room air is 100 %. Interpretation: normal. Counseling: I had a detailed discussion with the patient and/or guardian regarding: the historical points, exam findings, and any diagnostic results supporting the discharge/admit diagnosis, radiology results, the need for outpatient follow up, a orthopedic surgeon, to return to the emergency department if symptoms worsen or persist or if there are any questions or concerns that arise at home. 17:43 ED course: Diagnostic test considered but not performed: X-ray considered but patient madisyn has had the symptoms for 5 months without injury, fracture unlikely. History obtained from: pt. 07/28 15:17 Order name: US Extremity Venous Unilateral Ltd; Complete Time: 16:51 kb 07/28 17:07 Order name: Wrist Splint; Complete Time: 17:19 kb Administered Medications: 15:39 Drug: Decadron (dexamethasone) 10 mg Route: IM; Site: left deltoid; jl7 16:00 Follow up: Response: No adverse reaction jl7 Disposition: 17:42 Co-signature as Attending Physician, Arnulfo Jackson MD. rn Disposition Summary: 07/28/22 17:00 Discharge Ordered Location: Home kb Condition: Stable kb Diagnosis - Pain in right wrist kb Followup: kb - With: Emergency Department - When: As needed - Reason: Worsening of condition Followup: kb - With: Private Physician - When: 2 - 3 days - Reason: Recheck today's complaints, Continuance of care, Re-evaluation by your physician Discharge Instructions: - Discharge Summary Sheet kb - Wrist Pain, Adult, [id number] kb - Carpal Tunnel Syndrome, Irdw-[id number] kb Forms: - Medication Reconciliation Form kb - Thank You Letter kb - Antibiotic Education kb - Prescription Opioid Use kb Prescriptions: - Prednisone 20 mg Oral Tablet - take 1 tablet by ORAL route once daily for 5 days; 5 tablet; Refills: 0, kb Product Selection Permitted Signatures: Dispatcher [employer] EDMS Delilah Perez, CUSTOMS COLLECTOR-C CUSTOMS COLLECTOR-Ckb Arnulfo Jackson MD MD rn Baxter, Heather, RN RN hb Leal, Jahala, RN RN jl7 Corrections: (The following items were deleted from the chart) 15:50 15:11 Allergies: UNKNOWN STEROID; guicho figueroa
--- NOTE | 2022-07-28 17:02 | ER ---
Nurse's Notes [facility] Name: Bárbara Beebe Age: 56 yrs Sex: Female : 1965 Arrival Date: 07/28/2022 Time: 15:06 Bed 12 Private MD: Heron Anderson Diagnosis: Pain in right wrist Presentation: 07/28 15:09 Chief complaint: Partial numbness of right hand x 5 months, reports increasing pain and hb swelling in hand x 1 week. Coronavirus screen: At this time, the client does not indicate any symptoms associated with coronavirus-19. Ebola Screen: No symptoms or risks identified at this time. Initial Sepsis Screen: Does the patient meet any 2 criteria? No. Patient's initial sepsis screen is negative. Does the patient have a suspected source of infection? No. Patient's initial sepsis screen is negative. Risk Assessment: Do you want to hurt yourself or someone else? Patient reports no desire to harm self or others. Onset of symptoms was March 2023. 15:09 Method Of Arrival: Ambulatory hb 15:09 Acuity: ANGELA 4 hb Historical: - Allergies: 15:50 Codeine; jl7 - Home Meds: 15:47 propranolol 10 mg Oral tab [Active]; zolpidem 12.5 mg Oral TbMP 1 tab once daily jl7 [Active]; tizanidine 4 mg oral cap [Active]; - PMHx: 15:11 bleeding ulcers; COPD; Crohn's; Hypertension; psoriasis; hb - PSHx: 15:11 Appendectomy; back sx; Cholecystectomy; hysterectomy; hb - Immunization history:: Adult Immunizations up to date. - Social history:: Smoking status: unknown. Screenin:40 [facility] ED Fall Risk Assessment (Adult) History of falling in the last 3 months, jl7 including since admission No falls in past 3 months (0 pts) Confusion or Disorientation No (0 pts) Intoxicated or Sedated No (0 pts) Impaired Gait No (0 pts) Mobility Assist Device Used No (0 pt) Altered Elimination No (0 pt) Score/Fall Risk Level 0 - 2 = Low Risk Oriented to surroundings. Abuse screen: Denies threats or abuse. Denies injuries from another. Nutritional screening: No deficits noted. Tuberculosis screening: No symptoms or risk factors identified. Assessment: 15:40 Reassessment: Pt states no allergy to steroid only itching with codeine. jl7 15:40 General: Appears in no apparent distress. uncomfortable, Behavior is calm, cooperative, jl7 appropriate for age. Pain: Complains of pain in right wrist and right hand Pain radiates to right arm Pain currently is 0 out of 10 on a pain scale. at worst was 5 out of 10 on a pain scale. Quality of pain is described as sharp, shooting, Pain began x6 months Is episodic. Neuro: Level of Consciousness is awake, alert, obeys commands, Oriented to person, place, time, situation, Paresis in right hand(s). Cardiovascular: Patient's skin is warm and dry. Respiratory: Airway is patent Respiratory effort is even, unlabored, Respiratory pattern is regular, symmetrical. Derm: Skin is pink, warm \T\ dry. 15:50 Reassessment: Pt reports not taking her htn medication this morning, denies TERESA, denies jl7 dizziness, reports she will take the htn medication when she gets home. 16:40 Reassessment: Patient appears in no apparent distress at this time. No changes from jl7 previously documented assessment. Patient and/or family updated on plan of care and expected duration. Pain level reassessed. Patient is alert, oriented x 3, equal unlabored respirations, skin warm/dry/pink. Vital Signs: 15:09 BP 207 / 96; Pulse 94; Resp 16; Temp 97.7; Pulse Ox 100% on R/A; Weight 74.84 kg; hb Height 5 ft. 2 in. (157.48 cm); Pain 5/10; 15:48 BP 183 / 91; Pulse 75; Resp 15; Pulse Ox 100% ; jl7 17:18 BP 181 / 89; Pulse 75; Resp 15; Pulse Ox 100% ; jl7 15:09 Body Mass Index 30.18 (74.84 kg, 157.48 cm) ED Course: 15:06 Patient arrived in ED. as 15:08 Heron Anderson MD is Private Physician. am2 15:10 Delilah Perez FNP-C is [facility]. kb 15:10 Arnulfo Jackson MD is Attending Physician. kb 15:10 Triage completed. hb 15:11 Arm band placed on. hb 15:26 Jacob, Jahala, RN is Primary Nurse. jl7 15:40 Patient has correct armband on for positive identification. Pulse ox on. NIBP on. jl7 16:42 US Extremity Venous Unilateral Ltd In Process Unspecified. EDMS 17:18 No provider procedures requiring assistance completed. Patient did not have IV access jl7 during this emergency room visit. Administered Medications: 15:39 Drug: Decadron (dexamethasone) 10 mg Route: IM; Site: left deltoid; jl7 16:00 Follow up: Response: No adverse reaction jl7 Medication: 15:40 VIS not applicable for this client. jl7 Outcome: 17:00 Discharge ordered by . madisyn 17:18 Discharged to home ambulatory. jl7 17:18 Condition: stable 17:18 Discharge instructions given to patient, Instructed on discharge instructions, follow up and referral plans. medication usage, Demonstrated understanding of instructions, follow-up care, medications, Prescriptions given X 1. 17:20 Patient left the ED. jl7 Signatures: Dispatcher [employer] EDWA Delilah Perez, AMITA YATES-Gudelia Brewer as Mackenzie Palmer RN RN Verónica Mix RN RN lora7 Fabiana Mcmahon am2 Corrections: (The following items were deleted from the chart) 15:50 15:11 Allergies: UNKNOWN STEROID; guicho figueroa
[2022-07-28 17:26] VITALS: TEMP 97.7; O2SAT 100
[2022-07-28 17:28] VITALS: BP 181/89
== END 2022-07-28 17:20 | disposition home or self-care (01) ==
LOC: ER 14:56
DX: M25.531 Pain in right wrist (principal); I10 Essential (primary) hypertension; Z88.5 Allergy status to narcotic agent
CPT/HCPCS: 93971; 96372; 99284; J1100

== ENCOUNTER 2022-08-21 05:02 | Emergency (ER) | payer OTHER ==
--- OUTSIDE RECORDS SUMMARY | 2022-08-21 05:08 | XMS REPORT | Continuity of Care Document ---
:1965 Author Organization [facility] t Address [address] [place] [address] Care Team Providers Name Role Phone Heorn Anderson Jr. Primary Care Physician [phone] JULIA MORA Attending Clinician Unavailable Francisco Sharma DO Attending Clinician Federico Qureshi Attending Clinician Unavailable Mohit Gaston DO Attending Clinician QIAN ANDRAED Attending Clinician Unavailable Qian Andrade MD Attending Clinician BAHMAN DOWNEY Attending Clinician Unavailable Bahman Downey MD Attending Clinician Doctor Unassigned, [place] Attending Clinician Unavailable Clinic, Neurosurgery Resident Attending Clinician UnavailMichaela Gomez Attending Clinician Jenelle Guardado DO Attending Clinician Eduin Bansal MD Attending Clinician Ilsa Johnson MD Attending Clinician Avis WEBB, Shin Attending Clinician Yadi Hart Attending Clinician YADI HARO Attending Clinician Unavailable Heron Anderson Admitting Clinician Unavailable Alex WEBB, Ilsa Admitting Clinician Payers Payer Name Policy Type Policy Number Effective Date Expiration Date Jamee VOSS [id number] 2021 HEALTH PLAN 00:00:00 Problems Condition Condition Condition Status Onset Resolution [...] ally from Medical request Branch for surgery [id number] Allergies, Adverse Reactions, Alerts Allergy Allergy Status Severity Reaction(s) Onset Inactive Treating Comm ents Source Name Type Date Date Clinician No Known DA Active U 2020-07 [facility] Allergie 0-22 [place] 00:[facility]: d 00 [facility] sucralfa FA Active U Rash 2020-07 [facility] te 0-22 [place] 00:[facility]: d 00 [facility] No Known DA Active U 2020-07 [facility] Allergie 0-22 [place] 00:[facility]: d 00 [facility] sucralfa FA Active U 2020-07 [facility] te 0-22 [place] 00:[facility]: d 00 [facility] NO KNOWN Drug Active Univers ALLERGIE Class ity of S [facility] Social History Social Habit Start Date Stop Date Quantity Comments Source History of Cigarette Smoker Universi ty of tobacco use [facility] Exposure to Not sure [place] of SARS-CoV-2 [facility] (event) Branch Tobacco use and 2020-03-02 2020-03-02 Never used Universit y of exposure 00:00:00 00:00:00 [facility] Alcohol intake 2020-03-02 2020-03-02 Current University of 00:00:00 00:00:00 non-drinker of [facility] alcohol (finding) Branch Tobacco Comment 2020-01-21 2020-01-21 1/2 pack a day Unive rsity of 00:00:00 00:00:00 [facility] Sex Assigned At [birth year] [facility] 00:[facility] 00:00:00 Smoking Status Start Date Stop Date Source Tobacco smoking consumption [facility] unknown Current every day smoker 2020-03-02 00:00[facility]00 [facility] Medications Ordered Filled Start Stop Current Ordering Indication Dosage Frequency Signature Comments Components Source Medication Medication Date Date Medication? Clinician (SIG) Name Name gabapentin 2019- 2020- No [id number] 600mg Take 1 Univers 600 mg 8-04 11-03 tablet by ity of tablet 00:00: 05:59 mouth 3 [place] 00 :00 (three) Medical times Branch daily for 90 days. cyclobenzap 2019- 2020- No [id number] 10mg Take 1 Univers rine 10 mg 8-04 11-03 tablet by ity of tablet 00:00: 05:59 mouth 3 [place] 00 :00 (three) Medical times Branch daily for 90 days. gabapentin 2019-2019- No [id number] 600mg Take 1 Univers 600 mg 8-04 11-03 tablet by ity of tablet 00:00: 05:59 mouth 3 [place] 00 :00 (three) Medical times Branch daily for 90 days. cyclobenzap 2019-2019- No [id number] 10mg Take 1 Univers rine 10 mg 8-04 11-03 tablet by ity of tablet 00:00: 05:59 mouth 3 [place] 00 :00 (three) Medical times Branch daily for 90 days. gabapentin 2019- 2020- No [id number] 600mg Take 1 Univers 600 mg 8-04 11-03 tablet by ity of tablet 00:00: 05:59 mouth 3 [place] 00 :00 (three) Medical times Branch daily for 90 days. cyclobenzap 2019-0 2020- No [id number] 10mg Take 1 Univers rine 10 mg 8-04 11-03 tablet by ity of tablet 00:00: 05:59 mouth 3 [place] 00 :00 (three) Medical times Branch daily for 90 days. gabapentin 2020-0 2020- No [id number] 600mg Take 1 Univers 600 mg 8-04 11-03 tablet by ity of tablet 00:00: 05:59 mouth 3 [place] 00 :00 (three) Medical times Branch daily for 90 days. cyclobenzap 2020- 2020- No [id number] 10mg Take 1 Univers rine 10 mg 8-04 11-03 tablet by ity of tablet 00:00: 05:59 mouth 3 [place] 00 :00 (three) Medical times Branch daily for 90 days. gabapentin 2020-0 2020- No [id number] 600mg Take 1 Univers 600 mg 8-04 11-03 tablet by ity of tablet 00:00: 05:59 mouth 3 [place] 00 :00 (three) Medical times Branch daily for 90 days. cyclobenzap 2020-0 2020- No [id number] 10mg Take 1 Univers rine 10 mg 8-04 11-03 tablet by ity of tablet 00:00: 05:59 mouth 3 [place] 00 :00 (three) Medical times Branch daily for 90 days. gabapentin 2020-0 2020- No [id number] 600mg Take 1 Univers 600 mg 8-04 11-03 tablet by ity of tablet 00:00: 05:59 mouth 3 [place] 00 :00 (three) Medical times Branch daily for 90 days. cyclobenzap 2020-0 2020- No [id number] 10mg Take 1 Univers rine 10 mg 8-04 11-03 tablet by ity of tablet 00:00: 05:59 mouth 3 [place] 00 :00 (three) Medical times Branch daily for 90 days. gabapentin 2020-0 2020- No [id number] 600mg Take 1 Univers 600 mg 8-04 11-03 tablet by ity of tablet 00:00: 05:59 mouth 3 [place] 00 :00 (three) Medical times Branch daily for 90 days. cyclobenzap 2020-0 2020- No [id number] 10mg Take 1 Univers rine 10 mg 8-04 11-03 tablet by ity of tablet 00:00: 05:59 mouth 3 [place] 00 :00 (three) Medical times Branch daily for 90 days. gabapentin 2020-0 2020- No [id number] 600mg Take 1 Univers 600 mg 8-04 11-03 tablet by ity of tablet 00:00: 05:59 mouth 3 [place] 00 :00 (three) Medical times Branch daily for 90 days. cyclobenzap 2020-0 2020- No [id number] 10mg Take 1 Univers rine 10 mg 8-04 11-03 tablet by ity of tablet 00:00: 05:59 mouth 3 [place] 00 :00 (three) Medical times Branch daily for 90 days. gabapentin 2020-0 2020- No [id number] 600mg Take 1 Univers 600 mg 8-04 11-03 tablet by ity of tablet 00:00: 05:59 mouth 3 [place] 00 :00 (three) Medical times Branch daily for 90 days. cyclobenzap 2020-0 2020- No [id number] 10mg Take 1 Univers rine 10 mg 8- 11-03 tablet by ity of tablet 00:00: 05:59 mouth 3 [place] 00 :00 (three) Medical times Branch daily for 90 days. gabapentin 2020-0 2020- No [id number] 600mg Take 1 Univers 600 mg 8- 11-03 tablet by ity of tablet 00:00: 05:59 mouth 3 [place] 00 :00 (three) Medical times Branch daily for 90 days. cyclobenzap 2020-0 2020- No [id number] 10mg Take 1 Univers rine 10 mg 8- 11-03 tablet by ity of tablet 00:00: 05:59 mouth 3 [place] 00 :00 (three) Medical times Branch daily for 90 days. gabapentin 2020-0 2020- No [id number] 600mg Take 1 Univers 600 mg 8- 11-03 tablet by ity of tablet 00:00: 05:59 mouth 3 [place] 00 :00 (three) Medical times Branch daily for 90 days. cyclobenzap 2020-0 2020- No [id number] 10mg Take 1 Univers rine 10 mg 8-10 29-03 tablet by ity of tablet 00:00: 05:59 mouth 3 [place] 00 :00 (three) Medical times Branch daily for 90 days. methylPREDN 2020-0 Yes [id number] Take by Univers ISolone 7-30 mouth ity of (MEDROL, 00:00: SEE-INSTRU [place] NGA,) 4 mg 00 CTIONS. Medica l tablets follow Branch package directions methylPREDN 2020-0 Yes [id number] Take by Univers ISolone 7-30 mouth ity of (MEDROL, 00:00: SEE-INSTRU [place] NGA,) 4 mg 00 CTIONS. Medica l tablets follow Branch package directions methylPREDN 2020-0 Yes [id number] Take by Univers ISolone 7-30 mouth ity of (MEDROL, 00:00: SEE-INSTRU [place] NGA,) 4 mg 00 CTIONS. Medica l tablets follow Branch package directions methylPREDN 2020-0 Yes [id number] Take by Univers ISolone 7-30 mouth ity of (MEDROL, 00:00: SEE-INSTRU [place] NGA,) 4 mg 00 CTIONS. Medica l tablets follow Branch package directions methylPREDN 2020-0 Yes [id number] Take by Univers ISolone 7-30 mouth ity of (MEDROL, 00:00: SEE-INSTRU [place] NGA,) 4 mg 00 CTIONS. Medica l tablets follow Branch package directions methylPREDN 2020-0 Yes [id number] Take by Univers ISolone 7-30 mouth ity of (MEDROL, 00:00: SEE-INSTRU [place] NGA,) 4 mg 00 CTIONS. Medica l tablets follow Branch package directions methylPREDN 2020-0 Yes [id number] Take by Univers ISolone 7-30 mouth ity of (MEDROL, 00:00: SEE-INSTRU [place] NGA,) 4 mg 00 CTIONS. Medica l tablets follow Branch package directions methylPREDN 2020-0 Yes [id number] Take by Univers ISolone 7-30 mouth ity of (MEDROL, 00:00: SEE-INSTRU [place] NGA,) 4 mg 00 CTIONS. Medica l tablets follow Branch package directions methylPREDN 2020-0 Yes [id number] Take by Univers ISolone 7-30 mouth ity of (MEDROL, 00:00: SEE-INSTRU [place]GA,) 4 mg 00 CTIONS. Medica l tablets follow Branch package directions methylPREDN 2020-0 Yes [id number] Take by Univers ISolone 7-30 mouth ity of (MEDROL, 00:00: SEE-INSTRU [place] NGA,) 4 mg 00 CTIONS. Medica l tablets follow Branch package directions methylPREDN 2020-0 Yes [id number] Take by Univers ISolone 7-30 mouth ity of (MEDROL, 00:00: SEE-INSTRU [place] NGA,) 4 mg 00 CTIONS. Medica l tablets follow Branch package directions methylPREDN 2020-0 Yes [id number] Take by Univers ISolone 7-30 mouth ity of (MEDROL, 00:00: SEE-INSTRU [place] NGA,) 4 mg 00 CTIONS. Medica l tablets follow Branch package directions methylPREDN 2020-0 Yes [id number] Take by Univers ISolone 7-30 mouth ity [...] 20:46: as needed [place] for Medical Insomnia. [place] pneumococca 2020-0 2020- No .5mL 0.5 mL, Un satinder l vac 7- 07-10 Intramuscu ity of polyvalent 19:30: 20:00 lar, ONCE, [place] (PNEUMOVAX- 00 :00 1 dose, Medic al 23) Fri Branch injection 01/28/20 at 0.5 mL 1430, Routine cyclobenzap 2020-0 Yes [id number] 5mg Take 1 Univers rine 5 mg 7-10 tablet by ity o f tablet 00:00: mouth 3 [place] 00 (three) Medical times Branch daily. cyclobenzap 2020-0 Yes [id number] 5mg Take 1 Univers rine 5 mg 7-10 tablet by ity o f tablet 00:00: mouth 3 (three) Medical times Branch daily. cyclobenzap 2020-0 Yes [id number] 5mg Take 1 Univers rine 5 mg 7-10 tablet by ity o f tablet 00:00: mouth 3 (three) Medical times Branch daily. cyclobenzap 2020-0 Yes [id number] 5mg Take 1 Univers rine 5 mg 7-10 tablet by ity o f tablet 00:00: mouth 3 (three) Medical times Branch daily. cyclobenzap 2020-0 Yes [id number] 5mg Take 1 Univers rine 5 mg 7-10 tablet by ity o f tablet 00:00: mouth 3 (three) Medical times Branch daily. cyclobenzap 2020-0 Yes [id number] 5mg Take 1 Univers rine 5 mg 7-10 tablet by ity o f tablet 00:00: mouth (three) Medical times Branch daily. cyclobenzap 2020-0 Yes [id number] 5mg Take 1 Univers rine 5 mg 7-10 tablet by ity o f tablet 00:00: mouth (three) Medical times Branch daily. cyclobenzap 2020-0 Yes [id number] 5mg Take 1 Univers rine 5 mg 7-10 tablet by ity o f tablet 00:00: mouth (three) Medical times Branch daily. cyclobenzap 2020-0 Yes [id number] 5mg Take 1 Univers rine 5 mg 7-10 tablet by ity o f tablet 00:00: mouth (three) Medical times Branch daily. cyclobenzap 2020-0 Yes [id number] 5mg Take 1 Univers rine 5 mg 7-10 tablet by ity o f tablet 00:00: mouth (three) Medical times Branch daily. cyclobenzap 2020-0 Yes [id number] 5mg Take 1 Univers rine 5 mg 7-10 tablet by ity o f tablet 00:00: mouth 3 (three) Medical times Branch daily. cyclobenzap 2020-0 Yes [id number] 5mg Take 1 Univers rine 5 mg 7-10 tablet by ity o f tablet 00:00: mouth 3 (three) Medical times Branch daily. cyclobenzap 2020-0 Yes [id number] 5mg Take 1 Univers rine 5 mg 7-10 tablet by ity o f tablet 00:00: mouth 3 00 (three) Medical times Branch daily. cyclobenzap 2020-0 Yes [id number] 5mg Take 1 Univers rine 5 mg 7-10 tablet by ity o f tablet 00:00: mouth 3 00 (three) Medical times Branch daily. cyclobenzap 2020-0 Yes [id number] 5mg Take 1 Univers rine 5 mg 7-10 tablet by ity o f tablet 00:00: mouth 3 [place] 00 (three) Medical times Branch daily. cyclobenzap 2020-0 Yes [id number] 5mg Take 1 Univers rine 5 mg 7-10 tablet by ity o f tablet 00:00: mouth 3 00 (three) Medical times Branch daily. cyclobenzap 2020-0 Yes [id number] 5mg Take 1 Univers rine 5 mg 7-10 tablet by ity o f tablet 00:00: mouth 3 00 (three) Medical times Branch daily. cyclobenzap 2020-0 Yes [id number] 5mg Take 1 Univers rine 5 mg 7-10 tablet by ity o f tablet 00:00: mouth 3 00 (three) Medical times Branch daily. cyclobenzap 2020-0 Yes [id number] 5mg Take 1 Univers rine 5 mg 7-10 tablet by ity o f tablet 00:00: mouth 3 00 (three) Medical times Branch daily. cyclobenzap 2020-0 Yes [id number] 5mg Take 1 Univers rine 5 mg 7-10 tablet by ity o f tablet 00:00: mouth 3 00 (three) Medical times Branch daily. HYDROcodone 2020-0 2019- No [id number] 1{tbl} Take [...] IV Push, ity of mg 23:20: Q3HPRN, [place] 12 Starting Medical Sadaf 01/27/20 Branch at 1820, Until Discontinu ed, Routine, severe pain not controlled by tylenol acetaminoph 2019-0 Yes 650mg 650 mg, Un satinder en 01-26 Oral, ity of (TYLENOL) 23:18: Q6HPRN, [place] tablet 650 26 Starting Medic al mg [facility] 01/27/20 Branch at 1818, Until Discontinu ed, Routine, Pain (scale 1-3), Temp > 38.5 C ceFAZolin 2019-0 2019- No 1000mg 1,000 mg, Univers (ANCEF) 01-26 IV ity of 1,000 mg in 23:15: 23:14 Piggyback, [place] NaCl 0.9% 00 :00 Q8H ABX, 3 [...] Sadaf Med ical tablet 1 01/27/20 at [place] tablet 1745, Routine, PACU HYDROmorpho 2020-0 2020- [...] mg 00 First dose Medical on Fri [place] 01/25/20 at 0900, Until Discontinu ed, Routine pantoprazol 2020-0 Yes 40mg 40 mg, Univ ers e 7- Oral, BID, ity of (PROTONIX) 01:00: First dose [place] EC tablet 00 on [facility] Medical 40 mg 01/24/20 at Branch 1999, Until Discontinu ed, Routine gabapentin 2020-0 Yes 300mg 300 mg, Uni vers (NEURONTIN) 01-24 Oral, TID, it y of capsule 300 01:00: First dose [place] mg 00 on [facility] Medical 01/24/20 at Branch 1999, Until Discontinu ed, Routine NaCl 0.9% 2020-0 Yes 1000mL at 50 Unive rs (NS) IV 7-06 mL/hr, IV ity of infusion 22:45: Infusion, [place] 1,000 mL 00 CONTINUOUS Medic al , Starting Branch [facility] 01/24/20 at 1745, Until Discontinu ed, Routine traZODone 2020-0 Yes 50mg 50 mg, Univer s (DESYREL) 01-23 Oral, ity of tablet 50 21:54: QHSPRN, [place] mg 43 Starting Medical [facility] 01/24/20 Branch at 1654, Until Discontinu ed, Routine, Insomnia ondansetron 2020-0 Yes 4mg 4 mg, Slow Univers (ZOFRAN 01-23 IV Push, ity of (PF)) 21:38: Q6HPRN, [place] injection 4 49 Starting Medi niranjan mg [facility] 01/24/20 Branch at 1638, Until Discontinu ed, Routine, Nausea and Vomiting (N/V) HYDROcodone 2020-0 Yes 1{tbl} 1 tablet, Univers -acetaminop 01-23 Oral, ity of hen (NORCO 21:38: Q4HPRN, [place] 5) 5-325 mg 49 Starting Medi niranjan tablet 1 [facility] 01/24/20 Bran h tablet at 1638, Until Discontinu ed, Routine, Pain (scale 7-10) traMADol 2020-0 Yes 50mg 50 mg, Univers (ULTRAM) 7- Oral, ity of tablet 50 21:38: Q4HPRN, [place] mg 49 Starting Medical [facility] 01/24/20 Branch at 1638, Until Discontinu ed, Routine, Pain (scale 4-6) acetaminoph 2020-0 2020- No 650mg 650 mg, U nivers en 01-23 07-06 Oral, ity of (TYLENOL) 15:00: 14:45 ONCE, 1 [place] tablet 650 00 :00 dose, Mon Medi niranjan mg 01/24/20 at Branch 1000, MC gadoteridol 2020-0 2020- No .2mL/kg 14.42 mL Univers (PROHANCE-1 01-23 0706 (0.2 mL/kg i ty of 5 mL) 02:30: 02:00 ?72.1 kg), [place] injection 00 :00 Intravenou Medi niranjan 14.42 mL s, ONCE, 1 Branc h dose, 01/23/20 at 2130, Routine traZODone 2020-0 Yes 50mg Take 50 mg Un satinder 50 mg 7-03 by mouth ity of tablet 18:45: as needed [place] [address] for Medical Insomnia. Branch traZODone 2020-0 Yes 50mg Take 50 mg Un satinder 50 mg 7-03 by mouth ity of tablet 18:45: as needed [place] 45 for Medical Insomnia. Branch gabapentin 2020-0 Yes [id number] 300mg Take 1 Univers 300 mg 7-03 capsule by ity of capsule 00:00: mouth 3 [place] [address] ([facility]) Medical times Branch daily. gabapentin 2020-0 Yes [id number] 300mg Take 1 Univers 300 mg 7-03 capsule by ity of capsule 00:00: mouth 3 [place] ([facility]) Medical times Branch daily. gabapentin 2020-0 Yes [id number] 300mg Take 1 Univers 300 mg 7-03 capsule by ity of capsule 00:00: mouth 3 [place] ([facility]) Medical times Branch daily. gabapentin 2020-0 Yes [id number] 300mg Take 1 Univers 300 mg 7-03 capsule by ity of capsule 00:00: mouth [address] [place] [address] 00 ([facility]) Medical times Branch daily. gabapentin 2020-0 Yes [id number] 300mg Take 1 Univers 300 mg 7-03 capsule by ity of capsule 00:00: mouth 3 [place] 00 (three) Medical times Branch daily. gabapentin 2020-0 Yes [id number] 300mg Take 1 Univers 300 mg 7-03 capsule by ity of capsule 00:00: mouth 3 [place] 00 (three) Medical times Branch daily. gabapentin 2020-0 Yes [id number] 300mg Take 1 Univers 300 mg 7-03 capsule by ity of capsule 00:00: mouth 3 [place] 00 (three) Medical times Branch daily. gabapentin 2020-0 Yes [id number] 300mg Take 1 Univers 300 mg 7-03 capsule by ity of capsule 00:00: mouth (three) Medical times Branch daily. gabapentin 2020-0 Yes [id number] 300mg Take 1 Univers 300 mg 7-03 capsule by ity of capsule 00:00: mouth (three) Medical times Branch daily. gabapentin 2020-0 Yes [id number] 300mg Take 1 Univers 300 mg 7-03 capsule by ity of capsule 00:00: mouth (three) Medical times Branch daily. gabapentin 2020-0 Yes [id number] 300mg Take 1 Univers 300 mg 7-03 capsule by ity of capsule 00:00: mouth (three) Medical times Branch daily. gabapentin 2020-0 Yes [id number] 300mg Take 1 Univers 300 mg 7-03 capsule by ity of capsule 00:00: mouth (three) Medical times Branch daily. gabapentin 2020-0 Yes [id number] 300mg Take 1 Univers 300 mg 7-03 capsule by ity of capsule 00:00: mouth () Medical times Branch daily. gabapentin 2020-0 Yes [id number] 300mg Take 1 Univers 300 mg 7-03 capsule by ity of capsule 00:00: mouth () Medical times Branch daily. gabapentin 2020-0 Yes [id number] 300mg Take 1 Univers 300 mg 7-03 capsule by ity of capsule 00:00: mouth () Medical times Branch daily. gabapentin 2020-0 Yes [id number] 300mg Take 1 Univers 300 mg 7-03 capsule by ity of capsule 00:00: mouth (three) Medical times Branch daily. gabapentin 2020-0 Yes [id number] 300mg Take 1 Univers 300 mg 7-03 capsule by ity of capsule 00:00: mouth (three) Medical times Branch daily. gabapentin 2020-0 Yes [id number] 300mg Take 1 Univers 300 mg 7-03 capsule by ity of capsule 00:00: mouth (three) Medical times Branch daily. gabapentin 2020-0 Yes [id number] 300mg Take 1 Univers 300 mg 7-03 capsule by ity of capsule 00:00: mouth 3 (three) Medical times Branch daily. gabapentin 2020-0 Yes [id number] 300mg Take 1 Univers 300 mg 7-03 capsule by ity of capsule 00:00: mouth (three) Medical times Branch daily. gabapentin 2020-0 Yes [id number] 300mg Take 1 Univers 300 mg 7-03 capsule by ity of capsule 00:00: mouth 3 (three) Medical times Branch daily. gabapentin 2020-0 Yes [id number] 300mg Take 1 Univers 300 mg 7-03 [...] ity of tablet 00:00: mouth 2 [place] (two) Medical times Branch daily. albuterol 2018-0 Yes 2{puff} Inhale 2 U nivers 90 9-11 Puffs ity of mcg/actuati 00:00: every 6 [place] as on inhaler 00 (six) Medical hours as Branch needed for Wheezing or Shortness of Breath. pantoprazol 2018-0 Yes 40mg Take 1 Univ ers e 40 mg EC 9-11 tablet by ity of tablet 00:00: mouth 2 [place] (two) Medical times Branch daily. albuterol 2018-0 Yes 2{puff} Inhale 2 U nivers 90 9-11 Puffs ity of mcg/actuati 00:00: every 6 [place] on inhaler 00 (six) Medical hours as Branch needed for Wheezing or Shortness of Breath. pantoprazol 2017-0 Yes 40mg Take 1 Univ ers e 40 mg EC 9-11 tablet by ity of tablet 00:00: mouth 2 [place] (two) Medical times Branch daily. albuterol 2018-0 Yes 2{puff} Inhale 2 U nivers 90 9-11 Puffs ity of mcg/actuati 00:00: every 6 [place] as on inhaler 00 (six) Medical hours as Branch needed for Wheezing or Shortness of Breath. Immunizations Ordered Filled Immunization Date Status Comments [facility] e Immunization Name Name Pneumococcal 2020-01-28 Completed University [...] 16:13:00 137 mm[Hg] Univer sity of pressure [facility] Diastolic blood 2020-04-04 16:13:00 82 mm[Hg] Unive rsity of pressure [facility] Heart rate 2020-04-04 16:13:00 101 /min [facility] Body height 2020-04-04 16:13:00 157.5 cm [facility] Body weight 2020-04-04 16:13:00 72.576 kg Universi ty of [place] [facility] BMI 2020-04-04 16:13:00 29.26 kg/m2 Universi ty of [place] [facility] Systolic blood 2020-04-04 16:13:00 137 mm[Hg] Univer sity of pressure [place] [facility] Diastolic blood 2020-04-04 16:13:00 82 mm[Hg] Unive rsity of pressure [facility] Branch Heart rate 2020-04-04 16:13:00 101 /min Universi ty of [place] [facility] Body height 2020-04-04 16:13:00 157.5 cm Universi ty of [place] [facility] Body weight 2020-04-04 16:13:00 72.576 kg Universi ty of [facility] Branch BMI 2020-04-04 16:13:00 29.26 kg/m2 Universi ty of [facility] Systolic blood 2020-03-02 13:56:00 128 mm[Hg] Univer sity of pressure [facility] Branch Diastolic blood 2020-03-02 13:56:00 78 mm[Hg] Unive rsity of pressure [facility] Branch Heart rate 2020-03-02 13:55:00 100 /min Universi ty of [facility] Respiratory rate 2020-03-02 13:55:00 16 /min Univ ersity of [facility] Body height 2020-03-02 13:55:00 157.5 cm Universi ty of [place] [facility] Body weight 2020-03-02 13:55:00 73.755 kg Universi ty of [place] [facility] BMI 2020-03-02 13:55:00 29.74 kg/m2 Universi ty of [facility] Branch Oxygen saturation in 2020-03-02 13:55:00 98 /min University Arterial blood by [facility] Pulse oximetry Branch Systolic blood 2020-02-22 19:48:00 128 mm[Hg] Univer sity of pressure [facility] Branch Diastolic blood 2020-02-22 19:48:00 77 mm[Hg] Unive rsity of pressure [facility] Branch Heart rate 2020-02-22 19:48:00 109 /min Universi ty of [facility] Body height 2020-02-22 19:48:00 157.5 cm Universi ty of [facility] Branch Body weight 2020-02-22 19:48:00 72.984 kg Universi ty of [facility] BMI 2020-02-22 19:48:00 29.43 kg/m2 Universi ty of [facility] Systolic blood 2020-01-28 16:24:00 126 mm[Hg] Univer sity of pressure [facility] Diastolic blood 2020-01-28 16:24:00 64 mm[Hg] Unive rsity of pressure [facility] Heart rate 2020-01-28 16:24:00 88 /min Universi ty of [facility] Body temperature 2020-01-28 16:24:00 36.67 Stefany Univ ersity of [facility] Respiratory rate 2020-01-28 16:24:00 18 /[facility] 2020-01-28 16:24:00 97 /min [facility] Arterial blood by [facility] Pulse oximetry Branch Body height 2020-01-25 02:01:00 157.5 cm Universi ty of [facility] Body weight 2020-01-25 02:01:00 67.586 kg Universi ty of [facility] BMI 2020-01-25 02:01:00 27.25 kg/m2 Universi ty [facility] Systolic blood 2020-01-21 18:46:00 143 mm[Hg] Univer sity of [facility] Diastolic blood 2020-01-21 18:46:00 84 mm[Hg] Unive rsity of [facility] Heart rate 2020-01-21 18:46:00 76 /min Universi ty of [facility] Body temperature 2020-01-21 18:43:00 37.17 Stefany Univ ersity of [facility] Respiratory rate 2020-01-21 18:43:00 15 /min Univ ersity of [facility] Body height 2020-01-21 18:43:00 157.5 cm [facility] Body weight 2020-01-21 18:43:00 72.122 kg [facility] BMI 2020-01-21 18:43:00 29.08 kg/m2 Universi ty [facility] Procedures Procedure Date / Time Performing Clinician Source Performed PATIENT QUESTIONNAIRE 2020-03-02 05:01:00 Doctor Unassigned, No [facility] BASIC METABOLIC PANEL 2020-01-28 09:58:00 iWlfredo Devine [facility] (NA, K, CL, CO2, Medical Branch GLUCOSE, BUN, CREATININE, CA) CBC WITH DIFFERENTIAL 2020-01-28 09:58:00 Wilfredo Devine [facility] XR LUMBAR SPINE 1 VW 2020-01-27 20:09:01 Eris Marcano U [facility] XR LUMBAR SPINE 1 VW 2020-01-27 19:46:40 Eris Marcano U [facility] LAMINECTOMY LUMBAR WITH 2020-01-27 18:12:00 Qian Andrade [facility] DISCECTOMY Medical Branch URINE CULTURE 2020-01-27 17:19:00 Nilson [facility] PROTHROMBIN TIME / INR 2020-01-27 12:35:00 Wilfredo Devine [facility] ACTIVATED PARTIAL 2020-01-27 12:35:00 Nilson [facility] HB ABO GROUPING 2020-01-27 12:30:00 Nilson [facility] CBC WITH DIFFERENTIAL 2020-01-27 10:04:00 [facility] 2020-01-27 10:04:00 Nilson [facility] (NA, K, CL, CO2, Medical Branch GLUCOSE, BUN, CREATININE, CA) CBC WITH DIFFERENTIAL 2020-01-26 09:35:00 Nilson [facility] BASIC METABOLIC PANEL 2020-01-26 09:35:00 Wilfredo Devine [facility] (NA, K, CL, CO2, Medical Branch GLUCOSE, BUN, CREATININE, CA) CBC WITH DIFFERENTIAL 2020-01-25 09:15:00 Wilfredo Devine [facility] BASIC METABOLIC PANEL 2020-01-25 09:15:00 Nilson [facility] (NA, K, CL, CO2, Medical Branch GLUCOSE, BUN, CREATININE, CA) PROTHROMBIN TIME / INR 2020-01-25 00:22:00 Wilfredo Devine [facility] ACTIVATED PARTIAL 2020-01-25 00:22:00 Nilson [facility] FIBRINOGEN 2020-01-25 00:22:00 Wilfredo Devine [facility] BASIC METABOLIC PANEL 2020-01-25 00:22:00 [facility] (NA, K, CL, CO2, Medical Branch GLUCOSE, BUN, CREATININE, CA) CBC WITH DIFFERENTIAL 2020-01-25 00:21:00 [facility] MR LUMBAR SPINE W WO 2020-01-24 02:15:00 Shin Albarran [facility] Branch COVID-19 (ID NOW RAPID 2020-01-24 00:01:00 Shin Albarran [facility] TESTING) Medical Branch URINALYSIS 2020-01-23 22:59:00 [facility] BASIC METABOLIC PANEL 2020-01-23 22:58:00 [facility] (NA, K, CL, CO2, Medical Branch GLUCOSE, BUN, CREATININE, CA) Encounters Start End Encounter Admission Attending Care Care Encounter Source Date/Time Date/Time Type Type Clinicians Facility Department ID 2022-08-09 Outpatient [facility] [id number] [place] 09:09:35 [id number] [facility] 2021-05-18 Emergency [facility] [id number] Univers 04:44:59 [facility] 2022-09-03 2022-09-03 [id number] [place] 11:00:00 11:00:00 [facility] 2021-09-03 2021-09-03 Telephone Francisco Sharma [facility] 1.2.840.114 [id number] [place] 00:00:00 00:00:00 ORTHO AND [id number] Health SP[place] 9.2.7.2.686 MEDICAL [id number] [address] 2021-05-11 2021-05-11 Inpatient VIRIDIANA TitusFederico [facility] LA00 [id number] [facility] 17:52:00 21:42:00 14 [facility] 2020-10-10 2020-10-10 Patient Alek [facility] 1.2.840.114 [id number] Univers 00:00:00 00:00:00 Outreach Mohit PRIMARY [id number] i ty of [facility] [place] [id number] [address] 2020-10-10 2020-10-10 Patient Alek [facility] 1.2.840.114 [id number] 00:00:00 00:00:00 Outreach Mohit PRIMARY 350.1.13.10 [facility] 4.2.7.2.686 PAVILLION [id number] 2020-04-04 2020-04-04 Outpatient R NITIN [facility] [id number] Univers 11:15:00 11:15:00 QIAN ity [facility] 2020-04-04 2020-04-04 Outpatient R NITIN [facility] [id number] Univers 11:15:00 11:15:00 [facility]-04-04 2020-04-04 [facility] 1.2.840.114 [id number] Univers 10:33:36 10:48:36 Visit [facility] 350.1.13.10 ity [place] [id number] [address] Office Building 2020-04-04 2020-04-04 [facility] 1.2.840.114 [id number] 10:33:36 10:48:36 Visit [facility] Glocal 350.1.13.10 [place] 4.2.7.2.686 [place] [id number] [place] [address] Office Building 2020-03-29 2020-03-29 Outpatient R NITIN [facility] [id number] Univers 11:15:00 11:15:00 QIAN ity [facility] 2020-03-24 2020-03-24 Telephone Nitin [facility] 1.2.840.114 [id number] Univers 00:00:00 00:00:00 Qian [facility] 350.1.13.10 [place] [id number] [address] Office Building 2020-03-23 2020-03-23 Outpatient R NASREEN [facility] [id number] Univers 14:30:00 14:30:00 [facility] 2020-03-23 2020-03-23 Telephone Nasreen [facility] 1.2.840.114 [id number] Univers 00:00:00 00:00:00 [facility] 350.1.13.10 ity of [place] [id number] [address] [facility] 2020-03-15 2020-03-15 Outpatient R NITIN [facility] [id number] Univers 10:30:00 10:30:00 QIAN ity [facility] 2020-03-02 2020-03-02 Office [facility] 1.2.840.114 [id number] Univers 08:38:55 10:24:57 Visit [facility] 350.1.13.10 ity of [place] 4.2.7.2.686 [facility] [place] [id number] [address] [facility] 2020-03-02 2020-03-02 Outpatient R NASREEN [facility] [id number] Univers 09:00:00 09:00:00 [facility] 2020-03-02 2020-03-02 Orders Doctor ANU 1.2.840.114 [id number] Univers 00:00:00 00:00:00 Only Unassigned, TRAY 350.1.13.10 ity of [facility] 4.2.7.2.686 [place] [id number] [address] 2020-02-22 2020-02-22 Office [facility] 1.2.840.114 [id number] Univers 13:48:46 15:34:27 Visit [facility] 350.1.13.10 [place] [id number] [address] Office Building 2020-02-22 2020-02-22 Outpatient Radha ANDRADE [facility] [id number] Univers 14:15:00 14:15:00 [facility] 2020-02-17 2020-02-17 Telephone [facility] 1.2.840.114 [id number] Univers 00:00:00 00:00:00 [facility] 350.1.13.10 [place] [id number] [address] Office Building 2020-02-11 2020-02-11 Office Clinic, Neurosurgery Residen t [facility] 1.2.840.114 [id number] Univers 12:40:36 14:03:[address] [facility] 350.1.13 .10 ity of CL[place] [id number] [address] 2020-02-11 2020-02-11 Outpatient R [facility] [id number] Univers 13:00:00 13:00:00 [facility] ity [facility] 2020-02-03 2020-02-[address] [facility] 1.2.840.114 [id number] Univers 00:00:00 00:00:00 [facility] 350.1.13.10 it[place] [id number] [address] Office Building 2020-01-31 2020-01-31 Transition Kristina Marie 1.2.840.114 [id number] Univers 00:00:00 00:00:00 of Care Michaela Alanis 350.1.13.10 ity [place] [id number] [address] 2020-01-23 2020-01-28 Hospital Jenelle Guardado 1.2.84 0.114 [id number] Univers 16:20:21 15:18:00 Encounter Eduin Bansal 350.1.13.1 0 ity of [facility] 4.2.7.2.686 [facility] [phone] [address] 2020-01-25 2020-01-25 Telephone ANU Albarran 1.2.840.114 [id number] Univers 00:00:00 00:00:00 Shin TRAY 350.1.13.10 it y of HOSPITAL 4.2.7.2.686 [place] [id number] [facility] 019 Branch 2020-01-21 2020-01-21 Office Matt JOSEERIKA 1.2.840.114 [id number] Univers 13:30:27 14:00:27 Visit Yadi Fortune [facility] 350.1.13.10 ity of [facility] 4.2.7.2.686 [place] [id number] [facility] 196 Branch 2020-01-21 2020-01-21 [facility] [id number] Univers 13:15:00 13:15:00 YADI [facility] 2017-03-26 2017-03-26 Emergency E [facility] [id number] Medical 14:55:00 14:55:00 [facility] 2017-03-07 2017-03-07 Emergency E [facility] [id number] Medical 17:01:00 17:01:00 [facility] 2017-02-22 2017-02-22 Emergency E [facility] [id number] Medical 11:40:00 11:40:00 [facility] Results Test Description Test Time Test Comments Results Result [facility] e Comments - CT ABD PELVIS 2021-05-11 W/CONT 20:45:00 [facility] 1965 Sex: F Name: KEKE HAYNES [facility] : 1965 Age/S: 55 / F [id number] [address] [place] Unit #: [id number] Loc: Shirley Dominguez [address] Phys: Federico Qureshi DO Acct: [id number] Dis Date: Status: REG ER PHONE #: [phone] Exam Date: 05/11/20212029 FAX #: Reason: pain - s/p colonoscopy yesterday EXAMS: CPT: [id number] CT ABD PELVIS W/CONT 74448 EXAMINATION: - CT ABD PELVIS W/CONT COMPARISON: [...] HAYNES : 1965 Age/S: 55 / F [address] [address] [place] Unit #: [id number] Loc: Shirley Dominguez [address] Phys: Federico Qureshi DO Acct: [id number] Dis Date: Status: REG ER PHONE #: [phone] Exam Date: 05/11/20212029 FAX #: Reason: pain - s/p colonoscopy yesterday EXAMS: CPT: [id number] CT ABD PELVIS W/CONT 57451 (Continued) No evidence of bowel perforation or other acute abnormality Dilated common bile duct and intrahepatic biliary system. In the absence of abnormal laboratory values, findings may be related to reservoir effect secondary to the patient's cholecystectomy status at 2044 Reported and signed by: Silvia Olmedo M.D. CC: Federico Qureshi DO Technologist:Jonelle Mazariegos RT (R)(CT) CTDI: DLP: Trnscb Date/Time: 05/11/2021 (2044) [email or web address] Orig Print D/T: S: 05/11/2021 (2047) PAGE 2 Signed Report LIPASE 2021-05-11 19:26:00 Test Item Value Reference Range Interpretation Comme nts LIPASE (test code = LIP) 73 Unit/L 114-286 L BASIC METABOLIC [id number] 19:26:00 Test Item Value Reference Range Interpretation [...] CA) 9.5 MG/DL 8.5-10.1 N HEPATIC FUNCTION [id number] 19:26:00 Test Item Value Reference Range Interpretation [...] = ALKP) UA RFLX MICR CULT IF [id number] 19:08:00 Test Item Value Reference Range Interpretation [...] BACU) Indication for culture: Flank PainCBC W/AUTO [id number] 18:41:00 Test Item Value Reference Range Interpretation [...] code NO DIFF/SCN CRITERIA = MDIFF) URINE [id number] 11:57:00 Test Item Value Reference Range Interpretation Comments URINE CULTURE (test No aerobic organisms code = 630-4) isolated [facility] METABOLIC PANEL (NA, K, CL, CO2, GLUCOSE, BUN, CREATININE, CA)2020-01-28 10:47:00 Test Item Value Reference Range Interpretation Comments NA (test code = 135 mmol/L 135-145 8980389238) K (test code = 4.0 mmol/L 3.5-5 3462538267) CL (test code = 104 mmol/L 98-108 3857345077) CO2 TOTAL (test code = 26 mmol/L 23-31 2323907748) AGAP (test code = 2-16 5763246010) BUN (test code = 7 mg/dL 7-23 1426508393) GLUCOSE (test code = 128 mg/dL 70-110 H 9269582474) CREATININE (test code = 0.42 mg/dL 0.5-1.04 L 6724603334) CALCIUM (test code = 9.1 mg/dL 8.6-10.6 7270207959) eGFR Calculation mL/min/1.73m2 (Non-) (test code = 2159110006) eGFR Calculation mL/min/1.73m2 () (test code = 0410952755) SOLEDAD (test code = SOLEDAD) Association of [...] tests). Lab Interpretation Abnormal (test code = 62637-4) [facility] WITH [id number] 10:28:00 Test Item Value Reference Range Interpretation [...] RDW-SD (test code = 40.6 fL 39-49.9 57598-3) RDW-CV (test code = 12.2 % 12-15.5 788-0) PLT (test code = See_Comment [Automated 777-3) message] The system which generated this result transmit sherry reference range : 166 - 358 10*3/ ?L. The reference range was not u sed to interpret th is result as normal/abnormal . MPV (test code = 8.8 fL 9.5-12.9 L 42327-4) NRBC/100 WBC (test See_Comment [Automat ed code = 3428715371) message] The system which generated this result transmit sherry reference range : 0.0 - 10.0 /100 WBCs. The reference range was not used to interpret this result as normal/abnormal . NRBC x10^3 (test code <0.01 See_Comment [Auto mated = 9587810231) message] The system which generated this result transmit sherry reference range : 10*3/?L. The reference range was not used to interpret this result as normal/abnormal . GRAN MAT (NEUT) % 84.9 % (test code = 770-8) IMM GRAN % (test code 0.40 % = 7147825280) LYMPH % (test code = 10.7 % 736-9) MONO % (test code = 3.7 % 5905-5) EOS % (test code = 0.1 % 713-8) BASO % (test code = 0.2 % 706-2) GRAN MAT x10^3(ANC) 10.00 10*3/uL 1.88-7.09 H (test code = 6143019793) IMM GRAN x10^3 (test 0.05 10*3/uL 0-0.06 code = 7360991545) LYMPH x10^3 (test code 1.26 10*3/uL 1.32-3.29 L = 731-0) MONO x10^3 (test code 0.43 10*3/uL 0.33-0.92 = 742-7) EOS x10^3 (test code = <0.03 0.03-0.39 L 711-2) BASO x10^3 (test code <0.03 0.01-0.07 = 704-7) Lab Interpretation Abnormal (test code = 26303-6) [facility] 1 [id number] 20:33:47 Lateral intraoperative radiographs of the lumbar [...] Inferior localizing instrumenttip is identified at L5-S1 level.[facility] 1 [id number] 19:58:40 Single lateral intraoperative radiograph of the [...] at the level of the L5 vertebral body.[facility] Dallas[facility] / [id number] 13:21:00 Test Item Value Reference Range Interpretation Comments PROTIME PATIENT (test See_Comment [Auto mated message] code = 5964-2) The system [employer] generated this result transmitted ref erence range: 10.1 - 1 2.6 Seconds. The re ference range was not u sed to interpret this result as normal/abnor mal. INR (test code = 6301-6) Nor mal INR <1.1; Warfarin Therap eutic range 2.0 to 3. 0 or 2.5 to 3.5, dep ending upon the indica tions. Lab Interpretation (test Normal code = 13565-8) [facility] 13:21:00 Test Item Value Reference Range Interpretation Comments APTT Patient (test code See_Comment H [Au tomated message] = 3173-2) The system [employer] generated this result transmitted ref erence range: 26 - 36 Seconds. The reference range was not used to int erpret this result as normal/abnormal . Lab Interpretation (test Abnormal code = 61536-1) [facility] Screen - ONCE [id number] 13:15:10 Test Item Value Reference Range Interpretation Comments ABO & RH (test code O POSITIVE Performe d at [facility] = 20) [facility] Blood [facility] [address] [facility] [address]Xjdi Free: [phone] A No. [id number] IAT (test code = Negative Performed a t [facility] 1185) [facility] [address] [facility] [address]Lhqp Free: [phone] A No. [id number] [facility] (NA, K, CL, CO2, GLUCOSE, BUN, CREATININE, CA)2020-01-27 10:53:00 Test Item Value Reference Range Interpretation Comments NA (test code = 138 mmol/L 135-145 7535678072) K (test code = 3.7 mmol/L 3.5-5 4037505489) CL (test code = 105 mmol/L 98-108 3118852106) CO2 TOTAL (test code = 26 mmol/L 23-31 1077875540) AGAP (test code = 2-16 6255020043) BUN (test code = 13 mg/dL 7-23 5768551899) GLUCOSE (test code = 98 mg/dL 70-110 3257683713) CREATININE (test code 0.51 mg/dL 0.5-1.04 = 2277631811) CALCIUM (test code = 9.1 mg/dL 8.6-10.6 3297331948) eGFR Calculation mL/min/1.73m2 (Non-) (test code = 9073187095) eGFR Calculation mL/min/1.73m2 () (test code = 2733188515) SOLEDAD (test code = SOLEDAD) Association of [...] or urine or abnormalities in imaging tests). [facility] WITH [id number] 10:32:00 Test Item Value Reference Range Interpretation Comments WBC (test code = See_Comment [Automated 7952-2) message] The sy stem which generated this result transmitted reference range : 4.30 - 11.10 10*3/?L. The reference range was not used to interpret this result as normal/abnormal . RBC (test code = See_Comment [Automated 645-8) message] The sy stem which generated this [...] RDW-SD (test code = 39.8 fL 39-49.9 37414-8) RDW-CV (test code = 12.2 % 12-15.5 788-0) PLT (test code = See_Comment [Automated 777-3) message] The sy stem which generated this result transmitted reference range : 166 - 358 10*3/ ?L. The reference r john was not used to interpret this result as normal/abnormal . MPV (test code = 8.5 fL 9.5-12.9 L 76656-6) NRBC/100 WBC (test See_Comment [Automat ed code = 3246908482) message] The system which generated this result transmitted reference range : 0.0 - 10.0 /100 WBCs. The refer ence range was not u sed to interpret th is result as normal/abnormal . NRBC x10^3 (test code <0.01 See_Comment [Auto mated = 8288983171) message] The s ystem which generated this result transmitted reference range : 10*3/?L. The reference range was not used to interpret this result as normal/abnormal . GRAN MAT (NEUT) % 44.4 % (test code = 770-8) IMM GRAN % (test code 0.30 % = 1042813521) LYMPH % (test code = 42.7 % 736-9) MONO % (test code = 7.1 % 5905-5) EOS % (test code = 4.9 % 713-8) BASO % (test code = 0.6 % 706-2) GRAN MAT x10^3(ANC) 2.81 10*3/uL 1.88-7.09 (test code = 1759836626) IMM GRAN x10^3 (test <0.03 0-0.06 code = 0433379446) LYMPH x10^3 (test code 2.71 10*3/uL 1.32-3.29 = 731-0) MONO x10^3 (test code 0.45 10*3/uL 0.33-0.92 = 742-7) EOS x10^3 (test code = 0.31 10*3/uL 0.03-0.39 711-2) BASO x10^3 (test code 0.04 10*3/uL 0.01-0.07 = 704-7) Lab Interpretation Abnormal (test code = 41550-8) [facility] METABOLIC PANEL (NA, K, CL, CO2, GLUCOSE, BUN, CREATININE, CA)2020-01-26 11:01:00 Test Item Value Reference Range Interpretation Comments NA (test code = 135 mmol/L 135-145 4533291787) K (test code = 4.3 mmol/L 3.5-5 Slight 2259022689) hemolysis CL (test code = 105 mmol/L 98-108 1080805396) CO2 TOTAL (test code 22 mmol/L 23-31 L = 8473481847) AGAP (test code = 2-16 8147836036) BUN (test code = 17 mg/dL 7-23 Slight 9838379268) hemolysis GLUCOSE (test code = 103 mg/dL 70-110 0084247961) CREATININE (test code 0.59 mg/dL 0.5-1.04 = 9496212269) CALCIUM (test code = 9.3 mg/dL 8.6-10.6 4644857863) eGFR Calculation mL/min/1.73m2 (Non-) (test code = 3679407193) eGFR Calculation mL/min/1.73m2 () (test code = 8482717636) SOLEDAD (test code = SOLEDAD) Association of [...] tests). Lab Interpretation Abnormal (test code = 52346-9) [facility] WITH [id number] 10:18:00 Test Item Value Reference Range Interpretation Comments WBC (test code = See_Comment [Automated 0844-2) message] The sy stem which generated this result transmitted reference range : 4.30 - 11.10 10*3/?L. The reference range was not used to interpret this result as normal/abnormal . RBC (test code = See_Comment [Automated 159-8) message] The sy stem which generated this [...] RDW-SD (test code = 40.5 fL 39-49.9 23446-7) RDW-CV (test code = 12.2 % 12-15.5 788-0) PLT (test code = See_Comment H [Automated 777-3) message] The sy stem which generated this result transmitted reference range : 166 - 358 10*3/ ?L. The reference r john was not used to interpret this result as normal/abnormal . MPV (test code = 9.1 fL 9.5-12.9 L 37542-8) NRBC/100 WBC (test See_Comment [Automat ed code = 6241746800) message] The system which generated this result transmitted reference range : 0.0 - 10.0 /100 WBCs. The refer ence range was not u sed to interpret th is result as normal/abnormal . NRBC x10^3 (test code <0.01 See_Comment [Auto mated = 3574477576) message] The s ystem which generated this result transmitted reference range : 10*3/?L. The reference range was not used to interpret this result as normal/abnormal . GRAN MAT (NEUT) % 44.6 % (test code = 770-8) IMM GRAN % (test code 0.10 % = 8562256030) LYMPH % (test code = 42.5 % 736-9) MONO % (test code = 7.2 % 5905-5) EOS % (test code = 5.2 % 713-8) BASO % (test code = 0.4 % 706-2) GRAN MAT x10^3(ANC) 3.01 10*3/uL 1.88-7.09 (test code = 6815733441) IMM GRAN x10^3 (test <0.03 0-0.06 code = 9010635660) LYMPH x10^3 (test code 2.88 10*3/uL 1.32-3.29 = 731-0) MONO x10^3 (test code 0.49 10*3/uL 0.33-0.92 = 742-7) EOS x10^3 (test code = 0.35 10*3/uL 0.03-0.39 711-2) BASO x10^3 (test code 0.03 10*3/uL 0.01-0.07 = 704-7) Lab Interpretation Abnormal (test code = 19348-6) [facility] WITH [id number] 10:55:00 Test Item Value Reference Range Interpretation Comments WBC (test code = See_Comment [Automated 9490-2) message] The sy stem which generated this result transmitted reference range : 4.30 - 11.10 10*3/?L. The reference range was not used to interpret this result as normal/abnormal . RBC (test code = See_Comment [Automated 379-8) message] The sy stem which generated this [...] RDW-SD (test code = 41.4 fL 39-49.9 56084-0) RDW-CV (test code = 12.5 % 12-15.5 788-0) PLT (test code = See_Comment [Automated 777-3) message] The sy stem which generated this result transmitted reference range : 166 - 358 10*3/ ?L. The reference r john was not used to interpret this result as normal/abnormal . MPV (test code = 9.2 fL 9.5-12.9 L 29193-6) NRBC/100 WBC (test See_Comment [Automat ed code = 3264561601) message] The system which generated this result transmitted reference range : 0.0 - 10.0 /100 WBCs. The refer ence range was not u sed to interpret th is result as normal/abnormal . NRBC x10^3 (test code <0.01 See_Comment [Auto mated = 8849969040) message] The s ystem which generated this result transmitted reference range : 10*3/?L. The reference range was not used to interpret this result as normal/abnormal . GRAN MAT (NEUT) % 31.3 % (test code = 770-8) IMM GRAN % (test code 0.20 % = 0128043807) LYMPH % (test code = 53.1 % 736-9) MONO % (test code = 8.6 % 5905-5) EOS % (test code = 6.3 % 713-8) BASO % (test code = 0.5 % 706-2) GRAN MAT x10^3(ANC) 1.79 10*3/uL 1.88-7.09 L (test code = 0036823422) IMM GRAN x10^3 (test <0.03 0-0.06 code = 4090687522) LYMPH x10^3 (test code 3.04 10*3/uL 1.32-3.29 = 731-0) MONO x10^3 (test code 0.49 10*3/uL 0.33-0.92 = 742-7) EOS x10^3 (test code = 0.36 10*3/uL 0.03-0.39 711-2) BASO x10^3 (test code 0.03 10*3/uL 0.01-0.07 = 704-7) REACT LYMPHS (test Moderate code = 1750205945) Lab Interpretation Abnormal (test code = 62266-8) [facility] METABOLIC PANEL (NA, K, CL, CO2, GLUCOSE, BUN, CREATININE, CA)2020-01-25 10:38:00 Test Item Value Reference Range Interpretation Comments NA (test code = 139 mmol/L 135-145 [id number]) K (test code = 4.0 mmol/L 3.5-5 6379759901) CL (test code = 105 mmol/L 98-108 7206622302) CO2 TOTAL (test code = 26 mmol/L 23-31 7361121035) AGAP (test code = 2-16 0971322030) BUN (test code = 12 mg/dL 7-23 0092799652) GLUCOSE (test code = 99 mg/dL 70-110 8394614987) CREATININE (test code = 0.47 mg/dL 0.5-1.04 L 9337383620) CALCIUM (test code = 9.2 mg/dL 8.6-10.6 7724977195) eGFR Calculation mL/min/1.73m2 (Non-) (test code = 2710389601) eGFR Calculation mL/min/1.73m2 () (test code = 6005682849) SOLEDAD (test code = SOLEDAD) Association of [...] tests). Lab Interpretation Abnormal (test code = 52454-5) [facility] METABOLIC PANEL (NA, K, CL, CO2, GLUCOSE, BUN, CREATININE, CA)2020-01-25 00:52:00 Test Item Value Reference Range Interpretation Comments NA (test code = 138 mmol/L 135-145 6766378368) K (test code = 5.0 mmol/L 3.5-5 Slight hemoly sis 0536506467) CL (test code = 107 mmol/L 98-108 0314137716) CO2 TOTAL (test 24 mmol/L 23-31 code = 5902494207) AGAP (test code = 2-16 2689846852) BUN (test code = 8 mg/dL 7-23 Slight hemo lysis 5690886605) GLUCOSE (test code 107 mg/dL 70-110 = 6152623860) CREATININE (test 0.53 mg/dL 0.5-1.04 code = 7692012302) CALCIUM (test code 9.3 mg/dL 8.6-10.6 = 4496308475) eGFR Calculation mL/min/1.73m2 (Non-) (test code = 1179504927) eGFR Calculation mL/min/1.73m2 () (test code = 0500473291) SOL[employer]AD (test code = Association of SOLEDAD) [...] or urine or abnormalities in imaging tests). [facility]PROT[facility] / [id number] 00:41:00 Test Item Value Reference Range Interpretation Comments PROTIME PATIENT (test See_Comment [Auto mated message] code = 5964-2) The system In[employer] generated this result transmitted ref erence range: 10.1 - 1 2.6 Seconds. The re ference range was not u sed to interpret this result as normal/abnor mal. INR (test code = 6301-6) Nor mal INR <1.1; Warfarin Therap eutic range 2.0 to 3. 0 or 2.5 to 3.5, dep ending upon the indica tions. Lab Interpretation (test Normal code = 65049-8) [facility] Dallas[facility]2020-[facility] 00:41:00 Test Item Value Reference Range Interpretation Comments APTT Patient (test code See_Comment H [Au tomated message] = 3173-2) The system [employer] h generated this result transmitted ref erence range: 26 - 36 Seconds. The reference range was not used to int erpret this result as normal/abnormal . Lab Interpretation (test Abnormal code = 91121-7) [facility] DallasFIBRINOGEN2020-07-07 00:41:00 Test Item Value Reference Range Interpretation Comments Fibrinogen (test code = 7624924694) 488 mg/dL 167-453 H Lab Interpretation (test code = Abnormal 09063-1) [facility] DallasCB WITH [id number] 00:37:00 Test Item Value Reference Range Interpretation Comments WBC (test code = See_Comment [Automated 2790-2) message] The sy stem which generated this result transmitted reference range : 4.30 - 11.10 10*3/?L. The reference range was not used to interpret this result as normal/abnormal . RBC (test code = See_Comment [Automated 629-8) message] The sy stem which generated this [...] RDW-SD (test code = 41.0 fL 39-49.9 15789-2) RDW-CV (test code = 12.4 % 12-15.5 788-0) PLT (test code = See_Comment H [Automated 777-3) message] The sy stem which generated this result transmitted reference range : 166 - 358 10*3/ ?L. The reference r john was not used to interpret this result as normal/abnormal . MPV (test code = 8.6 fL 9.5-12.9 L 18341-9) NRBC/100 WBC (test See_Comment [Automat ed code = 0522589485) message] The system which generated this result transmitted reference range : 0.0 - 10.0 /100 WBCs. The refer ence range was not u sed to interpret th is result as normal/abnormal . NRBC x10^3 (test code <0.01 See_Comment [Auto mated = 2979194370) message] The s ystem which generated this result transmitted reference range : 10*3/?L. The reference range was not used to interpret this result as normal/abnormal . GRAN MAT (NEUT) % 44.8 % (test code = 770-8) IMM GRAN % (test code 0.20 % = 8394964220) LYMPH % (test code = 41.3 % 736-9) MONO % (test code = 8.3 % 5905-5) EOS % (test code = 4.8 % 713-8) BASO % (test code = 0.6 % 706-2) GRAN MAT x10^3(ANC) 2.91 10*3/uL 1.88-7.09 (test code = 1266067380) IMM GRAN x10^3 (test <0.03 0-0.06 code = 9015565585) LYMPH x10^3 (test code 2.68 10*3/uL 1.32-3.29 = 731-0) MONO x10^3 (test code 0.54 10*3/uL 0.33-0.92 = 742-7) EOS x10^3 (test code = 0.31 10*3/uL 0.03-0.39 711-2) BASO x10^3 (test code 0.04 10*3/uL 0.01-0.07 = 704-7) Lab Interpretation Abnormal (test code = 52641-9) [facility] DallasMR LUMBAR SPINE W WO [id number] 13:56:48 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 It is used under Emergency Use [...] indicated. Lab Interpretation Normal (test code = 31808-6) [facility] (NA, K, CL, CO2, GLUCOSE, BUN, CREATININE, CA)2020-01-23 23:29:00 Test Item Value Reference Range Interpretation Comments NA (test code = 138 mmol/L 135-145 2841393921) K (test code = 4.3 mmol/L 3.5-5 8458426158) CL (test code = 108 mmol/L 98-108 6241677023) CO2 TOTAL (test code = 23 mmol/L 23-31 1366631297) AGAP (test code = 2-16 5608086906) BUN (test code = 8 mg/dL 7-23 2939547788) GLUCOSE (test code = 83 mg/dL 70-110 2092062360) CREATININE (test code = 0.44 mg/dL 0.5-1.04 L 8988288659) CALCIUM (test code = 9.6 mg/dL 8.6-10.6 3483659853) eGFR Calculation mL/min/1.73m2 (Non-) (test code = 7268616883) eGFR Calculation mL/min/1.73m2 () (test code = 7386605722) SOLEDAD (test code = SOLEDAD) Association of [...] tests). Lab Interpretation Abnormal (test code = 95408-0) [facility] DallasURINALYSIS2020-07-05 23:25:00 Test Item Value Reference Range Interpretation Comments APPEARANCE (test code = Clear Clear 3946196817) COLOR (test code = Yellow Yellow 5347622072) PH (test code = 4.8-8.0 7427734671) SP GRAVITY (test code = 1.003-1.030 8753120395) GLU U QUAL (test code = Normal Normal 8222087465) BLOOD (test code = 1+ Negative A 8570096144) KETONES (test code = Negative Negative 4359406206) PROTEIN (test code = Negative Negative 2887-8) UROBILIN (test code = Normal Normal 5095778534) BILIRUBIN (test code = Negative Negative 2681181386) NITRITE (test code = Negative Negative 4298871877) LEUK IRAJ (test code = Negative Negative 8945942533) RBC/HPF (test code = See_Comment [Autom ated message] 1291133811) The system [employer] generated this result transmitted ref erence range: 0 - 3 HP F. The reference range was not used to int erpret this result as normal/abnormal . WBC/HPF (test code = See_Comment [Autom ated message] 9811424265) The system [employer] generated this result transmitted ref erence range: 0 - 5 HP F. The reference range was not used to int erpret this result as normal/abnormal . BACTERIA (test code = Negative Negative 7496465288) SQ EPITH (test code = See_Comment [Auto mated message] 5828887266) The system [employer] generated this result transmitted ref erence range: <=2 HPF. The reference range was not used to int erpret this result as normal/abnormal . Lab Interpretation (test Abnormal code = 42203-7) [facility] DallasXR Abdomen KUB 1 [id number] 18:15:18 Patient: KEKE HAYNES Date/Time03/15/2019 18:02 CDTReason for ExamAbdominal distentionReportXR ABDOMEN KUB 1 VIEWDIAGNOSIS: Right lower quadrant pain and distention for 3 daysNo bowel obstruction is seen. Vascular calcifications of the abdomen and pelvis. Surgical clips are noted from a cholecystectomy. Thoracolumbar dextroscoliosis and spondylosis are seen.IMPRESSION: No acute radiographic abnormality in the abdomen. Final Dictated by: MD Corrie, Rocky ArredondoatedDT/TM: 03/15/2019 6:14 pmSigned by: MD Denton Michael JackSigned (Electronic Signature): 03/15/2019 6:15 pmUrinalysis [id number] 16:19:42 Test Item Value Reference Range Interpretation Comments UA WBC (test code = UA WBC) 0-5 /HPF 0-5 UA RBC (test code = UA RBC) 0-4 /HPF 0-4 UA Bacteria (test code = UA Negative /HPF Negative Bacteria) UA Squam Epithelial (test code 21-73 /LPF 0-20 A = UA Squam Epithelial) Urinalysis with Culture, if [id number] 16:19:42 Test Item Value Reference Range Interpretation [...] = UA Micro Ind?) rule GL_SET_UA_MICRO _IND [id number] 16:13:11 Test Item Value Reference Range Interpretation Comments Amylase Level (test code = 53 IntlUnit/L 25-115 Amylase Level) Comprehensive Metabolic [id number] 16:13:11 Test Item Value Reference Range Interpretation [...] = AST) 20 IntlUnit/L 15-37 Comprehensive Metabolic [id number] 16:13:11 Test Item Value Reference Range Interpretation [...] >60 mL/min/1.73 m2 N AA) Comprehensive Metabolic [id number] 16:13:11 Test Item Value Reference Range Interpretation [...] >60 mL/min/1.73 m2 N eGFR Non-AA) Automated Hnzlpeigtaep4710-19-56 16:12:15 Test Item Value Reference Range Interpretation Comments Neutro Auto (test code = Neutro Auto) 55.4 % N Lymph Auto (test code = Lymph Auto) 36.3 % N Saline Auto (test code = Saline Auto) 5.5 % N Eos, Auto (test code = Eos, Auto) 1.9 % N Basophil Auto (test code = Basophil 0.9 % N Auto) Neutro Absolute (test code = Neutro 4.9 x10 2.7-7.3 Absolute) Lymph Absolute (test code = Lymph 3.2 x10 0.8-3.5 Absolute) Saline Absolute (test code = Saline 0.5 x10 0.3-0.9 Absolute) Eos Absolute (test code = Eos 0.2 x10 0.0-0.3 Absolute) Baso Absolute (test code = Baso 0.1 x10 0.0-0.1 Absolute) Complete Blood Count with Myfmafyrmgnk0031-45-72 16:12:14 Test Item Value Reference Range Interpretation [...] by = Slide Review) GL_SET_SLIDE _REVIEW_A UTO Comprehensive Metabolic [id number] 14:21:14 Test Item Value Reference Range Interpretation [...] = AST) 22 IntlUnit/L 15-37 Comprehensive Metabolic [id number] 14:21:14 Test Item Value Reference Range Interpretation [...] >60 mL/min/1.73 m2 N AA) Comprehensive Metabolic [id number] 14:21:14 Test Item Value Reference Range Interpretation [...] m2 N eGFR Non-AA) Pro B Natriuretic [id number] 14:05:15 Test Item Value Reference Range Interpretation Comments NT-proBNP (test code 6 pg/mL 0-125 < 300 p g/ml - heart = NT-proBNP) failure unlikel yAge less than 50 years, > 450 pg/ml - heart failure lilkelyAge 50 - 75 years, > 900 pg/ml - heart failure likelyAge greater than 75 years, > 1800 pg/ml - he art failure likely Complete Blood Count with [id number] 13:59:12 Test Item Value Reference Range Interpretation [...] = Slide Review) GL_SET_SLIDE _REVIEW_A UTO Automated Aitrflauuvak7976-23-81 13:59:12 Test Item Value Reference Range Interpretation Comments Neutro Auto (test code = Neutro Auto) 68.5 % N Lymph Auto (test code = Lymph Auto) 24.5 % N Saline Auto (test code = Saline Auto) 5.6 % N Eos, Auto (test code = Eos, Auto) 1.0 % N Basophil Auto (test code = Basophil 0.4 % N Auto) Neutro Absolute (test code = Neutro 8.2 x10 2.7-7.3 H Absolute) Lymph Absolute (test code = Lymph 2.9 x10 0.8-3.5 Absolute) Saline Absolute (test code = Saline 0.7 x10 0.3-0.9 Absolute) Eos Absolute (test code = Eos 0.1 x10 0.0-0.3 Absolute) Baso Absolute (test code = Baso 0.0 x10 0.0-0.1 Absolute) XR Chest 2 [id number] 13:41:47Patient: KEKE HAYNES Date/Time02/24/2019 13:18 CDTReason for [...] (Electronic Signature): 02/24/2019 1:41 pmXR Chest 2 [id number] 10:31:38Patient: KEKE HAYNES Date/Time10/06/2018 10:23 CDTReason for ExamCoughReportXRCHEST 2 VIEWSDIAGNOSIS: Cough and chest painThe heart, lungs and bony thorax are unremarkable and unc hanged since 09/22/2018. Hyperinflation suggesting early COPD.IMPRESSION: No active disease and no change since 12/07/2018. Final Dictated by: MD Denton Michael JackDictated DT/TM: 10/06/2018 10:30 amSigned by: MD Denton Michael JackSigned (Electronic Signature): 10/06/2018 10:31 amXR Chest 2 [id number] 14:38:49Patient: KEKE HAYNES Date/Time09/22/2018 14:05 CSTReason for ExamRespiratory distressReportCHEST 2 VIEWS:HISTORY: Respiratory distress, fever, shortness of breathCOMPARISON: 03/29/2018The cardiomediastinal silhouette shows no significant abnormality.No pleural fluid or pulmonary infiltrates are identified.The bony architecture appears intact, where adequately seen.IMPRESSION:No active cardiopulmonary process is identified. Final Dictated by: MD Roberto Carlos, Wei Boucherictated DT/TM: 09/22/2018 2:38 pmSigned by: MD Roberto Carlos, Wei Amandaigned (Electronic Signature): 09/22/2018 2:38 pmXR Ankle Complete 3+ Views Right 2018-09-05 07:53:52Patient: KEKE HAYNES Date/Time09/04/2018 22:40 CSTReason for ExamInjuryReportEXAMINATION: Right ankle 3 viewsTECHNIQUE: AP, lateral, and oblique views of the right ankle were perfo rmed.COMPARISON: NoneINDICATION: Fall with posttraumatic right ankle painFINDINGS:No acute fracture-dislocation. No osseous erosions or periosteal reaction. Joint spaces are are relatively well-maintained. No radiopaque foreign bodies. Soft tissues are grossly unremarkable.IMPRESSION:No acute osseous a bnormalities of the right ankle. Final Dictated by: [...] DT/TM: 09/05/2018 7:52 amSigned by: MD Arroyo SamerSigned (Electronic Signature): 09/05/2018 7:53 amCT Abdomen and [...] was administered, as ordered.Small 4 mm nodule notedin the right lower lobe. Suggest 6-8 month follow-up CT scan. Small bullous changes are noted in theleft base. Stable density in the left base [...] are seen in the retroperitoneum or the pel vis. There are a few diverticula involving the left colon without signs of diverticulitis.IMPRESSION:4 mm right lower lobe nodule. Small additional area of focal scarring left lung base with a few small bulla present. Recommend follow- up CT chest 6-8 months.Status post cholecystectomy with no intrahepatic duct dilatation.Nonobstructive bowel pattern with a few noncomplicated left colonic diverticula. Final Dictated by: MD Leary Craig ADictated DT/TM: 07/09/2018 2:02 pmSigned by: MD Leary Craig ASigned (Electronic Signature): 07/09/2018 2:15 [id number] 18:24:00 Test Item Value Reference Range Interpretation [...] BACTERIA (test code = NEGATIVE NONE BACTERIA) [id number] 18:16:00 Test Item Value Reference Range Interpretation [...] glucose = GLUCOSE) normal <100 MG/ DL- [employer] recommendation* * CALCIUM (test [...] GFR) mL/min/1.73m2 mL/min/1.73m2 is considered norm al. [id number] 18:16:00 Test Item Value Reference Range Interpretation Comments LIPASE (test code = LIPA) 95 U/L 23-300 [id number] 18:07:00 Test Item Value Reference Range Interpretation [...] 3.5 K/UL 1.2-7.2 = NEUT) OCCULT BLOOD, [id number] 06:35:00 Test Item Value Reference Range Interpretation Comments OCCULT BLOOD FECES (test code = NEGATIVE NEGATIVE OCCBLFEC) LOT# CRD (test code = LOT# CRD) 70600 EXP CRD (test code = EXP CRD) 10-20 LOT# DVL (test code = LOT# DVL) 74444 EXP DVL (test code = EXP DVL) 7-21 INT QC (test code = INT QC) PASSED [id number] 00:14:00 Test Item Value Reference Range Interpretation [...] glucose = GLUCOSE) normal <100 MG/ DL- [employer] recommendation* * CALCIUM (test [...] GFR) mL/min/1.73m2 mL/min/1.73m2 is considered norm al. [id number] 00:14:00 Test Item Value Reference Range Interpretation Comments LIPASE (test code = LIPA) 134 U/L 23-300 ABDOMEN 2 [id number] 21:18:[address] [id number] IMAGING REPORTPatient Name: Amaris HAYNES of Service: 30-01-8143Drr: 52 Sex: F Order #: [id number] [facility] 1965 [facility] Number: [id number] Record Number: [id number] Hospital Number: [id number] Physician: YANNA HAROOrdering Physician: Mallika MAY.History: Abdomen pain.Technique: 3 supine and upright abdominal projections were obtained andreviewed.Findings:There is no specific acute appe aring abdominal abnormality.There is no evidence to suggest obstruction or free air.The osseous structures appear intact. There is rotatory dextroscoliosis ofthe lumbar spine.Impression:No specific acute appearing abdominal abnormalities.Electronically Signed By: Hao Cole M.D., 04/04/2018 9:16 PMLegally authenticated by CLARA Talley 2018-04-04 21:16:[id number] 17:07:00 Test Item Value Reference Range Interpretation [...] (test code 5.6 K/UL 1.2-7.2 = NEUT) [id number] 17:06:00 Test Item Value Reference Range Interpretation [...] (test code = UAMICRO) NO CT ABDOMEN/PELVIS [id number] 16:28:[address] [id number] IMAGING REPORTPatient Name: Amaris HAYNES of Service: 14-05-9241Drv: 52 Sex: F Order #: [id number] Room: [facility]: 1965 X-Ray Number: [id number] Record Number: [id number] Hospital Number: [id number] Physician: YANNA HAROOrdering Physician: DANETTE CLARK ABDOMEN/PELVIS WITH 04/01/2018 3:52 PMHistory: Abd pain without fever, nausea, vomiting, Crohn's diseaseComparisons: 01/26/2016This CT exam was performed using one or more of the following dosereduction techniques: Automated exposure control, adjustment of the MAand/or KV according to patient size or use of iterative reconstructiontechnique.IV andoral contrast was administered for the procedure.FINDINGS:There is diffuse mucosal thickening of thedistal descending colon andsigmoid colon, likely representing Crohn's [...] 4:25 PMLegally authenticated by GEORGIA WISEMAN 2018-04-01 16:25:[id number] 14:29:00 Test Item Value Reference Range Interpretation Comments BLOOD TYPE (test code = TYPE) O Rh Positive ANTIBODY SCREEN (test code = NEGATIVE NEGATIVE SCREEN) PROTHROMBIN TIME WITH [id number] 14:13:00 Test Item Value Reference Range Interpretation Comments PROTHROMBIN TIME 12.5 SECONDS 12.0-14.6 INR Usual R john = 2 (test code = PT) to 3 for pr evention of deep vein thrombosis (DVT ) INR (test code = INR) 0.9 [id number] 14:13:00 Test Item Value Reference Range Interpretation Comments PTT (test code = 37.8 SECONDS 24.4-36.3 H HEPARIN THE RAPEUTIC PTT) RANGE 57-92 SEC ONDS [id number] 14:00:00 Test Item Value Reference Range Interpretation [...] glucose = GLUCOSE) normal <100 MG/ DL- [employer] recommendation* * CALCIUM (test [...] GFR) mL/min/1.73m2 mL/min/1.73m2 is considered norm al. [id number] 14:00:00 Test Item Value Reference Range Interpretation Comments LIPASE (test code = LIPA) 40 U/L 23-300 [id number] 13:51:00 Test Item Value Reference Range Interpretation [...] code 8.8 K/UL 1.2-7.2 H = NEUT) [id number] 13:22:00 Test Item Value Reference Range Interpretation [...] (test code = UAMICRO) NO SPINE LUMBAR [id number] 13:32:[address] [id number] IMAGING REPORTPatient Name: Amaris HAYNES of Service: 29-16-2148Wwb: 51 Sex: F Order #: [id number] [facility] 1965 [facility] Number: [id number] Record Number: [id number] Hospital Number: [id number] Physician: MICHELLE YEOrdering Physician: LAURENCE HONG SPINE [...] 1:29 PMLegally authenticated by JENNIFER Daniels 2017-10-16 13:29:[id number] 12:33:00 Test Item Value Reference Range Interpretation [...] BACTERIA (test code = NEGATIVE NONE BACTERIA) 08977& [id number] 06:46:50CHEST 2 VIEWREASON FOR STUDY: [id number]-SIYEMSNZIBD:The heart and mediastinum are within normal limits. Minor linearscarring or atelectasis is noted involving the right infrahilar region.Lungs appear slightly hyperinflated. Bony structures appear intact. . No other significant findings. IMPRESSION: Minor linear scarring or atelectasis involving the right infrahilarregion. Chest is otherwise clear.
[2022-08-21] MEDS ORDERED: IBUPROFEN 400 MG TAB ONE (05:35)
[2022-08-21] MEDS ORDERED: IBUPROFEN 200 MG TAB PO ONE (05:35)
--- NOTE | 2022-08-21 05:36 | ER ---
Nurse's Notes [facility] [place] Name: Bárbara Beebe Age: 56 yrs Sex: Female : 1965 Arrival Date: 08/21/2022 Time: 05:08 Bed 7 Private MD: Diagnosis: Zoster without complications;Cellulitis of face Presentation: 08/21 05:15 Chief complaint: Patient states: Yesterday i had a burning behind my right ear and i kd3 ignored it and went to bed. This morning i woke up with real explosive diarrhea. When i got up i looked behind my ear and a blister rash had appeared overnight. I am not sure if the two are related. I do have Crohns and i have not been in contact with anything that might have caused the rash. Coronavirus screen: Vaccine status: Patient reports being unvaccinated. Ebola Screen: No symptoms or risks identified at this time. Initial Sepsis Screen: Does the patient meet any 2 criteria? No. Patient's initial sepsis screen is negative. Does the patient have a suspected source of infection? No. Patient's initial sepsis screen is negative. Risk Assessment: Do you want to hurt yourself or someone else? Patient reports no desire to harm self or others. Onset of symptoms was August 21, 2022. 05:15 Method Of Arrival: Ambulatory kd3 05:15 Acuity: ANGELA 3 kd3 Triage Assessment: 05:18 General: Appears uncomfortable, Behavior is calm, cooperative. Pain: Complains of pain kd3 in right mastoid area. Historical: - Allergies: 05:18 Codeine; kd3 - Home Meds: 05:18 propranolol 10 mg Oral tab [Active]; kd3 - PMHx: 05:18 bleeding ulcers; COPD; Hypertension; Crohn's; psoriasis; kd3 - PSHx: 05:18 Appendectomy; back sx; Cholecystectomy; hysterectomy; kd3 - Immunization history:: Adult Immunizations up to date. - Social history:: Smoking status: unknown. - Family history:: not pertinent. Screenin:24 [facility] ED Fall Risk Assessment (Adult) Score/Fall Risk Level 0 - 2 = Low Risk. Abuse as6 screen: Denies threats or abuse. Denies injuries from another. Nutritional screening: No deficits noted. Tuberculosis screening: No symptoms or risk factors identified. Assessment: 05:22 General: Appears in no apparent distress. Behavior is calm, cooperative. Neuro: Level as6 of Consciousness is awake, alert, obeys commands, Oriented to person, place, time, situation. Cardiovascular: Capillary refill < 3 seconds Patient's skin is warm and dry. Respiratory: Reports cough that is Respiratory effort is even, unlabored, Respiratory pattern is regular, symmetrical. Derm: Rash noted that is papular, red, raised, on right mastoid area. 05:25 GI: Reports diarrhea. as6 Vital Signs: 05:15 Weight 74.84 kg; Height 5 ft. 2 in. (157.48 cm); kd3 05:24 BP 187 / 99; Pulse 95; Resp 16; Pulse Ox 98% on R/A; kd3 05:27 Temp 98.6(O); kd3 05:37 BP 128 / 93; Pulse 83; Resp 18 S; Pulse Ox 98% on R/A; as6 05:15 Body Mass Index 30.18 (74.84 kg, 157.48 cm) kd3 ED Course: 05:08 Patient arrived in ED. ag3 05:09 Kamari Salvador MD is Attending Physician. vanna 05:18 Triage completed. kd3 05:18 Arm band placed on. kd3 05:22 Jason Welch, FRANKI is Primary Nurse. as6 05:24 Placed in gown. Bed in low position. Call light in reach. Side rails up X 1. as6 05:35 Ildefonso Hester MD is Referral Physician. vanna 05:37 No provider procedures requiring assistance completed. Patient did not have IV access as6 during this emergency room visit. Administered Medications: 05:36 Drug: Motrin (ibuprofen) 600 mg Route: PO; as6 05:36 Follow up: Response: No adverse reaction as6 05:36 Drug: Valtrex (valACYclovir) 1000 mg Route: PO; as6 05:36 Follow up: Response: No adverse reaction as6 Medication: 05:24 VIS not applicable for this client. as6 Outcome: 05:36 Discharge ordered by . vanna 05:37 Discharged to home ambulatory. as6 05:37 Condition: stable 05:37 Discharge instructions given to patient, Instructed on discharge instructions, follow as6 up and referral plans. medication usage, Demonstrated understanding of instructions, follow-up care, medications, Prescriptions given X 4. 05:44 Patient left the ED. as6 Signatures: Kamari Salvador MD MD cha Gomez, Alice ag3 Jason Welch RN RN as6 Marita Arevalo RN RN kd3
--- NOTE | 2022-08-21 05:36 | EDPHYS ---
Physician Documentation [facility] Name: Bárbara Beebe Age: 56 yrs Sex: Female : 1965 Arrival Date: 08/21/2022 Time: 05:08 Bed 7 Private MD: SILVA Physician Kamari Salvador HPI: 08/21 05:29 This 56 yrs old Female presents to ER via Ambulatory with complaints of Rash. [facility] 05:29 The patient's rash thought to be caused by Dermatitis. The rash is located on the right vanna ear and right mastoid area. The rash can be described as erythematous, vesicular. Onset: The symptoms/episode began/occurred 3 day(s) ago. Associated signs and symptoms: Pertinent positives: itching, Pain. Severity of symptoms: At their worst the symptoms were moderate in the emergency department the symptoms are unchanged. Treatment given at home: none. The patient has not experienced similar symptoms in the past. Historical: - Allergies: 05:18 Codeine; kd3 - Home Meds: 05:18 propranolol 10 mg Oral tab [Active]; kd3 - PMHx: 05:18 bleeding ulcers; COPD; Hypertension; Crohn's; psoriasis; kd3 - PSHx: 05:18 Appendectomy; back sx; Cholecystectomy; hysterectomy; kd3 - Immunization history:: Adult Immunizations up to date. - Social history:: Smoking status: unknown. - Family history:: not pertinent. ROS: 05:29 Constitutional: Negative for fever, chills, and weight loss, Eyes: Negative for injury, vanna pain, redness, and discharge, ENT: Negative for injury, pain, and discharge, Neck: Negative for injury, pain, and swelling, Cardiovascular: Negative for chest pain, palpitations, and edema, Respiratory: Negative for shortness of breath, cough, wheezing, and pleuritic chest pain, Abdomen/GI: Negative for abdominal pain, nausea, vomiting, diarrhea, and constipation, Back: Negative for injury and pain, : Negative for injury, bleeding, discharge, and swelling, MS/Extremity: Negative for injury and deformity, Neuro: Negative for headache, weakness, numbness, tingling, and seizure, Psych: Negative for depression, anxiety, suicide ideation, homicidal ideation, and hallucinations, Allergy/Immunology: Negative for hives, rash, and allergies, Endocrine: Negative for neck swelling, polydipsia, polyuria, polyphagia, and marked weight changes, Hematologic/Lymphatic: Negative for swollen nodes, abnormal bleeding, and unusual bruising. 05:29 Skin: Positive for erythema, pustules, swelling. Exam: 05:29 Constitutional: This is a well developed, well nourished patient who is awake, alert, vanna and in no acute distress. Eyes: Pupils equal round and reactive to light, extra-ocular motions intact. Lids and lashes normal. Conjunctiva and sclera are non-icteric and not injected. Cornea within normal limits. Periorbital areas with no swelling, redness, or edema. ENT: Nares patent. No nasal discharge, no septal abnormalities noted. Tympanic membranes are normal and external auditory canals are clear. Oropharynx with no redness, swelling, or masses, exudates, or evidence of obstruction, uvula midline. Mucous membranes moist. Neck: Trachea midline, no thyromegaly or masses palpated, and no cervical lymphadenopathy. Supple, full range of motion without nuchal rigidity, or vertebral point tenderness. No Meningismus. Chest/axilla: Normal chest wall appearance and motion. Nontender with no deformity. No lesions are appreciated. Cardiovascular: Regular rate and rhythm with a normal S1 and S2. No gallops, murmurs, or rubs. Normal PMI, no JVD. No pulse deficits. Respiratory: Lungs have equal breath sounds bilaterally, clear to auscultation and percussion. No rales, rhonchi or wheezes noted. No increased work of breathing, no retractions or nasal flaring. Abdomen/GI: Soft, non-tender, with normal bowel sounds. No distension or tympany. No guarding or rebound. No evidence of tenderness throughout. Back: No spinal tenderness. No costovertebral tenderness. Full range of motion. Skin: Warm, dry with normal turgor. Normal color with no rashes, no lesions, and no evidence of cellulitis. MS/ Extremity: Pulses equal, no cyanosis. Neurovascular intact. Full, normal range of motion. Neuro: Awake and alert, GCS 15, oriented to person, place, time, and situation. Cranial nerves II-XII grossly intact. Motor strength 5/5 in all extremities. Sensory grossly intact. Cerebellar exam normal. Normal gait. Psych: Awake, alert, with orientation to person, place and time. Behavior, mood, and affect are within normal limits. 05:29 Skin: induration, that is mild is noted, zoster. Vital Signs: 05:15 Weight 74.84 kg; Height 5 ft. 2 in. (157.48 cm); kd3 05:24 BP 187 / 99; Pulse 95; Resp 16; Pulse Ox 98% on R/A; kd3 05:27 Temp 98.6(O); kd3 05:37 BP 128 / 93; Pulse 83; Resp 18 S; Pulse Ox 98% on R/A; as6 05:15 Body Mass Index 30.18 (74.84 kg, 157.48 cm) kd3 MDM: 05:09 Patient medically screened. [facility] 05:32 Differential diagnosis: impetigo, allergic reaction. Data reviewed: vital signs, nurses vanna notes. Consideration of Admission/Observation Escalation of care including admission/observation considered. I considered the following discharge prescriptions or medication management in the emergency department Medications were administered in the Emergency Department. See MAR. Test considered but Not performed: Labs: no labs. Care significantly affected by the following chronic conditions: Chronic Obstructive Pulmonary Disease, crohns, psoriasis. Administered Medications: 05:36 Drug: Motrin (ibuprofen) 600 mg Route: PO; as6 05:36 Follow up: Response: No adverse reaction as6 05:36 Drug: Valtrex (valACYclovir) 1000 mg Route: PO; as6 05:36 Follow up: Response: No adverse reaction as6 Disposition Summary: 08/21/22 05:36 Discharge Ordered Location: Home vanna Problem: new vanna Symptoms: have improved vanna Condition: Stable vanna Diagnosis - Zoster without complications vanna - Cellulitis of face vanna Followup: vanna - With: Private Physician - When: 2 - 3 days - Reason: Recheck today's complaints, Continuance of care, Re-evaluation by your physician Followup: vanna - With: Ildefonso Hester MD - When: 2 - 3 days - Reason: Recheck today's complaints, Continuance of care, Re-evaluation by your physician Discharge Instructions: - Discharge Summary Sheet vanna - Cellulitis, Adult vanna - Shingles vanna - Shingles, [id number] vanna - Cellulitis, Adult, [id number] vanna Forms: - Medication Reconciliation Form vanna - Thank You Letter vanna - Antibiotic Education vanna - Prescription Opioid Use vanna Prescriptions: - Valtrex 1 gram Oral tablet - take 1 tablet by ORAL route 3 times per day; 21 tablet; Refills: 0, Product [facility] Selection Permitted - acyclovir 5 % Topical ointment - apply 1 application by TOPICAL route every 3 hours for 7 days; 15 gram; [facility] Refills: 0, Product Selection Permitted - Tramadol 50 mg Oral Tablet - take 2 tablet by ORAL route every 8 hours as needed; 24 tablet; Refills: 0, [facility] Product Selection Permitted - Bactrim DS 800-160 mg Oral Tablet - take 1 tablet by ORAL route every 12 hours for 7 days; 14 tablet; Refills: 0, [facility] Product Selection Permitted Signatures: Kamari Salvador MD MD cha Slawson, Ashby RN RN as6 Marita Arevalo RN RN kd3
[2022-08-21] MEDS ORDERED: VALACYCLOVIR 500 MG TAB ONE (05:37)
[2022-08-21 05:49] VITALS: O2SAT 98
[2022-08-21 05:50] VITALS: TEMP 98.6
[2022-08-21 05:51] VITALS: BP 128/93
== END 2022-08-21 05:44 | disposition home or self-care (01) ==
LOC: ER 05:02
DX: B02.9 Zoster without complications (principal); L03.211 Cellulitis of face; I10 Essential (primary) hypertension; Z88.5 Allergy status to narcotic agent

== ENCOUNTER → 2023-08-09 | Emergency (ER) | payer OTHER ==
[~2023-08-09] MED LIST: CYCLOBENZAPRINE 10 MG TAB ONE; KETOROLAC 30 MG/ML INJ ONE; TRAMADOL HCL 50 MG TAB ONE; dexAMETHasone 10 MG/ML VIAL ONE
--- OUTSIDE RECORDS SUMMARY | 2023-08-09 11:48 | XMS REPORT | Continuity of Care Document ---
Author Name Unknown Address [address] [facility] [address] [place] [address] [facility] [address] [facility] 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 Name Role Phone Monica Heron Betancourt Primary Care Physician + Israel Wheatley Attending Clinician Unavailabl e [email or web address]_S Attending Clinician UnavailJulia Moncada MD Attending Clinician [phone] Francisco Sharma DO Attending Clinician [phone] Federico Qureshi Attending Clinician Unavailable Mohit Gaston DO Attending Clinician [phone] QIAN ANDRADE Attending Clinician Unavail Qian See MD Attending Clinician [phone] BAHMAN DOWNEY Attending Clinician UnavailBahman Boudreaux MD Attending Clinician [phone] Doctor Unassigned, [place] Attending Clinician U [facility], Neurosurgery Resident Attending Clinicia n Unavailable Michaela Marie Attending Clinician [phone] Jenelle Guardado DO Attending Clinician [phone] Nimisha WEBB, Eduin Hart Attending Clinician [phone] Ilsa Johnson MD Attending Clinician [phone] Shin Albarran MD Attending Clinician [phone] Yadi Hart Attending Clinician [phone] YADI GUTIERREZ Attending Clinician Unavailab le [email or web address]_Kadiyala_S Admitting Clinician Unavaila Heron P[place] Admitting Clinician Unavailable Ilsa Johnson MD Admitting Clinician [phone] Payers Payer Name Policy Type Policy Number Effective Date Expirati on Date Source [facility] [id number] 2021 00:00:00 Problems Condition Name Condition Details Condition Category Status Onset Date Resolution Date Last Treatment Date Treating Clinician Comments Source Numbness of right hand Numbness of right hand Disease Active 09-10 00:00: 00 [facility] 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 Disease Active 09-10 00:00: 00 [facility] 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 Disease Active 09-10 00:00: 00 [facility] Lumbar stenosis with neurogenic claudicati on Lumbar stenosis with neurogenic claudicati on Disease Active 01-23 00:00: 00 [facility] Perforated ulcer Perforated ulcer Disease Active 03-29 00:00: 00 [facility] Melena Melena Disease Active 03-29 00:00: 00 Overview: Added automatic ally from request for surgery [id number] [facility] Allergies, Adverse Reactions, Alerts Allergy Name Allergy Type Status Severity Reaction(s) Onset Date Inactive Date Treating Clinician Comments Source No Known Allergie s DA Active U 2020-07 00:00: 00 [facility] sucralfa te FA Active U Rash 2020-07 0 00:00: 00 [facility] No Known Allergie s DA Active U 2020-07 0 00:00: 00 [facility] sucralfa te FA Active U 2020-07 00:00: 00 [facility] NO KNOWN ALLERGIE S Drug Class Active [facility] Social History Social Habit Start Date Stop Date Quantity Comments Source History of tobacco use Cigarette Smoker [facility] Exposure to SARS-CoV-2 (event) 2022-08-31 00:00:00 2022-09-10 10:16:00 Not sure [facility] Tobacco use and exposure 2020-03-02 00:00:00 2020-03-02 00:00:00 Never used [facility] Alcohol intake 2020-03-02 00:00:00 2020-03-02 00:00:00 Current non-drinker of alcohol (finding) [facility] Tobacco Comment 2020-01-21 00:00:00 2020-01-21 00:00:00 1/2 pack a day [facility] Sex Ass[birth year] At 1965 00:00:00 1965 00:00:00 F [facility] Smoking Status Start Date Stop Date Source Tobacco smoking consumption unknown [facility] Current every day smoker 2020-03-02 00:00:00 [facility] Medications Ordered Medication Name Filled Medication Name Start Date Stop Date Current Medication? Ordering Clinician Indication Dosage Frequency Signature (SIG) Comments Components Source gabapentin 600 mg tablet 02-21 00:00: 00 05-23 05:59 :00 No [id number] 600mg Take 1 tablet by mouth 3 (three) times daily for 90 days. [facility] cyclobenzap rine 10 mg tablet 8-04 00:00: 05-23 05:59 :00 No [id number] 10mg Take 1 tablet by mouth 3 (three) times daily for 90 days. [facility] gabapentin 600 mg tablet 8-04 00:00: 00 05-23 05:59 :00 No [id number] 600mg Take 1 tablet by mouth 3 (three) times daily for 90 days. [facility] cyclobenzap rine 10 mg tablet 8-04 00:00: 00 05-23 05:59 :00 No [id number] 10mg Take 1 tablet by mouth 3 (three) times daily for 90 days. [facility] gabapentin 600 mg tablet 2020-0 8-04 00:00: 00 05-23 05:59 :00 No [id number] 600mg Take 1 tablet by mouth 3 (three) times daily for 90 days. [facility] cyclobenzap rine 10 mg tablet 2019-0 8-04 00:00: 05-23 05:59 :00 No [id number] 10mg Take 1 tablet by mouth 3 (three) times daily for 90 days. [facility] gabapentin 600 mg tablet 2019-0 8-04 00:00: 00 05-23 05:59 :00 No [id number] 600mg Take 1 tablet by mouth 3 (three) times daily for 90 days. [facility] cyclobenzap rine 10 mg tablet 2019-0 8-04 00:00: 00 05-23 05:59 :00 No [id number] 10mg Take 1 tablet by mouth 3 (three) times daily for 90 days. [facility] gabapentin 600 mg tablet 2019-0 8-04 00:00: 05-23 05:59 :00 No [id number] 600mg Take 1 tablet by mouth 3 (three) times daily for 90 days. [facility] cyclobenzap rine 10 mg tablet 2019-0 8-04 00:00: 05-23 05:59 :00 No [id number] 10mg Take 1 tablet by mouth 3 (three) times daily for 90 days. [facility] gabapentin 600 mg tablet 2019-0 8-04 00:00: 05-23 05:59 :00 No [id number] 600mg Take 1 tablet by mouth 3 (three) times daily for 90 days. [facility] cyclobenzap rine 10 mg tablet 2019-0 8-04 00:00: 00 05-23 05:59 :00 No [id number] 10mg Take 1 tablet by mouth 3 (three) times daily for 90 days. [facility] gabapentin 600 mg tablet 2019-0 8-04 00:00: 00 05-23 05:59 :00 No [id number] 600mg Take 1 tablet by mouth 3 (three) times daily for 90 days. [facility] cyclobenzap rine 10 mg tablet 2019-0 8-04 00:00: 05-23 05:59 :00 No [id number] 10mg Take 1 tablet by mouth 3 (three) times daily for 90 days. [facility] gabapentin 600 mg tablet 2020-0 8-04 00:00: 00 05-23 05:59 :00 No [id number] 600mg Take 1 tablet by mouth 3 (three) times daily for 90 days. [facility] cyclobenzap rine 10 mg tablet 2019-0 8-04 00:00: 05-23 05:59 :00 No [id number] 10mg Take 1 tablet by mouth 3 (three) times daily for 90 days. [facility] gabapentin 600 mg tablet 2019-0 8-04 00:00: 05-23 05:59 :00 No [id number] 600mg Take 1 tablet by mouth 3 (three) times daily for 90 days. [facility] cyclobenzap rine 10 mg tablet 2019-0 8-04 00:00: 05-23 05:59 :00 No [id number] 10mg Take 1 tablet by mouth 3 (three) times daily for 90 days. [facility] gabapentin 600 mg tablet 2019-0 8-04 00:00: 05-23 05:59 :00 No [id number] 600mg Take 1 tablet by mouth 3 (three) times daily for 90 days. [facility] cyclobenzap rine 10 mg tablet 2019-0 8-04 00:00: 05-23 05:59 :00 No [id number] 10mg Take 1 tablet by mouth 3 (three) times daily for 90 days. [facility] gabapentin 600 mg tablet 2019-0 8-04 00:00: 05-23 05:59 :00 No [id number] 600mg Take 1 tablet by mouth 3 (three) times daily for 90 days. [facility] cyclobenzap rine 10 mg tablet 2019-0 8-04 00:00: 05-23 05:59 :00 No [id number] 10mg Take 1 tablet by mouth 3 (three) times daily for 90 days. [facility] methylPREDN ISolone (MEDROL, NGA,) 4 mg tablets 2020-0 7-30 00:00: 00 Yes [id number] Take by mouth SEE-INSTRU CTIONS. follow package directions [facility] methylPREDN ISolone (MEDROL, NGA,) 4 mg tablets 2019-0 7-30 00:00: 00 Yes [id number] Take by mouth SEE-INSTRU CTIONS. follow package directions [facility] methylPREDN ISolone (MEDROL, NGA,) 4 mg tablets 2019-0 7-30 00:00: 00 Yes [id number] Take by mouth SEE-INSTRU CTIONS. follow package directions [facility] methylPREDN ISolone (MEDROL, NGA,) 4 mg tablets 2019-0 7-30 00:00: 00 Yes [id number] Take by mouth SEE-INSTRU CTIONS. follow package directions [facility] methylPREDN ISolone (MEDROL, NGA,) 4 mg tablets 2019-0 7-30 00:00: 00 Yes [id number] Take by mouth SEE-INSTRU CTIONS. follow package directions [facility] methylPREDN ISolone (MEDROL, NGA,) 4 mg tablets 2019-0 7-30 00:00: 00 Yes [id number] Take by mouth SEE-INSTRU CTIONS. follow package directions [facility] methylPREDN ISolone (MEDROL, NGA,) 4 mg tablets 2019-0 7-30 00:00: 00 Yes [id number] Take by mouth SEE-INSTRU CTIONS. follow package directions [facility] methylPREDN ISolone (MEDROL, NGA,) 4 mg tablets 0 7-30 00:00: 00 Yes [id number] Take by mouth SEE-INSTRU CTIONS. follow package directions [facility] methylPREDN ISolone (MEDROL, NGA,) 4 mg tablets 2019-0 7-30 00:00: 00 Yes [id number] Take by mouth SEE-INSTRU CTIONS. follow package directions [facility] methylPREDN ISolone (MEDROL, NGA,) 4 mg tablets 2019-0 7-30 00:00: 00 Yes [id number] Take by mouth SEE-INSTRU CTIONS. follow package directions [facility] methylPREDN ISolone (MEDROL, NGA,) 4 mg tablets 02-16 00:00: 00 Yes [id number] Take by mouth SEE-INSTRU CTIONS. follow package directions [facility] methylPREDN ISolone (MEDROL, NGA,) 4 mg tablets 02-16 00:00: 00 Yes [id number] Take by mouth SEE-INSTRU CTIONS. follow package directions [facility] methylPREDN ISolone (MEDROL, NGA,) 4 mg tablets 02-16 00:00: 00 Yes [id number] Take by mouth SEE-INSTRU CTIONS. follow package directions [facility] heparin (porcine) injection 5,000 Units 01-28 01:00: 00 Yes 5000U 5,000 Units, Subcutaneo us, BID, First dose on Fri01/28/20 at 2000, Until Discontinu ed, Routine [facility] traZODone 50 mg tablet 01-27 20:46: 54 Yes 50mg Take 50 mg by mouth as needed for Insomnia. [facility] traZODone 50 mg tablet 01-27 20:46: 54 Yes 50mg Take 50 mg by mouth as needed for Insomnia. [facility] traZODone 50 mg tablet 01-27 20:46: 54 Yes 50mg Take 50 mg by mouth as needed for Insomnia. [facility] traZODone 50 mg tablet 01-27 20:46: 54 Yes 50mg Take 50 mg by mouth as needed for Insomnia. [facility] traZODone 50 mg tablet 01-27 20:46: 54 Yes 50mg Take 50 mg by mouth as needed for Insomnia. [facility] traZODone 50 mg tablet 01-27 20:46: 54 Yes 50mg Take 50 mg by mouth as needed for Insomnia. [facility] traZODone 50 mg tablet 01-27 20:46: 54 Yes 50mg Take 50 mg by mouth as needed for Insomnia. [facility] traZODone 50 mg tablet 01-27 20:46: 54 Yes 50mg Take 50 mg by mouth as needed for Insomnia. [facility] traZODone 50 mg tablet 01-27 20:46: 54 Yes 50mg Take 50 mg by mouth as needed for Insomnia. [facility] 01-27 20:46: 54 Yes 50mg Take 50 mg by mouth as needed for Insomnia. [facility] traZODone 50 mg tablet 01-27 20:46: 54 Yes 50mg Take 50 mg by mouth as needed for Insomnia. [facility] traZODone 50 mg tablet 01-27 20:46: 54 Yes 50mg Take 50 mg by mouth as needed for Insomnia. [facility] traZODone 50 mg tablet 01-27 20:46: 54 Yes 50mg Take 50 mg by mouth as needed for Insomnia. [facility] traZODone 50 mg tablet 01-27 20:46: 54 Yes 50mg Take 50 mg by mouth as needed for Insomnia. [facility] traZODone 50 mg tablet 01-27 20:46: 54 Yes 50mg Take 50 mg by mouth as needed for Insomnia. [facility] traZODone 50 mg tablet 01-27 20:46: 54 Yes 50mg Take 50 mg by mouth as needed for Insomnia. [facility] traZODone 50 mg tablet 01-27 20:46: 54 Yes 50mg Take 50 mg by mouth as needed for Insomnia. [facility] traZODone 50 mg tablet 01-27 20:46: 54 Yes 50mg Take 50 mg by mouth as needed for Insomnia. [facility] traZODone 50 mg tablet 01-27 20:46: 54 Yes 50mg Take 50 mg by mouth as needed for Insomnia. [facility] traZODone 50 mg tablet 01-27 20:46: 54 Yes 50mg Take 50 mg by mouth as needed for Insomnia. [facility] pneumococca l vac polyvalent (PNEUMOVAX- 23) injection 0.5 mL 01-27 19:30: 00 01-27 20:00 :00 No .5mL 0.5 mL, Intramuscu lar, ONCE, 1 dose, Fri01/28/20 at 1430, Routine [facility] cyclobenzap rine 5 mg tablet 2020-0 7-10 00:00: 00 Yes [id number] 5mg Take 1 tablet by mouth 3 (three) times daily. [facility] cyclobenzap rine 5 mg tablet 2020-0 7-10 00:00: 00 Yes [id number] 5mg Take 1 tablet by mouth 3 (three) times daily. [facility] cyclobenzap rine 5 mg tablet 2020-0 7-10 00:00: 00 Yes [id number] 5mg Take 1 tablet by mouth 3 (three) times daily. [facility] cyclobenzap rine 5 mg tablet 2020-0 7-10 00:00: 00 Yes [id number] 5mg Take 1 tablet by mouth 3 (three) times daily. [facility] cyclobenzap rine 5 mg tablet 2020-0 7-10 00:00: 00 Yes [id number] 5mg Take 1 tablet by mouth 3 (three) times daily. [facility] cyclobenzap rine 5 mg tablet 2020-0 7-10 00:00: 00 Yes [id number] 5mg Take 1 tablet by mouth 3 (three) times daily. [facility] cyclobenzap rine 5 mg tablet 2020-0 7-10 00:00: 00 Yes [id number] 5mg Take 1 tablet by mouth 3 (three) times daily. [facility] cyclobenzap rine 5 mg tablet 2020-0 7-10 00:00: 00 Yes [id number] 5mg Take 1 tablet by mouth 3 (three) times daily. [facility] cyclobenzap rine 5 mg tablet 2020-0 7-10 00:00: 00 Yes [id number] 5mg Take 1 tablet by mouth 3 (three) times daily. [facility] cyclobenzap rine 5 mg tablet 2020-0 7-10 00:00: 00 Yes [id number] 5mg Take 1 tablet by mouth 3 (three) times daily. [facility] cyclobenzap rine 5 mg tablet 2020-0 7-10 00:00: 00 Yes [id number] 5mg Take 1 tablet by mouth 3 (three) times daily. [facility] cyclobenzap rine 5 mg tablet 2020-0 7-10 00:00: 00 Yes [id number] 5mg Take 1 tablet by mouth 3 (three) times daily. [facility] cyclobenzap rine 5 mg tablet 2020-0 7-10 00:00: 00 Yes [id number] 5mg Take 1 tablet by mouth 3 (three) times daily. [facility] cyclobenzap rine 5 mg tablet 2020-0 7-10 00:00: 00 Yes [id number] 5mg Take 1 tablet by mouth 3 (three) times daily. [facility] cyclobenzap rine 5 mg tablet 2020-0 7-10 00:00: 00 Yes [id number] 5mg Take 1 tablet by mouth 3 (three) times daily. [facility] cyclobenzap rine 5 mg tablet 2020-0 7-10 00:00: 00 Yes [id number] 5mg Take 1 tablet by mouth 3 (three) times daily. [facility] cyclobenzap rine 5 mg tablet 2020-0 7-10 00:00: 00 Yes [id number] 5mg Take 1 tablet by mouth 3 (three) times daily. [facility] cyclobenzap rine 5 mg tablet 2020-0 7-10 00:00: 00 Yes [id number] 5mg Take 1 tablet by mouth 3 (three) times daily. [facility] cyclobenzap rine 5 mg tablet 2020-0 7-10 00:00: 00 Yes [id number] 5mg Take 1 tablet by mouth 3 (three) times daily. [facility] cyclobenzap rine 5 mg tablet 2020-0 7-10 00:00: 00 Yes [id number] 5mg Take 1 tablet by mouth 3 (three) times daily. [facility] HYDROcodone -acetaminop hen 5-325 mg tablet 2020-0 7-10 00:00: 00 02-04 04:59 :00 No [id number] 1{tbl} Take 1 tablet by mouth every 6 (six) hours as needed for Pain (scale 4-6) or Pain (scale 7-10) for up to 7 days. Indication s: acute pain [facility] HYDROcodone -acetaminop hen 5-325 mg tablet 01-27 00:00: 00 02-04 04:59 :00 No [id number] 1{tbl} Take 1 tablet by mouth every 6 (six) hours as needed for Pain (scale 4-6) or Pain (scale 7-10) for up to 7 days. Indication s: acute pain [facility] HYDROcodone -acetaminop hen 5-325 mg tablet 01-27 00:00: 00 02-04 04:59 :00 No [id number] 1{tbl} Take 1 tablet by mouth every 6 (six) hours as needed for Pain (scale 4-6) or Pain (scale 7-10) for up to 7 days. Indication s: acute pain [facility] HYDROcodone -acetaminop hen 5-325 mg tablet 01-27 00:00: 00 02-04 04:59 :00 No [id number] 1{tbl} Take 1 tablet by mouth every 6 (six) hours as needed for Pain (scale 4-6) or Pain (scale 7-10) for up to 7 days. Indication s: acute pain [facility] HYDROcodone -acetaminop hen 5-325 mg tablet 01-27 00:00: 02-04 04:59 :00 No [id number] 1{tbl} Take 1 tablet by mouth every 6 (six) hours as needed for Pain (scale 4-6) or Pain (scale 7-10) for up to 7 days. Indication s: acute pain [facility] morpHINE injection 4 mg 01-26 23:20: 12 Yes 4mg 4 mg, Slow IV Push, Q3HPRN, Starting Sadaf 01/27/20 at 1820, Until Discontinu ed, Routine, severe pain not controlled by tylenol [facility] acetaminoph en (TYLENOL) tablet 650 mg 01-26 23:18: 26 Yes 650mg 650 mg, Oral, Q6HPRN, Starting Sadaf 01/27/20 at 1818, Until Discontinu ed, Routine, Pain (scale 1-3), Temp > 38.5 C [facility] ceFAZolin (ANCEF) 1,000 mg in NaCl 0.9% (NS) 50 mL MINI-BAG 01-26 23:15: 00 01-27 23:14 :00 No 1000mg 1,000 mg, IV Piggyback, Q8H ABX, 3 doses, First dose on Fri01/27/20 at 1815, Last dose on Fri01/28/20 at 1015, 50 mL
Reas on for Anti-Infec tive: Surgical Prophylaxi s
Surgi niranjan Prophylaxi s: Neurosurge ry
Dura tion of therapy: within 24 hours of surgery [facility] HYDROcodone -acetaminop hen (NORCO 5) 5-325 mg tablet 1 tablet 01-26 22:45: 00 01-26 22:50 :00 No 1{tbl} 1 tablet, Oral, ONCE, 1 dose, Fri01/27/20 at 1745, Routine, PACU [facility] HYDROmorpho ne (DILAUDID) injection 0.2 mg 01-26 22:32: 54 01-26 23:48 :12 No .2mg 0.2 mg, Slow IV Push, Q5MIN PRN, 10 doses, Starting Fri01/27/20 at 1732, Until Fri01/27/20 at 1848, Routine, Pain (scale 7-10), PACU
Us e approved by (Faculty): PACU USE -ANESTHESI A SERVICE-HY DROMORPHON E INJECTIONS [facility] nicotine (NICODERM) 14 mg/24 hr patch 1 Patch 01-25 22:15: 00 Yes 1{patch } 1 Patch, Topical, Administer over 24 Hours, Q24H, First dose on Fri01/26/20 at 1715, Until Discontinu ed, Routine [facility] diphenhydrA MINE (BENADRYL) tablet 25 mg 01-24 17:05: 56 Yes 25mg 25 mg, Oral, Q6HPRN, Starting Fri01/25/20 at 1205, Until Discontinu ed, Routine, Itching [facility] docusate (COLACE) capsule 100 mg 01-24 14:00: 00 Yes 100mg 100 mg, Oral, DAILY, First dose on Fri01/25/20 at 0900, Until Discontinu ed, Routine [facility] pantoprazol e (PROTONIX) EC tablet 40 mg 01-24 01:00: 00 Yes 40mg 40 mg, Oral, BID, First dose on Fri01/24/20 at 2000, Until Discontinu ed, Routine [facility] gabapentin (NEURONTIN) capsule 300 mg 01-24 01:00: 00 Yes 300mg 300 mg, Oral, TID, First dose on Fri01/24/20 at 2000, Until Discontinu ed, Routine [facility] NaCl 0.9% (NS) IV infusion 1,000 mL 01-23 22:45: 00 Yes 1000mL at 50 mL/hr, IV Infusion, CONTINUOUS , Starting Fri01/24/20 at 1745, Until Discontinu ed, Routine [facility] traZODone (DESYREL) tablet 50 mg 01-23 21:54: 43 Yes 50mg 50 mg, Oral, QHSPRN, Starting Fri01/24/20 at 1654, Until Discontinu ed, Routine, Insomnia [facility] ondansetron (ZOFRAN (PF)) injection 4 mg 01-23 21:38: 49 Yes 4mg 4 mg, Slow IV Push, Q6HPRN, Starting Fri01/24/20 at 1638, Until Discontinu ed, Routine, Nausea and Vomiting (N/V) [facility] HYDROcodone -acetaminop hen (NORCO 5) 5-325 mg tablet 1 tablet 01-23 21:38: 49 Yes 1{tbl} 1 tablet, Oral, Q4HPRN, Starting Fri01/24/20 at 1638, Until Discontinu ed, Routine, Pain (scale 7-10) [facility] traMADol (ULTRAM) tablet 50 mg 01-23 21:38: 49 Yes 50mg 50 mg, Oral, Q4HPRN, Starting Fri01/24/20 at 1638, Until Discontinu ed, Routine, Pain (scale 4-6) [facility] acetaminoph en (TYLENOL) tablet 650 mg 01-23 15:00: 00 01-23 14:45 :00 No 650mg 650 mg, Oral, ONCE, 1 dose, 01/24/20 at 1000, MC [facility] gadoteridol (PROHANCE-1 5 mL) injection 14.42 mL 01-23 02:30: 00 01-23 02:00 :00 No .2mL/kg 14.42 mL (0.2 mL/kg ?72.1 kg), Intravenou s, ONCE, 1 dose, 01/23/20 at 2130, Routine [facility] traZODone 50 mg tablet 01-20 18:45: 45 Yes 50mg Take 50 mg by mouth as needed for Insomnia. [facility] traZODone 50 mg tablet 01-20 18:45: 45 Yes 50mg Take 50 mg by mouth as needed for Insomnia. [facility] gabapentin 300 mg capsule 01-20 00:00: 00 Yes [id number] 300mg Take 1 capsule by mouth 3 (three) times daily. [facility] gabapentin 300 mg capsule 01-20 00:00: 00 Yes [id number] 300mg Take 1 capsule by mouth 3 (three) times daily. [facility] gabapentin 300 mg capsule 01-20 00:00: 00 Yes [id number] 300mg Take 1 capsule by mouth 3 (three) times daily. [facility] gabapentin 300 mg capsule 01-20 00:00: 00 Yes [id number] 300mg Take 1 capsule by mouth 3 (three) times daily. [facility] gabapentin 300 mg capsule 01-20 00:00: 00 Yes [id number] 300mg Take 1 capsule by mouth 3 (three) times daily. [facility] gabapentin 300 mg capsule 01-20 00:00: 00 Yes [id number] 300mg Take 1 capsule by mouth 3 (three) times daily. [facility] gabapentin 300 mg capsule 01-20 00:00: 00 Yes [id number] 300mg Take 1 capsule by mouth 3 (three) times daily. [facility] gabapentin 300 mg capsule 2019-0 - 00:00: 00 Yes [id number] 300mg Take 1 capsule by mouth 3 (three) times daily. [facility] gabapentin 300 mg capsule 2019-0 - 00:00: 00 Yes [id number] 300mg Take 1 capsule by mouth 3 (three) times daily. [facility] gabapentin 300 mg capsule 0 - 00:00: 00 Yes [id number] 300mg Take 1 capsule by mouth 3 (three) times daily. [facility] gabapentin 300 mg capsule 2019-0 - 00:00: 00 Yes [id number] 300mg Take 1 capsule by mouth 3 (three) times daily. [facility] gabapentin 300 mg capsule 0 - 00:00: 00 Yes [id number] 300mg Take 1 capsule by mouth 3 (three) times daily. [facility] gabapentin 300 mg capsule 0 - 00:00: 00 Yes [id number] 300mg Take 1 capsule by mouth 3 (three) times daily. [facility] gabapentin 300 mg capsule 0 - 00:00: 00 Yes [id number] 300mg Take 1 capsule by mouth 3 (three) times daily. [facility] gabapentin 300 mg capsule 0 - 00:00: 00 Yes [id number] 300mg Take 1 capsule by mouth 3 (three) times daily. [facility] gabapentin 300 mg capsule 0 - 00:00: 00 Yes [id number] 300mg Take 1 capsule by mouth 3 (three) times daily. [facility] gabapentin 300 mg capsule 2019-0 - 00:00: 00 Yes [id number] 300mg Take 1 capsule by mouth 3 (three) times daily. [facility] gabapentin 300 mg capsule 2019-0 7-03 00:00: 00 Yes [id number] 300mg Take 1 capsule by mouth 3 (three) times daily. [facility] gabapentin 300 mg capsule 2019-0 7-03 00:00: 00 Yes [id number] 300mg Take 1 capsule by mouth 3 (three) times daily. [facility] gabapentin 300 mg capsule 01-20 00:00: 00 Yes [id number] 300mg Take 1 capsule by mouth 3 (three) times daily. [facility] gabapentin 300 mg capsule 01-20 00:00: 00 Yes [id number] 300mg Take 1 capsule by mouth 3 (three) times daily. [facility] gabapentin 300 mg capsule 01-20 00:00: 00 Yes [id number] 300mg Take 1 capsule by mouth 3 (three) times daily. [facility] pantoprazol e 40 mg EC tablet 03-31 00:00: 00 Yes 40mg Take 1 tablet by mouth 2 (two) times daily. [facility] pantoprazol e 40 mg EC tablet 03-31 00:00: 00 Yes 40mg Take 1 tablet by mouth 2 (two) times daily. [facility] albuterol 90 mcg/actuati on inhaler 03-31 00:00: 00 Yes 2{puff} Inhale 2 Puffs every 6 (six) hours as needed for Wheezing or Shortness of Breath. [facility] albuterol 90 mcg/actuati on inhaler 03-31 00:00: 00 Yes 2{puff} Inhale 2 Puffs every 6 (six) hours as needed for Wheezing or Shortness of Breath. [facility] pantoprazol e 40 mg EC tablet 03-31 00:00: 00 Yes 40mg Take 1 tablet by mouth 2 (two) times daily. [facility] albuterol 90 mcg/actuati on inhaler 03-31 00:00: 00 Yes 2{puff} Inhale 2 Puffs every 6 (six) hours as needed for Wheezing or Shortness of Breath. [facility] pantoprazol e 40 mg EC tablet 03-31 00:00: 00 Yes 40mg Take 1 tablet by mouth 2 (two) times daily. [facility] albuterol 90 mcg/actuati on inhaler 03-31 00:00: 00 Yes 2{puff} Inhale 2 Puffs every 6 (six) hours as needed for Wheezing or Shortness of Breath. [facility] pantoprazol e 40 mg EC tablet 03-31 00:00: 00 Yes 40mg Take 1 tablet by mouth 2 (two) times daily. [facility]er 03-31 00:00: 00 Yes 2{puff} Inhale 2 Puffs every 6 (six) hours as needed for Wheezing or Shortness of Breath. [facility] pantoprazol e 40 mg EC tablet 03-31 00:00: 00 Yes 40mg Take 1 tablet by mouth 2 (two) times daily. [facility]erol 90 mcg/actuati on inhaler 03-31 00:00: 00 Yes 2{puff} Inhale 2 Puffs every 6 (six) hours as needed for Wheezing or Shortness of Breath. [facility] pantoprazol e 40 mg EC tablet 03-31 00:00: 00 Yes 40mg Take 1 tablet by mouth 2 (two) times daily. [facility] albuterol 90 mcg/actuati on inhaler 03-31 00:00: 00 Yes 2{puff} Inhale 2 Puffs every 6 (six) hours as needed for Wheezing or Shortness of Breath. [facility] pantoprazol e 40 mg EC tablet 03-31 00:00: 00 Yes 40mg Take 1 tablet by mouth 2 (two) times daily. [facility] albuterol 90 mcg/actuati on inhaler 03-31 00:00: 00 Yes 2{puff} Inhale 2 Puffs every 6 (six) hours as needed for Wheezing or Shortness of Breath. [facility] pantoprazol e 40 mg EC tablet 03-31 00:00: 00 Yes 40mg Take 1 tablet by mouth 2 (two) times daily. [facility] albuterol 90 mcg/actuati on inhaler 03-31 00:00: 00 Yes 2{puff} Inhale 2 Puffs every 6 (six) hours as needed for Wheezing or Shortness of Breath. [facility] pantoprazol e 40 mg EC tablet 03-31 00:00: 00 Yes 40mg Take 1 tablet by mouth 2 (two) times daily. [facility] albuterol 90 mcg/actuati on inhaler 03-31 00:00: 00 Yes 2{puff} Inhale 2 Puffs every 6 (six) hours as needed for Wheezing or Shortness of Breath. [facility] pantoprazol e 40 mg EC tablet 03-31 00:00: 00 Yes 40mg Take 1 tablet by mouth 2 (two) times daily. [facility] albuterol 90 mcg/actuati on inhaler 03-31 00:00: 00 Yes 2{puff} Inhale 2 Puffs every 6 (six) hours as needed for Wheezing or Shortness of Breath. [facility] pantoprazol e 40 mg EC tablet 03-31 00:00: 00 Yes 40mg Take 1 tablet by mouth 2 (two) times daily. [facility] albuterol 90 mcg/actuati on inhaler 03-31 00:00: 00 Yes 2{puff} Inhale 2 Puffs every 6 (six) hours as needed for Wheezing or Shortness of Breath. [facility] pantoprazol e 40 mg EC tablet 03-31 00:00: 00 Yes 40mg Take 1 tablet by mouth 2 (two) times daily. [facility] pantoprazol e 40 mg EC tablet 03-31 00:00: 00 Yes 40mg Take 1 tablet by mouth 2 (two) times daily. [facility] albuterol 90 mcg/actuati on inhaler 03-31 00:00: 00 Yes 2{puff} Inhale 2 Puffs every 6 (six) hours as needed for Wheezing or Shortness of Breath. [facility] albuterol 90 mcg/actuati on inhaler 03-31 00:00: 00 Yes 2{puff} Inhale 2 Puffs every 6 (six) hours as needed for Wheezing or Shortness of Breath. [facility] pantoprazol e 40 mg EC tablet 03-31 00:00: 00 Yes 40mg Take 1 tablet by mouth 2 (two) times daily. [facility] albuterol 90 mcg/actuati on inhaler 03-31 00:00: 00 Yes 2{puff} Inhale 2 Puffs every 6 (six) hours as needed for Wheezing or Shortness of Breath. [facility] pantoprazol e 40 mg EC tablet 03-31 00:00: 00 Yes 40mg Take 1 tablet by mouth 2 (two) times daily. [facility]buterol 90 mcg/actuati on inhaler 03-31 00:00: 00 Yes 2{puff} Inhale 2 Puffs every 6 (six) hours as needed for Wheezing or Shortness of Breath. [facility] pantoprazol e 40 mg EC tablet 03-31 00:00: 00 Yes 40mg Take 1 tablet by mouth 2 (two) times daily. [facility] albuterol 90 mcg/actuati on inhaler 03-31 00:00: 00 Yes 2{puff} Inhale 2 Puffs every 6 (six) hours as needed for Wheezing or Shortness of Breath. [facility] pantoprazol e 40 mg EC tablet 03-31 00:00: 00 Yes 40mg Take 1 tablet by mouth 2 (two) times daily. [facility] albuterol 90 mcg/actuati on inhaler 03-31 00:00: 00 Yes 2{puff} Inhale 2 Puffs every 6 (six) hours as needed for Wheezing or Shortness of Breath. [facility] pantoprazol e 40 mg EC tablet 03-31 00:00: 00 Yes 40mg Take 1 tablet by mouth 2 (two) times daily. [facility] albuterol 90 mcg/actuati on inhaler 03-31 00:00: 00 Yes 2{puff} Inhale 2 Puffs every 6 (six) hours as needed for Wheezing or Shortness of Breath. [facility] pantoprazol e 40 mg EC tablet 03-31 00:00: 00 Yes 40mg Take 1 tablet by mouth 2 (two) times daily. [facility] albuterol 90 mcg/actuati on inhaler 03-31 00:00: 00 Yes 2{puff} Inhale 2 Puffs every 6 (six) hours as needed for Wheezing or Shortness of Breath. [facility] pantoprazol e 40 mg EC tablet 03-31 00:00: 00 Yes 40mg Take 1 tablet by mouth 2 (two) times daily. [facility] albuterol 90 mcg/actuati on inhaler 03-31 00:00: 00 Yes 2{puff} Inhale 2 Puffs every 6 (six) hours as needed for Wheezing or Shortness of Breath. [facility] pantoprazol e 40 mg EC tablet 03-31 00:00: 00 Yes 40mg Take 1 tablet by mouth 2 (two) times daily. [facility] albuterol 90 mcg/actuati on inhaler 03-31 00:00: 00 Yes 2{puff} Inhale 2 Puffs every 6 (six) hours as needed for Wheezing or Shortness of Breath. [facility] Vital Signs Vital Name Observation Time Observation Value Comments S ource Systolic blood pressure 2020-04-04 16:13:00 137 mm[Hg] [facility] Diastolic blood pressure 2020-04-04 16:13:00 82 mm[Hg] [facility] Heart rate 2020-04-04 16:13:00 101 /min [facility] Body height 2020-04-04 16:13:00 157.5 cm [facility] Body weight 2020-04-04 16:13:00 72.576 kg [facility] BMI 2020-04-04 16:13:00 29.26 kg/m2 [facility] Systolic blood pressure 2020-04-04 16:13:00 137 mm[Hg] [facility] Diastolic blood pressure 2020-04-04 16:13:00 82 mm[Hg] [facility] Heart rate 2020-04-04 16:13:00 101 /min [facility] Body height 2020-04-04 16:13:00 157.5 cm [facility] Body weight 2020-04-04 16:13:00 72.576 kg [facility] BMI 2020-04-04 16:13:00 29.26 kg/m2 [facility] Systolic blood pressure 2020-03-02 13:56:00 128 mm[Hg] [facility] Diastolic blood pressure 2020-03-02 13:56:00 78 mm[Hg] [facility] Heart rate 2020-03-02 13:55:00 100 /min [facility] Respiratory rate 2020-03-02 13:55:00 16 /min [facility] Body height 2020-03-02 13:55:00 [facility] 2020-03-02 13:55:00 73.755 kg [facility] BMI 2020-03-02 13:55:00 29.74 kg/m2 [facility] Oxygen saturation in Arterial blood by Pulse oximetry 2020-03-02 13:55:00 98 /min [facility] Systolic blood pressure 2020-02-22 19:48:00 128 mm[Hg] [facility] Diastolic blood pressure 2020-02-22 19:48:00 77 mm[Hg] [facility] Heart rate 2020-02-22 19:48:00 109 /min [facility] Body height 2020-02-22 19:48:00 157.5 cm [facility] Body weight 2020-02-22 19:48:00 72.984 kg [facility] BMI 2020-02-22 19:48:00 29.43 kg/m2 [facility] Systolic blood pressure 2020-01-28 16:24:00 126 mm[Hg] [facility] Diastolic blood pressure 2020-01-28 16:24:00 64 mm[Hg] [facility] Heart rate 2020-01-28 16:24:00 88 /min [facility] Body temperature 2020-01-28 16:24:00 36.67 Stefany [facility] Respiratory rate 2020-01-28 16:24:00 18 /min [facility] Oxygen saturation in Arterial blood by Pulse oximetry 2020-01-28 16:24:00 97 /min [facility] Body height 2020-01-25 02:01:00 157.5 cm [facility] Body weight 2020-01-25 02:01:00 67.586 kg [facility] BMI 2020-01-25 02:01:00 27.25 kg/m2 [facility] Systolic blood pressure 2020-01-21 18:46:00 143 mm[Hg] [facility] Diastolic blood pressure 2020-01-21 18:46:00 84 mm[Hg] [facility] Heart rate 2020-01-21 18:46:00 76 /min [facility] Body temperature 2020-01-21 18:43:00 37.17 Stefany [facility] Respiratory rate 2020-01-21 18:43:00 15 /min [facility] Body height 2020-01-21 18:43:00 157.5 cm [facility] Body weight 2020-01-21 18:43:00 72.122 kg [facility] BMI 2020-01-21 18:43:00 29.08 kg/m2 [facility] Procedures Procedure Date / Time Performed Performing Clinician Source EMG 2022-09-11 13:06:[address] [facility] 2020-03-02 05:01:00 Doctor Unassigned, [place]eyer [facility] BASIC METABOLIC PANEL (NA, K, CL, CO2, GLUCOSE, BUN, CREATININE, CA) 2020-01-28 09:58:00 Wilfredo Devine [facility] CBC WITH DIFFERENTIAL 2020-01-28 09:58:00 Rosalba Devine [facility] XR LUMBAR SPINE 1 VW 2020-01-27 20:09:01 Josefa Marcano [facility] XR LUMBAR SPINE 1 VW 2020-01-27 19:46:40 Josefa Marcano [facility] LAMINECTOMY LUMBAR WITH DISCECTOMY 2020-01-27 18:12:00 Qian Andrade [facility] URINE CULTURE 2020-01-27 17:19:00 [facility] PROT[facility]OMBIN TIME / INR 2020-01-27 12:35:00 Farhana Devine [facility] ACTIVATED PARTIAL THRMPLAS DONAL 2020-01-27 12:35:[facility] 2020-01-27 12:30:00 Wilfredo Devine [facility] CBC WITH DIFFERENTIAL 2020-01-27 10:04:00 Rosalba Devine [facility] BASIC METABOLIC PANEL (NA, K, CL, CO2, GLUCOSE, BUN, CREATININE, CA) 2020-01-27 10:04:00 Wilfredo Devine [facility] CBC WITH DIFFERENTIAL 2020-01-26 09:35:00 Rosalba Devine [facility] BASIC METABOLIC PANEL (NA, K, CL, CO2, GLUCOSE, BUN, CREATININE, CA) 2020-01-26 09:35:00 Wilfredo Devine [facility] CBC WITH DIFFERENTIAL 2020-01-25 09:15:00 Rosalba Devine [facility] BASIC METABOLIC PANEL (NA, K, CL, CO2, GLUCOSE, BUN, CREATININE, CA) 2020-01-25 09:15:00 Wilfredo Devine [facility] PROTHROMBIN TIME / INR 2020-01-25 00:22:00 Farhana Devine [facility] ACTIVATED PARTIAL THRMPLAS DONAL 2020-01-25 00:22:00 Wilfredo Devine [facility] FIBRINOGEN 2020-01-25 00:22:00 Wilfredo Devine [facility] BASIC METABOLIC PANEL (NA, K, CL, CO2, GLUCOSE, BUN, CREATININE, CA) 2020-01-25 00:22:00 [facility] 2020-01-25 00:21:00 Rosalba Devine [facility] MR LUMBAR SPINE W WO CONTRAST 2020-01-24 02:15:00 Avis Shin [facility] COVID-19 (ID NOW RAPID TESTING) 2020-01-24 00:01:00 Avis Shin [facility] URINALYSIS 2020-01-23 22:59:00 Shin Albarran [facility] BASIC METABOLIC PANEL (NA, K, CL, CO2, GLUCOSE, BUN, CREATININE, CA) 2020-01-23 22:58:00 Shin Albarran [facility] Encounters Start Date/Time End Date/Time Encounter Type Admission Type Attending Clinicians Care Facility Care Department Encounter ID Source 2022-09-10 10:18:18 Outpatient [facility] [id number] [facility] 2022-09-09 19:28:09 Outpatient [facility] [id number] [facility] 2022-09-06 07:03:24 Outpatient [facility] [id number] [facility] 2022-09-05 15:25:22 Outpatient [facility] [id number] [facility] 2022-08-09 09:09:35 Outpatient [facility] [id number] [facility] 2021-05-18 04:44:59 Emergency [facility] [id number] [facility] 2023-07-18 00:00:00 2023-07-18 00:00:00 Outpatient [facility] [id number] [facility] 2023-05-16 00:00:00 2023-05-16 00:00:00 Outpatient [id number] [email or web address] PRIV [facility] [id number] [facility] 2022-09-10 11:00:00 2022-09-10 15:58:19 Ancillary Procedure Julia Del Rosario [facility] 1..840.114 350.1.13.58 9.2.7.2.686 [id number] [facility] 2022-09-03 11:00:00 2022-09-03 11:00:00 Outpatient JULIA DEL ROSARIO [facility] [id number] [facility] 2021-09-03 00:00:00 2021-09-03 00:00:00 Telephone Francisco Sharma [facility] 1..840.114 350.1.13.58 9.2.7.2.686 [id number] [facility] 2021-05-11 17:52:00 2021-05-11 21:42:00 Inpatient Federico Patel [facility] [id number] [facility] 2020-10-10 00:00:00 2020-10-10 00:00:00 Patient Outreach Mohit Gaston [facility] [id number] 350.1.13.10 4.2.7.2.686 [id number] 2020-10-10 00:00:00 2020-10-10 00:00:00 Patient Outreach Mohit Gaston [facility] [id number] 350.1.13.10 4.2.7.2.686 [id number] [facility] 2020-04-04 11:15:00 2020-04-04 11:15:00 Outpatient Radha [facility]RADE [facility] [id number] [facility] 2020-04-04 11:15:00 2020-04-04 11:15:00 Outpatient R NITIN [facility] [id number] [facility] 2020-04-04 10:33:36 2020-04-04 10:48:36 [facility] 1.2.840.114 350.1.13.10 4.2.7.2.686 [id number] 2020-04-04 10:33:36 2020-04-04 10:48:36 [facility] 1.2.840.114 350.1.13.10 4.2.7.2.686 [id number] [facility] 2020-03-29 11:15:00 2020-03-29 11:15:00 Outpatient Radha ANDRADE [facility] [id number] [facility] 2020-03-24 00:00:00 2020-03-24 00:00:00 [facility] 1.2.840.114 350.1.13.10 4.2.7.2.686 [id number] [facility] 2020-03-23 14:30:00 2020-03-23 14:30:00 Outpatient R [facility]REEN [facility] [id number] [facility] 2020-03-23 00:00:00 2020-03-23 00:00:00 [facility] 1.114 350.1.13.10 4.2.7.2.686 [id number] [facility] 2020-03-15 10:30:00 2020-03-15 10:30:00 Outpatient R QIAN ANDRADE [facility] [id number] [facility] 2020-03-02 08:38:55 2020-03-02 10:24:57 Office Visit Nasreen [facility] 1.114 350.1.13.10 4.2.7.2.686 [id number] [facility] 2020-03-02 09:00:00 2020-03-02 09:00:00 Outpatient R [facility] [id number] [facility] 2020-03-02 00:00:00 2020-03-02 00:00:00 Orders Only Doctor Unassigned, [facility] 1.114 350.1.13.10 4.2.7.2.686 [id number] [facility] 2020-02-22 13:48:46 2020-02-22 15:34:27 Office Visit Qian Andrade [facility] 1.2114 350.1.13.10 4.2.7.2.686 [id number] [facility] 2020-02-22 14:15:00 2020-02-22 14:15:00 Outpatient R NITIN [facility] [id number] [facility] 2020-02-17 00:00:00 2020-02-17 00:00:00 Telephone Nitin [facility] Office Building 1.2840.114 350.1.13.10 4.2.7.2.686 [id number] [facility] 2020-02-11 12:40:36 2020-02-11 14:03:31 Office Visit Clinic, Neurosurger y Resident Nitin [facility] 1.2840.114 350.1.13.10 4.2.7.2.686 [id number] [facility] 2020-02-11 13:00:00 2020-02-11 13:00:00 Outpatient R MARIAJOSESTEFFI [facility] [id number] [facility] 2020-02-03 00:00:00 2020-02-03 00:00:00 Telephone Nitin [facility] Medical Office Building 1.2840.114 350.1.13.10 4.2.7.2.686 [id number] [facility] 2020-01-31 00:00:00 2020-01-31 00:00:00 Transition of Care Michaela Marie 1.2840.114 350.1.13.10 4.2.7.2.686 [id number] [facility] 2020-01-23 16:20:21 2020-01-28 15:18:00 Hospital Encounter Jenelle Guardado, [facility]in Johnson[facility] 1.2840.114 350.1.13.10 4.2.7.2.686 [id number] [facility] 2020-01-25 00:00:00 2020-01-25 00:00:00 Telephone Shin Albarran [facility] 1.840.114 350.1.13.10 4.2.7.2.686 [id number] [facility] 2020-01-21 13:30:27 2020-01-21 14:00:27 Office Visit Yadi Gutierrez [facility] 1.840.114 350.1.13.10 4.2.7.2.686 [id number] [facility] 2020-01-21 13:15:00 2020-01-21 13:15:00 Outpatient R YADI GUTIERREZ [facility] [id number] [facility] 2017-03-26 14:55:00 2017-03-26 14:55:00 Emergency E [facility] [id number] [facility] 2017-03-07 17:01:00 2017-03-07 17:01:00 Emergency E [facility] [id number] [facility] 2017-02-22 11:40:00 2017-02-22 11:40:00 Emergency E [facility] [id number] [facility] Results Test Description Test Time Test Comments Results Resul t Comments Source - CT ABD PELVIS W/CONT 2021-05-11 20:45:[facility] 1965 Sex: F Name: KEKE HAYNES [facility] : 1965 Age/S: 55 / F [id number] [address] [place] Unit #: [id number] Loc: [place]ing[place] [address] Phys: Federico Qureshi DO Acct: [id number] Dis Date: Status: REG ER PHONE #: [phone] Exam Date: 05/11/20212029 FAX #: Reason: pain - s/p colonoscopy yesterday EXAMS: CPT: [id number] CT ABD PELVIS W/CONT 82761 EXAMINATION: - CT ABD PELVIS W/CONT COMPARISON: [...] HAYNES : 1965 Age/S: 55 / F [id number] [address] [place] Unit #: [id number] Loc: [place] Doming[place] [address] Phys: Federico Qureshi DO Acct: [id number] Dis Date: Status: REG ER PHONE #: [phone] Exam Date: 05/11/20212029 FAX #: Reason: pain - s/p colonoscopy yesterday EXAMS: CPT: [id number] CT ABD PELVIS W/CONT 11117 (Continued) No evidence of bowel perforation or [...] S: 05/11/2021 (2047) PAGE 2 Signed Report BASIC METABOLIC [id number] 19:26:00* Test Item Value Reference Range Interpretation Comme nts SODIUM (test code = NA) 138 mmol/L 134-147 N POTASSIUM (test code = K) 3.7 mmol/L 3.4-5.0 N CHLORIDE (test code = CL) 104 mmol/L 100-108 N CARBON DIOXIDE (test code = CO2) 26 mmol/L 21-32 N ANION GAP (test code = GAP) 8.0 GAP calc 4.0-15.0 N GLUCOSE (test code = GLU) 102 MG/DL 70-110 N BLOOD UREA NITROGEN (test code = BUN) 9 MG/DL 7-18 N GLOMERULAR FILTRATION RATE (test code = GFR) >=60 max estimate estGFR >60 CREATININE (test code = CREAT) 0.6 MG/DL 0.6-1.0 N CALCIUM (test code = CA) 9.5 MG/DL 8.5-10.1 N HEPATIC FUNCTION [id number] 19:26:00* Test Item Value Reference Range Interpretation Comme nts TOTAL PROTEIN (test code = PROT) 7.9 G/DL 6.4-8.2 N ALBUMIN (test code = ALB) 4.1 G/DL 3.4-5.0 N BILIRUBIN TOTAL (test code = BILT) 0.40 MG/DL 0.2-1.2 N BILIRUBIN DIRECT (test code = BILD) < 0.10 MG/DL 0.00-0.30 N BILIRUBIN INDIRECT (test cod e = BILIND) 0.30 MG/DL 0.2-1.2 N SGOT/AST (test code = AST) 29 Unit/L 15-37 N SGPT/ALT (test code = ALT) 52 Unit/L 12-78 N ALKALINE PHOSPHATASE TOTAL ( test code = ALKP) 108 Unit/L 45-117 N UA RFLX MICR CULT IF [id number] 19:08:00* Test Item Value Reference Range Interpretation Comme nts UA COLOR (test code = COLU) YELLOW discript YEL/STRAW UA APPEARANCE (test code = APPU) CLEAR discript CLEAR UA GLUCOSE DIPSTICK (test code = DGLUU) NEGATIVE mg/dL NEG UA BILIRUBIN DIPSTICK (test code = BILU) NEGATIVE mg/dL NEG UA KETONE DIPSTICK (test code = KETU) NEGATIVE mg/dL NEG UA SPECIFIC GRAVITY (test code = SGU) <=1.005 SG 1.005-1.030 UA BLOOD DIPSTICK (test code = ERMELINDA) 1+ mg/DL NEG A UA PH DIPSTICK (test code = SID) 6.0 pH UNITS 5.0-7.0 UA PROTEIN DIPSTICK (test code = PROU) NEGATIVE mg/dL NEG UA UROBILINIOGEN DIPSTICK (test code = URO) 0.2 mg/dL <2.0 UA NITRITE DIPSTICK (test code = RADHA) NEGATIVE SCREEN NEG UA LEUKOCYTE ESTERASE DIPSTICK (test code = LEUU) NEGATIVE Leuk/mcL NEGATIVE UA CULTURE NEEDED? (test code = UACULT) NO, WBC<10 Criteria Culture CHK UA WBC (test code = WBCU) NONE SEEN #WBC/HPF 0-3 UA RBC (test code = RBCU) NONE SEEN #RBC/HPF 0-3 UA BACTERIA (test code = BACU) TRACE /HPF NONE-TRACE Indication for culture: Flank PainCBC W/AUTO [id number] 18:41:00* Test Item Value Reference Range Interpretation Comme nts WHITE BLOOD CELL (test code = WBC) 6.6 K/mm3 3.5-11.0 N RED BLOOD CELL (test code = RBC) 4.27 M/mm3 4.70-6.10 L HEMOGLOBIN (test code = HGB) 12.9 G/DL 10.4-14.9 N HEMATOCRIT (test code = HCT) 39.5 % 31.5-44.1 N MEAN CELL VOLUME (test code = MCV) 92.5 Fl 84.5-98.6 N MEAN CELL HGB (test code = MCH) 30.2 pg 27.0-34.2 N MEAN CELL HGB CONCETRATION (test code = MCHC) 32.7 G/DL 31.5-34.0 N RED CELL DISTRIBUTION WIDTH (test code = RDW) 12.7 SD 11.5-14.5 N PLATELET COUNT (test code = PLT) 344 K/mm3 150-450 N MEAN PLATELET VOLUME (test c ode = MPV) 8.30 fL 7.0-10.5 N NEUTROPHIL % (test code = NT%) 52.6 % 40-76 N IMMATURE GRANULOCYTE % (test code = IG%) 0.2 % 0.0-5.0 N LYMPHOCYTE % (test code = LY%) 36.7 % 20.5-51.1 N MONOCYTE % (test code = MO%) 7.2 % 1.7-9.3 N EOSINOPHIL % (test code = EO%) 3.0 % 0.0-6.0 N BASOPHIL % (test code = BA%) 0.3 % 0.0-2.0 N NUCLEATED RBC % (test code = NRBC%) 0.0 /100WBC% 0.0-1.0 N NEUTROPHIL # (test code = NT#) 3.5 K/mm3 1.8-7.6 N IMMATURE GRANULOCYTE # (test code = IG#) 0.01 x10 3/uL 0.00-0.03 N LYMPHOCYTE # (test code = LY#) 2.4 K/mm3 0.6-3.2 N MONOCYTE # (test code = MO#) 0.5 K/mm3 0.3-1.1 N EOSINOPHIL # (test code = EO#) 0.2 K/mm3 0.0-0.4 N BASOPHIL # (test code = BA#) 0.0 K/mm3 0.0-0.1 N NUCLEATED RBC # (test code = NRBC#) 0.0 K/mm3 0.0-0.1 N MANUAL DIFF REQUIRED (test c ode = MDIFF) NO DIFF/SCN CRITERIA URINE [id number] 11:57:00* Test Item Value Reference Range Interpretation Comme nts URINE CULTURE (test code = 630-4) No aerobic organisms isolated [facility] METABOLIC PANEL (NA, K, CL, CO2, GLUCOSE, BUN, CREATININE, CA)2020-01-28 10:47:00* Test Item Value Reference Range Interpretation Comme nts NA (test code = 6672532344) 135 mmol/L 135-145 K (test code = 0534175583) 4.0 mmol/L 3.5-5 CL (test code = 4853037640) 104 mmol/L 98-108 CO2 TOTAL (test code = 2645300766) 26 mmol/L 23-31 AGAP (test code = 5637328623) 2-16 BUN (test code = 3840439832) 7 mg/dL 7-23 GLUCOSE (test code = 4452737720) 128 mg/dL 70-110 H CREATININE (test code = 5302563586) 0.42 mg/dL 0.5-1.04 L CALCIUM (test code = 6885335592) 9.1 mg/dL 8.6-10.6 eGFR Calculation (Non-) (test code = 1361288001) mL/min/1.73m2 eGFR Calculation () (test code = 1545934634) mL/min/1.73m2 SOLEDAD (test code = SOLEDAD) Association of [...] or abnormalities in imaging tests). Lab Interpretation (test code = 23563-1) Abnormal [facility] WITH [id number] 10:28:00* Test Item Value Reference Range Interpretation Comme nts WBC (test code = 6690-2) See_Comment H [Automated message] The system which generated this result transmitted reference range: 4.30 - 11.10 10*3/?L. The reference range was not used to interpret this result as normal/abnormal. RBC (test code = 789-8) See_Comment L [Automated message] The system which generated this result transmitted reference range: 3.93 - 5.25 10*6/?L. The reference range was not used to interpret this result as normal/abnormal. HGB (test code = 718-7) 11.6 g/dL 11.6-15 HCT (test code = 4544-3) 34.9 % 35.7-45.2 L MCV (test code = 787-2) 90.9 fL 80.6-95.5 MCH (test code = 785-6) 30.2 pg 25.9-32.8 MCHC (test code = 786-4) 33.2 g/dL 31.6-35.1 RDW-SD (test code = 76744-8) 40.6 fL 39-49.9 RDW-CV (test code = 788-0) 12.2 % 12-15.5 PLT (test code = 777-3) See_Comment [Automated message] The system which generated this result transmitted reference range: 166 - 358 10*3/?L. The reference range was not used to interpret this result as normal/abnormal. MPV (test code = 47765-9) 8.8 fL 9.5-12.9 L NRBC/100 WBC (test code = 4545060827) See_Comment [Automated message] The system which generated this result transmitted reference range: 0.0 - 10.0 /100 WBCs. The reference range was not used to interpret this result as normal/abnormal. NRBC x10^3 (test code = 9962339841) <0.01 See_Comment [Automated message] The system which generated this result transmitted reference range: 10*3/?L. The reference range was not used to interpret this result as normal/abnormal. GRAN MAT (NEUT) % (test code = 770-8) 84.9 % IMM GRAN % (test code = 4087845049) 0.40 % LYMPH % (test code = 736-9) 10.7 % MONO % (test code = 5905-5) 3.7 % EOS % (test code = 713-8) 0.1 % BASO % (test code = 706-2) 0.2 % GRAN MAT x10^3(ANC) (test code = 6988385269) 10.00 10*3/uL 1.88-7.09 H IMM GRAN x10^3 (test code = 2477870046) 0.05 10*3/uL 0-0.06 LYMPH x10^3 (test code = 731-0) 1.26 10*3/uL 1.32-3.29 L MONO x10^3 (test code = 742-7) 0.43 10*3/uL 0.33-0.92 EOS x10^3 (test code = 711-2) <0.03 0.03-0.39 L BASO x10^3 (test code = 704-7) <0.03 0.01-0.07 Lab Interpretation (test code = 14547-8) [facility] [id number] 20:33:47Lateral intraoperative radiographs of the lumbar spine was obtained. ?Themost inferior fully formeddisc is presumed L5-S1. On the second lateral intraoperative radiograph, superior localizinginstrument tips are identified L2-L3 level. Inferior localizing instrumenttip is identified at L5-S1 level.EXAMINATION: XR LUMBAR SPINE 1 VW CLINICAL HISTORY: Intraoperative COMPARISON: ?None [facility], Radiant Results Inft User - 01/27/2020 3:34 PM CDTEXAMINATION: XR LUMBAR SPINE 1 VWCLINICAL HISTORY: IntraoperativeCOMPARISON: NoneIMPRESSIONLateral intraoperative radiographs of the lumbar spine was obtained.Themost inferior fully formed disc is presumed L5-S1.On the second lateral intraoperative radiograph, superior localizinginstrument tips are identified L2-L3 level. Inferior localizing instrumenttip is identified at L5-S1 level.[facility] [id number] 19:58:40Single lateral intraoperative radiograph of the lumbar spine was obtained. The most inferior fully formed disc is presumed L5-S1. The superior localizing instrument tip is posterior to the L1 spinousprocess at the level of the L2 vertebral body. The inferior localizinginstrument tip is at the levelof the L5 vertebral body.EXAMINATION: XR LUMBAR SPINE 1 CLINICAL HISTORY: Intraoperative COMPARIS ON: ?None [facility], Radiant Results Inft User - 01/27/2020 2:59 PM CDTEXAMINATION: XR LUMBAR SPINE 1 VWCLINICAL HISTORY: IntraoperativeCOMPARISON: NoneIMPRESSIONSingle lateral intraoperative radiograph of the lumbar spine was obtained. The most inferior fully formed disc is presumed L5-S1.The superior l ocalizing instrument tip is posterior to the L1 spinousprocess at the level of the L2 vertebral body. The inferior localizinginstrument tip is at the level of the L5 vertebral body.[facility] / INR 2020-01-27 13:21:00* Test Item Value Reference Range Interpretation Comme [facility] PROTIME PATIENT (test code = 5964-2) See_Comment [Automated [employer]] The system which generated this result transmitted reference range: 10.1 - 12.6 Seconds. The reference range was not used to interpret this result as normal/abnormal. INR (test code = 6301-6) Normal INR <1.1; Warfarin Therapeutic range 2.0 to 3.0 or 2.5 to 3.5, depending upon the indications. Lab Interpretation (test code = 37632-5) Normal [facility] 13:21:00* Test Item Value Reference Range Interpretation Comme [facility] APTT Patient (test code = 3173-2) See_Comment H [Automated [employer]] The system which generated this result transmitted reference range: 26 - 36 Seconds. The reference range was not used to interpret this result as normal/abnormal. Lab Interpretation (test code = 41932-3) Abnormal [facility] and Screen - ONCE [id number] 13:15:10 * Test Item Value Reference Range Interpretation Comme nts ABO & RH (test code = 20) O POSITIVE Performed at [facility] Laboratory Services - [facility] Blood [address] Free: [phone] No. [id number] IAT (test code = 1185) Negative Performed at [facility] Laboratory Services - [facility] Blood [address] Free: [phone] No. [id number] [facility] (NA, K, CL, CO2, GLUCOSE, BUN, CREATININE, CA)2020-01-27 10:53:00* Test Item Value Reference Range Interpretation Comme nts NA (test code = 7706722643) 138 mmol/L 135-145 K (test code = 0032611032) 3.7 mmol/L 3.5-5 CL (test code = 4199289880) 105 mmol/L 98-108 CO2 TOTAL (test code = 2187519359) 26 mmol/L 23-31 AGAP (test code = 8788890610) 2-16 BUN (test code = 8510116302) 13 mg/dL 7-23 GLUCOSE (test code = 3573712726) 98 mg/dL 70-110 CREATININE (test code = 2622828863) 0.51 mg/dL 0.5-1.04 CALCIUM (test code = 3222355930) 9.1 mg/dL 8.6-10.6 eGFR Calculation (Non-) (test code = 8102205561) mL/min/1.73m2 eGFR Calculation () (test code = 8622646875) mL/min/1.73m2 SOLEDAD (test code = SOLEDAD) Association of [...] or urine or abnormalities in imaging tests). [facility] WITH [id number] 10:32:00* Test Item Value Reference Range Interpretation Comme nts WBC (test code = 6690-2) See_Comment [[employer]] The system which generated this result transmitted reference range: 4.30 - 11.10 10*3/?L. The reference range was not used to interpret this result as normal/abnormal. RBC (test code = 789-8) See_Comment [[employer]] The system which generated this result transmitted reference range: 3.93 - 5.25 10*6/?L. The reference range was not used to interpret this result as normal/abnormal. HGB (test code = 718-7) 12.5 g/dL 11.6-15 HCT (test code = 4544-3) 37.1 % 35.7-45.2 MCV (test code = 787-2) 89.6 fL 80.6-95.5 MCH (test code = 785-6) 30.2 pg 25.9-32.8 MCHC (test code = 786-4) 33.7 g/dL 31.6-35.1 RDW-SD (test code = 37595-8) 39.8 fL 39-49.9 RDW-CV (test code = 788-0) 12.2 % 12-15.5 PLT (test code = 777-3) See_Comment [Automated messa ge] The system which generated this result transmitted reference range: 166 - 358 10*3/?L. The reference range was not used to interpret this result as normal/abnormal. MPV (test code = 07505-6) 8.5 fL 9.5-12.9 L NRBC/100 WBC (test code = 0898302850) See_Comment [Automated Patterns ssage] The system which generated this result transmitted reference range: 0.0 - 10.0 /100 WBCs. The reference range was not used to interpret this result as normal/abnormal. NRBC x10^3 (test code = 4918306186) <0.01 See_Comment [Automated byUsa ge] The system which generated this result transmitted reference range: 10*3/?L. The reference range was not used to interpret this result as normal/abnormal. GRAN MAT (NEUT) % (test code = 770-8) 44.4 % IMM GRAN % (test code = 8888125698) 0.30 % LYMPH % (test code = 736-9) 42.7 % MONO % (test code = 5905-5) 7.1 % EOS % (test code = 713-8) 4.9 % BASO % (test code = 706-2) 0.6 % GRAN MAT x10^3(ANC) (test code = 2909156876) 2.81 10*3/uL 1.88-7.09 IMM GRAN x10^3 (test code = 4494995623) <0.03 0-0.06 LYMPH x10^3 (test code = 731-0) 2.71 10*3/uL 1.32-3.29 MONO x10^3 (test code = 742-7) 0.45 10*3/uL 0.33-0.92 EOS x10^3 (test code = 711-2) 0.31 10*3/uL 0.03-0.39 BASO x10^3 (test code = 704-7) 0.04 10*3/uL 0.01-0.07 Lab Interpretation (test code = 39887-0) Abnormal [facility] METABOLIC PANEL (NA, K, CL, CO2, GLUCOSE, BUN, CREATININE, CA)2020-01-26 11:01:00* Test Item Value Reference Range Interpretation Comme nts NA (test code = 4527914526) 135 mmol/L 135-145 K (test code = 6540442971) 4.3 mmol/L 3.5-5 Slight hemolysis CL (test code = 7575405502) 105 mmol/L 98-108 CO2 TOTAL (test code = 2677969829) 22 mmol/L 23-31 L AGAP (test code = 4111772105) 2-16 BUN (test code = 6551562166) 17 mg/dL 7-23 Slight hemolysis GLUCOSE (test code = 0346946786) 103 mg/dL 70-110 CREATININE (test code = 9044431210) 0.59 mg/dL 0.5-1.04 CALCIUM (test code = 4550427640) 9.3 mg/dL 8.6-10.6 eGFR Calculation (Non-) (test code = 9741416407) mL/min/1.73m2 eGFR Calculation () (test code = 6841448198) mL/min/1.73m2 SOLEDAD (test code = SOLEDAD) Association of [...] or abnormalities in imaging tests). Lab Interpretation (test code = 73118-9) Abnormal [facility] WITH [id number] 10:18:00* Test Item Value Reference Range Interpretation Comme nts WBC (test code = 6690-2) See_Comment [Automated [employer]] The system which generated this result transmitted reference range: 4.30 - 11.10 10*3/?L. The reference range was not used to interpret this result as normal/abnormal. RBC (test code = 789-8) See_Comment [[employer]] The system which generated this result transmitted reference range: 3.93 - 5.25 10*6/?L. The reference range was not used to interpret this result as normal/abnormal. HGB (test code = 718-7) 12.8 g/dL 11.6-15 HCT (test code = 4544-3) 38.0 % 35.7-45.2 MCV (test code = 787-2) 90.7 fL 80.6-95.5 MCH (test code = 785-6) 30.5 pg 25.9-32.8 MCHC (test code = 786-4) 33.7 g/dL 31.6-35.1 RDW-SD (test code = 81402-4) 40.5 fL 39-49.9 RDW-CV (test code = 788-0) 12.2 % 12-15.5 PLT (test code = 777-3) See_Comment H [[employer]] The system which generated this result transmitted reference range: 166 - 358 10*3/?L. The reference range was not used to interpret this result as normal/abnormal. MPV (test code = 29460-2) 9.1 fL 9.5-12.9 L NRBC/100 WBC (test code = 5568391429) See_Comment [Automated Patterns ssage] The system which generated this result transmitted reference range: 0.0 - 10.0 /100 WBCs. The reference range was not used to interpret this result as normal/abnormal. NRBC x10^3 (test code = 6126153738) <0.01 See_Comment [Automated messa ge] The system which generated this result transmitted reference range: 10*3/?L. The reference range was not used to interpret this result as normal/abnormal. GRAN MAT (NEUT) % (test code = 770-8) 44.6 % IMM GRAN % (test code = 9395520948) 0.10 % LYMPH % (test code = 736-9) 42.5 % MONO % (test code = 5905-5) 7.2 % EOS % (test code = 713-8) 5.2 % BASO % (test code = 706-2) 0.4 % GRAN MAT x10^3(ANC) (test code = 8561695764) 3.01 10*3/uL 1.88-7.09 IMM GRAN x10^3 (test code = 0909912298) <0.03 0-0.06 LYMPH x10^3 (test code = 731-0) 2.88 10*3/uL 1.32-3.29 MONO x10^3 (test code = 742-7) 0.49 10*3/uL 0.33-0.92 EOS x10^3 (test code = 711-2) 0.35 10*3/uL 0.03-0.39 BASO x10^3 (test code = 704-7) 0.03 10*3/uL 0.01-0.07 Lab Interpretation (test code = 29792-8) Abnormal [facility] WITH [id number] 10:55:00* Test Item Value Reference Range Interpretation Comme nts WBC (test code = 6690-2) See_Comment [Automated messa ge] The system which generated this result transmitted reference range: 4.30 - 11.10 10*3/?L. The reference range was not used to interpret this result as normal/abnormal. RBC (test code = 789-8) See_Comment [Automated messa ge] The system which generated this result transmitted reference range: 3.93 - 5.25 10*6/?L. The reference range was not used to interpret this result as normal/abnormal. HGB (test code = 718-7) 12.3 g/dL 11.6-15 HCT (test code = 4544-3) 37.1 % 35.7-45.2 MCV (test code = 787-2) 90.9 fL 80.6-95.5 MCH (test code = 785-6) 30.1 pg 25.9-32.8 MCHC (test code = 786-4) 33.2 g/dL 31.6-35.1 RDW-SD (test code = 14520-5) 41.4 fL 39-49.9 RDW-CV (test code = 788-0) 12.5 % 12-15.5 PLT (test code = 777-3) See_Comment [Automated byUsa ge] The system which generated this result transmitted reference range: 166 - 358 10*3/?L. The reference range was not used to interpret this result as normal/abnormal. MPV (test code = 82040-9) 9.2 fL 9.5-12.9 L NRBC/100 WBC (test code = 7670688346) See_Comment [Automated Patterns ssage] The system which generated this result transmitted reference range: 0.0 - 10.0 /100 WBCs. The reference range was not used to interpret this result as normal/abnormal. NRBC x10^3 (test code = 4166907386) <0.01 See_Comment [Automated by[employer] ge] The system which generated this result transmitted reference range: 10*3/?L. The reference range was not used to interpret this result as normal/abnormal. GRAN MAT (NEUT) % (test code = 770-8) 31.3 % IMM GRAN % (test code = 1019375796) 0.20 % LYMPH % (test code = 736-9) 53.1 % MONO % (test code = 5905-5) 8.6 % EOS % (test code = 713-8) 6.3 % BASO % (test code = 706-2) 0.5 % GRAN MAT x10^3(ANC) (test code = 0096943580) 1.79 10*3/uL 1.88-7.09 L IMM GRAN x10^3 (test code = 6241476942) <0.03 0-0.06 LYMPH x10^3 (test code = 731-0) 3.04 10*3/uL 1.32-3.29 MONO x10^3 (test code = 742-7) 0.49 10*3/uL 0.33-0.92 EOS x10^3 (test code = 711-2) 0.36 10*3/uL 0.03-0.39 BASO x10^3 (test code = 704-7) 0.03 10*3/uL 0.01-0.07 REACT LYMPHS (test code = 3206807149) Moderate Lab Interpretation (test code = 30992-9) Abnormal [facility] METABOLIC PANEL (NA, K, CL, CO2, GLUCOSE, BUN, CREATININE, CA)2020-01-25 10:38:00* Test Item Value Reference Range Interpretation Comme nts NA (test code = 5232572946) 139 mmol/L 135-145 K (test code = 3209772343) 4.0 mmol/L 3.5-5 CL (test code = 8000475152) 105 mmol/L 98-108 CO2 TOTAL (test code = 7584668500) 26 mmol/L 23-31 AGAP (test code = 5542905940) 2-16 BUN (test code = 1387682028) 12 mg/dL 7-23 GLUCOSE (test code = 4039671756) 99 mg/dL 70-110 CREATININE (test code = 3604217391) 0.47 mg/dL 0.5-1.04 L CALCIUM (test code = 3287817079) 9.2 mg/dL 8.6-10.6 eGFR Calculation (Non-) (test code = 7763923258) mL/min/1.73m2 eGFR Calculation () (test code = 2866589150) mL/min/1.73m2 SOLEDAD (test code = SOLEDAD) Association of [...] or abnormalities in imaging tests). Lab Interpretation (test code = 76766-9) Abnormal [facility] METABOLIC PANEL (NA, K, CL, CO2, GLUCOSE, BUN, CREATININE, CA)2020-01-25 00:52:00* Test Item Value Reference Range Interpretation Comme nts NA (test code = 2543426159) 138 mmol/L 135-145 K (test code = 9434920199) 5.0 mmol/L 3.5-5 Slight hemolysis CL (test code = 5233956662) 107 mmol/L 98-108 CO2 TOTAL (test code = 3522645919) 24 mmol/L 23-31 AGAP (test code = 6941929817) 2-16 BUN (test code = 7649058845) 8 mg/dL 7-23 Slight hemolysis GLUCOSE (test code = 1780046969) 107 mg/dL 70-110 CREATININE (test code = 5649701321) 0.53 mg/dL 0.5-1.04 CALCIUM (test code = 1883679700) 9.3 mg/dL 8.6-10.6 eGFR Calculation (Non-) (test code = 5780145903) mL/min/1.73m2 eGFR Calculation () (test code = 2868378836) mL/min/1.73m2 SOLEDAD (test code = SOLEDAD) Association of [...] or urine or abnormalities in imaging tests). [facility] / [id number] 00:41:00* Test Item Value Reference Range Interpretation Comme nts SHAHNAZ PATIENT (test code = 5964-2) See_Comment [Automated [employer]] The system which generated this result transmitted reference range: 10.1 - 12.6 Seconds. The reference range was not used to interpret this result as normal/abnormal. INR (test code = 6301-6) Normal INR <1.1; Warfarin Therapeutic range 2.0 to 3.0 or 2.5 to 3.5, depending upon the indications. Lab Interpretation (test code = 85687-7) Normal [facility] 00:41:00* Test Item Value Reference Range Interpretation Comme [facility] APTT Patient (test code = 3173-2) See_Comment H [Automated messa ge] The system which generated this result transmitted reference range: 26 - 36 Seconds. The reference range was not used to interpret this result as normal/abnormal. Lab Interpretation (test code = 11799-4) Abnormal [facility]IB[facility]EN2020-07-07 00:41:00* Test Item Value Reference Range Interpretation Comme nts Fibrinogen (test code = 7136788016) 488 mg/dL 167-453 H Lab Interpretation (test cod e = 79908-8) Abnormal [facility] WITH [id number] 00:37:00* Test Item Value Reference Range Interpretation Comme [facility] WBC (test code = 6690-2) See_Comment [Automated messa ge] The system which generated this result transmitted reference range: 4.30 - 11.10 10*3/?L. The reference range was not used to interpret this result as normal/abnormal. RBC (test code = 789-8) See_Comment [Automated messa ge] The system which generated this result transmitted reference range: 3.93 - 5.25 10*6/?L. The reference range was not used to interpret this result as normal/abnormal. HGB (test code = 718-7) 13.4 g/dL 11.6-15 HCT (test code = 4544-3) 40.7 % 35.7-45.2 MCV (test code = 787-2) 90.0 fL 80.6-95.5 MCH (test code = 785-6) 29.6 pg 25.9-32.8 MCHC (test code = 786-4) 32.9 g/dL 31.6-35.1 RDW-SD (test code = 96507-3) 41.0 fL 39-49.9 RDW-CV (test code = 788-0) 12.4 % 12-15.5 PLT (test code = 777-3) See_Comment H [Automated messa ge] The system which generated this result transmitted reference range: 166 - 358 10*3/?L. The reference range was not used to interpret this result as normal/abnormal. MPV (test code = 14495-5) 8.6 fL 9.5-12.9 L NRBC/100 WBC (test code = 0184410397) See_Comment [Automated me ssage] The system which generated this result transmitted reference range: 0.0 - 10.0 /100 WBCs. The reference range was not used to interpret this result as normal/abnormal. NRBC x10^3 (test code = 8659802087) <0.01 See_Comment [Automated messa ge] The system which generated this result transmitted reference range: 10*3/?L. The reference range was not used to interpret this result as normal/abnormal. GRAN MAT (NEUT) % (test code = 770-8) 44.8 % IMM GRAN % (test code = 3011739257) 0.20 % LYMPH % (test code = 736-9) 41.3 % MONO % (test code = 5905-5) 8.3 % EOS % (test code = 713-8) 4.8 % BASO % (test code = 706-2) 0.6 % GRAN MAT x10^3(ANC) (test code = 4146349860) 2.91 10*3/uL 1.88-7.09 IMM GRAN x10^3 (test code = 1538728270) <0.03 0-0.06 LYMPH x10^3 (test code = 731-0) 2.68 10*3/uL 1.32-3.29 MONO x10^3 (test code = 742-7) 0.54 10*3/uL 0.33-0.92 EOS x10^3 (test code = 711-2) 0.31 10*3/uL 0.03-0.39 BASO x10^3 (test code = 704-7) 0.04 10*3/uL 0.01-0.07 Lab Interpretation (test code = 37701-2) Abnormal [facility] LUMBAR SPINE W WO [id number] 13:56:48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 Narrowing of subarticular zones at L2-L3 and L5-S1 with potentialimpingement on the descending L3 and S1 nerve roots.EXAM: MR LUMBAR SPINE W WO CONTRAST HISTORY: Back pain, cauda equina syn drome suspected TECHNIQUE: MRI of the lumbar spine [...] inmoderate spinal canal stenosis and mild left neuralforaminal narrowing.There is narrowing of subarticular zones with potential impingement on thedescending L3 nerve roots. At L3-L4, mild diffuse disc bulge with mild ligamentum flavum thickening.No high-grade spinal canal stenosis or significant neural foraminalnarrowing. At L4-L5, mild diffuse discbulge with mild facet arthrosis and ligamentumflavum thickening [...] was performed on 1.5 Yesenia withoutintravenous contrast.COMPARISON: None.FINDI NGS: The vertebral bodies are normal in height and alignment.Mild heterogenicity of the background bone marrow signal likely due topatchy T1/T2 hyperintensities likely reflective of fatty infiltration. Noabnormal enhancement.Conus medullaris terminates at L1 and is normal. Cauda equina nerve rootsare unremarkable. No abnormal intraspinal enhancement.Disc desiccation is noted at L2-S1.At L1-L2, no high-grade spinal canal stenosis or significant neuralforaminal narrowing.At L2- L3, there is diffuse disc bulge with left paracentral discprotrusion, mild facet arthrosis and ligamentum flavum thickening result inmoderate spinal canal stenosis and mild left neural foraminal narrowing.There is narrowing of subarticular zones with potential impingement on thedescending L3 nerve roots. At L3-L4, mild diffuse disc bulge with mild ligamentum flavum thickening.No high-grade spinal canal stenosis or significant neural foraminalnarrowing.At L4- L5, mild diffuse disc bulge with mild facet arthrosis andligamentumflavum thickening result in mild bilateral neural foraminal narrowing andmild spinal canal stenosis. Small annular fissure noted.At L5-S1, there is a broad-based central disc protrusion with ligamentumflavum thickening result in moderate spinal canal stenosis and subarticularzones narrowing with potential impingement on the descending S1 nerveroots.The paraspinal soft tissues are unremar kable.IMPRESSION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Narrowing of subarticular zones at L2-L3 and L5-S1 with potentialimpingement on the descending L3 and S1 nerve roots.[facility] (ID NOW RAPID TESTING) 2020-01-24 00:44:00* Test Item Value Reference Range Interpretation Comme nts SARS-CoV-2 Rapid ID NOW (test code = 25951-5) Not Detected Not Detected SOLEDAD (test code = SOLEDAD) ID NOW COVID-19 As say is an isothermal nucleic acid amplification test intended for the qualitative detection of nucleic acid from SARS-CoV-2 viral RNA in nasopharyngeal ([employer]) specimens. It is used under Emergency Use [...] patient testing if clinically indicated. Lab Interpretation (test code = 21751-7) Normal [facility] (NA, K, CL, CO2, GLUCOSE, BUN, CREATININE, CA)2020-01-23 23:29:00* Test Item Value Reference Range Interpretation Comme nts NA (test code = 7382144382) 138 mmol/L 135-145 K (test code = 0226144337) 4.3 mmol/L 3.5-5 CL (test code = 1553122663) 108 mmol/L 98-108 CO2 TOTAL (test code = 4132143160) 23 mmol/L 23-31 AGAP (test code = 2216248790) 2-16 BUN (test code = 3704276881) 8 mg/dL 7-23 GLUCOSE (test code = 6108162111) 83 mg/dL 70-110 CREATININE (test code = 4226282770) 0.44 mg/dL 0.5-1.04 L CALCIUM (test code = 5068049273) 9.6 mg/dL 8.6-10.6 eGFR Calculation (Non-) (test code = 8009129294) mL/min/1.73m2 eGFR Calculation () (test code = 9667686803) mL/min/1.73m2 SOLEDAD (test code = SOLEDAD) Association of [...] or abnormalities in imaging tests). Lab Interpretation (test code = 66593-0) [facility]normal [facility]2020-07-[facility] 23:25:00* Test Item Value Reference Range Interpretation Comme nts APPEARANCE (test code = 1680401903) Clear Clear COLOR (test code = 8389833197) Yellow Yellow PH (test code = 5702839863) 4.8-8.0 SP GRAVITY (test code = 4635056789) 1.003-1.030 GLU U QUAL (test code = 3394915932) Normal Normal BLOOD (test code = 6647522794) 1+ Negative A KETONES (test code = 4577549771) Negative Negative PROTEIN (test code = 2887-8) Negative Negative UROBILIN (test code = 9668590215) Normal Normal BILIRUBIN (test code = 1491872680) Negative Negative NITRITE (test code = 3949401229) Negative Negative LEUK IRAJ (test code = 3861530938) Negative Negative RBC/HPF (test code = 2271896085) See_Comment [Automated [employer]] The system which generated this result transmitted reference range: 0 - 3 HPF. The reference range was not used to interpret this result as normal/abnormal. WBC/HPF (test code = 5866756662) See_Comment [Automated [employer]] The system which generated this result transmitted reference range: 0 - 5 HPF. The reference range was not used to interpret this result as normal/abnormal. BACTERIA (test code = 9712704114) Negative Negative SQ EPITH (test code = 8367312558) See_Comment [Automated [employer]] The system which generated this result transmitted reference range: <=2 HPF. The reference range was not used to interpret this result as normal/abnormal. Lab Interpretation (test code = 89792-6) [facility] [id number] 18:15:18 Patient: KEKE HAYNES Date/Time03/15/2019 18:02 CDTReason [...] Michael JackSigned (Electronic Signature): 03/15/2019 6:15 pmUrinalysis with Culture, if [id number] 16:19:42* Test Item Value Reference Range Interpretation Comme nts UA Color (test code = UA Color) Yellow Yellow UA Appear (test code = UA Appear) Clear Clear UA pH (test code = UA pH) 6.5 UA Spec Grav (test code = UA Spec Grav) 1.004 SGU 1.005-1.030 L UA Glucose (test code = UA Glucose) Negative Negative UA Bili (test code = UA Bili) Negative Negative UA Ketones (test code = UA Ketones) Negative Negative UA Blood (test code = UA Blood) Trace Negative A UA Protein (test code = UA Protein) Negative Negative UA Urobilinogen (test code = UA Urobilinogen) 0.2 EU/dL >0.2 UA Nitrite (test code = UA Nitrite) Negative Negative UA Leuk Est (test code = UA Leuk Est) Negative Negative UA Micro Ind? (test code = UA Micro Ind?) Indicated Not Indicated A Result created by rule GL_SET_UA_MICRO_IND Urinalysis [id number] 16:19:42* Test Item Value Reference Range Interpretation Comme nts UA WBC (test code = UA WBC) 0-5 /HPF 0-5 UA RBC (test code = UA RBC) 0-4 /HPF 0-4 UA Bacteria (test code = UA Bacteria) Negative /HPF Negative UA Squam Epithelial (test co de = UA Squam Epithelial) 21-73 /LPF 0-20 A [id number] 16:13:11* Test Item Value Reference Range Interpretation Comme nts Amylase Level (test code = Amylase Level) 53 IntlUnit/L 25-115 Comprehensive Metabolic [id number] 16:13:11* Test Item Value Reference Range Interpretation Comme nts Sodium Level (test code = Sodium Level) 142 mmol/L 136-145 Potassium Level (test code = Potassium Level) 4.0 mmol/L 3.5-5.1 Chloride Level (test code = Chloride Level) 109 mmol/L 98-107 H CO2 (test code = CO2) 26 mmol/L 21-32 Anion Gap (test code = Anion Gap) 7 mmol/L 7-16 BUN (test code = BUN) 11 mg/dL 7-18 Creatinine Level (test code = Creatinine Level) 0.5 mg/dL 0.6-1.0 L Glucose Level (test code = Glucose Level) 95 mg/dL 74-106 Calcium Level (test code = Calcium Level) 9.4 mg/dL 8.5-10.1 Alk Phos (test code = Alk Phos) 109 IntlUnit/L 50-136 Bilirubin Total (test code = Bilirubin Total) 0.2 mg/dL 0.2-1.0 Albumin Level (test code = Albumin Level) 4.2 g/dL 3.4-5.0 Protein Total (test code = Protein Total) 7.5 g/dL 6.4-8.2 ALT (test code = ALT) 25 IntlUnit/L 12-78 AST (test code = AST) 20 IntlUnit/L 15-37 Comprehensive Metabolic [id number] 16:13:11* Test Item Value Reference Range Interpretation Comme nts Sodium Level (test code = Sodium Level) 142 mmol/L 136-145 Potassium Level (test code = Potassium Level) 4.0 mmol/L 3.5-5.1 Chloride Level (test code = Chloride Level) 109 mmol/L 98-107 H CO2 (test code = CO2) 26 mmol/L 21-32 Anion Gap (test code = Anion Gap) 7 mmol/L 7-16 BUN (test code = BUN) 11 mg/dL 7-18 Creatinine Level (test code = Creatinine Level) 0.5 mg/dL 0.6-1.0 L Glucose Level (test code = Glucose Level) 95 mg/dL 74-106 Calcium Level (test code = Calcium Level) 9.4 mg/dL 8.5-10.1 Alk Phos (test code = Alk Phos) 109 IntlUnit/L 50-136 Bilirubin Total (test code = Bilirubin Total) 0.2 mg/dL 0.2-1.0 Albumin Level (test code = Albumin Level) 4.2 g/dL 3.4-5.0 Protein Total (test code = Protein Total) 7.5 g/dL 6.4-8.2 ALT (test code = ALT) 25 IntlUnit/L 12-78 AST (test code = AST) 20 IntlUnit/L 15-37 eGFR AA (test code = eGFR AA) >60 mL/min/1.73 m2 N Comprehensive Metabolic [id number] 16:13:11* Test Item Value Reference Range Interpretation Comme nts Sodium Level (test code = Sodium Level) 142 mmol/L 136-145 Potassium Level (test code = Potassium Level) 4.0 mmol/L 3.5-5.1 Chloride Level (test code = Chloride Level) 109 mmol/L 98-107 H CO2 (test code = CO2) 26 mmol/L 21-32 Anion Gap (test code = Anion Gap) 7 mmol/L 7-16 BUN (test code = BUN) 11 mg/dL 7-18 Creatinine Level (test code = Creatinine Level) 0.5 mg/dL 0.6-1.0 L Glucose Level (test code = Glucose Level) 95 mg/dL 74-106 Calcium Level (test code = Calcium Level) 9.4 mg/dL 8.5-10.1 Alk Phos (test code = Alk Phos) 109 IntlUnit/L 50-136 Bilirubin Total (test code = Bilirubin Total) 0.2 mg/dL 0.2-1.0 Albumin Level (test code = Albumin Level) 4.2 g/dL 3.4-5.0 Protein Total (test code = Protein Total) 7.5 g/dL 6.4-8.2 ALT (test code = ALT) 25 IntlUnit/L 12-78 AST (test code = AST) 20 IntlUnit/L 15-37 eGFR AA (test code = eGFR AA) >60 mL/min/1.73 m2 N eGFR Non-AA (test code = eGFR Non-AA) >60 mL/min/1.73 m2 N Automated [id number] 16:12:15* Test Item Value Reference Range Interpretation Comme nts Neutro Auto (test code = Neutro Auto) 55.4 % N Lymph Auto (test code = Lymph Auto) 36.3 % N Divide Auto (test code = Divide Auto) 5.5 % N Eos, Auto (test code = Eos, Auto) 1.9 % N Basophil Auto (test code = B asophil Auto) 0.9 % N Neutro Absolute (test code = Neutro Absolute) 4.9 x10 2.7-7.3 Lymph Absolute (test code = Lymph Absolute) 3.2 x10 0.8-3.5 Divide Absolute (test code = M nancy Absolute) 0.5 x10 0.3-0.9 Eos Absolute (test code = Eo s Absolute) 0.2 x10 0.0-0.3 Baso Absolute (test code = B aso Absolute) 0.1 x10 0.0-0.1 Complete Blood Count with [id number] 16:12:14* Test Item Value Reference Range Interpretation Comme nts WBC (test code = WBC) 8.8 x10 [...] 31.0 pg 26.0-32.0 Platelets (test code = Platelets) 342 x10 140-440 MPV (test code = MPV) 6.8 fL 7.5-11.2 L Slide Review (test code = Slide Review) Auto N Result created b y GL_SET_SLIDE_REVIEW_A NYO Comprehensive Metabolic [id number] 14:21:14* Test Item Value Reference Range Interpretation Comme nts Sodium Level (test code = Sodium Level) 138 mmol/L 136-145 Potassium Level (test code = Potassium Level) 4.3 mmol/L 3.5-5.1 Chloride Level (test code = Chloride Level) 105 mmol/L 98-107 CO2 (test code = CO2) 27 mmol/L 21-32 Anion Gap (test code = Anion Gap) 6 mmol/L 7-16 L BUN (test code = BUN) 6 mg/dL 7-18 L Creatinine Level (test code = Creatinine Level) 0.6 mg/dL 0.6-1.0 Glucose Level (test code = Glucose Level) 114 mg/dL 74-106 H Calcium Level (test code = Calcium Level) 9.4 mg/dL 8.5-10.1 Alk Phos (test code = Alk Phos) 125 IntlUnit/L 50-136 Bilirubin Total (test code = Bilirubin Total) 0.4 mg/dL 0.2-1.0 Albumin Level (test code = Albumin Level) 4.1 g/dL 3.4-5.0 Protein Total (test code = Protein Total) 7.5 g/dL 6.4-8.2 ALT (test code = ALT) 31 IntlUnit/L 12-78 AST (test code = AST) 22 IntlUnit/L 15-37 Comprehensive Metabolic [id number] 14:21:14* Test Item Value Reference Range Interpretation Comme nts Sodium Level (test code = Sodium Level) 138 mmol/L 136-145 Potassium Level (test code = Potassium Level) 4.3 mmol/L 3.5-5.1 Chloride Level (test code = Chloride Level) 105 mmol/L 98-107 CO2 (test code = CO2) 27 mmol/L 21-32 Anion Gap (test code = Anion Gap) 6 mmol/L 7-16 L BUN (test code = BUN) 6 mg/dL 7-18 L Creatinine Level (test code = Creatinine Level) 0.6 mg/dL 0.6-1.0 Glucose Level (test code = Glucose Level) 114 mg/dL 74-106 H Calcium Level (test code = Calcium Level) 9.4 mg/dL 8.5-10.1 Alk Phos (test code = Alk Phos) 125 IntlUnit/L 50-136 Bilirubin Total (test code = Bilirubin Total) 0.4 mg/dL 0.2-1.0 Albumin Level (test code = Albumin Level) 4.1 g/dL 3.4-5.0 Protein Total (test code = Protein Total) 7.5 g/dL 6.4-8.2 ALT (test code = ALT) 31 IntlUnit/L 12-78 AST (test code = AST) 22 IntlUnit/L 15-37 eGFR AA (test code = eGFR AA) >60 mL/min/1.73 m2 N Comprehensive Metabolic [id number] 14:21:14* Test Item Value Reference Range Interpretation Comme nts Sodium Level (test code = Sodium Level) 138 mmol/L 136-145 Potassium Level (test code = Potassium Level) 4.3 mmol/L 3.5-5.1 Chloride Level (test code = Chloride Level) 105 mmol/L 98-107 CO2 (test code = CO2) 27 mmol/L 21-32 Anion Gap (test code = Anion Gap) 6 mmol/L 7-16 L BUN (test code = BUN) 6 mg/dL 7-18 L Creatinine Level (test code = Creatinine Level) 0.6 mg/dL 0.6-1.0 Glucose Level (test code = Glucose Level) 114 mg/dL 74-106 H Calcium Level (test code = Calcium Level) 9.4 mg/dL 8.5-10.1 Alk Phos (test code = Alk Phos) 125 IntlUnit/L 50-136 Bilirubin Total (test code = Bilirubin Total) 0.4 mg/dL 0.2-1.0 Albumin Level (test code = Albumin Level) 4.1 g/dL 3.4-5.0 Protein Total (test code = Protein Total) 7.5 g/dL 6.4-8.2 ALT (test code = ALT) 31 IntlUnit/L 12-78 AST (test code = AST) 22 IntlUnit/L 15-37 eGFR AA (test code = eGFR AA) >60 mL/min/1.73 m2 N eGFR Non-AA (test code = eGFR Non-AA) >60 mL/min/1.73 m2 N Pro B Natriuretic [id number] 14:05:15* Test Item Value Reference Range Interpretation Comme nts NT-proBNP (test code = NT-proBNP) 6 pg/mL 0-125 < 300 pg/ml - he art failure unlikelyAge less than 50 years, > 450 pg/ml - heart failure lilkelyAge 50 - 75 years, > 900 pg/ml - heart failure likelyAge greater than 75 years, > 1800 pg/ml - heart failure likely Complete Blood Count with [id number] 13:59:12* Test Item Value Reference Range Interpretation Comme nts WBC (test code = WBC) 12.0 x10 [...] 30.1 pg 26.0-32.0 Platelets (test code = Platelets) 470 x10 140-440 H MPV (test code = MPV) 6.2 fL 7.5-11.2 L Slide Review (test code = Slide Review) Auto N Result created b y GL_SET_SLIDE_REVIEW_A [employer] Automated [id number] 13:59:12* Test Item Value Reference Range Interpretation Comme nts Neutro Auto (test code = Neutro Auto) 68.5 % N Lymph Auto (test code = Lymph Auto) 24.5 % N Divide Auto (test code = Divide Auto) 5.6 % N Eos, Auto (test code = Eos, Auto) 1.0 % N Basophil Auto (test code = B asophil Auto) 0.4 % N Neutro Absolute (test code = Neutro Absolute) 8.2 x10 2.7-7.3 H Lymph Absolute (test code = Lymph Absolute) 2.9 x10 0.8-3.5 Divide Absolute (test code = M nancy Absolute) 0.7 x10 0.3-0.9 Eos Absolute (test code = Eo s Absolute) 0.1 x10 0.0-0.3 Baso Absolute (test code = B aso Absolute) 0.0 x10 0.0-0.1 XR Chest 2 [id number] 13:41:47Patient: KEKE HAYNES Date/Time02/24/2019 13:18 CDTReason for ExamShortness of breathReportInformation: Dyspnea, chest pain, cough and hypertensionChest 2 viewsIn comparison to prior chest x-ray dated 10/06/2018 there is bilateral pulmonary hyperexpansion. The heart and mediastinum are normal. Pulmonary vascularity is unremarkable. Small scattered healed fibrocalcific deposits are identified.IMPRESSION:1. Pulmonary hyperexpansion consistent with COPD2. Sequela of old granulomatous disease. Final Dictated by: MD Webster Gustavo MDictjacob DT/TM: 02/24/2019 1:40 pmSigned by: MD Webster Gustavo MSigned (Electronic Signature): 02/24/2019 1:41 pmXR Chest 2 [id number] 10:31:38Patient: KEKE HAYNES Date/Time10/06/2018 10:23 CDTReason for ExamCoughReportXR CHEST 2 VIEWSDIAGNOSIS: Cough and chest painThe heart, lungs and bony thorax are unremarkable and u nchanged since 09/22/2018. Hyperinflation suggesting early COPD.IMPRESSION: No active disease and no change since 12/07/2018. Final Dictated by: MD Denton Michael JackDictated DT/TM: 10/06/2018 10:30 amSigned by: MD Denton Michael JackSigned (Electronic Signature): 10/06/2018 10:31 amXR Chest 2 [id number] 14:38:49Patient: KEKE HAYNES Date/Time09/22/2018 14:05 CSTReason for ExamRespiratory distressReportCHEST 2 VIEWS:HISTORY: Respiratory distress, fever, shortness of breathCOMPARISON: 018The cardiomediastinal silhouette shows no significant abnormality.No pleural fluid or pulmonary infiltrates are identified.The bony architecture appears intact, where adequately seen.IMPRESSION:Noactive cardiopulmonary process is identified. Final Dictated by: MD Azevedo Ramon JulioDictated DT/TM: 09/22/2018 2:38 pmSigned by: MD Azevedo Ramon JulioSigned (Electronic Signature): 09/22/2018 2:38 pmXR Ankle Complete 3+ Views [id number] 07:53:52Patient: KEKE HAYNES Date/Time09/04/2018 22:40 CSTReason for [...] right ankle. Final Dictated by: MD Cruz, SameEzekielictjacob DT/TM: 09/05/2018 7:49 amSigned by: MD Arroyo SamerSigned (Electronic Signature): 09/05/2018 7:53 amXR Foot Complete 3+ Views [id number] 07:53:39Patient: KEKE HAYNES Date/Time09/04/2018 22:40 CSTReason for ExamInjuryReportEXAMINATION: Left foot 3 viewsTECHNIQUE: AP, lateral, and oblique views of the left foot were performed.COMPARISON: Left foot x-rays 01/05/2008INDICATION: Fall with posttraumatic left foot painFINDINGS:No acute fracture-dislocation. No osseous erosions or periosteal reaction. Mild degenerative changes of the midfoot. No radiopaque foreign bodies. Soft tissues are grossly unremarkable.IMPRESSION:Noacute osseous abnormalities of the left foot. Final Dictated by: MD Cruz, Gene DT/TM: 09/05/2018 7:52 amSigned by: MD Arroyo SamerSigned (Electronic Signature): 09/05/2018 7:53 amCT Abdomen and Pelvis w/o [id number] 14:15:18Patient: KEKE HAYNES Date/Time07/09/2018 13:45 CSTReason for Examhematuria, RLQ pain;HematuriaReportREASON FOR STUDY: Hematuria;hematuria, RLQ painCT ABDOMEN AND CT PELVIS WITHOUT CONTRAST:Radiation dose lowering techniques were used with automated exposure control, adjustingthe mA according to patient's size.Multiple transverse images [...] is evidence of prior cholecystectomy.Surgical clip noted alongthe anterior upper pelvis. The spleen has a normal appearance. The pancreas is unremarkable.Common duct measures 7 mm without definite intrahepatic duct dilatation.No abnormalities are demonstrated in the kidneys. No hydronephrosis is observed.No enlarged lymph nodes are seen in the retroperitoneumor the pelvis. There are a few diverticula involving the left colon without signs of diverticulitis.IMPRESSION:4 mm right lower lobe nodule. Small additional area of focal scarring left lung base with a few small bulla present. Recommend follow-up CT chest 6-8 months.Status post cholecystectomy with no intrahepatic duct dilatation.Nonobstructive bowel pattern with a few noncomplicated left colonic diverticula. Final Dictated by: MD Leary Craig ADictated DT/TM: 07/09/2018 2:02 pmSigned by: MD Leary Craig ASigned (Electronic Signature): 07/09/2018 2:15 [id number] 18:24:00 * Test Item Value Reference Range Interpretation Comme nts GLUCOSE (test code = URGLU) NEGATIVE MG/DL [...] BACTERIA (test code = BACTERIA) NEGATIVE NONE [id number] 18:16:00* Test Item Value Reference Range Interpretation Comme nts SODIUM (test code = NA) 143 MMOL/L 137-145 K+ (test code = KSERUM) 3.4 MMOL/L 3.5-5.1 L PLEASE NOTE NEW REFERENCE RANGE(S) IN EFFECT EFFECTIVE 02/22/2010 - NEW ANALYZER ([employer]) CHLORIDE (test code = CL) 108 MMOL/L 98-107 H CO2 (test code = CO2) 30 MMOL/L 22-30 BUN (test code = BUN) 9 MG/DL 7-17 CREA (test code = CREA) 0.5 MG/DL 0.7-1.2 L GLUCOSE (test code = GLUCOSE) 98 MG/DL 70-99 Fasting glucos e normal <100 MG/DL- [employer] recommendation CALCIUM (test code = CABLOOD) 9.7 MG/DL 8.4-10.2 TOTPROT (test code = TOTPROT) 7.2 G/DL 6.3-8.2 ALBUMIN (test code = ALBSERUM) 4.5 G/DL 3.5-5.0 BILITOT (test code = BILITOT) 0.3 MG/DL 0.2-1.3 AST (test code = AST) 27 U/L 15-46 PHOSALK (test code = PHOSALK) 80 U/L 38-126 ALT (test code = ALT) 33 U/L 13-69 GFR (test code = GFR) 137 mL/min/1.73m2 A GFR of >90 mL/min/1.73m2 is considered normal. [id number] 18:16:00* Test Item Value Reference Range Interpretation Comme nts LIPASE (test code = LIPA) 95 U/L 23-300 [id number] 18:07:00* Test Item Value Reference Range Interpretation Comme nts WBC (test code = WBC) 6.9 K/UL [...] 8.8 FL 7.4-10.4 MANDIFF (test code = MANDIFF) NO SCAN (test code = SCAN) NO NEUT% [...] = IG%) 0.1 % 0-1 IG% = Metamyeloc ytes, Myelocytes, and Promyelocytes. (Immature neutrophils not including "bands".) > 3% IG indicates risk of sepsis NRBC% (test code = NRBC%) 0 /100 WBC ABS NEUT (test code = NEUT) 3.5 K/UL 1.2-7.2 OCCULT BLOOD, [id number] 06:35:00* Test Item Value Reference Range Interpretation Comme nts OCCULT BLOOD FECES (test cod e = OCCBLFEC) NEGATIVE NEGATIVE LOT# CRD (test code = LOT# CRD) 23778 EXP CRD (test code = EXP CRD) 10-20 LOT# DVL (test code = LOT# DVL) 86253 EXP DVL (test code = EXP DVL) 7-21 INT QC (test code = INT QC) PASSED [id number] 00:14:00* Test Item Value Reference Range Interpretation Comme nts SODIUM (test code = NA) 143 MMOL/L 137-145 K+ (test code = KSERUM) 4.5 MMOL/L 3.5-5.1 PLEASE NOTE NEW REFERENCE RANGE(S) IN EFFECT EFFECTIVE 02/22/2010 - NEW ANALYZER ([employer]) CHLORIDE (test code = CL) 108 MMOL/L 98-107 H CO2 (test code = CO2) 24 MMOL/L 22-30 BUN (test code = BUN) 12 MG/DL 7-17 CREA (test code = CREA) 0.6 MG/DL 0.7-1.2 L GLUCOSE (test code = GLUCOSE) 95 MG/DL 70-99 Fasting glucos e normal <100 MG/DL- [employer] recommendation CALCIUM (test code = CABLOOD) 9.8 MG/DL 8.4-10.2 TOTPROT (test code = TOTPROT) 6.8 G/DL 6.3-8.2 ALBUMIN (test code = ALBSERUM) 4.2 G/DL 3.5-5.0 BILITOT (test code = BILITOT) 0.2 MG/DL 0.2-1.3 AST (test code = AST) 23 U/L 15-46 PHOSALK (test code = PHOSALK) 87 U/L 38-126 ALT (test code = ALT) 61 U/L 13-69 GFR (test code = GFR) 111 mL/min/1.73m2 A GFR of >90 mL/min/1.73m2 is considered normal. [id number] 00:14:00* Test Item Value Reference Range Interpretation Comme nts LIPASE (test code = LIPA) 134 U/L 23-300 ABDOMEN 2 [id number] 21:18:[address] [id number] IMAGING REPORTPatient Name: CARVER, SHELLYDate of Service: [id number]: 52 Sex: F Order #: [id number] [facility] Number: [id number] Record Number: [id number] Hospital Number: [id number] Physician: YANNA GUTIERREZOrdering Physician: Mallika MAY.History: Abdomen pain.Technique: 3 supine and upright abdominal projections were obtained andreviewed.Findings:There is no specific acute appearing abdominal abnormality.There is no evidence to suggest obstruction or free air.The osseousstructures appear intact. There is rotatory dextroscoliosis ofthe lumbar spine.Impression:No specific acute appearing abdominal abnormalities.Electronically Signed By: Hao Cole M.D., 04/04/2018 9:16 PMLegally authenticated by CLARA Talley 2018-04-04 21:16:[id number] 17:07:00* Test Item Value Reference Range Interpretation Comme nts WBC (test code = WBC) 10.3 K/UL 3.5-10.9 RBC (test code = RBC) 3.62 M/UL 4.0-5.0 L HGB (test code = HGB) 11.5 G/DL 11.5-15.5 HCT (test code = HCT) 33.6 % 34-46 L MCV (test code = MCV) 92.8 FL 80-98 MCH (test code = MCH) 31.8 PG 28-32 MCHC (test code = MCHC) 34.2 G/DL 32.5-36.5 RDW (test code = RDW) 14.1 % 11.5-14.5 PLT (test code = PLT) 663 K/UL 150-450 H MPV (test code = MPV) 8.1 FL 7.4-10.4 MANDIFF (test code = MANDIFF) NO SCAN (test code = SCAN) NO NEUT% [...] = IG%) 0.7 % 0-1 IG% = Metamyeloc ytes, Myelocytes, and Promyelocytes. (Immature neutrophils not including "bands".) > 3% IG indicates risk of sepsis NRBC% (test code = NRBC%) 0 /100 WBC ABS NEUT (test code = NEUT) 5.6 K/UL 1.2-7.2 [id number] 17:06:00* Test Item Value Reference Range Interpretation Comme nts GLUCOSE (test code = URGLU) NEGATIVE MG/DL [...] (test code = UAMICRO) NO CT ABDOMEN/PELVIS [id number] 16:28:[address] [id number] IMAGING REPORTPatient Name: Amaris HAYNES of Service: [id number]: 52 Sex: F Order #: [id number] [facility] 1965 [facility] Number: [id number] Record Number: [id number] Hospital Number: [id number] Physician: YANNA GUTIERREZOrdering Physician: DANETTE CLARK ABDOMEN/PELVIS WITH 04/01/2018 3:52 PMHistory: Abd pain without fever, nausea, vomiting, Crohn's diseaseComparisons: 01/26/2016This CT exam wasperformed using one or more of the following dosereduction techniques: Automated exposure control, adjustment of the MAand/or KV according to patient size or use of iterative reconstructiontechnique.IV and oral contrast was administered for the procedure.FINDINGS:There is diffuse mucosal thickeningof the distal descending colon andsigmoid colon, likely [...] 4:25 PMLegally authenticated by GEORGIA WISEMAN 2018-04-01 16:25:[id number] 14:29:00* Test Item Value Reference Range Interpretation Comme nts BLOOD TYPE (test code = TYPE) O Rh Positive ANTIBODY SCREEN (test code = SCREEN) NEGATIVE NEGATIVE PROTHROMBIN TIME WITH [id number] 14:13:00* Test Item Value Reference Range Interpretation Comme nts PROTHROMBIN TIME (test code = PT) 12.5 SECONDS 12.0-14.6 INR Usual Range = 2 to 3 for prevention of deep vein thrombosis (DVT) INR (test code = INR) 0.9 [id number] 14:13:00* Test Item Value Reference Range Interpretation Comme nts PTT (test code = PTT) 37.8 SECONDS 24.4-36.3 H HEPARIN THERAPEU TIC RANGE 57-92 SECONDS [id number] 14:00:00* Test Item Value Reference Range Interpretation Comme nts SODIUM (test code = NA) 140 MMOL/L 137-145 K+ (test code = KSERUM) 4.3 MMOL/L 3.5-5.1 PLEASE NOTE NEW REFERENCE RANGE(S) IN EFFECT EFFECTIVE 02/22/2010 - NEW ANALYZER ([employer]) CHLORIDE (test code = CL) 103 MMOL/L 98-107 CO2 (test code = CO2) 29 MMOL/L 22-30 BUN (test code = BUN) 7 MG/DL 7-17 CREA (test code = CREA) 0.5 MG/DL 0.7-1.2 L GLUCOSE (test code = GLUCOSE) 100 MG/DL 70-99 H Fasting glucos e normal <100 MG/DL- [employer] recommendation CALCIUM (test code = CABLOOD) 9.5 MG/DL 8.4-10.2 TOTPROT (test code = TOTPROT) 6.6 G/DL 6.3-8.2 ALBUMIN (test code = ALBSERUM) 4.1 G/DL 3.5-5.0 BILITOT (test code = BILITOT) 0.4 MG/DL 0.2-1.3 AST (test code = AST) 72 U/L 15-46 H PHOSALK (test code = PHOSALK) 117 U/L 38-126 ALT (test code = ALT) 139 U/L 13-69 H GFR (test code = GFR) 137 mL/min/1.73m2 A GFR of >90 mL/min/1.73m2 is considered normal. [id number] 14:00:00* Test Item Value Reference Range Interpretation Comme nts LIPASE (test code = LIPA) 40 U/L 23-300 [id number] 13:51:00* Test Item Value Reference Range Interpretation Comme nts WBC (test code = WBC) 12.5 K/UL 3.5-10.9 H RBC (test code = RBC) 3.40 M/UL 4.0-5.0 L HGB (test code = HGB) 10.5 G/DL 11.5-15.5 L HCT (test code = HCT) 31.8 % 34-46 L MCV (test code = MCV) 93.5 FL 80-98 MCH (test code = MCH) 30.9 PG 28-32 MCHC (test code = MCHC) 33.0 G/DL 32.5-36.5 RDW (test code = RDW) 13.8 % 11.5-14.5 PLT (test code = PLT) 441 K/UL 150-450 MPV (test code = MPV) 8.5 FL 7.4-10.4 MANDIFF (test code = MANDIFF) NO SCAN (test code = SCAN) NO NEUT% (test code = NEUT%) 70.7 % 40-75 LYMPH% (test code = LYMPH%) 21.5 % 24-44 L MONO% (test code = MONO%) 4.7 % 0-13 EOS% (test code = EOS%) 2.3 % 0-4 BASO % (test code = BASO%) 0.2 % 0-2 IG (test code = IG) 0 % 0-1 IG% (test code = IG%) 0.6 % 0-1 IG% = Metamyeloc ytes, Myelocytes, and Promyelocytes. (Immature neutrophils not including "bands".) > 3% IG indicates risk of sepsis ABS NEUT (test code = NEUT) 8.8 K/UL 1.2-7.2 H [id number] 13:22:00* Test Item Value Reference Range Interpretation Comme nts GLUCOSE (test code = URGLU) NEGATIVE MG/DL [...] (test code = UAMICRO) NO SPINE LUMBAR [id number] 13:32:[address] [id number] IMAGING REPORTPatient Name: Amaris HAYNES of Service: [id number]: 51 Sex: F Order #: [id number] Room: [facility]: 10-31 X-Ray Number: [id number] Record Number: [id number] Hospital Number: [id number] Physician: MICHELLE YEOrdering Physician: LAURENCE HONG SPINE 5 VIEWS:CLINICAL HISTORY: Back pain radiates into both legs and [...] 1:29 PMLegally authenticated by JENNIFER Daniels 2017-10-16 13:29:[id number] 12:33:00* Test Item Value Reference Range Interpretation Comme nts GLUCOSE (test code = URGLU) NEGATIVE MG/DL [...] BACTERIA (test code = BACTERIA) NEGATIVE NONE [id number]& [id number] 06:46:50CHEST 2 VIEWREASON FOR STUDY: [id number]:The heart and mediastinum are within normal limits. Minor linearscarring or atelectasis is noted involving the right infrahilar region.Lungs appear slightly hyperinflated. Bony structures appear intact. . No other significant findings. IMPRESSION: Minor linear scarring or atelectasis involving the right infrahilarregion. Chest is otherwise clear. Notes Date/Time Note Provider Source 2021-05-11 18:11:00 [id number]:11:00 [facility])EMERGENCY PROVIDER REPORTREPORT#:[id number] REPORT STATUS: SignedDATE:05/11/21 TIME:1810 PATIENT: KEKE HAYNES UNIT #: [id number]#: [id number] ROOM/BED:: 63 AGE: 55 SEX: F PCP PHYS: Heron AndersonERVBENJI AUTHOR: Federico Qureshi DO * ALL edits or amendments must be made on the electronic/computer document * Federico Qureshi 05/11/211810:HPI-Abd Pain F 40 and Over GeneralConfirmed Patient YesInitial Greet Date/Time 05/11/21 8265 PresentationChief Complaint Abdominal painHx Obtained From PatientSudden in Onset? NoOnset Occurred YesterdaySymptom Duration Since onsetProgression since Onset Gradually worseningCaused by No trauma by historyLocation DiffuseQuality BurningRadiationDoes not radiate. Migration/Movement NoneSeverity: Onset MildSeverity: Current ModerateAssociated withReports: Back pain, Nausea. Denies: Chest pain, Chills, Constipation, Diarrhea,Dysuria, Fever, Hematemesis, Hematochezia, Hematuria, Melena, Shortness of breath, Urinary frequency, Urinary retention, Urinary tract symptoms, Vaginal bleeding, Vaginal discharge, Vomiting. Exacerbated by PalpationRelieved by Nothing Free Text HPI NotesFree Text HPI NotesPatient had a colonoscopy performed yesterday. States after she developed left-sided back pain but today has developed diffuse abdominal pain and distention. Risk-Abd Pain F 40 and Over)( Abdominal Aortic Aneurysm Risk factors reviewed Review of Systems ROS StatementsComplete sys rev neg except as marked. Focused Review of SystemsConstitutionalDenies: Chills, Fever, Lethargy. RespiratoryDenies: Cough, non-productive, Cough, productive, Shortness of breath. CardiovascularDenies: Chest pain, Syncope. GIReports: Abdominal pain, Nausea. Denies: Constipation, Diarrhea, Vomiting. FemaleDenies: Dysuria, Flank pain, Pelvic pain. MusculoskeletalReports: Lumbar pain. Denies: Extremity pain, Neck pain, Thoracic pain. Past Medical History - AdultStated Complaint POST PROCEDURE-DR SENT PATIENT TO [facility] Nursing Notes Rev avail, and agree Physical Exam Vital SignsVital SignsFirst Documented: Result Date Time Pulse Ox 100 05/11 1808 B/P 197/95 05/11 1808 B/P Mean 129 05/11 1808 O2 Delivery Room air 05/11 1808 Temp 97.9 05/11 1808 Pulse 100 05/11 1808 Resp 16 05/11 1808 Last Documented: Result Date Time Pulse Ox 99 05/11 2140 B/P 132/68 05/11 2140 B/P Mean 89 05/11 2140 O2 Delivery Room air 05/11 2140 Temp 98.0 05/11 2140 Pulse 75 05/11 2140 Resp 18 05/11 2140 Review of Vital Signs Reviewed Focused PEGeneral/Const General/Const Awake, AlertMS Head Head NormocephalicEyes Eyes PERRLEars/Nose/Throat Ears/Nose/Throat Airway patent, Mucous membranes moist, Pharynx NLResp/Chest Respiratory/Chest Breath sounds NL, Breath sounds = bilat, No respiratory distress, No rales, No rhonchi, No wheezingCardiovascular Cardiovascular Heart rate NL, Regular rhythm, Heart sounds NL, Peripheral circulation NLAbdomen/GI Abdomen/GI McBurney's non-tender, No guarding, No rebound, BS normoactive, Nohernia, No palpable mass, No pulsatile mass Tenderness/Guarding/Rebound Tender diffuse. Bowel Sounds/Distention Distention moderate. MS Back Back Inspection NL, Non-tender, No CVA tendernessSkin Skin Color NL, Warm, Dry, Turgor NLNeurologic Neurologic Oriented X3, Speech NL, No motor deficits, No sensory deficits Additional PEMS Upper Extrem Upper Extremity/MS Atraumatic, Inspection NL Interpretation Diagnostics Lab Results InterpretationResultsLaboratory Tests 05/11/211818:[Embedded Image Not Available]Laboratory Tests: 05/116 1819 Chemistry Sodium (134 - 147 mmol/L) 138 Potassium (3.4 - 5.0 mmol/L) 3.7 Chloride (100 - 108 mmol/L) 104 Carbon Dioxide (21 - 32 mmol/L) 26 Anion Gap (4.0 - 15.0 GAP calc) 8.0 BUN (7 - 18 MG/DL) 9 Creatinine (0.6 - 1.0 MG/DL) 0.6 Glomerular Filtr Rate (>60 estGFR) >=60 max estimate Glucose (70 - 110 MG/DL) 102 Calcium (8.5 - 10.1 MG/DL) 9.5 Total Bilirubin (0.2 - 1.2 MG/DL) 0.40 Direct Bilirubin (0.00 - 0.30 MG/DL) < 0.10 Indirect Bilirubin (0.2 - 1.2 MG/DL) 0.30 AST (15 - 37 Unit/L) 29 ALT (12 - 78 Unit/L) 52 Total Alk Phosphatase (45 - 117 Unit/L) 108 Total Protein (6.4 - 8.2 G/DL) 7.9 Albumin (3.4 - 5.0 G/DL) 4.1 Lipase (114 - 286 Unit/L) 73 L Hematology WBC (3.5 - 11.0 K/mm3) 6.6 RBC (4.70 - 6.10 M/mm3) 4.27 L Hgb (10.4 - 14.9 G/DL) 12.9 Hct (31.5 - 44.1 %) 39.5 MCV (84.5 - 98.6 Fl) 92.5 MCH (27.0 - 34.2 pg) 30.2 MCHC (31.5 - 34.0 G/DL) 32.7 RDW (11.5 - 14.5 SD) 12.7 Plt Count (150 - 450 K/mm3) 344 MPV (7.0 - 10.5 fL) 8.30 Neut % (Auto) (40 - 76 %) 52.6 Lymph % (Auto) (20.5 - 51.1 %) 36.7 Divide % (Auto) (1.7 - 9.3 %) 7.2 Eos % (Auto) (0.0 - 6.0 %) 3.0 Baso % (Auto) (0.0 - 2.0 %) 0.3 Neut # (Auto) (1.8 - 7.6 K/mm3) 3.5 Lymph # (Auto) (0.6 - 3.2 K/mm3) 2.4 Divide # (Auto) (0.3 - 1.1 K/mm3) 0.5 Eos # (Auto) (0.0 - 0.4 K/mm3) 0.2 Baso # (Auto) (0.0 - 0.1 K/mm3) 0.0 Abs Immat Gran (auto) (0.00 - 0.03 x10 3/uL) 0.01 Add Manual Diff (CRITERIA DIFF/SCN) NO Immature Gran % (0.0 - 5.0 %) 0.2 Nucleated RBC % (0.0 - 1.0 /100WBC%) 0.0 Urines Urine Color (YEL/STRAW discript) YELLOW Urine Appearance (CLEAR discript) CLEAR Urine pH (5.0 - 7.0 pH UNITS) 6.0 Ur Specific [place] (1.005 - 1.030 SG) <=1.005 Urine Protein (NEG mg/dL) NEGATIVE Urine Glucose (UA) (NEG mg/dL) NEGATIVE Urine Ketones (NEG mg/dL) NEGATIVE Urine Blood (NEG mg/DL) 1+ H Urine Nitrite (NEG SCREEN) NEGATIVE Urine Bilirubin (NEG mg/dL) NEGATIVE Urine Urobilinogen (<2.0 mg/dL) 0.2 Ur Leukocyte Esterase (NEGATIVE Leuk/mcL) NEGATIVE Urine RBC (0 - 3 #RBC/HPF) NONE SEEN Urine WBC (0 - 3 #WBC/HPF) NONE SEEN Urine Bacteria (NONE - TRACE /HPF) TRACE Urine Culture Screen (Culture CHK Criteria) NO, WBC<10 Recent Impressions:CAT SCAN - CT ABD PELVIS W/CONT 05/11 2020 Report Impression - Status: SIGNED Entered: 05/11/20212047 IMPRESSION: No evidence of bowel perforation or other acute abnormalityDilated common bile duct and intrahepatic biliary system. In theabsence of abnormal laboratory values, findings may be related toreservoir effect secondary to the patient's cholecystectomy statusImpression By: DaniellaAGDestinee Olmedo M.D. Re-Evaluation MDM ED CourseMedication(s) OrderedMedication(s) Ordered:Central Nervous System Agents Sig/Davis Start time Last Medication Dose Route Stop Time Status Admin Morphine Sulfate 4 MG X1ED STA 05/11 1810 DC 05/11 IV 05/11 1811 182 Diagnostic Agents Sig/Davis Start time Last Medication Dose Route Stop Time Status Admin Iopamidol 0 .STK-MED ONE 05/11 2010 DC 05/11 IV 2030 Electrolytic, Caloric, And Nalini Sig/Davis Start time Last Medication Dose Route Stop Time Status Admin Sodium Chloride 50 ML .STK-MED ONE 05/11 2010 DC 05/11 IV 2030 Sodium Chloride 1,000 ML X1ED STA 05/11 1810 DC 05/11 IV 05/11 190 1822 Gastrointestinal Drugs Sig/Davis Start time Last Medication Dose Route Stop Time Status Admin Ondansetron HCl 4 MG X1ED STA 05/11 1811 DC 05/11 IV 05/11 1812 182 Patient Discharge Departure Vital Signs/ConditionVital SignsFirst Documented: Result Date Time Pulse Ox 100 05/11 1808 B/P 197/95 05/11 1808 B/P Mean 129 05/11 1808 O2 Delivery Room air 05/11 1808 Temp 97.9 05/11 1808 Pulse 100 05/11 180 Resp 16 05/11 1808 Last Documented: Result Date Time Pulse Ox 99 05/11 2140 B/P 132/68 05/11 2140 B/P Mean 89 05/11 2140 O2 Delivery Room air 05/11 2140 Temp 98.0 05/11 2140 Pulse 75 05/11 2140 Resp 18 05/11 2140 All vital signs available at the time of this entry have been reviewed. Pt/Provider HandoffCare [facility] Transferred at [address] Gallo 05/11/212123:Past Medical History - AdultAllergiesCoded Allergies:sucralfate (Rash 05/11/21) Home MedicationsReported MedicationstraZODone (DESYREL) 50 MG PO DAILY metroNIDAZOLE (FLAGYL) 500 MG PO BID levoFLOXacin (LEVAQUIN) 500 MG PO DAILY Interpretation Diagnostics Lab Results Interpretation Lab Imaging StatementLaboratory radiographic studies reviewed and considered in the medical decision-making. Re-Evaluation MDM )( Re-Evaluation/Progress #1)( Re-Eval Status ImprovedPlan Post Re-Eval Plan discharge Abd Pain MDM Note F > 40The patient is resting comfortably and feels better, is alert and in no distress. The repeat examination is unremarkable and benign; in particular, there is no discomfort at McBurney's point and there is no pulsatile mass. The history, exam, diagnostic testing, and current condition do not suggest acute appendicitis, bowel obstruction, acute cholecystitis, bowel perforation, major gastrointestinal bleeding, severe diverticulitis, abdominal aortic aneurysm, mesenteric ischemia, volvulus, sepsis, or other significant pathology to warrantfurther testing, continued ED treatment, admission, or surgical evaluation at this point. The vital signs have been stable. The patient does not have uncontrollable pain, intractable vomiting, or other significant symptoms. The patient's condition is stable and appropriate for discharge from the emergency department. The patient will pursue further outpatient evaluation with the primary care physician or other designated or consulting physician as indicated in the discharge instructions. ConsultationConsultation Referral/Consult Name Rico Foley DO Ride Assembly Supervisor Called Gastroenterology Requested Call Time 2123 Requested Call Date 05/11/21 Call Returned Call returned Call Returned Time 2123 Call Returned Date 05/11/21 Ride Assembly Supervisor Will see in office Patient Discharge Departure Clinical ImpressionClinical ImpressionPrimary Impression: Abdominal painSecondary Impressions: S/P colonoscopy Disposition DecisionDischarge )( Discharged to Home Yes )( Time 2124 )( Date 05/11/21 Discharge/Care PlanCounseled Regarding Diagnosis, Lab results, Imaging studies, Prescriptions, Needfor follow-up, When to return to ED(Auto) PrescriptionsCurrent Visit ScriptsDICYCLOMINE (BENTYL) 20 MG PO QID DICYCLOMINE (BENTYL) 20 MG PO QID #30 TABS ONDANSETRON ODT (ZOFRAN ODT) 4 MG PO Q6H PRN PRN NAUSEA/VOMITING ONDANSETRON ODT (ZOFRAN ODT) 4 MG PO Q6H PRN PRN NAUSEA/VOMITING #15 TABS Patient Instructions ED Abdominal Pain Unknown ...ReferralsSiRico casey DO Discharge NoteI have spoken with the patient and/or caregivers. I have explained the patient'scondition, diagnoses and treatment plan based on the information available to meat this time. I have answered the patient's and/or caregiver's questions and addressed any concerns. The patient and/or caregivers have as good an understanding of the patient's diagnosis, condition and treatment plan as can beexpected at this point. The vital signs have been stable. The patient's condition is stable and appropriate for discharge from the emergency department. The patient will pursue further outpatient evaluation with the primary care physician or other designated or consulting physician as outlined in the discharge instructions. The patient and/or caregivers are agreeable to this planof care and follow-up instructions have been explained in detail. The patient and/or caregivers have received these instructions in written format and have expressed an understanding of the discharge instructions. The patient and/or caregivers are aware that any significant change in condition or worsening of symptoms should prompt an immediate return to this or the closest emergency department or a call to 911. Supervising Physician Note MidLv/Doc Saw Pt 1I have seen and evaluated this patient and agree with the nurse practitioner or physician sound assistant's documentation and assessment. Documentation of one or moreelements of my assessment are included in the medical record. at 1855 at 0002 RPT #: [id number] OF REPORTEDEmerwhite river medical center department [id number]:11:00L.[id number] ilable for patient [id number]:56:02 [facility]
--- NOTE | 2023-08-09 13:08 | RAD REPORT ---
EXAM DESCRIPTION: CT - Spine Lumbar Wo Con - 08/09/2023 12:33 pm CLINICAL HISTORY: Radiculopathy. Lower back pain;Radiculopathy COMPARISON: No comparisons TECHNIQUE: Axial noncontrast CT imaging of the lumbar spine was performed with coronal and sagittal re-formatted images. All CT scans are performed using dose optimization technique as appropriate and may include automated exposure control or mA/KV adjustment according to patient size. FINDINGS: No acute lumbar spine fracture seen. No aggressive marrow pattern. Minimal retrolisthesis of L2 over L3 not exceeding 3 mm. S shaped scoliosis of the lumbar spine, with asymmetric disc height loss on the left at L2-3 and on the right at L4-5. Multilevel endplate and facet remodeling contributing to moderate left neural foraminal narrowing at L2-3 and [id number] narrowing on the right at L4-5. Bilateral mild neural foraminal narrowing a t L5-S1. Broad-based posterior disc bulge contributes to [id number]-jekelrtr right neural foraminal narr owing at L2-3. Paraspinal tissues are normal in thickness. No paraspinal abscess or hematoma seen. Intervertebral disc disease assessment is inherently limited by CT. Within these limitations, no high -grade canal stenosis suspected. Status post cholecystectomy. IMPRESSION: No acute osseous lumbar spine abnormality. Multilevel degenerative changes as above, contributing to variable degrees of neural foraminal narrow ing. Please consider MRI follow-up for assessment of disc disease and further evaluation of the neura l structures if clinically desired.
--- NOTE | 2023-08-09 13:20 | ER ---
Nurse's Notes [facility] Name: Bárbara Beebe Age: 57 yrs Sex: Female : 1965 Arrival Date: 08/09/2023 Time: 11:42 Bed 15 Private MD: Diagnosis: Lumbago with sciatica, left side;Other intervertebral disc degeneration, lumbar region Presentation: 08/09 11:58 Chief complaint: Chronic low back pain that radiates to left buttock, became worse a hb few days ago, had bowel incontinence x 1 yesterday. Hx of back sx, denies recent injury. Coronavirus screen: At this time, the client does not indicate any symptoms associated with coronavirus-19. Ebola Screen: No symptoms or risks identified at this time. Initial Sepsis Screen: Does the patient meet any 2 criteria? No. Patient's initial sepsis screen is negative. Does the patient have a suspected source of infection? No. Patient's initial sepsis screen is negative. Risk Assessment: Do you want to hurt yourself or someone else? Patient reports no desire to harm self or others. Onset of symptoms was August 07, 2023. 11:58 Method Of Arrival: Ambulatory hb 11:58 Acuity: ANGELA 3 hb Triage Assessment: 13:35 General: Appears distressed, uncomfortable, Behavior is calm, cooperative, appropriate ko1 for age. Musculoskeletal: Reports pain in L4 and L3 and lumbar area and back. Historical: - Allergies: 12:03 Codeine; hb - Home Meds: 12:03 Prozac 10 mg oral capsule [Active]; hb - PMHx: 12:03 bleeding ulcers; COPD; Crohn's; Hypertension; psoriasis; hb - PSHx: 12:03 Appendectomy; back sx; Cholecystectomy; hysterectomy; hb - Immunization history:: Adult Immunizations up to date. - Social history:: Smoking status: . Screenin:34 [facility] ED Fall Risk Assessment (Adult) History of falling in the last 3 months, ko1 including since admission No falls in past 3 months (0 pts) Confusion or Disorientation No (0 pts) Intoxicated or Sedated No (0 pts) Impaired Gait No (0 pts) Mobility Assist Device Used No (0 pt) Altered Elimination No (0 pt) Score/Fall Risk Level 0 - 2 = Low Risk Oriented to surroundings, Maintained a safe environment, Educated pt \T\ family on fall prevention, incl call for assistance when getting out of bed, Assessed \T\ reinforced patient's understanding of fall precautions, Provided non-skid footwear, Hourly rounding (assess needs \T\ fall precautionary measures) done, Used ambulatory aids as needed (educated on \T\ assisted with), Used gait belt as appropriate. Abuse screen: Denies threats or abuse. Denies injuries from another. Nutritional screening: No deficits noted. Tuberculosis screening: No symptoms or risk factors identified. Assessment: 12:34 Pain: Complains of pain in back. Neuro: Level of Consciousness is awake, alert, obeys ko1 commands, Oriented to person, place, time, situation, Appropriate for age. Vital Signs: 11:58 BP 186 / 102; Pulse 89; Resp 16; Temp 98.2; Pulse Ox 100% on R/A; Weight 68.95 kg; hb Height 5 ft. 2 in. ; Pain 7/10; 13:07 BP 160 / 98; Pulse 82; Resp 15; Pulse Ox 98% ; ko1 11:58 Body Mass Index 27.80 (68.95 kg, 157.48 cm) hb 11:58 Pain Scale: Adult hb ED Course: 11:46 Patient arrived in ED. mg5 11:47 Ayah Del Rosario PA-C is PHCP. sb4 11:47 Jm Heard MD is Attending Physician. sb4 11:52 Crissy Devine, FRANKI is Primary Nurse. ko1 12:03 Triage completed. hb 12:04 Arm band placed on. hb 12:34 CT Lumbar Spine Wo Con In Process Unspecified. EDMS 12:34 Patient has correct armband on for positive identification. Bed in low position. Call ko1 light in reach. Side rails up X 1. Pulse ox on. NIBP on. Door closed. Noise minimized. Lights dimmed. Warm blanket given. 13:07 Provided Education on: na. ko1 13:07 No provider procedures requiring assistance completed. Patient did not have IV access ko1 during this emergency room visit. Administered Medications: 12:23 Drug: Dexamethasone IM 10 mg IM once Route: IM; Site: left deltoid; ko1 13:06 Follow up: Response: No adverse reaction ko1 12:23 Drug: Cyclobenzaprine PO 10 mg PO once Route: PO; ko1 13:06 Follow up: Response: No adverse reaction ko1 12:24 Drug: Ketorolac IM 30 mg IM once Route: IM; Site: right deltoid; ko1 13:06 Follow up: Response: No adverse reaction ko1 13:24 Drug: traMADol PO 100 mg PO once Route: PO; ko1 13:35 Follow up: Response: No adverse reaction ko1 Medication: 13:07 VIS not applicable for this client. ko1 Outcome: 13:20 Discharge ordered by MD. rosado 13:34 Discharged to home ambulatory, ko1 13:34 Condition: stable 13:34 Discharge instructions given to patient, Instructed on discharge instructions, follow up and referral plans. Demonstrated understanding of instructions, follow-up care, medications, Prescriptions given X 3, 13:44 Patient left the ED. ko1 Signatures: Dispatcher [employer] EDMackenzie Cyr RN RN hb Oliver, Kathy, RN RN ko1 Ayah Del Rosario, MARCIO PADavid [email or web address] Berenice Saeed 5
--- NOTE | 2023-08-09 13:20 | EDPHYS ---
Physician Documentation [facility] Name: Bárbara Beebe Age: 57 yrs Sex: Female : 1965 Arrival Date: 08/09/2023 Time: 11:42 Bed 15 Private MD: ED Physician Jm Heard HPI: 08/09 12:22 This 57 yrs old Female presents to ER via Ambulatory with complaints of Back Pain, sb4 Diarrhea. 12:36 patient reports acute on chronic lower back pain. had lumbar surgery about 2.5 years sb4 ago. states the pain comes and goes. she tried pain management but did not like it because she does not want to take opioids on a daily basis. is in the process of seeing a provider who does back injections. she reports 1 episode of explosive diarrhea yesterday, but does have history of crohns. denies any urinary incontinence or saddle paresthesia. Historical: - Allergies: 12:03 Codeine; hb - Home Meds: 12:03 Prozac 10 mg oral capsule [Active]; hb - PMHx: 12:03 bleeding ulcers; COPD; Crohn's; Hypertension; psoriasis; hb - PSHx: 12:03 Appendectomy; back sx; Cholecystectomy; hysterectomy; hb - Immunization history:: Adult Immunizations up to date. - Social history:: Smoking status: . ROS: 12:36 Constitutional: Negative for fever, chills, and weight loss, sb4 12:36 Abdomen/GI: Positive for diarrhea, 12:36 Back: Positive for pain at rest, pain with movement, radiated pain, 12:36 All other systems are negative, Exam: 12:36 Constitutional: This is a well developed, well nourished patient who is awake, alert, sb4 and in no acute distress. Head/Face: Normocephalic, atraumatic. Eyes: Extra-ocular motions intact. Periorbital areas with no swelling, redness, or edema. ENT: Mucous membranes moist. Cardiovascular: Regular rate and rhythm with a normal S1 and S2. Respiratory: Lungs have equal breath sounds bilaterally, clear to auscultation and percussion. No rales, rhonchi or wheezes noted. No increased work of breathing, no retractions or nasal flaring. Abdomen/GI: Soft, non-tender, no distension. Skin: Warm, dry with normal turgor. Normal color with no rashes, no lesions, and no evidence of cellulitis. MS/ Extremity: Pulses equal, no cyanosis. Neurovascular intact. Full, normal range of motion. Neuro: Awake and alert, GCS 15, oriented to person, place, time, and situation. Motor strength 5/5 in all extremities. Sensory grossly intact. 12:36 Back: pain, that is moderate, of the lumbar area, ROM is painful, with rotation to the right, with rotation to the left, normal spinal alignment noted, CVA tenderness, is absent, vertebral tenderness, is appreciated at L3 and L4, muscle spasm, is not present, Straight leg raises: pain bilaterally, 12:36 Neuro: Exam negative for acute changes, focal neuro deficits, motor deficits, sensory deficits, gait abnormality, paresthesias, Romberg test, weakness, Vital Signs: 11:58 BP 186 / 102; Pulse 89; Resp 16; Temp 98.2; Pulse Ox 100% on R/A; Weight 68.95 kg; hb Height 5 ft. 2 in. ; Pain 7/10; 13:07 BP 160 / 98; Pulse 82; Resp 15; Pulse Ox 98% ; ko1 11:58 Body Mass Index 27.80 (68.95 kg, 157.48 cm) hb 11:58 Pain Scale: Adult hb MDM: 11:54 Patient medically screened. sb4 12:36 Differential diagnosis: chronic back pain, Fracture Joint Injury Ligament Injury Renal sb4 Infarction ruptured disc, spinal injury, sprain, vertebral fracture. 13:18 Data reviewed: vital signs, nurses notes, radiologic studies, I have discussed the sb4 patient's presentation/case with the attending Emergency Department Physician; and as a result, I will discharge patient. Counseling: I had a detailed discussion with the patient and/or guardian regarding the historical points, exam findings, and any diagnostic results supporting the discharge/admit diagnosis, lab results, radiology results, the need for outpatient follow up, spine, to return to the emergency department if symptoms worsen or persist or if there are any questions or concerns that arise at home. 08/09 12:11 Order name: CT Lumbar Spine Wo Con; Complete Time: 13:13 sb4 Administered Medications: 12:23 Drug: Dexamethasone IM 10 mg IM once Route: IM; Site: left deltoid; ko1 13:06 Follow up: Response: No adverse reaction ko1 12:23 Drug: Cyclobenzaprine PO 10 mg PO once Route: PO; ko1 13:06 Follow up: Response: No adverse reaction ko1 12:24 Drug: Ketorolac IM 30 mg IM once Route: IM; Site: right deltoid; ko1 13:06 Follow up: Response: No adverse reaction ko1 13:24 Drug: traMADol PO 100 mg PO once Route: PO; ko1 13:35 Follow up: Response: No adverse reaction ko1 Disposition Summary: 08/09/23 13:20 Discharge Ordered Notes: Location: Home sb4 Problem: an acute exacerbation sb4 Symptoms: have improved sb4 Condition: Stable sb4 Diagnosis - Lumbago with sciatica, left side sb4 - Other intervertebral disc degeneration, lumbar region sb4 Followup: sb4 - With: Private Physician - When: 1 week - Reason: Recheck today's complaints, Re-evaluation by your physician Discharge Instructions: - Discharge Summary Sheet sb4 - Back Exercises sb4 Forms: - Medication Reconciliation Form sb4 - Thank You Letter sb4 - Antibiotic Education sb4 - Prescription Opioid Use sb4 - Patient Portal Instructions sb4 - Leadership Thank You Letter sb4 Prescriptions: - Cyclobenzaprine 10 mg Oral Tablet - take 1 tablet ORAL route every 8 hours As needed; 30 tablet; Refills: 0, sb4 Product Selection Permitted - Tramadol 50 mg Oral Tablet - take 1 tablet ORAL route every 8 hours as needed; 12 tablet; Refills: 0, sb4 Product Selection Permitted - Prednisone 20 mg Oral Tablet - take 1 tablet ORAL route every 12 hours for 5 days; 10 tablet; Refills: 0, sb4 Product Selection Permitted Addendum: 08/11/2023 15:33 I was immediately available for consultation during this patient's visit. I did not e c2 personally see the patient or discuss the patient with the Z[facility]. . Signatures: Dispatcher [employer] Mackenzie Rob RN RN hb Oliver, Kathy, RN RN ko1 Ayah Del Rosario PA-C PADavid sb4 Jm Heard MD MD ec2
[2023-08-09 15:50] VITALS: BP 160/98; TEMP 98.2; O2SAT 98
== END ==
LOC: ER 11:42
DX: M54.42 Lumbago with sciatica, left side (principal); M51.36 Other intervertebral disc degeneration, lumbar region; M54.59 Other low back pain; R19.7 Diarrhea, unspecified; Z88.5 Allergy status to narcotic agent; Z98.890 Other specified postprocedural states
CPT/HCPCS: 72131; 96372; 99284; J1100

== ENCOUNTER 2024-09-03 09:07 | Emergency (ER) | payer OTHER ==
--- OUTSIDE RECORDS SUMMARY | 2024-09-03 09:12 | XMS REPORT | Continuity of Care Document ---
Author Name Unknown Address [address] [place] [address] [facility] Address [address] [facility] [place] [address] Care Team Providers Care Pyroglazer Name Role Phone Heron Anderson Jr. Primary Care Physician + Rocky Tejeda Attending Clinician Unavailable Heron Anderson Attending Clinician Unavailable Doctor Unassigned, [place] Attending Clinician U maryan Doctor Unassigned, [place] Attending Clinician U Hortencia Reynolds APRN Attending Clinician [phone] BRIGIDO MCDOWELL Attending Clinician Unavailable Israel Wheatley Attending Clinician Unavailabl e GC_GCBZW_Kadiyala_S Attending Clinician UnavailJulia Moncada MD Attending Clinician [phone] Francisco Sharma DO Attending Clinician [phone] Federico Qureshi Attending Clinician Unavailable Mohit Gaston DO Attending Clinician [phone]- [phone] QIAN ANDRADE Attending Clinician Unavail Qian See MD Attending Clinician [phone]- [phone] BAHMAN DOWNEY Attending Clinician Unavailab Bahman Rosa MD Attending Clinician [phone] Clinic, Neurosurgery Resident Attending Arabellaia cinthya Unavailable Michaela Marie Attending Clinician [phone] Jenelle Guardado DO Attending Clinician [phone] Eduin Bansal MD Attending Clinician [phone] Alex WEBB, Ilsa Attending Clinician [phone] Shin Albarran MD Attending Clinician [phone] Yadi Hart Attending Clinician + [phone] YADI GUTIERREZ Attending Clinician Unavailab maria m [email or web address]_S Admitting Clinician Unavaila Heron Pond Admitting Clinician Unavailable Alex WEBB, Ilsa Admitting Clinician [phone] Payers Payer Name Policy Type Policy Number Effective Date Expirati on Date Source [facility] [id number] 2021 00:00:00 Problems Condition Name Condition Details Condition Category Status Onset Date Resolution Date Last Treatment Date Treating Clinician Comments Source Numbness of right hand Numbness of right hand Disease Active 09-10 00:00: 00 [facility] 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 Added automatic ally from request for surgery [id number] [facility] Allergies, Adverse Reactions, Alerts Allergy Name Allergy Type Status Severity Reaction(s) Onset Date Inactive Date Treating Clinician Comments Source No Known Allergie s DA Active U 2020-07 00:00: 00 [facility] sucralfa te FA Active U Rash 2020-07 0 00:00: 00 [facility] No Known Allergie s DA Active U 2020-07 00:00: 00 [facility] sucralfa te FA Active U 2020-07 00:00: 00 [facility] NO KNOWN ALLERGIE S Drug Class Active [facility] Social History Social Habit Start Date Stop Date Quantity Comments Source History of tobacco use Cigarette Smoker [facility] to SARS-CoV-2 (event) 2022-08-31 00:00:00 2022-09-10 10:16:00 Not sure [facility] Alcoholic beverage intake 2020-03-02 00:00:00 2020-03-02 00:00:00 Current non-drinker of alcohol (finding) [facility] Alcohol intake 2020-03-02 00:00:00 2020-03-02 00:00:00 Current non-drinker of alcohol (finding) [facility] Tobacco use and exposure 2020-01-21 00:00:00 2020-01-21 00:00:00 Smokeless tobacco non-user [facility] Tobacco Comment 2020-01-21 00:00:00 2020-01-21 00:00:00 1/2 pack a day [facility] History of Social function 2019-01-28 00:00:00 2019-01-28 00:00:00 [facility] Sex Ass[birth year] At 1965 00:00:00 1965 00:00:00 F [facility] Smoking Status Start Date Stop Date Source Tobacco smoking consumption unknown [facility] Smokes tobacco daily 2020-01-21 00:00:00 [facility] Medications Ordered Medication Name Filled Medication Name Start Date Stop Date Current Medication? Ordering Clinician Indication Dosage Frequency Signature (SIG) Comments Components Source gabapentin 600 mg tablet 02-21 00:00: 00 05-23 05:59 :00 No [id number] 600mg Take 1 tablet by mouth 3 (three) times daily for 90 days. [facility] cyclobenzap rine 10 mg tablet 02-21 00:00: 00 05-23 05:59 :00 No [id number] 10mg Take 1 tablet by mouth 3 (three) times daily for 90 days. [facility] methylPREDN ISolone (MEDROL, NGA,) 4 mg tablets 02-16 00:00: 00 Yes [id number] Take by mouth SEE-INSTRU CTIONS. follow package directions [facility] heparin (porcine) injection 5,000 Units 01-28 01:00: 00 Yes 5000U 5,000 Units, Subcutaneo us, BID, First dose on Fri01/28/20 at 2000, Until Discontinu ed, Routine [facility] traZODone 50 mg tablet 01-27 20:46: 54 Yes 50mg Take 50 mg by mouth as needed for Insomnia. [facility] pneumococca l vac polyvalent (PNEUMOVAX- 23) injection 0.5 mL 01-27 19:30: 00 01-27 20:00 :00 No .5mL 0.5 mL, Intramuscu lar, ONCE, 1 dose, Fri01/28/20 at 1430, Routine [facility] traZODone 50 mg tablet 01-27 15:46: 54 Yes 50mg Take 50 mg by mouth as needed for Insomnia. [facility] cyclobenzap rine 5 mg tablet 01-27 00:00: 00 Yes [id number] 5mg Take 1 tablet by mouth 3 (three) times daily. [facility] HYDROcodone -acetaminop hen 5-325 mg tablet 01-27 00:00: 00 02-04 04:59 :00 No [id number] 1{tbl} Take 1 tablet by mouth every 6 (six) hours as needed for Pain (scale 4-6) or Pain (scale 7-10) for up to 7 days. Indication s: acute pain [facility] morpHINE injection 4 mg 01-26 23:20: 12 Yes 4mg 4 mg, Slow IV Push, Q3HPRN, Starting Sadaf 01/27/20 at 1820, Until Discontinu ed, Routine, severe pain not controlled by tylenol [facility] acetaminoph en (TYLENOL) tablet 650 mg 01-26 23:18: 26 Yes 650mg 650 mg, Oral, Q6HPRN, Starting Fri01/27/20 at 1818, Until Discontinu ed, Routine, Pain (scale 1-3), Temp > 38.5 C [facility] ceFAZolin (ANCEF) 1,000 mg in NaCl 0.9% [...] of therapy: within 24 hours of surgery [facility] HYDROcodone -acetaminop hen (NORCO 5) 5-325 mg tablet 1 tablet 01-26 22:45: 00 01-26 22:50 :00 No 1{tbl} 1 tablet, Oral, ONCE, 1 dose, Fri01/27/20 at 1745, Routine, PACU [facility] HYDROmorpho ne (DILAUDID) injection 0.2 mg 01-26 22:32: 54 01-26 23:48 :12 No .2mg 0.2 mg, Slow IV Push, Q5MIN PRN, 10 doses, Starting Fri01/27/20 at 1732, Until Fri01/27/20 at 1848, Routine, Pain (scale 7-10), PACU
Us e approved by (Faculty): PACU USE -ANESTHESI A SERVICE-HY DROMORPHON E INJECTIONS [facility] nicotine (NICODERM) 14 mg/24 hr patch 1 Patch 01-25 22:15: 00 Yes 1{patch } 1 Patch, Topical, Administer over 24 Hours, Q24H, First dose on Fri01/26/20 at 1715, Until Discontinu ed, Routine [facility] diphenhydrA MINE (BENADRYL) tablet 25 mg 01-24 17:05: 56 Yes 25mg 25 mg, Oral, Q6HPRN, Starting Fri01/25/20 at 1205, Until Discontinu ed, Routine, Itching [facility] docusate (COLACE) capsule 100 mg 01-24 14:00: 00 Yes 100mg 100 mg, Oral, DAILY, First dose on Fri01/25/20 at 0900, Until Discontinu ed, Routine [facility] pantoprazol e (PROTONIX) EC tablet 40 mg 01-24 01:00: 00 Yes 40mg 40 mg, Oral, BID, First dose on Fri01/24/20 at 2000, Until Discontinu ed, Routine [facility] gabapentin (NEURONTIN) capsule 300 mg 01-24 01:00: 00 Yes 300mg 300 mg, Oral, TID, First dose on Fri01/24/20 at 2000, Until Discontinu ed, Routine [facility] NaCl 0.9% (NS) IV infusion 1,000 mL 01-23 22:45: 00 Yes 1000mL at 50 mL/hr, IV Infusion, CONTINUOUS , Starting Fri01/24/20 at 1745, Until Discontinu ed, Routine [facility] traZODone (DESYREL) tablet 50 mg 01-23 21:54: 43 Yes 50mg 50 mg, Oral, QHSPRN, Starting Fri01/24/20 at 1654, Until Discontinu ed, Routine, Insomnia [facility] ondansetron (ZOFRAN (PF)) injection 4 mg 01-23 21:38: 49 Yes 4mg 4 mg, Slow IV Push, Q6HPRN, Starting Fri01/24/20 at 1638, Until Discontinu ed, Routine, Nausea and Vomiting (N/V) [facility] HYDROcodone -acetaminop hen (NORCO 5) 5-325 mg tablet 1 tablet 01-23 21:38: 49 Yes 1{tbl} 1 tablet, Oral, Q4HPRN, Starting Fri01/24/20 at 1638, Until Discontinu ed, Routine, Pain (scale 7-10) [facility] traMADol (ULTRAM) tablet 50 mg 01-23 21:38: 49 Yes 50mg 50 mg, Oral, Q4HPRN, Starting Fri01/24/20 at 1638, Until Discontinu ed, Routine, Pain (scale 4-6) [facility] acetaminoph en (TYLENOL) tablet 650 mg 01-23 15:00: 00 01-23 14:45 :00 No 650mg 650 mg, Oral, ONCE, 1 dose, 01/24/20 at 1000, MC [facility] gadoteridol (PROHANCE-1 5 mL) injection 14.42 mL 01-23 02:30: 00 01-23 02:00 :00 No .2mL/kg 14.42 mL (0.2 mL/kg ?72.1 kg), Intravenou s, ONCE, 1 dose, Fri01/23/20 at 2130, Routine [facility] traZODone 50 mg tablet 01-20 18:45: 45 Yes 50mg Take 50 mg by mouth as needed for Insomnia. [facility] gabapentin 300 mg capsule 01-20 00:00: 00 Yes [id number] 300mg Take 1 capsule by mouth 3 (three) times daily. [facility] albuterol 90 mcg/actuati on inhaler 03-31 00:00: 00 Yes 2{puff} Inhale 2 Puffs every 6 (six) hours as needed for Wheezing or Shortness of Breath. [facility] pantoprazol e 40 mg EC tablet 03-31 00:00: 00 Yes 40mg Take 1 tablet by mouth 2 (two) times daily. [facility] Immunizations Ordered Immunization Name Filled Immunization Name Date Status Comments Source Pneumococcal Polysaccharide, PPSV23 (PNEUMOVAX) 2020-01-28 00:00:00 Completed [facility] Pneumococcal Polysaccharide, PPSV23 (PNEUMOVAX) 2020-01-28 00:00:00 Completed [facility] Pneumococcal Polysaccharide, PPSV23 (PNEUMOVAX) 2020-01-28 00:00:00 Completed [facility] Pneumococcal Polysaccharide, PPSV23 (PNEUMOVAX) 2020-01-28 00:00:00 Completed [facility] Pneumococcal Polysaccharide, PPSV23 (PNEUMOVAX) 2020-01-28 00:00:00 Completed [facility] Pneumococcal Polysaccharide, PPSV23 (PNEUMOVAX) 2020-01-28 00:00:00 Completed [facility] Pneumococcal Polysaccharide, PPSV23 (PNEUMOVAX) 2020-01-28 00:00:00 Completed [facility] Pneumococcal Polysaccharide, PPSV23 (PNEUMOVAX) 2020-01-28 00:00:00 Completed [facility] Pneumococcal Polysaccharide, PPSV23 (PNEUMOVAX) 2020-01-28 00:00:00 Completed [facility] Pneumococcal Polysaccharide, PPSV23 (PNEUMOVAX) 2020-01-28 00:00:00 Completed [facility] Pneumococcal Polysaccharide, PPSV23 (PNEUMOVAX) 2020-01-28 00:00:00 Completed [facility] Pneumococcal Polysaccharide, PPSV23 (PNEUMOVAX) 2020-01-28 00:00:00 Completed [facility] Pneumococcal Polysaccharide, PPSV23 (PNEUMOVAX) 2020-01-28 00:00:00 Completed [facility] Pneumococcal Polysaccharide, PPSV23 (PNEUMOVAX) Unknown [facility] Pneumococcal Polysaccharide, PPSV23 (PNEUMOVAX) Unknown [facility] Vital Signs Vital Name Observation Time Observation Value Comments S ource Systolic blood pressure 2020-04-04 16:13:00 137 mm[Hg] [facility] Diastolic blood pressure 2020-04-04 16:13:00 82 mm[Hg] [facility] Heart rate 2020-04-04 16:13:00 101 /min [facility] Body height 2020-04-04 16:13:00 157.5 cm [facility] Body weight 2020-04-04 16:13:00 72.576 kg [facility] BMI 2020-04-04 16:13:00 29.26 kg/m2 [facility] Systolic blood pressure 2020-04-04 16:13:00 137 mm[Hg] [facility] Diastolic blood pressure 2020-04-04 16:13:00 82 mm[Hg] [facility] Heart rate 2020-04-04 16:13:00 101 /min [facility] Body height 2020-04-04 16:13:00 157.5 cm [facility] Body weight 2020-04-04 16:13:00 72.576 kg [facility] BMI 2020-04-04 16:13:00 29.26 kg/m2 [facility] Systolic blood pressure 2020-03-02 13:56:00 128 mm[Hg] [facility] Diastolic blood pressure 2020-03-02 13:56:00 78 mm[Hg] [facility] Heart rate 2020-03-02 13:55:00 100 /min [facility] Res[facility] rate 2020-03-02 13:55:00 16 /min [facility] Body height 2020-03-02 13:55:00 157.5 cm [facility] Body weight 2020-03-02 13:55:00 73.755 kg [facility] BMI 2020-03-02 13:55:00 29.74 kg/m2 [facility] Oxygen saturation in Arterial blood by Pulse oximetry 2020-03-02 13:55:00 98 /min [facility] Systolic blood pressure 2020-02-22 19:48:00 128 mm[Hg] [facility] Diastolic blood pressure 2020-02-22 19:48:00 77 mm[Hg] [facility] Heart rate 2020-02-22 19:48:00 109 /min [facility] Body height 2020-02-22 19:48:00 157.5 cm [facility] Body weight 2020-02-22 19:48:00 72.984 kg [facility] BMI 2020-02-22 19:48:00 29.43 kg/m2 [facility] Systolic blood pressure 2020-01-28 16:24:00 126 mm[Hg] [facility] Diastolic blood pressure 2020-01-28 16:24:00 64 mm[Hg] [facility] Heart rate 2020-01-28 16:24:00 88 /min Un[facility] Body temperature 2020-01-28 16:24:00 36.67 Stefany [facility] Respiratory rate 2020-01-28 16:24:00 18 /min [facility] Oxygen saturation in Arterial blood by Pulse oximetry 2020-01-28 16:24:00 97 /min [facility] Body height 2020-01-25 02:01:00 157.5 cm [facility] Body weight 2020-01-25 02:01:00 67.586 kg [facility] BMI 2020-01-25 02:01:00 27.25 kg/m2 [facility] Systolic blood pressure 2020-01-21 18:46:00 143 mm[Hg] [facility] Diastolic blood pressure 2020-01-21 18:46:00 84 mm[Hg] [facility] Heart rate 2020-01-21 18:46:00 76 /min [facility] Body temperature 2020-01-21 18:43:00 37.17 Stefany [facility] Respiratory rate 2020-01-21 18:43:00 15 /min [facility] Body height 2020-01-21 18:43:00 157.5 cm [facility] Body weight 2020-01-21 18:43:00 72.122 kg [facility] BMI 2020-01-21 18:43:00 29.08 kg/m2 [facility] Procedures Procedure Date / Time Performed Performing Clinician Source EMG 2022-09-11 13:06:47 Julia Del Rosario [facility] PATIENT QUESTIONNAIRE 2020-03-02 05:01:00 Doctor Unassigned, [place] [facility] BASIC METABOLIC PANEL (NA, K, CL, CO2, GLUCOSE, BUN, CREATININE, CA) 2020-01-28 09:58:00 Wilfredo Devine [facility] CBC WITH DIFFERENTIAL 2020-01-28 09:58:00 Rosalba Devine [facility] XR LUMBAR SPINE 1 VW 2020-01-27 20:09:01 Josefa Marcano [facility] XR LUMBAR SPINE 1 VW 2020-01-27 19:46:40 Josefa Marcano Horace [facility] LAMINECTOMY LUMBAR WITH DISCECTOMY 2020-01-27 18:12:00 Qian Andrade Taylor [facility] URINE CULTURE 2020-01-27 17:19:00 Wilfredo Devine [facility] PROTHROMBIN TIME / INR 2020-01-27 12:35:00 Farhana Devine [facility] ACTIVATED PARTIAL THRMPLAS DONAL 2020-01-27 12:35:00 Wilfredo Devine [facility] HB ABO GROUPING 2020-01-27 12:30:00 Wilfredo Devine [facility] CBC WITH DIFFERENTIAL 2020-01-27 10:04:00 Rosalba Devine [facility] BASIC METABOLIC PANEL (NA, K, CL, CO2, GLUCOSE, BUN, CREATININE, CA) 2020-01-27 10:04:00 Wilfredo Devine [facility] CBC WITH DIFFERENTIAL 2020-01-26 09:35:00 Rosalba Devine [facility] BASIC METABOLIC PANEL (NA, K, CL, CO2, GLUCOSE, BUN, CREATININE, CA) 2020-01-26 09:35:00 Wilfredo Devine [facility] CBC WITH DIFFERENTIAL 2020-01-25 09:15:00 Rosalba Devine [facility] BASIC METABOLIC PANEL (NA, K, CL, CO2, GLUCOSE, BUN, CREATININE, CA) 2020-01-25 09:15:00 Wilfredo Devine [facility] PROTHROMBIN TIME / INR 2020-01-25 00:22:00 Farhana Devine [facility] ACTIVATED PARTIAL THRMPLAS DONAL 2020-01-25 00:22:00 Wilfredo Devine [facility] FIBRINOGEN 2020-01-25 00:22:00 Wilfredo Devine [facility] BASIC METABOLIC PANEL (NA, K, CL, CO2, GLUCOSE, BUN, CREATININE, CA) 2020-01-25 00:22:00 Wilfredo Devine [facility] CBC WITH DIFFERENTIAL 2020-01-25 00:21:00 Rosalba Devine [facility] MR LUMBAR SPINE W WO CONTRAST 2020-01-24 02:15:00 Shin Albarran [facility] COVID-19 (ID NOW RAPID TESTING) 2020-01-24 00:01:00 Shin Albarran [facility] URINALYSIS 2020-01-23 22:59:00 Shin Albarran [facility] BASIC METABOLIC PANEL (NA, K, CL, CO2, GLUCOSE, BUN, CREATININE, CA) 2020-01-23 22:58:00 Shin Albarran [facility] Encounters Start Date/Time End Date/Time Encounter Type Admission Type Attending [facility] Care Facility Care Department Encounter ID Source 2024-08-25 15:43:01 Outpatient Rocky Tejeda [facility] [id number] [facility] 2023-12-16 12:49:00 [facility] [id number] [facility] 2023-12-11 09:52:00 Out[facility] [id number] [facility] 2022-09-10 10:18:18 Outpatient [facility] [id number] [facility] 2022-09-09 19:28:09 Outpatient [facility] [id number] [facility] 2022-09-06 07:03:24 Outpatient [facility] [id number] [facility] 2022-09-05 15:25:22 Outpatient [facility] [id number] [facility] 2022-08-09 09:09:35 Outpatient [facility] [id number] [facility] 2021-05-18 04:44:59 Emergency [facility] [id number] [facility] 2024-06-23 00:00:00 2024-07-24 18:16:06 Patient Secure Msg Doctor Unassigned, [place] Doctor Unassigned, [place] [facility] [id number] 350.1.13.10 [id number] [id number] [facility] 2023-12-22 00:00:00 2024-01-24 18:23:29 Patient Secure Msg Doctor Unassigned, [place] [facility] 1.840.114 350.1.13.10 [id number] [id number] [facility] 2023-12-23 00:00:00 2023-12-23 13:10:25 Letter (Out) Miguel Ángel Hortencia [facility] 1.84.114 350.1.13.10 4.2.7.2.686 [id number] [facility] 2023-12-23 08:30:00 2023-12-23 08:30:00 Outpatient BRIGIDO PAL [facility] [id number] [facility] 2023-07-18 00:00:00 2023-07-18 00:00:00 Outpatient Israel Wheatley [facility] [id number] [facility] 2023-05-16 00:00:00 2023-05-16 00:00:00 Outpatient _GCBZW_Ka diyala_S PRIV PRIV [id number] [facility] 2022-09-10 11:00:00 2022-09-10 15:58:19 Ancillary Procedure Julia Del Rosario [facility] 1.840.114 [id number] [facility] 2022-09-03 11:00:00 2022-09-03 11:00:00 Outpatient JULIA DEL ROSARIO [facility] [id number] [facility] 2021-09-03 00:00:00 2021-09-03 00:00:00 Telephone Francisco Sharma [facility] 1.840.114 [id number] [id number] [facility] 2021-05-11 17:52:00 2021-05-11 21:42:00 Inpatient Federico Patel [facility] [id number] [facility] 2020-10-10 00:00:00 2020-10-10 00:00:00 Patient Outreach Mohit Gaston [facility] [id number] 350.1.13.10 4.2.7.2.686 [id number] [facility] 2020-10-10 00:00:00 2020-10-10 00:00:00 Patient Outreach Mohit Gaston [facility] [id number] 350.1.13.10 4.2.7.2.686 [id number] 2020-04-04 11:15:00 2020-04-04 11:15:00 Outpatient R NITIN [facility] [id number] [facility] 2020-04-04 11:15:00 2020-04-04 11:15:00 Outpatient R NITIN [facility] [id number] [facility] 2020-04-04 10:33:36 2020-04-04 10:48:36 Office Visit Josekarly Kell [facility] 1.2.840.114 350.1.13.10 4.2.7.2.686 [id number] [facility] 2020-04-04 10:33:36 2020-04-04 10:48:36 Office Visit Josekarly Kell [facility] 1.2.840.114 350.1.13.10 4.2.7.2.686 [id number] 2020-03-29 11:15:00 2020-03-29 11:15:00 Outpatient R NITIN [facility] [id number] [facility] 2020-03-24 00:00:00 2020-03-24 00:00:00 Telephone Josekarly Kell [facility] 1.2.840.114 350.1.13.10 4.2.7.2.686 [id number] [facility] 2020-03-23 14:30:00 2020-03-23 14:30:00 Outpatient R NASREEN [facility] [id number] [facility] 2020-03-23 00:00:00 2020-03-23 00:00:00 Telephone [facility] 1.0.114 350.1.13.10 4.2.7.2.686 [id number] [facility] 2020-03-15 10:30:00 2020-03-15 10:30:00 Outpatient R QIAN ANDRADE [facility] [id number] [facility] 2020-03-02 08:38:55 2020-03-02 10:24:57 Office Visit Nasreen [facility] 1.0.114 350.1.13.10 4.2.7.2.686 [id number] [facility] 2020-03-02 09:00:00 2020-03-02 09:00:00 Outpatient R NASREEN [facility] [id number] [facility] 2020-03-02 00:00:00 2020-03-02 00:00:00 Orders Only Doctor Unassigned, [place] [facility] 1..114 350.1.13.10 4.2.7.2.686 [id number] [facility] 2020-02-22 13:48:46 2020-02-22 15:34:27 Office Visit Qian Andrade [facility] 1..114 350.1.13.10 4.2.7.2.686 [id number] [facility] 2020-02-22 14:15:00 2020-02-22 14:15:00 Outpatient R QIAN ANDRADE [facility] [id number] [facility] 2020-02-17 00:00:00 2020-02-17 00:00:00 Telephone Nitin [facility] Office Building 1.2.840.114 350.1.13.10 4.2.7.2.686 [id number] [facility] 2020-02-11 12:40:36 2020-02-11 14:03:31 Office Visit Clinic, Neurosurger y Resident Nitin [facility] 1.2.840.114 350.1.13.10 4.2.7.2.686 [id number] [facility] 2020-02-11 13:00:00 2020-02-11 13:00:00 Outpatient R NITIN [facility] [id number] [facility] 2020-02-03 00:00:00 2020-02-03 00:00:00 Telephone Nitin [facility] Office Building 1.2.840.114 350.1.13.10 4.2.7.2.686 [id number] [facility] 2020-01-31 00:00:00 2020-01-31 00:00:00 Transition of Care Michaela Marie Alanis Mihai 1.2.840.114 350.1.13.10 4.2.7.2.686 [id number] [facility] 2020-01-23 16:20:21 2020-01-28 15:18:00 Hospital Encounter Jenelle [facility]ado [facility] 1.2.840.114 350.1.13.10 4.2.7.2.686 [id number] [facility] 2020-01-25 00:00:00 2020-01-25 00:00:00 Telephone Shin Albarran [facility] 1.2.840.114 350.1.13.10 4.2.7.2.686 [id number] [facility] 2020-01-21 13:30:27 2020-01-21 14:00:27 Office Visit Yadi Gutierrez [facility] 1.2.840.114 350.1.13.10 4.2.7.2.686 [id number] [facility] 2020-01-21 13:15:00 2020-01-21 13:15:00 Outpatient R YADI GUTIERREZ [facility] [id number] [facility] 2017-03-26 14:55:00 2017-03-26 14:55:00 Emergency E [facility] [id number] [facility] 2017-03-07 17:01:00 2017-03-07 17:01:00 Emergency E [facility] [id number] [facility] 2017-02-22 11:40:00 2017-02-22 11:40:00 Emergency E [facility] [id number] [facility] Results Test Description Test Time Test Comments Results Resul t Comments Source - CT ABD PELVIS W/CONT 2021-05-11 20:45:00 [facility] 1965 Sex: F Name: KEKE HAYNES [facility] : 1965 Age/S: 55 / F [id number] [address] [place] Unit #: [id number] Loc: [place] [address] Phys: Federico Qureshi DO Acct: [id number] Dis Date: Status: REG ER PHONE #: [phone] Exam Date: 05/11/20212029 FAX #: Reason: pain - s/p colonoscopy yesterday EXAMS: CPT: [id number] CT ABD PELVIS W/CONT 82135 EXAMINATION: - CT ABD PELVIS W/CONT COMPARISON: [...] HAYNES : 1965 Age/S: 55 / F [id number] [address] [place] Unit #: [id number] Loc: [place] [address] Phys: Federico Qureshi DO Acct: [id number] Dis Date: Status: REG ER PHONE #: [phone] Exam Date: 05/11/20212029 FAX #: Reason: pain - s/p colonoscopy yesterday EXAMS: CPT: [id number] CT ABD PELVIS W/CONT 77241 (Continued) No evidence of bowel perforation or [...] (2047) PAGE 2 Signed Report BASIC METABOLIC [id number] 19:26:00* Test Item Value Reference Range Interpretation [...] CA) 9.5 MG/DL 8.5-10.1 N HEPATIC FUNCTION [id number] 19:26:00* Test Item Value Reference Range Interpretation [...] 45-117 N UA RFLX MICR CULT IF [id number] 19:08:00* Test Item Value Reference Range Interpretation [...] NONE-TRACE Indication for culture: Flank PainCBC W/AUTO [id number] 18:41:00* Test Item Value Reference Range Interpretation [...] ode = MDIFF) NO DIFF/SCN CRITERIA URINE [id number] 11:57:00* Test Item Value Reference Range Interpretation Comme nts URINE CULTURE (test code = 630-4) No aerobic organisms isolated [facility] METABOLIC PANEL (NA, K, CL, CO2, GLUCOSE, BUN, CREATININE, CA)2020-01-28 10:47:00* Test Item Value Reference Range Interpretation Comme nts NA (test code = 5018781389) 135 mmol/L 135-145 K (test code = 9985688904) 4.0 mmol/L 3.5-5 CL (test code = 7944480057) 104 mmol/L 98-108 CO2 TOTAL (test code = 0619521578) 26 mmol/L 23-31 AGAP (test code = 2357150064) 2-16 BUN (test code = 7200462042) 7 mg/dL 7-23 GLUCOSE (test code = 0024473395) 128 mg/dL 70-110 H CREATININE (test code = 9759615458) 0.42 mg/dL 0.5-1.04 L CALCIUM (test code = 4121606619) 9.1 mg/dL 8.6-10.6 eGFR Calculation (Non-) (test code = 7695809325) mL/min/1.73m2 eGFR Calculation () (test code = 6835868552) mL/min/1.73m2 SOLEDAD (test code = SOLEDAD) Association [...] imaging tests). Lab Interpretation (test code = 31552-9) [facility] WITH [id number] 10:28:00* Test Item Value Reference Range Interpretation [...] 33.2 g/dL 31.6-35.1 RDW-SD (test code = 64417-8) 40.6 fL 39-49.9 RDW-CV (test code = 788-0) 12.2 % 12-15.5 PLT (test code = 777-3) See_Comment [Automated message] The system which generated this result transmitted reference range: 166 - 358 10*3/?L. The reference range was not used to interpret this result as normal/abnormal. MPV (test code = 90597-9) 8.8 fL 9.5-12.9 L NRBC/100 WBC (test code = 5069732894) See_Comment [Automated message] The system which generated this result transmitted reference range: 0.0 - 10.0 /100 WBCs. The reference range was not used to interpret this result as normal/abnormal. NRBC x10^3 (test code = 9694603484) <0.01 See_Comment [Automated message] The system which generated this result transmitted reference range: 10*3/?L. The reference range was not used to interpret this result as normal/abnormal. GRAN MAT (NEUT) % (test code = 770-8) 84.9 % IMM GRAN % (test code = 9267175434) 0.40 % LYMPH % (test code = 736-9) 10.7 % MONO % (test code = 5905-5) 3.7 % EOS % (test code = 713-8) 0.1 % BASO % (test code = 706-2) 0.2 % GRAN MAT x10^3(ANC) (test code = 0028497910) 10.00 10*3/uL 1.88-7.09 H IMM GRAN x10^3 (test code = 7124237428) 0.05 10*3/uL 0-0.06 LYMPH x10^3 (test code = 731-0) 1.26 10*3/uL 1.32-3.29 L MONO x10^3 (test code = 742-7) 0.43 10*3/uL 0.33-0.92 EOS x10^3 (test code = 711-2) <0.03 0.03-0.39 L BASO x10^3 (test code = 704-7) <0.03 0.01-0.07 Lab Interpretation (test code = 79009-2) [facility] [id number] 20:33:47Lateral intraoperative radiographs of the lumbar spine [...] Inferior localizing instrumenttip is identified at L5-S1 level.[facility] 1 [id number] 19:58:40Single lateral intraoperative radiograph of the lumbar spine was obtained. The most inferior fully formed disc is presumed L5-S1. The superior localizing instrument tip is posterior to the L1 spinousprocess at the level of the L2 vertebral body. The inferior localizinginstrument tip is at the levelof the L5 vertebral body.EXAMINATION: XR LUMBAR SPINE 1 VW CLINICAL HISTORY: Intraoperative COMPARIS ON: ?None [facility], [...] at the level of the L5 vertebral body.[facility] Center[facility] / INR 2020-01-27 13:21:00* Test Item Value Reference Range Interpretation Comme [facility] PROTIME PATIENT (test code = 5964-2) See_Comment [Automated [employer]] The system which generated this result transmitted reference range: 10.1 - 12.6 Seconds. The reference range was not used to interpret this result as normal/abnormal. INR (test code = 6301-6) Normal INR <1.1; Warfarin Therapeutic range 2.0 to 3.0 or 2.5 to 3.5, depending upon the indications. Lab Interpretation (test code = 02278-9) Normal [facility]2020-[facility] 13:21:00* Test Item Value Reference Range Interpretation Comme [facility] APTT Patient (test code = 3173-2) See_Comment H [Automated [employer]] The system which generated this result transmitted reference range: 26 - 36 Seconds. The reference range was not used to interpret this result as normal/abnormal. Lab Interpretation (test code = 58842-5) Abnormal [facility] and Screen - ONCE [id number] 13:15:10 * Test Item Value Reference Range Interpretation Comme nts ABO & RH (test code = 20) O POSITIVE Performed at [facility] Laboratory Services - [facility] Blood [address] Free: [phone] No. [id number] IAT (test code = 1185) Negative Performed at [facility] Laboratory Services [facility] Blood [address] Free: [phone] No. [id number] [facility]OLIC PANEL (NA, K, CL, CO2, GLUCOSE, BUN, CREATININE, CA)2020-01-27 10:53:00* Test Item Value Reference Range Interpretation Comme nts NA (test code = 4602300827) 138 mmol/L 135-145 K (test code = 1857310630) 3.7 mmol/L 3.5-5 CL (test code = 5928048971) 105 mmol/L 98-108 CO2 TOTAL (test code = 3923070226) 26 mmol/L 23-31 AGAP (test code = 7062821112) 2-16 BUN (test code = 7831046407) 13 mg/dL 7-23 GLUCOSE (test code = 3193768379) 98 mg/dL 70-110 CREATININE (test code = 2133681069) 0.51 mg/dL 0.5-1.04 CALCIUM (test code = 2196317851) 9.1 mg/dL 8.6-10.6 eGFR Calculation (Non-) (test code = 3806238628) mL/min/1.73m2 eGFR Calculation () (test code = 4733821573) mL/min/1.73m2 SOLEDAD (test code = SOLEDAD) Association [...] or urine or abnormalities in imaging tests). [facility] WITH [id number] 10:32:00* Test Item Value Reference Range Interpretation Comme nts WBC (test code = 6690-2) See_Comment [Scaleform] The system which generated this result transmitted reference range: 4.30 - 11.10 10*3/?L. The reference range was not used to interpret this result as normal/abnormal. RBC (test code = 789-8) See_Comment [Scaleform] The system which generated this result transmitted [...] 33.7 g/dL 31.6-35.1 RDW-SD (test code = 68313-4) 39.8 fL 39-49.9 RDW-CV (test code = 788-0) 12.2 % 12-15.5 PLT (test code = 777-3) See_Comment [Automated Bixa ge] The system which generated this result transmitted reference range: 166 - 358 10*3/?L. The reference range was not used to interpret this result as normal/abnormal. MPV (test code = 19379-6) 8.5 fL 9.5-12.9 L NRBC/100 WBC (test code = 9307523101) See_Comment [Automated Versa ssage] The system which generated this result transmitted reference range: 0.0 - 10.0 /100 WBCs. The reference range was not used to interpret this result as normal/abnormal. NRBC x10^3 (test code = 7885690523) <0.01 See_Comment [Automated Bixa ge] The system which generated this result transmitted reference range: 10*3/?L. The reference range was not used to interpret this result as normal/abnormal. GRAN MAT (NEUT) % (test code = 770-8) 44.4 % IMM GRAN % (test code = 0778443979) 0.30 % LYMPH % (test code = 736-9) 42.7 % MONO % (test code = 5905-5) 7.1 % EOS % (test code = 713-8) 4.9 % BASO % (test code = 706-2) 0.6 % GRAN MAT x10^3(ANC) (test code = 3077835526) 2.81 10*3/uL 1.88-7.09 IMM GRAN x10^3 (test code = 8460060836) <0.03 0-0.06 LYMPH x10^3 (test code = 731-0) 2.71 10*3/uL 1.32-3.29 MONO x10^3 (test code = 742-7) 0.45 10*3/uL 0.33-0.92 EOS x10^3 (test code = 711-2) 0.31 10*3/uL 0.03-0.39 BASO x10^3 (test code = 704-7) 0.04 10*3/uL 0.01-0.07 Lab Interpretation (test code = 54609-3) Abnormal [facility] METABOLIC PANEL (NA, K, CL, CO2, GLUCOSE, BUN, CREATININE, CA)2020-01-26 11:01:00* Test Item Value Reference Range Interpretation Comme nts NA (test code = 0788524265) 135 mmol/L 135-145 K (test code = 1606676874) 4.3 mmol/L 3.5-5 Slight hemolysis CL (test code = 7961843660) 105 mmol/L 98-108 CO2 TOTAL (test code = 7036445207) 22 mmol/L 23-31 L AGAP (test code = 3350937982) 2-16 BUN (test code = 2354821323) 17 mg/dL 7-23 Slight hemolysis GLUCOSE (test code = 1456339954) 103 mg/dL 70-110 CREATININE (test code = 3827108483) 0.59 mg/dL 0.5-1.04 CALCIUM (test code = 0341485258) 9.3 mg/dL 8.6-10.6 eGFR Calculation (Non-) (test code = 3320034806) mL/min/1.73m2 eGFR Calculation () (test code = 9011694821) mL/min/1.73m2 SOLEDAD (test code = SOLEDAD) Association [...] imaging tests). Lab Interpretation (test code = 79088-7) [facility] WITH [id number] 10:18:00* Test Item Value Reference Range Interpretation Comme nts WBC (test code = 6690-2) See_Comment [Automated Bixa ge] The system which generated this result transmitted reference range: 4.30 - 11.10 10*3/?L. The reference range was not used to interpret this result as normal/abnormal. RBC (test code = 789-8) See_Comment [Automated Bixa ge] The system which generated this result [...] 33.7 g/dL 31.6-35.1 RDW-SD (test code = 11408-4) 40.5 fL 39-49.9 RDW-CV (test code = 788-0) 12.2 % 12-15.5 PLT (test code = 777-3) See_Comment H [Automated Bixa ge] The system which generated this result transmitted reference range: 166 - 358 10*3/?L. The reference range was not used to interpret this result as normal/abnormal. MPV (test code = 03813-5) 9.1 fL 9.5-12.9 L NRBC/100 WBC (test code = 9386800902) See_Comment [Automated Versa ssage] The system which generated this result transmitted reference range: 0.0 - 10.0 /100 WBCs. The reference range was not used to interpret this result as normal/abnormal. NRBC x10^3 (test code = 7344722094) <0.01 See_Comment [Automated messa ge] The system which generated this result transmitted reference range: 10*3/?L. The reference range was not used to interpret this result as normal/abnormal. GRAN MAT (NEUT) % (test code = 770-8) 44.6 % IMM GRAN % (test code = 1784810979) 0.10 % LYMPH % (test code = 736-9) 42.5 % MONO % (test code = 5905-5) 7.2 % EOS % (test code = 713-8) 5.2 % BASO % (test code = 706-2) 0.4 % GRAN MAT x10^3(ANC) (test code = 7236342280) 3.01 10*3/uL 1.88-7.09 IMM GRAN x10^3 (test code = 6229966140) <0.03 0-0.06 LYMPH x10^3 (test code = 731-0) 2.88 10*3/uL 1.32-3.29 MONO x10^3 (test code = 742-7) 0.49 10*3/uL 0.33-0.92 EOS x10^3 (test code = 711-2) 0.35 10*3/uL 0.03-0.39 BASO x10^3 (test code = 704-7) 0.03 10*3/uL 0.01-0.07 Lab Interpretation (test code = 66501-9) [facility] WITH [id number] 10:55:00* Test Item Value Reference Range Interpretation [...] 33.2 g/dL 31.6-35.1 RDW-SD (test code = 91783-0) 41.4 fL 39-49.9 RDW-CV (test code = 788-0) 12.5 % 12-15.5 PLT (test code = 777-3) See_Comment [Automated messa ge] The system which generated this result transmitted reference range: 166 - 358 10*3/?L. The reference range was not used to interpret this result as normal/abnormal. MPV (test code = 01155-5) 9.2 fL 9.5-12.9 L NRBC/100 WBC (test code = 4524505738) See_Comment [Automated Versa ssage] The system which generated this result transmitted reference range: 0.0 - 10.0 /100 WBCs. The reference range was not used to interpret this result as normal/abnormal. NRBC x10^3 (test code = 9310780932) <0.01 See_Comment [Automated messa ge] The system which generated this result transmitted reference range: 10*3/?L. The reference range was not used to interpret this result as normal/abnormal. GRAN MAT (NEUT) % (test code = 770-8) 31.3 % IMM GRAN % (test code = 4021420658) 0.20 % LYMPH % (test code = 736-9) 53.1 % MONO % (test code = 5905-5) 8.6 % EOS % (test code = 713-8) 6.3 % BASO % (test code = 706-2) 0.5 % GRAN MAT x10^3(ANC) (test code = 7445931309) 1.79 10*3/uL 1.88-7.09 L IMM GRAN x10^3 (test code = 6102652678) <0.03 0-0.06 LYMPH x10^3 (test code = 731-0) 3.04 10*3/uL 1.32-3.29 MONO x10^3 (test code = 742-7) 0.49 10*3/uL 0.33-0.92 EOS x10^3 (test code = 711-2) 0.36 10*3/uL 0.03-0.39 BASO x10^3 (test code = 704-7) 0.03 10*3/uL 0.01-0.07 REACT LYMPHS (test code = 0292884007) Moderate Lab Interpretation (test code = 69755-5) Abnormal [facility] METABOLIC PANEL (NA, K, CL, CO2, GLUCOSE, BUN, CREATININE, CA)2020-01-25 10:38:00* Test Item Value Reference Range Interpretation Comme nts NA (test code = 4919396124) 139 mmol/L 135-145 K (test code = 9792403523) 4.0 mmol/L 3.5-5 CL (test code = 4905086813) 105 mmol/L 98-108 CO2 TOTAL (test code = 2231950687) 26 mmol/L 23-31 AGAP (test code = 7089807772) 2-16 BUN (test code = 1832313339) 12 mg/dL 7-23 GLUCOSE (test code = 4545708137) 99 mg/dL 70-110 CREATININE (test code = 9706766181) 0.47 mg/dL 0.5-1.04 L CALCIUM (test code = 5074662972) 9.2 mg/dL 8.6-10.6 eGFR Calculation (Non-) (test code = 3430387550) mL/min/1.73m2 eGFR Calculation () (test code = 7502099148) mL/min/1.73m2 SOLEDAD (test code = SOLEDAD) Association [...] imaging tests). Lab Interpretation (test code = 43838-6) [facility]normal [facility] (NA, K, CL, CO2, GLUCOSE, BUN, CREATININE, CA)2020-01-25 00:52:00* Test Item Value Reference Range Interpretation Comme nts NA (test code = 3330367563) 138 mmol/L 135-145 K (test code = 0648419157) 5.0 mmol/L 3.5-5 Slight hemolysis CL (test code = 7543714273) 107 mmol/L 98-108 CO2 TOTAL (test code = 8620918260) 24 mmol/L 23-31 AGAP (test code = 9570007917) 2-16 BUN (test code = 6420695587) 8 mg/dL 7-23 Slight hemolysis GLUCOSE (test code = 5028457716) 107 mg/dL 70-110 CREATININE (test code = 3219819165) 0.53 mg/dL 0.5-1.04 CALCIUM (test code = 1747233621) 9.3 mg/dL 8.6-10.6 eGFR Calculation (Non-) (test code = 8514111356) mL/min/1.73m2 eGFR Calculation () (test code = 0795758261) mL/min/1.73m2 SOLEDAD (test code = SOLEDAD) Association [...] or urine or abnormalities in imaging tests). [facility] / [id number] 00:41:00* Test Item Value Reference Range Interpretation Comme [facility] PROTIME PATIENT (test code = 5964-2) See_Comment [Scaleform] The system which generated this result transmitted reference range: 10.1 - 12.6 Seconds. The reference range was not used to interpret this result as normal/abnormal. INR (test code = 6301-6) Normal INR <1.1; Warfarin Therapeutic range 2.0 to 3.0 or 2.5 to 3.5, depending upon the indications. Lab Interpretation (test code = 14423-4) Normal [facility]2020-[facility] 00:41:00* Test Item Value Reference Range Interpretation Comme [facility] APTT Patient (test code = 3173-2) See_Comment H [Automated messa ge] The system which generated this result transmitted reference range: 26 - 36 Seconds. The reference range was not used to interpret this result as normal/abnormal. Lab Interpretation (test code = 14303-9) Abnormal [facility] Center[facility]IB[facility]INOGEN2020-07-07 00:41:00* Test Item Value Reference Range Interpretation Comme nts Fibrinogen (test code = 3098958837) 488 mg/dL 167-453 H Lab Interpretation (test cod e = 65690-5) Abnormal [facility] CenterCBC WITH [id number] 00:37:00* Test Item Value Reference Range Interpretation [...] 32.9 g/dL 31.6-35.1 RDW-SD (test code = 99083-9) 41.0 fL 39-49.9 RDW-CV (test code = 788-0) 12.4 % 12-15.5 PLT (test code = 777-3) See_Comment H [Automated messa ge] The system which generated this result transmitted reference range: 166 - 358 10*3/?L. The reference range was not used to interpret this result as normal/abnormal. MPV (test code = 37097-4) 8.6 fL 9.5-12.9 L NRBC/100 WBC (test code = 3540037051) See_Comment [Automated me ssage] The system which generated this result transmitted reference range: 0.0 - 10.0 /100 WBCs. The reference range was not used to interpret this result as normal/abnormal. NRBC x10^3 (test code = 0478680752) <0.01 See_Comment [Automated messa ge] The system which generated this result transmitted reference range: 10*3/?L. The reference range was not used to interpret this result as normal/abnormal. GRAN MAT (NEUT) % (test code = 770-8) 44.8 % IMM GRAN % (test code = 0705258737) 0.20 % LYMPH % (test code = 736-9) 41.3 % MONO % (test code = 5905-5) 8.3 % EOS % (test code = 713-8) 4.8 % BASO % (test code = 706-2) 0.6 % GRAN MAT x10^3(ANC) (test code = 2311437358) 2.91 10*3/uL 1.88-7.09 IMM GRAN x10^3 (test code = 2174206258) <0.03 0-0.06 LYMPH x10^3 (test code = 731-0) 2.68 10*3/uL 1.32-3.29 MONO x10^3 (test code = 742-7) 0.54 10*3/uL 0.33-0.92 EOS x10^3 (test code = 711-2) 0.31 10*3/uL 0.03-0.39 BASO x10^3 (test code = 704-7) 0.04 10*3/uL 0.01-0.07 Lab Interpretation (test code = 41521-9) Abnormal [facility] W WO [id number] 13:56:48Spondylosis and spondyloarthropathy result in moderate spinal [...] on the descending L3 and S1 nerve roots.[facility] CenterCOVID[facility] (ID NOW RAPID TESTING) 2020-01-24 00:44:00* Test Item Value Reference Range Interpretation Comme nts SARS-CoV-2 Rapid ID NOW (test code = 03018-6) Not Detected Not Detected SOLEDAD (test code = SOLEDAD) ID NOW COVID-19 As say is an isothermal nucleic acid amplification test intended for the qualitative detection of nucleic acid from SARS-CoV-2 viral RNA in nasopharyngeal (NURSE EXTERN) specimens. It is used under Emergency Use [...] clinically indicated. Lab Interpretation (test code = 46722-3) [facility] (NA, K, CL, CO2, GLUCOSE, BUN, CREATININE, CA)2020-01-23 23:29:00* Test Item Value Reference Range Interpretation Comme nts NA (test code = 9400841604) 138 mmol/L 135-145 K (test code = 8279757618) 4.3 mmol/L 3.5-5 CL (test code = 7990604959) 108 mmol/L 98-108 CO2 TOTAL (test code = 1862289970) 23 mmol/L 23-31 AGAP (test code = 6118491512) 2-16 BUN (test code = 8389118065) 8 mg/dL 7-23 GLUCOSE (test code = 9839075610) 83 mg/dL 70-110 CREATININE (test code = 9136182261) 0.44 mg/dL 0.5-1.04 L CALCIUM (test code = 5929179295) 9.6 mg/dL 8.6-10.6 eGFR Calculation (Non-) (test code = 1220920422) mL/min/1.73m2 eGFR Calculation () (test code = 3085139191) mL/min/1.73m2 SOLEDAD (test code = SOLEDAD) Association [...] imaging tests). Lab Interpretation (test code = 93510-5) Abnormal [facility]IS2020-07-05 23:25:00* Test Item Value Reference Range Interpretation Comme nts APPEARANCE (test code = 7189551535) Clear Clear COLOR (test code = 0355612458) Yellow Yellow PH (test code = 3166220446) 4.8-8.0 SP GRAVITY (test code = 3081124063) 1.003-1.030 GLU U QUAL (test code = 8626342329) Normal Normal BLOOD (test code = 5846860080) 1+ Negative A KETONES (test code = 1274864490) Negative Negative PROTEIN (test code = 2887-8) Negative Negative UROBILIN (test code = 9394574907) Normal Normal BILIRUBIN (test code = 4413380034) Negative Negative NITRITE (test code = 2278139670) Negative Negative LEUK IRAJ (test code = 7244297314) Negative Negative RBC/HPF (test code = 5156070438) See_Comment [Automated ASSET4] The system which generated this result transmitted reference range: 0 - 3 HPF. The reference range was not used to interpret this result as normal/abnormal. WBC/HPF (test code = 2144319350) See_Comment [Automated [employer]] The system which generated this result transmitted reference range: 0 - 5 HPF. The reference range was not used to interpret this result as normal/abnormal. BACTERIA (test code = 2508506015) Negative Negative SQ EPITH (test code = 4355041777) See_Comment [Automated [employer]] The system which generated this result transmitted reference range: <=2 HPF. The reference range was not used to interpret this result as normal/abnormal. Lab Interpretation (test code = 88673-7) Abnormal [facility] KUB 1 [id number] 18:15:18 Patient: KEKE HAYNES Date/Time03/15/2019 18:02 CDTReason [...] Michael JackSigned (Electronic Signature): 03/15/2019 6:15 pmUrinalysis [id number] 16:19:42* Test Item Value Reference Range Interpretation Comme nts UA WBC (test code = UA WBC) 0-5 /HPF 0-5 UA RBC (test code = UA RBC) 0-4 /HPF 0-4 UA Bacteria (test code = UA Bacteria) Negative /HPF Negative UA Squam Epithelial (test co de = UA Squam Epithelial) 21-73 /LPF 0-20 A Urinalysis with Culture, if [id number] 16:19:42* Test Item Value Reference Range Interpretation [...] Indicated A Result created by rule GL_SET_UA_MICRO_IND [id number] 16:13:11* Test Item Value Reference Range Interpretation Comme nts Amylase Level (test code = Amylase Level) 53 IntlUnit/L 25-115 Comprehensive Metabolic [id number] 16:13:11* Test Item Value Reference Range Interpretation [...] = AST) 20 IntlUnit/L 15-37 Comprehensive Metabolic [id number] 16:13:11* Test Item Value Reference Range Interpretation [...] AA) >60 mL/min/1.73 m2 N Comprehensive Metabolic [id number] 16:13:11* Test Item Value Reference Range Interpretation [...] eGFR Non-AA) >60 mL/min/1.73 m2 N Automated [id number] 16:12:15* Test Item Value Reference Range Interpretation Comme nts Neutro Auto (test code = Neutro Auto) 55.4 % N Lymph Auto (test code = Lymph Auto) 36.3 % N [place] Auto (test code = [place] Auto) 5.5 % N Eos, Auto (test code = Eos, Auto) 1.9 % N Basophil Auto (test code = B asophil Auto) 0.9 % N Neutro Absolute (test code = Neutro Absolute) 4.9 x10 2.7-7.3 Lymph Absolute (test code = Lymph Absolute) 3.2 x10 0.8-3.5 [place] Absolute (test code = M nancy Absolute) 0.5 x10 0.3-0.9 Eos Absolute (test code = Eo s Absolute) 0.2 x10 0.0-0.3 Baso Absolute (test code = B aso Absolute) 0.1 x10 0.0-0.1 Complete Blood Count with [id number] 16:12:14* Test Item Value Reference Range Interpretation [...] Auto N Result created b y GL_SET_SLIDE_REVIEW_A [facility] [place] Comprehensive Metabolic [id number] 14:21:14* Test Item Value Reference Range Interpretation [...] = AST) 22 IntlUnit/L 15-37 Comprehensive Metabolic [id number] 14:21:14* Test Item Value Reference Range Interpretation [...] AA) >60 mL/min/1.73 m2 N Comprehensive Metabolic [id number] 14:21:14* Test Item Value Reference Range Interpretation [...] >60 mL/min/1.73 m2 N Pro B Natriuretic [id number] 14:05:15* Test Item Value Reference Range Interpretation Comme nts NT-proBNP (test code = NT-proBNP) 6 pg/mL 0-125 < 300 pg/ml - he art failure unlikelyAge less than 50 years, > 450 pg/ml - heart failure lilkelyAge 50 - 75 years, > 900 pg/ml - heart failure likelyAge greater than 75 years, > 1800 pg/ml - heart failure likely Complete Blood Count with [id number] 13:59:12* Test Item Value Reference Range Interpretation [...] Result created b y GL_SET_SLIDE_REVIEW_A [facility]TO Automated [id number] 13:59:12* Test Item Value Reference Range Interpretation Comme nts Neutro Auto (test code = Neutro Auto) 68.5 % N Lymph Auto (test code = Lymph Auto) 24.5 % N [place] Auto (test code = [place] Auto) 5.6 % N Eos, Auto (test code = Eos, Auto) 1.0 % N Basophil Auto (test code = B asophil Auto) 0.4 % N Neutro Absolute (test code = Neutro Absolute) 8.2 x10 2.7-7.3 H Lymph Absolute (test code = Lymph Absolute) 2.9 x10 0.8-3.5 [place] Absolute (test code = M nancy Absolute) 0.7 x10 0.3-0.9 Eos Absolute (test code = Eo s Absolute) 0.1 x10 0.0-0.3 Baso Absolute (test code = B aso Absolute) 0.0 x10 0.0-0.1 XR Chest 2 [id number] 13:41:47Patient: KEKE HAYNES Date/Time8/01/2019 13:18 CDTReason for ExamShortness of breathReportInformation: Dyspnea, [...] (Electronic Signature): 02/24/2019 1:41 pmXR Chest 2 [id number] 10:31:38Patient: KEKE HAYNES Date/Time10/06/2018 10:23 CDTReason for ExamCoughReportXR CHEST 2 VIEWSDIAGNOSIS: Cough and chest painThe heart, lungs and bony thorax are unremarkable andunchanged since 09/22/2018. Hyperinflation suggesting early COPD.IMPRESSION: No active disease and nochange since 12/07/2018. Final Dictated by: MD Denton Michael JackDictated DT/TM: 10/06/2018 10:30 amSigned by: MD Denton Michael JackSigned (Electronic Signature): 10/06/2018 10:31 amXR Chest 2 [id number] 14:38:49Patient: KEKE HAYNES Date/Time09/22/2018 14:05 CSTReason for ExamRespiratory di stressReportCHEST 2 VIEWS:HISTORY: Respiratory distress, fever, shortness of breathCOMPARISON: 03/29/2018The cardiomediastinal silhouette shows no significant abnormality.No pleural fluid or pulmonary infiltrates are identified.The bony architecture appears intact, where adequately seen.IMPRESSION:Noactive cardiopulmonary process is identified. Final Dictated by: MD Azevedo Ramon JulioDictated DT/TM: 09/22/2018 2:38 pmSigned by: MD Roberto Carlos, Wei Amandaigned (Electronic Signature): 09/22/2018 2:38 pmXR Ankle Complete 3+ Views [id number] 07:53:52Patient: KEKE HAYNES Date/Time09/04/2018 22:40 CSTReason for ExamInjuryReportEXAMINATION: Right ankle 3 viewsTECHNIQUE: AP, lateral, and oblique views of the right ankle were per formed.COMPARISON: NoneINDICATION: Fall with posttraumatic right ankle painFINDINGS:No [...] oblique views of the left foot were perform ed.COMPARISON: Left foot x-rays 01/05/2008INDICATION: Fall with posttraumatic [...] was administered, as ordered.Small 4 mm nodule no sherry in the right lower lobe. Suggest 6-8 [...] Leary Craig ASigned (Electronic Signature): 07/09/2018 2:15 [id number] 18:24:00* Test Item Value Reference Range Interpretation Comme [...] BACTERIA (test code = BACTERIA) NEGATIVE NONE [id number] 18:16:00* Test Item Value Reference Range Interpretation Comme nts SODIUM (test code = NA) 143 MMOL/L 137-145 K+ (test code = KSERUM) 3.4 MMOL/L 3.5-5.1 L PLEASE NOTE NEW REFERENCE RANGE(S) IN EFFECT EFFECTIVE 02/22/2010 - NEW ANALYZER (Currently 5600) CHLORIDE (test code = CL) 108 MMOL/L 98-107 H CO2 (test code = CO2) 30 MMOL/L 22-30 BUN (test code = BUN) 9 MG/DL 7-17 CREA (test code = CREA) 0.5 MG/DL 0.7-1.2 L GLUCOSE (test code = GLUCOSE) 98 MG/DL 70-99 Fasting glucos e normal <100 MG/DL- [employer] recommendation CALCIUM (test code = [...] GFR of >90 mL/min/1.73m2 is considered normal. [id number] 18:16:00* Test Item Value Reference Range Interpretation Comme nts LIPASE (test code = LIPA) 95 U/L 23-300 [id number] 18:07:00* Test Item Value Reference Range Interpretation [...] = NEUT) 3.5 K/UL 1.2-7.2 OCCULT BLOOD, [id number] 06:35:00* Test Item Value Reference Range Interpretation Comme nts OCCULT BLOOD FECES (test cod e = OCCBLFEC) NEGATIVE NEGATIVE LOT# CRD (test code = LOT# CRD) [id number] EXP CRD (test code = EXP CRD) 10-20 LOT# DVL (test code = LOT# DVL) 22126 EXP DVL (test code = EXP DVL) 7-21 INT QC (test code = INT QC) PASSED [id number] 00:14:00* Test Item Value Reference Range Interpretation Comme nts SODIUM (test code = NA) 143 MMOL/L 137-145 K+ (test code = KSERUM) 4.5 MMOL/L 3.5-5.1 PLEASE NOTE NEW REFERENCE RANGE(S) IN EFFECT EFFECTIVE 02/22/2010 - NEW ANALYZER (Currently 5600) CHLORIDE (test code = CL) 108 MMOL/L 98-107 H CO2 (test code = CO2) 24 MMOL/L 22-30 BUN (test code = BUN) 12 MG/DL 7-17 CREA (test code = CREA) 0.6 MG/DL 0.7-1.2 L GLUCOSE (test code = GLUCOSE) 95 MG/DL 70-99 Fasting glucos e normal <100 MG/DL- [employer] recommendation CALCIUM (test code = [...] GFR of >90 mL/min/1.73m2 is considered normal. [id number] 00:14:00* Test Item Value Reference Range Interpretation Comme nts LIPASE (test code = LIPA) 134 U/L 23-300 ABDOMEN 2 [id number] 21:18:[address] [id number] IMAGING REPORTPatient Name: Amaris HAYNES of Service: [id number]: 52 Sex: F Order #: [id number] Room: [facility]: 10-31 X-Ray Number: [id number] Record Number: [id number] Hospital Number: [id number] Physician: YANNA GUTIERREZOrdering Physician: Mallika MAY.History: Abdomen pain.Technique: 3 supine and upright abdominal projections were obtained andreviewed.Findings:There is no specific acute appearing abdominal abnormality.There is no evidence to suggest obstruction or free air.The osseousstructures appear intact. There is rotatory dextroscoliosis ofthe lumbar spine.Impression:No specific acute appearing abdominal abnormalities.Electronically Signed By: Hao Cole M.D., 04/04/2018 9:16 PMLegally authenticated by CLARA Talley 2018-04-04 21:16:[id number] 17:07:00* Test Item Value Reference Range Interpretation [...] (test code = NEUT) 5.6 K/UL 1.2-7.2 [id number] 17:06:00* Test Item Value Reference Range Interpretation [...] (test code = UAMICRO) NO CT ABDOMEN/PELVIS [id number] 16:28:[address] [id number] IMAGING REPORTPatient Name: Amaris HAYNES of Service: [id number]: 52 Sex: F Order #: [id number] Room: [facility]: 1965 X-Ray Number: [id number] Record Number: [id number] Hospital Number: [id number] Physician: YANNA GUTIERREZOrdering Physician: DANETTE CLARK ABDOMEN/PELVIS WITH 04/01/2018 3:52 PMHistory: Abd pain without fever, nausea, vomiting, Crohn's diseaseComparisons: 01/26/2016This CT exam was performed using one or more of the following dosereduction techniques: Automated exposure control,adjustment of the MAand/or KV according to patient [...] 4:25 PMLegally authenticated by GEORGIA WISEMAN 2018-04-01 16:25:[id number] 14:29:00* Test Item Value Reference Range Interpretation Comme nts BLOOD TYPE (test code = TYPE) O Rh Positive ANTIBODY SCREEN (test code = SCREEN) NEGATIVE NEGATIVE PROTHROMBIN TIME WITH [id number] 14:13:00* Test Item Value Reference Range Interpretation Comme nts PROTHROMBIN TIME (test code = PT) 12.5 SECONDS 12.0-14.6 INR Usual Range = 2 to 3 for prevention of deep vein thrombosis (DVT) INR (test code = INR) 0.9 [id number] 14:13:00* Test Item Value Reference Range Interpretation Comme nts PTT (test code = PTT) 37.8 SECONDS 24.4-36.3 H HEPARIN THERAPEU TIC RANGE 57-92 SECONDS [id number] 14:00:00* Test Item Value Reference Range Interpretation Comme nts SODIUM (test code = NA) 140 MMOL/L 137-145 K+ (test code = KSERUM) 4.3 MMOL/L 3.5-5.1 PLEASE NOTE NEW REFERENCE RANGE(S) IN EFFECT EFFECTIVE 02/22/2010 - NEW ANALYZER (Currently 5600) CHLORIDE (test code = CL) 103 MMOL/L 98-107 CO2 (test code = CO2) 29 MMOL/L 22-30 BUN (test code = BUN) 7 MG/DL 7-17 CREA (test code = CREA) 0.5 MG/DL 0.7-1.2 L GLUCOSE (test code = GLUCOSE) 100 MG/DL 70-99 H Fasting glucos e normal <100 MG/DL- [employer] recommendation CALCIUM (test code = [...] GFR of >90 mL/min/1.73m2 is considered normal. [id number] 14:00:00* Test Item Value Reference Range Interpretation Comme nts LIPASE (test code = LIPA) 40 U/L 23-300 [id number] 13:51:00* Test Item Value Reference Range Interpretation [...] code = NEUT) 8.8 K/UL 1.2-7.2 H [id number] 13:22:00* Test Item Value Reference Range Interpretation [...] (test code = UAMICRO) NO SPINE LUMBAR [id number] 13:32:[address] [id number] IMAGING REPORTPatient Name: Amaris HAYNES of Service: [id number]: 51 Sex: F Order #: [id number] Room: [facility]: 10-19 X-Ray Number: [id number] Record Number: [id number] Hospital Number: [id number] Physician: Abelardo YEing Physician: LAURENCE HONG SPINE 5 VIEWS:CLINICAL HISTORY: Backpain radiates into both legs and hipsTECHNIQUE: AP, lateral, bilateral oblique and coned-down lateral views wereobtainedFINDINGS:There are 5 nonrib-bearing lumbar vertebral bodies demonstrated.There is no fracture or dislocation demonstrated.Changes of discogenic disease are noted at L5-S1 with degenerative changesin the articular facets.There are surgical clips in the right upper quadrant and overlying theright sacroiliac joint.Impression:1. No acute changes are demonstrated.2. Chronic changesas described.Electronically Signed By: Jim Streeter M.D., 10/16/2017 1:29 PMLegally authenticated by JENNIFER Daniels 2017-10-16 13:29:[id number] 12:33:00* Test Item Value Reference Range Interpretation [...] BACTERIA (test code = BACTERIA) NEGATIVE NONE 18164& [id number] 06:46:50CHEST 2 VIEWREASON FOR STUDY: [id number]-[id number]:The heart and mediastinum are within normal limits. Minor linearscarring or atelectasis is noted involving the right infrahilar region.Lungs appear slightly hyperinflated. Bony structures appear intact. . No other significant findings. IMPRESSION: Minor linear scarring or atelectasis involving the right infrahilarregion. Chest is otherwise clear. Notes Date/Time Note Provider Source 2021-05-11 18:11:00 [facility] ([facility]) EMERGENCY PROVIDER REPORT REPORT#:[id number] REPORT STATUS: Signed DATE:05/11/21 TIME:1810 PATIENT: KEKE HAYNES UNIT #: [id number] ROOM/BED: : 63 AGE: 55 SEX: F PCP PHYS: Heron Anderson MD SERVICE AUTHOR: Federico Qureshi DO * ALL edits or amendments must be made on the electronic/computer document * Federico Qureshi 05/11/211810: HPI-Abd Pain F 40 and Over General Confirmed Patient Yes Initial Greet Date/Time 05/11/211754 Presentation Chief Complaint Abdominal pain Hx Obtained From Patient Sudden in Onset? No Onset Occurred Yesterday Symptom Duration Since onset Progression since Onset Gradually worsening Caused by No trauma by history Location Diffuse Quality Burning Radiation Does not radiate. Migration/Movement None Severity: Onset Mild Severity: Current Moderate Associated with Reports: Back pain, Nausea. Denies: Chest pain, Chills, Constipation, Diarrhea, Dysuria, Fever, Hematemesis, Hematochezia, Hematuria, Melena, Shortness of breath, Urinary frequency, Urinary retention, Urinary tract symptoms, Vaginal bleeding, Vaginal discharge, Vomiting. Exacerbated by Palpation Relieved by Nothing Free Text HPI Notes Free Text HPI Notes Patient had a colonoscopy performed yesterday. States after she developed left- sided back pain but today has developed diffuse abdominal pain and distention. Risk-Abd Pain F 40 and Over )( Abdominal Aortic Aneurysm Risk factors reviewed Review of Systems ROS Statements Complete sys rev neg except as marked. Focused Review of Systems Constitutional Denies: Chills, Fever, Lethargy. Respiratory Denies: Cough, non-productive, Cough, productive, Shortness of breath. Cardiovascular Denies: Chest pain, Syncope. GI Reports: Abdominal pain, Nausea. Denies: Constipation, Diarrhea, Vomiting. Female Denies: Dysuria, Flank pain, Pelvic pain. Musculoskeletal Reports: Lumbar pain. Denies: Extremity pain, Neck pain, Thoracic pain. Past Medical History - Adult Stated Complaint POST PROCEDURE- SENT PATIENT TO ER Review of Nursing Notes Rev avail, and agree Physical Exam Vital Signs Vital Signs First Documented: Result Date Time Pulse Ox 100 [...] 2140 Review of Vital Signs Reviewed Focused PE General/Const General/Const Awake, Alert MS Head Head Normocephalic Eyes Eyes PERRL Ears/Nose/Throat Ears/Nose/Throat Airway patent, Mucous membranes moist, Pharynx NL Resp/Chest Respiratory/Chest Breath sounds NL, Breath sounds = bilat, No respiratory distress, No rales, No rhonchi, No wheezing Cardiovascular Cardiovascular Heart rate NL, Regular rhythm, Heart sounds NL, Peripheral circulation NL Abdomen/GI Abdomen/GI McBurney's non-tender, No guarding, No rebound, BS normoactive, No hernia, No palpable mass, No pulsatile mass Tenderness/Guarding/Rebound Tender diffuse. Bowel Sounds/Distention Distention moderate. MS Back Back Inspection NL, Non-tender, No CVA tenderness Skin Skin Color NL, Warm, Dry, Turgor NL Neurologic Neurologic Oriented X3, Speech NL, No motor deficits, No sensory deficits Additional PE MS Upper Extrem Upper Extremity/MS Atraumatic, Inspection NL Interpretation Diagnostics Lab Results Interpretation Results Laboratory Tests 05/11/211818: [Embedded Image Not Available] Laboratory Tests: 05/11 Chemistry Sodium (134 - 147 mmol/L) 138 [...] % (Auto) (20.5 - 51.1 %) 36.7 [place] % (Auto) (1.7 - 9.3 %) 7.2 Eos % (Auto) (0.0 - 6.0 %) 3.0 Baso % (Auto) (0.0 - 2.0 %) 0.3 Neut # (Auto) (1.8 - 7.6 K/mm3) 3.5 Lymph # (Auto) (0.6 - 3.2 K/mm3) 2.4 [place] # (Auto) (0.3 - 1.1 K/mm3) 0.5 [...] - 7.0 pH UNITS) 6.0 Ur Specific [place] (1.005 - 1.030 SG) <=1.005 Urine Protein [...] Screen (Culture CHK Criteria) NO, WBC<10 Recent Impressions: CAT SCAN - CT ABD PELVIS W/CONT 05/11 2020 Report Impression - Status: SIGNED Entered: 05/11/20212047 IMPRESSION: No evidence of bowel perforation or other acute abnormality Dilated common bile duct and intrahepatic biliary system. In the absence of abnormal laboratory values, findings may be related to reservoir effect secondary to the patient's cholecystectomy status Impression By: [id number] - Silvia Olmedo M.D. Re-Evaluation MDM ED Course Medication(s) Ordered Medication(s) Ordered: Central Nervous System Agents Sig/Davis Start time Last Medication Dose Route Stop Time Status Admin Morphine Sulfate 4 MG X1ED STA 05/11 1810 DC 05/11 IV 05/11 181 1822 Diagnostic Agents Sig/Davis Start time Last Medication Dose Route Stop Time Status Admin Iopamidol 0 .STK-MED ONE 05/11 2010 DC 05/11 IV 2030 Electrolytic, Caloric, And Nalini Sig/Davis Start time Last Medication Dose Route Stop Time Status Admin Sodium Chloride 50 ML .STK-MED ONE 05/11 2010 DC 05/11 IV 2030 Sodium Chloride 1,000 ML X1ED STA 05/11 1810 DC 05/11 IV 05/11 1909 1822 Gastrointestinal Drugs Sig/Davis Start time Last Medication Dose Route Stop Time Status Admin Ondansetron HCl 4 MG X1ED STA 05/11 1811 DC 05/11 IV 05/11 1812 182 Patient Discharge Departure Vital Signs/Condition Vital Signs First Documented: Result Date Time Pulse Ox 100 [...] of this entry have been reviewed. Pt/Provider Handoff Care Transferred to Dr. Gallo Care Transferred at 1900 Yris Gallo 05/11/212123: Past Medical History - Adult Allergies Coded Allergies: sucralfate (Rash 05/11/21) Home Medications Reported Medications traZODone (DESYREL) 50 MG PO DAILY metroNIDAZOLE (FLAGYL) 500 MG PO BID levoFLOXacin (LEVAQUIN) 500 MG PO DAILY Interpretation Diagnostics Lab Results Interpretation Lab Imaging Statement Laboratory radiographic studies reviewed and considered in the medical decision-making. Re-Evaluation MDM )( Re-Evaluation/Progress #1 )( Re-Eval Status Improved Plan Post Re-Eval Plan discharge Abd Pain MDM Note F > 40 The patient is resting comfortably and feels better, [...] volvulus, sepsis, or other significant pathology to warrant further testing, continued ED treatment, admission, or surgical [...] physician as indicated in the discharge instructions. Consultation Consultation Referral/Consult Name AlainaRico Storm DO [facility] Called Gastroenterology Requested Call Time 2123 Requested Call Date 05/11/21 Call Returned Call returned Call Returned Time 2123 Call Returned Date 05/11/21 [facility] Will see in office Patient Discharge Departure Clinical Impression Clinical Impression Primary Impression: Abdominal pain Secondary Impressions: S/P colonoscopy Disposition Decision Discharge )( Discharged to Home Yes )( Time 2124 )( Date 05/11/21 Discharge/Care Plan Counseled Regarding Diagnosis, Lab results, Imaging studies, Prescriptions, Need for follow-up, When to return to ED (Auto) Prescriptions Current Visit Scripts DICYCLOMINE (BENTYL) 20 MG PO QID DICYCLOMINE (BENTYL) 20 MG PO QID #30 TABS ONDANSETRON ODT (ZOFRAN ODT) 4 MG PO Q6H PRN PRN NAUSEA/VOMITING ONDANSETRON ODT (ZOFRAN ODT) 4 MG PO Q6H PRN PRN NAUSEA/VOMITING #15 TABS Patient Instructions ED Abdominal Pain Unknown ... Referrals Rico Foley DO Discharge Note I have spoken with the patient and/or caregivers. I have explained the patient's condition, diagnoses and treatment plan based on the information available to me at this time. I have answered the patient's and/or caregiver's questions and addressed any concerns. The patient and/or caregivers have as good an understanding of the patient's diagnosis, condition and treatment plan as can be expected at this point. The vital signs have been stable. The patient's condition is stable and appropriate for discharge from the emergency department. The patient will pursue further outpatient evaluation with the primary care physician or other designated or consulting physician as outlined in the discharge instructions. The patient and/or caregivers are agreeable to this plan of care and follow-up instructions have been explained [...] 911. Supervising Physician Note MidLv/Doc Saw Pt 1 I have seen and evaluated this patient and agree with the nurse practitioner or physician payroll assistant's documentation and assessment. Documentation of one or more elements of my assessment are included in the medical record. at 1855 at 0002 RPT #: [id number] END OF REPORT [facility]
[2024-09-03] MEDS ORDERED: CEFTRIAXONE 1000 MG/VIAL ONE (09:40)
[2024-09-03] MEDS ORDERED: LEVALBUTEROL 1.25 MG/3 ML NEB ONE (09:41)
[2024-09-03] MEDS ORDERED: IPRATROPIUM BROM 0.5MG/2.5ML ONE (09:41)
[2024-09-03] MEDS ORDERED: AZITHROMYCIN 250 MG TAB ONE (09:41)
[2024-09-03] MEDS ORDERED: predniSONE 20 MG TAB ONE (09:41)
[2024-09-03] MEDS ORDERED: LIDOCAINE 1% MPF 5 ML VIAL ONE (09:42)
--- NOTE | 2024-09-03 09:46 | RAD REPORT ---
EXAMINATION: TWO VIEW CHEST XR CLINICAL INDICATION: Female, 58 years old. [facility] MAIN CHEST PAIN Bed Name: TECHNIQUE: 2 view radiographs of the chest were performed. COMPARISON: 01/24/2021 FINDINGS: The lungs are well inflated and clear. No pneumothorax or sizable effusion. The heart is normal in si ze. Mediastinal contours are unremarkable. IMPRESSION: No acute or significant abnormalities.
[2024-09-03 10:04] LABS: SARS-CoV-2 Antigen CONTROL BLUE LINE VIS/BG OK; SARS-CoV-2 Antigen Rapid Res Negative (Negative)
--- NOTE | 2024-09-03 10:57 | ER ---
Nurse's Notes [facility] Name: Bárbara Beebe Age: 58 yrs Sex: Female : 1965 Arrival Date: 09/03/2024 Time: 09:07 Bed 17 Private MD: Diagnosis: Influenza due to other identified influenza virus with pneumonia-influenza B;COPD/ Chronic obstructive pulmonary disease, unspecified;Acute upper respiratory infection, unspecified Presentation: 09/03 09:18 Chief complaint: Patient states: Diagnosed with URI last week at PCP's office, but now ss has sore throat. Coronavirus screen: Client denies travel out of the [place] in the last 14 days. Ebola Screen: Patient denies exposure to infectious person. Patient denies travel to an Ebola-affected area in the 21 days before illness onset. Initial Sepsis Screen: Does the patient meet any 2 criteria? No. Patient's initial sepsis screen is negative. Does the patient have a suspected source of infection? No. Patient's initial sepsis screen is negative. Risk Assessment: Do you want to hurt yourself or someone else? Patient reports no desire to harm self or others. Onset of symptoms was August 27, 2024. 09:18 Method Of Arrival: Ambulatory 09:18 Acuity: ANGELA 3 ss Historical: - Allergies: 09:21 Codeine; ss - PMHx: 09:21 bleeding ulcers; COPD; Crohn's; Hypertension; psoriasis; ss 10:30 Multiple sclerosis; aa5 - PSHx: 09:21 Appendectomy; back sx; Cholecystectomy; hysterectomy; ss Screenin:00 [facility] ED Fall Risk Assessment (Adult) History of falling in the last 3 months, aa5 including since admission Yes- fall prone (multiple falls) (3 pts) Confusion or Disorientation No (0 pts) Intoxicated or Sedated No (0 pts) Impaired Gait Yes (1 pt) Mobility Assist Device Used Yes (1 pt) Altered Elimination No (0 pt) Score/Fall Risk Level 3 or more points = High Risk Oriented to surroundings, Maintained a safe environment, Educated pt \\T\\ family on fall prevention, incl call for assistance when getting out of bed, Assessed \\T\\ reinforced patient's understanding of fall precautions. Abuse screen: Denies threats or abuse. Nutritional screening: No deficits noted. Tuberculosis screening: No symptoms or risk factors identified. Assessment: 09:55 General: Appears comfortable, Behavior is calm, cooperative. Pain: Complains of pain in aa5 throat. Neuro: Level of Consciousness is awake, alert, obeys commands, Oriented to person, place, time, situation. Cardiovascular: Patient's skin is warm and dry. Respiratory: Reports cough that is productive, persistent Airway is patent Respiratory effort is even, unlabored, Respiratory pattern is regular, symmetrical, Breath sounds are clear bilaterally. GI: No signs and/or symptoms were reported involving the gastrointestinal system. : No signs and/or symptoms were reported regarding the genitourinary system. EENT: Throat is reddened. Derm: Skin is pink, warm \\T\\ dry. Musculoskeletal: Range of motion: intact in all extremities. 10:23 Reassessment: Patient is alert, oriented x 3, equal unlabored respirations, skin aa5 warm/dry/pink. neb tx ongoing . 12:15 Reassessment: Patient is alert, oriented x 3, equal unlabored respirations, skin aa5 warm/dry/pink. Vital Signs: 09:18 BP 144 / 85; Pulse 95; Resp 15; Temp 98(O); Pulse Ox 97% on R/A; Weight 78.93 kg; ss Height 5 ft. 2 in. ; Pain 6/10; 10:02 BP 147 / 73; Pulse 87; Resp 18 S; Pulse Ox 99% on Nebulizer Mask; aa5 12:00 BP 138 / 92; Pulse 92; Resp 19 S; Pulse Ox 99% on R/A; aa5 09:18 Body Mass Index 31.82 (78.93 kg, 157.48 cm) 09:18 Pain Scale: Adult ss ED Course: 09:12 Patient arrived in ED. al6 09:13 Kamari Salvador MD is Attending Physician. vanna 09:15 Xenia Chris, FRANKI is Primary Nurse. aa5 09:21 Triage completed. ss 09:21 Arm band placed on left wrist. ss 09:27 Chest Pa And Lat (2 Views) XRAY In Process Unspecified. EDMS 09:55 Patient has correct armband on for positive identification. Bed in low position. Call aa5 light in reach. Side rails up X 1. Pulse ox on. NIBP on. 12:15 No provider procedures requiring assistance completed. Patient did not have IV access aa5 during this emergency room visit. Administered Medications: 09:59 Drug: Levalbuterol Inhalation 3.75 mg Inhalation once Route: Inhalation; aa5 10:24 Follow up: Response: No adverse reaction aa5 09:59 Drug: Ipratropium Inhalation Aerosol 0.5 mg Inhalation once Route: Inhalation; aa5 10:24 Follow up: Response: No adverse reaction aa5 10:02 Drug: AZITHromycin PO 500 mg PO once Route: PO; aa5 10:24 Follow up: Response: No adverse reaction aa5 10:02 Drug: Rocephin (cefTRIAXone) IM 1 grams IM once Route: IM; Site: right gluteus; aa5 10:24 Follow up: Response: No adverse reaction aa5 10:02 Drug: predniSONE PO 60 mg PO once Route: PO; aa5 10:24 Follow up: Response: No adverse reaction aa5 12:10 Drug: Oseltamivir PO 75 mg PO once Route: PO; aa5 12:15 Follow up: Response: No adverse reaction; Medication administered at discharge. aa5 Medication: 10:25 VIS not applicable for this client. aa5 Outcome: 10:57 Discharge ordered by MD. prabhakar 12:15 Discharged to home ambulatory, aa5 12:15 Condition: stable 12:15 Discharge instructions given to patient, Instructed on discharge instructions, follow up and referral plans. medication usage, Demonstrated understanding of instructions, follow-up care, medications, Prescriptions given X 4, Pt refused rx for albuterol, pt states "it makes me feel so shaky", MD aware 12:17 Patient left the ED. aa5 Signatures: Dispatcher [employer] EDIN Kamari Salvador MD MD cha Calderon, Audri, RN RN aa5 Sophia Gonzalez RN RN Dot Block Corrections: (The following items were deleted from the chart) 12:37 12:15 Discharge instructions given to patient, Instructed on discharge instructions, aa5 follow up and referral plans. medication usage, Demonstrated understanding of instructions, follow-up care, medications, Prescriptions given X aa5
--- NOTE | 2024-09-03 10:57 | EDPHYS ---
Physician Documentation [facility] Name: Bárbara Beebe Age: 58 yrs Sex: Female : 1965 Arrival Date: 09/03/2024 Time: 09:07 Bed 17 Private MD: SILVA Physician Kamari Salvador HPI: 09/03 10:46 This 58 yrs old Female presents to ER via Ambulatory with complaints of Sore vanna Throat, Painful Cough. Historical: - Allergies: 09:21 Codeine; ss - PMHx: 09:21 bleeding ulcers; COPD; Crohn's; Hypertension; psoriasis; ss 10:30 Multiple sclerosis; aa5 - PSHx: 09:21 Appendectomy; back sx; Cholecystectomy; hysterectomy; ss ROS: 10:50 Constitutional: Negative for fever, chills, and weight loss, Eyes: Negative for injury, vanna pain, redness, and discharge, ENT: Negative for injury, pain, and discharge, Neck: Negative for injury, pain, and swelling, Cardiovascular: Negative for chest pain, palpitations, and edema, Abdomen/GI: Negative for abdominal pain, nausea, vomiting, diarrhea, and constipation, Back: Negative for injury and pain, : Negative for injury, bleeding, discharge, and swelling, MS/Extremity: Negative for injury and deformity, Skin: Negative for injury, rash, and discoloration, Neuro: Negative for headache, weakness, numbness, tingling, and seizure, Psych: Negative for depression, anxiety, suicide ideation, homicidal ideation, and hallucinations, Allergy/Immunology: Negative for hives, rash, and allergies, Endocrine: Negative for neck swelling, polydipsia, polyuria, polyphagia, and marked weight changes, Hematologic/Lymphatic: Negative for swollen nodes, abnormal bleeding, and unusual bruising, 10:50 Respiratory: Positive for cough, shortness of breath, wheezing, expiratory, Exam: 10:50 Constitutional: This is a well developed, well nourished patient who is awake, alert, vanna and in no acute distress. Head/Face: Normocephalic, atraumatic. Eyes: Pupils equal round and reactive to light, extra-ocular motions intact. Lids and lashes normal. Conjunctiva and sclera are non-icteric and not injected. Cornea within normal limits. Periorbital areas with no swelling, redness, or edema. ENT: Nares patent. No nasal discharge, no septal abnormalities noted. Tympanic membranes are normal and external auditory canals are clear. Oropharynx with no redness, swelling, or masses, exudates, or evidence of obstruction, uvula midline. Mucous membranes moist. Neck: Trachea midline, no thyromegaly or masses palpated, and no cervical lymphadenopathy. Supple, full range of motion without nuchal rigidity, or vertebral point tenderness. No Meningismus. Chest/axilla: Normal chest wall appearance and motion. Nontender with no deformity. No lesions are appreciated. Cardiovascular: Regular rate and rhythm with a normal S1 and S2. No gallops, murmurs, or rubs. Normal PMI, no JVD. No pulse deficits. Abdomen/GI: Soft, non-tender, with normal bowel sounds. No distension or tympany. No guarding or rebound. No evidence of tenderness throughout. Back: No spinal tenderness. No costovertebral tenderness. Full range of motion. Skin: Warm, dry with normal turgor. Normal color with no rashes, no lesions, and no evidence of cellulitis. MS/ Extremity: Pulses equal, no cyanosis. Neurovascular intact. Full, normal range of motion., bilateral aka Neuro: Awake and alert, GCS 15, oriented to person, place, time, and situation. Cranial nerves II-XII grossly intact. Motor strength 5/5 in all extremities. Sensory grossly intact. Cerebellar exam normal. Normal gait. Psych: Awake, alert, with orientation to person, place and time. Behavior, mood, and affect are within normal limits. 10:50 Respiratory: the patient does not display signs of respiratory distress, Respirations: no acute changes, is not noted, Breath sounds: decreased breath sounds, that are mild, are scattered, rhonchi, that are mild, are scattered, stridor, is not appreciated, Respiratory rate: 18 Vital Signs: 09:18 BP 144 / 85; Pulse 95; Resp 15; Temp 98(O); Pulse Ox 97% on R/A; Weight 78.93 kg; ss Height 5 ft. 2 in. ; Pain 6/10; 10:02 BP 147 / 73; Pulse 87; Resp 18 S; Pulse Ox 99% on Nebulizer Mask; aa5 12:00 BP 138 / 92; Pulse 92; Resp 19 S; Pulse Ox 99% on R/A; aa5 09:18 Body Mass Index 31.82 (78.93 kg, 157.48 cm) ss 09:18 Pain Scale: Adult ss MDM: 09:13 Medical Screening Exam initiated vanna 10:52 Differential diagnosis: Allergic rhinitis, bronchitis, cocksackie virus, echovirus vanna infection, group A strep tonsillitis, influenza, laryngitis, pharyngitis, tonsillitis, upper respiratory infection, uvulitis. Data reviewed: vital signs, nurses notes, lab test result(s), radiologic studies, plain films. Consideration of Admission/Observation Escalation of care including admission/observation considered. I considered the following discharge prescriptions or medication management in the emergency department Medications were administered in the Emergency Department. See MAR. Independent interpretation of the following test(s) in the Emergency Department X-Ray: My interpretation is cxr neg. Test considered but Not performed: EKG: no ekg. Historians other than the Patient: pt well informed. Care significantly affected by the following chronic conditions: Hypertension, Chronic Obstructive Pulmonary Disease, crohns, pud, psoriasis. 09/03 09:15 Order name: Strep [facility] 09/03 09:15 Order name: Flu; Complete Time: 10:50 [facility] 09/03 09:15 Order name: SARS RAPID; Complete Time: 10:50 [facility] 09/03 10:07 Order name: Throat Culture EDMO 09/03 09:15 Order name: Chest Pa And Lat (2 Views) XRAY; Complete Time: 10:50 [facility] Administered Medications: 09:59 Drug: Levalbuterol Inhalation 3.75 mg Inhalation once Route: Inhalation; aa5 10:24 Follow up: Response: No adverse reaction aa5 09:59 Drug: Ipratropium Inhalation Aerosol 0.5 mg Inhalation once Route: Inhalation; aa5 10:24 Follow up: Response: No adverse reaction aa5 10:02 Drug: AZITHromycin PO 500 mg PO once Route: PO; aa5 10:24 Follow up: Response: No adverse reaction aa5 10:02 Drug: Rocephin (cefTRIAXone) IM 1 grams IM once Route: IM; Site: right gluteus; aa5 10:24 Follow up: Response: No adverse reaction aa5 10:02 Drug: predniSONE PO 60 mg PO once Route: PO; aa5 10:24 Follow up: Response: No adverse reaction aa5 12:10 Drug: Oseltamivir PO 75 mg PO once Route: PO; aa5 12:15 Follow up: Response: No adverse reaction; Medication administered at discharge. aa5 Disposition Summary: 09/03/24 10:57 Discharge Ordered Notes: Location: Home [facility] Problem: new [facility] Symptoms: have improved vanna Condition: Stable vanna Diagnosis - Influenza due to other identified influenza virus with pneumonia - influenza B [facility] - COPD/ Chronic obstructive pulmonary disease, unspecified vanna - Acute upper respiratory infection, unspecified vanna Followup: vanna - With: Private Physician - When: 2 - 3 days - Reason: Recheck today's complaints, Continuance of care, Re-evaluation by your physician Discharge Instructions: - Discharge Summary Sheet [facility] - Chronic Obstructive Pulmonary Disease vanna - Influenza, Adult [facility] - Cool Mist Vaporizer vanna - Chronic Obstructive Pulmonary Disease Exacerbation vanna - Chronic Obstructive Pulmonary Disease, [id number] vanna - Upper Respiratory Infection, Adult, [id number] vanna - Influenza, Adult, [id number] vanna - Cough, Adult [facility] Forms: - Medication Reconciliation Form [facility] - Antibiotic Education [facility] - Prescription Opioid Use [facility] - Patient Portal Instructions [facility] - Leadership Thank You Letter [facility] - Work release form aa5 Prescriptions: - albuterol sulfate 90 mcg/actuation Inhalation HFA Aerosol Inhaler - inhale 2 puff INHALATION route every 4 to 6 hours as needed for shortness of vanna breath or wheezing; 2 unit; Refills: 0, Product Selection Permitted - Xopenex 1.25 mg/3 mL Inhalation Solution for Nebulization - inhale 1 unit NEBULIZATION route every 4-6 hours As needed; 36 unit; Refills: [facility] 0, Product Selection Permitted - Prednisone 20 mg Oral Tablet - take 2 tablets ORAL route once daily for 5 days; 10 tablet; Refills: 0, Product [facility] Selection Permitted - Tamiflu 75 mg Oral capsule - take 1 tablet ORAL route every 12 hours for 4 days; 4 tablet; Refills: 0, [facility] Product Selection Permitted - Zithromax 500 mg Oral Tablet - take 1 tablet ORAL route once daily for 5 days; 5 tablet; Refills: 0, Product [facility] Selection Permitted Signatures: Dispatcher [employer] Kamari Allison MD MD cha Calderon, Audri, RN RN aa5 Sophia Gonzalez RN RN ss Corrections: (The following items were deleted from the chart) 09:16 09:16 Chest Pa And Lat (2 Views)+RAD.RAD.BRZ ordered. EDMS EDMS : 09:16 Group A Streptococcus Rapid Sc+BA.LAB.BRZ ordered. EDMS EDMS 09:16 Influenza Screen (A \T\ B)+BA.LAB.BRZ ordered. EDMS EDMS : 09:16 SARS-COV-2 Antigen Rapid+I.LAB.BRZ ordered. EDMS EDMS
[2024-09-03] MEDS ORDERED: OSELTAMIVIR 75 MG CAP PO ONE (11:57)
[2024-09-03 12:22] VITALS: TEMP 98
[2024-09-03 12:23] VITALS: BP 147/73; O2SAT 99
== END 2024-09-03 12:17 | disposition home or self-care (01) ==
LOC: ER 09:07
DX: J10.00 Influenza due to other identified influenza virus with unspecified type of pneumonia (principal); J44.9 Chronic obstructive pulmonary disease, unspecified; Z11.52 Encounter for screening for COVID-19
CPT/HCPCS: 87070; 36415; 87081; 87804 ×2; 71046; 96372; 99285; 87811; J7512; J2003; J7614; J7644; J0696

== ENCOUNTER 2025-04-12 01:34 | Emergency (ER) | payer OTHER ==
[2025-04-12] MEDS ORDERED: NA CHLORIDE 0.9% 1,000 ML ONE (01:45)
[2025-04-12 02:31] LABS: Hemoglobin 11.9 g/dL (12.0-15.0); MCHC 34.6 g/dL (32.0-36.0)
[2025-04-12 02:35] LABS: Absolute Lymphocytes (CBC) 1.9 K/uL (0.7-4.9); Hematocrit 34.3 % (36.0-45.0); MCH 32.3 pg (27.0-35.0); MCV 93.4 fL (80-100); MPV 6.7 fL (7.6-11.3); Nucleated RBC Absolute Count 0.0 (0-0); Nucleated Red Blood Cells % 0.0 % (0-0); RBC Red Blood Cell Count 3.68 M/uL (3.86-4.86); White Blood Count 6.30 thou/uL (4.3-10.9)
[2025-04-12 02:48] LABS: Anion Gap 10.7 mEq/L (5.0-15.0); BUN Blood Urea Nitrogen 13.0 mg/dL (7-18); Glucose Level 111.0 mg/dL (74-106); Potassium 3.7 mEq/L (3.5-5.1)
--- NOTE | 2025-04-12 04:09 | ER ---
Nurse's Notes [facility] Name: Bárbara Beebe Age: 59 yrs Sex: Female : 1965 Arrival Date: 04/12/2025 Time: 01:34 Bed 15 Private MD: Diagnosis: Adverse effect of benzodiazepines;Hypotension due to drugs Presentation: 04/12 01:38 Chief complaint: Norman Perez stated patient was found walking around in a parking tb4 lot and attempted opening several cars. Coronavirus screen: At this time, the client does not indicate any symptoms associated with coronavirus-19. Ebola Screen: No symptoms or risks identified at this time. Initial Sepsis Screen: Does the patient meet any 2 criteria? No. Patient's initial sepsis screen is negative. Does the patient have a suspected source of infection? No. Patient's initial sepsis screen is negative. Risk Assessment: Do you want to hurt yourself or someone else? Patient reports no desire to harm self or others. Onset of symptoms was April 12, 2025. 01:38 Method Of Arrival: Law Enforcement: Norman Perez tb4 01:38 Acuity: ANGELA 3 tb4 Triage Assessment: 01:38 General: Appears confused. Behavior is calm, cooperative. Pain: Denies pain. EENT: No tb4 signs and/or symptoms were reported regarding the EENT system. Neuro: Level of Consciousness is awake, alert, obeys commands, Oriented to person, place, time, situation, Medical Office Rep are equal bilaterally Moves all extremities. Full function Gait is steady, Speech is normal, Facial symmetry appears normal. Cardiovascular: No deficits noted. Respiratory: No deficits noted. Airway is patent Respiratory effort is even, unlabored, Respiratory pattern is regular, symmetrical. GI: No signs and/or symptoms were reported involving the gastrointestinal system. Abdomen is round Bowel sounds present X 4 quads. : No signs and/or symptoms were reported regarding the genitourinary system. Derm: No signs and/or symptoms reported regarding the dermatologic system. Skin is intact, is healthy with good turgor, Skin is dry, Skin is normal, Skin temperature is warm. Musculoskeletal: No signs and/or symptoms reported regarding the musculoskeletal system. Circulation, motion, and sensation intact. Range of motion: intact in all extremities. Historical: - Allergies: :43 Codeine; tb4 - Home Meds: 01:43 Prozac 10 mg Oral capsule [Active]; tb4 03:44 lisinopril Oral [Active]; folic acid Oral [Active]; Valium Oral [Active]; tizanidine tb4 oral [Active]; - PMHx: 01:43 bleeding ulcers; Crohn's; Hypertension; Multiple Sclerosis; psoriasis; COPD; tb4 - PSHx: 01:43 Appendectomy; back sx; Cholecystectomy; hysterectomy; tb4 - Immunization history:: Adult Immunizations up to date. - Infectious Disease History:: Denies. - Social history:: Smoking status: Reported history of juuling and/or vaping. Patient/guardian denies using tobacco, the patient reports quitting approximately 4 years ago, Patient/guardian denies using alcohol. Screenin:43 [facility] ED Fall Risk Assessment (Adult) History of falling in the last 3 months, tb4 including since admission No falls in past 3 months (0 pts) Confusion or Disorientation No (0 pts) Intoxicated or Sedated No (0 pts) Impaired Gait No (0 pts) Mobility Assist Device Used No (0 pt) Altered Elimination No (0 pt) Score/Fall Risk Level 0 - 2 = Low Risk Maintained a safe environment. Abuse screen: Denies threats or abuse. Denies injuries from another. Nutritional screening: No deficits noted. Tuberculosis screening: No symptoms or risk factors identified. Assessment: 02:17 General: Appears comfortable, confused and tired. Pain: Denies pain. Neuro: Level of tb4 Consciousness is awake, alert, obeys commands, Oriented to person, place, time, situation, Medical Office Rep are equal bilaterally Moves all extremities. Full function Gait is steady, Speech is normal, Facial symmetry appears normal. Cardiovascular: Patient's skin is warm and dry. Respiratory: Reports Airway is patent Respiratory effort is even, unlabored, Respiratory pattern is regular, symmetrical. GI: No signs and/or symptoms were reported involving the gastrointestinal system. : No signs and/or symptoms were reported regarding the genitourinary system. EENT: No signs and/or symptoms were reported regarding the EENT system. Derm: No signs and/or symptoms reported regarding the dermatologic system. Skin is intact, is healthy with good turgor, Skin is dry, Skin is normal. Derm: scraps to bilateral knees. Musculoskeletal: Circulation, motion, and sensation intact. Range of motion: intact in all extremities. 04:34 Reassessment: Patient in bed with eyes closed, no s/s of distress noted, respiration tb4 even and unlabored, vital wnl. Vital Signs: 01:43 BP 88 / 56; Pulse 56; Resp 18; Temp 98.2; Pulse Ox 97% on R/A; Weight 63.5 kg; Height 5 tb4 ft. 3 in. ; Pain 0/10; 03:00 BP 117 / 52; Pulse 55; Resp 14; Pulse Ox 98% on R/A; Pain 0/10; tb4 04:00 BP 116 / 67; Pulse 61; Resp 14; Pulse Ox 98% on R/A; tb4 04:55 BP 121 / 64; Pulse 62; Resp 16; Pulse Ox 100% on R/A; Pain 0/10; tb4 01:43 Body Mass Index 24.80 (63.50 kg, 160.02 cm) tb4 01:43 Pain Scale: Adult tb4 03:00 Pain Scale: Adult tb4 04:55 Pain Scale: Adult tb4 ED Course: 01:35 Patient arrived in ED. rv1 01:38 Arm band placed on right wrist. tb4 01:39 Stanley Poole DO is Attending Physician. tt7 01:43 No provider procedures requiring assistance completed. Initial lab(s) drawn, by me, tb4 sent to lab. Inserted saline lock: 20 gauge in right antecubital area, using aseptic technique. Blood collected. Flushed with 10 mL NS. 02:12 Triage completed. tb4 04:24 Patient has correct armband on for positive identification. Bed in low position. Call tb4 light in reach. Side rails up X 1. Side rails up X2. Client placed on continuous cardiac and pulse oximetry monitoring. NIBP monitoring applied. collar cutter on. Door closed. Lights dimmed. Warm blanket given. 04:55 IV discontinued, intact, bleeding controlled, No redness/swelling at site. Pressure tb4 dressing applied. 04:56 Provided Education on: Follow up with primary care. tb4 Administered Medications: 02:00 Drug: NS 0.9% IV 2000 ml IV at 1000 ml/hr once; to be given as a bolus over 60 minutes tb4 Route: IV; Rate: 1000 ml/hr; Site: right antecubital; 04:23 Follow up: Response: No adverse reaction; IV Status: Completed infusion tb4 Medication: 01:43 VIS not applicable for this client. tb4 Outcome: 04:09 Discharge ordered by . tt7 04:55 Discharged to home ambulatory, tb4 04:55 Condition: stable 04:55 Discharge instructions given to patient, Instructed on discharge instructions, follow up and referral plans. Demonstrated understanding of instructions, follow-up care, 04:57 Patient left the ED. tb4 Signatures: Treva Staples rv1 Juliet Del Rosario, RN RN tb4 Stanley Poole DO DO tt7
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
[2025-04-12 05:20] VITALS: TEMP 98.2
[2025-04-12 05:24] VITALS: BP 121/64; O2SAT 100
== END 2025-04-12 04:57 | disposition home or self-care (01) ==
LOC: ER 01:34
DX: I95.2 Hypotension due to drugs (principal); T42.4X5A Adverse effect of benzodiazepines, initial encounter
CPT/HCPCS: 96361; 85025; 80048; 36415; 96360; 99285; J7030